=== PATIENT | male | born 1945 | race Caucasian/White ===

== ENCOUNTER → 2016-10-10 | Outpatient (CLI) | payer MEDICARE, OTHER ==
[~2016-10-10] MED LIST: CEPH500C PO; CYCL10TA9 PO; INSASP10V SQ; INSU100C; INSU100I5 SQ; POLY17PO23 PO; PREG25CA; TRM50T PO
--- OUTSIDE RECORDS SUMMARY | 2016-10-10 15:04 | XMS REPORT | Continuity of Care Document ---
Author Author [facility] Organization [facility] Address Unknown Phone Unavailable Care Team Providers Care Manager Wind Name Role Phone Josy Burleson PCP [phone] Source Comments Some departments are not documenting in the electronic medical record. If you do not see the information that you expected, contact Release of Information in the Health Information Management department at [phone] for further assistance in locating additional records.[facility] Active Allergies and Adverse Reactions Allergen Noted Date Severity Reactions Comments Iv Contrast Dye, Iodine 03/18/2013 RASH Containing Current Medications Prescription Sig. Disp. Refills Start End Date Status Date insulin detemir(+) Inject 30 Units into Active (LEVEMIR) 100 unit/mL area(s) as directed at Soln bedtime daily. insulin lispro(+) Inject 30 Units into Active (HUMALOG) 100 unit/mL area(s) as directed three injection times daily before meals. amiodarone (CORDARONE) Take 200 mg by mouth at Active 200 mg tablet bedtime daily. aspirin 325 mg tablet Take 1 Tab by mouth 30 Tab 0 03/13/20 Active daily. 14 oxyCODONE-acetaminophen Take 1-2 Tabs by mouth 80 Tab 0 03/13/20 Active (PERCOCET; ENDOCET; every 4 hours as needed 14 ROXICET) 5-325 mg tablet for Pain Max 12 tabs/day docusate (COLACE) 100 mg Take 1 Cap by mouth twice 30 Cap 0 03/13/20 Active capsule daily. 14 clindamycin(+) (CLEOCIN) Take 1 Cap by mouth three 100 Cap 0 03/25/20 Active 300 mg capsule times daily. 14 Active Problems Problem Noted Date Cellulitis of toe 03/28/2014 Osteomyelitis of toe (HCC) 03/28/2014 Foot infection 03/10/2014 Retinal detachment, tractional, left eye 12/13/2013 Overview: S/p PPV, MP, L ast Assessment & Plan: POW 1 after PPV EL looks good. Taper PF to TID, stop antibiotics. Non-proliferative diabetic retinopathy, mild, right eye 09/03/2013 Last Assessment & Plan: - no significant DME on exam today. Discussed importance of continued glucose monitoring Vitreous hemorrhage of left eye (HCC) 07/07/2013 Overview: Noticed as rapid loss of vision 4-5 weeks ago. L ast Assessment & Plan: Formatting of this note may be different from the original. Here for TOYIN in prep for surgery next week. Answered all questions. PDR in OS. present for discussion. Intravitreal Injection Procedure OCT and other investigations were carefully reviewed and a decision was made to inject the eye with medication for treatment of the condition. I discussed diagnosis and plan for intravitreal injection with patient. Risks, benefits and alternatives were discussed with patient. Risk of infection, and signs and symptoms of infection discussed at length with patient. Discussed fluctuating and deteriorating vision over the course of treatment. Patient elects to proceed with injection, informed consent was obtained and all questions were answered. Eye OS Diagnosis: PDR VH Pre-injection drops: Tetracaine 0.5% drops X 5% Betadine X Speculum used X Tetravisc X Injection Needle: 27 Gauge Needle 30 Gauge Needle Needle supplied with medication X Intravitreal injection: Concentration Volume (in mL) Aflibercept (Eylea) 2 mg / 0.05 mL Ranibizumab (Lucentis) 0.3 mg / 0.05 mL Ranibizumab (Lucentis) 0.5 mg / 0.05 mL Bevacizumab (Avastin) 1.25 mg / 0.05 mL X Triamcinolone (Kenalog) 40 mg / mL Triamcinolone (Triesence) 40 mg / mL Vancomycin 1 mg / 100 microLiters Ceftazidime 2 mg / 100 microLiters Zero units wasted Post-operative examination: Intraocular pressure checked by tonopen and found to be wnl mmHg; no complications noted X Antibiotic ointment instilled in the eye Patient stable at discharge I personally performed the Injection Nj Martell MD Pseudophakia of both eyes 07/07/2013 Persistent vasculature syndrome of left eye 03/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 L ast Assessment & Plan: Observe Proliferative diabetic retinopathy of left eye 03/18/2013 Last Assessment & Plan: Dense VH TRD noted on b scan. Plan TOYIN and then PPV MP EL. Had a detailed discussion with him and his in detail. Discussed high risk of blindness in this condition. Discussed risks, benefits and alternatives of surgical procedure in detail. I explained the procedure in detail. Discussed 60% chance of success with this surgery, 40 % chance of reop. Discussed rare risk of infection, blindness and loss of eye. Discussed cataract progression post-surgery. Patient voiced an understanding of our discussion. Patient s was present for the discussion. Social History Tobacco Use Types Packs/Day Years Used Date Never Smoker Smokeless Tobacco: Never Used Alcohol Use Drinks/Week oz/Week Comments No Last Filed Vital Signs Vital Sign Reading Time Taken Blood Pressure 120/70 04/14/2014 11:15 AM CDT Pulse 60 04/14/2014 11:15 AM CDT Temperature 36.7 C (98.1 F) 04/14/2014 11:15 AM CDT Respiratory Rate 12 04/14/2014 11:15 AM CDT Height 1.905 m (6' 3") 04/14/2014 11:57 AM CDT Weight 83.915 kg (185 lb) 04/14/2014 11:57 AM CDT Body Mass Index 23.12 04/14/2014 11:57 AM CDT Oxygen Saturation 96% 03/13/2014 2:10 PM CDT Plan of Care Health Maintenance Due Date Last Done Comments Physical (Comprehensive) 1952 Exam Pertussis Vaccine 1955 Tetanus Vaccine 1961 Colorectal Cancer 1994 Screening Shingles Vaccine 2004 Prevnar/Pneumovax (#1) 2009 Influenza Vaccine 04/18/2016 Results from Last 3 Months Not on file
[2016-10-10 15:19] LABS: BASOPHILS % (AUTO) 1 % (0-10); EOSINOPHILS # (AUTO) 0.1 10^3/uL (0.0-0.3); EOSINOPHILS % (AUTO) 1 % (0-10); LYMPHOCYTES # (AUTO) 1.3 X 10^3 (1.0-4.0); LYMPHOCYTES % (AUTO) 17 % (12-44); MEAN CORPUSCULAR HEMOGLOBIN 28 PG (25-34); MEAN CORPUSCULAR HGB CONC 34 G/DL (32-36); MEAN CORPUSCULAR VOLUME 84 FL (80-99); MEAN PLATELET VOLUME 9.1 FL (7.4-10.4); MONOCYTES # (AUTO) 0.6 X 10^3 (0.0-1.0); MONOCYTES % (AUTO) 7 % (0-12); NEUTROPHILS # (AUTO) 5.6 X 10^3 (1.8-7.8); NEUTROPHILS % (AUTO) 74 % (42-75); PLATELET COUNT 318 10^3/uL (130-400); RED BLOOD COUNT 4.35 10^6/uL (4.35-5.85); RED CELL DISTRIBUTION WIDTH 13.3 % (10.0-14.5); WHITE BLOOD COUNT 7.5 10^3/uL (4.3-11.0)
[2016-10-10 15:40] LABS: ALBUMIN 3.9 G/DL (3.2-4.5); BILIRUBIN,TOTAL 1.2 MG/DL (0.1-1.0); CREATININE SERUM 1.27 MG/DL (0.60-1.30); POTASSIUM 4.3 MMOL/L (3.6-5.0); TOTAL PROTEIN 7.2 G/DL (6.4-8.2)
[2016-10-10 16:26] LABS: THYROID STIMULATING HORMONE 9.45 UIU/ML (0.35-4.94)
== END ==
LOC: LAB 14:57
PROVIDERS: ATTEND Internal Medicine
DX: R53.83 Other fatigue (principal); R60.9 Edema, unspecified; I25.10 Atherosclerotic heart disease of native coronary artery without angina pectoris; K59.00 Constipation, unspecified
CPT/HCPCS: 36415; 80053; 83880; 84439; 84443; 85025

== ENCOUNTER → 2016-11-21 | Outpatient (CLI) | payer MEDICARE, OTHER ==
--- NOTE | 2016-11-21 16:02 | Diagnostic Imaging Report ---
INDICATION: Fell. Neck pain. EXAMINATION: Four views of the cervical spine were obtained. FINDINGS: Good alignment of the vertebral bodies. Body heights and disc spaces are well maintained. The odontoid is intact. The atlantoaxial joint appears normal. On the lateral view, there is a question of fracture along the inferior posterior aspect of the C6 vertebral body. Facets appear in good alignment. The prevertebral soft tissues are not widened. IMPRESSION: Question of possible fracture along the posterior inferior aspect of the C7 vertebral body. With patient's symptoms would recommend CT scan of the cervical spine. Critical finding. Report was called to Dr. Thai Burleson) at 3:51 p.m., by rishi. Dictated by: Dictated on workstation # [id number]
== END ==
LOC: RAD 15:08
PROVIDERS: ATTEND Internal Medicine
DX: M54.2 Cervicalgia (principal); X58.XXXA Exposure to other specified factors, initial encounter; Y99.8 Other external cause status
CPT/HCPCS: 72040

== ENCOUNTER 2017-01-15 11:21 | Outpatient (RCR) | payer MEDICARE, OTHER | END 2017-01-15 13:45 | disposition home or self-care (01) | PROVIDERS: ATTEND Internal Medicine | DX: M54.2 Cervicalgia (principal); M62.830 Muscle spasm of back ==

== ENCOUNTER 2017-02-14 17:57 | Inpatient (IN) | payer MEDICARE, OTHER ==
[~2017-02-14] VITALS: Ht 190.5 cm; Wt 74.8 kg
--- OUTSIDE RECORDS SUMMARY | 2017-02-14 18:03 | XMS REPORT | Continuity of Care Document ---
Author Author [facility] Organization [facility] Address Unknown Phone Unavailable Care Team Providers Care Before School Babysitter Name Role Phone Thai Burleson Josy PCP [phone] Source Comments Some departments are not documenting in the electronic medical record. If you do not see the information that you expected, contact Release of Information in the Health Information Management department at [phone] for further assistance in locating additional records.[facility] Active Allergies and Adverse Reactions Allergen Noted [...] antibiotics. Non-proliferative diabetic retinopathy, mild, right eye ([facility]) 09/03/2013 Last Assessment & Plan: - no significant DME on exam today. Discussed importance of continued glucose monitoring Vitreous hemorrhage of left eye ([facility]) 07/07/2013 Overview: Noticed as rapid loss of [...] Observe Proliferative diabetic retinopathy of left eye (HCC) 03/18/2013 Last Assessment & Plan: Dense VH TRD noted on b scan. Plan TOYIN and then PPV RICKEY EL. Had a detailed discussion with him [...] Vaccine 2004 Prevnar/Pneumovax (#1) 2009 Influenza Vaccine 04/18/2017 Results from Last 3 Months Not on file
--- OUTSIDE RECORDS SUMMARY | 2017-02-14 18:04 | XMS REPORT | Continuity of Care Document ---
Author Author [facility] Organization [facility] Address Unknown Phone Unavailable Allergies Active Description Code Type Severity Reaction Onset Reported/Identified Relationship to Patient Clinical Status Yes Iodinated Contrast Media - IV Dye [id number] Drug Allergy Mild RASH 01/06/2007 Yes Iodinated Contrast Media - Oral and [id number] Drug Allergy Mild RASH 01/06/2007 Medications Problems Date Dx Coded Attending Type Code Diagnosis Diagnosed By 12/24/2010 Ot 880.03 OPEN WOUND OF UPPER ARM 12/24/2010 Ot E000.8 OTHER EXTERNAL CAUSE STATUS 12/24/2010 Ot E849.0 ACCIDENT IN HOME 12/24/2010 Ot E906.0 DOG BITE 12/27/2010 Ot 578.1 BLOOD IN STOOL 12/27/2010 Ot 783.21 LOSS OF WEIGHT 12/27/2010 Ot 787.99 OTHER GI SYSTEM SYMPTOMS 01/11/2011 Ot 041.00 BACTERIAL INFEC DUE TO UNSPECIFIED STREP 01/11/2011 Ot 041.04 STREPTOCOCCUS INFECTION NOS, GROUP D (EN 01/11/2011 Ot 041.11 METHICILLIN SUSCEPTIBLE STAPHYLOCOCCUS A 01/11/2011 Ot 250.63 DIAB W NEURO MANIFEST, TYPE I [JUVENILE 01/11/2011 Ot 337.1 AUT NEUROPTHY IN OTH DIS 01/11/2011 Ot 354.2 ULNAR NERVE LESION 01/11/2011 Ot 414.01 CORONARY ATHEROSCLEROSIS OF [place] CORON 01/11/2011 Ot 585.3 CHRONIC KIDNEY DISEASE, STAGE III (MODER 01/11/2011 Ot 607.84 IMPOTENCE, ORGANIC ORIGN 01/11/2011 Ot 682.6 CELLULITIS OF LEG 01/11/2011 Ot 682.7 CELLULITIS OF FOOT 01/11/2011 Ot 707.15 ULCER OF OTHER PART OF FOOT 01/11/2011 Ot V15.82 HISTORY OF TOBACCO USE 01/11/2011 Ot 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 04/14/2011 Ot 250.80 DIAB W OT SPEC MANIFEST, TYPE II OR UNS 04/14/2011 Ot 707.15 ULCER OF OTHER PART OF FOOT 05/13/2011 Ot 250.80 DIAB W OTH SPEC MANIFEST, TYPE II OR UNS 05/13/2011 Ot 707.15 ULCER OF OTHER PART OF FOOT 05/11/2013 MARTHA DAHL DO Ot 250.80 DIAB W OTH SPEC MANIFEST, TYPE II OR UNS 05/11/2013 MARTHA DAHL DO Ot 427.31 ATRIAL FIBRILLATION 05/11/2013 MARTHA DAHL DO Ot 922.2 CONTUSION ABDOMINAL WALL 05/11/2013 MARTHA DAHL DO Ot 959.19 OTH INJURY OF OTHER SITES OF TRUNK 05/11/2013 MARTHA DAHL DO Ot E000.8 OTHER EXTERNAL CAUSE STATUS 05/11/2013 MARTHA DAHL DO Ot E849.0 ACCIDENT IN HOME 05/11/2013 MARTHA DAHL DO Ot E917.7 FURNITURE ACC W SUB FALL 08/04/2015 Ot 786.09 08/04/2015 Ot 681.10 08/04/2015 MARTHA DAHL DO Ot 396.3 08/04/2015 MARTHA DAHL DO Ot 427.31 08/04/2015 DENA LINDER, BEVERLY Ferris Ot 136.9 08/04/2015 DENA LINDER, BEVERLY Ferris Ot 250.80 08/04/2015 DENA LINDER, BEVERLY Ferris Ot 733.99 08/04/2015 OTHER, UNLISTED Ot V58.62 08/04/2015 OTHER, UNLISTED Ot V58.83 08/04/2015 GISSELL LINDER, BOZENA Longo Ot V58.62 08/04/2015 GISSELL LINDER, BOZENA Longo Ot V58.83 08/04/2015 OTHER, UNLISTED Ot V58.62 08/04/2015 OTHER, UNLISTED Ot V58.83 08/24/2015 DENA LINDER, BEVERLY Ferris Ot M54.5 08/24/2015 DENA LINDER, BEVERLY Ferris Ot W19.XXXA 08/24/2015 DENA LINDER, BEVERLY Ferris Ot Y99.8 12/28/2015 NALINI HARELY MD Ot E11.42 TYPE 2 DIABETES MELLITUS WITH DIABETIC P 12/28/2015 NALINI HARLEY MD Ot Z79.4 RESIDENTIAL (CURRENT) USE OF INSULIN 12/29/2015 ODGERS MD, NALINI K Ot E11.42 TYPE 2 DIABETES MELLITUS WITH DIABETIC P 12/29/2015 CRICKET LINDER, NALINI Ibarra Ot Z79.4 FARMWORKER BULBS (CURRENT) USE OF INSULIN 01/02/2016 Ot 681.10 CELLULITIS, TOE NOS 01/02/2016 MARTHA DAHL DO Ot 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 01/02/2016 MARTHA DAHL DO Ot 427.31 ATRIAL FIBRILLATION 01/02/2016 DENA LINDER, BEVERLY Ferris Ot 136.9 INFECT/PARASITE DIS NOS 01/02/2016 DENA LINDER, BEVERLY Ferris Ot 250.80 DIAB W OTH SPEC MANIFEST, TYPE II OR UNS 01/02/2016 BEVERLY FERNANDES MD Ot 733.99 BONE CARTILAGE DIS NEC 01/02/2016 OTHER, UNLISTED Ot V58.62 ENCOUNT FOR LONG-TERM(CURRENT) USE OF AN 01/02/2016 OTHER, UNLISTED Ot V58.83 ENCOUNTER FOR THERAPEUTIC DRUG MONITORIN 01/02/2016 BOZENA BORRERO MD Ot V58.62 ENCOUNT FOR LONG-TERM(CURRENT) USE OF AN 01/02/2016 BOZENA BORRERO MD Ot V58.83 ENCOUNTER FOR THERAPEUTIC DRUG MONITORIN 01/02/2016 OTHER, UNLISTED Ot V58.62 ENCOUNT FOR LONG-TERM(CURRENT) USE OF AN 01/02/2016 OTHER, UNLISTED Ot V58.83 ENCOUNTER FOR THERAPEUTIC DRUG MONITORIN 01/02/2016 BEVERLY FERNANDES MD Ot M54.5 LOW BACK PAIN 01/02/2016 BEVERLY FERNANDES MD Ot W19.XXXA UNSPECIFIED FALL, INITIAL ENCOUNTER 01/02/2016 DENA LINDER, BEVERLY Ferris Ot Y99.8 OTHER EXTERNAL CAUSE STATUS 01/23/2016 DENA LINDER, BEVERLY Ferris Ot E11.43 TYPE 2 DIABETES W DIABETIC AUTONOMIC (PO 01/23/2016 BEVERLY FERNANDES MD Ot Z91.81 HISTORY OF FALLING 01/31/2016 BEVERLY FERNANDES MD Ot E11.43 TYPE 2 DIABETES W DIABETIC AUTONOMIC (PO 01/31/2016 BEVERLY FERNANDES MD Ot Z91.81 HISTORY OF FALLING 03/06/2016 BEVERLY FERNANDES MD Ot E11.43 TYPE 2 DIABETES W DIABETIC AUTONOMIC (PO 03/06/2016 BEVERLY FERNANDES MD Ot Z91.81 HISTORY OF FALLING 04/18/2016 Ot 681.10 CELLULITIS, TOE NOS 04/18/2016 MARTHA DAHL DO Ot 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 04/18/2016 NABILA RIGO BACHVega Ibarra Ot 427.31 ATRIAL FIBRILLATION 04/18/2016 BEVERLY FERNANDES MD Ot 136.9 INFECT/PARASITE DIS NOS 04/18/2016 BEVERLY FERNANDES MD Ot 250.80 DIAB W OTH SPEC MANIFEST, TYPE II OR UNS 04/18/2016 BEVERLY FERNANDES MD Ot 733.99 BONE CARTILAGE DIS NEC 04/18/2016 OTHER, UNLISTED Ot V58.62 ENCOUNT FOR LONG-TERM(CURRENT) USE OF AN 04/18/2016 OTHER, UNLISTED Ot V58.83 ENCOUNTER FOR THERAPEUTIC DRUG MONITORIN 04/18/2016 BOZENA BORRERO MD Ot V58.62 ENCOUNT FOR LONG-TERM(CURRENT) USE OF AN 04/18/2016 BOZENA BORRERO MD Ot V58.83 ENCOUNTER FOR THERAPEUTIC DRUG MONITORIN 04/18/2016 OTHER, UNLISTED Ot V58.62 ENCOUNT FOR LONG-TERM(CURRENT) USE OF AN 04/18/2016 OTHER, UNLISTED Ot V58.83 ENCOUNTER FOR THERAPEUTIC DRUG MONITORIN 04/18/2016 BEVERLY FERNANDES MD Ot M54.5 LOW BACK PAIN 04/18/2016 BEVERLY FERNANDES MD Ot W19.XXXA UNSPECIFIED FALL, INITIAL ENCOUNTER 04/18/2016 BEVERLY FERNANDES MD Ot Y99.8 OTHER EXTERNAL CAUSE STATUS 04/19/2016 BEVERLY FERNANDES MD Ot M79.601 PAIN IN RIGHT ARM 04/19/2016 BEVERLY FERNANDES MD Ot M79.602 PAIN IN LEFT ARM 04/19/2016 BEVERLY FERNANDES MD Ot M79.604 PAIN IN RIGHT LEG 04/19/2016 BEVERLY FERNANDES MD Ot M79.605 PAIN IN LEFT LEG 04/19/2016 BEVERLY FERNANDES MD Ot R29.898 OT SYMPTOMS AND SIGNS INVOLVING THE MUS 04/23/2016 BEVERLY FERNANDES MD Ot M79.601 PAIN IN RIGHT ARM 04/23/2016 BEVERLY FERNANDES MD Ot M79.602 PAIN IN LEFT ARM 04/23/2016 BEVERLY FERNANDES MD Ot M79.604 PAIN IN RIGHT LEG 04/23/2016 BEVERLY FERNANDES MD Ot M79.605 PAIN IN LEFT LEG 04/23/2016 BEVERLY FERNANDES MD Ot R29.898 OTH SYMPTOMS AND SIGNS INVOLVING THE MUS 05/09/2016 BEVERLY FERNANDES MD Ot M79.601 PAIN IN RIGHT ARM 05/09/2016 BEVERLY FERNANDES MD Ot M79.602 PAIN IN LEFT ARM 05/09/2016 BEVERLY FERNANDES MD Ot M79.604 PAIN IN RIGHT LEG 05/09/2016 BEVERLY FERNANDES MD Ot M79.605 PAIN IN LEFT LEG 05/09/2016 BEVERLY FERNANDES MD Ot R29.898 OTH SYMPTOMS AND SIGNS INVOLVING THE MUS 10/10/2016 BEVERLY FERNANDES MD Ot M79.601 PAIN IN RIGHT ARM 10/10/2016 BEVERLY FERNANDES MD Ot M79.602 PAIN IN LEFT ARM 10/10/2016 BEVERLY FERNANDES MD Ot M79.604 PAIN IN RIGHT LEG 10/10/2016 BEVERLY FERNANDES MD Ot M79.605 PAIN IN LEFT LEG 10/10/2016 BEVERLY FERNANDES MD Ot R29.898 OTH SYMPTOMS AND SIGNS INVOLVING THE MUS 10/10/2016 Ot 681.10 CELLULITIS, TOE NOS 10/10/2016 MARTHA DAHL DO Ot 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 10/10/2016 MARTHA DAHL DO Ot 427.31 ATRIAL FIBRILLATION 10/10/2016 BEVERLY FERNANDES MD Ot 136.9 INFECT/PARASITE DIS NOS 10/10/2016 BEVERLY FERNANDES MD Ot 250.80 DIAB W OTH SPEC MANIFEST, TYPE II OR UNS 10/10/2016 BEVERLY FERNANDES MD Ot 733.99 BONE CARTILAGE DIS NEC 10/10/2016 OTHER, UNLISTED Ot V58.62 ENCOUNT FOR LONG-TERM(CURRENT) USE OF AN 10/10/2016 OTHER, UNLISTED Ot V58.83 ENCOUNTER FOR THERAPEUTIC DRUG MONITORIN 10/10/2016 BOZENA BORRERO MD Ot V58.62 ENCOUNT FOR LONG-TERM(CURRENT) USE OF AN 10/10/2016 BOZENA BORRERO MD Ot V58.83 ENCOUNTER FOR THERAPEUTIC DRUG MONITORIN 10/10/2016 OTHER, UNLISTED Ot V58.62 ENCOUNT FOR LONG-TERM(CURRENT) USE OF AN 10/10/2016 OTHER, UNLISTED Ot V58.83 ENCOUNTER FOR THERAPEUTIC DRUG MONITORIN 10/10/2016 BEVERLY FERNANDES MD Ot M54.5 LOW BACK PAIN 10/10/2016 BEVERLY FERNANDES MD Ot W19.XXXA UNSPECIFIED FALL, INITIAL ENCOUNTER 10/10/2016 BEVERLY FERNANDES MD Ot Y99.8 OTHER EXTERNAL CAUSE STATUS 10/10/2016 BEVERLY FERNANDES MD Ot M79.601 PAIN IN RIGHT ARM 10/10/2016 BEVERLY FERNANDES MD Ot M79.602 PAIN IN LEFT ARM 10/10/2016 BEVERLY FERNANDES MD Ot M79.604 PAIN IN RIGHT LEG 10/10/2016 BEVERLY FERNANDES MD, Ot M79.605 PAIN IN LEFT LEG 10/10/2016 BEVERLY FERNANDES MD Ot R29.898 OTH SYMPTOMS AND SIGNS INVOLVING THE MUS 11/01/2016 BEVERLY FERNANDES MD Ot I25.10 ATHSCL HEART DISEASE OF [place] CORONARY 11/01/2016 BEVERLY FERNANDES MD Ot K59.00 CONSTIPATION, UNSPECIFIED 11/01/2016 BEVERLY FERNANDES MD Ot R53.83 OTHER FATIGUE 11/01/2016 BEVERLY FERNANDES MD Ot R60.9 EDEMA, UNSPECIFIED 12/23/2016 BEVERLY FERNANDES MD Ot M54.2 CERVICALGIA 12/23/2016 BEVERLY FERNANDES MD Ot M62.830 MUSCLE SPASM OF BACK 12/31/2016 BEVERLY FERNANDES MD Ot M54.2 CERVICALGIA 12/31/2016 BEVERLY FERNANDES MD Ot X58.XXXA EXPOSURE TO OTHER SPECIFIED FACTORS, INI 12/31/2016 BEVERLY FERNANDES MD Ot Y99.8 OTHER EXTERNAL CAUSE STATUS 01/10/2017 BEVERLY FERNANDES MD Ot M54.2 CERVICALGIA 01/10/2017 BEVERLY FERNANDES MD Ot M62.830 MUSCLE SPASM OF BACK Procedures Code Description Performed By Performed On 80.88 01/04/2011 83.39 01/09/2011 86.59 01/09/2011 Results Test Result Range Complete blood count (CBC) with automated white blood cell (WBC) differential - 10/10/16 15:10 Blood leukocytes automated count (number/volume) 7.5 10*3/ uL 4.3-11.0 Blood erythrocytes automated count (number/volume) 4.35 10*6 /uL 4.35-5.85 Venous blood hemoglobin measurement (mass/volume) 12.3 g/dL 13.3-17.7 Blood hematocrit (volume fraction) 37 % 40-54 Automated erythrocyte mean corpuscular volume 84 [foz_us] 80-99 Automated erythrocyte mean corpuscular hemoglobin (mass per erythrocyte) 28 pg 25-34 Automated erythrocyte mean corpuscular hemoglobin concentration measurement ( mass/volume) 34 g/dL 32-36 Automated erythrocyte distribution width ratio 13.3 % 10.0-14.5 Automated blood platelet count (count/volume) 318 10*3/uL 130-400 Automated blood platelet mean volume measurement 9.1 [foz_us ] 7.4-10.4 Automated blood neutrophils/100 leukocytes 74 % 42-75 Automated blood lymphocytes/100 leukocytes 17 % 12-44 Blood monocytes/100 leukocytes 7 % 0-12 Automated blood eosinophils/100 leukocytes 1 % 0-10 Automated blood basophils/100 leukocytes 1 % 0-10 Blood neutrophils automated count (number/volume) 5.6 10*3 1.8-7.8 Blood lymphocytes automated count (number/volume) 1.3 10*3 1.0-4.0 Blood monocytes automated count (number/volume) 0.6 10*3 0.0-1.0 Automated eosinophil count 0.1 10*3/uL 0.0-0.3 Automated blood basophil count (count/volume) 0.0 10*3/uL 0.0-0.1 Comprehensive metabolic panel - 10/10/16 15:10 Serum or plasma sodium measurement (moles/volume) 139 mmol/ L 135-145 Serum or plasma potassium measurement (moles/volume) 4.3 mmol/L 3.6-5.0 Serum or plasma chloride measurement (moles/volume) 101 mmol /L 98-107 Carbon dioxide 24 mmol/L 21-32 Serum or plasma anion gap determination (moles/volume) 14 mmol/L 5-14 Serum or plasma urea nitrogen measurement (mass/volume) 13 mg/dL 7-18 Serum or plasma creatinine measurement (mass/volume) 1.27 mg /dL 0.60-1.30 Serum or plasma urea nitrogen/creatinine mass ratio 10 NRG Serum or plasma creatinine measurement with calculation of estimated glomerular filtration rate 56 NRG Serum or plasma glucose measurement (mass/volume) 215 mg/dL 70-105 Serum or plasma calcium measurement (mass/volume) 9.0 mg/dL 8.5-10.1 Serum or plasma total bilirubin measurement (mass/volume) 1.2 mg/dL 0.1-1.0 Serum or plasma alkaline phosphatase measurement (enzymatic activity/volume) 39 U/L 40-136 Serum or plasma aspartate aminotransferase measurement (enzymatic activity/ volume) 15 U/L 5-34 Serum or plasma alanine aminotransferase measurement (enzymatic activity/volume ) 12 U/L 0-55 Serum or plasma protein measurement (mass/volume) 7.2 g/dL 6.4-8.2 Serum or plasma albumin measurement (mass/volume) 3.9 g/dL 3.2-4.5 Serum or plasma lithium measurement (moles/volume) - 10/10/16 15:10 BNP level 598.3 pg/mL <100.0 THYROID STIMULATING HORMONE - 10/10/16 15:10 THYROID STIMULATING HORMONE 9.45 u[iU]/mL 0.35-4.94 Serum or plasma thyroxine (T4) free measurement (mass/volume) - 10/10/16 15:10 Serum or plasma thyroxine (T4) free measurement (mass/volume) 0.93 ng/dL 0.70-1.48 Encounters ACCT No. Visit Date/Time Discharge Status Pt. Type Provider Facility Loc./Unit Complaint [id number] 01/15/2017 11:21:00 2016 13:45:00 DIS Outpatient BEVERLY FERNANDES MD [facility] REHAB CERVICALGIA WITH MUSCLE SPASM POST FALL [id number] 02/15/2016 11:16:00 2015 14:50:00 DIS Outpatient BEVERLY FERNANDES MD [facility] REHAB DIABETES MELLITUS W PERIPHERAL NEUROPATHY;DECONDIT [id number] 12/28/2015 15:08:00 2015 17:41:00 DIS Emergency NALINI HARLEY MD [facility] ER WEAKNESS,LOSS OF CONTROL IN LEGS [id number] 03/24/2014 18:29:00 2013 23:59:59 CLS Outpatient OTHER, UNLISTED [facility] LABNPT RESIDENTIAL MED USE, [id number] 03/15/2014 16:50:00 2013 23:59:59 CLS Outpatient GISSELL LINDER, BOZENA E [facility] LABNPT FARMWORKER BULBS MED USE OF ANTIBIOTICS [id number] 03/14/2014 20:30:00 2013 23:59:59 CLS Outpatient OTHER, UNLISTED [facility] LABNPT FARMWORKER BULBS USE OF ANTIBIOTICS [id number] 03/02/2014 10:53:00 2013 23:59:59 CLS Outpatient BEVERLY FERNANDES MD [facility] RAD DIABETES R FOOT INFECTION [id number] 05/14/2013 10:52:00 2012 23:59:59 CLS Outpatient MARTHA DAHL DO [facility] CARD AFIB [id number] 05/11/2013 05:27:00 2012 07:55:00 DIS Emergency NABILA MARTHA [facility] ER FALL/BACK PAIN LOW BLOOD SUGAR [id number] 11/21/2016 15:08:00 ACT Outpatient BEVERLY FERNANDES MD [facility] RAD NECK PAIN [id number] 10/10/2016 14:57:00 ACT Outpatient BEVERLY FERNANDES MD [facility] LAB FATIGUE [id number] 04/18/2016 08:44:00 ACT Outpatient BEVERLY FERNANDES MD [facility] RAD BILATERAL UPPER AND LOWER WEAKNESS AND LUMBAR BACK [id number] 08/04/2015 10:59:00 ACT Outpatient BEVERLY FERNANDES MD [facility] RAD FALL WITH BACK PAIN [id number] 05/24/2011 13:49:00 Document Registration [id number] 05/13/2011 11:15:00 Document Registration [id number] 04/11/2011 11:45:00 Document Registration [id number] 01/02/2011 18:18:00 Document Registration [id number] 12/27/2010 06:39:00 Document Registration [id number] 12/24/2010 20:47:00 Document Registration [id number] 03/01/2010 14:39:00 Document Registration
--- NOTE | 2017-02-14 18:34 | ED Lower Extremity ---
General Chief Complaint: General Problems/Pain Stated Complaint: LT INNER THIGH PAIN Nursing Triage Note: PT AMBULATED TO ROOM. PT COMPLAINS OF LEFT INNER THIGH PAIN AND REDNESS TO LEFT ANKLE WELL. PT STATES THAT HE WENT TO THE DOCTOR FRIDAY FOR THIS SAME REASON AND HE WAS PRESCRIBED ANTIBIOTICS AND NOTHING HAS GOTTEN BETTER SINCE THEN. Nursing Sepsis Screen: No Definite Risk Source: patient Exam Limitations: no limitations (REUBEN ELLIS APRN) History of Present Illness Time seen by provider: 18:32 Initial Comments To ER with left leg pain. This began at the first of this week. He called his regular physician Dr. Burleson who treated him with antibiotics. Patient denies improvement. He is a diabetic. Denies fevers or chills. He now has redness to the medial aspect of the entire left leg from the ankle all the way up to the groin. 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 Onset: just prior to arrival Severity: moderate Pain/Injury Location: left leg Modifying Factors: Worse With Movement (REUBEN ELLIS APRN) Allergies and Home Medications Allergies Coded Allergies: Iodinated Contrast- Oral and IV Dye (Unverified Allergy, Mild, RASH, ) Home Medications Insulin Determir 100 Unit/1 Ml Insuln.pen, 45 UNITS SQ HS, (Reported) Insulin Human Lispro 100 U/Ml Vial, 20 UNITS SQ, (Reported) 20 UNITS BEFORE EVENING MEAL Insulin Lispro 100 Unit/1 Ml Cartridge, 15 UNITS, (Reported) BEFORE NOON MEAL Constitutional: see HPI EENTM: see HPI Respiratory: no symptoms reported Cardiovascular: no symptoms reported Genitourinary: no symptoms reported Musculoskeletal: see HPI Skin: see HPI Psychiatric/Neurological: No Symptoms Reported (REUBEN ELLIS APRN) Past Fhafhqs-Dhfoaj-Udaztk Hx Patient Social History Alcohol Use: Denies Use Recreational Drug Use: No Smoking Status: Never a Smoker 2nd Hand Smoke Exposure: No Recent Foreign Travel: No Contact w/Someone Who Travel: No Recent Infectious Disease Expo: No Recent Hopitalizations: No (REUBEN ELLIS APRN) Immunizations Up To Date Tetanus Booster (TDap): Less than 5yrs (REUBEN ELLIS APRN) Seasonal Allergies Seasonal Allergies: No (REUBEN ELLIS APRN) Surgeries HX Surgeries: Yes (eye surg, ear surg,) Surgeries: CABG (REUBEN ELLIS APRN) Respiratory Hx Respiratory Disorders: No (REUBEN ELLIS APRN) Cardiovascular Hx Cardiac Disorders: Yes Cardiac Disorders: Coronary Artery Disease (REUBEN ELLIS APRN) Neurological Hx Neurological Disorders: Yes Neurological Disorders: Neuropathy (REUBEN ELLIS APRN) Genitourinary Hx Genitourinary Disorders: Yes (ED--S/P IMPLANT) (REUBEN ELLIS APRN) Gastrointestinal Hx Gastrointestinal Disorders: Yes Gastrointestinal Disorders: Chronic Constipation, Gall Bladder Disease (REUBEN ELLIS APRN) Musculoskeletal Hx Musculoskeletal Disorders: No (REUBEN ELLIS APRN) Endocrine Hx Endocrine Disorders: Yes Endocrine Disorders: Diabetes, Insulin dep (REUBEN ELLIS APRN) HEENT HX ENT Disorders: Yes (BENIGN TUMOR RIGHT EAR--S/P REMOVAL) HEENT Disorders: Cataract (REUBEN ELLIS APRN) Cancer Hx Cancer: No (REUBEN ELLIS APRN) Psychosocial Hx Psychiatric Problems: No (REUBEN ELLIS APRN) Integumentary HX Skin/Integumentary Disorder: No (REUBEN ELLIS APRN) Blood Transfusions Hx Blood Disorders: No (REUBEN ELLIS APRN) Physical Exam Vital Signs Vital Sign - Last 12Hours 02/14/17 18:11 Temp 98.8 Pulse 72 Resp 20 B/P (MAP) 167/73 Pulse Ox 98 O2 Delivery Room Air (PEDRO WHITING MD) Vital Signs Capillary Refill : Less Than 3 Seconds (REUBEN ELLIS APRN) General Appearance: WD/WN, no apparent distress HEENT: PERRL/EOMI, normal ENT inspection Neck: non-tender, full range of motion Cardiovascular: regular rate, rhythm, no murmur Respiratory: normal breath sounds, no respiratory distress, no accessory muscle use Gastrointestinal: normal bowel sounds, non tender, soft Hips: bilateral hip non-tender, bilateral hip normal inspection, bilateral hip normal range of motion Legs: left leg pain, left leg soft tissue tenderness, left leg other ( erythematous left lower leg with lymphangitis up the medial aspect of the leg all the way to the groin) Knees: bilateral knee non-tender, bilateral knee normal inspection, bilateral knee normal range of motion Ankles: bilateral ankle non-tender, bilateral ankle normal inspection, bilateral ankle normal range of motion Feet: bilateral foot non-tender, bilateral foot normal inspection, bilateral foot normal range of motion Neurologic/Psychiatric: alert, normal mood/affect, oriented x 3 Skin: normal color, warm/dry Comments There is no crepitus to palpation to any portion of the erythematous leg to suggest a necrotizing process (REUBEN ELLIS APRN) Progress/Results/Core Measures Results/Orders Lab Results Laboratory Tests Test 02/14/17 18:57 02/14/17 19:07 Range/Units White Blood Count 11.8 H 4.3-11.0 10^3/uL Red Blood Count 3.82 L 4.35-5.85 10^6/uL Hemoglobin 11.0 L 13.3-17.7 G/DL Hematocrit 32 L 40-54 % Mean Corpuscular Volume 85 80-99 FL Mean Corpuscular Hemoglobin 29 25-34 PG Mean Corpuscular Hemoglobin Concent 34 32-36 G/DL Red Cell Distribution Width 13.7 10.0-14.5 % Platelet Count 250 130-400 10^3/uL Mean Platelet Volume 9.6 7.4-10.4 FL Neutrophils (%) (Auto) 71 42-75 % Lymphocytes (%) (Auto) 15 12-44 % Monocytes (%) (Auto) 12 0-12 % Eosinophils (%) (Auto) 2 0-10 % Basophils (%) (Auto) 0 0-10 % Neutrophils # (Auto) 8.3 H 1.8-7.8 X 10^3 Lymphocytes # (Auto) 1.8 1.0-4.0 X 10^3 Monocytes # (Auto) 1.4 H 0.0-1.0 X 10^3 Eosinophils # (Auto) 0.2 0.0-0.3 10^3/uL Basophils # (Auto) 0.0 0.0-0.1 10^3/uL Sodium Level 136 135-145 MMOL/L Potassium Level 4.1 3.6-5.0 MMOL/L Chloride Level 100 98-107 MMOL/L Carbon Dioxide Level 25 21-32 MMOL/L Anion Gap 11 5-14 MMOL/L Blood Urea Nitrogen 26 H 7-18 MG/DL Creatinine 1.36 H 0.60-1.30 MG/DL Estimat Glomerular Filtration Rate 52 BUN/Creatinine Ratio 19 Glucose Level 199 H 70-105 MG/DL Calcium Level 9.5 8.5-10.1 MG/DL Total Bilirubin 0.9 0.1-1.0 MG/DL Aspartate Amino Transf (AST/SGOT) 20 5-34 U/L Alanine Aminotransferase (ALT/SGPT) 15 0-55 U/L Alkaline Phosphatase 38 L 40-136 U/L Total Protein 7.6 6.4-8.2 GM/DL Albumin 3.8 3.2-4.5 GM/DL (PEDRO WHITING MD) Medications Given in ED Current Medications Medications Dose Ordered Sig/Dajuan Route Start Time Stop Time Status Last Admin Dose Admin Fentanyl Citrate 50 mcg ONCE ONCE IVP 02/14/17 18:45 02/14/17 18:46 DC 02/14/17 19:10 50 MCG (PEDRO WHITING MD) Vital Signs/I&O Vital Sign - Last 12Hours 02/14/17 18:11 Temp 98.8 Pulse 72 Resp 20 B/P (MAP) 167/73 Pulse Ox 98 O2 Delivery Room Air (PEDRO WHITING MD) Blood Pressure Mean: 104 Progress Note : Progress Note Seen and evaluated with Reuben Ellis APRN. I have evaluated the patient and agree with above except as indicated. I have directed the plan of care. Patient is here with increasing redness to the left medial leg that initially started in the upper thigh but now goes from the ankle to the groin. Pain is markedly increased in size even having difficulty walking. He saw his doctor earlier this week and was started on doxycycline. Despite antibiotics, he is not improved and is in fact worsened. IV, labs, blood cultures and lactic acid as well as ultrasound of the left leg ordered. Findings consistent with cellulitis. Patient to be admitted. (PEDRO WHITING MD) Diagnostic Imaging Diagonstic Imaging: Ultrasound Comments NAME: LISA SINGH Marsha [facility] REC#: [id number] PT STATUS: REG ER : 1945 PHYSICIAN: REUBEN ELLIS APRN ADMIT DATE: 02/14/17/ER Signed Date of Exam:02/14/17 US VENOUS LOWER EXT LT PROCEDURE: US left lower extremity venous. TECHNIQUE: Multiple real-time grayscale images were obtained over the left lower extremity in various projections. Additional duplex Doppler and color Doppler images were also obtained. INDICATION: Left thigh redness and swelling. Comparison: None available.. Findings: The left common femoral, femoral and popliteal veins are patent without evidence of DVT. Visualized proximal aspects of the greater saphenous, deep femoral, posterior tibial and peroneal veins are also patent. All of the evaluated deep venous structures demonstrate normal compressibility and waveform augmentation where applicable. Impression: No left lower extremity deep venous thrombosis (DVT). Dictated by: Dictated on workstation # [id number] Dict: 02/14/171932 Trans: 02/14/171933 [facility] [id number] Interpreted by: KARINA RAYO MD Electronically signed by: KARINA RAYO MD 02/14/171933 (REUBEN ELLIS APRN) Departure Communication Time/Spoke to Admitting Phy: 19:37 Communication Discussed the case with Dr. Kim. Since the patient is diabetic and has failed outpatient doxycycline he would benefit from inpatient IV antibiotics. Surgical consult in case of need for debridement Time/Spoke to Consulting Physi: 20:13 Communication/Consulting Notify Dr. Monge of consult (REUBEN ELLIS APRN) Impression Impression: Primary Impression: Cellulitis with lymphangitis Disposition: ADMITTED INPATIENT Condition: Stable Decision to Admit Reason: Admit from ER (General) Decision to Admit/Date: Feb 14, 2017 Time/Decision to Admit Time: 20:13 (REUBEN ELLIS APRN) Departure-Patient Inst. Referrals: BEVERLY BURLESON MD (PCP/Family) Primary Care Physician REUBEN ELLIS APRN Feb 14, 2017 18:34 PEDRO WHITING MD Feb 14, 2017 19:35
[2017-02-14] MEDS ORDERED: fentaNYL INJECTION 100 MCG/2 ML AMP IVP ONE (18:45)
[2017-02-14 19:09] LABS: BASOPHILS % (AUTO) 0 % (0-10); EOSINOPHILS # (AUTO) 0.2 10^3/uL (0.0-0.3); EOSINOPHILS % (AUTO) 2 % (0-10); LYMPHOCYTES # (AUTO) 1.8 X 10^3 (1.0-4.0); LYMPHOCYTES % (AUTO) 15 % (12-44); MEAN CORPUSCULAR HEMOGLOBIN 29 PG (25-34); MEAN CORPUSCULAR HGB CONC 34 G/DL (32-36); MEAN CORPUSCULAR VOLUME 85 FL (80-99); MEAN PLATELET VOLUME 9.6 FL (7.4-10.4); MONOCYTES # (AUTO) 1.4 X 10^3 (0.0-1.0); MONOCYTES % (AUTO) 12 % (0-12); NEUTROPHILS # (AUTO) 8.3 X 10^3 (1.8-7.8); NEUTROPHILS % (AUTO) 71 % (42-75); PLATELET COUNT 250 10^3/uL (130-400); RED BLOOD COUNT 3.82 10^6/uL (4.35-5.85); RED CELL DISTRIBUTION WIDTH 13.7 % (10.0-14.5); WHITE BLOOD COUNT 11.8 10^3/uL (4.3-11.0)
[2017-02-14 19:29] LABS: ALBUMIN 3.8 GM/DL (3.2-4.5); BILIRUBIN,TOTAL 0.9 MG/DL (0.1-1.0); CALCIUM 9.5 MG/DL (8.5-10.1); CREATININE SERUM 1.36 MG/DL (0.60-1.30); POTASSIUM 4.1 MMOL/L (3.6-5.0); TOTAL PROTEIN 7.6 GM/DL (6.4-8.2)
--- NOTE | 2017-02-14 19:36 | Diagnostic Imaging Report ---
PROCEDURE: US left lower extremity venous. TECHNIQUE: Multiple real-time grayscale images were obtained over the left lower extremity in various projections. Additional duplex Doppler and color Doppler images were also obtained. INDICATION: Left thigh redness and swelling. Comparison: None available.. Findings: The left common femoral, femoral and popliteal veins are patent without evidence of DVT. Visualized proximal aspects of the greater saphenous, deep femoral, posterior tibial and peroneal veins are also patent. All of the evaluated deep venous structures demonstrate normal compressibility and waveform augmentation where applicable. Impression: No left lower extremity deep venous thrombosis (DVT). Dictated by: Dictated on workstation # [id number]
[2017-02-14] MEDS ORDERED: VANCOMYCIN INJECTION 1,000 MG in NS (IVPB) 250 ML IV ONE (19:45)
[2017-02-14] MEDS ORDERED: VANCOMYCIN INJECTION 1,250 MG in NS (IVPB) 250 ML IV SCH (19:45)
--- OUTSIDE RECORDS SUMMARY | 2017-02-14 20:34 | XMS REPORT | Continuity of Care Document ---
Author Author [facility] Organization [facility] Address Unknown Phone Unavailable Care Team Providers Care Paper Feeder Name Role Phone Thai Burleson Josy PCP [phone] Source Comments Some departments are not documenting in the electronic medical record. If you do not see the information that you expected, contact Release of Information in the Health Information Management department at [phone] for further assistance in locating additional records.[facility] Active Allergies and Adverse Reactions Allergen [...] antibiotics. Non-proliferative diabetic retinopathy, mild, right eye ([facility]) 09/03/2013 Last Assessment & Plan: - no significant DME on exam today. Discussed importance of continued glucose monitoring Vitreous hemorrhage of left eye ([facility]) 07/07/2013 Overview: Noticed as rapid loss of [...]
--- OUTSIDE RECORDS SUMMARY | 2017-02-14 20:36 | XMS REPORT | Continuity of Care Document ---
Author Author [facility] Organization [facility] Address Unknown Phone Unavailable Allergies Active Description Code Type Severity Reaction Onset Reported/Identified Relationship to Patient Clinical Status Yes Iodinated Contrast Media - IV Dye [id number] Drug Allergy Mild RASH 01/06/2007 Yes Iodinated Contrast Media - Oral and [id number] Drug Allergy Mild RASH 01/06/2007 Medications Problems [...] LESION 01/11/2011 Ot 414.01 CORONARY ATHEROSCLEROSIS OF [place] CORON 01/11/2011 Ot 585.3 CHRONIC KIDNEY DISEASE, [...] LINDER, BEVERLY Ferris Ot Y99.8 12/28/2015 NALINI HARLEY MD Ot E11.42 TYPE 2 DIABETES MELLITUS WITH DIABETIC P 12/28/2015 NALINI HARLEY MD Ot Z79.4 CUSTODIAL (CURRENT) USE OF INSULIN 12/29/2015 ODGERS MD, NALINI K Ot E11.42 TYPE 2 DIABETES MELLITUS WITH DIABETIC P 12/29/2015 CRICKET LINDER, NALINI Ibarra Ot Z79.4 HEALTH IT SPECIALIST (CURRENT) USE OF INSULIN 01/02/2016 Ot 681.10 [...] Ot M54.5 LOW BACK PAIN 04/18/2016 BEVERLY FERNNADES MD Ot W19.XXXA UNSPECIFIED FALL, INITIAL ENCOUNTER [...] MD Ot I25.10 ATHSCL HEART DISEASE OF [place] CORONARY 11/01/2016 BEVERLY FERNANDES MD Ot K59.00 [...] (T4) free measurement (mass/volume) 0.93 ng/dL 0.70-1.48 Complete blood count (CBC) with automated white blood cell (WBC) differential - 02/14/17 18:57 Blood leukocytes automated count (number/volume) 11.8 10*3/ uL 4.3-11.0 Blood erythrocytes automated count (number/volume) 3.82 10*6 /uL 4.35-5.85 Venous blood hemoglobin measurement (mass/volume) 11.0 g/dL 13.3-17.7 Blood hematocrit (volume fraction) 32 % 40-54 Automated erythrocyte mean corpuscular volume 85 [foz_us] 80-99 Automated erythrocyte mean corpuscular hemoglobin (mass per erythrocyte) 29 pg 25-34 Automated erythrocyte mean corpuscular hemoglobin concentration measurement ( mass/volume) 34 g/dL 32-36 Automated erythrocyte distribution width ratio 13.7 % 10.0-14.5 Automated blood platelet count (count/volume) 250 10*3/uL 130-400 Automated blood platelet mean volume measurement 9.6 [foz_us ] 7.4-10.4 Automated blood neutrophils/100 leukocytes 71 % 42-75 Automated blood lymphocytes/100 leukocytes 15 % 12-44 Blood monocytes/100 leukocytes 12 % 0-12 Automated blood eosinophils/100 leukocytes 2 % 0-10 Automated blood basophils/100 leukocytes 0 % 0-10 Blood neutrophils automated count (number/volume) 8.3 10*3 1.8-7.8 Blood lymphocytes automated count (number/volume) 1.8 10*3 1.0-4.0 Blood monocytes automated count (number/volume) 1.4 10*3 0.0-1.0 Automated eosinophil count 0.2 10*3/uL 0.0-0.3 Automated blood basophil count (count/volume) 0.0 10*3/uL 0.0-0.1 Comprehensive metabolic panel - 02/14/17 18:57 Serum or plasma sodium measurement (moles/volume) 136 mmol/ L 135-145 Serum or plasma potassium measurement (moles/volume) 4.1 mmol/L 3.6-5.0 Serum or plasma chloride measurement (moles/volume) 100 mmol /L 98-107 Carbon dioxide 25 mmol/L 21-32 Serum or plasma anion gap determination (moles/volume) 11 mmol/L 5-14 Serum or plasma urea nitrogen measurement (mass/volume) 26 mg/dL 7-18 Serum or plasma creatinine measurement (mass/volume) 1.36 mg /dL 0.60-1.30 Serum or plasma urea nitrogen/creatinine mass ratio 19 NRG Serum or plasma creatinine measurement with calculation of estimated glomerular filtration rate 52 NRG Serum or plasma glucose measurement (mass/volume) 199 mg/dL 70-105 Serum or plasma calcium measurement (mass/volume) 9.5 mg/dL 8.5-10.1 Serum or plasma total bilirubin measurement (mass/volume) 0.9 mg/dL 0.1-1.0 Serum or plasma alkaline phosphatase measurement (enzymatic activity/volume) 38 U/L 40-136 Serum or plasma aspartate aminotransferase measurement (enzymatic activity/ volume) 20 U/L 5-34 Serum or plasma alanine aminotransferase measurement (enzymatic activity/volume ) 15 U/L 0-55 Serum or plasma protein measurement (mass/volume) 7.6 g/dL 6.4-8.2 Serum or plasma albumin measurement (mass/volume) 3.8 g/dL 3.2-4.5 Blood lactic acid measurement (moles/volume) - 02/14/17 19:07 Blood lactic acid measurement (moles/volume) 1.42 mmol/L 0.50-2.00 Encounters ACCT No. Visit Date/Time Discharge Status Pt. Type Provider Facility Loc./Unit Complaint [id number] 01/15/2017 11:21:00 2016 13:45:00 DIS Outpatient BEVERLY FERNANDES MD [facility] REHAB CERVICALGIA WITH MUSCLE SPASM POST FALL [id number] 02/15/2016 11:16:00 2015 14:50:00 DIS [facility] W PERIPHERAL NEUROPATHY;DECONDIT [id number] 12/28/2015 15:08:00 2015 17:41:00 DIS Emergency NALINI HARLEY MD [facility] ER WEAKNESS,LOSS OF CONTROL IN LEGS [id number] 03/24/2014 18:29:00 2013 23:59:59 CLS Outpatient OTHER, UNLISTED [facility] HEALTH IT SPECIALIST MED USE, [id number] 03/15/2014 16:50:00 2013 23:59:59 CLS Outpatient BOZENA BORRERO MD [facility] CUSTODIAL MED USE OF ANTIBIOTICS [id number] 03/14/2014 20:30:00 2013 23:59:59 CLS Outpatient OTHER, UNLISTED [facility] HEALTH IT SPECIALIST USE OF ANTIBIOTICS [id number] 03/02/2014 10:53:00 2013 23:59:59 CLS Outpatient BEVERLY FERNANDES MD [facility] RAD DIABETES R FOOT INFECTION [id number] 05/14/2013 10:52:00 2012 23:59:59 CLS Outpatient MARTHA DAHL DO [facility] CARD AFIB [id number] 05/11/2013 05:27:00 2012 07:55:00 DIS Emergency MARTHA DAHL DO [facility] ER FALL/BACK PAIN LOW BLOOD SUGAR [id number] 02/14/2017 19:13:00 Document Registration [id number] 11/21/2016 15:08:00 ACT Outpatient BEVERLY FERNANDES MD [facility] RAD NECK PAIN [id number] 10/10/2016 14:57:00 ACT Outpatient BEVERLY FERNANDES MD [facility] LAB FATIGUE [id number] 04/18/2016 08:44:00 ACT Outpatient BEVERLY FERNANDES MD [facility] RAD BILATERAL UPPER AND LOWER WEAKNESS AND LUMBAR BACK [id number] 08/04/2015 10:59:00 ACT Outpatient BEVERLY FERNANDES MD [facility] RAD FALL WITH BACK PAIN [id number] 05/24/2011 13:49:00 Document Registration [id number] 05/13/2011 11:15:00 Document Registration [id number] 04/11/2011 11:45:00 Document Registration [id number] 01/02/2011 18:18:00 Document Registration [id number] 12/27/2010 06:39:00 Document Registration [id number] 12/24/2010 20:47:00 Document Registration [id number] 03/01/2010 14:39:00 Document Registration
[2017-02-14 21:11] VITALS: BP 164/70
[2017-02-14] MEDS ORDERED: NS IV 1000 ML 1,000 ML ONE (21:23)
[2017-02-14] MEDS ORDERED: PIPERACILLIN/TAZOBACTAM 4.5 GM/NS100 ML IVPB IV ONE ×2 (21:45)
[2017-02-14] MEDS ORDERED: HYDROcodone/APAP 5 MG/325 MG (LORTAB) TAB PO PRN (21:45)
[2017-02-14] MEDS: NS IV 1000 ML 1,000 ML IV SCH (21:51)
[2017-02-14 23:25] VITALS: BP 106/53
[2017-02-15 03:45] VITALS: BP 129/69
[2017-02-15] MEDS: PIPERACILLIN/TAZOBACTAM 4.5 GM/NS100 ML IVPB IV SCH ×6 (03:48→20:44)
[2017-02-15] MEDS: NS IV 1000 ML 1,000 ML IV SCH (06:58)
[2017-02-15 07:58] VITALS: BP 134/61
[2017-02-15] MEDS: VANCOMYCIN 1 GM/NS 250 ML IVPB IV SCH ×4 (08:06→19:41)
[2017-02-15] MEDS: inSUlin ASPART (NovoLOG) 1 UNIT/0.01 ML (CHARGE PER UNIT) SC SCH ×2 (08:40→16:57)
[2017-02-15] MEDS ORDERED: AMIO200T2 PO (09:31)
[2017-02-15] MEDS ORDERED: ATOR10TA66 PO (09:31)
[2017-02-15] MEDS ORDERED: CETI10TA23 PO (09:31)
[2017-02-15] MEDS ORDERED: ISOS30TA3 PO (09:31)
[2017-02-15] MEDS ORDERED: POTA10CA43 PO (09:31)
[2017-02-15] MEDS ORDERED: CLOP75TA28 PO (09:31)
[2017-02-15] MEDS ORDERED: BUME1TAB4 PO (09:31)
[2017-02-15] MEDS ORDERED: RAMI10CA PO (09:31)
--- NOTE | 2017-02-15 11:32 | Consultation ---
History of Present Illness History of Present Illness Patient Consulted On(nathaly/time) 02/15/17 11:26 Time Seen by Provider: 11:01 History of Present Illness Surgery asked to consult regarding Left leg cellulitis HPI: Pt presented to ER with left leg pain, yesterday. He stated this began at the beginning of this week; Friday. He called his regular physician Dr. Burleson who treated him with antibiotics. Patient denies improvement. He is a diabetic. Denies fevers or chills. In the ER he had redness to the medial aspect of the entire left leg from the ankle all the way up to the groin. 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 Severity: moderate, rating it as 3 out of 10 when still, but 7 out of 10 when walking Pain/Injury Location: left leg Modifying Factors: Worse With Movement When seen now pt thinks it has gotten better, pain is minimal. Allergies and Home Medications Allergies Coded Allergies: Iodinated Contrast- Oral and IV Dye (Unverified Allergy, Mild, RASH, ) Home Medications Amiodarone HCl 200 Mg Tablet, 200 MG PO HS, (Reported) Atorvastatin Calcium 10 Mg Tablet, 10 MG PO HS, (Reported) Bumetanide 1 Mg Tablet, 1 MG PO HS, (Reported) Cetirizine HCl 10 Mg Tab.chew, 10 MG PO HS, (Reported) Clopidogrel Bisulfate 75 Mg Tablet, 75 MG PO HS, (Reported) Insulin Determir 100 Unit/1 Ml Insuln.pen, UNITS SQ HS, (Reported) PT USES A SLIDING SCALE WHEN GIVING HIMSELF LEVEMIR AT HS HE WILL TAKE ANYWHERE FROM 15 TO 35 UNITS DEPENDING ON GLUCOSE LEVEL - HE ALSO ADDS APPROX. 10 UNITS OF HUMALOG AT HS DEPENDING ON GLUCOSE LEVEL) Insulin Lispro 100 Unit/1 Ml Cartridge, UNITS, (Reported) TAKES 5-6 UNITS BEFORE MEAL AND APPROX. 10 UNITS AT HS DEPENDING ON GLUCOSE LEVEL. Isosorbide Mononitrate 30 Mg Tab.er.24h, 30 MG PO HS, (Reported) Potassium Chloride 10 Meq Capsule.er, 10 MEQ PO HS, (Reported) Ramipril 10 Mg Capsule, 10 MG PO HS, (Reported) Past Dabnrul-Mwjerr-Gafqwr Hx Patient Social History Alcohol Use: Denies Use Recreational Drug Use: No Smoking Status: Never a Smoker 2nd Hand Smoke Exposure: No Recent Foreign Travel: No Contact w/Someone Who Travel: No Recent Infectious Disease Expo: No Recent Hopitalizations: No Physical Abuse Screen: No Sexual Abuse: No Immunizations Up To Date Tetanus Booster (TDap): Less than 5yrs Seasonal Allergies Seasonal Allergies: No Surgeries HX Surgeries: Yes (eye surg, ear surg,) Surgeries: CABG Respiratory Hx Respiratory Disorders: No Cardiovascular Hx Cardiac Disorders: Yes Cardiac Disorders: Coronary Artery Disease Neurological Hx Neurological Disorders: Yes Neurological Disorders: Neuropathy Genitourinary Hx Genitourinary Disorders: Yes (ED--S/P IMPLANT) Gastrointestinal Hx Gastrointestinal Disorders: Yes Gastrointestinal Disorders: Chronic Constipation, Gall Bladder Disease Musculoskeletal Hx Musculoskeletal Disorders: No Endocrine Hx Endocrine Disorders: Yes Endocrine Disorders: Diabetes, Insulin dep HEENT HX ENT Disorders: Yes (BENIGN TUMOR RIGHT EAR--S/P REMOVAL) HEENT Disorders: Cataract Hearing Impairment: Hard of Hearing Cancer Hx Cancer: No Psychosocial Hx Psychiatric Problems: No Integumentary HX Skin/Integumentary Disorder: No Skin/Integumentary Disorders: Recent Skin Changes Blood Transfusions Hx Blood Disorders: No Family Medical History Significant Family History: Diabetes, Stroke (son) Family Medial History: Diabetes mellitus 19 MOTHER G8 SISTER FH: breast cancer 19 MOTHER FH: emphysema 19 FATHER FH: prostate cancer 19 FATHER FH: stroke son Myocardial infarction son Review of Systems-General Constitutional: No chills, No diaphoresis, No dizziness EENTM: No blurred vision, No epistaxis, No mouth swelling, No throat swelling Respiratory: No cough, No dyspnea on exertion Cardiovascular: No chest pain, No edema, Hx of Intervention Gastrointestinal: No abdominal pain, No jaundice Musculoskeletal: joint swelling, muscle stiffness Skin: change in color, No hx of skin cancer, other Psychiatric/Neurological: Denies Anxiety, Denies Depressed Physical Exam-General Problems Physical Exam Vital Signs Vital Sign - Last 12Hours 02/14/17 18:11 Temp 98.8 Pulse 72 Resp 20 B/P (MAP) 167/73 Pulse Ox 98 O2 Delivery Room Air Capillary Refill : Less Than 3 Seconds General Appearance: WD/WN, no apparent distress Eyes: Bilateral Eye EOMI, Bilateral Eye PERRL HEENT: pharynx normal, No scleral icterus (R), No scleral icterus (L), No tonsillar exudate Neck: non-tender, full range of motion, supple, normal inspection Respiratory: chest non-tender, lungs clear, normal breath sounds, no respiratory distress, no accessory muscle use Cardiovascular: regular rate, rhythm, no edema, no murmur Gastrointestinal: normal bowel sounds, non tender, soft, no organomegaly, no pulsatile mass Extremities: normal range of motion, no calf tenderness, normal capillary refill, other (there are lines drawn on his leg; he thinks were drawn at demarcation of redness, now the erythema is an inch inside those lines. 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, no motor/sensory deficits, alert, normal mood/affect, oriented x 3 Skin: other (venous stasis changes) Lymphatic: no adenopathy (neck, axilla or groin) Data Review Labs Laboratory Tests 02/14/17 18:57: White Blood Count 11.8H, Red Blood Count 3.82L, Hemoglobin 11.0L, Hematocrit 32L , Mean Corpuscular Volume 85, Mean Corpuscular Hemoglobin 29, Mean Corpuscular Hemoglobin Concent 34, Red Cell Distribution Width 13.7, Platelet Count 250, Mean Platelet Volume 9.6, Neutrophils (%) (Auto) 71, Lymphocytes (%) (Auto) 15, Monocytes (%) (Auto) 12, Eosinophils (%) (Auto) 2, Basophils (%) (Auto) 0, Neutrophils # (Auto) 8.3H, Lymphocytes # (Auto) 1.8, Monocytes # (Auto) 1.4H, Eosinophils # (Auto) 0.2, Basophils # (Auto) 0.0, Sodium Level 136, Potassium Level 4.1, Chloride Level 100, Carbon Dioxide Level 25, Anion Gap 11, Blood Urea Nitrogen 26H, Creatinine 1.36H, Estimat Glomerular Filtration Rate 52, BUN/ Creatinine Ratio 19, Glucose Level 199H, Calcium Level 9.5, Total Bilirubin 0.9 , Aspartate Amino Transf (AST/SGOT) 20, Alanine Aminotransferase (ALT/SGPT) 15, Alkaline Phosphatase 38L, Total Protein 7.6, Albumin 3.8 02/14/17 19:07: Lactic Acid Level 1.42 02/15/17 07:25: Glucometer 336H Assessment/Plan Assessment/Plan Assessment/Plan Superficial Thrombophlebitis upper left leg Venous Stasis Changes vs. superficial cellulitis around ankle CAD DM Plan is to have pt start taking NSAIDS to decrease the inflammation. Continue the IV ABX. Ice off and on site for pain and to help with inflammation. US venous doppler did not show any abscess, no comment was made about edema in the area. Pt ok to ambulate. Max medical management for CAD and DM. No need for surgical intervention at this time. Will follow along, probably can be d/c'd tomorrow. Thank you for this consult. Clinical Quality Measures DVT/VTE Risk/Contraindication: Risk Factor Score Per Nursin RFS Level Per Nursing on Admit: 4+=Very High EMMY GRIGSBY DO Feb 15, 2017 11:32
[2017-02-15 12:00] VITALS: BP 133/68
--- NOTE | 2017-02-15 12:55 | History & Physical-Hospitalist ---
HPI History of Present Illness: HPI/Chief Complaint CC: Cellulitis of the left leg previous saphenous vein harvest remotely HPI: This is a 71-year-old white male clinic patient of Dr. Burleson that has a past medical history of bypass history previous left leg saphenous vein harvest the presented to the emergency room after he failed doxycycline antibiotic therapy for left leg cellulitis. He reports that it worsened ER evaluated the patient to have an elevated white count and fever and he was subsequently admitted placed on empiric IV antibiotics and close monitoring. At this current time the outline of the cellulitis is much improved progression and he reports feeling much better and was to call home as soon as possible because his grandkids are coming to visit tomorrow from [facility]. Source: patient Exam Limitations: no limitations Date Seen 02/15/17 Time Seen by Provider: 11:30 Attending Physician Damaris Kim DO PCP Thai Burleson MD Referring Physician Date of Admission Feb 14, 2017 at 20:30 Home Medications & Allergies Home Medications Reviewed patient Home Medication Reconciliation Form Allergies Allergies Coded Allergies Iodinated Contrast- Oral and IV Dye (Unverified Allergy, Mild, RASH, 01/06/07) Past Hrimvhm-Eorloh-Kuawbp Hx Patient Social History Marrital Status: Employed/Student: retired Alcohol Use: Denies Use Recreational Drug Use: No Smoking Status: Never a Smoker 2nd Hand Smoke Exposure: No Physical Abuse Screen: No Sexual Abuse: No Recent Foreign Travel: No Contact w/other who traveled: No Recent Hopitalizations: No Recent Infectious Disease Expo: No Immunizations Up To Date Tetanus Booster (TDap): Less than 5yrs Seasonal Allergies Seasonal Allergies: No Surgeries HX Surgeries: Yes (eye surg, ear surg,) Surgeries: CABG Respiratory Hx Respiratory Disorders: No Cardiovascular Hx Cardiovascular Disorders: Yes Cardiac Disorders: Coronary Artery Disease, Hypertension Neurological Hx Neurological Disorders: Yes Neurological Disorders: Neuropathy Genitourinary Hx Genitourinary Disorders: Yes (ED--S/P IMPLANT) Gastrointestinal Hx Gastrointestinal Disorders: Yes Gastrointestinal Disorders: Chronic Constipation, Gall Bladder Disease Musculoskeletal Hx Musculoskeletal Disorders: No Endocrine Hx Endocrine Disorders: Yes Endocrine Disorders: Diabetes, Insulin dep HEENT HX ENT Disorders: Yes (BENIGN TUMOR RIGHT EAR--S/P REMOVAL) HEENT Disorders: Cataract Hearing Impairment: Hard of Hearing Cancer Hx Cancer: No Psychosocial Hx Psychiatric Problems: No Integumentary HX Skin/Integumentary Disorder: No Skin/Integumentary Disorders: Recent Skin Changes Blood Transfusions Hx Blood Disorders: No Family Medical History Significant Family History: Diabetes, Stroke (son) Family Hx: Diabetes mellitus 19 MOTHER G8 SISTER FH: breast cancer 19 MOTHER FH: emphysema 19 FATHER FH: prostate cancer 19 FATHER FH: stroke son Myocardial infarction son Review of Systems Constitutional: see HPI, fever, malaise, weakness EENTM: no symptoms reported Respiratory: no symptoms reported Cardiovascular: no symptoms reported Gastrointestinal: no symptoms reported Genitourinary: no symptoms reported Musculoskeletal: muscle pain (left leg) Skin: see HPI Psychiatric/Neurological: No Symptoms Reported All Other Systems Reviewed Negative Unless Noted: Yes Physical Exam Physical Exam Vital Signs Vital Sign - Last 12Hours 02/14/17 18:11 Temp 98.8 Pulse 72 Resp 20 B/P (MAP) 167/73 Pulse Ox 98 O2 Delivery Room Air Capillary Refill : Less Than 3 Seconds General Appearance: No Apparent Distress, WD/WN, Chronically ill Eyes: Bilateral Eye Normal Inspection, Bilateral Eye PERRL HEENT: PERRL/EOMI, Normal ENT Inspection, Pharynx Normal Neck: Full Range of Motion, Normal Inspection, Non Tender, Supple, Carotid Bruit Respiratory: Chest Non Tender, Lungs Clear, Normal Breath Sounds, No Accessory Muscle Use, No Respiratory Distress Cardiovascular: Regular Rate, Rhythm, No Edema, No Gallop, No JVD, No Murmur, Normal Peripheral Pulses Gastrointestinal: Normal Bowel Sounds, No Organomegaly, No Pulsatile Mass, Non Tender, Soft Back: Normal Inspection, No CVA Tenderness, No Vertebral Tenderness Extremity: Normal Capillary Refill, Normal Inspection, Normal Range of Motion, Non Tender, No Calf Tenderness, No Pedal Edema Neurologic/Psychiatric: Alert, Oriented x3, No Motor/Sensory Deficits, Normal Mood/Affect Skin: Normal Color, Warm/Dry, Other (left leg cellulitis upper thigh and lower leg) Lymphatic: No Adenopathy Results Results/Procedures Lab Laboratory Tests 02/14/17 18:57 Assessment/Plan Admission Diagnosis Assessment: Left leg cellulitis location of previous saphenous vein graft remotely Coronary artery disease previous bypass Hypertension hyperlipidemia Assessment and Plan Plan: Empiric antibiotics Ibuprofen I appreciate general surgery consultation Monitor closely Clinical Quality Measures DVT/VTE Risk/Contraindication: Risk Factor Score Per Nursin RFS Level Per Nursing on Admit: 4+=Very High KIM,DAMARIS DO Feb 15, 2017 12:55
[2017-02-15] MEDS: IBUPROFEN 600 MG (MOTRIN) TAB PO SCH ×2 (12:59→20:53)
[2017-02-15 15:35] VITALS: BP 116/55
[2017-02-15 19:48] VITALS: BP 132/61
[2017-02-15] MEDS ORDERED: inSUlin DETERMIR 1 UNIT/0.01 ML (LEVEMIR) CHARGE PER UNIT SQ SCH (21:00)
[2017-02-15] MEDS ORDERED: BUMETANIDE 1 MG (BUMEX) TAB PO SCH (21:00)
[2017-02-15] MEDS ORDERED: AMIODARONE 200 MG (CORDARONE) TAB PO SCH (21:00)
[2017-02-15] MEDS ORDERED: RAMIPRIL 5 MG (ALTACE) CAP PO SCH (21:00)
[2017-02-15] MEDS ORDERED: CLOPIDOGREL 75 MG (PLAVIX) TABLET PO SCH (21:00)
[2017-02-15] MEDS ORDERED: KCL 10 MEQ TAB (MICRO K) PO SCH (21:00)
[2017-02-15] MEDS ORDERED: ISOSORBIDE MONONITRATE 30 MG (IMDUR) TAB PO SCH (21:00)
[2017-02-15] MEDS ORDERED: ATORVASTATIN 10 MG (LIPITOR) TABLET PO SCH (21:00)
[2017-02-15] MEDS ORDERED: LORATADINE (CLARITIN) 10 MG TAB PO SCH (21:00)
[2017-02-16 00:15] VITALS: BP 109/56
[2017-02-16] MEDS: PIPERACILLIN/TAZOBACTAM 4.5 GM/NS100 ML IVPB IV SCH ×2 (03:40)
[2017-02-16] MEDS: IBUPROFEN 600 MG (MOTRIN) TAB PO SCH (03:41)
[2017-02-16 03:56] VITALS: BP 99/50
[2017-02-16] MEDS ORDERED: TROUGH ORDER-PHARMACY XX NR (07:00)
[2017-02-16 07:06] LABS: BASOPHILS # (AUTO) 0.1 10^3/uL (0.0-0.1); BASOPHILS % (AUTO) 1 % (0-10); EOSINOPHILS # (AUTO) 0.3 10^3/uL (0.0-0.3); EOSINOPHILS % (AUTO) 5 % (0-10); LYMPHOCYTES # (AUTO) 1.4 X 10^3 (1.0-4.0); LYMPHOCYTES % (AUTO) 21 % (12-44); MEAN CORPUSCULAR HEMOGLOBIN 28 PG (25-34); MEAN CORPUSCULAR HGB CONC 33 G/DL (32-36); MEAN CORPUSCULAR VOLUME 86 FL (80-99); MEAN PLATELET VOLUME 9.6 FL (7.4-10.4); MONOCYTES # (AUTO) 0.7 X 10^3 (0.0-1.0); MONOCYTES % (AUTO) 11 % (0-12); NEUTROPHILS # (AUTO) 4.2 X 10^3 (1.8-7.8); NEUTROPHILS % (AUTO) 63 % (42-75); PLATELET COUNT 225 10^3/uL (130-400); RED BLOOD COUNT 3.14 10^6/uL (4.35-5.85); RED CELL DISTRIBUTION WIDTH 13.7 % (10.0-14.5); WHITE BLOOD COUNT 6.7 10^3/uL (4.3-11.0)
[2017-02-16 07:26] VITALS: BP 92/44
[2017-02-16 07:28] LABS: ALBUMIN 2.8 GM/DL (3.2-4.5); BILIRUBIN,TOTAL 0.4 MG/DL (0.1-1.0); CALCIUM 8.5 MG/DL (8.5-10.1); CREATININE SERUM 1.42 MG/DL (0.60-1.30); TOTAL PROTEIN 5.8 GM/DL (6.4-8.2)
[2017-02-16] MEDS: VANCOMYCIN 1 GM/NS 250 ML IVPB IV SCH ×2 (08:17)
[2017-02-16] MEDS: inSUlin ASPART (NovoLOG) 1 UNIT/0.01 ML (CHARGE PER UNIT) SC SCH (09:51)
--- NOTE | 2017-02-16 11:38 | Progress Note ---
Subjective Time Seen by Provider: 10:12 Subjective/Events-last exam Pt seen and examined, states he is doing better today. Almost no pain. Tolerating diet. Wants to know if he can walk around and go to [place] with his grandkids. Review of Systems General: No Chills, No Night Sweats Pulmonary: No Cough Cardiovascular: No: Chest Pain Gastrointestinal: No: Abdominal Pain, Nausea, Vomiting Objective Exam Vital Signs Date Time Temp Pulse Resp B/P (MAP) Pulse Ox O2 Delivery O2 Flow Rate FiO2 02/16/17 07:26 97.5 53 20 92/44 98 Room Air 02/16/17 03:56 97.3 65 20 99/50 98 Room Air 02/16/17 00:15 97.8 59 20 109/56 94 Room Air 02/15/17 19:48 99.6 65 18 132/61 95 Room Air 02/15/17 15:35 97.4 59 20 116/55 96 Room Air 02/15/17 12:00 99.0 63 20 133/68 99 Room Air I & O 02/16/17 07:00 Intake Total 2840 ml Output Total 1175 ml Balance 1665 ml Capillary Refill : Less Than 3 Seconds General Appearance: No Apparent Distress, WD/WN, Chronically ill HEENT: PERRL/EOMI, Pharynx Normal Respiratory: Chest Non Tender, Lungs Clear, Normal Breath Sounds, No Accessory Muscle Use, No Respiratory Distress Cardiovascular: Regular Rate, Rhythm, No Edema, No Murmur, Normal Peripheral Pulses Gastrointestinal: non tender, soft, no organomegaly Extremity: Normal Capillary Refill, Non Tender, No Calf Tenderness, Inflammation (around ankle with mild swelling) Neurologic/Psychiatric: Alert, Oriented x3, No Motor/Sensory Deficits, Normal Mood/Affect Skin: Warm/Dry, Other (left leg cellulitis upper thigh and lower leg, improved compared to yesterday. Erythema almost gone) Results Lab Laboratory Tests 02/15/17 15:36: Glucometer 99 02/15/17 20:40: Glucometer 126H 02/16/17 03:57: Glucometer 194H 02/16/17 06:32: Glucometer 158H 02/16/17 07:00: White Blood Count 6.7, Red Blood Count 3.14L, Hemoglobin 8.9L, Hematocrit 27L, Mean Corpuscular Volume 86, Mean Corpuscular Hemoglobin 28, Mean Corpuscular Hemoglobin Concent 33, Red Cell Distribution Width 13.7, Platelet Count 225, Mean Platelet Volume 9.6, Neutrophils (%) (Auto) 63, Lymphocytes (%) (Auto) 21, Monocytes (%) (Auto) 11, Eosinophils (%) (Auto) 5, Basophils (%) (Auto) 1, Neutrophils # (Auto) 4.2, Lymphocytes # (Auto) 1.4, Monocytes # (Auto) 0.7, Eosinophils # (Auto) 0.3, Basophils # (Auto) 0.1, Sodium Level 142, Potassium Level 4.0, Chloride Level 109H, Carbon Dioxide Level 26, Anion Gap 7, Blood Urea Nitrogen 22H, Creatinine 1.42H, Estimat Glomerular Filtration Rate 49, BUN/ Creatinine Ratio 15, Glucose Level 154H, Calcium Level 8.5, Total Bilirubin 0.4 , Aspartate Amino Transf (AST/SGOT) 21, Alanine Aminotransferase (ALT/SGPT) 16, Alkaline Phosphatase 43, Total Protein 5.8L, Albumin 2.8L, Vancomycin Level Trough 17.7 Microbiology 02/14/17 Blood Culture - Preliminary, Resulted No growth Assessment/Plan Assessment/Plan Assessment/Plan Superficial Thrombophlebitis upper left leg - improved Venous Stasis Changes vs. superficial cellulitis around ankle- improved CAD DM Patient told to continue taking NSAIDS to decrease the inflammation; for next 3- 4 days. Will be sent home on PO ABX. Ice off and on site for pain and to help with inflammation. Pt ok to ambulate and go to [facility]. Clinical Quality Measures DVT/VTE Risk/Contraindication: Risk Factor Score Per Nursin RFS Level Per Nursing on Admit: 4+=Very High EMMY GRIGSBY DO Feb 16, 2017 11:38
[2017-02-16] MEDS ORDERED: HYDR-3812 PO (11:39)
[2017-02-16] MEDS ORDERED: AMOX-358 PO (11:39)
[2017-02-16] MEDS ORDERED: IBUP-1773 PO (11:39)
--- NOTE | 2017-02-16 11:41 | Discharge Summary-Hospitalist ---
Diagnosis/Chief Complaint Date of Admission Feb 14, 2017 at 20:30 Date of Discharge Discharge Date: Feb 16, 2017 Admission Diagnosis Assessment: Left leg cellulitis location of previous saphenous vein graft remotely Coronary artery disease previous bypass Hypertension hyperlipidemia Discharge Diagnosis Assessment: Left leg cellulitis location of previous saphenous vein graft remotely Coronary artery disease previous bypass Hypertension hyperlipidemia Plan: Empiric antibiotics Ibuprofen I appreciate general surgery consultation Monitor closely Reason Hospital Visit/Course CC: Cellulitis of the left leg previous saphenous vein harvest remotely HPI: This is a 71-year-old white male clinic patient of Dr. Burleson that has a past medical history of bypass history previous left leg saphenous vein harvest the presented to the emergency room after he failed doxycycline antibiotic therapy for left leg cellulitis. He reports that it worsened ER evaluated the patient to have an elevated white count and fever and he was subsequently admitted placed on empiric IV antibiotics and close monitoring. At this current time the outline of the cellulitis is much improved progression and he reports feeling much better and was to call home as soon as possible because his grandkids are coming to visit tomorrow from [facility]. Note from 02/16/17: Patient doing very well and overall ready to go home. Dr Monge agrees with DC since the left leg looks so much better AFVSS, Pleasant, O x 3, at bedside RRR, CTAB Left leg inner thigh only subtle pinkness and no ttp DC home Discharge Summary Discharge Physical Examination Allergies: Coded Allergies: Iodinated Contrast- Oral and IV Dye (Unverified Allergy, Mild, RASH, ) Vitals & I&Os Vital Signs Date Time Temp Pulse Resp B/P (MAP) Pulse Ox O2 Delivery O2 Flow Rate FiO2 02/16/17 07:26 97.5 53 20 92/44 98 Room Air Hospital Course Labs (last 24 hrs) Laboratory Tests 02/15/17 15:36: Glucometer 99 02/15/17 20:40: Glucometer 126H 02/16/17 03:57: Glucometer 194H 02/16/17 06:32: Glucometer 158H 02/16/17 07:00: White Blood Count 6.7, Red Blood Count 3.14L, Hemoglobin 8.9L, Hematocrit 27L, Mean Corpuscular Volume 86, Mean Corpuscular Hemoglobin 28, Mean Corpuscular Hemoglobin Concent 33, Red Cell Distribution Width 13.7, Platelet Count 225, Mean Platelet Volume 9.6, Neutrophils (%) (Auto) 63, Lymphocytes (%) (Auto) 21, Monocytes (%) (Auto) 11, Eosinophils (%) (Auto) 5, Basophils (%) (Auto) 1, Neutrophils # (Auto) 4.2, Lymphocytes # (Auto) 1.4, Monocytes # (Auto) 0.7, Eosinophils # (Auto) 0.3, Basophils # (Auto) 0.1, Sodium Level 142, Potassium Level 4.0, Chloride Level 109H, Carbon Dioxide Level 26, Anion Gap 7, Blood Urea Nitrogen 22H, Creatinine 1.42H, Estimat Glomerular Filtration Rate 49, BUN/ Creatinine Ratio 15, Glucose Level 154H, Calcium Level 8.5, Total Bilirubin 0.4 , Aspartate Amino Transf (AST/SGOT) 21, Alanine Aminotransferase (ALT/SGPT) 16, Alkaline Phosphatase 43, Total Protein 5.8L, Albumin 2.8L, Vancomycin Level Trough 17.7 Microbiology 02/14/17 Blood Culture - Preliminary, Resulted No growth Pending Labs Laboratory Tests 02/16/17 03:57: Glucometer 194 02/16/17 06:32: Glucometer 158 02/16/17 07:00: White Blood Count 6.7, Red Blood Count 3.14, Hemoglobin 8.9, Hematocrit 27, Mean Corpuscular Volume 86, Mean Corpuscular Hemoglobin 28, Mean Corpuscular Hemoglobin Concent 33, Red Cell Distribution Width 13.7, Platelet Count 225, Mean Platelet Volume 9.6, Neutrophils (%) (Auto) 63, Lymphocytes (%) (Auto) 21, Monocytes (%) (Auto) 11, Eosinophils (%) (Auto) 5, Basophils (%) (Auto) 1, Neutrophils # (Auto) 4.2, Lymphocytes # (Auto) 1.4, Monocytes # (Auto) 0.7, Eosinophils # (Auto) 0.3, Basophils # (Auto) 0.1, Sodium Level 142, Potassium Level 4.0, Chloride Level 109, Carbon Dioxide Level 26, Anion Gap 7, Blood Urea Nitrogen 22, Creatinine 1.42, Estimat Glomerular Filtration Rate 49, BUN/ Creatinine Ratio 15, Glucose Level 154, Calcium Level 8.5, Total Bilirubin 0.4, Aspartate Amino Transf (AST/SGOT) 21, Alanine Aminotransferase (ALT/SGPT) 16, Alkaline Phosphatase 43, Total Protein 5.8, Albumin 2.8, Vancomycin Level Trough 17.7 Discharge Home Medications: Active Scripts Active Augmentin 875-125 Tablet (Amoxicillin/Potassium Clav) 1 Each Tablet 1 Each PO BID Hydrocodon -Acetaminophen 5-325 (Hydrocodone/Acetaminophen) 1 Each Tablet 1 Tab PO Q6H PRN Ibuprofen 600 Mg Tablet 600 Mg PO Q8H Reported Cetirizine HCl 10 Mg Tab.chew 10 Mg PO HS Bumetanide 1 Mg Tablet 1 Mg PO HS Potassium Chloride 10 Meq Capsule.er 10 Meq PO HS Clopidogrel (Clopidogrel Bisulfate) 75 Mg Tablet 75 Mg PO HS Ramipril 10 Mg Capsule 10 Mg PO HS Isosorbide Mononitrate ER (Isosorbide Mononitrate) 30 Mg Tab.er.24h 30 Mg PO HS Atorvastatin Calcium 10 Mg Tablet 10 Mg PO HS Amiodarone HCl 200 Mg Tablet 200 Mg PO HS Levemir (Insulin Determir) 100 Unit/1 Ml Insuln.pen Units SQ HS PT USES A SLIDING SCALE WHEN GIVING HIMSELF LEVEMIR AT HS HE WILL TAKE ANYWHERE FROM 15 TO 35 UNITS DEPENDING ON GLUCOSE LEVEL - HE ALSO ADDS APPROX. 10 UNITS OF HUMALOG AT HS DEPENDING ON GLUCOSE LEVEL) Humalog (Insulin Lispro) 100 Unit/1 Ml Cartridge Units TAKES 5-6 UNITS BEFORE MEAL AND APPROX. 10 UNITS AT HS DEPENDING ON GLUCOSE LEVEL. Instructions to patient/family Please see electonic discharge instructions given to patient. Clinical Quality Measures DVT/VTE Risk/Contraindication: Risk Factor Score Per Nursin RFS Level Per Nursing on Admit: 4+=Very High ANDRÉS WRIGHT DO Feb 16, 2017 11:41
[2017-02-16 12:49] VITALS: BP 111/55
== END 2017-02-16 12:15 | disposition home or self-care (01) | DRG 603 ==
LOC: EDUNIT# 17:57 → ER 17:59 → 4TH 20:30
PROVIDERS: ADMIT Internal Medicine; ATTEND Internal Medicine
DX: L03.116 Cellulitis of left lower limb (principal); I80.02 Phlebitis and thrombophlebitis of superficial vessels of left lower extremity; I87.8 Other specified disorders of veins; E11.40 Type 2 diabetes mellitus with diabetic neuropathy, unspecified; I25.10 Atherosclerotic heart disease of native coronary artery without angina pectoris; I10 Essential (primary) hypertension; Z98.890 Other specified postprocedural states; Z95.1 Presence of aortocoronary bypass graft; Z79.4 Long term (current) use of insulin
CPT/HCPCS: 36415; 80053; 80202; 82962; 83605; 85025; 87040; 96365; 96375

== ENCOUNTER → 2017-02-19 | Outpatient (CLI) | payer MEDICARE, OTHER ==
[~2017-02-19] MED LIST changes: +AMIO200T2 PO; +AMOX-358 PO; +ATOR10TA66 PO; +BUME1TAB4 PO; +CETI10TA23 PO; +CLOP75TA28 PO; +DOXY100T2 PO; +HYDR-3812 PO; +IBUP-1773 PO; +ISOS30TA3 PO; +POTA10CA43 PO; +RAMI10CA PO
== END ==
LOC: PREOP 05:37
PROVIDERS: ATTEND Internal Medicine
DX: Z01.818 Encounter for other preprocedural examination (principal); R19.7 Diarrhea, unspecified; K62.5 Hemorrhage of anus and rectum

== ENCOUNTER 2017-02-26 10:30 | Outpatient (CLI) | payer MEDICARE, OTHER ==
[~2017-02-26] VITALS: Ht 190.5 cm; Wt 78.0 kg
[~2017-02-26 10:30] MED LIST changes: -DOXY100T2 PO
[2017-02-27] MEDS ORDERED: DOXY100T2 PO (09:34)
== END 2017-02-26 16:00 ==
LOC: PREOP 10:30
PROVIDERS: ATTEND Internal Medicine
DX: Z01.818 Encounter for other preprocedural examination (principal); R19.7 Diarrhea, unspecified; K62.5 Hemorrhage of anus and rectum

== ENCOUNTER 2017-02-28 08:19 | Day surgery (SDC) | payer MEDICARE, OTHER ==
[~2017-02-28] VITALS: Ht 190.5 cm; Wt 78.0 kg
[~2017-02-28 08:19] MED LIST changes: +DOXY100T2 PO
--- OUTSIDE RECORDS SUMMARY | 2017-02-28 08:24 | XMS REPORT | Continuity of Care Document ---
Author Author [facility] Organization [facility] Address Unknown Phone Unavailable Care Team Providers Care Conventions Reservationist Name Role Phone Thai Burleson Josy PCP [phone] Source Comments Some departments are not documenting in the electronic medical record. If you do not see the information that you expected, contact Release of Information in the Health Information Management department at [phone] for further assistance in locating additional records.[facility] Active Allergies and Adverse Reactions Allergen [...] antibiotics. Non-proliferative diabetic retinopathy, mild, right eye ([facility]) 09/03/2013 Last Assessment & Plan: - no significant DME on exam today. Discussed importance of continued glucose monitoring Vitreous hemorrhage of left eye ([facility]) 07/07/2013 Overview: Noticed as rapid loss of [...]
--- OUTSIDE RECORDS SUMMARY | 2017-02-28 08:26 | XMS REPORT | Continuity of Care Document ---
Author Author [facility] Organization [facility] Address Unknown Phone Unavailable Allergies Active Description Code Type Severity Reaction Onset Reported/Identified Relationship to Patient Clinical Status Yes Iodinated Contrast Media - IV Dye [id number] Drug Allergy Mild RASH 01/06/2007 Yes Iodinated Contrast Media - Oral and [id number] Drug Allergy Mild RASH 01/06/2007 Yes Iodinated Contrast- Oral and IV Dye [id number] Drug Allergy Mild RASH 01/06/2007 Medications Problems [...] LESION 01/11/2011 Ot 414.01 CORONARY ATHEROSCLEROSIS OF [place] CORON 01/11/2011 Ot 585.3 CHRONIC KIDNEY DISEASE, STAGE III (MODER 01/11/2011 Ot 607.84 IMPOTENCE, ORGANIC ORIGN 01/11/2011 Ot 682.6 CELLULITIS OF LEG 01/11/2011 Ot 682.7 CELLULITIS OF FOOT 01/11/2011 Ot 707.15 ULCER OF OTHER PART OF FOOT 01/11/2011 Ot V15.82 HISTORY OF TOBACCO USE 01/11/2011 Ot 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 04/14/2011 Ot 250.80 DIAB W OTH SPEC MANIFEST, TYPE II OR UNS 04/14/2011 [...] V58.62 08/04/2015 OTHER, UNLISTED Ot V58.83 08/04/2015 BOZENA BORRERO MD Ot V58.62 08/04/2015 BOZENA BORRERO MD Ot V58.83 08/04/2015 OTHER, UNLISTED Ot V58.62 08/04/2015 OTHER, UNLISTED Ot V58.83 08/24/2015 DENA LINDER, BEVERLY Ferris Ot M54.5 08/24/2015 BEVERLY FERNANDES MD Ot W19.XXXA 08/24/2015 DENA LINDER, BEVERLY Ferris Ot Y99.8 12/28/2015 NALINI HARLEY MD Ot E11.42 TYPE 2 DIABETES MELLITUS WITH DIABETIC P 12/28/2015 NALINI HARLEY MD Ot Z79.4 [facility] (CURRENT) USE OF INSULIN 12/29/2015 NALINI HARLEY MD Ot E11.42 TYPE 2 DIABETES MELLITUS WITH DIABETIC P 12/29/2015 NALINI HARLEY MD Ot 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 01/02/2016 Ot 681.10 CELLULITIS, TOE NOS 01/02/2016 MARTHA DAHL DO Ot 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 01/02/2016 NABILA BACH, MARTHA K Ot 427.31 ATRIAL FIBRILLATION 01/02/2016 BEVERLY FERNANDES MD Ot 136.9 INFECT/PARASITE DIS NOS 01/02/2016 BEVERLY FERNANDES MD Ot 250.80 DIAB W [...] Ot Y99.8 OTHER EXTERNAL CAUSE STATUS 01/23/2016 BEVERLY FERNANDES MD Ot E11.43 TYPE 2 [...] DO Ot 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 04/18/2016 MARTHA DAHL DO Ot 427.31 ATRIAL FIBRILLATION 04/18/2016 BEVERLY FERNANDES [...] MD Ot I25.10 ATHSCL HEART DISEASE OF [place] CORONARY 11/01/2016 BEVERLY FERNANDES MD Ot K59.00 [...] MD Ot M62.830 MUSCLE SPASM OF BACK 02/16/2017 NIKOLAI WRIGHT DOI Ot E11.40 TYPE 2 DIABETES MELLITUS WITH DIABETIC N 02/16/2017 ADRIANA BACH ANDRÉS Ot I10 ESSENTIAL (PRIMARY) HYPERTENSION 02/16/2017 NIKOLAI WRIGHT DOI Ot I25.10 ATHSCL HEART DISEASE OF [place] CORONARY 02/16/2017 NIKOLAI WRIGHT DOI Ot I80.02 PHLEBITIS AND THOMBOPHLB OF SUPERFIC VES 02/16/2017 ANDRÉS WRIGHT DO Ot I87.8 OTHER SPECIFIED DISORDERS OF VEINS 02/16/2017 ANDRÉS WRIGHT DO Ot L03.116 CELLULITIS OF LEFT LOWER LIMB 02/16/2017 ANDRÉS WRIGHT DO Ot 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 02/16/2017 ANDRÉS WRIGHT DO Ot Z95.1 PRESENCE OF AORTOCORONARY BYPASS GRAFT 02/16/2017 ANDRÉS WRIGHT DO Ot Z98.890 OTHER SPECIFIED POSTPROCEDURAL STATES 02/20/2017 DENA LINDER, BEVERLY Ferris Ot K62.5 HEMORRHAGE OF ANUS AND RECTUM 02/20/2017 DENA LINDER, BEVERLY Ferris Ot R19.7 DIARRHEA, UNSPECIFIED 02/20/2017 DENA LINDER, BEVERLY Ferris Ot Z01.818 ENCOUNTER FOR OTHER PREPROCEDURAL EXAMIN Procedures Code Description Performed By Performed On [...] lactic acid measurement (moles/volume) 1.42 mmol/L 0.50-2.00 Bacterial blood culture - 02/14/17 19:07 Bacterial blood culture NG NRG Bacterial blood culture - 02/14/17 19:41 Bacterial blood culture NG NR Capillary blood glucose measurement by glucometer (mass/volume) - 02/15/17 07: 25 Capillary blood glucose measurement by glucometer (mass/volume) 336 mg/dL 70-110 Capillary blood glucose measurement by glucometer (mass/volume) - 02/15/17 15: 36 Capillary blood glucose measurement by glucometer (mass/volume) 99 mg/dL 70-110 Capillary blood glucose measurement by glucometer (mass/volume) - 02/15/17 20: 40 Capillary blood glucose measurement by glucometer (mass/volume) 126 mg/dL 70-110 Capillary blood glucose measurement by glucometer (mass/volume) - 02/16/17 03: 57 Capillary blood glucose measurement by glucometer (mass/volume) 194 mg/dL 70-110 Capillary blood glucose measurement by glucometer (mass/volume) - 02/16/17 06: 32 Capillary blood glucose measurement by glucometer (mass/volume) 158 mg/dL 70-110 Complete blood count (CBC) with automated white blood cell (WBC) differential - 02/16/17 07:00 Blood leukocytes automated count (number/volume) 6.7 10*3/ uL 4.3-11.0 Blood erythrocytes automated count (number/volume) 3.14 10*6 /uL 4.35-5.85 Venous blood hemoglobin measurement (mass/volume) 8.9 g/dL 13.3-17.7 Blood hematocrit (volume fraction) 27 % 40-54 Automated erythrocyte mean corpuscular volume 86 [foz_us] 80-99 Automated erythrocyte mean corpuscular hemoglobin (mass per erythrocyte) 28 pg 25-34 Automated erythrocyte mean corpuscular hemoglobin concentration measurement ( mass/volume) 33 g/dL 32-36 Automated erythrocyte distribution width ratio 13.7 % 10.0-14.5 Automated blood platelet count (count/volume) 225 10*3/uL 130-400 Automated blood platelet mean volume measurement 9.6 [foz_us ] 7.4-10.4 Automated blood neutrophils/100 leukocytes 63 % 42-75 Automated blood lymphocytes/100 leukocytes 21 % 12-44 Blood monocytes/100 leukocytes 11 % 0-12 Automated blood eosinophils/100 leukocytes 5 % 0-10 Automated blood basophils/100 leukocytes 1 % 0-10 Blood neutrophils automated count (number/volume) 4.2 10*3 1.8-7.8 Blood lymphocytes automated count (number/volume) 1.4 10*3 1.0-4.0 Blood monocytes automated count (number/volume) 0.7 10*3 0.0-1.0 Automated eosinophil count 0.3 10*3/uL 0.0-0.3 Automated blood basophil count (count/volume) 0.1 10*3/uL 0.0-0.1 Comprehensive metabolic panel - 02/16/17 07:00 Serum or plasma sodium measurement (moles/volume) 142 mmol/ L 135-145 Serum or plasma potassium measurement (moles/volume) 4.0 mmol/L 3.6-5.0 Serum or plasma chloride measurement (moles/volume) 109 mmol /L 98-107 Carbon dioxide 26 mmol/L 21-32 Serum or plasma anion gap determination (moles/volume) 7 mmol/L 5-14 Serum or plasma urea nitrogen measurement (mass/volume) 22 mg/dL 7-18 Serum or plasma creatinine measurement (mass/volume) 1.42 mg /dL 0.60-1.30 Serum or plasma urea nitrogen/creatinine mass ratio 15 NRG Serum or plasma creatinine measurement with calculation of estimated glomerular filtration rate 49 NRG Serum or plasma glucose measurement (mass/volume) 154 mg/dL 70-105 Serum or plasma calcium measurement (mass/volume) 8.5 mg/dL 8.5-10.1 Serum or plasma total bilirubin measurement (mass/volume) 0.4 mg/dL 0.1-1.0 Serum or plasma alkaline phosphatase measurement (enzymatic activity/volume) 43 U/L 40-136 Serum or plasma aspartate aminotransferase measurement (enzymatic activity/ volume) 21 U/L 5-34 Serum or plasma alanine aminotransferase measurement (enzymatic activity/volume ) 16 U/L 0-55 Serum or plasma protein measurement (mass/volume) 5.8 g/dL 6.4-8.2 Serum or plasma albumin measurement (mass/volume) 2.8 g/dL 3.2-4.5 Vancomycin trough - 02/16/17 07:00 Vancomycin trough 17.7 ug/mL 10.0-20.0 Capillary blood glucose measurement by glucometer (mass/volume) - 02/16/17 11: 10 Capillary blood glucose measurement by glucometer (mass/volume) 102 mg/dL 70-110 Encounters ACCT No. Visit Date/Time Discharge Status Pt. Type Provider Facility Loc./Unit Complaint [id number] 02/14/2017 20:30:00 2016 12:15:00 DIS Inpatient ANDRÉS WRIGHT DO [facility] 4TH CELLULITIS AND LYMPHANGITIS LLE [id number] 01/15/2017 11:21:00 2016 13:45:00 DIS Outpatient BEVERLY FERNANDES MD [facility] REHAB CERVICALGIA WITH MUSCLE SPASM POST FALL [id number] 02/15/2016 11:16:00 2015 14:50:00 DIS Outpatient BEVERLY FERNANDES MD [facility] REHAB DIABETES MELLITUS W PERIPHERAL NEUROPATHY;DECONDIT [id number] 12/28/2015 15:08:00 2015 17:41:00 DIS Emergency NALINI HARLEY MD [facility] ER WEAKNESS,LOSS OF CONTROL IN LEGS [id number] 03/24/2014 18:29:00 2013 23:59:59 CLS Outpatient OTHER, UNLISTED [facility], [id number] 03/15/2014 16:50:00 2013 23:59:59 CLS Outpatient BOZENA BORRERO MD [facility] USE OF [facility]TIBIOTICS [id number] 03/14/2014 20:30:00 2013 23:59:59 CLS Outpatient OTHER, UNLISTED [facility] 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 [id number] 03/02/2014 10:53:00 2013 23:59:59 CLS Outpatient BEVERLY FERNANDES MD [facility] RAD DIABETES R FOOT INFECTION [id number] 05/14/2013 10:52:00 2012 23:59:59 CLS Outpatient MARTHA DAHL DO [facility] CARD AFIB [id number] 05/11/2013 05:27:00 2012 07:55:00 DIS Emergency MARTHA DAHL DO [facility] ER FALL/BACK PAIN LOW BLOOD SUGAR [id number] 02/26/2017 10:30:00 ACT Outpatient BEVERLY FERNANDES MD [facility] PREOP DIARRHEA AND RECTAL BLEEDING [id number] 02/21/2017 08:15:00 PEN Preadmit BEVERLY FERNANDES MD [facility] ENDO DIARRHEA; RECTAL BLEEDING [id number] 02/19/2017 05:37:00 ACT Outpatient BEVERLY FERNANDES MD [facility] PREOP DIARRHEA; RECTAL BLEEDING [id number] 11/21/2016 15:08:00 ACT Outpatient BEVERLY FERNANDES MD [facility] RAD NECK PAIN [id number] 10/10/2016 14:57:00 ACT Outpatient BEVERLY FERNANDES MD [facility] LAB FATIGUE [id number] 04/18/2016 08:44:00 ACT Outpatient BEVERLY FERNANDES MD [facility] RAD BILATERAL UPPER AND LOWER WEAKNESS AND LUMBAR BACK [id number] 08/04/2015 10:59:00 ACT Outpatient BEVERLY FERNANDES MD [facility] RAD FALL WITH BACK PAIN [id number] 05/24/2011 13:49:00 Document Registration [id number] 05/13/2011 11:15:00 Document Registration [id number] 04/11/2011 11:45:00 Document Registration [id number] 01/02/2011 18:18:00 Document Registration [id number] 12/27/2010 06:39:00 Document Registration [id number] 12/24/2010 20:47:00 Document Registration [id number] 03/01/2010 14:39:00 Document Registration
[2017-02-28] MEDS ORDERED: 1/2 NS IV SOLUTION 1,000 ML IV STA (08:31)
--- NOTE | 2017-02-28 08:31 | Pre-Op Note & Conscious Sedat ---
Pre-Operative Progress Note H&P Reviewed The H&P was reviewed, patient examined and no changes noted. Date H&P Reviewed: Feb 28, 2017 Time H&P Reviewed: 08:30 Conscious Sedation Pre-Proced ASA Class: 3 Airway Mallampati Classification: ([place] appropriate class) I. II. III, IV Lungs Heart ASA score ASA 1: a normal healthy patient ASA 2: a patient with a mild systemic disease (mid diabetes, controlled hypertension, obesity ASA 3: a patient with a severe systemic disease that limits activity (angina , COPD, prior Myocardial infarction) ASA 4: a patient with an incapacitating disease that is a constant threat to life (CHF, renal failure) ASA 5: a moribund patient not expected to survive 24 hrs. (ruptured aneurysm) ASA 6: a declared brain patient whose organs are being harvested. For emergent operations, add the letter E after the classification Grade 1 Sedation Plan: Analgesia, Amnesia, Plan communicated to team members, Discussed options with patient/fam, Discussed risks with patient/fam Note The patient is an appropriate candidate to undergo the planned procedure, sedation, and anesthesia. The patient immediately re-assessed prior to indication. BEVERLY FERNANDES MD Feb 28, 2017 08:31
[2017-02-28] MEDS ORDERED: fentaNYL INJECTION 100 MCG/2 ML AMP ONE (08:42)
[2017-02-28] MEDS ORDERED: LIDOCAINE JELLY 2% (XYLOCAINE) 5 ML TUBE ONE (08:42)
[2017-02-28] MEDS ORDERED: MIDAZOLAM 2 MG/2 ML (VERSED) VIAL ONE ×2 (08:42→09:26)
[2017-02-28] MEDS ORDERED: LIDOCAINE JELLY 2% (XYLOCAINE) 5 ML TUBE MM PRN (08:45)
[2017-02-28] MEDS ORDERED: HURRICAINE EXT TUBE (BENZOCAINE) XX PRN (08:45)
[2017-02-28] MEDS ORDERED: fentaNYL INJECTION 100 MCG/2 ML AMP IVP PRN (08:45)
[2017-02-28 08:53] VITALS: BP 176/75
[2017-02-28] MEDS: MIDAZOLAM 2 MG/2 ML (VERSED) VIAL IVP PRN ×2 (09:00→09:35)
[2017-02-28 09:35] VITALS: BP 124/77
[2017-02-28 10:00] VITALS: BP 155/73
[2017-02-28 10:30] VITALS: BP 153/66
[2017-02-28 11:40] VITALS: BP 153/66
--- NOTE | 2017-03-03 10:09 | PROCEDURE REPORT ---
PROCEDURE PHYSICIAN: BEVERLY FERNANDES DATE OF PROCEDURE: 02/28/2017 PANENDOSCOPY:: Panendoscopy was performed for evaluation of diarrhea with reflux symptoms intermittent dysphasia. PROCEDURE: The patient was placed in the left lateral decubitus position. Prior to undergoing colonoscopy, digital rectal evaluation was performed. Anal sphincter tone was somewhat lax but the perianal reflux was intact. During the procedure the patient did have more than the average amount of loss of liquid stool. Quality of the prep was fair. Digital rectal evaluation revealed a flat moderately enlarged prostate, anodular and nontender to digital inspection. The colonoscope was then inserted into the rectum and under direct visualization, advanced to cecum. The cecum was identified by identification of the ileocecal valve and cecal strap. Photographic documentation was obtained. Careful inspection was made as the colonoscope was withdrawn. FINDINGS: No rectal abnormalities were noted. Because of the history of diarrhea a biopsy was obtained and submitted for evaluation for microscopic colitis. The sigmoid colon, descending colon, transverse colon, ascending colon and cecum were normal, other than several small sigmoid diverticulum. There is no evidence for diverticulitis. No evidence for neoplasia. No inflammatory change was noted. ASSESSMENT: No significant mucosal abnormality was noted on colonoscopy today. The patient did have lax anal sphincter tone but the perianal reflex was intact. Mild diverticular disease confined to the sigmoid colon was present, without evidence for diverticulitis. A biopsy was obtained of the rectum and submitted for evaluation for microscopic colitis. EGD EVALUATION: The endoscope was inserted into the oral cavity and under visualization the esophagus was intubated. The endoscope was passed down the esophagus, stomach, and second portion of the duodenum. Careful inspection was made as the endoscope was withdrawn. FINDINGS: Proximal mid and distal esophagus were unremarkable. There is no evidence for rings, rubs, strictures, Flanagan's change or erosive esophagitis. There is no evidence for extrinsic compression. The cardia and fundus of the stomach were unremarkable. There were some patchy areas of antral erythema noted. A biopsy was obtained and submitted for histopathology and Helicobacter evaluation. The pylorus, the pyloric channel, the duodenal bulb, and second portion of the duodenum were unremarkable save for some questionable villous blunting, so biopsy from the duodenum was obtained for histopathology evaluation. ASSESSMENT: The patient had no evidence for intrinsic or extrinsic esophageal compression. There is no evidence for erosive esophagitis. Mild patchy antral erythema possibly be related to Plavix is present. Biopsy was obtained and submitted for Helicobacter and histopathology. There was also questionable villous blunting in the second portion of the duodenum, which was biopsied, and submitted for histopathology as well. We will await histopathology report before making future recommendation. Job ID: [id number] Dictated Date: 02/28/2017 13:22:49 Railroad Signal Operator Date: 03/03/2017 09:58:06 / satish CARTAGENA
== END 2017-02-28 11:40 | disposition home or self-care (01) ==
LOC: ENDO 08:19
PROVIDERS: ATTEND Internal Medicine
DX: R19.7 Diarrhea, unspecified (principal); K57.30 Diverticulosis of large intestine without perforation or abscess without bleeding; K63.89 Other specified diseases of intestine; K62.5 Hemorrhage of anus and rectum; K21.9 Gastro-esophageal reflux disease without esophagitis; E11.40 Type 2 diabetes mellitus with diabetic neuropathy, unspecified

== ENCOUNTER 2017-10-24 20:51 | Emergency (ER) | payer MEDICARE, OTHER ==
[~2017-10-24] VITALS: Ht 190.5 cm; Wt 78.0 kg
[~2017-10-24 20:51] MED LIST changes: +ACHD5005 PO; -HYDR-3812 PO
[2017-10-24 21:34] LABS: BILIRUBIN,URINE NEGATIVE (NEGATIVE); CLARITY,URINE CLEAR; COLOR,URINE YELLOW; GLUCOSE, URINE (UA) 4+ (NEGATIVE); KETONES,URINE 2+ (NEGATIVE); LEUKOCYTE ESTERASE ,URINE NEGATIVE (NEGATIVE); NITRITE,URINE NEGATIVE (NEGATIVE); PH,URINE 6.5 (5-9); PROTEIN,URINE 2+ (NEGATIVE); UROBILINOGEN,URINE NORMAL (NORMAL)
[2017-10-24 21:42] LABS: BACTERIA,URINE NEGATIVE /HPF; RBC,URINE RARE /HPF; WBC,URINE RARE /HPF
[2017-10-24] MEDS ORDERED: NS IV 1000 ML 1,000 ML IV ONE (22:14)
[2017-10-24 22:31] LABS: BASOPHILS # (AUTO) 0.1 10^3/uL (0.0-0.1); BASOPHILS % (AUTO) 1 % (0-10); EOSINOPHILS % (AUTO) 0 % (0-10); HEMATOCRIT 38 % (40-54); HEMOGLOBIN 12.9 G/DL (13.3-17.7); LYMPHOCYTES # (AUTO) 1.2 X 10^3 (1.0-4.0); LYMPHOCYTES % (AUTO) 15 % (12-44); MEAN CORPUSCULAR HEMOGLOBIN 28 PG (25-34); MEAN CORPUSCULAR HGB CONC 34 G/DL (32-36); MEAN CORPUSCULAR VOLUME 81 FL (80-99); MEAN PLATELET VOLUME 9.8 FL (7.4-10.4); MONOCYTES # (AUTO) 0.4 X 10^3 (0.0-1.0); MONOCYTES % (AUTO) 6 % (0-12); NEUTROPHILS # (AUTO) 6.2 X 10^3 (1.8-7.8); NEUTROPHILS % (AUTO) 78 % (42-75); PLATELET COUNT 186 10^3/uL (130-400); RED BLOOD COUNT 4.65 10^6/uL (4.35-5.85); RED CELL DISTRIBUTION WIDTH 14.5 % (10.0-14.5)
[2017-10-24] MEDS ORDERED: FAMOTIDINE 20MG/2ML IV (PEPCID) IV STA (22:35)
[2017-10-24 22:48] LABS: ALBUMIN 3.8 GM/DL (3.2-4.5); BILIRUBIN,TOTAL 1.2 MG/DL (0.1-1.0); CALCIUM 8.8 MG/DL (8.5-10.1); CREATININE SERUM 1.26 MG/DL (0.60-1.30); POTASSIUM 4.4 MMOL/L (3.6-5.0); TOTAL PROTEIN 6.9 GM/DL (6.4-8.2)
--- NOTE | 2017-10-24 23:05 | ED General ---
General Chief Complaint: General Problems/Pain Stated Complaint: KIDNEY PAIN/POSS DEHYDRATED Nursing Triage Note: generalized weakness, lower back pain, difficult urination, headache, right leg pain. Nursing Sepsis Screen: No Definite Risk History of Present Illness Date Seen by Provider: Oct 24, 2017 Time Seen by Provider: 22:00 Initial Comments 72-year-old male reports generalized weakness, decreased oral intake and peripheral neuropathy symptoms today. He denies fever. He has eaten very little today. He reports his blood sugars running from 200-400. He has tried Lyrica in the past for his neuropathy. He has not taken his medication today for his diabetes. Timing/Duration: 1-2 Days Severity: Mild Associated Systoms: No Chest Pain, No Cough, Headaches, Loss of Appetite, No Nausea/Vomiting, No Seizure, No Shortness of Air, No Syncope, Weakness Allergies and Home Medications Allergies Coded Allergies: Iodinated Contrast- Oral and IV Dye (Unverified Allergy, Mild, RASH, ) Home Medications Amiodarone HCl 200 Mg Tablet, 200 MG PO HS, (Reported) Atorvastatin Calcium 10 Mg Tablet, 10 MG PO HS, (Reported) Bumetanide 1 Mg Tablet, 1 MG PO HS, (Reported) Cetirizine HCl 10 Mg Tab.chew, 10 MG PO HS, (Reported) Insulin Determir 100 Unit/1 Ml Insuln.pen, UNITS SQ HS, (Reported) PT USES A SLIDING SCALE WHEN GIVING HIMSELF LEVEMIR AT HS HE WILL TAKE ANYWHERE FROM 15 TO 35 UNITS DEPENDING ON GLUCOSE LEVEL - HE ALSO ADDS APPROX. 10 UNITS OF HUMALOG AT HS DEPENDING ON GLUCOSE LEVEL) Isosorbide Mononitrate 30 Mg Tab.er.24h, 30 MG PO HS, (Reported) Potassium Chloride 10 Meq Capsule.er, 10 MEQ PO HS, (Reported) Ramipril 10 Mg Capsule, 10 MG PO HS, (Reported) Patient Home Medication List Home Medication List Reviewed: Yes Constitutional: see HPI, weakness Gastrointestinal: see HPI, heartburn All Other Systems Reviewed Negative Unless Noted: Yes Past Xdklsoj-Ksbqpf-Ojjmdo Hx Patient Social History Alcohol Use: Denies Use Recreational Drug Use: No Smoking Status: Never a Smoker 2nd Hand Smoke Exposure: No Recent Foreign Travel: No Contact w/Someone Who Travel: No Recent Infectious Disease Expo: No Recent Hopitalizations: No Immunizations Up To Date Tetanus Booster (TDap): Less than 5yrs Seasonal Allergies Seasonal Allergies: No Surgeries History of Surgeries: Yes (eye surg, ear surg, partial right great toe amputation, penile implant, ) Surgeries: CABG, Prostatectomy Respiratory History of Respiratory Disorde: No Cardiovascular History of Cardiac Disorders: Yes (quad bypass) Cardiac Disorders: Coronary Artery Disease, Hypertension Neurological History of Neurological Disord: Yes Neurological Disorders: Neuropathy Reproductive System Hx Reproductive Disorders: No Genitourinary History of Genitourinary Disor: No Gastrointestinal History of Gastrointestinal Di: Yes Gastrointestinal Disorders: Chronic Diarrhea, Gall Bladder Disease Musculoskeletal History of Musculoskeletal Dis: Yes (partial right great toe amputation due to diabetic ulcer) Endocrine History of Endocrine Disorders: Yes Endocrine Disorders: Diabetes, Insulin dep HEENT History of HEENT Disorders: Yes (hearing difficulty right ear) HEENT Disorders: Cataract Hearing Impairment: Hard of Hearing Cancer History of Cancer: No Psychosocial History of Psychiatric Problem: No Integumentary History of Skin or Integumenta: Yes (cellulitis left leg w/this admit 02/14/17) Skin/Integumentary Disorders: Recent Skin Changes Blood Transfusions History of Blood Disorders: No Reviewed Nursing Assessment Reviewed/Agree w Nursing PMH: Yes Family Medical History Significant Family History: Diabetes, Stroke Family Medial History: Diabetes mellitus 19 MOTHER G8 SISTER FH: breast cancer 19 MOTHER FH: emphysema 19 FATHER FH: prostate cancer 19 FATHER FH: stroke son Myocardial infarction son Physical Exam Vital Signs Vital Signs - First Documented 10/24/17 21:10 Temp 97.7 Pulse 89 Resp 16 B/P (MAP) 158/79 (105) Pulse Ox 94 O2 Delivery Room Air Capillary Refill : Less Than 3 Seconds General Appearance: No Apparent Distress, WD/WN Eyes: Bilateral Eye Normal Inspection HEENT: PERRL/EOMI, TMs Normal, Normal ENT Inspection, Pharynx Normal, Other ( oral mucosa pale and dry) Neck: Full Range of Motion, Normal Inspection, Non Tender, Supple Respiratory: Chest Non Tender, Lungs Clear Cardiovascular: Regular Rate, Rhythm, Normal Peripheral Pulses, Systolic Murmur Gastrointestinal: Normal Bowel Sounds, Non Tender, Soft Extremity: Normal Range of Motion, No Calf Tenderness, Pedal Edema (1+) Neurologic/Psychiatric: Alert, Oriented x3, No Motor/Sensory Deficits, Normal Mood/Affect Skin: Normal Color, Warm/Dry Progress/Results/Core Measures Suspected Sepsis Recent Fever Within 48 Hours: No Infection Criteria Present: None New/Unexplained Altered Menta: No Sepsis Screen: No Definite Risk Sepsis Diagnosis: SIRS Temperature:97.7 Pulse: 89 Respiratory Rate: 16 Laboratory Tests 10/24/17 22:20: White Blood Count 8.0 Blood Pressure 158 /79 Mean: 105 Laboratory Tests 10/24/17 22:20: Creatinine 1.26, Platelet Count 186, Total Bilirubin 1.2H Results/Orders Lab Results Laboratory Tests Test 10/24/17 21:15 10/24/17 22:20 Range/Units Urine Color YELLOW Urine Clarity CLEAR Urine pH 6.5 5-9 Urine Specific [place] 1.015 L 1.016-1.022 Urine Protein 2+ H NEGATIVE Urine Glucose (UA) 4+ H NEGATIVE Urine Ketones 2+ H NEGATIVE Urine Nitrite NEGATIVE NEGATIVE Urine Bilirubin NEGATIVE NEGATIVE Urine Urobilinogen NORMAL NORMAL MG/DL Urine Leukocyte Esterase NEGATIVE NEGATIVE Urine RBC (Auto) 1+ H NEGATIVE Urine RBC RARE /HPF Urine WBC RARE /HPF Urine Crystals NONE /LPF Urine Bacteria NEGATIVE /HPF Urine Casts NONE /LPF Urine Mucus NEGATIVE /LPF Urine Culture Indicated NO White Blood Count 8.0 4.3-11.0 10^3/uL Red Blood Count 4.65 4.35-5.85 10^6/uL Hemoglobin 12.9 L 13.3-17.7 G/DL Hematocrit 38 L 40-54 % Mean Corpuscular Volume 81 80-99 FL Mean Corpuscular Hemoglobin 28 25-34 PG Mean Corpuscular Hemoglobin Concent 34 32-36 G/DL Red Cell Distribution Width 14.5 10.0-14.5 % Platelet Count 186 130-400 10^3/uL Mean Platelet Volume 9.8 7.4-10.4 FL Neutrophils (%) (Auto) 78 H 42-75 % Lymphocytes (%) (Auto) 15 12-44 % Monocytes (%) (Auto) 6 0-12 % Eosinophils (%) (Auto) 0 0-10 % Basophils (%) (Auto) 1 0-10 % Neutrophils # (Auto) 6.2 1.8-7.8 X 10^3 Lymphocytes # (Auto) 1.2 1.0-4.0 X 10^3 Monocytes # (Auto) 0.4 0.0-1.0 X 10^3 Eosinophils # (Auto) 0.0 0.0-0.3 10^3/uL Basophils # (Auto) 0.1 0.0-0.1 10^3/uL Sodium Level 137 135-145 MMOL/L Potassium Level 4.4 3.6-5.0 MMOL/L Chloride Level 102 98-107 MMOL/L Carbon Dioxide Level 23 21-32 MMOL/L Anion Gap 12 5-14 MMOL/L Blood Urea Nitrogen 20 H 7-18 MG/DL Creatinine 1.26 0.60-1.30 MG/DL Estimat Glomerular Filtration Rate 56 BUN/Creatinine Ratio 16 Glucose Level 280 H 70-105 MG/DL Calcium Level 8.8 8.5-10.1 MG/DL Total Bilirubin 1.2 H 0.1-1.0 MG/DL Aspartate Amino Transf (AST/SGOT) 20 5-34 U/L Alanine Aminotransferase (ALT/SGPT) 23 0-55 U/L Alkaline Phosphatase 43 40-136 U/L Total Protein 6.9 6.4-8.2 GM/DL Albumin 3.8 3.2-4.5 GM/DL My Orders Orders - [facility] Saline Lock/Iv-Start (10/24/17 22:14) Ns Iv 1000 Ml (Sodium Chloride 0.9%) (10/24/17 22:14) Cbc With Automated Diff (10/24/17 22:23) Comprehensive Metabolic Panel (10/24/17 22:23) Famotidine Injection (Pepcid Injection) (10/24/17 22:35) Medications Given in ED Current Medications Medications Dose Ordered Sig/Dajuan Route Start Time Stop Time Status Last Admin Dose Admin Sodium Chloride 1,000 ml @ 0 mls/hr Q0M ONCE IV 10/24/17 22:14 10/24/17 22:15 DC 10/24/17 22:23 0 MLS/HR Vital Signs/I&O Vital Sign - Last 12Hours 10/24/17 10/24/17 21:10 23:13 Temp 97.7 98.0 Pulse 89 78 Resp 16 16 B/P (MAP) 158/79 (105) 156/74 (105) Pulse Ox 94 95 O2 Delivery Room Air Room Air Capillary Refill : Less Than 3 Seconds Blood Pressure Mean: 105 Progress Note : Time: 22:00 Progress Note Initial evaluation completed, recommended labs and 1 L normal saline per IV, Pepcid 20 mg IV for GERD. 2250 patient reports to be feeling better, discussed his blood sugar 280, he declined wanting insulin at this time and will take his Levemir when he returns home. Encouraged follow-up with Dr. Fernandes in the near future. Discharge instructions and return precautions reviewed, all questions answered. Departure Impression Impression: Primary Impression: Generalized weakness Additional Impressions: Hyperglycemia GERD (gastroesophageal reflux disease) Qualified Codes: K21.9 - Gastro-esophageal reflux disease without esophagitis Diabetic neuropathy Qualified Codes: E11.42 - Type 2 diabetes mellitus with diabetic polyneuropathy Disposition: HOME, SELF-CARE Condition: Improved Departure-Patient Inst. Decision time for Depature: 22:50 Referrals: BEVERLY FERNANDES MD (PCP/Family) Primary Care Physician Patient Instructions: Acid Reflux (Gastroesophageal Reflux Disease), Adult (DC) , Diabetic Neuropathy (DC) Add. Discharge Instructions: Take your nighttime insulin before going to bed tonight. Increase fluid intake. Continue home medication as normally prescribed by Dr. Fernandes. Follow-up with Dr. Fernandes next week if continued symptoms Return to emergency department if symptoms worsen. All discharge instructions reviewed with patient and/or family. Voiced understanding. Copy Copies To 1: BEVERLY FERNANDES MD, AMY ARNP Oct 24, 2017 23:05
[2017-10-24 23:13] VITALS: BP 156/74
--- OUTSIDE RECORDS SUMMARY | 2017-10-26 06:36 | XMS REPORT | Clinical Summary ---
Author Author [facility] Organization [facility] Address Unknown Phone Unavailable Care Team Providers Care Potato Bucker Name Role Phone Kevin Perrin MD Unavailable Nj Martell MD Unavailable Judy Cullen RN Unavailable Unavailable Thai Burleson MD PCP Glendy Enriquez RN Unavailable Unavailable Maria A Mckeon DO Unavailable Bessy Fry APRN Unavailable Source Comments Some departments are not documenting in the electronic medical record. If you do not see the information that you expected, contact Release of Information in the Health Information Management department at [phone] for further assistance in locating additional records.[facility] Allergies Active Allergy Reactions Severity Noted Date Comments Iodinated Contrast- Oral RASH 03/18/2013 And Iv Dye Current Medications Prescription Sig. Disp. Refills Start [...] antibiotics. Non-proliferative diabetic retinopathy, mild, right eye ([facility]) 09/03/2013 Last Assessment & Plan: - no significant DME on exam today. Discussed importance of continued glucose monitoring Vitreous hemorrhage of left eye ([facility]) 07/07/2013 Overview: Noticed as rapid loss of [...] Patient s was present for the discussion. Family History Medical History Relation Name Comments Diabetes Sister Relation Name Status Comments Sister Social History Tobacco Use Types Packs/Day Years Used Date Never Smoker Smokeless Tobacco: Never Used Alcohol Use Drinks/Week oz/Week Comments No Sex Assigned at Date Recorded Not on file Last Filed Vital Signs Vital Sign Reading Time Taken Blood Pressure 120/70 04/14/2014 11:15 AM CDT Pulse 60 04/14/2014 11:15 AM CDT Temperature 36.7 C (98.1 F) 04/14/2014 11:15 AM CDT Respiratory Rate 12 04/14/2014 11:15 AM CDT Oxygen Saturation 96% 03/13/2014 2:10 PM CDT Inhaled Oxygen - - Concentration Weight 83.9 kg (185 lb) 04/14/2014 11:57 AM CDT Height 190.5 cm (6' 3") 04/14/2014 11:57 AM CDT Body Mass Index 23.12 04/14/2014 11:57 AM CDT Plan of Treatment Health Maintenance Due Date Last Done Comments PHYSICAL (COMPREHENSIVE) 1952 EXAM PERTUSSIS VACCINE 1955 TETANUS VACCINE 1961 COLORECTAL CANCER 1994 SCREENING SHINGLES VACCINE 2004 PREVNAR/PNEUMOVAX (#1) 2009 INFLUENZA VACCINE 05/18/2018 Results Not on filefrom Last 3 Months
--- OUTSIDE RECORDS SUMMARY | 2017-10-26 06:40 | XMS REPORT | Continuity of Care Document ---
Author Author [facility] Organization [facility] Address Unknown Phone Unavailable Allergies Active Description Code Type Severity Reaction Onset Reported/Identified Relationship to Patient Clinical Status Yes iodinated radiocontrast dye 21 Drug Moderate [id number] Yes Iodinated Contrast Media - IV Dye [id number] Drug Allergy Mild RASH 2006 Yes Iodinated Contrast Media - Oral and [id number] Drug Allergy Mild RASH 01/06 Yes Iodinated Contrast- Oral and IV Dye [id number] Drug Allergy Mild RASH 01/06 Medications There is no data. 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 01/02/2016 NABILA DO, MARTHA K Ot 427.31 ATRIAL FIBRILLATION 01/02/2016 [...] Ot W19.XXXA UNSPECIFIED FALL, INITIAL ENCOUNTER 01/02/2016 BEVERLY FERNANDES MD Ot Y99.8 OTHER EXTERNAL CAUSE STATUS 01/23/2016 BEVERLY FERNANDES MD Ot E11.43 TYPE 2 DIABETES W DIABETIC AUTONOMIC (PO 01/23/2016 BEVERLY FERNANDES MD Ot Z91.81 HISTORY OF FALLING 01/31/2016 BEVERLY FERNANDES MD Ot E11.43 TYPE 2 DIABETES W DIABETIC AUTONOMIC (PO 01/31/2016 BEVERLY FERNANDES MD Ot Z91.81 HISTORY OF FALLING 03/06/2016 FERNANDES MD, BEVERLY D Ot E11.43 TYPE 2 DIABETES W DIABETIC AUTONOMIC (PO 03/06/2016 BEVERLY FERNANDES MD Ot Z91.81 HISTORY OF FALLING 04/18/2016 Ot 681.10 CELLULITIS, TOE NOS 04/18/2016 MARTHA DAHL DO Ot 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 04/18/2016 NABILA BACH MARTHA Ibarra Ot 427.31 ATRIAL FIBRILLATION 04/18/2016 BEVERLY [...] MD Ot I25.10 ATHSCL HEART DISEASE OF [place] CORONARY 11/01/2016 BEVERLY FERNANDES MD Ot K59.00 [...] Ot M62.830 MUSCLE SPASM OF BACK 02/16/2017 ADRIANA BACH, ANDRÉS Ot E11.40 TYPE 2 DIABETES MELLITUS WITH DIABETIC N 02/16/2017 ADRIANA DO, ANDRÉS Ot I10 ESSENTIAL (PRIMARY) HYPERTENSION 02/16/2017 ADRIANA BACH ANDRÉS Ot I25.10 ATHSCL HEART DISEASE OF [place] CORONARY 02/16/2017 ANDRÉS WRIGHT DO Ot 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.02 PHLEBITIS AND THOMBOPHLB OF SUPERFIC VES 02/16/2017 ANDRÉS WRIGHT DO Ot I87.8 OTHER SPECIFIED DISORDERS OF VEINS 02/16/2017 ANDRÉS WRIGHT DO Ot L03.116 CELLULITIS OF LEFT LOWER LIMB 02/16/2017 ANDRÉS WRIGHT DO Ot Z79.4 SOFTWARE QA MANAGER (CURRENT) USE OF INSULIN 02/16/2017 ANDRÉS WRIGHT DO Ot Z95.1 PRESENCE OF AORTOCORONARY BYPASS GRAFT 02/16/2017 ANDRÉS WRIGHT DO Ot Z98.890 OTHER SPECIFIED POSTPROCEDURAL STATES 02/20/2017 BEVERLY FERNANDES MD Ot K62.5 HEMORRHAGE OF ANUS AND RECTUM 02/20/2017 BEVERLY FERNANDES MD Ot R19.7 DIARRHEA, UNSPECIFIED 02/20/2017 BEVERLY FERNANDES MD Ot Z01.818 ENCOUNTER FOR OTHER PREPROCEDURAL EXAMIN 02/27/2017 BEVERLY FERNANDES MD Ot K62.5 HEMORRHAGE OF ANUS AND RECTUM 02/27/2017 BEVERLY FERNANDES MD Ot R19.7 DIARRHEA, UNSPECIFIED 02/27/2017 BEVERLY FERNANDES MD Ot Z01.818 ENCOUNTER FOR OTHER PREPROCEDURAL EXAMIN 02/28/2017 BEVERLY FERNANDES MD Ot E11.40 TYPE 2 DIABETES MELLITUS WITH DIABETIC N 02/28/2017 BEVERLY FERNANDES MD Ot K21.9 GASTRO-ESOPHAGEAL REFLUX DISEASE WITHOUT 02/28/2017 BEVERLY FERNANDES MD Ot K57.30 DVRTCLOS OF LG INT W/O PERFORATION OR AB 02/28/2017 BEVERLY FERNANDES MD Ot K62.5 HEMORRHAGE OF ANUS AND RECTUM 02/28/2017 BEVERLY FERNANDES MD Ot K63.89 OTHER SPECIFIED DISEASES OF INTESTINE 02/28/2017 BEVERLY FERNANDES MD Ot R19.7 DIARRHEA, UNSPECIFIED 03/08/2017 BEVERLY FERNANDES MD Ot E11.40 TYPE 2 DIABETES MELLITUS WITH DIABETIC N 03/08/2017 BEVERLY FERNANDES MD Ot K21.9 GASTRO-ESOPHAGEAL REFLUX DISEASE WITHOUT 03/08/2017 BEVERLY FERNANDES MD Ot K57.30 DVRTCLOS OF LG INT W/O PERFORATION OR AB 03/08/2017 BEVERLY FERNANDES MD Ot K62.5 HEMORRHAGE OF ANUS AND RECTUM 03/08/2017 BEVERLY FERNANDES MD Ot K63.89 OTHER SPECIFIED DISEASES OF INTESTINE 03/08/2017 BEVERLY FERNANDES MD Ot R19.7 DIARRHEA, UNSPECIFIED Procedures Code Description Performed By Performed On 80.88 01/04/2011 83.39 01/09/2011 86.59 01/09/2011 Results Test Result Range Complete blood count (CBC) with automated white blood cell (WBC) differential - 10/10/16 15:10 Blood leukocytes automated count (number/volume) 7.5 10*3/uL 4.3-11.0 Blood erythrocytes automated count (number/volume) 4.35 10*6/uL 4.35-5.85 Venous blood hemoglobin measurement (mass/volume) 12.3 [...] Automated blood platelet mean volume measurement 9.1 [foz_us] 7.4-10.4 Automated blood neutrophils/100 leukocytes 74 % [...] Serum or plasma sodium measurement (moles/volume) 139 mmol/L 135-145 Serum or plasma potassium measurement (moles/volume) 4.3 mmol/L 3.6-5.0 Serum or plasma chloride measurement (moles/volume) 101 mmol/L 98-107 Carbon dioxide 24 mmol/L 21-32 Serum or plasma anion gap determination (moles/volume) 14 mmol/L 5-14 Serum or plasma urea nitrogen measurement (mass/volume) 13 mg/dL 7-18 Serum or plasma creatinine measurement (mass/volume) 1.27 mg/dL 0.60-1.30 Serum or plasma urea nitrogen/creatinine mass [...] 18:57 Blood leukocytes automated count (number/volume) 11.8 10*3/uL 4.3-11.0 Blood erythrocytes automated count (number/volume) 3.82 10*6/uL 4.35-5.85 Venous blood hemoglobin measurement (mass/volume) 11.0 [...] Automated blood platelet mean volume measurement 9.6 [foz_us] 7.4-10.4 Automated blood neutrophils/100 leukocytes 71 % [...] Serum or plasma sodium measurement (moles/volume) 136 mmol/L 135-145 Serum or plasma potassium measurement (moles/volume) 4.1 mmol/L 3.6-5.0 Serum or plasma chloride measurement (moles/volume) 100 mmol/L 98-107 Carbon dioxide 25 mmol/L 21-32 Serum or plasma anion gap determination (moles/volume) 11 mmol/L 5-14 Serum or plasma urea nitrogen measurement (mass/volume) 26 mg/dL 7-18 Serum or plasma creatinine measurement (mass/volume) 1.36 mg/dL 0.60-1.30 Serum or plasma urea nitrogen/creatinine mass [...] - 02/14/17 19:41 Bacterial blood culture NG NRG Capillary blood glucose measurement by glucometer (mass/volume) [...] 07:00 Blood leukocytes automated count (number/volume) 6.7 10*3/uL 4.3-11.0 Blood erythrocytes automated count (number/volume) 3.14 10*6/uL 4.35-5.85 Venous blood hemoglobin measurement (mass/volume) 8.9 [...] Automated blood platelet mean volume measurement 9.6 [foz_us] 7.4-10.4 Automated blood neutrophils/100 leukocytes 63 % [...] Serum or plasma sodium measurement (moles/volume) 142 mmol/L 135-145 Serum or plasma potassium measurement (moles/volume) 4.0 mmol/L 3.6-5.0 Serum or plasma chloride measurement (moles/volume) 109 mmol/L 98-107 Carbon dioxide 26 mmol/L 21-32 Serum or plasma anion gap determination (moles/volume) 7 mmol/L 5-14 Serum or plasma urea nitrogen measurement (mass/volume) 22 mg/dL 7-18 Serum or plasma creatinine measurement (mass/volume) 1.42 mg/dL 0.60-1.30 Serum or plasma urea nitrogen/creatinine mass [...] Status Pt. Type Provider Facility Loc./Unit Complaint [id number] 02/28/2017 08:19:00 02/28/2017 11:40:00 DIS Outpatient BEVERLY FERNANDES MD [facility] ENDO DIARRHEA; RECTAL BLEEDING [id number] 02/26/2017 10:30:00 02/26/2017 16:00:00 DIS Outpatient BEVERLY FERNANDES MD [facility] PREOP DIARRHEA AND RECTAL BLEEDING [id number] 02/19/2017 05:37:00 02/19/2017 23:59:59 CLS Outpatient BEVERLY FERNANDES MD [facility] PREOP DIARRHEA; RECTAL BLEEDING [id number] 02/14/2017 20:30:00 02/16/2017 12:15:00 DIS Inpatient ANDRÉS WRIGHT DO [facility] 4TH CELLULITIS AND LYMPHANGITIS LLE [id number] 01/15/2017 11:21:00 01/15/2017 13:45:00 DIS Outpatient BEVERLY FERNANDES MD [facility] REHAB CERVICALGIA WITH MUSCLE SPASM POST FALL [id number] 11/21/2016 15:08:00 11/21/2016 23:59:59 CLS Outpatient BEVERLY FERNANDES MD [facility] RAD NECK PAIN [id number] 10/10/2016 14:57:00 10/10/2016 23:59:59 CLS Outpatient BEVERLY FERNANDES MD [facility] LAB FATIGUE [id number] 04/18/2016 08:44:00 04/18/2016 23:59:59 CLS Outpatient BEVERLY FERNANDES MD [facility] RAD BILATERAL UPPER AND LOWER WEAKNESS AND LUMBAR BACK [id number] 02/15/2016 11:16:00 03/06/2016 14:50:00 DIS Outpatient BEVERLY FERNANDES MD [facility] REHAB DIABETES MELLITUS W PERIPHERAL NEUROPATHY;DECONDIT [id number] 12/28/2015 15:08:00 12/28/2015 17:41:00 DIS Emergency NALINI HARLEY MD [facility] ER WEAKNESS,LOSS OF CONTROL IN LEGS [id number] 08/04/2015 10:59:00 08/04/2015 23:59:59 CLS Outpatient BEVERLY FERNANDES MD [facility] RAD FALL WITH BACK PAIN [id number] 03/24/2014 18:29:00 03/24/2014 23:59:59 CLS Outpatient OTHER, UNLISTED [facility] LABNPT INTERMEDIATE MED USE, [id number] 03/15/2014 16:50:00 03/15/2014 23:59:59 CLS Outpatient BOZENA BORRERO MD [facility] LABT SOFTWARE QA MANAGER MED USE OF ANTIBIOTICS [id number] 03/14/2014 20:30:00 03/14/2014 23:59:59 CLS Outpatient OTHER, UNLISTED [facility] LABNPT INTERMEDIATE USE OF ANTIBIOTICS [id number] 03/02/2014 10:53:00 03/02/2014 23:59:59 CLS Outpatient BEVERLY FERNANDES MD [facility] RAD DIABETES R FOOT INFECTION [id number] 05/14/2013 10:52:00 05/14/2013 23:59:59 CLS Outpatient MARTHA DAHL DO [facility] CARD AFIB [id number] 05/11/2013 05:27:00 05/11/2013 07:55:00 DIS Emergency MARTHA DAHL DO [facility] ER FALL/BACK PAIN LOW BLOOD SUGAR [id number] 05/24/2011 13:49:00 Document Registration [id number] 05/13/2011 11:15:00 Document Registration [id number] 04/11/2011 11:45:00 Document Registration [id number] 01/02/2011 18:18:00 Document Registration [id number] 12/27/2010 06:39:00 Document Registration [id number] 12/24/2010 20:47:00 Document Registration [id number] 03/01/2010 14:39:00 Document Registration [id number] 06/17/2017 13:17:52 06/17/2017 23:59:59 DIS Outpatient [facility] JOSE LUIS Josy [facility] [id number] 05/13/2017 14:00:00 05/13/2017 23:59:59 DIS Outpatient [facility] JOSE LUIS Josy [facility] [id number] 04/08/2017 09:59:11 04/08/2017 23:59:59 CLS Preadmit NDS[place]JOSE LUIS Josy [facility] Surgery car [id number] 04/01/2017 10:45:00 04/01/2017 23:59:59 DIS Outpatient JOSE LUIS PERAZA Josy [facility] [id number] 08/16/2017 02:00:31 Document Registration
== END 2017-10-24 23:13 | disposition home or self-care (01) ==
LOC: EDUNIT# 20:51 → ER 20:52
DX: R53.1 Weakness (principal); E11.65 Type 2 diabetes mellitus with hyperglycemia; K21.9 Gastro-esophageal reflux disease without esophagitis; E11.42 Type 2 diabetes mellitus with diabetic polyneuropathy; I25.10 Atherosclerotic heart disease of native coronary artery without angina pectoris; I10 Essential (primary) hypertension; E11.621 Type 2 diabetes mellitus with foot ulcer; L97.519 Non-pressure chronic ulcer of other part of right foot with unspecified severity; Z85.46 Personal history of malignant neoplasm of prostate; Z87.19 Personal history of other diseases of the digestive system; Z91.041 Radiographic dye allergy status; Z79.4 Long term (current) use of insulin; Z95.1 Presence of aortocoronary bypass graft; Z89.411 Acquired absence of right great toe; Z90.79 Acquired absence of other genital organ(s)
CPT/HCPCS: 36415; 80053; 81000; 85025

== ENCOUNTER 2018-03-18 10:50 | Emergency (ER) | payer MEDICARE, OTHER ==
[~2018-03-18] VITALS: Ht 190.5 cm; Wt 86.2 kg
[~2018-03-18 10:50] MED LIST changes: -AMIO200T2 PO; +AMIO200T4 PO
[2018-03-18 11:42] LABS: BILIRUBIN,URINE NEGATIVE (NEGATIVE); CLARITY,URINE CLEAR; COLOR,URINE YELLOW; GLUCOSE, URINE (UA) 1+ (NEGATIVE); KETONES,URINE NEGATIVE (NEGATIVE); LEUKOCYTE ESTERASE ,URINE NEGATIVE (NEGATIVE); NITRITE,URINE NEGATIVE (NEGATIVE); PH,URINE 6.5 (5-9); PROTEIN,URINE NEGATIVE (NEGATIVE); UROBILINOGEN,URINE NORMAL (NORMAL)
[2018-03-18] MEDS ORDERED: ONDANSETRON 4 MG/2 ML (SDV) Z0FRAN IVP ONE (11:45)
[2018-03-18] MEDS ORDERED: fentaNYL INJECTION 100 MCG/2 ML AMP IVP ONE (11:45)
[2018-03-18 11:47] LABS: BACTERIA,URINE NEGATIVE /HPF
[2018-03-18 11:50] LABS: BASOPHILS % (AUTO) 0 % (0-10); EOSINOPHILS # (AUTO) 0.1 10^3/uL (0.0-0.3); EOSINOPHILS % (AUTO) 1 % (0-10); HEMATOCRIT 35 % (40-54); HEMOGLOBIN 12.3 G/DL (13.3-17.7); LYMPHOCYTES # (AUTO) 1.3 X 10^3 (1.0-4.0); LYMPHOCYTES % (AUTO) 12 % (12-44); MEAN CORPUSCULAR HEMOGLOBIN 29 PG (25-34); MEAN CORPUSCULAR HGB CONC 35 G/DL (32-36); MEAN CORPUSCULAR VOLUME 81 FL (80-99); MEAN PLATELET VOLUME 10.2 FL (7.4-10.4); MONOCYTES # (AUTO) 1.4 X 10^3 (0.0-1.0); MONOCYTES % (AUTO) 13 % (0-12); NEUTROPHILS % (AUTO) 74 % (42-75); PLATELET COUNT 197 10^3/uL (130-400); RED BLOOD COUNT 4.31 10^6/uL (4.35-5.85); RED CELL DISTRIBUTION WIDTH 15.9 % (10.0-14.5); WHITE BLOOD COUNT 10.7 10^3/uL (4.3-11.0)
[2018-03-18 12:03] LABS: ALBUMIN 4.1 GM/DL (3.2-4.5); BILIRUBIN,TOTAL 1.5 MG/DL (0.1-1.0); CALCIUM 9.4 MG/DL (8.5-10.1); CREATININE SERUM 1.25 MG/DL (0.60-1.30); MAGNESIUM 2.2 MG/DL (1.8-2.4); POTASSIUM 3.8 MMOL/L (3.6-5.0); TOTAL PROTEIN 7.4 GM/DL (6.4-8.2)
[2018-03-18 12:23] LABS: TSH (THYROID ANALYZER) 6.13 UIU/ML (0.35-4.94)
--- NOTE | 2018-03-18 13:03 | Diagnostic Imaging Report ---
PROCEDURE: CT abdomen and pelvis without contrast. TECHNIQUE: Multiple contiguous axial images were obtained through the abdomen and pelvis without the use of intravenous contrast. INDICATION: Left lower quadrant abdominal pain. Comparison is made with prior CT from 05/11/2013. FINDINGS: Imaging through the lung bases does show trace left and small right pleural effusion. Liver is unremarkable. The gallbladder appears to be stone filled. No biliary ductal dilatation is seen. Pancreas and spleen are unremarkable. No adrenal mass is identified. No renal calculi or hydronephrosis is seen. Aorta as well as the renal and mesenteric vasculature are diffusely calcified. The small and large bowel loops are normal caliber. There is no ascites. No definite inflammatory process in the abdomen is seen. The bladder is unremarkable. 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 IMPRESSION: 1. Bilateral pleural effusions, right greater. 2. Cholelithiasis. Gallbladder ultrasound may be useful for further evaluation. 3. No other significant abnormality in the abdomen or pelvis is identified. Dictated by: Dictated on workstation # [id number]
[2018-03-18 13:09] LABS: FREE T4 (FREE THYROXINE) 0.94 NG/DL (0.70-1.48)
--- NOTE | 2018-03-18 13:10 | Diagnostic Imaging Report ---
INDICATION: Abdominal pain and nausea. PA and lateral chest obtained at 1:43 p.m. and compared with 05/11/13. FINDINGS: There is poststernotomy change with mild cardiomegaly. There is mild central vascular prominence. There are increased basilar markings which appear chronic. There is no new consolidation or pneumothorax or pleural fluid. IMPRESSION: Cardiomegaly and poststernotomy change. Chronic appearing increased basilar markings with no acute infiltrate or pneumothorax or pleural fluid. Dictated by: Dictated on workstation # [id number]
[2018-03-18] MEDS ORDERED: BUME2TAB3 PO (13:11)
[2018-03-18] MEDS ORDERED: INSU100I23 SC (13:11)
[2018-03-18] MEDS ORDERED: AMMO385C5 TOP (13:22)
[2018-03-18] MEDS ORDERED: DIPH1TAB25 PO (13:22)
[2018-03-18] MEDS ORDERED: CLOP75TA69 PO (13:22)
[2018-03-18] MEDS ORDERED: INSU100I29 SQ (13:22)
[2018-03-18] MEDS ORDERED: LIDO700A45 TOP (13:22)
[2018-03-18] MEDS ORDERED: LIDOCAINE UROJET 2% GEL 10 ML PKG ONE (14:17)
--- NOTE | 2018-03-18 15:27 | ED Abdominal Pain ---
General Chief Complaint: Abdominal/GI Problems Stated Complaint: LOWER LEFT SIDE PAIN Nursing Triage Note: PT AMBULATES TO ROOM 4 PT CO OF ABD PAIN SINCE YESTERDAY, CO L SIDE ABD RATES 10/10, PT VERY TENDER TO PALPATION. PT HAS NAUSEA. Sepsis Screen: No Definite Risk Source of Information: Patient, Old Records Exam Limitations: No Limitations History of Present Illness Date Seen by Provider: Mar 18, 2018 Time Seen by Provider: 11:10 Initial Comments This 73-year-old gentleman presents to the emergency room with complaints of pain in the left flank that started yesterday. It is fairly constant and rather severe. He denies any urinary changes. He reports frequent diarrhea and loose stools but no acute change. He has had nausea with this pain but denies vomiting. He has pain even with inspiration. He has no history of renal stones. He is a diabetic with history of coronary artery disease, valvular disease, and chronic shortness of air. He is afebrile. Patient was noted to be in atrial fibrillation. He is not anticoagulated due to history of retinal hemorrhages on anticoagulation. Allergies and Home Medications Allergies Coded Allergies: Iodinated Contrast- Oral and IV Dye (Unverified Allergy, Mild, RASH, ) Home Medications Amiodarone HCl 200 Mg Tablet, 200 MG PO HS, (Reported) LAST FILLED #90 05-07-17 Ammonium Lactate 385 Gm Cream..g., TOP BID, (Reported) APPLY TO FEET Bumetanide 2 Mg Tablet, 2 MG PO DAILY, (Reported) Ciprofloxacin HCl 500 Mg Tablet, 500 MG PO BID Prescribed by: KESHIA BUSH on 03/18/18 1547 Clopidogrel Bisulfate 75 Mg Tablet, 75 MG PO WEEK, (Reported) LAST FILLED #90 17 Diphenoxylate HCl/Atropine 1 Each Tablet, 1 TAB PO QID PRN for DIARRHEA, ( Reported) Hydrocodone/Acetaminophen 1 Each Tablet, 1 EACH PO Q6H PRN for PAIN-MODERATE TO SEVERE Prescribed by: KESHIA BUSH on 03/18/18 1600 Insulin Detemir 100 Unit/1 Ml Insuln.pen, 15 UNIT SQ HS, (Reported) Insulin Lispro 100 Unit/1 Ml Insuln.pen, 6-20 UNITS SC AC, (Reported) Lidocaine 1 Each Adh..patch, 0.33 PATCH TOP DAILY PRN for PAIN, (Reported) USES 1/3 OF A PATCH NEEDED Metronidazole 500 Mg Tablet, 500 MG PO TID Prescribed by: KESHIA BUSH on 03/18/18 1600 Patient Home Medication List Home Medication List Reviewed: Yes Review of Systems Constitutional: no symptoms reported EENTM: No Symptoms Reported Respiratory: See HPI Cardiovascular: See HPI Gastrointestinal: See HPI Genitourinary: No Symptoms Reported Musculoskeletal: no symptoms reported Skin: no symptoms reported Psychiatric/Neurological: No Symptoms Reported Endocrine: No Symptoms Reported Hematologic/Lymphatic: No Symptoms Reported Past Wttucey-Easwvj-Egleqk Hx Past Med/Social Hx: Reviewed and Corrections made Patient Social History Alcohol Use: Denies Use Recreational Drug Use: No Smoking Status: Never a Smoker 2nd Hand Smoke Exposure: No Recent Foreign Travel: No Contact w/Someone Who Travel: No Recent Infectious Disease Expo: No Recent Hopitalizations: No Physical Abuse: No Sexual Abuse: No Immunizations Up To Date Tetanus Booster (TDap): Less than 5yrs Seasonal Allergies Seasonal Allergies: No Past Medical History Surgeries: Yes (eye surg, ear surg, partial right great toe amputation, penile implant, ) CABG, Coronary Stent, Eye Surgery, Prostatectomy Respiratory: No Cardiac: Yes (quad bypass) Coronary Artery Disease, Hypertension, Valvular Heart Disease Neurological: Yes Neuropathy Reproductive Disorders: No Genitourinary: No Gastrointestinal: Yes Diverticulosis, Chronic Diarrhea, Gall Bladder Disease Musculoskeletal: Yes (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 Retinal hemorrhages while anticoagulated) Cataract Hearing Impairment: Hard of Hearing Cancer: No Psychosocial: No Nursing Suicide Risk Score: 0 Integumentary: Yes (cellulitis left leg w/this admit 02/14/17) Recent Skin Changes Blood Disorders: No Family Medical History Reviewed Nursing Family Hx Diabetes mellitus 19 MOTHER G8 SISTER FH: breast cancer 19 MOTHER FH: emphysema 19 FATHER FH: prostate cancer 19 FATHER FH: stroke son Myocardial infarction son Diabetes, Stroke Physical Exam Vital Signs Vital Signs - First Documented 03/18/18 03/18/18 11:20 16:40 Temp 97.5 Pulse 84 Resp 18 B/P (MAP) 155/90 (111) Pulse Ox 97 O2 Delivery Room Air Capillary Refill : Less Than 3 Seconds Height/Weight/BMI Height: 6'3.00" Weight: 190lbs. 0.0oz. 86.954659bi; 21.5 BMI Method:Stated General Appearance: WD/WN, mild distress HEENT: PERRL/EOMI, normal ENT inspection Neck: normal inspection Respiratory: lungs clear, normal breath sounds, no respiratory distress, no accessory muscle use Cardiovascular: no edema, no murmur, irregularly irregular Progress/Results/Core Measures Results/Orders Lab Results Laboratory Tests Test 03/18/18 11:20 03/18/18 11:30 Range/Units White Blood Count 10.7 4.3-11.0 10^3/uL Red Blood Count 4.31 L 4.35-5.85 10^6/uL Hemoglobin 12.3 L 13.3-17.7 G/DL Hematocrit 35 L 40-54 % Mean Corpuscular Volume 81 80-99 FL Mean Corpuscular Hemoglobin 29 25-34 PG Mean Corpuscular Hemoglobin Concent 35 32-36 G/DL Red Cell Distribution Width 15.9 H 10.0-14.5 % Platelet Count 197 130-400 10^3/uL Mean Platelet Volume 10.2 7.4-10.4 FL Neutrophils (%) (Auto) 74 42-75 % Lymphocytes (%) (Auto) 12 12-44 % Monocytes (%) (Auto) 13 H 0-12 % Eosinophils (%) (Auto) 1 0-10 % Basophils (%) (Auto) 0 0-10 % Neutrophils # (Auto) 8.0 H 1.8-7.8 X 10^3 Lymphocytes # (Auto) 1.3 1.0-4.0 X 10^3 Monocytes # (Auto) 1.4 H 0.0-1.0 X 10^3 Eosinophils # (Auto) 0.1 0.0-0.3 10^3/uL Basophils # (Auto) 0.0 0.0-0.1 10^3/uL Sodium Level 140 135-145 MMOL/L Potassium Level 3.8 3.6-5.0 MMOL/L Chloride Level 100 98-107 MMOL/L Carbon Dioxide Level 30 21-32 MMOL/L Anion Gap 10 5-14 MMOL/L Blood Urea Nitrogen 17 7-18 MG/DL Creatinine 1.25 0.60-1.30 MG/DL Estimat Glomerular Filtration Rate 56 BUN/Creatinine Ratio 14 Glucose Level 167 H 70-105 MG/DL Calcium Level 9.4 8.5-10.1 MG/DL Magnesium Level 2.2 1.8-2.4 MG/DL Total Bilirubin 1.5 H 0.1-1.0 MG/DL Aspartate Amino Transf (AST/SGOT) 27 5-34 U/L Alanine Aminotransferase (ALT/SGPT) 27 0-55 U/L Alkaline Phosphatase 60 40-136 U/L C-Reactive Protein High Sensitivity 7.46 H 0.00-0.50 MG/DL Total Protein 7.4 6.4-8.2 GM/DL Albumin 4.1 3.2-4.5 GM/DL Lipase 4 L 8-78 U/L Free Thyroxine 0.94 0.70-1.48 NG/DL TSH [place] Testing 6.13 H 0.35-4.94 UIU/ML Urine Color YELLOW Urine Clarity CLEAR Urine pH 6.5 5-9 Urine Specific Carter 1.010 L 1.016-1.022 Urine Protein NEGATIVE NEGATIVE Urine Glucose (UA) 1+ H NEGATIVE Urine Ketones NEGATIVE NEGATIVE Urine Nitrite NEGATIVE NEGATIVE Urine Bilirubin NEGATIVE NEGATIVE Urine Urobilinogen NORMAL NORMAL MG/DL Urine Leukocyte Esterase NEGATIVE NEGATIVE Urine RBC (Auto) NEGATIVE NEGATIVE Urine RBC NONE /HPF Urine WBC NONE /HPF Urine Squamous Epithelial Cells NONE /HPF Urine Crystals NONE /LPF Urine Bacteria NEGATIVE /HPF Urine Casts NONE /LPF Urine Mucus NEGATIVE /LPF Urine Culture Indicated NO My Orders Orders - KESHIA JOINER MD Ua Culture If Indicated (03/18/18 11:10) Cbc With Automated Diff (03/18/18 11:40) Comprehensive Metabolic Panel (03/18/18 11:40) Hs C Reactive Protein (03/18/18 11:40) Lipase (03/18/18 11:40) Magnesium (03/18/18 11:40) Thyroid Analyzer (03/18/18 11:40) Saline Lock/Iv-Start (03/18/18 11:40) Ekg Tracing (03/18/18 11:40) Monitor-Rhythm Ecg Trace Only (03/18/18 11:40) Chest Pa/Lat (2 View) (03/18/18 11:40) Fentanyl Injection (Sublimaze Injection (03/18/18 11:45) Ondansetron Injection (Zofran Injectio (03/18/18 11:45) Ct Abdomen/Pelvis Wo (03/18/18 12:18) Free T4 (Free Thyroxine) (03/18/18 11:20) Bladder Scan (03/18/18 13:49) Jaquez Cath (03/18/18 14:11) Lidocaine 2% (Urojet) (Xylocaine Urojet) (03/18/18 14:17) Medications Given in ED Current Medications Medications Dose Ordered Sig/Dajuan Route Start Time Stop Time Status Last Admin Dose Admin Fentanyl Citrate 50 mcg ONCE ONCE IVP 03/18/18 11:45 03/18/18 11:46 DC 03/18/18 11:56 50 MCG Lidocaine HCl 10 ml STK-MED ONCE .ROUTE 03/18/18 14:17 03/18/18 14:20 DC 03/18/18 14:30 10 ML Ondansetron HCl 4 mg ONCE ONCE IVP 03/18/18 11:45 03/18/18 11:46 DC 03/18/18 11:56 4 MG Vital Signs/I&O 03/18/18 03/18/18 11:20 16:40 Temp 97.5 Pulse 84 78 Resp 18 18 B/P (MAP) 155/90 (111) 122/71 Pulse Ox 97 95 O2 Delivery Room Air Blood Pressure Mean: 111 Progress Progress Note : Progress Note No specific etiology for patient's left-sided abdominal pain was found. He was treated with Zofran and fentanyl. Noncontrast CT was performed due to patient' s iodine allergy. Mild pleural effusions were noted bilaterally. Patient did have a significant amount of urine in his bladder post void noted on the CT scan. A catheter was placed and patient drained a significant amount of post void urine, somewhere around 600 mL. This however did not alleviate his pain. Patient does have a history of diverticulosis and wonders if he may be developing early diverticulitis. Because of atrial fibrillation with no anticoagulation, mesenteric embolism or ischemia was considered. However, CT scan was discussed at length with Dr. Vasques. Although there was no contrast used on the study, no secondary signs of ischemia were identified. Case was discussed with Dr. Burleson who will follow with the patient in the clinic. Patient was given return precautions. His contacted Dr. Agosto's office and they plan to follow-up in the next few days. Patient did not want the Jaquez catheter to remain in place. It was removed prior to dismissal. Initial ECG Impression Date: Mar 18, 2018 Initial ECG Impression Time: 11:49 Initial ECG Rate: 78 Initial ECG Rhythm: A Fib/Flutter Initial ECG Impression: Atrial Fibrillation Comment Atrial fibrillation with no acute ST elevation or depression. Premature complexes noted. Rate controlled. Diagnostic Imaging Diagonstic Imaging: Xray Plain Films/CT/US/NM/MRI: chest Comments Chest x-ray viewed by me and report reviewed. See report below: NAME: [facility] REC#: [id number] PT STATUS: REG ER : 1945 PHYSICIAN: KESHIA JOINER MD ADMIT DATE: 03/18/18/ER Signed Date of Exam: 03/18/18 CHEST PA/LAT (2 VIEW) INDICATION: Abdominal pain and nausea. PA and lateral chest obtained at 1:43 p.m. and compared with 05/11/13. FINDINGS: There is poststernotomy change with mild cardiomegaly. There is mild central vascular prominence. There are increased basilar markings which appear chronic. There is no new consolidation or pneumothorax or pleural fluid. IMPRESSION: Cardiomegaly and poststernotomy change. Chronic appearing increased basilar markings with no acute infiltrate or pneumothorax or pleural fluid. Dictated by: Dictated on workstation # [id number] Dict: 03/18/18 1306 Trans: 03/18/18 1410 Interpreted by: TESS LIU MD Electronically signed by: TESS LIU MD 03/18/18 1410 Diagonstic Imaging: CT Plain Films/CT/US/NM/MRI: abdomen, pelvis Comments CT abdomen and pelvis viewed by me and report reviewed. Discussed with the radiologist. See report below: NAME: [facility] REC#: [id number] PT STATUS: REG ER : 1945 PHYSICIAN: KESHIA JOINER MD ADMIT DATE: 03/18/18/ER Signed Date of Exam: 03/18/18 CHEST PA/LAT (2 VIEW) INDICATION: Abdominal pain and nausea. PA and lateral chest obtained at 1:43 p.m. and compared with 05/11/13. FINDINGS: There is poststernotomy change with mild cardiomegaly. There is mild central vascular prominence. There are increased basilar markings which appear chronic. There is no new consolidation or pneumothorax or pleural fluid. IMPRESSION: Cardiomegaly and poststernotomy change. Chronic appearing increased basilar markings with no acute infiltrate or pneumothorax or pleural fluid. Dictated by: Dictated on workstation # [id number] Dict: 03/18/18 1306 Trans: 03/18/18 1410 Interpreted by: TESS LIU MD Electronically signed by: TESS LIU MD 03/18/18 1410 Departure Impression Primary Impression: Left sided abdominal pain of unknown cause Additional Impressions: Urinary retention Pleural effusion Nausea Disposition: HOME, SELF-CARE Condition: Improved Departure-Patient Inst. Referrals: BEVERLY BURLESON MD (PCP/Family) Primary Care Physician Patient Instructions: Urinary Retention, Acute Abdomen (Belly Pain), Adult (DC) Add. Discharge Instructions: Follow-up with Dr. Burleson within the next week. Follow-up with Dr. Agosto as soon as possible, preferably in the next [address] Agosto about starting Flomax. Is very important to return to the emergency room if symptoms are worsening or if you develop new symptoms such as fever over 100. Complete the entire course of antibiotics as prescribed. All discharge instructions reviewed with patient and/or family. Voiced understanding. Scripts Metronidazole (Flagyl) 500 Mg Tablet 500 MG PO TID, #20 TAB Prov: KESHIA JOINER MD 03/18/18 Hydrocodone/Acetaminophen (Hydrocodone-Acetamin 5-325 mg) 1 Each Tablet 1 EACH PO Q6H PRN for PAIN-MODERATE TO SEVERE, #14 TAB Prov: KESHIA JOINER MD 03/18/18 Ciprofloxacin HCl (Cipro) 500 Mg Tablet 500 MG PO BID, #14 TAB Prov: KESHIA JOINER MD 03/18/18 Copy Copies To 1: BEVERLY BURLESON MD, JOSHUA T MD Mar 18, 2018 15:27
[2018-03-18] MEDS ORDERED: CIPR-225 PO (15:47)
[2018-03-18] MEDS ORDERED: METR500T PO (16:00)
[2018-03-18] MEDS ORDERED: HYDR-3812 PO (16:00)
[2018-03-18 16:40] VITALS: BP 122/71
--- OUTSIDE RECORDS SUMMARY | 2018-03-19 00:31 | XMS REPORT | Clinical Summary ---
Author Author [facility] Organization [facility] Address Unknown Phone Unavailable Care Team Providers Care Staff Accountant Name Role Phone Kevin Perrin MD Unavailable [...] in the Health Information Management department at [phone] for further assistance in locating additional records.[facility] Allergies Active Allergy Reactions Severity Noted [...] antibiotics. Non-proliferative diabetic retinopathy, mild, right eye ([facility]) 09/03/2013 Last Assessment & Plan: - no significant DME on exam today. 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
== END 2018-03-18 16:40 | disposition home or self-care (01) ==
LOC: EDUNIT# 10:50 → ER 10:52
DX: R10.32 Left lower quadrant pain (principal); R33.9 Retention of urine, unspecified; J90 Pleural effusion, not elsewhere classified; R11.0 Nausea; E11.9 Type 2 diabetes mellitus without complications; I25.10 Atherosclerotic heart disease of native coronary artery without angina pectoris; I10 Essential (primary) hypertension; I48.91 Unspecified atrial fibrillation; Z89.411 Acquired absence of right great toe; Z95.1 Presence of aortocoronary bypass graft; Z87.19 Personal history of other diseases of the digestive system; Z80.3 Family history of malignant neoplasm of breast; Z80.42 Family history of malignant neoplasm of prostate; Z82.49 Family history of ischemic heart disease and other diseases of the circulatory system; Z95.5 Presence of coronary angioplasty implant and graft; Z90.79 Acquired absence of other genital organ(s); Z91.041 Radiographic dye allergy status; Z79.02 Long term (current) use of antithrombotics/antiplatelets; Z79.4 Long term (current) use of insulin
CPT/HCPCS: 36415; 71046; 74176; 80053; 81000; 83690; 83735; 84439; 84443; 85025; 86141; 93005; 93041; 96374; 96375

== ENCOUNTER 2018-03-20 11:31 | Emergency (ER) | payer MEDICARE, OTHER ==
[~2018-03-20] VITALS: Ht 190.5 cm; Wt 86.2 kg
[~2018-03-20 11:31] MED LIST changes: +AMMO385C5 TOP; +BUME2TAB3 PO; +CIPR-225 PO; +CLOP75TA69 PO; +DIPH1TAB25 PO; +HYDR-3812 PO; +INSU100I23 SC; +INSU100I29 SQ; +LIDO700A45 TOP; +METR500T PO
[2018-03-20 12:41] LABS: BASOPHILS # (AUTO) 0.1 10^3/uL (0.0-0.1); BASOPHILS % (AUTO) 1 % (0-10); BILIRUBIN,URINE NEGATIVE (NEGATIVE); CLARITY,URINE CLEAR; COLOR,URINE YELLOW; EOSINOPHILS # (AUTO) 0.1 10^3/uL (0.0-0.3); EOSINOPHILS % (AUTO) 1 % (0-10); GLUCOSE, URINE (UA) 3+ (NEGATIVE); HEMATOCRIT 36 % (40-54); HEMOGLOBIN 12.1 G/DL (13.3-17.7); KETONES,URINE NEGATIVE (NEGATIVE); LEUKOCYTE ESTERASE ,URINE 1+ (NEGATIVE); LYMPHOCYTES # (AUTO) 0.7 X 10^3 (1.0-4.0); LYMPHOCYTES % (AUTO) 7 % (12-44); MEAN CORPUSCULAR HEMOGLOBIN 28 PG (25-34); MEAN CORPUSCULAR HGB CONC 34 G/DL (32-36); MEAN CORPUSCULAR VOLUME 83 FL (80-99); MEAN PLATELET VOLUME 10.4 FL (7.4-10.4); MONOCYTES # (AUTO) 0.8 X 10^3 (0.0-1.0); MONOCYTES % (AUTO) 8 % (0-12); NEUTROPHILS # (AUTO) 8.7 X 10^3 (1.8-7.8); NEUTROPHILS % (AUTO) 83 % (42-75); NITRITE,URINE NEGATIVE (NEGATIVE); PH,URINE 6 (5-9); PLATELET COUNT 234 10^3/uL (130-400); PROTEIN,URINE 2+ (NEGATIVE); RED BLOOD COUNT 4.31 10^6/uL (4.35-5.85); RED CELL DISTRIBUTION WIDTH 15.6 % (10.0-14.5); UROBILINOGEN,URINE NORMAL (NORMAL); WHITE BLOOD COUNT 10.4 10^3/uL (4.3-11.0)
[2018-03-20] MEDS ORDERED: IOHEXOL 350 MG/ML 150 ML (OMNIPAQUE 350) VIAL IV ONE (12:45)
[2018-03-20] MEDS ORDERED: RECEIVED CONTRAST (Hold Metformin) IV SCH (12:45)
[2018-03-20] MEDS ORDERED: NS 250 ML (IVPB) BAG IV ONE (12:45)
[2018-03-20] MEDS ORDERED: diphenhydrAMINE 50 MG/ML INJ (BENADRYL) IVP ONE (12:45)
[2018-03-20] MEDS ORDERED: methylPREDNISolone 125 MG (Solu-MEDROL) VIAL IVP ONE (12:45)
[2018-03-20 12:48] LABS: BACTERIA,URINE NEGATIVE /HPF
[2018-03-20 12:53] LABS: BAND NEUTROPHILS 0 %; BASOPHILS % (MANUAL) 1 %; EOSINOPHILS % (MANUAL) 0 %; LYMPHOCYTES % (MANUAL) 9 %; MONOCYTES % (MANUAL) 4 %; NEUTROPHILS % (MANUAL) 86 %
[2018-03-20 12:54] LABS: ALBUMIN 3.9 GM/DL (3.2-4.5); BILIRUBIN,TOTAL 0.9 MG/DL (0.1-1.0); CALCIUM 9.5 MG/DL (8.5-10.1); CREATININE SERUM 1.31 MG/DL (0.60-1.30); POTASSIUM 4.5 MMOL/L (3.6-5.0); RBC MORPH NORMAL; TOTAL PROTEIN 7.2 GM/DL (6.4-8.2)
--- NOTE | 2018-03-20 14:25 | Diagnostic Imaging Report ---
INDICATION: Continued left-sided abdominal pain. TECHNIQUE: Axial imaging through the chest, abdomen, and pelvis was performed after the administration of intravenous contrast. CT angiography protocol through the chest was performed with multiplanar, 3D, and MIP reformations. COMPARISON: Noncontrast CT abdomen/pelvis study from 03/18/2018. FINDINGS: CTA CHEST: Evaluation of the pulmonary arterial system is without evidence of thromboembolism. No filling defects are seen within the central, lobar, or segmental branches. The thoracic aorta is of normal caliber. No dissection is seen. No pericardial effusion is identified. There continues to be a small right pleural effusion. The left-sided pleural fluid has resolved. No axillary lymphadenopathy is seen. No definite hilar lymphadenopathy is identified. There is some soft tissue fullness in the subcarinal region, suspicious for adenopathy, measuring 2.9 x 2.0 cm. No parenchymal mass is seen. There is some atelectasis in the lingula. No significant infiltrate is identified. IMPRESSION: 1. No evidence of pulmonary embolism or thoracic aortic dissection. 2. Small right pleural effusion, stable. Trace left pleural effusion has resolved. 3. There is subcarinal fullness, suspicious for subcarinal lymphadenopathy. This has increased since the prior CT chest study from 05/11/2013. A PET/CT study would be useful for further evaluation. CT ABDOMEN/PELVIS: The abdominal aorta is of normal caliber. No dissection is seen. The aorta is widely patent. The celiac, SMA, and BINA are patent. There is some calcified plaque at the origin of the BINA. No secondary signs of mesenteric ischemia are identified. There is no bowel wall thickening or pneumatosis identified. No gas within the SMA or SMV is detected. No portal venous gas is identified. Note is made that the splenic artery is markedly calcified. The distal one/third of the splenic artery does show central low density, consistent with thrombus. This extends to the splenic hilum. The spleen does demonstrate areas of circumscribed low density, consistent with splenic infarcts. The liver is unremarkable. The gallbladder is stone filled. No biliary ductal dilatation is seen. The pancreas is unremarkable. No adrenal mass is seen. The kidneys are unremarkable. There is no ascites. 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 Note is made of a short segment dissection in the right common femoral artery. The bladder is unremarkable. IMPRESSION: 1. Cholelithiasis. 2. No evidence of mesenteric ischemia. 3. 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 Dictated by: Dictated on workstation # [id number]
[2018-03-20] MEDS ORDERED: TAMS0.4C98 PO (14:51)
--- NOTE | 2018-03-20 14:51 | ED Abdominal Pain ---
General Chief Complaint: Abdominal/GI Problems Stated Complaint: LOWER LEFT SIDE PAIN FALL Nursing Triage Note: PT AMBULATES TO ROOM 7 PT CO OF ABD AND FALL THIS AM. PT VERY GROGGY, STATES HAS TAKEN PAIN MEDS AT 0500 THIS AM, PT HAS APPT IN A COUPLE WEEKS FOR COLONOSCOPY W DR HERRING IN [place]. PT STATES FELL THIS AM DENIES HITTING HEAD, HAS ABRASION TO L HAND. PT STATES CONT TO HAVE ABD PAIN IN L SIDE Sepsis Screen: No Definite Risk Source of Information: Patient Exam Limitations: No Limitations History of Present Illness Date Seen by Provider: Mar 20, 2018 Time Seen by Provider: 12:25 Initial Comments This patient presents to the emergency room with primary complaint of left sided abdominal pain. He states it is worse than when he was seen in the emergency room 2 days ago. At that time a CT scan without contrast was performed due to his iodine contrast allergy. No significant abnormalities were found to explain his abdominal pain. Patient did have a mildly elevated CRP at that time. He wondered if he was experiencing some early diverticulitis. He was treated accordingly with Cipro and Flagyl. Pain has worsened despite this intervention. He has been groggy the past couple of days , possibly secondary to hydrocodone use. Today he had a fall resulting in some bruising of the left upper extremity but no other acute injury. He denies any loss of consciousness, head injury, or neck injury. Patient also complains of urinary difficulties. A Jaquez catheter was placed at his last ER visit due to retention of greater than 600 mL of urine. Patient did not want to keep the catheter in. It was removed prior to dismissal. Patient was to follow-up with Dr. Agosto but has had trouble receiving communication back from their office. Patient has atrial fibrillation but is not anticoagulated due to history of retinal hemorrhages. Allergies and Home Medications Allergies Coded Allergies: Iodinated Contrast- Oral and IV Dye (Unverified Allergy, Mild, RASH, ) Home Medications Amiodarone HCl 200 Mg Tablet, 200 MG PO HS, (Reported) LAST FILLED #90 05-07-17 Ammonium Lactate 385 Gm Cream..g., TOP BID, (Reported) APPLY TO FEET Bethanechol Chloride 25 Mg Tablet, 25 MG PO QIDACHS Prescribed by: KESHIA BUSH on 03/20/18 1513 Bumetanide 2 Mg Tablet, 2 MG PO DAILY, (Reported) Ciprofloxacin HCl 500 Mg Tablet, 500 MG PO BID Prescribed by: KESHIA BUSH on 03/18/18 1547 Clopidogrel Bisulfate 75 Mg Tablet, 75 MG PO WEEK, (Reported) LAST FILLED #90 5-24-17 Diphenoxylate HCl/Atropine 1 Each Tablet, 1 TAB PO QID PRN for DIARRHEA, ( Reported) Hydrocodone/Acetaminophen 1 Each Tablet, 1 EACH PO Q6H PRN for PAIN-MODERATE TO SEVERE Prescribed by: KESHIA BUSH on 03/18/18 1600 Insulin Detemir 100 Unit/1 Ml Insuln.pen, 15 UNIT SQ HS, (Reported) Insulin Lispro 100 Unit/1 Ml Insuln.pen, 6-20 UNITS SC AC, (Reported) Lidocaine 1 Each Adh..patch, 0.33 PATCH TOP DAILY PRN for PAIN, (Reported) USES 1/3 OF A PATCH NEEDED Metronidazole 500 Mg Tablet, 500 MG PO TID Prescribed by: KESHIA BUSH on 03/18/18 1600 Tamsulosin HCl 0.4 Mg Cap, 0.4 MG PO DAILY Prescribed by: KESHIA BUSH on 03/20/18 1451 Patient Home Medication List Home Medication List Reviewed: Yes Review of Systems Constitutional: see HPI EENTM: No Symptoms Reported Respiratory: No Symptoms Reported Cardiovascular: See HPI Gastrointestinal: See HPI Genitourinary: See HPI Musculoskeletal: see HPI Skin: see HPI Psychiatric/Neurological: See HPI Endocrine: No Symptoms Reported Hematologic/Lymphatic: No Symptoms Reported Past Tizsmbm-Nxtwcj-Bayzio Hx Past Med/Social Hx: Reviewed and Corrections made Patient Social History Alcohol Use: Denies Use Recreational Drug Use: No Smoking Status: Never a Smoker 2nd Hand Smoke Exposure: No Recent Foreign Travel: No Contact w/Someone Who Travel: No Recent Infectious Disease Expo: No Recent Hopitalizations: No Physical Abuse: No Sexual Abuse: No Immunizations Up To Date Tetanus Booster (TDap): Less than 5yrs Seasonal Allergies Seasonal Allergies: No Past Medical History Surgeries: Yes (eye surg, ear surg, partial right great toe amputation, penile implant, ) Bladder Surgery (TURP), CABG, Coronary Stent, Eye Surgery, Prostatectomy Respiratory: No Cardiac: Yes (quad bypass) Atrial Fibrillation, Coronary Artery Disease, Hypertension, Valvular Heart Disease Neurological: Yes Neuropathy Reproductive Disorders: No Genitourinary: Yes (urinary obstruction) Prostate Problems Gastrointestinal: Yes Diverticulosis, Chronic Diarrhea, Gall Bladder Disease Musculoskeletal: Yes (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 Retinal hemorrhages while anticoagulated) Cataract Hearing Impairment: Hard of Hearing Cancer: No Psychosocial: No Nursing Suicide Risk Score: 0 Integumentary: Yes (cellulitis left leg w/this admit 02/14/17) Recent Skin Changes Blood Disorders: No Family Medical History Reviewed Nursing Family Hx Diabetes mellitus 19 MOTHER G8 SISTER FH: breast cancer 19 MOTHER FH: emphysema 19 FATHER FH: prostate cancer 19 FATHER FH: stroke son Myocardial infarction son Diabetes, Stroke Physical Exam Vital Signs Vital Signs - First Documented 03/20/18 11:45 Temp 97.1 Pulse 86 Resp 18 B/P (MAP) 158/84 (108) Pulse Ox 88 O2 Delivery Nasal Cannula O2 Flow Rate 2.00 Capillary Refill : Less Than 3 Seconds Height/Weight/BMI Height: 6'3.00" Weight: 190lbs. 0.0oz. 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 as tested, no motor/sensory deficits, alert, normal mood/affect, oriented x 3 Skin: normal color, warm/dry Progress/Results/Core Measures Results/Orders Lab Results Laboratory Tests Test 03/20/18 12:10 Range/Units White Blood Count 10.4 4.3-11.0 10^3/uL Red Blood Count 4.31 L 4.35-5.85 10^6/uL Hemoglobin 12.1 L 13.3-17.7 G/DL Hematocrit 36 L 40-54 % Mean Corpuscular Volume 83 80-99 FL Mean Corpuscular Hemoglobin 28 25-34 PG Mean Corpuscular Hemoglobin Concent 34 32-36 G/DL Red Cell Distribution Width 15.6 H 10.0-14.5 % Platelet Count 234 130-400 10^3/uL Mean Platelet Volume 10.4 7.4-10.4 FL Neutrophils (%) (Auto) 83 H 42-75 % Lymphocytes (%) (Auto) 7 L 12-44 % Monocytes (%) (Auto) 8 0-12 % Eosinophils (%) (Auto) 1 0-10 % Basophils (%) (Auto) 1 0-10 % Neutrophils # (Auto) 8.7 H 1.8-7.8 X 10^3 Lymphocytes # (Auto) 0.7 L 1.0-4.0 X 10^3 Monocytes # (Auto) 0.8 0.0-1.0 X 10^3 Eosinophils # (Auto) 0.1 0.0-0.3 10^3/uL Basophils # (Auto) 0.1 0.0-0.1 10^3/uL Neutrophils % (Manual) 86 % Lymphocytes % (Manual) 9 % Monocytes % (Manual) 4 % Eosinophils % (Manual) 0 % Basophils % (Manual) 1 % Band Neutrophils 0 % Blood Morphology Comment NORMAL Urine Color YELLOW Urine Clarity CLEAR Urine pH 6 5-9 Urine Specific Mclean 1.020 1.016-1.022 Urine Protein 2+ H NEGATIVE Urine Glucose (UA) 3+ H NEGATIVE Urine Ketones NEGATIVE NEGATIVE Urine Nitrite NEGATIVE NEGATIVE Urine Bilirubin NEGATIVE NEGATIVE Urine Urobilinogen NORMAL NORMAL MG/DL Urine Leukocyte Esterase 1+ H NEGATIVE Urine RBC (Auto) NEGATIVE NEGATIVE Urine RBC NONE /HPF Urine WBC 2-5 /HPF Urine Squamous Epithelial Cells 2-5 /HPF Urine Crystals NONE /LPF Urine Bacteria NEGATIVE /HPF Urine Casts NONE /LPF Urine Mucus NEGATIVE /LPF Urine Culture Indicated NO Sodium Level 136 135-145 MMOL/L Potassium Level 4.5 3.6-5.0 MMOL/L Chloride Level 99 98-107 MMOL/L Carbon Dioxide Level 25 21-32 MMOL/L Anion Gap 12 5-14 MMOL/L Blood Urea Nitrogen 24 H 7-18 MG/DL Creatinine 1.31 H 0.60-1.30 MG/DL Estimat Glomerular Filtration Rate 53 BUN/Creatinine Ratio 18 Glucose Level 297 H 70-105 MG/DL Calcium Level 9.5 8.5-10.1 MG/DL Total Bilirubin 0.9 0.1-1.0 MG/DL Aspartate Amino Transf (AST/SGOT) 19 5-34 U/L Alanine Aminotransferase (ALT/SGPT) 19 0-55 U/L Alkaline Phosphatase 45 40-136 U/L C-Reactive Protein High Sensitivity 5.66 H 0.00-0.50 MG/DL Total Protein 7.2 6.4-8.2 GM/DL Albumin 3.9 3.2-4.5 GM/DL My Orders Orders - KESHIA JOINER MD Cbc With Automated Diff (03/20/18 12:25) Comprehensive Metabolic Panel (03/20/18 12:25) Hs C Reactive Protein (03/20/18 12:25) Ua Culture If Indicated (03/20/18 12:25) [facility] [place] Chest/Noang Abd-Pelv W (03/20/18 12:32) Diphenhydramine Injection (Benadryl Inje (03/20/18 12:45) Methylprednisolone Sod Succ (Solu-Medrol (03/20/18 12:45) Manual Differential (03/20/18 12:10) Iohexol Injection (Omnipaque 350 Mg/Ml 1 (03/20/18 12:45) Ns (Ivpb) (Sodium Chloride 0.9%) (03/20/18 12:45) Contrast Received (Contrast Received) (03/20/18 12:45) Jaquez Cath (03/20/18 14:38) Medications Given in ED Current Medications Medications Dose Ordered Sig/Dajuan Route Start Time Stop Time Status Last Admin Dose Admin Diphenhydramine HCl 25 mg ONCE ONCE IVP 03/20/18 12:45 03/20/18 12:46 DC 03/20/18 13:17 25 MG Iohexol 125 ml ONCE ONCE IV 03/20/18 12:45 03/20/18 12:46 DC 03/20/18 13:31 125 ML Methylprednisolone Sodium Succinate 125 mg ONCE ONCE IVP 03/20/18 12:45 03/20/18 12:46 DC 03/20/18 13:19 125 MG Sodium Chloride 250 ml ONCE ONCE IV 03/20/18 12:45 03/20/18 12:46 DC 03/20/18 13:31 80 ML Vital Signs/I&O 03/20/18 03/20/18 11:45 16:00 Temp 97.1 Pulse 86 89 Resp 18 18 B/P (MAP) 158/84 (108) 156/90 Pulse Ox 88 98 O2 Delivery Nasal Cannula O2 Flow Rate 2.00 Blood Pressure Mean: 108 Progress Progress Note : Progress Note Labs were repeated. Patient was pretreated with Benadryl and Solu-Medrol for CT of the abdomen and pelvis with contrast. 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 No other complications were found. Case was discussed with Dr. Vasques, radiologist. CRP was improving on labs. No other acute changes were identified. Jaquez catheter was placed after postvoid bladder scan revealed a 500 mL residual. Case was discussed with Dr. Perdomo at the patient's request. Patient is to start Urecholine and Flomax. He can then see Dr. Perdomo in follow-up next Friday. Catheter will hopefully be removed at that time. I encouraged the patient to follow-up with his ash worker to discuss possible ablation since he is not an anticoagulation candidate. Dr. Burleson was updated with the patient status as well. See discharge instructions. There were incidental findings of gallstones and a subcarinal chest mass. Follow-up for further evaluation of the chest mass was recommended. Diagnostic Imaging Diagonstic Imaging: CT Plain Films/CT/US/NM/MRI: chest, abdomen, pelvis Comments CT of the chest, abdomen and pelvis was viewed by me, report was reviewed, and images were discussed with the radiologist. See report below: NAME: LISA SINGH [facility] REC#: [id number] PT STATUS: REG ER : 1945 PHYSICIAN: KESHIA JOINER MD ADMIT DATE: 03/20/18/ER Signed Date of Exam: 03/20/18 CT [place] CHEST/NOANG ABD-PELV W INDICATION: Continued left-sided abdominal pain. TECHNIQUE: Axial imaging through the chest, abdomen, and pelvis was performed after the administration of intravenous contrast. CT angiography protocol through the chest was performed with multiplanar, 3D, and MIP reformations. COMPARISON: Noncontrast CT abdomen/pelvis study from 03/18/2018. FINDINGS: CTA CHEST: Evaluation of the pulmonary arterial system is without evidence of thromboembolism. No filling defects are seen within the central, lobar, or segmental branches. The thoracic aorta is of normal caliber. No dissection is seen. No pericardial effusion is identified. There continues to be a small right pleural effusion. The left-sided pleural fluid has resolved. No axillary lymphadenopathy is seen. No definite hilar lymphadenopathy is identified. There is some soft tissue fullness in the subcarinal region, suspicious for adenopathy, measuring 2.9 x 2.0 cm. No parenchymal mass is seen. There is some atelectasis in the lingula. No significant infiltrate is identified. IMPRESSION: 1. No evidence of pulmonary embolism or thoracic aortic dissection. 2. Small right pleural effusion, stable. Trace left pleural effusion has resolved. 3. There is subcarinal fullness, suspicious for subcarinal lymphadenopathy. This has increased since the prior CT chest study from 05/11/2013. A PET/CT study would be useful for further evaluation. CT ABDOMEN/PELVIS: The abdominal aorta is of normal caliber. No dissection is seen. The aorta is widely patent. The celiac, SMA, and BINA are patent. There is some calcified plaque at the origin of the BINA. No secondary signs of mesenteric ischemia are identified. There is no bowel wall thickening or pneumatosis identified. No gas within the SMA or SMV is detected. No portal venous gas is identified. Note is made that the splenic artery is markedly calcified. The distal one/third of the splenic artery does show central low density, consistent with thrombus. This extends to the splenic hilum. The spleen does demonstrate areas of circumscribed low density, consistent with splenic infarcts. The liver is unremarkable. The gallbladder is stone filled. No biliary ductal dilatation is seen. The pancreas is unremarkable. No adrenal mass is seen. The kidneys are unremarkable. There is no ascites. 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 Note is made of a short segment dissection in the right common femoral artery. The bladder is unremarkable. IMPRESSION: 1. Cholelithiasis. 2. No evidence of mesenteric ischemia. 3. 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 Dictated by: Dictated on workstation # [id number] Dict: 03/20/18 1357 Trans: 03/20/18 1530 Interpreted by: LINDSEY VASQUES MD Electronically signed by: LINDSEY VASQUES MD 03/20/18 1530 Departure Impression Primary Impression: Splenic infarct Additional Impressions: Left sided abdominal pain Urinary retention Atrial fibrillation Qualified Codes: I48.2 - Chronic atrial fibrillation Chest mass Cholelithiasis Qualified Codes: K80.20 - Calculus of gallbladder without cholecystitis without obstruction Disposition: 01 HOME, SELF-CARE Condition: Improved Departure-Patient Inst. Decision time for Depature: 14:48 Referrals: BEVERLY BURLESON MD (PCP/Family) Primary Care Physician JAY PERDOMO MD Patient Instructions: Atrial Fibrillation, Jaquez Catheter, Male Add. Discharge Instructions: Follow-up with your ash worker and Dr. Burleson as soon as possible. Return to the ER if you have worsening symptoms. You may take ibuprofen up to 400 mg every 6 hours as needed for pain. Add one or 2 hydrocodone as needed for pain not controlled by ibuprofen. Use a stool softener while you take hydrocodone Your pain should gradually improve as your spleen heals. Because you have damage to your spleen, you may need additional vaccines and may need preventive antibiotics anytime you have dental or medical procedures performed. Please discuss this with Dr. Burleson. There was an area of fullness identified on your chest CT scan. This should be followed or evaluated further. The radiologist suggests performing a PET scan as an outpatient procedure. Please discuss this with Dr. Burleson. In follow-up with your ash worker, please discuss anticoagulation versus heart ablation versus no further treatment for your atrial fibrillation. Until further discussion with your ash worker, please take aspirin 325 mg daily. Start Flomax and Urecholine as prescribed to help urine flow. See Dr. Perdomo March 25 at 1:00 pm. Call his office Friday to confirm the appointment. All discharge instructions reviewed with patient and/or family. Voiced understanding. Scripts Bethanechol Chloride (Urecholine) 25 Mg Tablet 25 MG PO QIDACHS, #120 TAB Prov: KESHIA JOINER MD 03/20/18 Tamsulosin HCl (Flomax) 0.4 Mg Cap 0.4 MG PO DAILY, #30 CAP Prov: KESHIA JOINER MD 03/20/18 Copy Copies To 1: BEVERLY BURLESON MD Copies To 2: JAY PERDOMO MD, JOSHUA T MD Mar 20, 2018 14:51
[2018-03-20] MEDS ORDERED: BETH25TA11 PO (15:13)
[2018-03-20 16:00] VITALS: BP 156/90
== END 2018-03-20 15:55 | disposition home or self-care (01) ==
LOC: EDUNIT# 11:31 → ER 11:33
DX: D73.5 Infarction of spleen (principal); K80.20 Calculus of gallbladder without cholecystitis without obstruction; I48.91 Unspecified atrial fibrillation; R22.2 Localized swelling, mass and lump, trunk; I25.10 Atherosclerotic heart disease of native coronary artery without angina pectoris; I10 Essential (primary) hypertension; E11.621 Type 2 diabetes mellitus with foot ulcer; L97.519 Non-pressure chronic ulcer of other part of right foot with unspecified severity; Z87.19 Personal history of other diseases of the digestive system; Z91.041 Radiographic dye allergy status; Z79.02 Long term (current) use of antithrombotics/antiplatelets; Z80.42 Family history of malignant neoplasm of prostate; Z82.49 Family history of ischemic heart disease and other diseases of the circulatory system; Z95.1 Presence of aortocoronary bypass graft; Z95.5 Presence of coronary angioplasty implant and graft; Z90.79 Acquired absence of other genital organ(s); Z89.411 Acquired absence of right great toe
CPT/HCPCS: 36415; 51702; 71275; 74177; 80053; 81000; 85007; 85027; 86141; 96374; 96375

== ENCOUNTER 2018-03-25 13:43 | Inpatient (IN) | payer MEDICARE, OTHER ==
[~2018-03-25] VITALS: Ht 190.5 cm; Wt 80.4 kg
[~2018-03-25 13:43] MED LIST changes: +BETH25TA11 PO; -RAMI10CA PO; +RAMI10CA69 PO; +TAMS0.4C98 PO
--- NOTE | 2018-03-25 19:51 | HISTORY AND PHYSICAL ---
DATE OF SERVICE: 03/25/2018 ADMISSION HISTORY AND PHYSICAL CHIEF COMPLAINT: Difficulty with walking. HISTORY OF PRESENT ILLNESS: The patient is a 73-year-old male with a past medical history significant for AFib, not on anticoagulation, mild type 2 diabetes mellitus who presented to ED on 03/21 at [facility] in [place], [place] with acute right-sided embolic CVA. Brain CT showed prior lacunar infarct and brain MRI showed multiple acute right hemispheric strokes. MRA of the head and neck showed no critical stenosis. He was started on heparin drip and then converted over to aspirin and statin. There was concern about starting him on oral anticoagulation as he had a retinal hemorrhage in the past. On 01/21/2018, however, he was switched from heparin to Eliquis with no complications. He continued on Eliquis, amiodarone, Lipitor, and aspirin. He also had elevated troponins on admission and felt to have a non-ST elevation [place], normal EKG. Cardiology was consulted. Echo showed an ejection fraction of 40%. He had cardiac catheterization on 03/24 that was unremarkable. He was found to have UTI, placed on Rocephin, now switched to Levaquin. He was continued on his home dose of Levemir for his type 2 diabetes mellitus. A new lung mass was seen on CT from [address]. The patient will have followup CT chest in two months. PCP is Dr. Burleson. Dr. Burleson has requested to consult Dr. Muro, [facility] service for now. The patient had been independent prior to this. 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 Currently, he requires assistance for his ADLs and mobility skills. He has a left hemiparesis. He is on a modified diet for dysphagia and his dysarthria. He was seen by neurology as well while in [place].He is max assist for transfers and mod assist for w/c mobility.He is dependent for lower body dressing and mod assist for upper body dressing.He is able to follow simple commands. PAST MEDICAL HISTORY: Atrial fibrillation, type 2 diabetes mellitus. PAST SURGICAL HISTORY: Cardiac catheterization. ALLERGIES: IODINATED CONTRAST, ORAL AND IV DYE. THE PATIENT'S FAMILY REQUESTS HE USE HIS OWN MEDS HE HAS INTOLERANCE TO GENERIC SUBSTITUTIONS. FAMILY HISTORY: Noncontributory. SOCIAL HISTORY: Essentially as per above. REVIEW OF SYSTEMS: A 10-point review of systems is significant for irregular heartbeat, left-sided weakness, slurred speech, difficulty with swallowing. MEDICATIONS: Levaquin 750 mg p.o. daily, ASA 81 mg p.o. daily, Flonase one spray each nostril daily, Prozac 10 mg p.o. daily, NovoLog insulin 30 units subcu a.c., Eliquis 5 mg p.o. b.i.d., Lipitor 40 mg p.o. at bedtime, Ciloxan eye drops one to two drops to affected eye q.i.d., amiodarone 200 mg p.o. b.i.d., and Levemir 25 units subcu q.12 hours. PHYSICAL EXAMINATION: GENERAL: Significant for a pleasant male appearing his stated age, lying in bed, in no acute distress. VITAL SIGNS: Pulse is regular. He is afebrile. Respirations 20. HEENT: Vision and hearing grossly intact. No oral lesion is noted. Speech is somewhat slurred. He has swallowing disorder as well and is on mechanically altered diet and nectar thick liquids. NECK: Supple without mass. HEART: Irregular rhythm. CHEST: Clear. ABDOMEN: Soft, nontender. Bowel sounds present. EXTREMITIES: No lower leg edema, no calf tenderness. NEUROLOGIC: Dysphagia and dysarthria as per above. He has left hemiparesis, more involved in the upper limb than lower limb. He does have antigravity strength in the upper left limb, fair plus good minus left lower limb. Sensation is grossly intact to touch but he reports decreased sensation bot legs due Diabetic PN. Cognition is grossly intact.Strength RLE hip and knee flex 3+/5 knee extension 4/5 dorsiflexion 4/5/Left Lower limb 3/5 IMPRESSION: 1. 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 2. Type 2 diabetes mellitus with hypoglycemia. 3. HX of retinal hemorrage. 4. Atrial fibrillation, controlled with medication. 5. Urinary tract infection, on p.o. antibiotic. PLAN: The patient will have a comprehensive program of inpatient rehabilitation with goal of maximizing level of functional independence prior to discharge home with family and home health care. The patient will have PT, OT 5 days a week, 90 minutes per day each session when not being seen by speech therapy with a goal of returning home with family modified independent to supervision for ADLs and mobility skills. Please see post-admission physician evaluation, which is a separate document for details of plan of care. Speech therapy to see the patient 30 to 45 minutes per day 5 days a week for cognition, swallow and speech for 2 to 3 weeks. Rehabilitation nursing assist with bowel, bladder, skin care, medication administration, pain management. manager student services to assist with discharge planning, community reentry. Follow up with Dr. Muro, Dr. Burleson and hospitalist services per their schedule. Accu-Cheks q.i.d. a.c. and at bedtime.Adjust Insulin as needed. ESTIMATED LENGTH OF STAY: 21 days. PROGNOSIS: Rehab prognosis appears good for goal of discharging home with family. Hopefully, modified independent to supervision for ADLs, mobility skills. DIET: Carb consistent, nectar thick liquids, mechanically altered diet. CODE STATUS: Full code. Job ID: [id number] DocumentID: [id number] Dictated Date: 03/25/2018 19:03:49 Kitchen Bath Designer Date: 03/25/2018 19:50:39 Dictated By: EMMY JULIEN MD [facility]
[2018-03-25 19:54] VITALS: BP 136/74
[2018-03-25] MEDS: CIPROFLOXACIN 0.3% (CILOXAN) 2.5 ML BTL OP SCH (20:18)
[2018-03-25] MEDS: ATORVASTATIN 40 MG (LIPITOR) TABLET PO SCH (20:19)
[2018-03-25] MEDS: inSUlin DETERMIR 1 UNIT/0.01 ML (LEVEMIR) CHARGE PER UNIT SQ SCH (20:19)
[2018-03-25] MEDS: APIXABAN 5 MG (ELIQUIS) TABLET PO SCH (20:19)
[2018-03-25] MEDS: AMIODARONE 200 MG (CORDARONE) TAB PO SCH (20:19)
[2018-03-26 05:12] VITALS: BP 138/81
[2018-03-26] MEDS ORDERED: inSUlin ASPART (NovoLOG) 1 UNIT/0.01 ML (CHARGE PER UNIT) SC SCH (06:00)
[2018-03-26] MEDS ORDERED: FLUoxetine HCL 20 MG (PROzac) CAP PO SCH (09:00)
--- NOTE | 2018-03-26 09:31 | PM&R Post Admission Assessment ---
Post Admission Physician Asses Date seen by provider: Mar 26, 2018 Time seen by provider: 08:00 The preadmission screen agrees with the post admission assessment that the patient is a good candidate for inpatient rehabilitation. The patient will have a comprehensive program of inpatient rehabilitation with a goal of maximizing level of functional independence prior to discharge home with family. The patient will have PT/OT ninety minutes per day, each discipline, five days a week for 2 weeks gait, strengthening, conditioning, balance, ADLs, any patient/family/caregiver training as necessary. Speech therapy to do cognitive,swallow and speech assessment and treat as indicated for 30 to 45 min per day for 2 weeks. Rehabilitation nursing to assist with bowel, bladder, skin, wound care, medication administration, pain management. Cloth Piecer to assist with discharge planning, community reentry. SCD's for DVT prophylaxis. He appears to be well motivated to participate in three hours of therapy a day. He should be able to tolerate three hours of therapy a day from a medical standpoint. He should benefit from the three hours of therapy a day. He has a reasonable discharge plan, reasonable discharge rehabilitation goals and a supportive family. He has various comorbidities that need to be closely monitored with medications and treatments adjusted on a daily basis as needed. These include: DM with hypoglycemia A FIB on med UTI on antibiotic Barriers to discharge for this patient who had been independent prior to this are for him to be modified independent to supervision for ADLs and mobility skills prior to discharge home with family, so as to lessen the burden of the caregivers. Risks for this patient include: 1. Fall 2. Fracture 3. DVT 4. Pulmonary embolism 5. poorly controlled DM 6. Skin breakdown 7. Contractures 8. Poorly controlled pain 9. Urinary retention 10. recuurent UTI 11. Respiratory infection 12. Aspiration 13. Poorly controlled A FIB Estimated Length of Stay: 21 days Prognosis: Rehab prognosis appears good for goal of discharge home with family modified independent to supervision for ADLs and mobility skills. General: Alert, Cooperative, No Acute Distress HEENT: Atraumatic, PERRLA, EOMI, Mucous Memb Moist/[place], Other (Dysphagia dysarthria ) Neck: Supple, No JVD Lungs: Clear to Auscultation Heart: Other (Irregular) Abdomen: Normal Bowel Sounds, Soft, No Tenderness Extremities: No Edema Neuro: Other (Left HP Upper more then lower ) Psych/Mental Status: Other (Somewhat somnolent this AM most likely due to hypoglycemic episode insulin to be adjusted Hospitalist to see in Lieu of PCP DR Burleson) EMMY JULIEN MD Mar 26, 2018 09:31
[2018-03-26] MEDS: AMIODARONE 200 MG (CORDARONE) TAB PO SCH ×2 (09:45→20:14)
[2018-03-26] MEDS: ASPIRIN E.C. 81 MG (ECOTRIN) TAB PO SCH (09:45)
[2018-03-26] MEDS: FLUoxetine HCL 10 MG (PROzac) CAPSULE/TABLET PO SCH (09:45)
[2018-03-26] MEDS: APIXABAN 5 MG (ELIQUIS) TABLET PO SCH ×2 (09:45→20:14)
[2018-03-26] MEDS: inSUlin DETERMIR 1 UNIT/0.01 ML (LEVEMIR) CHARGE PER UNIT SQ SCH ×2 (09:45→20:16)
[2018-03-26] MEDS: FLUTICASONE NASAL SPRAY (FLONASE) 16 GM BTL NS SCH (09:46)
[2018-03-26] MEDS: CIPROFLOXACIN 0.3% (CILOXAN) 2.5 ML BTL OP SCH ×4 (09:46→20:17)
[2018-03-26] MEDS: inSUlin ASPART (NovoLOG) 1 UNIT/0.01 ML (CHARGE PER UNIT) SC SCH ×3 (11:14→20:30)
--- NOTE | 2018-03-26 11:44 | ST Dysphagia Evaluation ---
Speech Evaluation-General Medical Diagnosis CVA Onset Date: Mar 21, 2018 Therapy Diagnosis Therapy Diagnosis: Dysphagia Precautions Precautions: Aspiration Precautions/Isolations: Fall Prevention, Standard Precautions Referral Referring Physician: Dr. Fracisco Carlin Reason for Referral: Evaluation/Treatment Medical History Current History CVA Speech PLF/Current-Dysphagia Prior Level of Function Independent. Ate regular diet with thin liquids. Subjective Pt up and in chair. present. Oral Motor Skills Dentition: Natural Ability to Follow Directions: Good Oral Expression Ability: Mild Impairment Face Facial Symmetry: Asymmetrical (on Left side) Oral-Facial Assessment Oral-Facial Dentition: Normal Labial Seal Description: Droops Left Smile: Droops Left Lingual Protrusion: Normal Lingual ROM: Normal Lingual Strength: Abnormal (on Left) Dysphagia Evaluation Consistencies Presented: Thin Liquid, Mechanical Soft, Pureed appeared WFL Pharyngeal Phase: Reduced Laryngeal Elevation Funct. Velo/Pharyngeal Symptom: Cough After Swallow Dietary Recommendations: Mechanical Soft Liquid Recommendations: [place] Consistancy RECOMMENDATIONS: Continue with [facility] soft diet and nectar thick liquids. Pt was noted to cough x1 after the swallow for thin liquids. Dysphagia Evaluation Summary Pt has pharyngeal dysphasia as evidenced by a cough after the swallow of thin liquid. Pt was placed on a Dysphagia 2 diet with nectar thick liquids at previous facility. Continue with those recommendations until re-assessment of swallow function. Speech Short Term Goals Short Term Goals Short Term Goals Pt will complete Oral Motor Exercises (OMEs) with min assist. Time Frame-ST week Speech Under Presser Goals Retirement Goals Pt will tolerate regular diet with thin liquids without signs/symptoms of aspiration. Time Frame: 3wweks Speech-Plan Patient/Family Goals Patient/Family Goals: to be on a regular diet with thin liquids. Treatment Plan Speech Therapy Treatment Plan: Modify Plan, See Comments (Skilled ST 5xs/wk for 3-4 weeks) Pt is a good candidate for dysphagia tx. Frequency: 5 times per week Estimated Hrs Per Day: Other (45 minutes a day) Rehab Potential: Good Pt/Family Agrees to Plan: Yes Safety Risks/Education Teaching Recipient: Family Teaching Methods: Discussion Response to Teaching: Verbalize Understanding Education Topics Provided: Dysphagia information and explanation of how a Bedside Exam is done vs Modified barium Swallow. Time Speech Therapy Time In: 10:00 Speech Therapy Time Out: 10:30 Total Billed Time: 30 Billed Treatment Time 1, MAGALY Callahan Mar 26, 2018 11:44
--- NOTE | 2018-03-26 11:57 | Physical Therapy Evaluation ---
PT Evaluation-General Medical Diagnosis Admission Date Mar 25, 2018 at 17:41 Medical Diagnosis: CVA Onset Date: Mar 21, 2018 Therapy Diagnosis Therapy Diagnosis: impaired mobility, strength, endurance, balance Height/Weight Height (Feet): 6 Height (Inches): 3.00 Weight (Pounds): 170 Weight (Ounces): 2.0 Precautions Precautions/Isolations: Fall Prevention, Standard Precautions Referral Physician: Tesfaye Reason for Referral: Evaluation/Treatment Medical History Additional Medical History PAST MEDICAL HISTORY: Atrial fibrillation, type 2 diabetes mellitus. PAST SURGICAL HISTORY: Cardiac catheterization. Reviewed History: Yes Social History Home: Single Level Current Living Status: Spouse Entry Into Home: Level Entry Prior/Core FIM Prior Level of Function Functional [place] Measure 0=Not Assessed/NA 4=Minimal Assistance 1=Total Assistance 5=Supervision or Setup 2=Maximal Assistance 6=Modified [place] 3=Moderate Assistance 7=Complete [place] Bed Mobility: 7 Transfers (B,C,W/C) (FIM): 7 Gait: 7 PT Evaluation-Current Subjective Patient in recliner pre tx, agrees to PT, no complaints of pain, will be co- treating with OT this morning for ADL's and mobility. Pt/Family Goals to be independent at home Objective Patient Orientation: Person, Place, Situation ROM/Strength ROM Lower Extremities WNL Strenght Lower Extremities right lower extremity (hip flexion 3+/5, knee flexion 3+/5, knee extension 4/5, dorsiflexion 4/5), left lower extremity (hip flexion 3/5, knee flexion 3/5, knee extension 3/5, dorsiflexion 3/5) Neuromuscular (Tone, Coordination, Reflexes) Patient has slight increased tone in adductors of left leg. Patient seems to have decreased left peripheral vision and tracking. Sensory Vision: Hearing: Impaired Sensation Right Lower Extremit: Impaired Sensation Left Lower Extremity: Impaired Sensation Lower Extremities Patient has intact light touch sensation in both LE but states that he does have peripheral neuropathy bilaterally and has decreased sensation. Transfers Functional [place] Measure 0=Not Assessed/NA 4=Minimal Assistance 1=Total Assistance 5=Supervision or Setup 2=Maximal Assistance 6=Modified [place] 3=Moderate Assistance 7=Complete IndependenceIRFPAI Quality Coding Scale 6 Independent with activity with or without an assistive device 5 Patient requires set up or clean up by helper. Patient completes activity by themselves 4 Supervision or touching assist (CGA). [place] provide cues , steadying assist 3 The helper provides less than half the effort to complete the activity 2 The helper provides more than half the effort to complete the activity 1 Dependent. The helper does all the effort to complete an activity 7 Patient refused to complete or attempt activity 9 The patient did not perform the activity before the current illness or injury 88 Not attempted due to Medical conditions or safety concerns Transfers (B, C, W/C) (FIM): 2 Scootin Rollin Roll Left to Right (QC): 2 Supine to/from Sit: 3 Sit to/from Stand: 3 bed t/f WC(FIM only if WC use): 2 Sit to Lying (QC): 2 Lying to Sitting/Side of Bed(Q: 2 Sit to Stand (QC): 2 Chair/Tjs-tb-Tbomd Xfer(QC): 2 Car Transfer (QC): 2 Patient performs bed mobility mostly with mod assist, supine <-> sit with mod assist, sit to stand with mod assist, stand pivot transfer max assist, car transfer max assist. Patient needs cues for safety, hand placement, and positioning. Patient leans heavily to the left when standing and doing transfers. Gait Does the Patient Walk?: No and Walking Goal IS indicated Wheelchair Training Does the Pt Use a Wheelchair?: Yes Wheelchair (FIM): 4 Distance: 150'x2 Wheelchair Level of Assist: 4 Wheel 50 ft with 2 turns (QC): 3 Wheel 150 ft (QC): 3 Type of Wheelchair: Manual Patient needs assist turning corners and going around obstacles, cues for direction. Stairs If not tested on admit;explain Patient is non-ambulatory at this time. Balance Sitting Static: Fair Sitting Dynamic: Fair Standing Static: Poor Standing Dynamic: Poor Treatment Patient also was dressed and bathed. Assessment/Needs Patient has impaired mobility, strength, endurance, balance post CVA. He is a high fall risk. Rehab Potential: Fair PT Short Term Goals Short Term Goals Time Frame: Apr 02, 2018 Transfers (B,C,W/C) (FIM): 3 Gait (FIM): 1 Gait Distance Comment: 20' Gait Level of Assist: 2 Gait Assistive Device: Cane Large Base Quad PT Materials Technician Goals Materials Technician Goals PT Materials Technician Goals Time Frame: Apr 16, 2018 Transfers (B,C,W/C) (FIM): 4 Sit to Lying (QC): 3 Lying-Sitting on Side/Bed(QC): 3 Sit to Stand (QC): 3 Rollin Roll Left to Right (QC): 3 Chair/Yax-ax-Tzoqm Xfer(QC): 3 Car Transfer (QC): 3 Gait (FIM): 2 Distance: 50' Walk 10 feet (QC): 3 Walk 10ft-Uneven Surface(QC): 3 Walk 50ft with 2 Turns (QC): 3 Gait Level of Assist: 4 Gait Assistive Device: Cane Large Base Quad Wheelchair (FIM): 6 Distance: 200' Wheel 50 feet with 2 turns (QC: 6 PT Plan Problem List Problem List: Activity Tolerance, Functional Strength, Safety, Balance, Gait, Transfer, Bed Mobility, ROM Treatment/Plan Treatment Plan: Continue Plan of Care Treatment Plan: Bed Mobility, Concurrent Therapy, Education, Functional Activity Sukhdeep, Functional Strength, Group Therapy, Gait, Safety, Therapeutic Exercise, Transfers Treatment Duration: Apr 16, 2018 Frequency: At least 5 of 7 days/Wk (IRF) Estimated Hrs Per Day: 1.5 hours per day Patient and/or Family Agrees t: Yes Safety Risks/Education Patient Education: Transfer Techniques, Correct Positioning, W/C Management, Disease Process, Safety Issues Teaching Recipient: Patient Teaching Methods: Demonstration, Discussion Response to Teaching: Reinforcement Needed Discharge Recommendations Plan Patient will perform bed mobility and transfer training, balance and endurance training, functional strengthening, stair training, gait training, and education , to improve functional mobility and independence at home. Therapy D/C Recommendations: Home w/ Family Support Time/GCodes Time In: 1030 Time Out: 1200 Total Billed Treatment Time: 80 Total Billed Treatment 1 visit EVM 10' WCH 15' FA 55' PT eval from [id number], OT eval from [id number], co-treated from [id number]. OT worked on UE ROM, bathing, dressing, positioning during transfers, PT worked on transfers, bed mobility, standing and positioning during ADL's. CAMMY BLACK PT Mar 26, 2018 11:57
[2018-03-26] MEDS: LEVOFLOXACIN 750 MG TAB (LEVAQUIN) PO SCH (12:09)
[2018-03-26] MEDS ORDERED: FLUT16SP22 NS (13:18)
[2018-03-26] MEDS ORDERED: AMIO400T5 PO (13:18)
[2018-03-26] MEDS ORDERED: CETI10TA20 PO (13:18)
--- NOTE | 2018-03-26 14:07 | Occupational Therapy Eval ---
OT Evaluation-General/PLF Medical Diagnosis Admission Date Mar 25, 2018 at 17:41 Medical Diagnosis: CVA Onset Date: Mar 21, 2018 Therapy Diagnosis Therapy Diagnosis: Left sided weakness Height/Weight Height (Feet): 6 Height (Inches): 3.00 Weight (Pounds): 170 Weight (Ounces): 2.0 Precautions Precautions/Isolations: Fall Prevention, Standard Precautions, Pressure Ulcer Safety Interventions: Move Closer to Desk Weight Bear Status Weight Bearing Restriction: Weight Bearing/Tolerated Referral Physician: Tesfaye Referral Reason: Activity Tolerance, Self Care, Evaluation/Treatment, Strengthening/ROM Medical History Pertinent Medical History: Atrial Fib, DM Additional Medical History UTI, cardiac cath Current History Pt. was having side pain. Went to ER per spouse. Returned home and slowly had increased trouble moving around. Went back to ER. Noted to have had a CVA. Reviewed History: Yes Social History Home: Single Level Current Living Status: Spouse Entry Into Home: Level Entry ADL-Prior Level of Function ADL PLOF Comments Pt. was independent with all ADLs. DME/Equipment: Shower DME/Equipment Comments Pt. has a walker but does not use it. 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 Appearance Pt. is in chair when therapy enter room. Mental Status/Objective Patient Orientation: Person, Place Current Hand Dominance: Right Upper Extremity ROM Right- WFL Left-impaired. Pt. is able to flex left shoulder slowly approximately 40 degrees with effort. No active wrist movement noted. Weak gross grasp. Upper Extremity Coordination Left- impaired. Upper Extremity Strength Right- WFL Left- 2/5 shoulder 2/5 elbow 2/5 hand No active movement wrist ADL-Treatment Functional [place] Measure 0=Not Assessed/NA 4=Minimal Assistance 1=Total Assistance 5=Supervision or Setup 2=Maximal Assistance 6=Modified [place] 3=Moderate Assistance 7=Complete IndependenceIRFPAI Quality Coding Scale 6 Independent with activity with or without an assistive device 5 Patient requires set up or clean up by helper. Patient completes activity by themselves 4 Supervision or touching assist (CGA). [place] provide cues , steadying assist 3 The helper provides less than half the effort to complete the activity 2 The helper provides more than half the effort to complete the activity 1 Dependent. The helper does all the effort to complete an activity 7 Patient refused to complete or attempt activity 9 The patient did not perform the activity before the current illness or injury 88 Not attempted due to Medical conditions or safety concerns Eating (FIM): 5 (Pt. is able to eat ice cream after set up using right hand to feed self, and left hand as stabilizer for ice cream container.) Eating (QC): 4 Grooming (FIM): 4 (Min assist to brush hair.) Bathing (FIM): 2 (Pt. requires assist to wash left arm, front and rear ag area, and bilateral feet.) Shower/Bathe Self (QC): 2 Upper Body Dressing (FIM): 2 (Pt. has difficulty threading left UE through shirt. Tries several times before OT does this for him.) Upper Body Dressing (QC): 2 Lower Body Dressing (FIM): 2 (Pt. is able to doff bilateral shoes and right sock. Unable to don them and max assist needed to thread feet through brief and pants.) Lower Body Dressing (QC): 2 On/Off Footwear (QC): 3 Transfers (B, C, W/C) (FIM): 2 (Max assist to stand and pivot to and from chair.) Other Treatments OT/PT co-treated due to severity of pt's illness. OT facilitated ADL training, education for left UE positioning, and rehab goals, while PT focused on transfer training, wheelchair mobility, and LE strength. Pt. practiced car transfer as well as mobility and balance exercises seated on mat in gym. Noted that pt. is able to sit upright, but when tired, leans to left. Slight subluxation starting in left shoulder capsule. Educated pt. about this and importance of being aware of left UE. Pt. verbalizes understanding. Propelled back to gym at end of session. Transferred back to chair with mod assist. All needs met in room with left UE positioned well. Education OT Patient Education: Correct positioning, Exercise program, Instructions to caregiver, Modified ADL techniques, Progress toward Goal/Update tx plan, Purpose of tx/functional activities, Reviewed precautions, Rehab process, Transfer techniques Teaching Recipient: Patient, Family Teaching Methods: Demonstration, Discussion Response to Teaching: Verbalize Understanding, Return Demonstration OT Short Term Goals Short Term Goals Time Frame: Apr 09, 2018 Eating(FIM): 6 Grooming(FIM): 5 Bathing(FIM): 4 Upper Body Dressing(FIM): 4 Lower Body Dressing(FIM): 3 Toileting(FIM): 4 Transfers (B,C,W/C) (FIM): 3 Toilet/Commode Transfer(FIM): 4 Shower Transfer(FIM): 4 Additional Short Term Goals: 1-Demonstrate ADL Tasks, 2-Verbalize Understanding , 3-ImproveStrength/Sukhdeep 1=Demonstrate adherence to instructed precautions during ADL tasks. 2=Patient will verbalize/demonstrate understanding of assistive devices/ modifications for ADL. 3=Patient will improve strength/tolerance for activity to enable patient to perform ADL's. OT Senior Living Goals Senior Living Goals Time Frame: Apr 23, 2018 Eating (FIM): 6 Eating (QC): 6 Groomin Oral Hygiene (QC): 6 Bathing(FIM): 5 Shower/Bathe Self (QC): 5 Upper Body Dressing(FIM): 5 Upper Body Dressing (QC): 5 Lower Body Dressing(FIM): 5 Lower Body Dressing (QC): 5 On/Off Footwear (QC): 5 Toileting(FIM): 6 Toileting Hygiene (QC): 6 Transfers (B,C,W/C) (FIM): 6 Toilet/Commode Transfer(FIM): 6 Toilet/Commode Transfer (QC): 6 Shower Transfer(FIM): 5 Additional Goals: 1-Demonstrate ADL Tasks, 2-Verbalize Understanding, 3- ImproveStrength/Sukhdeep 1=Demonstrate adherence to instructed precautions during ADL tasks. 2=Patient will verbalize/demonstrate understanding of assistive devices/ modifications for ADL. 3=Patient will improve strength/tolerance for activity to enable patient to perform ADL's. OT Education/Plan Problem List/Assessment Assessment: Decreased Activ Tolerance, Decreased UE Strength, Dependent Transfers, Impaired Bed Mobility, Impaired Coordination, Impaired Funct Balance , Impaired I ADL's, Impaired Self-Care Skills, Restricted Funct UE ROM Discharge Recommendations Plan/Recommendations: Continue POC Therapy D/C Recommendations: Home w/ Family Support, Occupational Therapy Home Care, Scheduled Assistance Comment Will continue to assess and determine needs for home. Treatment Plan/Plan of Care Treatment,Training & Education: Yes Patient would benefit from OT for education, treatment and training to promote independence in ADL's, mobility, safety and/or upper extremity function for ADL' s. Plan of Care: ADL Retraining, Functional Mobility, Group Exercise/Act as Ind, UE Funct Exercise/Act Treatment Duration: Apr 23, 2018 Frequency: At least 5 of 7 days/Wk (IRF) Estimated Hrs Per Day: 1.5 hours per day Agreement: Yes Rehab Potential: Fair Time/GCodes Start Time: 10:30 Stop Time: 12:00 Total Time Billed (hr/min): 80 Billed Treatment Time 2752-4937 PT eval no charge [id number] 1, [facility] OT eval [id number] ADL x 40minutes, FA x 30minutes co-treat with PT. Please see note above for designated roles. TIRSO VAZQUEZ OT Mar 26, 2018 14:07
--- NOTE | 2018-03-26 14:10 | PM & R (SOAP) Progress Note ---
Subjective This was a face to face visit with the patient. Date Seen by Provider: Mar 26, 2018 Time Seen by Provider: 08:00 Subjective/Events-last exam Patient was seen in his room this AM Somewhat somnolent possibly due to episode of hypoglycemia Insulin dosage being adjusted Hospitalist service following.ST and PT evals reviewed Accucheks noted.Patient max assist for transfers. Review of Systems General: Fatigue Neurological: Weakness Objective Physician Exam Last Set of Vital Signs Vital Signs Date Time Temp Pulse Resp B/P (MAP) Pulse Ox O2 Delivery O2 Flow Rate FiO2 03/26/18 09:00 Room Air 03/26/18 05:12 99.1 81 20 138/81 (100) 97 Capillary Refill : I&O Intake and Output 03/26/18 00:00 Daily Weight Change Yes, 2-13 lbs General: Alert, Cooperative, No Acute Distress HEENT: Atraumatic, PERRLA, EOMI, Mucous Memb Moist/[place], Other (Dysphagia dysarthria ) Neck: Supple, No JVD Lungs: Clear to Auscultation Heart: Other (Irregular) Abdomen: Normal Bowel Sounds, Soft, No Tenderness Extremities: No Edema Neuro: Other (Left HP Upper more then lower ) Psych/Mental Status: Other (Somewhat somnolent this AM most likely due to hypoglycemic episode insulin to be adjusted Hospitalist to see in Lieu of PCP DR Burleson) Results Lab Data Laboratory Tests 03/25/18 19:02: Glucometer 108 03/26/18 06:19: Glucometer 53*L 03/26/18 06:43: Glucometer 72 03/26/18 10:24: Glucometer 180H Assessment/Plan Assessment and Plan 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
--- NOTE | 2018-03-26 15:00 | ST Cognitive Linguistic Eval ---
Speech Evaluation-General Medical Diagnosis CVA Onset Date: Mar 21, 2018 Therapy Diagnosis Therapy Diagnosis: Cognition Precautions Precautions: Aspiration Precautions/Isolations: Fall Prevention, Standard Precautions, Pressure Ulcer Referral Referring Physician: Dr. Fracisco Carlin Reason for Referral: Evaluation/Treatment Medical History Pertinent Medical History: Atrial Fib, DM Current History L weakness due to CVA. Reviewed History: Yes Social History Current Living Status: Spouse Speech PLF-Current Status Prior Level of Function Pt was independent Subjective Pt in bed, eyes closed but was able to tolerate assessment. was present. Pain Numeric Pain Scale: 0-No Pain Language Eval: Auditory Comprehends Simple Yes/No Ques: Functional Follows 1-Step Commands: Functional Follows Complex Directions: Functional Follows General Conversations: Functional Language Eval: Verbal Language Completes Spontaneous Greeting: Functional Requests Basic Needs: Functional States Basic Personal Info: Functional Expresses Complex Ideas: Functional Cognitive Patient Orientation Pt oriented to person, place and time. Objective Cognitive Domain Attention: WNL Memory: WNL Problem Solving: Mild Objective Results [facility] was administered to assess cognitive-linguistic functioning. Results are as follows: Memory - 3 word recall immediate 3/3; delayed 3/3; and remote delay 3/3. Sequencing/organization: 4/4 Problem Solving: Simple 5/5; Abstract/Complex 4/4; Comparisons 1.5/4 Yes/No Questions: 10/10 Speech/language WFL mild dysarthria, however, 100% intelligible Oral Motor/Speech Production Mild dysarthria Impression Mild dysarthria and cognitive-linguistic skills WFL. Communication/Social Cognition Comprehension: 6 Expression: 7 Social Interaction: 7 Problem Solvin Memory: 7 Speech Patient Assess Expression of Ideas/Wants: Expression (4) Understanding Verbal Content: Understands (4) Brief Interview-Mental Status: Yes Repetition of Three Words: Three (3) Temporal Orientation: Year: Correct (3) Temporal Orientation: Month: Accurate within 5 days(2) Temporal Orientation: Day: Correct (1) Recall : Wear to say "Sock": Yes, no cue required (2) Recall : Color: Yes, no cue required (2) Recall : Bed: Yes, no cue required (2) Speech Short Term Goals Short Term Goals Short Term Goals No STGs established at this time due to skilled ST was not indicated. Speech Custodial Goals Custodial Goals No LTGs were established as no skilled ST indicated at this time. Speech-Plan Patient/Family Goals Patient/Family Goals: to be able to walk, take care of his and family and drink a big glass of water. Treatment Plan Speech Therapy Treatment Plan: Modify Plan, See Comments (no cognitive skilled ST indicated at this time) no skilled ST indicated as this time due to results of assessment. Treatment Duration: Mar 26, 2018 Frequency: Modified Program (IRF) (0) Estimated Hrs Per Day: Other (0) Rehab Potential: Good Pt/Family Agrees to Plan: Yes Safety Risks/Education Teaching Recipient: Family Teaching Methods: Handout, Discussion Response to Teaching: Verbalize Understanding Education Topics Provided: What cognition is and provided a handout. Time Speech Therapy Time In: 14:00 Speech Therapy Time Out: 14:30 Total Billed Time: 30 Billed Treatment Time 1, MAGALY Lopez Mar 26, 2018 15:00
[2018-03-26 18:47] VITALS: BP 133/79
[2018-03-26] MEDS: ATORVASTATIN 40 MG (LIPITOR) TABLET PO SCH (20:14)
[2018-03-27] MEDS ORDERED: ACETAMINOPHEN 325 MG TABLET ONE (00:34)
[2018-03-27] MEDS: ACETAMINOPHEN 325 MG TABLET PO PRN (00:38)
[2018-03-27] MEDS: inSUlin ASPART (NovoLOG) 1 UNIT/0.01 ML (CHARGE PER UNIT) SC SCH ×4 (04:31→21:33)
[2018-03-27 05:08] VITALS: BP 145/78
[2018-03-27] MEDS: ASPIRIN E.C. 81 MG (ECOTRIN) TAB PO SCH (08:21)
[2018-03-27] MEDS: APIXABAN 5 MG (ELIQUIS) TABLET PO SCH ×2 (08:21→21:33)
[2018-03-27] MEDS: FLUoxetine HCL 10 MG (PROzac) CAPSULE/TABLET PO SCH (08:21)
[2018-03-27] MEDS: AMIODARONE 200 MG (CORDARONE) TAB PO SCH ×2 (08:21→21:33)
--- NOTE | 2018-03-27 08:24 | PM & R (SOAP) Progress Note ---
Subjective This was a face to face visit with the patient. Date Seen by Provider: Mar 27, 2018 Time Seen by Provider: 08:10 Subjective/Events-last exam Patient was seen in his room this AM Patient mod to max assist for transfers Review of Systems Neurological: Weakness Objective Physician Exam Last Set of Vital Signs Vital Signs Date Time Temp Pulse Resp B/P (MAP) Pulse Ox O2 Delivery O2 Flow Rate FiO2 03/27/18 05:08 97.9 79 18 145/78 (100) 98 Room Air Capillary Refill : I&O Intake and Output 03/27/18 00:00 Intake Total 895 ml Output Total 250 ml Balance 645 ml Intake Oral 895 ml Output Urine Total 250 ml # Voids 4 # Urine Diapers 2 # Bowel Movements 4 General: Alert, Cooperative, No Acute Distress HEENT: Atraumatic, PERRLA, EOMI, Mucous Memb Moist/[place], Other (Dysphagia dysarthria ) Neck: Supple, No JVD Lungs: Clear to Auscultation Heart: Other (Irregular) Abdomen: Normal Bowel Sounds, Soft, No Tenderness Extremities: No Edema Neuro: Other (Left HP Upper more then lower ) Psych/Mental Status: Other (Somewhat somnolent this AM most likely due to hypoglycemic episode insulin to be adjusted Hospitalist to see in Lieu of PCP DR Burleson) Results Lab Data Laboratory Tests 03/25/18 19:02: Glucometer 108 03/26/18 06:19: Glucometer 53*L 03/26/18 06:43: Glucometer 72 03/26/18 10:24: Glucometer 180H 03/26/18 16:36: Glucometer 108 03/26/18 20:16: Glucometer 118H 03/27/18 04:29: Glucometer 61L 03/27/18 05:11: Glucometer 82 Assessment/Plan Assessment and Plan 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
--- NOTE | 2018-03-27 08:29 | Individualized Plan of Care ---
Individualized Plan of Care Rehab Nursing IPOC Order Admission Date Mar 25, 2018 at 17:41 Current Orders Orders Admission Arrival Bed Request (03/25/18 16:34) Admission Order(Inpt,Obs,Sdc) (03/25/18 17:25) Vital Signs: Routine (Order) 08,16,00 (03/25/18 17:25) Sequential Compression Device 08,20 (03/25/18 17:25) Seasonal Greenery Bundler-Inpt Rehab Con (03/25/18 17:25) Rehab Nursing Orders-Ipoc (03/25/18 17:25) Physical Therapy Rehab Orders (03/25/18 17:25) Occupational Therapy Rehab Ord (03/25/18 17:25) Speech Therapy Rehab Orders (03/25/18 17:25) Turn And Reposition Q2HR (03/25/18 17:25) Intake & Output 06,14,22 (03/25/18 17:25) Weekly Weight (Lbs) WEEK (03/25/18 17:25) Code/Resuscitation (03/25/18 17:25) Initiate Admission Nursing Pro .admission (03/25/18 17:25) Consult Physician (03/25/18 17:31) Accucheck Achs ACHS (03/25/18 17:32) Apixaban Tablet (Eliquis Tablet) (03/25/18 21:00) Aspirin Enteric Coated Tablet (Ecotrin T (03/26/18 09:00) Atorvastatin Tablet (Lipitor) (03/25/18 21:00) Ciprofloxacin 0.3% Ophth Soln (Ciloxan 0 (03/25/18 21:00) Fluoxetine Capsule (Prozac Capsule) (03/26/18 09:00) Levofloxacin Tablet (Levaquin Tablet) (03/26/18 11:00) Amiodarone Tablet (Cordarone Tablet) (03/25/18 21:00) Insulin Aspart (Novolog) (Novolog (Charg (03/26/18 06:00) Fluticasone Nasal Chromo (Flonase Nasal S (03/26/18 09:00) Pharmacy Communication (Pharmacy Communi (03/25/18 17:45) Insulin Determir (Per Unit) (Levemir (Pe (03/25/18 21:00) Fluoxetine Capsule/Tablet (Prozac Capsul (03/26/18 09:00) Request Ot Evaluate & Treat (03/25/18 17:47) Request For Dysphagia Services (03/25/18 17:47) Ambulate TID (03/25/18 17:47) Sequential Compression Device , (03/25/18 17:47) Dvt/Vte Risk - Notifiy Physici 08 (03/25/18 17:47) Cho 60g/M 1snack (16-2000 [place]) (03/25/18 Breakfast) Insulin Determir (Per Unit) (Levemir (Pe (03/26/18 21:00) Accucheck Achs ACHS (03/26/18 10:32) Insulin Aspart (Novolog) (Novolog (Charg (03/26/18 11:00) Patient Visit (03/26/18 ) Pt Eval Moderate Complexity (03/26/18 ) Wheelchair Mgmt/Propulsn 15min (03/26/18 ) Functional Activities, Ea 15 (03/26/18 ) Patient Visit (03/26/18 ) Dysphagia Evaluation Std (03/26/18 ) Patient Visit (03/26/18 ) Speech Sound Lang Comp (03/26/18 ) Automatic Tray (03/26/18 17:58) Acetaminophen Tablet/Caplet (Tylenol T (03/27/18 00:45) Acetaminophen Tablet/Caplet (Tylenol T (03/27/18 00:34) Rehab Nursing Orders: Ongoing Assess. of Cognitive Status, Ongoing Assess. of Function Status, Disease Management & Educaiton, DVT Prophylaxis, Fall Prevention, Fluid/Electrolyte/Nutrition Mgmt, Infection Prevention, Medication Management & Education, Management of Risks & Complications, Management of Skin Intergrity, Nutrition Management, Pain Management, Patient/Family Support PT IPOC Problem List: Activity Tolerance, Functional Strength, Safety, Balance, Gait, Transfer, Bed Mobility, ROM Treatment Plan: Continue Plan of Care Bed Mobility, Concurrent Therapy, Education, Functional Activity Sukhdeep, Functional Strength, Group Therapy, Gait, Safety, Therapeutic Exercise, Transfers Treatment Duration: Apr 16, 2018 Frequency: At least 5 of 7 days/Wk (IRF) Estimated Hrs Per Day: 1.5 hours per day OT IPOC Problems: Decreased Activ Tolerance, Decreased UE Strength, Dependent Transfers , Impaired Bed Mobility, Impaired Coordination, Impaired Funct Balance, Impaired I ADL's, Impaired Self-Care Skills, Restricted Funct UE ROM OT Treatment, Training and Edu: Yes Plan of Care: ADL Retraining, Functional Mobility, Group Exercise/Act as Ind, UE Funct Exercise/Act Treatment Duration: Apr 23, 2018 Frequency: At least 5 of 7 days/Wk (IRF) Estimated Hrs Per Day: 1.[address] IPOC Speech Therapy Treatment Plan: Modify Plan, See Comments (no cognitive skilled ST indicated at this time) Treatment Duration: Mar 26, 2018 Frequency: Modified Program (IRF) (0) Estimated Hrs Per Day: Other (0) Seasonal Greenery Bundler/Case Mgmt Seasonal Greenery Bundler/Case Managemen: Discharge Planning, Patient/Family Counseling Dietitian/Signal Worker Dietitian/Signal Worker to monitor nutritional status and make changes and/or recommendations as needed and work with speech pathology on dietary upgrades as the occur. Physician IPOC Medical Issues being managed closely and that require the 24 hour availability of a physician: DM with hypoglycemia A FIB UTI Medical Issues: Bowel/Bladder Function, DVT Prophylaxis, Falls Precautions, Fluid/Electrolyte/Nutrition Balance, Infection Protection, Pain Management, Other (List) (as per above) Brief Synthesis of Preadmission Screen, Post-Admission Evaluation, and Therapy Evaluations: 73 yo male with rt embolic CVA with left HP and Dysartria and dysphagia with hx of DM and A FIB.Has episodes of hypoglycemia and Hospitalist service adjustting Insulin Discussed with RN Medical Prognosis: Good Anticipated Length of Stay: 04-23-18 Modified Independent to supervision for adls and mobility skills Anticipated d/c Destination: Home with family and [facility] EMMY JULIEN MD Mar 27, 2018 08:29
[2018-03-27] MEDS: CIPROFLOXACIN 0.3% (CILOXAN) 2.5 ML BTL OP SCH ×4 (09:00→21:34)
[2018-03-27] MEDS: FLUTICASONE NASAL SPRAY (FLONASE) 16 GM BTL NS SCH (09:00)
[2018-03-27] MEDS: inSUlin DETERMIR 1 UNIT/0.01 ML (LEVEMIR) CHARGE PER UNIT SQ SCH ×2 (09:22→21:32)
--- NOTE | 2018-03-27 10:01 | Physical Therapy Daily Note ---
PT Daily Note-Current Subjective Patient in recliner pre tx, agrees to PT, no complaints of pain. Will be co- treating with OT for ADL's and ambulation due to poor patient balance and coordination. Appearance Patient in wheelchair in therapy gym post tx, finishing up with OT. Mental Status Patient Orientation: Person, Place, Situation Transfers Functional [place] Measure 0=Not Assessed/NA 4=Minimal Assistance 1=Total Assistance 5=Supervision or Setup 2=Maximal Assistance 6=Modified [place] 3=Moderate Assistance 7=Complete IndependenceIRFPAI Quality Coding Scale 6 Independent with activity with or without an assistive device 5 Patient requires set up or clean up by helper. Patient completes activity by themselves 4 Supervision or touching assist (CGA). [place] provide cues , steadying assist 3 The helper provides less than half the effort to complete the activity 2 The helper provides more than half the effort to complete the activity 1 Dependent. The helper does all the effort to complete an activity 7 Patient refused to complete or attempt activity 9 The patient did not perform the activity before the current illness or injury 88 Not attempted due to Medical conditions or safety concerns Transfers (B, C, W/C) (FIM): 3 Sit to/from Stand: 3 Bed to/from Chair: 3 Cues for hand placement and positioning. Gait Training Gait (FIM): 1 Distance: 8'x5 Gait Level of Assist: 2 Gait Persons Needed: 1 Gait Assistive Device: Parallel Bars Patient leans heavily to the left, needs assist advancing his left leg and with balance. OT worked with positioning left arm during ambulation. Wheelchair Training Does the Pt Use a Wheelchair?: Yes Wheelchair (FIM): 4 Distance: 150' Type of Wheelchair: Manual Exercises seated lower extremity stretching, hamstring and gastroc Treatments Patient was transferred to wheelchair and taken to shower room, stood/undressed and sat on shower chair, took shower, dressed and taken to gym. Ambulated and stretching. See OT note for performance with dressing and bathing. PT worked on transfers, balance during ADL's, and ambulation, OT worked on bathing, dressing, and UE positioning during mobility activities. Assessment Current Status: Fair Progress Patient ambulated for the first time after his CVA. PT Short Term Goals Short Term Goals Time Frame: Apr 02, 2018 Transfers (B,C,W/C) (FIM): 3 Gait (FIM): 1 Gait Distance Comment: 20' Gait Level of Assist: 2 Gait Assistive Device: Cane Large Base Quad Wheelchair Distance: 150'x2 PT Custodial Goals Custodial Goals PT Custodial Goals Time Frame: Apr 16, 2018 Transfers (B,C,W/C) (FIM): 4 Sit to Lying (QC): 3 Lying-Sitting on Side/Bed(QC): 3 Sit to Stand (QC): 3 Rollin Roll Left to Right (QC): 3 Chair/Ssm-fh-Jfpdw Xfer(QC): 3 Car Transfer (QC): 3 Gait (FIM): 2 Distance: 50' Walk 10 feet (QC): 3 Walk 10ft-Uneven Surface(QC): 3 Walk 50ft with 2 Turns (QC): 3 Gait Level of Assist: 4 Gait Assistive Device: Cane Large Base Quad Wheelchair (FIM): 6 Distance: 200' Wheel 50 feet with 2 turns (QC: 6 PT Plan Problem List Problem List: Activity Tolerance, Functional Strength, Safety, Balance, Gait, Transfer, Bed Mobility, ROM Treatment/Plan Treatment Plan: Continue Plan of Care Treatment Plan: Bed Mobility, Concurrent Therapy, Education, Functional Activity Sukhdeep, Functional Strength, Group Therapy, Gait, Safety, Therapeutic Exercise, Transfers Treatment Duration: Apr 16, 2018 Frequency: At least 5 of 7 days/Wk (IRF) Estimated Hrs Per Day: 1.5 hours per day Patient and/or Family Agrees t: Yes Safety Risks/Education Patient Education: Gait Training, Transfer Techniques, Reviewed Use of Ice, W/ C Management, Safety Issues Teaching Recipient: Patient Teaching Methods: Demonstration, Discussion Response to Teaching: Reinforcement Needed Time/GCodes Time In: 0900 Time Out: 1000 Total Billed Treatment Time: 60 Total Billed Treatment 1 visit GT 20' EX 10' FA 30' CAMMY BLACK PT Mar 27, 2018 10:01
--- NOTE | 2018-03-27 10:22 | Occupational Ther Daily Note ---
OT Current Status-Daily Note Subjective Pt alert, sitting in recliner. Pt agrees to therapy. No c/o pain at this time. Mental Status/Objective Patient Orientation: Person, Place, Time, Situation Functional [place] Measure 0=Not Assessed/NA 4=Minimal Assistance 1=Total Assistance 5=Supervision or Setup 2=Maximal Assistance 6=Modified [place] 3=Moderate Assistance 7=Complete [place] ADL-Treatment Requires co-treat with PT for skilled care to completed functional activities. PT worked on transfers, ambulation and LE exercises. OT worked on ADLs, UE exercises and AROM. Pt completed shower using grabbar, hand held shower, long handle sponge and shower chair. Pt was able to bathe all areas using long handle sponge and shower chair with cut out. Assist to dry feet and buttocks. Assist x2 to complete lower body dressing. Mod A for upper body dressing. Set up and verbal cues to sequence grooming. Functional [place] Measure 0=Not Assessed/NA 4=Minimal Assistance 1=Total Assistance 5=Supervision or Setup 2=Maximal Assistance 6=Modified [place] 3=Moderate Assistance 7=Complete IndependenceIRFPAI Quality Coding Scale 6 Independent with activity with or without an assistive device 5 Patient requires set up or clean up by helper. Patient completes activity by themselves 4 Supervision or touching assist (CGA). [place] provide cues , steadying assist 3 The helper provides less than half the effort to complete the activity 2 The helper provides more than half the effort to complete the activity 1 Dependent. The helper does all the effort to complete an activity 7 Patient refused to complete or attempt activity 9 The patient did not perform the activity before the current illness or injury 88 Not attempted due to Medical conditions or safety concerns Eating (FIM): 2 (Per nrsg, pt's family feeds pt at this time. Discussed with pt that he needs to attempt himself.) Eating (QC): 2 Grooming (FIM): 5 Oral Hygiene (QC): 4 Bathing (FIM): 3 Bathing Location: L Arm, R Arm, L Upper Leg, R Upper Leg, L Lower Leg ( including foot), R Lower Leg (including foot), Chest, Abdomen, Buttocks, Perineal Area Shower/Bathe Self (QC): 3 Upper Body (FIM): 3 Upper Body Dressing (QC): 2 Lower Body Dressing (FIM): 1 Lower Body Dressing (QC): 1 On/Off Footwear (QC): 3 (Educated pt on donning/doffing socks with one handed technique) Shower Transfer(FIM): 1 Other Treatment Pt demonstrated active movement throughout L UE. Pt requires verbal and physical cues to isolate movement. Muscles fatigue easily and is only able to complete 5 reps at a time. Pt transferred with mod A from w/c to bed after therapy and assist to scoot self up in bed. Call light/phone in reach. All needs met in room. OT Short Term Goals Short Term Goals Time Frame: Apr 09, 2018 Eating(FIM): 6 Grooming(FIM): 5 Bathing(FIM): 4 Upper Body Dressing(FIM): 4 Lower Body Dressing(FIM): 3 Toileting(FIM): 4 Transfers (B,C,W/C) (FIM): 3 Toilet/Commode Transfer(FIM): 4 Shower Transfer(FIM): 4 Additional Short Term Goals: 1-Demonstrate ADL Tasks, 2-Verbalize Understanding , 3-ImproveStrength/Sukhdeep 1=Demonstrate adherence to instructed precautions during ADL tasks. 2=Patient will verbalize/demonstrate understanding of assistive devices/ modifications for ADL. 3=Patient will improve strength/tolerance for activity to enable patient to perform ADL's. OT Snf Goals Snf Goals Time Frame: Apr 23, 2018 Eating (FIM): 6 Eating (QC): 6 Groomin Oral Hygiene (QC): 6 Bathing(FIM): 5 Shower/Bathe Self (QC): 5 Upper Body Dressing(FIM): 5 Upper Body Dressing (QC): 5 Lower Body Dressing(FIM): 5 Lower Body Dressing (QC): 5 On/Off Footwear (QC): 5 Toileting(FIM): 6 Toileting Hygiene (QC): 6 Transfers (B,C,W/C) (FIM): 6 Toilet/Commode Transfer(FIM): 6 Toilet/Commode Transfer (QC): 6 Shower Transfer(FIM): 5 Additional Goals: 1-Demonstrate ADL Tasks, 2-Verbalize Understanding, 3- ImproveStrength/Sukhdeep 1=Demonstrate adherence to instructed precautions during ADL tasks. 2=Patient will verbalize/demonstrate understanding of assistive devices/ modifications for ADL. 3=Patient will improve strength/tolerance for activity to enable patient to perform ADL's. OT Education/Plan Discharge Recommendations Plan/Recommendations: Continue POC Treatment Plan/Plan of Care Patient would benefit from OT for education, treatment and training to promote independence in ADL's, mobility, safety and/or upper extremity function for ADL' s. Plan of Care: ADL Retraining, Functional Mobility, Group Exercise/Act as Ind, UE Funct Exercise/Act Treatment Duration: Apr 23, 2018 Frequency: At least 5 of 7 days/Wk (IRF) Estimated Hrs Per Day: 1.5 hours per day Agreement: Yes Rehab Potential: Good Time/GCodes Start Time: 09:00 Stop Time: 10:15 Total Time Billed (hr/min): 75 Billed Treatment Time 1 visit-ADL 4 (60 min) NM 1 (15 min) co-treat with PT 60 min individual 15 min JIMMY DHILLON Mar 27, 2018 10:22
[2018-03-27] MEDS: LEVOFLOXACIN 750 MG TAB (LEVAQUIN) PO SCH (11:14)
--- NOTE | 2018-03-27 15:04 | Physical Therapy Daily Note ---
PT Daily Note-Current Subjective Patient in bed pre tx, agrees to PT, no complains of pain. Appearance Patient BTB post tx with nurse call, phone, tray, all needs met. Family in the room. Mental Status Patient Orientation: Person, Place, Situation Transfers Functional [place] Measure 0=Not Assessed/NA 4=Minimal Assistance 1=Total Assistance 5=Supervision or Setup 2=Maximal Assistance 6=Modified [place] 3=Moderate Assistance 7=Complete IndependenceIRFPAI Quality Coding Scale 6 Independent with activity with or without an assistive device 5 Patient requires set up or clean up by helper. Patient completes activity by themselves 4 Supervision or touching assist (CGA). [place] provide cues , steadying assist 3 The helper provides less than half the effort to complete the activity 2 The helper provides more than half the effort to complete the activity 1 Dependent. The helper does all the effort to complete an activity 7 Patient refused to complete or attempt activity 9 The patient did not perform the activity before the current illness or injury 88 Not attempted due to Medical conditions or safety concerns Transfers (B, C, W/C) (FIM): 2 Scootin Rollin Supine to/from Sit: 3 Sit to/from Stand: 3 Bed to/from Chair: 3 Cues for positioning and safety, hand placement. Gait Training Gait (FIM): 1 Distance: 8'x6 Gait Level of Assist: 2 Gait Persons Needed: 1 Gait Assistive Device: Parallel Bars Patient is able to advance his left leg and bear weight on it, but does not have full extension of his left knee. He does need assist with balance and he adducts his left leg too much when stepping. Treatments bed mobility, transfers, ambulatioin Assessment Current Status: Fair Progress improving ambulation PT Short Term Goals Short Term Goals Time Frame: Apr 02, 2018 Transfers (B,C,W/C) (FIM): 3 Gait (FIM): 1 Gait Distance Comment: 20' Gait Level of Assist: 2 Gait Assistive Device: Cane Large Base Quad Wheelchair Distance: 150' PT Shelter Goals Braille Transcriber Goals PT Braille Transcriber Goals Time Frame: Apr 16, 2018 Transfers (B,C,W/C) (FIM): 4 Sit to Lying (QC): 3 Lying-Sitting on Side/Bed(QC): 3 Sit to Stand (QC): 3 Rollin Roll Left to Right (QC): 3 Chair/Qoo-ka-Qzmre Xfer(QC): 3 Car Transfer (QC): 3 Gait (FIM): 2 Distance: 50' Walk 10 feet (QC): 3 Walk 10ft-Uneven Surface(QC): 3 Walk 50ft with 2 Turns (QC): 3 Gait Level of Assist: 4 Gait Assistive Device: Cane Large Base Quad Wheelchair (FIM): 6 Distance: 200' Wheel 50 feet with 2 turns (QC: 6 PT Plan Problem List Problem List: Activity Tolerance, Functional Strength, Safety, Balance, Gait, Transfer, Bed Mobility, ROM Treatment/Plan Treatment Plan: Continue Plan of Care Treatment Plan: Bed Mobility, Concurrent Therapy, Education, Functional Activity Sukhdeep, Functional Strength, Group Therapy, Gait, Safety, Therapeutic Exercise, Transfers Treatment Duration: Apr 16, 2018 Frequency: At least 5 of 7 days/Wk (IRF) Estimated Hrs Per Day: 1.5 hours per day Patient and/or Family Agrees t: Yes Safety Risks/Education Patient Education: Gait Training, Transfer Techniques, Correct Positioning, Safety Issues Teaching Recipient: Patient Teaching Methods: Demonstration, Discussion Response to Teaching: Reinforcement Needed Time/GCodes Time In: 1430 Time Out: 1500 Total Billed Treatment Time: 30 Total Billed Treatment 1 visit FA 10' GT 20' CAMMY BLACK PT Mar 27, 2018 15:04
--- NOTE | 2018-03-27 15:28 | Speech Therapy Daily Note ---
Speech Daily Progress Note Subjective Date Seen by Provider: Mar 27, 2018 Time Seen by Provider: 11:45 Pt in bed. Pleasant and cooperative. Pain Numeric Pain Scale: 0-No Pain Objective Introduced Oral Motor Exercises to pt and his . Pt executed OMEs with max assist from HAZMAT CDL A DRIVER. Assessment Assessment Current Status: Good Progress Treatment Plan Continue Plan of Care Communication Comprehension: 6 Expression: 7 Social Cognition Social Interaction: 7 Problem Solvin Memory: 7 Speech Short Term Goals Short Term Goals Short Term Goals No STGs established at this time due to skilled ST was not indicated. Speech [facility] Goals Steel Checker Goals No LTGs were established as no skilled ST indicated at this time. Speech-Plan Patient/Family Goals Patient/Family Goals: to have regular diet with thin liquids. Treatment Plan Speech Therapy Treatment Plan: Continue Plan of Care Pt very cooperative and motivated. Treatment Duration: Mar 26, 2018 Frequency: 5 times per week Estimated Hrs Per Day: .5 hour per day Rehab Potential: Good Pt/Family Agrees to Plan: Yes Safety Risks/Education Teaching Recipient: Patient, Family Teaching Methods: Demonstration, Handout, Discussion Response to Teaching: Verbalize Understanding, Return Demonstration Time Speech Therapy Time In: 11:45 Speech Therapy Time Out: 12:15 Total Billed Time: 30 Billed Treatment Time 1, SLTS No MAGALY GARAY Mar 27, 2018 15:28
--- NOTE | 2018-03-27 16:34 | Consultation-Hospitalist ---
HPI History of Present Illness: HPI/Chief Complaint Mr. Guerin is a frail 73-year-old white male who developed abrupt onset of left upper quadrant pain on 18 March. 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 He was discharged with pain medication. On [address] scanning of the chest with contrast for evaluation of subcarinal fullness. It was felt to represent adenopathy a little more prominent than a previous CT scan of the chest in 2013 per radiologist report. No pulmonary abnormalities were reported. He also had significant cholelithiasis without symptoms to suggest cholecystitis. Sometime shortly thereafter he developed left-sided weakness and was transferred to [place] where he was noted to have a right sided CVA without evidence for significant extracranial vascular disease. He ultimately underwent cardiac catheterization as well which reportedly revealed mild hypokinesis with estimated ejection fraction of 40 percent he did have 3 patent grafts he had some disease in the PDA distal to his RCA graft and also had some disease in the obtuse marginal system that was not bypassed. Medical management was opted for however and the patient did not undergo any endovascular-based therapy. He is transferred back to our rehabilitation unit to continue redilatation for deficits that include left-sided hemiparesis as well as dysarthria and mild dysphasia. He reports that he has been swallowing without coughing on thickened liquids and solids. He denies abdominal pain but does note some sores in his mouth. He states that while he still has significant weakness he has had improvement in movement of the left upper extremity and left lower extremity. The left lower extremity is been affected to a lesser degree than left upper extremity. Past medical history seen for long-standing poorly controlled insulin requiring type II diabetes due to poor compliance with bolus therapy for many years. 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 For this reason he had not been on anticoagulant therapy for known underlying persistent atrial fibrillation. He had no previous known history of thromboembolic disease. He has been placed on eliquis and reports no change in vision and also denies ocular pain. He also was diagnosed with urinary tract infection and discharged on Levaquin to our facility. He also has known significant peripheral neuropathy and pressure ulceration with past osteomyelitis of the great toe requiring partial amputation on the left. In the past she's had multiple foot ulcers but is been some time since he last required treatment for diabetic-related foot ulceration. Date Seen 03/27/18 Attending Physician Sharath Carlin MD PCP Beverly Burleson MD Referring Physician Date of Admission Mar 25, 2018 at 17:41 Home Medications & Allergies Home Medications Reviewed patient Home Medication Reconciliation performed by pharmacy medication reconciliations parking technician and/or nursing. Patients Allergies have been reviewed. Allergies Allergies Coded Allergies Iodinated Contrast- Oral and IV Dye (Unverified Allergy, Mild, RASH, 01/06/07) Past Rftfimj-Tnsmcf-Lhyroa Hx Past Med/Social Hx: Reviewed and Corrections made Patient Social History Alcohol Use: Denies Use Recreational Drug Use: No Smoking Status: Never a Smoker 2nd Hand Smoke Exposure: No Physical Abuse Screen: No Sexual Abuse: No Recent Foreign Travel: No Contact w/other who traveled: No Recent Hopitalizations: Yes Recent Infectious Disease Expo: No Immunizations Up To Date Tetanus Booster (TDap): Less than 5yrs Date of Pneumonia Vaccine: Aug 18, 2015 Seasonal Allergies Seasonal Allergies: No Past Medical History Surgeries: Bladder Surgery, CABG, Coronary Stent, Eye Surgery, Prostatectomy Cardiac: Atrial Fibrillation, Coronary Artery Disease, Hypertension, Valvular Heart Disease Neurological: Neuropathy Reproductive: No HIV/AIDS: No Genitourinary: Prostate Problems Gastrointestinal: Gastroesophageal Reflux, Chronic Constipation, Chronic Diarrhea Endocrine: Diabetes, Insulin dep Are Your Blood Sugars Over 250: Yes HEENT: Cataract Loss of Vision: Denies Hearing Impairment: Hard of Hearing Cancer: BENIGN TUMOR EAR CATARACTS HAND, CARPAL TUNNEL Skin/Integumentary: Recent Skin Changes History of Blood Disorders: No Adverse Reaction to Blood Moses: No Family History Diabetes mellitus 19 MOTHER, G8 SISTER FH: breast cancer 19 MOTHER, FH: emphysema 19 FATHER, FH: prostate cancer 19 FATHER, FH: stroke son Myocardial infarction son Diabetes, Stroke Review of Systems Constitutional: weakness Respiratory: cough (Dry a she denies that he gets worse with eating or drinking.), dyspnea on exertion; No hemoptysis, No orthopnea, No phlegm, No short of breath, No stridor, No wheezing, No other Cardiovascular: no symptoms reported, see HPI; No chest pain, No edema; Hx of Intervention; No palpitations, No syncope; vascular heart diseas; No other Gastrointestinal: No RUQ, No LUQ, No RLQ, No LLQ, No abdominal pain, No constipation, No diarrhea, No dysphagia, No hematemesis, No heartburn, No jaundice, No loss of appetite, No melena, No nausea, No vomiting, No other Genitourinary: No decreased output, No discharge, No dysuria, No frequency, No hematuria, No hesitancy, No incontinence; nocturia (Stable); No pain, No other Psychiatric/Neurological: Depressed (Denies suicidal ideation) Physical Exam Physical Exam Vital Signs Vital Signs - First Documented 03/25/18 03/25/18 17:19 19:54 Temp 98.8 Pulse 83 Resp 20 B/P (MAP) 136/74 (94) Pulse Ox 98 O2 Delivery Room Air Capillary Refill : Height, Weight, BMI Height: 6'3.00" Weight: 170lbs. 2.0oz. [id number]; 20.0 BMI Method:Stated General Appearance: No Apparent Distress, Chronically ill HEENT: PERRL/EOMI, Other (Whitish plaques on tongue as well as buccal mucosa with some underlying erythema no ulceration noted) Neck: Full Range of Motion, Normal Inspection, Non Tender, Supple, Carotid Bruit Respiratory: Chest Non Tender, Lungs Clear, Normal Breath Sounds, No Accessory Muscle Use, No Respiratory Distress Cardiovascular: No Edema, No Gallop, No JVD, Normal Peripheral Pulses, Systolic Murmur (2/6 heard best over the aortic outflow tract.), Irregularly Irregular Gastrointestinal: Normal Bowel Sounds, No Organomegaly, No Pulsatile Mass, Non Tender, Soft Extremity: No Pedal Edema Neurologic/Psychiatric: Alert, Oriented x3, Motor Weakness (Left upper extremity greater than right), Other (Very mild dysarthria per patient's report improved significantly I had no difficulty understanding him today.) Skin: Pallor Results Results/Procedures Labs Patient resulted labs reviewed. Assessment/Plan Assessment and Plan Assess & Plan/Chief Complaint 1. 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 Considering splenic infarct likely embolic as well we did discuss the risk of anticoagulant therapy and recurrent hemorrhage versus benefits. In my estimation benefits significantly outweigh risk as she would be highly likely to continue to have embolic symptoms. The downside would be retinal hemorrhages would likely lead to blindness in the affected eye. Patient agrees with continuing anticoagulant therapy. 2. Known significant coronary artery disease with mild LV systolic dysfunction continue baby aspirin daily. 3. Type II diabetes mellitus insulin requiring blood sugars under very good control he had one level of 63 this morning and his Levemir was held we will decrease to 10 units twice a day. 4. Thrush nystatin has been initiated continue to monitor. 5. Chronic atrial fibrillation currently rate controlled. 6. Reported urinary tract infection we'll repeat a UA and if unremarkable can discontinue antibiotic therapy. 7. Carinal fullness possible adenopathy considering the patient's frailty and multiple medical symptoms we will see about obtaining PET scan as an outpatient. Clinical Quality Measures DVT/VTE Risk/Contraindication: Risk Factor Score Per Nursin RFS Level Per Nursing on Admit: 4+=Very High Copy Copies To 1: BEVERLY BURLESON MD, MARK D MD Mar 27, 2018 16:34
[2018-03-27] MEDS: NYSTATIN ORAL SUSP 5 ML UDC PO SCH (18:19)
[2018-03-27 18:53] VITALS: BP 147/76
[2018-03-27] MEDS: ATORVASTATIN 40 MG (LIPITOR) TABLET PO SCH (21:33)
[2018-03-27 21:55] LABS: BILIRUBIN,URINE NEGATIVE (NEGATIVE); CLARITY,URINE CLEAR; COLOR,URINE YELLOW; GLUCOSE, URINE (UA) NEGATIVE (NEGATIVE); KETONES,URINE NEGATIVE (NEGATIVE); LEUKOCYTE ESTERASE ,URINE 1+ (NEGATIVE); NITRITE,URINE NEGATIVE (NEGATIVE); PH,URINE 5 (5-9); PROTEIN,URINE 2+ (NEGATIVE); UROBILINOGEN,URINE NORMAL (NORMAL)
[2018-03-27 22:06] LABS: BACTERIA,URINE NEGATIVE /HPF; WBC,URINE RARE /HPF
[2018-03-28] MEDS: NYSTATIN ORAL SUSP 5 ML UDC PO SCH ×5 (00:28→23:40)
[2018-03-28 05:55] VITALS: BP 132/56
[2018-03-28] MEDS: inSUlin ASPART (NovoLOG) 1 UNIT/0.01 ML (CHARGE PER UNIT) SC SCH ×4 (05:56→21:03)
[2018-03-28 08:15] VITALS: BP 151/74
[2018-03-28] MEDS: ASPIRIN E.C. 81 MG (ECOTRIN) TAB PO SCH (08:36)
[2018-03-28] MEDS: AMIODARONE 200 MG (CORDARONE) TAB PO SCH ×2 (08:36→21:03)
[2018-03-28] MEDS: LORATADINE (CLARITIN) 10 MG TAB PO SCH (08:37)
[2018-03-28] MEDS: FLUoxetine HCL 10 MG (PROzac) CAPSULE/TABLET PO SCH (08:37)
[2018-03-28] MEDS: APIXABAN 5 MG (ELIQUIS) TABLET PO SCH ×2 (08:37→21:03)
[2018-03-28] MEDS: ACETAMINOPHEN 325 MG TABLET PO PRN ×2 (08:42→17:04)
[2018-03-28] MEDS: inSUlin DETERMIR 1 UNIT/0.01 ML (LEVEMIR) CHARGE PER UNIT SQ SCH ×2 (08:42→21:03)
[2018-03-28] MEDS: FLUTICASONE NASAL SPRAY (FLONASE) 16 GM BTL NS SCH (08:43)
[2018-03-28] MEDS: CIPROFLOXACIN 0.3% (CILOXAN) 2.5 ML BTL OP SCH ×4 (08:45→21:04)
[2018-03-28 09:18] LABS: BASOPHILS % (AUTO) 0 % (0-10); EOSINOPHILS # (AUTO) 0.2 10^3/uL (0.0-0.3); EOSINOPHILS % (AUTO) 1 % (0-10); HEMATOCRIT 38 % (40-54); HEMOGLOBIN 12.4 G/DL (13.3-17.7); LYMPHOCYTES % (AUTO) 8 % (12-44); MEAN CORPUSCULAR HEMOGLOBIN 27 PG (25-34); MEAN CORPUSCULAR HGB CONC 33 G/DL (32-36); MEAN CORPUSCULAR VOLUME 84 FL (80-99); MEAN PLATELET VOLUME 9.4 FL (7.4-10.4); MONOCYTES # (AUTO) 0.8 X 10^3 (0.0-1.0); MONOCYTES % (AUTO) 7 % (0-12); NEUTROPHILS # (AUTO) 10.3 X 10^3 (1.8-7.8); NEUTROPHILS % (AUTO) 84 % (42-75); PLATELET COUNT 352 10^3/uL (130-400); RED BLOOD COUNT 4.55 10^6/uL (4.35-5.85); RED CELL DISTRIBUTION WIDTH 16.3 % (10.0-14.5); WHITE BLOOD COUNT 12.3 10^3/uL (4.3-11.0)
[2018-03-28 09:36] LABS: ALANINE AMINOTRANSFERASE 24 U/L (0-55); ALBUMIN 3.6 GM/DL (3.2-4.5); ALKALINE PHOSPHATASE 42 U/L (40-136); BILIRUBIN,TOTAL 1.4 MG/DL (0.1-1.0); BUN/CREATININE RATIO 22; CALCIUM 8.8 MG/DL (8.5-10.1); CARBON DIOXIDE 28 MMOL/L (21-32); CHLORIDE 105 MMOL/L (98-107); CREATININE SERUM 1.17 MG/DL (0.60-1.30); GFR ESTIMATED > 60; GLUCOSE 242 MG/DL (70-105); SODIUM 141 MMOL/L (135-145); TOTAL PROTEIN 6.6 GM/DL (6.4-8.2)
[2018-03-28] MEDS: CLOPIDOGREL 75 MG (PLAVIX) TABLET PO SCH (10:26)
--- NOTE | 2018-03-28 10:57 | Occupational Ther Daily Note ---
OT Current Status-Daily Note Subjective Pt seen in room, up in recliner, agreeable to OT. Pt reported chest pain that comes and goes, nursing notified. Appearance Alert, cooperative Mental Status/Objective Functional Tripp Measure 0=Not Assessed/NA 4=Minimal Assistance 1=Total Assistance 5=Supervision or Setup 2=Maximal Assistance 6=Modified Tripp 3=Moderate Assistance 7=Complete Tripp ADL-Treatment Pt was able to feed himself, using R hand, and get a drink. May benefit from non -skid surface under bowl to hold it while scooping. Able to find food on L side of tray. Also worked on upper body dressing. Pt able to doff t shirt and don with min assist and cues for getting L UE into shirt and up over elbow. Some active L shoulder and supination movements observed during dressing. Able to sit edge of chair to dress. Nursing reported that pt was to get an EKG to therapy halted. Pt left up in recliner, present throughout tx, all needs met. Functional Tripp Measure 0=Not Assessed/NA 4=Minimal Assistance 1=Total Assistance 5=Supervision or Setup 2=Maximal Assistance 6=Modified Tripp 3=Moderate Assistance 7=Complete IndependenceIRFPAI Quality Coding Scale 6 Independent with activity with or without an assistive device 5 Patient requires set up or clean up by helper. Patient completes activity by themselves 4 Supervision or touching assist (CGA). [place] provide cues , steadying assist 3 The helper provides less than half the effort to complete the activity 2 The helper provides more than half the effort to complete the activity 1 Dependent. The helper does all the effort to complete an activity 7 Patient refused to complete or attempt activity 9 The patient did not perform the activity before the current illness or injury 88 Not attempted due to Medical conditions or safety concerns Eating (FIM): 5 (setup) Upper Body (FIM): 4 (min assist) Education OT Patient Education: Modified ADL techniques, Progress toward Goal/Update tx plan, Purpose of tx/functional activities Teaching Recipient: Patient Teaching Methods: Demonstration, Discussion Response to Teaching: Verbalize Understanding, Return Demonstration, Reinforcement Needed OT Short Term Goals Short Term Goals Time Frame: Apr 09, 2018 Eating(FIM): 6 Grooming(FIM): 5 Bathing(FIM): 4 Upper Body Dressing(FIM): 4 Lower Body Dressing(FIM): 3 Toileting(FIM): 4 Transfers (B,C,W/C) (FIM): 3 Toilet/Commode Transfer(FIM): 4 Shower Transfer(FIM): 4 Additional Short Term Goals: 1-Demonstrate ADL Tasks, 2-Verbalize Understanding , 3-ImproveStrength/Sukhdeep 1=Demonstrate adherence to instructed precautions during ADL tasks. 2=Patient will verbalize/demonstrate understanding of assistive devices/ modifications for ADL. 3=Patient will improve strength/tolerance for activity to enable patient to perform ADL's. OT Tube Bender Hand Goals Tube Bender Hand Goals Time Frame: Apr 23, 2018 Eating (FIM): 6 Eating (QC): 6 Groomin Oral Hygiene (QC): 6 Bathing(FIM): 5 Shower/Bathe Self (QC): 5 Upper Body Dressing(FIM): 5 Upper Body Dressing (QC): 5 Lower Body Dressing(FIM): 5 Lower Body Dressing (QC): 5 On/Off Footwear (QC): 5 Toileting(FIM): 6 Toileting Hygiene (QC): 6 Transfers (B,C,W/C) (FIM): 6 Toilet/Commode Transfer(FIM): 6 Toilet/Commode Transfer (QC): 6 Shower Transfer(FIM): 5 Additional Goals: 1-Demonstrate ADL Tasks, 2-Verbalize Understanding, 3- ImproveStrength/Sukhdeep 1=Demonstrate adherence to instructed precautions during ADL tasks. 2=Patient will verbalize/demonstrate understanding of assistive devices/ modifications for ADL. 3=Patient will improve strength/tolerance for activity to enable patient to perform ADL's. OT Education/Plan Discharge Recommendations Plan/Recommendations: Continue POC Treatment Plan/Plan of Care Patient would benefit from OT for education, treatment and training to promote independence in ADL's, mobility, safety and/or upper extremity function for ADL' s. Plan of Care: ADL Retraining, Functional Mobility, Group Exercise/Act as Ind, UE Funct Exercise/Act Treatment Duration: Apr 23, 2018 Frequency: At least 5 of 7 days/Wk (IRF) Estimated Hrs Per Day: 1.5 hours per day Agreement: Yes Rehab Potential: Good Time/GCodes Start Time: 08:30 Stop Time: 08:53 Total Time Billed (hr/min): 23 Billed Treatment Time visit, 23 minutes ADL HIEN HINTON OT Mar 28, 2018 10:57
[2018-03-28] MEDS: LEVOFLOXACIN 750 MG TAB (LEVAQUIN) PO SCH (11:07)
--- NOTE | 2018-03-28 13:05 | Progress Note-Hospitalist ---
Subjective HPI/CC On Admission Date Seen by Provider: Mar 28, 2018 Time Seen by Provider: 12:59 Mr. Guerin is a frail 73-year-old white male who developed abrupt onset of left upper quadrant pain on 18 March. 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 He was discharged with pain medication. On [address] scanning of the chest with contrast for evaluation of subcarinal fullness. It was felt to represent adenopathy a little more prominent than a previous CT scan of the chest in 2012 per radiologist report. No pulmonary abnormalities were reported. He also had significant cholelithiasis without symptoms to suggest cholecystitis. Sometime shortly thereafter he developed left-sided weakness and was transferred to [place] where he was noted to have a right sided CVA without evidence for significant extracranial vascular disease. He ultimately underwent cardiac catheterization as well which reportedly revealed mild hypokinesis with estimated ejection fraction of 40 percent he did have 3 patent grafts he had some disease in the PDA distal to his RCA graft and also had some disease in the obtuse marginal system that was not bypassed. Medical management was opted for however and the patient did not undergo any endovascular-based therapy. He is transferred back to our rehabilitation unit to continue redilatation for deficits that include left-sided hemiparesis as well as dysarthria and mild dysphasia. He reports that he has been swallowing without coughing on thickened liquids and solids. He denies abdominal pain but does note some sores in his mouth. He states that while he still has significant weakness he has had improvement in movement of the left upper extremity and left lower extremity. The left lower extremity is been affected to a lesser degree than left upper extremity. Past medical history seen for long-standing poorly controlled insulin requiring type II diabetes due to poor compliance with bolus therapy for many years. 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 For this reason he had not been on anticoagulant therapy for known underlying persistent atrial fibrillation. He had no previous known history of thromboembolic disease. He has been placed on eliquis and reports no change in vision and also denies ocular pain. He also was diagnosed with urinary tract infection and discharged on Levaquin to our facility. He also has known significant peripheral neuropathy and pressure ulceration with past osteomyelitis of the great toe requiring partial amputation on the left. In the past she's had multiple foot ulcers but is been some time since he last required treatment for diabetic-related foot ulceration. Subjective/Events-last exam Called to bedside given concerns about chest pressure. He states that since starting rehab 2-3 days ago he has had intermittent chest pressure that improves with rest. He denies any radiation or SOB. He described it as pressure that is substernal but thinks it may be due to heart burn. Objective Exam Vital Signs Vital Signs Date Time Temp Pulse Resp B/P (MAP) Pulse Ox O2 Delivery O2 Flow Rate FiO2 03/28/18 05:55 98.6 76 18 132/56 (81) 96 Room Air Capillary Refill : General Appearance: No Apparent Distress, WD/WN Cardiovascular: No JVD, Normal Peripheral Pulses, Irregularly Irregular Gastrointestinal: Normal Bowel Sounds, Non Tender, Soft Extremity: No Calf Tenderness, No Pedal Edema Neurologic/Psychiatric: Alert, Oriented x3, Normal Mood/Affect Results/Procedures Lab Laboratory Tests 03/28/18 09:10 Patient resulted labs reviewed. Assessment/Plan Assessment and Plan Assess & Plan/Chief Complaint Chest pain Review previous notes- had recent cardiac cath that revealed patent grafts from 3 vessel CABG and moderate CAD but no intervention performed Advised to defer from therapy until chest pain further evaluated CBC, BMP, Troponin, EKG ordered Discussed with Dr House who will see the patient and recommended DC-ing ASA and starting plavix Will add Pepcid as well Clinical Quality Measures DVT/VTE Risk/Contraindication: Risk Factor Score Per Nursin RFS Level Per Nursing on Admit: 4+=Very High YO QUEEN MD Mar 28, 2018 1:05 pm
[2018-03-28] MEDS: FAMOTIDINE 20 MG (PEPCID) TABLET PO SCH ×2 (13:29→21:03)
--- NOTE | 2018-03-28 15:31 | Consultation-Cardiology ---
HPI-Cardiology Cardiology Consultation: Date of Consultation 03/28/18 Date of Admission Attending Physician Sharath Carlin MD Admitting Physician Thai Burleson MD Consulting Physician Boby HOUSE MD HPI: Time Seen by Provider: 17:41 Chief Complaint: Chest pressure This is a 73-year-old gentleman who has history of splenic artery thrombosis with infarct. He then had left-sided weakness and was noted to have right- sided CVA without evidence of significant extracranial vascular disease. He underwent cardiac catheterization on March 24 which revealed mild hypokinesis with an EF of 40 percent. 3 patent grafts disease was noted in the PDA distal to the RCA graft and also some disease in the OM. No PCI was done. Medical management. He was transferred to our hospital for inpatient rehabilitation. He has some residual left sided weakness. The patient also has history of diabetes with an organ damage. He has history of persistent atrial fibrillation and is on Eliquis. Cardiology was consulted for chest pressure. 4 out of 10. PPI was given which improved the discomfort. EKG shows atrial fibrillation with no ST-T wave abnormalities. Troponin 2 are negative. Review of Systems-Cardiology Review of Systems Constitutional: As described under HPI; No As described under HPI, No no symptoms reported, No chills, No fever, No lightheadedness Eyes: No As described under HPI, No no symptoms reported, No blindness, No blurred vision, No contact lenses, No drainage, No decreased acuity, No foreign body sensation, No pain, No vision change Ears/Nose/Throat: No As described under HPI, No no symptoms reported, No chronic hearing loss, No ear discharge, No ear pain, No nasal drainage, No ulcerations Respiratory: No no symptoms reported; As described under HPI; No As described under HPI, No cough, No orthopnea, No shortness of breath, No SOB with excertion Cardiovascular: No no symptoms reported; As described under HPI; No As described under HPI; chest pain; No edema, No irregular heart rate, No lightheadedness, No palpitations Gastrointestinal: No no symptoms reported, No As described under HPI, No abdomen distended, No abdominal pain, No blood streaked bowels, No constipation , No diarrhea, No nausea, No vomiting, No stool coloration changes Genitourinary: No As described under HPI, No burning, No dysuria, No discharge , No frequency, No flank pain, No hematuria, No urgency Skin: No rash, No skin related problems, No ulcerations Psychiatric/Neurological: As described under HPI; No anxiety, No depression, No seizure, No focal weakness, No syncope Hematologic: No bleeding abnormalities CSL-Admceh-Oraeiw Hx Patient Social History Alcohol Use: Denies Use Recreational Drug Use: No Smoking Status: Never a Smoker 2nd Hand Smoke Exposure: No Recent Foreign Travel: No Recent Infectious Disease Expo: No Hospitalization with Isolation: Denies Physical Abuse Screen: No Sexual Abuse: No Immunizations Up To Date Tetanus Booster (TDap): Less than 5yrs Date of Pneumonia Vaccine: Aug 18, 2015 Past Medical History PMH As described under Assessment. Family Medical History Family History: Diabetes mellitus 19 MOTHER, G8 SISTER FH: breast cancer 19 MOTHER, FH: emphysema 19 FATHER, FH: prostate cancer 19 FATHER, FH: stroke son Myocardial infarction son Allergies and Home Medications Allergies Coded Allergies: Iodinated Contrast- Oral and IV Dye (Unverified Allergy, Mild, RASH, ) Home Medications Amiodarone HCl 400 Mg Tablet, 200 MG PO BID, (Reported) TAKES 1/2 (400MG) TABLET Cetirizine HCl 10 Mg Tablet, 10 MG PO DAILY, (Reported) Fluticasone Propionate 16 Gm [place].susp, 2 SPRAY NS BID, (Reported) Insulin Detemir 100 Unit/1 Ml Insuln.pen, 25 UNIT SQ Q12H, (Reported) Insulin Lispro 100 Unit/1 Ml Insuln.pen, 30 UNITS SC AC, (Reported) Patient Home Medication List Home Medication List Reviewed: Yes Physical Exam-Cardiology Physical Exam Vital Signs/I&O 03/28/18 03/28/18 03/28/18 03/28/18 05:55 08:15 09:00 17:39 Temp 98.6 98.1 Pulse 76 79 96 Resp 18 20 20 B/P (MAP) 132/56 (81) 151/74 (99) 123/85 (98) Pulse Ox 96 97 98 O2 Delivery Room Air Room Air Room Air Room Air 03/28/18 00:00 Intake Total 500 ml Balance 500 ml Capillary Refill : Constitutional: appears stated age, AAO x 3; No apparent distress; well- developed, well-nourished HEENT: PERRL; No discharge; hearing is well preserved, oral hygience is good; No ulceration, No xanthelasmas are seen Neck: No carotid bruit; carotid pulses are 2 + bilaterally Respiratory: No accessory muscle use, No respiratory distress, No chest tender , No chest expansion is symmetric; chest is bilaterally symmetric; No lungs clear to percussion; lungs clear to auscultation; No crackles, No rhonchi, No rales, No stridor, No wheezing, No pleural rub, No other Cardiovascular: No regular rate-rhythm; irregularly irregular; No extra beats, No parasternal heave is noted, No JVD, No edema, No bradycardia, No tachycardia , No point of maximal impulse, No cardiac thrills are palpable; S1 and S2; No gallop/S3, No gallop/S4, No diastolic murmur; systolic murmur; No friction rub, No click, No other Gastrointestinal: No tender, No soft, No round, No distended, No pulsatile mass , No organomegaly, No guarding, No rebound, No tenderness, No hernia, No mass, No audible bowel sounds, No abnormal bowel sounds, No abdominal bruits, No spleenomegaly, No other Rectal: deferred Extremities: No normal range of motion, No non-tender, No normal inspection, No pedal edema, No calf tenderness, No normal capillary refill, No pelvis stable , No calf tenderness, No inflammation, No pedal edema, No slow capillary refill , No swelling, No other, No abrasion, No clubbing, No cyanosis, No ecchymosis, No laceration, No no lower extremity edema bilateral, No significant edema, No tenderness, No wound Neurologic/Psychiatric: alert, oriented x 3, motor weakness Skin: No normal color, No warm/dry, No cyanosis, No cool, No diaphoresis, No damp, No ecchymosis, No jaundice, No mottled, No pallor, No rash, No tattoos/ piercings, No ulcerations, No rash on exposed areas, No ulcerations on exposed areas, No other Data Review Labs Laboratory Tests 03/27/18 20:08: Glucometer 206H 03/27/18 21:52: Urine Color YELLOW, Urine Clarity CLEAR, Urine pH 5, Urine Specific [place] 1.020, Urine Protein 2+H, Urine Glucose (UA) NEGATIVE, Urine Ketones NEGATIVE, Urine Nitrite NEGATIVE, Urine Bilirubin NEGATIVE, Urine Urobilinogen NORMAL, Urine Leukocyte Esterase 1+H, Urine RBC (Auto) 1+H, Urine RBC 2-5H, Urine WBC RARE, Urine Crystals NONE, Urine Bacteria NEGATIVE, Urine Casts NONE, Urine Mucus NEGATIVE, Urine Culture Indicated NO 03/28/18 05:39: Glucometer 179H 03/28/18 09:10: White Blood Count 12.3H, Red Blood Count 4.55, Hemoglobin 12.4L, Hematocrit 38L , Mean Corpuscular Volume 84, Mean Corpuscular Hemoglobin 27, Mean Corpuscular Hemoglobin Concent 33, Red Cell Distribution Width 16.3H, Platelet Count 352, Mean Platelet Volume 9.4, Neutrophils (%) (Auto) 84H, Lymphocytes (%) (Auto) 8L , Monocytes (%) (Auto) 7, Eosinophils (%) (Auto) 1, Basophils (%) (Auto) 0, Neutrophils # (Auto) 10.3H, Lymphocytes # (Auto) 1.0, Monocytes # (Auto) 0.8, Eosinophils # (Auto) 0.2, Basophils # (Auto) 0.0, Sodium Level 141, Potassium Level 4.0, Chloride Level 105, Carbon Dioxide Level 28, Anion Gap 8, Blood Urea Nitrogen 26H, Creatinine 1.17, Estimat Glomerular Filtration Rate > 60, BUN/ Creatinine Ratio 22, Glucose Level 242H, Calcium Level 8.8, Corrected Calcium 9.1, Total Bilirubin 1.4H, Aspartate Amino Transf (AST/SGOT) 28, Alanine Aminotransferase (ALT/SGPT) 24, Alkaline Phosphatase 42, Troponin I < 0.30, Total Protein 6.6, Albumin 3.6 03/28/18 11:01: Glucometer 260H 03/28/18 14:50: Troponin I < 0.30 03/28/18 16:14: Glucometer 329H ECG Impression ECG Initial ECG Impression: Atrial Fibrillation A/P-Cardiology Assessment/Admission Diagnosis Frequent thromboembolic event, Persistent Atrial fibrillation, CAD, CABG, Ischemic cardiomyopathy, Aortic stenosis, Chest pain Plan Chest pain: Responded to PPI. Acute coronary syndrome ruled out with serial negative troponin and negative EKG. I will discontinue aspirin and start Plavix. Continue Eliquis. Continue telemetry for the next 24 hours and then discontinue if no events. CAD/CABG: Recent coronary angiography at [facility] showed patent grafts with distal disease not am and able to PCI. Medical therapy was recommended. Recurrent CVA/thromboembolic events: On Eliquis. Persistent atrial fibrillation on amiodarone and Eliquis. Also on diltiazem and beta sammie. Ischemic cardiomyopathy: On metoprolol. Thank you for your consultation. Please call me if you have any questions. Malcolm House MD, FACP, FACC, FSCAI, FHRS, CCDS Interventional Cardiology Cardiac Electrophysiology Vascular Medicine and Endovascular Interventions Clinical Quality Measures DVT/VTE Risk/Contraindication: Risk Factor Score Per Nursin RFS Level Per Nursing on Admit: 4+=Very High Boby HOUSE MD Mar 28, 2018 3:31 pm
[2018-03-28] MEDS ORDERED: ISOSORBIDE MONONITRATE 30 MG (IMDUR) TAB PO ONE (17:30)
[2018-03-28 17:39] VITALS: BP 123/85
[2018-03-28] MEDS: ATORVASTATIN 40 MG (LIPITOR) TABLET PO SCH (21:03)
[2018-03-29] MEDS: NYSTATIN ORAL SUSP 5 ML UDC PO SCH ×4 (05:30→23:59)
[2018-03-29 06:00] VITALS: BP 133/68
[2018-03-29] MEDS: CLOPIDOGREL 75 MG (PLAVIX) TABLET PO SCH (08:20)
[2018-03-29] MEDS: FLUoxetine HCL 10 MG (PROzac) CAPSULE/TABLET PO SCH (08:20)
[2018-03-29] MEDS: LORATADINE (CLARITIN) 10 MG TAB PO SCH (08:20)
[2018-03-29] MEDS: FAMOTIDINE 20 MG (PEPCID) TABLET PO SCH ×2 (08:20→21:28)
[2018-03-29] MEDS: AMIODARONE 200 MG (CORDARONE) TAB PO SCH ×2 (08:20→21:28)
[2018-03-29] MEDS: APIXABAN 5 MG (ELIQUIS) TABLET PO SCH ×2 (08:20→21:28)
[2018-03-29] MEDS: FLUTICASONE NASAL SPRAY (FLONASE) 16 GM BTL NS SCH (08:24)
[2018-03-29] MEDS: CIPROFLOXACIN 0.3% (CILOXAN) 2.5 ML BTL OP SCH ×4 (08:31→21:30)
[2018-03-29] MEDS: inSUlin ASPART (NovoLOG) 1 UNIT/0.01 ML (CHARGE PER UNIT) SC SCH ×4 (08:31→21:28)
[2018-03-29] MEDS: inSUlin DETERMIR 1 UNIT/0.01 ML (LEVEMIR) CHARGE PER UNIT SQ SCH ×2 (08:31→21:29)
[2018-03-29] MEDS: LEVOFLOXACIN 750 MG TAB (LEVAQUIN) PO SCH (11:44)
--- NOTE | 2018-03-29 13:43 | Cardiology Progress Note ---
Cardiology SOAP Progress Note Subjective: No further chest pain. Objective: I&O/Vital Signs 03/29/18 03/29/18 03/29/18 06:00 07:00 09:00 Temp 98.7 Pulse 78 76 Resp 20 B/P (MAP) 133/68 (89) O2 Delivery Room Air Room Air 03/29/18 00:00 Intake Total 600 ml Output Total 400 ml Balance 200 ml Weight (Pounds): 170 Weight (Ounces): 2.0 Weight (Calculated Kilograms): [id number] Constitutional: appears stated age, AAO x 3; No apparent distress; well- developed, well-nourished Respiratory: No accessory muscle use, No respiratory distress, No chest tender , No chest expansion is symmetric; chest is bilaterally symmetric; No lungs clear to percussion; lungs clear to auscultation; No crackles, No rhonchi, No rales, No stridor, No wheezing, No pleural rub, No other Cardiovascular: No regular rate-rhythm; irregularly irregular; No extra beats, No parasternal heave is noted, No JVD, No edema, No bradycardia, No tachycardia , No point of maximal impulse, No cardiac thrills are palpable; S1 and S2; No gallop/S3, No gallop/S4, No diastolic murmur; systolic murmur; No friction rub, No click, No other Gastrointestional: No tender, No soft, No round, No distended, No pulsatile mass, No organomegaly, No guarding, No rebound, No tenderness, No hernia, No mass, No audible bowel sounds, No abnormal bowel sounds, No abdominal bruits, No spleenomegaly, No other Extremities: No normal range of motion, No non-tender, No normal inspection, No pedal edema, No calf tenderness, No normal capillary refill, No pelvis stable , No calf tenderness, No inflammation, No pedal edema, No slow capillary refill , No swelling, No other, No abrasion, No clubbing, No cyanosis, No ecchymosis, No laceration, No no lower extremity edema bilateral, No significant edema, No tenderness, No wound Neurologic/Psychiatric: alert, oriented x 3, motor weakness Skin: No normal color, No warm/dry, No cyanosis, No cool, No diaphoresis, No damp, No ecchymosis, No jaundice, No mottled, No pallor, No rash, No tattoos/ piercings, No ulcerations, No rash on exposed areas, No ulcerations on exposed areas, No other Results/Procedures: Labs Laboratory Tests 03/28/18 14:50: Troponin I < 0.30 03/28/18 16:14: Glucometer 329H 03/28/18 20:49: Glucometer 242H 03/29/18 05:25: Glucometer 183H 03/29/18 11:19: Glucometer 220H A/P: Assessment/Dx: Frequent thromboembolic event, Persistent Atrial fibrillation, CAD, CABG, Ischemic cardiomyopathy, Aortic stenosis, Chest pain Plan: Chest pain: Responded to PPI. Acute coronary syndrome ruled out with serial negative troponin and negative EKG. I will discontinue aspirin and start Plavix. Continue Eliquis. Discontinue telemetry. CAD/CABG: Recent coronary angiography at [facility] showed patent grafts with distal disease not am and able to PCI. Medical therapy was recommended. Recurrent CVA/thromboembolic events: On Eliquis. Persistent atrial fibrillation on amiodarone and Eliquis. Also on diltiazem and beta sammie. Ischemic cardiomyopathy: On metoprolol. Thank you for your consultation. Please call me if you have any questions. Malcolm House MD, FACP, FACC, FSCAI, FHRS, CCDS Interventional Cardiology Cardiac Electrophysiology Vascular Medicine and Endovascular Interventions Boby HOUSE MD Mar 29, 2018 1:43 pm
[2018-03-29 17:52] VITALS: BP 148/65
[2018-03-29] MEDS: ATORVASTATIN 40 MG (LIPITOR) TABLET PO SCH (21:28)
[2018-03-29] MEDS: ACETAMINOPHEN 325 MG TABLET PO PRN (23:59)
[2018-03-30] VITALS: BP 138/71
[2018-03-30 06:30] VITALS: BP 130/56
[2018-03-30] MEDS: NYSTATIN ORAL SUSP 5 ML UDC PO SCH ×3 (06:36→17:16)
[2018-03-30] MEDS: inSUlin ASPART (NovoLOG) 1 UNIT/0.01 ML (CHARGE PER UNIT) SC SCH ×4 (06:45→21:59)
[2018-03-30] MEDS: APIXABAN 5 MG (ELIQUIS) TABLET PO SCH ×2 (08:28→22:14)
[2018-03-30] MEDS: FAMOTIDINE 20 MG (PEPCID) TABLET PO SCH ×2 (08:28→22:24)
[2018-03-30] MEDS: AMIODARONE 200 MG (CORDARONE) TAB PO SCH ×2 (08:28→22:14)
[2018-03-30] MEDS: LORATADINE (CLARITIN) 10 MG TAB PO SCH (08:28)
[2018-03-30] MEDS: CLOPIDOGREL 75 MG (PLAVIX) TABLET PO SCH (08:28)
[2018-03-30] MEDS: FLUoxetine HCL 10 MG (PROzac) CAPSULE/TABLET PO SCH (08:28)
[2018-03-30] MEDS: inSUlin DETERMIR 1 UNIT/0.01 ML (LEVEMIR) CHARGE PER UNIT SQ SCH ×2 (08:29→22:16)
[2018-03-30] MEDS: CIPROFLOXACIN 0.3% (CILOXAN) 2.5 ML BTL OP SCH ×4 (08:33→22:42)
[2018-03-30] MEDS: FLUTICASONE NASAL SPRAY (FLONASE) 16 GM BTL NS SCH (08:33)
--- NOTE | 2018-03-30 09:52 | Occupational Ther Daily Note ---
OT Current Status-Daily Note Subjective Pt was groggy, but was easily awaken. Pt c/o no pain. Agreed to wanting to shower after mentioned having some spilled breakfast on chest. Mental Status/Objective Patient Orientation: Person, Place, Time, Situation Functional [place] Measure 0=Not Assessed/NA 4=Minimal Assistance 1=Total Assistance 5=Supervision or Setup 2=Maximal Assistance 6=Modified [place] 3=Moderate Assistance 7=Complete [place] ADL-Treatment Min A with verbal cues for supine to EOB. Demonstrates increase AROM with L UE/ LE. Mod A for SPT from EOB to w/c. Pt agrees to shower. Pt stood with grabbar and assist for balance and L LE stabilization to exchange w/c and shower chair. Max A to hike pants over hips. Pt able to doff socks and pants over feet with min A. Using long handle sponge, shower chair with cutout, hand held shower and grabbars pt able to complete bathing with close SBA. Assist to dry feet and buttocks. Pt able to don lower body clothing by crossing LE over knee with min A. Pulled pants up legs then max A to hike over hips. Pt then maneuvered w/c to own bathroom and completed by self, cues for one handed strategies. Functional [place] Measure 0=Not Assessed/NA 4=Minimal Assistance 1=Total Assistance 5=Supervision or Setup 2=Maximal Assistance 6=Modified [place] 3=Moderate Assistance 7=Complete IndependenceIRFPAI Quality Coding Scale 6 Independent with activity with or without an assistive device 5 Patient requires set up or clean up by helper. Patient completes activity by themselves 4 Supervision or touching assist (CGA). Knott provide cues , steadying assist 3 The helper provides less than half the effort to complete the activity 2 The helper provides more than half the effort to complete the activity 1 Dependent. The helper does all the effort to complete an activity 7 Patient refused to complete or attempt activity 9 The patient did not perform the activity before the current illness or injury 88 Not attempted due to Medical conditions or safety concerns Grooming (FIM): 5 Oral Hygiene (QC): 5 Bathing (FIM): 2 (Max A to stand and dry buttocks.) Bathing Location: L Arm, R Arm, L Upper Leg, R Upper Leg, L Lower Leg ( including foot), R Lower Leg (including foot), Chest, Abdomen, Buttocks, Perineal Area Shower/Bathe Self (QC): 2 Upper Body (FIM): 3 Upper Body Dressing (QC): 3 Lower Body Dressing (FIM): 2 Lower Body Dressing (QC): 2 On/Off Footwear (QC): 3 Shower Transfer(FIM): 2 Other Treatment Pt transferred from w/c to therapy mat mod A. UE strengthening exercises benefit functional activity, strengthening the L UE. Lying supine, AAROM UE dowel jesica 2 exercises, 2 sets/10 reps. Pt required verbal cues to slow movements of UE's during exercises. Mod A supine to sitting edge of mat, able to focus on L UE to keep on mat. Leaning side to side to work on balance and core strengthening with CGA. Pt maneuvered w/c back to room by self. Call light/phone in reach. All needs met in room. Education OT Patient Education: Correct positioning, Modified ADL techniques, Transfer techniques Teaching Recipient: Patient Teaching Methods: Demonstration, Discussion Response to Teaching: Return Demonstration, Reinforcement Needed OT Short Term Goals Short Term Goals Time Frame: Apr 09, 2018 Eating(FIM): 6 Grooming(FIM): 5 Bathing(FIM): 4 Upper Body Dressing(FIM): 4 Lower Body Dressing(FIM): 3 Toileting(FIM): 4 Transfers (B,C,W/C) (FIM): 3 Toilet/Commode Transfer(FIM): 4 Shower Transfer(FIM): 4 Additional Short Term Goals: 1-Demonstrate ADL Tasks, 2-Verbalize Understanding , 3-ImproveStrength/Sukhdeep 1=Demonstrate adherence to instructed precautions during ADL tasks. 2=Patient will verbalize/demonstrate understanding of assistive devices/ modifications for ADL. 3=Patient will improve strength/tolerance for activity to enable patient to perform ADL's. OT Chcf Goals Room Designer Goals Time Frame: Apr 23, 2018 Eating (FIM): 6 Eating (QC): 6 Groomin Oral Hygiene (QC): 6 Bathing(FIM): 5 Shower/Bathe Self (QC): 5 Upper Body Dressing(FIM): 5 Upper Body Dressing (QC): 5 Lower Body Dressing(FIM): 5 Lower Body Dressing (QC): 5 On/Off Footwear (QC): 5 Toileting(FIM): 6 Toileting Hygiene (QC): 6 Transfers (B,C,W/C) (FIM): 6 Toilet/Commode Transfer(FIM): 6 Toilet/Commode Transfer (QC): 6 Shower Transfer(FIM): 5 Additional Goals: 1-Demonstrate ADL Tasks, 2-Verbalize Understanding, 3- ImproveStrength/Sukhdeep 1=Demonstrate adherence to instructed precautions during ADL tasks. 2=Patient will verbalize/demonstrate understanding of assistive devices/ modifications for ADL. 3=Patient will improve strength/tolerance for activity to enable patient to perform ADL's. OT Education/Plan Discharge Recommendations Plan/Recommendations: Continue POC Treatment Plan/Plan of Care Patient would benefit from OT for education, treatment and training to promote independence in ADL's, mobility, safety and/or upper extremity function for ADL' s. Plan of Care: ADL Retraining, Functional Mobility, Group Exercise/Act as Ind, UE Funct Exercise/Act Treatment Duration: Apr 23, 2018 Frequency: At least 5 of 7 days/Wk (IRF) Estimated Hrs Per Day: 1.5 hours per day Agreement: Yes Rehab Potential: Good Time/GCodes Start Time: 08:30 Stop Time: 09:45 Total Time Billed (hr/min): 75 Billed Treatment Time 1 visit-ADL 3 (45 min) NM 2 (30 min) JIMMY DHILLON Mar 30, 2018 09:52
--- NOTE | 2018-03-30 10:04 | Cardiology Progress Note ---
Subjective Date Seen by Provider: Mar 30, 2018 Time Seen by Provider: 10:00 Subjective/Events-last exam Patient is sitting up in wheelchair, no new complaints. Denies any further episodes of chest pain. Objective-Cardiology Exam Last Set of Vital Signs Vital Signs 03/30/18 03/30/18 06:30 09:26 Temp 99.0 Pulse 70 Resp 18 B/P (MAP) 130/56 (80) Pulse Ox 96 O2 Delivery Room Air Capillary Refill : I&O Intake and Output 03/30/18 00:00 Intake Total 1050 ml Output Total 425 ml Balance 625 ml Intake Oral 1050 ml Output Urine Total 425 ml # Voids 2 General: Alert, Cooperative, No Acute Distress HEENT: Atraumatic, PERRLA, EOMI, Mucous Memb Moist/[place], Other (Dysphagia dysarthria ) Neck: Supple, No JVD Lungs: Clear to Auscultation Heart: Other (Irregular) Abdomen: Normal Bowel Sounds, Soft, No Tenderness Extremities: No Edema Neuro: Other (Left HP Upper more then lower ) Psych/Mental Status: Mental Status NL, Mood NL A/P-Cardiology Admission Diagnosis Chest pain CAD CVA Persistent atrial fibrillation Assessment/Plan Chest pain, nonspecific etiology. Resolved. Responded to PPI. Acute coronary syndrome ruled out with serial negative troponin and negative EKG. ASA was discontinued and started on Plavix. Continue telemetry for the next 24 hours and then discontinue if no events. CAD with history of CABG: Recent coronary angiography at [facility] showed patent grafts with distal disease not amendable to PCI. Medical therapy was recommended. Recurrent CVA/thromboembolic events, continue on Eliquis. Persistent atrial fibrillation on amiodarone and Eliquis. Also on diltiazem and beta sammie. Ischemic cardiomyopathy: On metoprolol. Clinical Quality Measures DVT/VTE Risk/Contraindication: Risk Factor Score Per Nursin RFS Level Per Nursing on Admit: 4+=Very High LB MARTÍNEZ Mar 30, 2018 10:04
--- NOTE | 2018-03-30 10:35 | Cardiology Progress Note ---
Subjective Date Seen by Provider: Mar 30, 2018 Time Seen by Provider: 10:33 Subjective/Events-last exam Patient was seen and evaluated during physical therapy. Denied any chest pain or shortness of breath. Denied any palpitation Review of Systems General: No Chills, No Night Sweats, No Fatigue, No Malaise, No Appetite, No Other HEENT: No Head Aches, No Visual Changes, No Eye Pain, No Ear Pain, No Dysphasia , No Sinus Congestion, No Post Nasal Drip, No Sore Throat, No Other Pulmonary: No Dyspnea, No Cough, No Pleuritic Chest Pain, No Other Cardiovascular: No: Chest Pain, Palpitations, Orthopnea, Paroxysmal Noc. Dyspnea, Edema, Lt Headedness, Other Objective-Cardiology Exam Last Set of Vital Signs Vital Signs 03/30/18 03/30/18 06:30 09:26 Temp 99.0 Pulse 70 Resp 18 B/P (MAP) 130/56 (80) Pulse Ox 96 O2 Delivery Room Air Capillary Refill : I&O Intake and Output 03/30/18 00:00 Intake Total 1050 ml Output Total 425 ml Balance 625 ml Intake Oral 1050 ml Output Urine Total 425 ml # Voids 2 General: Alert, Cooperative, No Acute Distress HEENT: Atraumatic, PERRLA, EOMI, Mucous Memb Moist/[place], Other (Dysphagia dysarthria ) Neck: Supple, No JVD Lungs: Clear to Auscultation Heart: Normal S1, Normal S2, Other (Atrial fibrillation) Abdomen: Normal Bowel Sounds, Soft, No Tenderness Extremities: No Clubbing, No Cyanosis, No Edema Skin: No Rashes, No Breakdown Neuro: Other (Left HP Upper more then lower ) Psych/Mental Status: Mental Status NL, Mood NL A/P-Cardiology Admission Diagnosis Chest pain CAD CVA Persistent atrial fibrillation Assessment/Plan Chest pain, nonspecific etiology. Resolved. Responded to PPI. Acute coronary syndrome ruled out with serial negative troponin and negative EKG. ASA was discontinued and started on Plavix. Continue telemetry for the next 24 hours and then discontinue if no events. CAD with history of CABG: Recent coronary angiography at [facility] showed patent grafts with distal disease not amendable to PCI. Medical therapy was recommended. Recurrent CVA/thromboembolic events, continue on Eliquis. Persistent atrial fibrillation on amiodarone and Eliquis. Also on diltiazem and beta sammie. Continue to monitor, at this time it appear that he started on Eliquis after his last stroke about a week ago. Continue to monitor, managed by Dr. House Ischemic cardiomyopathy: On metoprolol. Clinical Quality Measures DVT/VTE Risk/Contraindication: Risk Factor Score Per Nursin RFS Level Per Nursing on Admit: 4+=Very High TYRESE HENRIQUEZ MD Mar 30, 2018 10:34
--- NOTE | 2018-03-30 10:59 | Physical Therapy Daily Note ---
PT Daily Note-Current Subjective Patient in wheelchair pre tx, agrees to PT, no complaints of pain. Appearance Patient in bed post tx with nurse call, phone, tray, in room, all needs met. Mental Status Patient Orientation: Person, Place, Situation Transfers Functional [place] Measure 0=Not Assessed/NA 4=Minimal Assistance 1=Total Assistance 5=Supervision or Setup 2=Maximal Assistance 6=Modified [place] 3=Moderate Assistance 7=Complete IndependenceIRFPAI Quality Coding Scale 6 Independent with activity with or without an assistive device 5 Patient requires set up or clean up by helper. Patient completes activity by themselves 4 Supervision or touching assist (CGA). [place] provide cues , steadying assist 3 The helper provides less than half the effort to complete the activity 2 The helper provides more than half the effort to complete the activity 1 Dependent. The helper does all the effort to complete an activity 7 Patient refused to complete or attempt activity 9 The patient did not perform the activity before the current illness or injury 88 Not attempted due to Medical conditions or safety concerns Transfers (B, C, W/C) (FIM): 2 Scootin Rollin Supine to/from Sit: 3 Sit to/from Stand: 2 Bed to/from Chair: 2 Gait Training Gait (FIM): 1 Distance: 20'x3 Gait Level of Assist: 2 Gait Persons Needed: 1 Gait Assistive Device: Walker Rodolfo assist with balance, weight shifting, tends to lean backward, does not scissor as bad, able to advance his left leg on his own, needs cues for shorter steps on the left side Wheelchair Training Does the Pt Use a Wheelchair?: Yes Wheelchair (FIM): 5 Distance: 150' Wheelchair Level of Assist: 5 Type of Wheelchair: Manual cues for obstacles and turning due to left neglect Exercises Seated Therapy Exercises: Long arc quads Seated Reps: 20 Standing: Step-ups Standing Reps: 10 Treatments sit to metal fabricating inspector parallel bars x5 Assessment Current Status: Fair Progress improving ambulation and balance, has poor coordination in left leg PT Short Term Goals Short Term Goals Time Frame: Apr 02, 2018 Transfers (B,C,W/C) (FIM): 3 Gait (FIM): 1 Gait Distance Comment: 20' Gait Level of Assist: 2 Gait Assistive Device: Cane Large Base Quad Wheelchair Distance: 150' PT Retirement Goals Professional Organizer Goals PT Retirement Goals Time Frame: Apr 16, 2018 Transfers (B,C,W/C) (FIM): 4 Sit to Lying (QC): 3 Lying-Sitting on Side/Bed(QC): 3 Sit to Stand (QC): 3 Rollin Roll Left to Right (QC): 3 Chair/Mnb-hc-Qkpdb Xfer(QC): 3 Car Transfer (QC): 3 Gait (FIM): 2 Distance: 50' Walk 10 feet (QC): 3 Walk 10ft-Uneven Surface(QC): 3 Walk 50ft with 2 Turns (QC): 3 Gait Level of Assist: 4 Gait Assistive Device: Cane Large Base Quad Wheelchair (FIM): 6 Distance: 200' Wheel 50 feet with 2 turns (QC: 6 PT Plan Problem List Problem List: Activity Tolerance, Functional Strength, Safety, Balance, Gait, Transfer, Bed Mobility Treatment/Plan Treatment Plan: Continue Plan of Care Treatment Plan: Bed Mobility, Concurrent Therapy, Education, Functional Activity Sukhdeep, Functional Strength, Group Therapy, Gait, Safety, Therapeutic Exercise, Transfers Treatment Duration: Apr 16, 2018 Frequency: At least 5 of 7 days/Wk (IRF) Estimated Hrs Per Day: 1.5 hours per day Patient and/or Family Agrees t: Yes Safety Risks/Education Patient Education: Gait Training, Transfer Techniques, Correct Positioning, Safety Issues Teaching Recipient: Patient Teaching Methods: Demonstration, Discussion Response to Teaching: Reinforcement Needed Time/GCodes Time In: 1000 Time Out: 1100 Total Billed Treatment Time: 60 Total Billed Treatment 1 visit GT 30' EX 30' CAMMY BLACK PT Mar 30, 2018 10:59
--- NOTE | 2018-03-30 15:17 | Physical Therapy Daily Note ---
PT Daily Note-Current Subjective Agreeable to PT. Reports he is fatigued from this morning. Transfers Functional [place] Measure 0=Not Assessed/NA 4=Minimal Assistance 1=Total Assistance 5=Supervision or Setup 2=Maximal Assistance 6=Modified [place] 3=Moderate Assistance 7=Complete IndependenceIRFPAI Quality Coding Scale 6 Independent with activity with or without an assistive device 5 Patient requires set up or clean up by helper. Patient completes activity by themselves 4 Supervision or touching assist (CGA). [place] provide cues , steadying assist 3 The helper provides less than half the effort to complete the activity 2 The helper provides more than half the effort to complete the activity 1 Dependent. The helper does all the effort to complete an activity 7 Patient refused to complete or attempt activity 9 The patient did not perform the activity before the current illness or injury 88 Not attempted due to Medical conditions or safety concerns Treatments Treatment consisted of bed mobility activities to include sit to / from supine x 3 reps , bed flat, use of bedrail right and pt able to transiition with SBA each time with cues 50% of the time to sequence. Sit to stand x 10 reps total with victoriano walker with max assist to stand and mod assist to maintain standing with support on his left and skilled cues 75% of the time for hip and knee extension as well and shoulders upright. Pt able to activate extensor musculature to attain upright stance. With repetition, he was able to extend without cuing. Pt then performed SPT bed to commode with max assist and max assist to lower his clothing. Pt on commode with present post treatment. Assessment Current Status: Good Progress Bed mobility is improving. Sit to stand improved and with repetition, he required fewer cues for postural alignment. PT Short Term Goals Short Term Goals Time Frame: Apr 02, 2018 Transfers (B,C,W/C) (FIM): 3 Gait (FIM): 1 Gait Distance Comment: 20' Gait Level of Assist: 2 Gait Assistive Device: Cane Large Base Quad Wheelchair Distance: 150' PT Nursing Home Goals Nursing Home Goals PT Nursing Home Goals Time Frame: Apr 16, 2018 Transfers (B,C,W/C) (FIM): 4 Sit to Lying (QC): 3 Lying-Sitting on Side/Bed(QC): 3 Sit to Stand (QC): 3 Rollin Roll Left to Right (QC): 3 Chair/Jve-jc-Dogbf Xfer(QC): 3 Car Transfer (QC): 3 Gait (FIM): 2 Distance: 50' Walk 10 feet (QC): 3 Walk 10ft-Uneven Surface(QC): 3 Walk 50ft with 2 Turns (QC): 3 Gait Level of Assist: 4 Gait Assistive Device: Cane Large Base Quad Wheelchair (FIM): 6 Distance: 200' Wheel 50 feet with 2 turns (QC: 6 PT Plan Problem List Problem List: Activity Tolerance, Functional Strength, Safety, Balance, Gait, Transfer, Bed Mobility Treatment/Plan Treatment Plan: Continue Plan of Care Treatment Plan: Bed Mobility, Concurrent Therapy, Education, Functional Activity Sukhdeep, Functional Strength, Group Therapy, Gait, Safety, Therapeutic Exercise, Transfers Treatment Duration: Apr 16, 2018 Frequency: At least 5 of 7 days/Wk (IRF) Estimated Hrs Per Day: 1.5 hours per day Patient and/or Family Agrees t: Yes Safety Risks/Education Patient Education: Transfer Techniques, Safety Issues Teaching Recipient: Patient Teaching Methods: Discussion Response to Teaching: Return Demonstration, Reinforcement Needed Time/GCodes Time In: 1420 Time Out: 1450 Total Billed Treatment Time: 30 Total Billed Treatment visit FA 30 JIMMY MOURA PT Mar 30, 2018 15:17
--- NOTE | 2018-03-30 15:31 | Speech Therapy Daily Note ---
Speech Daily Progress Note Subjective Date Seen by Provider: Mar 30, 2018 Time Seen by Provider: 11:00 pt in bed. Cooperative. Pain Numeric Pain Scale: 1 Objective Pt complete dysphagia exercises.with mod assist. Assessment Assessment Current Status: Fair Progress Treatment Plan Continue Plan of Care Communication Comprehension: 6 Expression: 7 Social Cognition Social Interaction: 7 Problem Solvin Memory: 7 Speech Short Term Goals Short Term Goals Short Term Goals No STGs established at this time due to skilled ST was not indicated. Speech Senior Cobol Developer Goals Senior Cobol Developer Goals No LTGs were established as no skilled ST indicated at this time. Speech-Plan Patient/Family Goals Patient/Family Goals: to return home. Treatment Plan Speech Therapy Treatment Plan: Continue Plan of Care pt making slow progress. Treatment Duration: Mar 26, 2018 Frequency: 5 times per week Estimated Hrs Per Day: .5 hour per day Rehab Potential: Good Pt/Family Agrees to Plan: Yes Safety Risks/Education Teaching Recipient: Patient Teaching Methods: Discussion Response to Teaching: Verbalize Understanding Time Speech Therapy Time In: 11:00 Speech Therapy Time Out: 11:30 Total Billed Time: 30 Billed Treatment Time 1, MAGALY Garsia Mar 30, 2018 15:31
[2018-03-30 15:51] VITALS: BP 113/72
--- NOTE | 2018-03-30 21:34 | PM & R (SOAP) Progress Note ---
Subjective This was a face to face visit with the patient. Date Seen by Provider: Mar 30, 2018 Time Seen by Provider: 21:25 Subjective/Events-last exam Patient was seen in his rrom this evening Discussed case with RN Patient constipated Meds adjusted Patient had CP over weekend felt to be due to Reflux EKG and Troponin negative Appreciate DR Nicholas and Deuce note and orders Patient Mod to max assist for transfers.Patient c/o insomnia meds reviewed Melatonin ordered see orders Review of Systems General: Other (insomnia) Objective Physician Exam Last Set of Vital Signs Vital Signs Date Time Temp Pulse Resp B/P (MAP) Pulse Ox O2 Delivery O2 Flow Rate FiO2 03/30/18 15:51 97.7 76 14 113/72 (86) 99 Room Air Capillary Refill : I&O Intake and Output 03/30/18 00:00 Intake Total 1050 ml Output Total 425 ml Balance 625 ml Intake Oral 1050 ml Output Urine Total 425 ml # Voids 2 General: Alert, Cooperative, No Acute Distress HEENT: Atraumatic, PERRLA, EOMI, Mucous Memb Moist/[place], Other (Dysphagia dysarthria ) Neck: Supple, No JVD Lungs: Clear to Auscultation Heart: Normal S1, Normal S2, Other Abdomen: Normal Bowel Sounds, Soft, No Tenderness Extremities: No Clubbing, No Cyanosis, No Edema Skin: No Rashes, No Breakdown Neuro: Other (Left HP Upper more then lower ) Psych/Mental Status: Mental Status NL, Mood NL Results Lab Data Laboratory Tests 03/27/18 21:52: Urine Color YELLOW, Urine Clarity CLEAR, Urine pH 5, Urine Specific [place] 1.020, Urine Protein 2+H, Urine Glucose (UA) NEGATIVE, Urine Ketones NEGATIVE, Urine Nitrite NEGATIVE, Urine Bilirubin NEGATIVE, Urine Urobilinogen NORMAL, Urine Leukocyte Esterase 1+H, Urine RBC (Auto) 1+H, Urine RBC 2-5H, Urine WBC RARE, Urine Crystals NONE, Urine Bacteria NEGATIVE, Urine Casts NONE, Urine Mucus NEGATIVE, Urine Culture Indicated NO 03/28/18 05:39: Glucometer 179H 03/28/18 09:10: White Blood Count 12.3H, Red Blood Count 4.55, Hemoglobin 12.4L, Hematocrit 38L , Mean Corpuscular Volume 84, Mean Corpuscular Hemoglobin 27, Mean Corpuscular Hemoglobin Concent 33, Red Cell Distribution Width 16.3H, Platelet Count 352, Mean Platelet Volume 9.4, Neutrophils (%) (Auto) 84H, Lymphocytes (%) (Auto) 8L , Monocytes (%) (Auto) 7, Eosinophils (%) (Auto) 1, Basophils (%) (Auto) 0, Neutrophils # (Auto) 10.3H, Lymphocytes # (Auto) 1.0, Monocytes # (Auto) 0.8, Eosinophils # (Auto) 0.2, Basophils # (Auto) 0.0, Sodium Level 141, Potassium Level 4.0, Chloride Level 105, Carbon Dioxide Level 28, Anion Gap 8, Blood Urea Nitrogen 26H, Creatinine 1.17, Estimat Glomerular Filtration Rate > 60, BUN/ Creatinine Ratio 22, Glucose Level 242H, Calcium Level 8.8, Corrected Calcium 9.1, Total Bilirubin 1.4H, Aspartate Amino Transf (AST/SGOT) 28, Alanine Aminotransferase (ALT/SGPT) 24, Alkaline Phosphatase 42, Troponin I < 0.30, Total Protein 6.6, Albumin 3.6 03/28/18 11:01: Glucometer 260H 03/28/18 14:50: Troponin I < 0.30 03/28/18 16:14: Glucometer 329H 03/28/18 20:49: Glucometer 242H 03/29/18 05:25: Glucometer 183H 03/29/18 11:19: Glucometer 220H 03/29/18 15:37: Glucometer 220H 03/29/18 20:36: Glucometer 236H 03/30/18 06:35: Glucometer 214H 03/30/18 10:35: Glucometer 183H 03/30/18 16:18: Glucometer 94 03/30/18 20:21: Glucometer 122H Assessment/Plan Assessment and Plan CVA HP Dysarthria Dysphagia Atypical CP Chronic A FIB CAD Insomnia Constipation Plan Continue PT/OT/ST F/U with Hospitalist and Card prn Adjust meds for constipation Melatonin ordered for Insomnia See orders Team Conference 04-01-18 Co-Morbidities that are continuing to impact the rehab process: (include details ) EMMY JULIEN MD Mar 30, 2018 21:34
[2018-03-30] MEDS ORDERED: MELATONIN 3 MG TABLET ONE (21:59)
[2018-03-30] MEDS: ATORVASTATIN 40 MG (LIPITOR) TABLET PO SCH (22:14)
[2018-03-30] MEDS: SENNA W/DOCUSATE (SENOKOT S) TABLET PO SCH (22:14)
[2018-03-30] MEDS: POLYETHYLENE GLYCOL 17 GM (MIRALAX) PACK PO SCH (22:14)
[2018-03-31] MEDS: NYSTATIN ORAL SUSP 5 ML UDC PO SCH ×5 (01:22→23:44)
[2018-03-31 01:34] VITALS: BP 124/76
[2018-03-31] MEDS: inSUlin ASPART (NovoLOG) 1 UNIT/0.01 ML (CHARGE PER UNIT) SC SCH ×4 (06:10→21:59)
--- NOTE | 2018-03-31 08:02 | Cardiology Progress Note ---
Subjective Date Seen by Provider: Mar 31, 2018 Time Seen by Provider: 07:57 Subjective/Events-last exam Patient is laying down in bed. No new complaint. Denied any chest pain. Review of Systems General: No Chills, No Night Sweats, No Fatigue, No Malaise, No Appetite, No Other HEENT: No Head Aches, No Visual Changes, No Eye Pain, No Ear Pain, No Dysphasia , No Sinus Congestion, No Post Nasal Drip, No Sore Throat, No Other Pulmonary: No Dyspnea, No Cough, No Pleuritic Chest Pain, No Other Cardiovascular: No: Chest Pain, Palpitations, Orthopnea, Paroxysmal Noc. Dyspnea, Edema, Lt Headedness, Other Objective-Cardiology Exam Last Set of Vital Signs Vital Signs 03/31/18 01:34 Temp 98.4 Pulse 73 Resp 16 B/P (MAP) 124/76 (92) Pulse Ox 92 O2 Delivery Room Air Capillary Refill : I&O Intake and Output 03/31/18 00:00 Intake Total 840 ml Balance 840 ml Intake Oral 840 ml # Voids 3 General: Alert, Cooperative, No Acute Distress HEENT: Atraumatic, PERRLA, EOMI, Mucous Memb Moist/[place], Other (Dysphagia dysarthria ) Neck: Supple, No JVD Lungs: Clear to Auscultation Heart: Normal S1, Normal S2, Other (Systolic murmur at the left sternal border) Abdomen: Normal Bowel Sounds, Soft, No Tenderness Extremities: No Clubbing, No Cyanosis, No Edema Skin: No Rashes, No Breakdown Neuro: Other (Left HP Upper more then lower ) Psych/Mental Status: Mental Status NL, Mood NL A/P-Cardiology Admission Diagnosis Chest pain CAD CVA Persistent atrial fibrillation Assessment/Plan Chest pain, nonspecific etiology. Resolved. Responded to PPI. Acute coronary syndrome ruled out with serial negative troponin and negative EKG. ASA was discontinued and started on Plavix. Continue to monitor CAD with history of CABG: Recent coronary angiography at [facility] showed patent grafts with distal disease not amendable to PCI. Medical therapy was recommended. Recurrent CVA/thromboembolic events, continue on Eliquis. Persistent atrial fibrillation on amiodarone and Eliquis. Also on diltiazem and beta sammie. Continue to monitor, at this time it appear that he started on Eliquis after his last stroke about a week ago. Continue to monitor, managed by Dr. House Ischemic cardiomyopathy: On metoprolol. Aortic stenosis murmur, I will evaluate 2-D echocardiogram, last echo was done in 2012 Clinical Quality Measures DVT/VTE Risk/Contraindication: Risk Factor Score Per Nursin RFS Level Per Nursing on Admit: 4+=Very High TYRESE HENRIQUEZ MD Mar 31, 2018 08:02
[2018-03-31] MEDS: AMIODARONE 200 MG (CORDARONE) TAB PO SCH ×2 (09:47→20:19)
[2018-03-31] MEDS: inSUlin DETERMIR 1 UNIT/0.01 ML (LEVEMIR) CHARGE PER UNIT SQ SCH ×2 (09:47→21:58)
[2018-03-31] MEDS: CLOPIDOGREL 75 MG (PLAVIX) TABLET PO SCH (09:48)
[2018-03-31] MEDS: FAMOTIDINE 20 MG (PEPCID) TABLET PO SCH ×2 (09:48→20:19)
[2018-03-31] MEDS: LORATADINE (CLARITIN) 10 MG TAB PO SCH (09:48)
[2018-03-31] MEDS: APIXABAN 5 MG (ELIQUIS) TABLET PO SCH ×2 (09:48→20:19)
[2018-03-31] MEDS: SENNA W/DOCUSATE (SENOKOT S) TABLET PO SCH ×2 (09:48→20:19)
--- NOTE | 2018-03-31 09:57 | PM & R (SOAP) Progress Note ---
Subjective This was a face to face visit with the patient. Date Seen by Provider: Mar 31, 2018 Time Seen by Provider: 07:50 Subjective/Events-last exam Patient was seen in his room this AM Slept better with melatonin. Patient Mod to max assist for transfers Review of Systems Neurological: Weakness Objective Physician Exam Last Set of Vital Signs Vital Signs Date Time Temp Pulse Resp B/P (MAP) Pulse Ox O2 Delivery O2 Flow Rate FiO2 03/31/18 09:47 98.4 03/31/18 01:34 73 16 124/76 (92) 92 Room Air Capillary Refill : I&O Intake and Output 03/31/18 00:00 Intake Total 840 ml Balance 840 ml Intake Oral 840 ml # Voids 3 General: Alert, Cooperative, No Acute Distress HEENT: Atraumatic, PERRLA, EOMI, Mucous Memb Moist/[place], Other (Dysphagia dysarthria ) Neck: Supple, No JVD Lungs: Clear to Auscultation Heart: Normal S1, Normal S2, Other (Systolic murmur at the left sternal border) Abdomen: Normal Bowel Sounds, Soft, No Tenderness Extremities: No Clubbing, No Cyanosis, No Edema Skin: No Rashes, No Breakdown Neuro: Other (Left HP Upper more then lower ) Psych/Mental Status: Mental Status NL, Mood NL Results Lab Data Laboratory Tests 03/28/18 11:01: Glucometer 260H 03/28/18 14:50: Troponin I < 0.30 03/28/18 16:14: Glucometer 329H 03/28/18 20:49: Glucometer 242H 03/29/18 05:25: Glucometer 183H 03/29/18 11:19: Glucometer 220H 03/29/18 15:37: Glucometer 220H 03/29/18 20:36: Glucometer 236H 03/30/18 06:35: Glucometer 214H 03/30/18 10:35: Glucometer 183H 03/30/18 16:18: Glucometer 94 03/30/18 20:21: Glucometer 122H 03/31/18 07:35: Glucometer 69L 03/31/18 08:41: Glucometer 108 Assessment/Plan Assessment and Plan RT CVA with left HP Dysarthria Dysphagia Atypical CP Chronic A FIB CAD Insomnia improved with med Constipation meds adjusted Plan Continue PT/OT/ST Team Conference tomorrow F/U with DR Burleson and Cardiology Co-Morbidities that are continuing to impact the rehab process: (include details ) EMMY JULIEN MD Mar 31, 2018 09:57
[2018-03-31] MEDS: FLUTICASONE NASAL SPRAY (FLONASE) 16 GM BTL NS SCH (10:02)
[2018-03-31] MEDS: CIPROFLOXACIN 0.3% (CILOXAN) 2.5 ML BTL OP SCH ×4 (10:02→21:00)
--- NOTE | 2018-03-31 10:58 | Physical Therapy Daily Note ---
PT Daily Note-Current Subjective Patient in recliner pre tx, agrees to PT, no complaints of pain. Appearance Patient in bed post tx with nurse call, phone, tray, in room. Mental Status Patient Orientation: Person, Place, Situation Transfers Functional [place] Measure 0=Not Assessed/NA 4=Minimal Assistance 1=Total Assistance 5=Supervision or Setup 2=Maximal Assistance 6=Modified [place] 3=Moderate Assistance 7=Complete IndependenceIRFPAI Quality Coding Scale 6 Independent with activity with or without an assistive device 5 Patient requires set up or clean up by helper. Patient completes activity by themselves 4 Supervision or touching assist (CGA). [place] provide cues , steadying assist 3 The helper provides less than half the effort to complete the activity 2 The helper provides more than half the effort to complete the activity 1 Dependent. The helper does all the effort to complete an activity 7 Patient refused to complete or attempt activity 9 The patient did not perform the activity before the current illness or injury 88 Not attempted due to Medical conditions or safety concerns Transfers (B, C, W/C) (FIM): 3 Scootin Rollin Supine to/from Sit: 4 Sit to/from Stand: 3 Bed to/from Chair: 3 cues for safety and hand placement Gait Training Gait (FIM): 1 Distance: 20'x4 Gait Level of Assist: 2 Gait Persons Needed: 1 Gait Assistive Device: Walker Rodolfo Patient needs assist with balance and weight shifting. Uncoordinated stepping with left leg. Wheelchair Training Does the Pt Use a Wheelchair?: Yes Wheelchair (FIM): 5 Distance: 150'x2 Wheelchair Level of Assist: 5 Type of Wheelchair: Manual Exercises NuStep Minutes: 15 NuStep Workload: 3 Treatments wheelchair mobility, bed mobility and transfers, ambulation, functional strengthening Assessment Current Status: Fair Progress improving transfers and ambulation PT Short Term Goals Short Term Goals Time Frame: Apr 02, 2018 Transfers (B,C,W/C) (FIM): 3 Gait (FIM): 1 Gait Distance Comment: 20' Gait Level of Assist: 2 Gait Assistive Device: Cane Large Base Quad Wheelchair Distance: 150' PT Shelter Goals Director Of Emergency Nursing Goals PT Shelter Goals Time Frame: Apr 16, 2018 Transfers (B,C,W/C) (FIM): 4 Sit to Lying (QC): 3 Lying-Sitting on Side/Bed(QC): 3 Sit to Stand (QC): 3 Rollin Roll Left to Right (QC): 3 Chair/Wzm-xe-Qejqg Xfer(QC): 3 Car Transfer (QC): 3 Gait (FIM): 2 Distance: 50' Walk 10 feet (QC): 3 Walk 10ft-Uneven Surface(QC): 3 Walk 50ft with 2 Turns (QC): 3 Gait Level of Assist: 4 Gait Assistive Device: Cane Large Base Quad Wheelchair (FIM): 6 Distance: 200' Wheel 50 feet with 2 turns (QC: 6 PT Plan Problem List Problem List: Activity Tolerance, Functional Strength, Safety, Balance, Gait, Transfer, Bed Mobility Treatment/Plan Treatment Plan: Continue Plan of Care Treatment Plan: Bed Mobility, Concurrent Therapy, Education, Functional Activity Sukhdeep, Functional Strength, Group Therapy, Gait, Safety, Therapeutic Exercise, Transfers Treatment Duration: Apr 16, 2018 Frequency: At least 5 of 7 days/Wk (IRF) Estimated Hrs Per Day: 1.5 hours per day Patient and/or Family Agrees t: Yes Safety Risks/Education Patient Education: Gait Training, Transfer Techniques, Correct Positioning, Safety Issues Teaching Recipient: Patient Teaching Methods: Demonstration, Discussion Response to Teaching: Reinforcement Needed Time/GCodes Time In: 1000 Time Out: 1100 Total Billed Treatment Time: 60 Total Billed Treatment 1 visit GT 30' EX 15' FA 15' CAMMY BLACK PT Mar 31, 2018 10:58
--- NOTE | 2018-03-31 10:59 | Progress Note-Hospitalist ---
Subjective HPI/CC On Admission Date Seen by Provider: Mar 31, 2018 Time Seen by Provider: 10:00 Mr. Guerin is a frail 73-year-old white male who developed abrupt onset of left upper quadrant pain on 18 March. 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 He was discharged with pain medication. On [address] scanning of the chest with contrast for evaluation of subcarinal fullness. It was felt to represent adenopathy a little more prominent than a previous CT scan of the chest in 2012 per radiologist report. No pulmonary abnormalities were reported. He also had significant cholelithiasis without symptoms to suggest cholecystitis. Sometime shortly thereafter he developed left-sided weakness and was transferred to [place] where he was noted to have a right sided CVA without evidence for significant extracranial vascular disease. He ultimately underwent cardiac catheterization as well which reportedly revealed mild hypokinesis with estimated ejection fraction of 40 percent he did have 3 patent grafts he had some disease in the PDA distal to his RCA graft and also had some disease in the obtuse marginal system that was not bypassed. Medical management was opted for however and the patient did not undergo any endovascular-based therapy. He is transferred back to our rehabilitation unit to continue redilatation for deficits that include left-sided hemiparesis as well as dysarthria and mild dysphasia. He reports that he has been swallowing without coughing on thickened liquids and solids. He denies abdominal pain but does note some sores in his mouth. He states that while he still has significant weakness he has had improvement in movement of the left upper extremity and left lower extremity. The left lower extremity is been affected to a lesser degree than left upper extremity. Past medical history seen for long-standing poorly controlled insulin requiring type II diabetes due to poor compliance with bolus therapy for many years. 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 For this reason he had not been on anticoagulant therapy for known underlying persistent atrial fibrillation. He had no previous known history of thromboembolic disease. He has been placed on eliquis and reports no change in vision and also denies ocular pain. He also was diagnosed with urinary tract infection and discharged on Levaquin to our facility. He also has known significant peripheral neuropathy and pressure ulceration with past osteomyelitis of the great toe requiring partial amputation on the left. In the past she's had multiple foot ulcers but is been some time since he last required treatment for diabetic-related foot ulceration. Subjective/Events-last exam Upon my arrival at 10 o'clock a.m. the patient was sleeping. He was easily arousable but had an obvious depressed affect. He admitted to feelings of depression over his recent stroke and fear of permanent disability. Per physical therapy he is making progress although understandably it has been slow. He was quite weak with some generalized deconditioning prior but was fully functional and performing all of his ADLs. He reports no physical pain chest or otherwise. He had had some constipation issues but after initiation of MiraLAX at a bowel movement yesterday but was not reportedly hard. Objective Exam Vital Signs Vital Signs Date Time Temp Pulse Resp B/P (MAP) Pulse Ox O2 Delivery O2 Flow Rate FiO2 03/31/18 09:47 98.4 03/31/18 01:34 73 16 124/76 (92) 92 Room Air Capillary Refill : General Appearance: No Apparent Distress, Chronically ill, Thin Respiratory: Chest Non Tender, Lungs Clear, Normal Breath Sounds, No Accessory Muscle Use, No Respiratory Distress Cardiovascular: No Edema, No Gallop, No JVD, Systolic Murmur (2 to 3/6 systolic ejection murmur heard best over the aortic outflow tract unchanged.), Irregularly Irregular Gastrointestinal: Normal Bowel Sounds, No Organomegaly, No Pulsatile Mass, Non Tender, Soft Neurologic/Psychiatric: Depressed Affect, Other (Mild improvement while the patient still has significant weakness and it is a challenge he can touch his left finger to his nose he still is unable to straighten the fingers of his left hand with stable left lower extremity weakness less so than left upper extremity) Results/Procedures Lab Patient resulted labs reviewed. Assessment/Plan Assessment and Plan Assess & Plan/Chief Complaint 1. 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 Considering splenic infarct likely embolic as well we did discuss the risk of anticoagulant therapy and recurrent hemorrhage versus benefits. In my estimation benefits significantly outweigh risk as she would be highly likely to continue to have embolic symptoms. The downside would be retinal hemorrhages would likely lead to blindness in the affected eye. Patient agrees with continuing anticoagulant therapy. 2. Known significant coronary artery disease with mild LV systolic dysfunction continue baby aspirin daily. 3. Type II diabetes mellitus insulin requiring blood sugars under very good control he had one level of 63 this morning and his Levemir was held we will decrease to 10 units twice a day. 4. Thrush nystatin has been initiated with significant less whitish plaques and less tenderness per patient report today.. 5. Chronic atrial fibrillation currently rate controlled. 6. Reported urinary tract infection we'll repeat a UA and if unremarkable can discontinue antibiotic therapy. 7. Carinal fullness possible adenopathy considering the patient's frailty and multiple medical symptoms we will see about obtaining PET scan as an outpatient. 8. Depression we discussed the currently there is a reactive component but I'm also concerned about a direct endogenous component secondary to his stroke. After discussion of antidepressant therapy the patient is willing to initiate a trial of Lexapro 10 mg daily. Wrist to benefit ratio discussed including side effects will proceed and monitor. Patient encouraged pointing out the progress was occurring and expected to continue. Clinical Quality Measures DVT/VTE Risk/Contraindication: Risk Factor Score Per Nursin RFS Level Per Nursing on Admit: 4+=Very High BEVERLY FERNANDES MD Mar 31, 2018 10:59
--- NOTE | 2018-03-31 11:30 | Occupational Ther Daily Note ---
OT Current Status-Daily Note Subjective Pt sleeping in bed, woke to name. Nrsg reported that pt's blood sugar is low and needed to eat breakfast before he got out of bed. came into room at this time. Nrsg and ROMERO positioned pt in bed for breakfast. Pt agrees to therapy. During breakfast pt received phone call about his work and was able to manage the logistics of calling appropriate people to get issues resolved. Mental Status/Objective Patient Orientation: Person, Place, Time, Situation Functional [place] Measure 0=Not Assessed/NA 4=Minimal Assistance 1=Total Assistance 5=Supervision or Setup 2=Maximal Assistance 6=Modified [place] 3=Moderate Assistance 7=Complete [place] ADL-Treatment Pt declined shower at this time. Functional [place] Measure 0=Not Assessed/NA 4=Minimal Assistance 1=Total Assistance 5=Supervision or Setup 2=Maximal Assistance 6=Modified [place] 3=Moderate Assistance 7=Complete IndependenceIRFPAI Quality Coding Scale 6 Independent with activity with or without an assistive device 5 Patient requires set up or clean up by helper. Patient completes activity by themselves 4 Supervision or touching assist (CGA). [place] provide cues , steadying assist 3 The helper provides less than half the effort to complete the activity 2 The helper provides more than half the effort to complete the activity 1 Dependent. The helper does all the effort to complete an activity 7 Patient refused to complete or attempt activity 9 The patient did not perform the activity before the current illness or injury 88 Not attempted due to Medical conditions or safety concerns Eating (FIM): 5 (After set up, pt able to use R UE to feed self.) Eating (QC): 5 Upper Body (FIM): 3 (Mod A when completing one handed strategies for dressing. Requires assist to thread arm through and manipulate clothing. Doffs by self. ) Upper Body Dressing (QC): 3 Lower Body Dressing (FIM): 2 (Assist to doff/don over feet then assist to stand while pt hiked pants over hips.) Lower Body Dressing (QC): 2 Other Treatment Mod A to transfer from one surface to another. Pt sat on EOB with SBA due to leaning toward L side, needing verbal and physical cues to come back to midline. Pt able to hold L UE on mat with assist with non-skid material. Pt able to straighten L elbow by self though unable to hold position when wt bearing. Tapping, muscle facilitation, to activate tricep muscle while wt bearing for L UE. After therapy, pt sitting in recliner with call light/phone in reach. All needs met in room. OT Short Term Goals Short Term Goals Time Frame: Apr 09, 2018 Eating(FIM): 6 Grooming(FIM): 5 Bathing(FIM): 4 Upper Body Dressing(FIM): 4 Lower Body Dressing(FIM): 3 Toileting(FIM): 4 Transfers (B,C,W/C) (FIM): 3 Toilet/Commode Transfer(FIM): 4 Shower Transfer(FIM): 4 Additional Short Term Goals: 1-Demonstrate ADL Tasks, 2-Verbalize Understanding , 3-ImproveStrength/Sukhdeep 1=Demonstrate adherence to instructed precautions during ADL tasks. 2=Patient will verbalize/demonstrate understanding of assistive devices/ modifications for ADL. 3=Patient will improve strength/tolerance for activity to enable patient to perform ADL's. OT Design Printing Machine Set Up Operator Goals Design Printing Machine Set Up Operator Goals Time Frame: Apr 23, 2018 Eating (FIM): 6 Eating (QC): 6 Groomin Oral Hygiene (QC): 6 Bathing(FIM): 5 Shower/Bathe Self (QC): 5 Upper Body Dressing(FIM): 5 Upper Body Dressing (QC): 5 Lower Body Dressing(FIM): 5 Lower Body Dressing (QC): 5 On/Off Footwear (QC): 5 Toileting(FIM): 6 Toileting Hygiene (QC): 6 Transfers (B,C,W/C) (FIM): 6 Toilet/Commode Transfer(FIM): 6 Toilet/Commode Transfer (QC): 6 Shower Transfer(FIM): 5 Additional Goals: 1-Demonstrate ADL Tasks, 2-Verbalize Understanding, 3- ImproveStrength/Sukhdeep 1=Demonstrate adherence to instructed precautions during ADL tasks. 2=Patient will verbalize/demonstrate understanding of assistive devices/ modifications for ADL. 3=Patient will improve strength/tolerance for activity to enable patient to perform ADL's. OT Education/Plan Discharge Recommendations Plan/Recommendations: Continue POC Treatment Plan/Plan of Care Patient would benefit from OT for education, treatment and training to promote independence in ADL's, mobility, safety and/or upper extremity function for ADL' s. Plan of Care: ADL Retraining, Functional Mobility, Group Exercise/Act as Ind, UE Funct Exercise/Act Treatment Duration: Apr 23, 2018 Frequency: At least 5 of 7 days/Wk (IRF) Estimated Hrs Per Day: 1.5 hours per day Agreement: Yes Rehab Potential: Good Time/GCodes Start Time: 08:00 Stop Time: 09:00 Total Time Billed (hr/min): 60 Billed Treatment Time 1 visit-ADL 3 (40 min) NM 1 (20 min) JIMMY DHILLON Mar 31, 2018 11:30
[2018-03-31] MEDS: FLUoxetine HCL 10 MG (PROzac) CAPSULE/TABLET PO SCH (11:31)
--- NOTE | 2018-03-31 15:05 | Therapy Group Daily Note ---
Therapy Daily Group Note Other/Notes Each patient participated in group therapy in the common area of rehab. Each patient ambulated or was transported to the area where group therapy was performed and everyone sat in a kotlik. Each patient had to introduce themselves, state where they were from and answer a question involving critical thinking and memory. Patients were then oriented to the rehab process and were able to ask questions and discuss these the other patients. Patient's were also taken through upper and lower extremity seated exercises by PT and OT. Patients finally participated in a self motivation and confidence building activity. All patient's then ambulated or were transported back to their rooms and placed in bed or recliner with nurse call, phone, and tray available and alarm on if applicable. Start Time: 13:00 Stop Time: 14:00 Total Billed Treatment Time: 60 Total Billed Treatment 1 visit GRP 60' CAMMY BLACK PT Mar 31, 2018 15:05
--- NOTE | 2018-03-31 16:40 | Speech Therapy Daily Note ---
Speech Daily Progress Note Subjective Date Seen by Provider: Mar 31, 2018 Time Seen by Provider: 14:10 Pt cooperative. Pain Numeric Pain Scale: 0-No Pain Objective Pt performed OMEs with min to mod assist. Communication Comprehension: 6 Expression: 7 Social Cognition Social Interaction: 7 Problem Solvin Memory: 7 Speech Short Term Goals Short Term Goals Short Term Goals Pt will complete Oral Motor Exercises with min assist. Time Frame-ST week Speech Shelter Goals Shelter Goals Pt will tolerate regular diet with thin liquids with no s/s of aspiration. Time Frame: 3 weeks Speech-Plan Patient/Family Goals Patient/Family Goals: regular diet with thin liquids. Treatment Plan Speech Therapy Treatment Plan: Continue Plan of Care cont with POC Treatment Duration: Mar 26, 2018 Frequency: 5 times per week Estimated Hrs Per Day: .5 hour per day Rehab Potential: Good Pt/Family Agrees to Plan: Yes Safety Risks/Education Teaching Recipient: Patient ([id number]), Family Response to Teaching: Verbalize Understanding Time Speech Therapy Time In: 14:10 Speech Therapy Time Out: 14:25 Total Billed Time: 15 Billed Treatment Time 1, DYST No MAGALY GARAY Mar 31, 2018 16:40
[2018-03-31 16:57] VITALS: BP 167/74
[2018-03-31] MEDS: ATORVASTATIN 40 MG (LIPITOR) TABLET PO SCH (20:19)
[2018-03-31] MEDS: MELATONIN 3 MG TABLET PO SCH (20:19)
[2018-03-31] MEDS: POLYETHYLENE GLYCOL 17 GM (MIRALAX) PACK PO SCH (20:19)
[2018-04-01 06:00] VITALS: BP 128/68
[2018-04-01] MEDS: NYSTATIN ORAL SUSP 5 ML UDC PO SCH ×3 (06:30→17:03)
[2018-04-01] MEDS: inSUlin ASPART (NovoLOG) 1 UNIT/0.01 ML (CHARGE PER UNIT) SC SCH ×4 (06:32→22:36)
[2018-04-01] MEDS: POLYETHYLENE GLYCOL 17 GM (MIRALAX) PACK PO SCH (07:23)
--- NOTE | 2018-04-01 08:46 | Cardiology Progress Note ---
Subjective Date Seen by Provider: Apr 01, 2018 Time Seen by Provider: 08:43 Subjective/Events-last exam Patient is in bed. No new complaints. Denies any CP or dyspnea. Continues to have left sided HP. Review of Systems General: No Night Sweats, No Fatigue, No Malaise HEENT: No Visual Changes, No Dysphasia, No Sore Throat Pulmonary: No Dyspnea, No Cough Cardiovascular: No: Chest Pain, Palpitations Gastrointestinal: No: Nausea, Vomiting, Abdominal Pain Genitourinary: No Dysuria Musculoskeletal: No: neck pain, back pain Neurological: Weakness (left sided HP); No: Change in speech, Confusion Objective-Cardiology Exam Last Set of Vital Signs Vital Signs 04/01/18 06:00 Temp 98.1 Pulse 68 Resp 16 B/P (MAP) 128/68 (88) Pulse Ox 94 O2 Delivery Room Air Capillary Refill : I&O Intake and Output 03/31/18 23:59 Intake Total 720 ml Balance 720 ml Intake Oral 720 ml # Voids 4 # Bowel Movements 2 General: Alert, Cooperative, No Acute Distress HEENT: Atraumatic, PERRLA, EOMI, Mucous Memb Moist/[place], Other (Dysphagia dysarthria ) Neck: Supple, No JVD Lungs: Clear to Auscultation Heart: Normal S1, Normal S2, Other (Systolic murmur at the left sternal border) Abdomen: Normal Bowel Sounds, Soft, No Tenderness Extremities: No Clubbing, No Cyanosis, No Edema Skin: No Rashes, No Breakdown Neuro: Other (Left HP Upper more then lower ) Psych/Mental Status: Mental Status NL, Mood NL A/P-Cardiology Admission Diagnosis Chest pain CAD CVA Persistent atrial fibrillation Assessment/Plan Chest pain, nonspecific etiology. Resolved. Responded to PPI. Acute coronary syndrome ruled out with serial negative troponin and negative EKG. ASA was discontinued and started on Plavix. Continue to monitor CAD with history of CABG: Recent coronary angiography at [facility] showed patent grafts with distal disease not amendable to PCI. Medical therapy was recommended. Recurrent CVA/thromboembolic events, continue on Eliquis. Persistent atrial fibrillation on amiodarone and Eliquis. Also on diltiazem and beta sammie. Continue to monitor, at this time it appear that he started on Eliquis after his last stroke about a week ago. Continue to monitor, managed by Dr. House Ischemic cardiomyopathy: On metoprolol. Mild to moderate Aortic stenosis- 2D Echo done 03/31/18 revealed mild to moderate , mod TR, MR. PA 60-65mmHg Pulmonary hypertension- PA 60-65mmHg per 2D Echo done 03/31/18. Clinical Quality Measures DVT/VTE Risk/Contraindication: Risk Factor Score Per Nursin RFS Level Per Nursing on Admit: 4+=Very High LB MARTÍNEZ Apr 01, 2018 08:46
--- NOTE | 2018-04-01 09:14 | PM & R (SOAP) Progress Note ---
Subjective This was a face to face visit with the patient. Date Seen by Provider: Apr 01, 2018 Time Seen by Provider: 08:05 Subjective/Events-last exam Patient was seen in his room this AM C/O constipation meds being adjusted Traansfers improved to min to mod assist Accucheks trending down DR Bur[place]on has adjusted Insulin-trend Review of Systems Gastrointestinal: Constipation Neurological: Weakness Objective Physician Exam Last Set of Vital Signs Vital Signs Date Time Temp Pulse Resp B/P (MAP) Pulse Ox O2 Delivery O2 Flow Rate FiO2 04/01/18 06:00 98.1 68 16 128/68 (88) 94 Room Air Capillary Refill : I&O Intake and Output 03/31/18 23:59 Intake Total 720 ml Balance 720 ml Intake Oral 720 ml # Voids 4 # Bowel Movements 2 General: Alert, Cooperative, No Acute Distress HEENT: Atraumatic, PERRLA, EOMI, Mucous Memb Moist/[place], Other (Dysphagia dysarthria ) Neck: Supple, No JVD Lungs: Clear to Auscultation Heart: Normal S1, Normal S2, Other (Systolic murmur at the left sternal border) Abdomen: Normal Bowel Sounds, Soft, No Tenderness Extremities: No Clubbing, No Cyanosis, No Edema Skin: No Rashes, No Breakdown Neuro: Other (Left HP Upper more then lower ) Psych/Mental Status: Mental Status NL, Mood NL Results Lab Data Laboratory Tests 03/29/18 11:19: Glucometer 220H 03/29/18 15:37: Glucometer 220H 03/29/18 20:36: Glucometer 236H 03/30/18 06:35: Glucometer 214H 03/30/18 10:35: Glucometer 183H 03/30/18 16:18: Glucometer 94 03/30/18 20:21: Glucometer 122H 03/31/18 07:35: Glucometer 69L 03/31/18 08:41: Glucometer 108 03/31/18 11:07: Glucometer 135H 03/31/18 16:54: Glucometer 207H 03/31/18 21:31: Glucometer 135H 04/01/18 06:31: Glucometer 81 Assessment/Plan Assessment and Plan Rt cva with Left HP Dysarthria Dysphagia Atypical CP nonrecurrent Chronic A FIB CAD Insomnia improved with med Constipation meds to be adjusted further DM Insulin being adjusted Plan Continue PT/OT/ST Adjust meds as per above F/U with PCP and Cardiology Team Conference to be held later today-see report for full functional update and POC and ELOS Co-Morbidities that are continuing to impact the rehab process: (include details ) EMMY JULIEN MD Apr 01, 2018 09:14
[2018-04-01] MEDS: FAMOTIDINE 20 MG (PEPCID) TABLET PO SCH ×2 (09:53→22:34)
[2018-04-01] MEDS: inSUlin DETERMIR 1 UNIT/0.01 ML (LEVEMIR) CHARGE PER UNIT SQ SCH ×2 (09:53→22:36)
[2018-04-01] MEDS: CIPROFLOXACIN 0.3% (CILOXAN) 2.5 ML BTL OP SCH ×4 (09:53→22:33)
[2018-04-01] MEDS: SENNA W/DOCUSATE (SENOKOT S) TABLET PO SCH ×2 (09:53→21:00)
[2018-04-01] MEDS: APIXABAN 5 MG (ELIQUIS) TABLET PO SCH ×2 (09:53→22:34)
[2018-04-01] MEDS: AMIODARONE 200 MG (CORDARONE) TAB PO SCH ×2 (09:53→22:34)
[2018-04-01] MEDS: CLOPIDOGREL 75 MG (PLAVIX) TABLET PO SCH (09:53)
[2018-04-01] MEDS: LORATADINE (CLARITIN) 10 MG TAB PO SCH (09:53)
[2018-04-01] MEDS: FLUTICASONE NASAL SPRAY (FLONASE) 16 GM BTL NS SCH (09:54)
--- NOTE | 2018-04-01 10:00 | Physical Therapy Daily Note ---
PT Daily Note-Current Subjective Patient in bed sleeping pre tx, agrees to PT, states he is very tired, no complaints of pain. Patient needs to get partially dressed. Appearance Patient in bed post tx with nurse call, phone, tray, family in the room. Mental Status Patient Orientation: Person, Place, Situation Transfers Functional [place] Measure 0=Not Assessed/NA 4=Minimal Assistance 1=Total Assistance 5=Supervision or Setup 2=Maximal Assistance 6=Modified [place] 3=Moderate Assistance 7=Complete IndependenceIRFPAI Quality Coding Scale 6 Independent with activity with or without an assistive device 5 Patient requires set up or clean up by helper. Patient completes activity by themselves 4 Supervision or touching assist (CGA). [place] provide cues , steadying assist 3 The helper provides less than half the effort to complete the activity 2 The helper provides more than half the effort to complete the activity 1 Dependent. The helper does all the effort to complete an activity 7 Patient refused to complete or attempt activity 9 The patient did not perform the activity before the current illness or injury 88 Not attempted due to Medical conditions or safety concerns Transfers (B, C, W/C) (FIM): 2 Scootin Rollin Supine to/from Sit: 3 Sit to/from Stand: 2 Bed to/from Chair: 2 cues for positioning, safety, and hand placement Gait Training Gait (FIM): 1 Distance: 20'x4 Gait Level of Assist: 2 Gait Persons Needed: 1 Gait Assistive Device: Walker Rodolfo Patient seemed to lean more to the left today, probably because he is very tired. Wheelchair Training Wheelchair (FIM): 4 Distance: 150'x2 Wheelchair Level of Assist: 4 Type of Wheelchair: Manual Min assist occasionally to get around obstacles. Exercises Standing in parallel bars weight shifting, touching left foot onto step, sit to stand 2 sets of 5 Treatments wheelchair mobility, ambulation, balance training, dressing Assessment Current Status: Fair Progress Patient had a hard time with balance and endurance this morning due to fatigue. Needed extra rest breaks. PT Short Term Goals Short Term Goals Time Frame: Apr 02, 2018 Transfers (B,C,W/C) (FIM): 3 Gait (FIM): 1 Gait Distance Comment: 20' Gait Level of Assist: 2 Gait Assistive Device: Cane Large Base Quad Wheelchair Distance: 150'x2 PT Half-Way Goals Half-Way Goals PT Sap Analyst Goals Time Frame: Apr 16, 2018 Transfers (B,C,W/C) (FIM): 4 Sit to Lying (QC): 3 Lying-Sitting on Side/Bed(QC): 3 Sit to Stand (QC): 3 Rollin Roll Left to Right (QC): 3 Chair/Jxr-yn-Raiom Xfer(QC): 3 Car Transfer (QC): 3 Gait (FIM): 2 Distance: 50' Walk 10 feet (QC): 3 Walk 10ft-Uneven Surface(QC): 3 Walk 50ft with 2 Turns (QC): 3 Gait Level of Assist: 4 Gait Assistive Device: Cane Large Base Quad Wheelchair (FIM): 6 Distance: 200' Wheel 50 feet with 2 turns (QC: 6 PT Plan Problem List Problem List: Activity Tolerance, Functional Strength, Safety, Balance, Gait, Transfer, Bed Mobility Treatment/Plan Treatment Plan: Continue Plan of Care Treatment Plan: Bed Mobility, Concurrent Therapy, Education, Functional Activity Sukhdeep, Functional Strength, Group Therapy, Gait, Safety, Therapeutic Exercise, Transfers Treatment Duration: Apr 16, 2018 Frequency: At least 5 of 7 days/Wk (IRF) Estimated Hrs Per Day: 1.5 hours per day Patient and/or Family Agrees t: Yes Safety Risks/Education Patient Education: Gait Training, Transfer Techniques, Correct Positioning, W/ C Management, Safety Issues Teaching Recipient: Patient Teaching Methods: Demonstration, Discussion Response to Teaching: Reinforcement Needed Time/GCodes Time In: 0900 Time Out: 1000 Total Billed Treatment Time: 60 Total Billed Treatment 1 visit GT 30' FA 15' NM 15' CAMMY BLACK PT Apr 01, 2018 10:00
--- NOTE | 2018-04-01 11:26 | Cardiology Progress Note ---
Subjective Date Seen by Provider: Apr 01, 2018 Time Seen by Provider: 11:25 Subjective/Events-last exam Patient is laying down in bed, no new complaint. Reporting improvement in his symptoms Review of Systems General: No Chills, No Night Sweats, No Fatigue, No Malaise, No Appetite, No Other HEENT: No Head Aches, No Visual Changes, No Eye Pain, No Ear Pain, No Dysphasia , No Sinus Congestion, No Post Nasal Drip, No Sore Throat, No Other Pulmonary: No Dyspnea, No Cough, No Pleuritic Chest Pain, No Other Objective-Cardiology Exam Last Set of Vital Signs Vital Signs 04/01/18 06:00 Temp 98.1 Pulse 68 Resp 16 B/P (MAP) 128/68 (88) Pulse Ox 94 O2 Delivery Room Air Capillary Refill : I&O Intake and Output 04/01/18 00:00 Intake Total 720 ml Balance 720 ml Intake Oral 720 ml # Voids 4 # Bowel Movements 2 General: Alert, Cooperative, No Acute Distress HEENT: Atraumatic, PERRLA, EOMI, Mucous Memb Moist/[place], Other (Dysphagia dysarthria ) Neck: Supple, No JVD Lungs: Clear to Auscultation Heart: Normal S1, Normal S2, Other (Systolic murmur at the left sternal border) Abdomen: Normal Bowel Sounds, Soft, No Tenderness Extremities: No Clubbing, No Cyanosis, No Edema Skin: No Rashes, No Breakdown Neuro: Other (Left HP Upper more then lower ) Psych/Mental Status: Mental Status NL, Mood NL Results Lab A/P-Cardiology Admission Diagnosis Chest pain CAD CVA Persistent atrial fibrillation Assessment/Plan Chest pain, nonspecific etiology. Resolved. Responded to PPI. Acute coronary syndrome ruled out with serial negative troponin and negative EKG. ASA was discontinued and started on Plavix. Continue to monitor CAD with history of CABG: Recent coronary angiography at [facility] showed patent grafts with distal disease not amendable to PCI. Medical therapy was recommended. Recurrent CVA/thromboembolic events, continue on Eliquis. Persistent atrial fibrillation on amiodarone and Eliquis. Also on diltiazem and beta sammie. Continue to monitor, at this time it appear that he started on Eliquis after his last stroke about a week ago. Continue to monitor, managed by Dr. House Ischemic cardiomyopathy, chronic left ventricular systolic dysfunction, congestive heart failure, compensated, ejection fraction 45-50 percent, start metoprolol and losartan and monitor her tolerance and response Mild to moderate Aortic stenosis- 2D Echo done 03/31/18 revealed mild to moderate , mod TR, MR. PA 60-65mmHg Pulmonary hypertension- PA 60-65 mmHg per 2D Echo done 03/31/18. Clinical Quality Measures DVT/VTE Risk/Contraindication: Risk Factor Score Per Nursin RFS Level Per Nursing on Admit: 4+=Very High TYRESE HENRIQUEZ MD Apr 01, 2018 11:26
[2018-04-01 12:15] VITALS: BP 126/64
--- NOTE | 2018-04-01 13:34 | Occupational Ther Daily Note ---
OT Current Status-Daily Note Subjective Pt alert, lying in bed. Pt agrees to therapy. No c/o pain. Mental Status/Objective Patient Orientation: Person, Place, Time, Situation Functional [place] Measure 0=Not Assessed/NA 4=Minimal Assistance 1=Total Assistance 5=Supervision or Setup 2=Maximal Assistance 6=Modified [place] 3=Moderate Assistance 7=Complete [place] ADL-Treatment Pt agrees to shower. HOB raised and verbal cues to position L UE to go from supine to sit with SBA. Mod A SPT from surface to surface. Pt maneuvered w/c to large shower room and transferred to shower chair with cutout. Pt able to complete bathing while sitting in shower chair with cutout using hand held shower and long handle sponge with SBA due to decreased sitting balance, leaning toward left. Assist to dry buttocks and lower legs. Mod A to stand when hiking pants over hips. Doffs socks by self, dons with min A. Min A to don/doff pants over feet. Min A to doff shirt, mod A to don shirt. Sitting at w/c level, pt able to complete grooming by self. Functional [place] Measure 0=Not Assessed/NA 4=Minimal Assistance 1=Total Assistance 5=Supervision or Setup 2=Maximal Assistance 6=Modified [place] 3=Moderate Assistance 7=Complete IndependenceIRFPAI Quality Coding Scale 6 Independent with activity with or without an assistive device 5 Patient requires set up or clean up by helper. Patient completes activity by themselves 4 Supervision or touching assist (CGA). [place] provide cues , steadying assist 3 The helper provides less than half the effort to complete the activity 2 The helper provides more than half the effort to complete the activity 1 Dependent. The helper does all the effort to complete an activity 7 Patient refused to complete or attempt activity 9 The patient did not perform the activity before the current illness or injury 88 Not attempted due to Medical conditions or safety concerns Grooming (FIM): 6 Oral Hygiene (QC): 6 Bathing (FIM): 3 Bathing Location: L Arm, R Arm, L Upper Leg, R Upper Leg, L Lower Leg ( including foot), R Lower Leg (including foot), Chest, Abdomen, Buttocks, Perineal Area Shower/Bathe Self (QC): 3 Upper Body (FIM): 3 Upper Body Dressing (QC): 3 Lower Body Dressing (FIM): 2 Lower Body Dressing (QC): 2 On/Off Footwear (QC): 3 Toileting (FIM): 1 Toileting Hygiene (QC): 1 Shower Transfer(FIM): 3 Other Treatment Pt completed UE tasks with cones. Pt able to lightly grasp cones to move in horizontal abd/add of shldr. Picking cones up from floor with R hand and crossing midline to work on core strength. Pt rubbed L forearm on w/c arm rest and developed skin tear. Nrsg notified. After therapy, pt lying in bed with call light/phone in reach. All needs met in room. OT Short Term Goals Short Term Goals Time Frame: Apr 09, 2018 Eating(FIM): 6 Grooming(FIM): 5 Bathing(FIM): 4 Upper Body Dressing(FIM): 4 Lower Body Dressing(FIM): 3 Toileting(FIM): 4 Transfers (B,C,W/C) (FIM): 3 Toilet/Commode Transfer(FIM): 4 Shower Transfer(FIM): 4 Additional Short Term Goals: 1-Demonstrate ADL Tasks, 2-Verbalize Understanding , 3-ImproveStrength/Sukhdeep 1=Demonstrate adherence to instructed precautions during ADL tasks. 2=Patient will verbalize/demonstrate understanding of assistive devices/ modifications for ADL. 3=Patient will improve strength/tolerance for activity to enable patient to perform ADL's. OT Chcf Goals Selvage Machine Operator Goals Time Frame: Apr 23, 2018 Eating (FIM): 6 Eating (QC): 6 Groomin Oral Hygiene (QC): 6 Bathing(FIM): 5 Shower/Bathe Self (QC): 5 Upper Body Dressing(FIM): 5 Upper Body Dressing (QC): 5 Lower Body Dressing(FIM): 5 Lower Body Dressing (QC): 5 On/Off Footwear (QC): 5 Toileting(FIM): 6 Toileting Hygiene (QC): 6 Transfers (B,C,W/C) (FIM): 6 Toilet/Commode Transfer(FIM): 6 Toilet/Commode Transfer (QC): 6 Shower Transfer(FIM): 5 Additional Goals: 1-Demonstrate ADL Tasks, 2-Verbalize Understanding, 3- ImproveStrength/Sukhdeep 1=Demonstrate adherence to instructed precautions during ADL tasks. 2=Patient will verbalize/demonstrate understanding of assistive devices/ modifications for ADL. 3=Patient will improve strength/tolerance for activity to enable patient to perform ADL's. OT Education/Plan Discharge Recommendations Plan/Recommendations: Continue POC Treatment Plan/Plan of Care Patient would benefit from OT for education, treatment and training to promote independence in ADL's, mobility, safety and/or upper extremity function for ADL' s. Plan of Care: ADL Retraining, Functional Mobility, Group Exercise/Act as Ind, UE Funct Exercise/Act Treatment Duration: Apr 23, 2018 Frequency: At least 5 of 7 days/Wk (IRF) Estimated Hrs Per Day: 1.5 hours per day Agreement: Yes Rehab Potential: Good Time/GCodes Start Time: 11:00 Stop Time: 12:15 Total Time Billed (hr/min): 75 Billed Treatment Time 1 visit-ADL 4 (55 min) NM 1 (20 min) JIMMY DHILLON Apr 01, 2018 13:34
--- NOTE | 2018-04-01 14:28 | Physical Therapy Daily Note ---
PT Daily Note-Current Subjective Patient in bed pre tx, agrees to PT, no complaints of pain. Appearance Patient in bed post tx with nurse call, phone, tray, family in the room. Mental Status Patient Orientation: Person, Place, Situation Transfers Functional [place] Measure 0=Not Assessed/NA 4=Minimal Assistance 1=Total Assistance 5=Supervision or Setup 2=Maximal Assistance 6=Modified [place] 3=Moderate Assistance 7=Complete IndependenceIRFPAI Quality Coding Scale 6 Independent with activity with or without an assistive device 5 Patient requires set up or clean up by helper. Patient completes activity by themselves 4 Supervision or touching assist (CGA). [place] provide cues , steadying assist 3 The helper provides less than half the effort to complete the activity 2 The helper provides more than half the effort to complete the activity 1 Dependent. The helper does all the effort to complete an activity 7 Patient refused to complete or attempt activity 9 The patient did not perform the activity before the current illness or injury 88 Not attempted due to Medical conditions or safety concerns Transfers (B, C, W/C) (FIM): 3 Scootin Rollin Supine to/from Sit: 3 Sit to/from Stand: 3 Bed to/from Chair: 3 Wheelchair Training Does the Pt Use a Wheelchair?: Yes Wheelchair (FIM): 5 Distance: 150' Wheelchair Level of Assist: 5 Type of Wheelchair: Manual Exercises NuStep Minutes: 15 NuStep Workload: 3 Treatments bed mobility and transfers, wheelchair mobility, functional strengthening Assessment Current Status: Fair Progress Patient fatigues very quickly, needed several rest breaks while on the NuStep. PT Short Term Goals Short Term Goals Time Frame: Apr 02, 2018 Transfers (B,C,W/C) (FIM): 3 Gait (FIM): 1 Gait Distance Comment: 20' Gait Level of Assist: 2 Gait Assistive Device: Cane Large Base Quad Wheelchair Distance: 150'x2 PT Brand Communications Manager Goals Mcc Goals PT Mcc Goals Time Frame: Apr 16, 2018 Transfers (B,C,W/C) (FIM): 4 Sit to Lying (QC): 3 Lying-Sitting on Side/Bed(QC): 3 Sit to Stand (QC): 3 Rollin Roll Left to Right (QC): 3 Chair/Bia-kr-Pznuq Xfer(QC): 3 Car Transfer (QC): 3 Gait (FIM): 2 Distance: 50' Walk 10 feet (QC): 3 Walk 10ft-Uneven Surface(QC): 3 Walk 50ft with 2 Turns (QC): 3 Gait Level of Assist: 4 Gait Assistive Device: Cane Large Base Quad Wheelchair (FIM): 6 Distance: 200' Wheel 50 feet with 2 turns (QC: 6 PT Plan Problem List Problem List: Activity Tolerance, Functional Strength, Safety, Balance, Gait, Transfer, Bed Mobility Treatment/Plan Treatment Plan: Continue Plan of Care Treatment Plan: Bed Mobility, Concurrent Therapy, Education, Functional Activity Sukhdeep, Functional Strength, Group Therapy, Gait, Safety, Therapeutic Exercise, Transfers Treatment Duration: Apr 16, 2018 Frequency: At least 5 of 7 days/Wk (IRF) Estimated Hrs Per Day: 1.5 hours per day Patient and/or Family Agrees t: Yes Safety Risks/Education Patient Education: Transfer Techniques, Correct Positioning, W/C Management, Safety Issues Teaching Recipient: Patient Teaching Methods: Demonstration, Discussion Response to Teaching: Reinforcement Needed Time/GCodes Time In: 1400 Time Out: 1430 Total Billed Treatment Time: 30 Total Billed Treatment 1 visit EX 15' FA 15' CAMMY BLACK PT Apr 01, 2018 14:28
[2018-04-01 15:25] VITALS: BP 128/69
--- NOTE | 2018-04-01 15:52 | Speech Therapy Daily Note ---
Speech Daily Progress Note Subjective Date Seen by Provider: Apr 01, 2018 Time Seen by Provider: 10:30 Pt motivated and cooperative. Pain Numeric Pain Scale: 0-No Pain Objective Dysphagia Exercises - pt performs dysphagia exercises with min assist. He has difficulty with the larynx elevation exercises. Assessment Assessment Current Status: Fair Progress Communication Comprehension: 6 Expression: 7 Social Cognition Social Interaction: 7 Problem Solvin Memory: 7 Speech Short Term Goals Short Term Goals Short Term Goals Pt will complete Oral Motor Exercises with min assist. Time Frame-ST week Speech Fci Goals Fci Goals Pt will tolerate regular diet with thin liquids with no s/s of aspiration. Time Frame: 3 weeks Speech-Plan Patient/Family Goals Patient/Family Goals: to be able to drink thin liquids Treatment Plan Speech Therapy Treatment Plan: Continue Plan of Care pt very motivated Treatment Duration: Mar 26, 2018 Frequency: 5 times per week Estimated Hrs Per Day: .5 hour per day Rehab Potential: Fair Pt/Family Agrees to Plan: Yes Safety Risks/Education Teaching Recipient: Patient, Family Response to Teaching: Verbalize Understanding Time Speech Therapy Time In: 10:30 Speech Therapy Time Out: 11:00 Total Billed Time: 30 Billed Treatment Time 1, DYST No MAGALY GARAY Apr 01, 2018 15:52
[2018-04-01] MEDS: MELATONIN 3 MG TABLET PO SCH (22:34)
[2018-04-01] MEDS: ATORVASTATIN 40 MG (LIPITOR) TABLET PO SCH (22:34)
[2018-04-02] MEDS: NYSTATIN ORAL SUSP 5 ML UDC PO SCH ×5 (00:27→23:42)
[2018-04-02] MEDS: inSUlin ASPART (NovoLOG) 1 UNIT/0.01 ML (CHARGE PER UNIT) SC SCH ×4 (06:31→21:31)
[2018-04-02 06:58] VITALS: BP 100/56
--- NOTE | 2018-04-02 08:35 | Cardiology Progress Note ---
Subjective Date Seen by Provider: Apr 02, 2018 Time Seen by Provider: 08:33 Subjective/Events-last exam Patient receiving PT. Complains of difficulties sleeping last night d/t GI upset. Reports some improvement today. Denies any CP or dyspnea. Review of Systems General: No Chills, No Night Sweats; Fatigue; No Malaise HEENT: No Visual Changes, No Dysphasia, No Sore Throat Pulmonary: No Dyspnea, No Cough Cardiovascular: No: Chest Pain, Palpitations, Edema Gastrointestinal: Nausea; No: Vomiting, Abdominal Pain, Diarrhea, Constipation Genitourinary: No Dysuria, No Frequency Musculoskeletal: No: neck pain, back pain Neurological: Weakness (left sided HP); No: Numbness, Change in speech, Confusion Objective-Cardiology Exam Last Set of Vital Signs Vital Signs 04/02/18 06:58 Temp 99.2 Pulse 62 Resp 17 B/P (MAP) 100/56 (71) Pulse Ox 94 O2 Delivery Room Air Capillary Refill : I&O Intake and Output 04/02/18 00:00 Intake Total 1160 ml Balance 1160 ml Intake Oral 1160 ml # Voids 6 # Bowel Movements 3 General: Alert, Cooperative, No Acute Distress HEENT: Atraumatic, PERRLA, EOMI, Mucous Memb Moist/[place], Other (Dysphagia dysarthria ) Neck: Supple, No JVD Lungs: Clear to Auscultation Heart: Normal S1, Normal S2, Other (Systolic murmur at the left sternal border) Abdomen: Normal Bowel Sounds, Soft, No Tenderness Extremities: No Clubbing, No Cyanosis, No Edema Skin: No Rashes, No Breakdown Neuro: Other (Left HP Upper more then lower ) Psych/Mental Status: Mental Status NL, Mood NL A/P-Cardiology Admission Diagnosis Chest pain CAD CVA Persistent atrial fibrillation Assessment/Plan Chest pain, nonspecific etiology. Resolved. Responded to PPI. Acute coronary syndrome ruled out with serial negative troponin and negative EKG. ASA was discontinued and started on Plavix. Continue to monitor CAD with history of CABG: Recent coronary angiography at [facility] showed patent grafts with distal disease not amendable to PCI. Medical therapy was recommended. Recurrent CVA/thromboembolic events, continue on Eliquis. Persistent atrial fibrillation on amiodarone and Eliquis. Also on diltiazem and beta sammie. Continue to monitor, at this time it appear that he started on Eliquis after his last stroke about a week ago. Continue to monitor, managed by Dr. House Ischemic cardiomyopathy, chronic left ventricular systolic dysfunction, congestive heart failure, compensated, ejection fraction 45-50 percent, start metoprolol and losartan and monitor her tolerance and response Mild to moderate Aortic stenosis- 2D Echo done 03/31/18 revealed mild to moderate , mod TR, MR. PA 60-65mmHg Pulmonary hypertension- PA 60-65 mmHg per 2D Echo done 03/31/18. Clinical Quality Measures DVT/VTE Risk/Contraindication: Risk Factor Score Per Nursin RFS Level Per Nursing on Admit: 4+=Very High LB MARTÍNEZ Apr 02, 2018 08:35
--- NOTE | 2018-04-02 08:56 | Physical Therapy Daily Note ---
PT Daily Note-Current Subjective Patient in bed pre tx, agrees to PT, no complaints of pain. Patient needs dressed, upper. Appearance Patient BTB post tx with nurse call, phone, tray, all needs met. Mental Status Patient Orientation: Person, Place, Situation Transfers Functional [place] Measure 0=Not Assessed/NA 4=Minimal Assistance 1=Total Assistance 5=Supervision or Setup 2=Maximal Assistance 6=Modified [place] 3=Moderate Assistance 7=Complete IndependenceIRFPAI Quality Coding Scale 6 Independent with activity with or without an assistive device 5 Patient requires set up or clean up by helper. Patient completes activity by themselves 4 Supervision or touching assist (CGA). [place] provide cues , steadying assist 3 The helper provides less than half the effort to complete the activity 2 The helper provides more than half the effort to complete the activity 1 Dependent. The helper does all the effort to complete an activity 7 Patient refused to complete or attempt activity 9 The patient did not perform the activity before the current illness or injury 88 Not attempted due to Medical conditions or safety concerns Transfers (B, C, W/C) (FIM): 3 Scootin Rollin Supine to/from Sit: 4 Sit to/from Stand: 3 Bed to/from Chair: 3 Patient has a hard time sitting at the edge of the hospital bed, he tends to constantly, slowly, fall backwards. Gait Training Gait (FIM): 1 Distance: 20'x4 Gait Level of Assist: 3 Gait Persons Needed: 1 Gait Assistive Device: Walker Rodolfo Mod assist for balance and weight shifting. Patient does have dorsiflexion on the left side. Wheelchair Training Does the Pt Use a Wheelchair?: Yes Wheelchair (FIM): 5 Distance: 150' Wheelchair Level of Assist: 5 Type of Wheelchair: Manual Exercises Supine Ex: Ankle pumps, Heel Slides, Short Arc Quads (with 3# ankle weight), Straight leg raise, Hip abd/add Supine Reps: 10 Treatments bed mobility and transfers, dressing, ambulation, AROM/strengthening Assessment Current Status: Fair Progress slowly improving ambulation and standing balance PT Short Term Goals Short Term Goals Time Frame: Apr 02, 2018 Transfers (B,C,W/C) (FIM): 3 Gait (FIM): 1 Gait Distance Comment: 20' Gait Level of Assist: 2 Gait Assistive Device: Cane Large Base Quad Wheelchair Distance: 150' PT Residential Goals Residential Goals PT Residential Goals Time Frame: Apr 16, 2018 Transfers (B,C,W/C) (FIM): 4 Sit to Lying (QC): 3 Lying-Sitting on Side/Bed(QC): 3 Sit to Stand (QC): 3 Rollin Roll Left to Right (QC): 3 Chair/Vni-vm-Exhnv Xfer(QC): 3 Car Transfer (QC): 3 Gait (FIM): 2 Distance: 50' Walk 10 feet (QC): 3 Walk 10ft-Uneven Surface(QC): 3 Walk 50ft with 2 Turns (QC): 3 Gait Level of Assist: 4 Gait Assistive Device: Cane Large Base Quad Wheelchair (FIM): 6 Distance: 200' Wheel 50 feet with 2 turns (QC: 6 PT Plan Problem List Problem List: Activity Tolerance, Functional Strength, Safety, Balance, Gait, Transfer, Bed Mobility, ROM Treatment/Plan Treatment Plan: Continue Plan of Care Treatment Plan: Bed Mobility, Concurrent Therapy, Education, Functional Activity Sukhdeep, Functional Strength, Group Therapy, Gait, Safety, Therapeutic Exercise, Transfers Treatment Duration: Apr 16, 2018 Frequency: At least 5 of 7 days/Wk (IRF) Estimated Hrs Per Day: 1.5 hours per day Patient and/or Family Agrees t: Yes Safety Risks/Education Patient Education: Gait Training, Transfer Techniques, Correct Positioning, W/ C Management, Safety Issues Teaching Recipient: Patient Teaching Methods: Demonstration, Discussion Response to Teaching: Reinforcement Needed Time/GCodes Time In: 0800 Time Out: 0900 Total Billed Treatment Time: 60 Total Billed Treatment 1 visit GT 25' EX 15' FA 20' CAMMY BLACK PT Apr 02, 2018 08:56
--- NOTE | 2018-04-02 08:56 | PM & R (SOAP) Progress Note ---
Subjective This was a face to face visit with the patient. Date Seen by Provider: Apr 02, 2018 Time Seen by Provider: 07:45 Subjective/Events-last exam Patient was seen in his room this AM. Patient Mod assist for transfers.Had BM with adjustment in meds Sleeping better DR sharpe following for A FIB with Meds adjusted Patient gradually improving. Objective Physician Exam Last Set of Vital Signs Vital Signs Date Time Temp Pulse Resp B/P (MAP) Pulse Ox O2 Delivery O2 Flow Rate FiO2 04/02/18 06:58 99.2 62 17 100/56 (71) 94 Room Air Capillary Refill : I&O Intake and Output 04/02/18 00:00 Intake Total 1160 ml Balance 1160 ml Intake Oral 1160 ml # Voids 6 # Bowel Movements 3 General: Alert, Cooperative, No Acute Distress HEENT: Atraumatic, PERRLA, EOMI, Mucous Memb Moist/[place], Other (Dysphagia dysarthria ) Neck: Supple, No JVD Lungs: Clear to Auscultation Heart: Normal S1, Normal S2, Other (Systolic murmur at the left sternal border) Abdomen: Normal Bowel Sounds, Soft, No Tenderness Extremities: No Clubbing, No Cyanosis, No Edema Skin: No Rashes, No Breakdown Neuro: Other (Left HP Upper more then lower ) Psych/Mental Status: Mental Status NL, Mood NL Results Lab Data Laboratory Tests 03/30/18 10:35: Glucometer 183H 03/30/18 16:18: Glucometer 94 03/30/18 20:21: Glucometer 122H 03/31/18 07:35: Glucometer 69L 03/31/18 08:41: Glucometer 108 03/31/18 11:07: Glucometer 135H 03/31/18 16:54: Glucometer 207H 03/31/18 21:31: Glucometer 135H 04/01/18 06:31: Glucometer 81 04/01/18 11:00: Glucometer 192H 04/01/18 15:29: Glucometer 101 04/01/18 20:46: Glucometer 189H 04/02/18 06:15: Glucometer 100 Assessment/Plan Assessment and Plan Rt CVA with Left HP PT/OT/ST continues Dysarthria and dysphagia ST following Atypical CP nonrecurrent Chronic A FIB DR Sharpe adjusting meds CAD Insomnia improved with med Constipation omproved with meds DM better controlled with adjustment in med Plan Continue Pt/Ot/St F/U with cardiology prn Team Conference held yesterday-see report for full functional update and POC and ELOS Co-Morbidities that are continuing to impact the rehab process: (include details ) EMMY JULIEN MD Apr 02, 2018 08:56
[2018-04-02] MEDS: CLOPIDOGREL 75 MG (PLAVIX) TABLET PO SCH (09:28)
[2018-04-02] MEDS: APIXABAN 5 MG (ELIQUIS) TABLET PO SCH ×2 (09:28→21:31)
[2018-04-02] MEDS: FAMOTIDINE 20 MG (PEPCID) TABLET PO SCH ×2 (09:28→21:32)
[2018-04-02] MEDS: LORATADINE (CLARITIN) 10 MG TAB PO SCH (09:28)
[2018-04-02] MEDS: AMIODARONE 200 MG (CORDARONE) TAB PO SCH ×2 (09:28→21:32)
[2018-04-02] MEDS: inSUlin DETERMIR 1 UNIT/0.01 ML (LEVEMIR) CHARGE PER UNIT SQ SCH ×2 (09:28→21:31)
[2018-04-02 09:30] VITALS: BP 107/52
[2018-04-02] MEDS: CIPROFLOXACIN 0.3% (CILOXAN) 2.5 ML BTL OP SCH ×4 (09:30→21:33)
[2018-04-02] MEDS: LOSARTAN 25 MG (COZAAR) TAB PO SCH (09:33)
[2018-04-02] MEDS: FLUTICASONE NASAL SPRAY (FLONASE) 16 GM BTL NS SCH (09:33)
[2018-04-02] MEDS: SENNA W/DOCUSATE (SENOKOT S) TABLET PO SCH ×2 (09:34→21:31)
--- NOTE | 2018-04-02 13:42 | Speech Therapy Daily Note ---
Speech Daily Progress Note Subjective Date Seen by Provider: Apr 02, 2018 Time Seen by Provider: 11:30 Pt appears very fatigued. Pain Numeric Pain Scale: 0-No Pain Objective Pt very fatigued Performed dysphagia exercises with decreased effort due to fatigue. Assessment Assessment Current Status: Fair Progress Treatment Plan Continue Plan of Care Communication Comprehension: 6 Expression: 7 Social Cognition Social Interaction: 7 Problem Solvin Memory: 7 Speech Short Term Goals Short Term Goals Short Term Goals Pt will complete Oral Motor Exercises with min assist. Time Frame-ST week Speech Camp Housekeeper Goals Camp Housekeeper Goals Pt will tolerate regular diet with thin liquids with no s/s of aspiration. Time Frame: 3 weeks Speech-Plan Patient/Family Goals Patient/Family Goals: to have thin liquids again. Treatment Plan Speech Therapy Treatment Plan: Continue Plan of Care pt is very motivated to improve. Treatment Duration: Mar 26, 2018 Frequency: 5 times per week Estimated Hrs Per Day: .5 hour per day Rehab Potential: Fair Time Speech Therapy Time In: 11:30 Speech Therapy Time Out: 12:00 Total Billed Time: 30 Billed Treatment Time 1, DYST No MAGALY GARAY Apr 02, 2018 13:42
--- NOTE | 2018-04-02 14:40 | Therapy Group Daily Note ---
Therapy Daily Group Note Patient Education Topic Home Safety Exercises LE Seated Exercise, UE Exercise Other/Notes Pt transported via w/c to therapy gym using FWW for OT/PT group. Group consisted of introductions (name, place living, would you change your name?), socialization, home safety education, home safety trivia/jeopardy and seated UE/ LE exercises. Pt introduced self appropriately and actively listened to peers. Pt contributed to conversations and discussion with peers. Pt verbalized understanding of educational topic and was able to answer questions correctly. Pt able complete R UE and attempted with L UE exercises. After therapy, pt sitting in recliner with call light/phone in reach. All needs met in room. Start Time: 13:00 Stop Time: 14:00 Total Billed Treatment Time: 60 Total Billed Treatment 1-GRP JIMMY DHILLON Apr 02, 2018 14:40
--- NOTE | 2018-04-02 14:52 | Occupational Ther Daily Note ---
OT Current Status-Daily Note Subjective Pt alert, lying in bed. Pt agrees to therapy. No c/o pain at this time. Pt appears tired and needs processing time to respond to questions. Mental Status/Objective Patient Orientation: Person, Place, Time, Situation Functional [place] Measure 0=Not Assessed/NA 4=Minimal Assistance 1=Total Assistance 5=Supervision or Setup 2=Maximal Assistance 6=Modified [place] 3=Moderate Assistance 7=Complete [place] ADL-Treatment Min A with HOB raised and using bedrail, pt is able to go from supine to sitting. Mod A to transfer into w/c. Transported pt to bathroom and pt was able to complete own grooming. Pt maneuvered w/c to gym. Transferred with mod A to therapy mat. Completed PROM with L UE and pt fell asleep. AAROM for L UE, pt was able to increase active movement with multiple repetitions then fatigued quickly. After therapy, pt lying in bed with call light/phone in reach. All needs met in room. Functional [place] Measure 0=Not Assessed/NA 4=Minimal Assistance 1=Total Assistance 5=Supervision or Setup 2=Maximal Assistance 6=Modified [place] 3=Moderate Assistance 7=Complete IndependenceIRFPAI Quality Coding Scale 6 Independent with activity with or without an assistive device 5 Patient requires set up or clean up by helper. Patient completes activity by themselves 4 Supervision or touching assist (CGA). [place] provide cues , steadying assist 3 The helper provides less than half the effort to complete the activity 2 The helper provides more than half the effort to complete the activity 1 Dependent. The helper does all the effort to complete an activity 7 Patient refused to complete or attempt activity 9 The patient did not perform the activity before the current illness or injury 88 Not attempted due to Medical conditions or safety concerns OT Short Term Goals Short Term Goals Time Frame: Apr 09, 2018 Eating(FIM): 6 Grooming(FIM): 5 Bathing(FIM): 4 Upper Body Dressing(FIM): 4 Lower Body Dressing(FIM): 3 Toileting(FIM): 4 Transfers (B,C,W/C) (FIM): 3 Toilet/Commode Transfer(FIM): 4 Shower Transfer(FIM): 4 Additional Short Term Goals: 1-Demonstrate ADL Tasks, 2-Verbalize Understanding , 3-ImproveStrength/Sukhdeep 1=Demonstrate adherence to instructed precautions during ADL tasks. 2=Patient will verbalize/demonstrate understanding of assistive devices/ modifications for ADL. 3=Patient will improve strength/tolerance for activity to enable patient to perform ADL's. OT Snf Goals Snf Goals Time Frame: Apr 23, 2018 Eating (FIM): 6 Eating (QC): 6 Groomin Oral Hygiene (QC): 6 Bathing(FIM): 5 Shower/Bathe Self (QC): 5 Upper Body Dressing(FIM): 5 Upper Body Dressing (QC): 5 Lower Body Dressing(FIM): 5 Lower Body Dressing (QC): 5 On/Off Footwear (QC): 5 Toileting(FIM): 6 Toileting Hygiene (QC): 6 Transfers (B,C,W/C) (FIM): 6 Toilet/Commode Transfer(FIM): 6 Toilet/Commode Transfer (QC): 6 Shower Transfer(FIM): 5 Additional Goals: 1-Demonstrate ADL Tasks, 2-Verbalize Understanding, 3- ImproveStrength/Sukhdeep 1=Demonstrate adherence to instructed precautions during ADL tasks. 2=Patient will verbalize/demonstrate understanding of assistive devices/ modifications for ADL. 3=Patient will improve strength/tolerance for activity to enable patient to perform ADL's. OT Education/Plan Discharge Recommendations Plan/Recommendations: Continue POC Treatment Plan/Plan of Care Patient would benefit from OT for education, treatment and training to promote independence in ADL's, mobility, safety and/or upper extremity function for ADL' s. Plan of Care: ADL Retraining, Functional Mobility, Group Exercise/Act as Ind, UE Funct Exercise/Act Treatment Duration: Apr 23, 2018 Frequency: At least 5 of 7 days/Wk (IRF) Estimated Hrs Per Day: 1.5 hours per day Agreement: Yes Rehab Potential: Fair Time/GCodes Start Time: 09:45 Stop Time: 10:30 Total Time Billed (hr/min): 45 Billed Treatment Time 1 visit-ADL 1 (10 min) NM 2 (35 min) JIMMY DHILLON Apr 02, 2018 14:52
--- NOTE | 2018-04-02 16:13 | Cardiology Progress Note ---
Subjective Date Seen by Provider: Apr 02, 2018 Time Seen by Provider: 16:12 Subjective/Events-last exam Patient is laying down in bed, no new complaint, recovering slowly Review of Systems General: No Chills, No Night Sweats, No Fatigue, No Malaise, No Appetite, No Other HEENT: No Head Aches, No Visual Changes, No Eye Pain, No Ear Pain, No Dysphasia , No Sinus Congestion, No Post Nasal Drip, No Sore Throat, No Other Pulmonary: No Dyspnea, No Cough, No Pleuritic Chest Pain, No Other Cardiovascular: No: Chest Pain, Palpitations, Orthopnea, Paroxysmal Noc. Dyspnea, Edema, Lt Headedness, Other Objective-Cardiology Exam Last Set of Vital Signs Vital Signs 04/02/18 04/02/18 06:58 09:00 Temp 99.2 Pulse 62 Resp 17 B/P (MAP) 100/56 (71) Pulse Ox 94 O2 Delivery Room Air Capillary Refill : I&O Intake and Output 04/01/18 23:59 Intake Total 1160 ml Balance 1160 ml Intake Oral 1160 ml # Voids 6 # Bowel Movements 3 General: Alert, Cooperative, No Acute Distress HEENT: Atraumatic, PERRLA, EOMI, Mucous Memb Moist/[place], Other (Dysphagia dysarthria ) Neck: Supple, No JVD Lungs: Clear to Auscultation Heart: Normal S1, Normal S2, Other (Systolic murmur at the left sternal border) Abdomen: Normal Bowel Sounds, Soft, No Tenderness Extremities: No Clubbing, No Cyanosis, No Edema Skin: No Rashes, No Breakdown Neuro: Other (Left HP Upper more then lower ) Psych/Mental Status: Mental Status NL, Mood NL A/P-Cardiology Admission Diagnosis Chest pain CAD CVA Persistent atrial fibrillation Assessment/Plan Chest pain, nonspecific etiology. Resolved. Responded to PPI. Acute coronary syndrome ruled out with serial negative troponin and negative EKG. ASA was discontinued and started on Plavix. Continue to monitor CAD with history of CABG: Recent coronary angiography at [facility] showed patent grafts with distal disease not amendable to PCI. Medical therapy was recommended. Recurrent CVA/thromboembolic events, continue on Eliquis. Persistent atrial fibrillation on amiodarone and Eliquis. Also on diltiazem and beta sammie. Continue to monitor, at this time it appear that he started on Eliquis after his last stroke about a week ago. Continue to monitor, managed by Dr. House Ischemic cardiomyopathy, chronic left ventricular systolic dysfunction, congestive heart failure, compensated, ejection fraction 45-50 percent, start metoprolol and losartan and monitor her tolerance and response Mild to moderate Aortic stenosis- 2D Echo done 03/31/18 revealed mild to moderate , mod TR, MR. PA 60-65mmHg Pulmonary hypertension- PA 60-65 mmHg per 2D Echo done 03/31/18. Clinical Quality Measures DVT/VTE Risk/Contraindication: Risk Factor Score Per Nursin RFS Level Per Nursing on Admit: 4+=Very High TYRESE HENRIQUEZ MD Apr 02, 2018 4:13 pm
[2018-04-02 16:50] VITALS: BP 114/65
[2018-04-02] MEDS: ATORVASTATIN 40 MG (LIPITOR) TABLET PO SCH (21:32)
[2018-04-02] MEDS: MELATONIN 3 MG TABLET PO SCH (21:32)
[2018-04-02] MEDS: POLYETHYLENE GLYCOL 17 GM (MIRALAX) PACK PO SCH (21:33)
[2018-04-03] MEDS: NYSTATIN ORAL SUSP 5 ML UDC PO SCH ×3 (05:38→17:17)
[2018-04-03] MEDS: inSUlin ASPART (NovoLOG) 1 UNIT/0.01 ML (CHARGE PER UNIT) SC SCH ×4 (05:40→20:42)
[2018-04-03 06:36] VITALS: BP 109/59
--- NOTE | 2018-04-03 08:51 | Speech Therapy Daily Note ---
Speech Daily Progress Note Subjective Date Seen by Provider: Apr 03, 2018 Time Seen by Provider: 13:00 Pt up in chair. Pleasant and cooperative. Pain Numeric Pain Scale: 1 Objective Pt completed dysphagia exercises with min assist. Despite being fatigued, pt participates. Assessment Assessment Current Status: Good Progress, Fair Progress Treatment Plan Continue Plan of Care Communication Comprehension: 6 Expression: 7 Social Cognition Social Interaction: 7 Problem Solvin Memory: 7 Speech Short Term Goals Short Term Goals Short Term Goals Pt will complete Oral Motor Exercises with min assist. Time Frame-ST week Speech Care Home Goals Care Home Goals Pt will tolerate regular diet with thin liquids with no s/s of aspiration. Time Frame: 3 weeks Speech-Plan Patient/Family Goals Patient/Family Goals: drink thin liquids. Treatment Plan Speech Therapy Treatment Plan: Continue Plan of Care pt making fair progress despite being fatigued frequently. Treatment Duration: Mar 26, 2018 Frequency: 5 times per week Estimated Hrs Per Day: .5 hour per day Rehab Potential: Fair Pt/Family Agrees to Plan: Yes Safety Risks/Education Teaching Recipient: Patient Teaching Methods: Discussion Response to Teaching: Verbalize Understanding Time Speech Therapy Time In: 14:00 Speech Therapy Time Out: 14:30 Total Billed Time: 30 Billed Treatment Time 1, PRINCE JARRODISIAHCaroline ROBLES Apr 03, 2018 08:51
--- NOTE | 2018-04-03 09:00 | Physical Therapy Daily Note ---
PT Daily Note-Current Subjective Patient in bed sleeping pre tx, agrees to PT upon waking, no complaints of pain. Appearance Patient in bed post tx with nurse call, phone, tray, in room. Mental Status Patient Orientation: Person, Place, Situation Transfers Functional [place] Measure 0=Not Assessed/NA 4=Minimal Assistance 1=Total Assistance 5=Supervision or Setup 2=Maximal Assistance 6=Modified [place] 3=Moderate Assistance 7=Complete IndependenceIRFPAI Quality Coding Scale 6 Independent with activity with or without an assistive device 5 Patient requires set up or clean up by helper. Patient completes activity by themselves 4 Supervision or touching assist (CGA). [place] provide cues , steadying assist 3 The helper provides less than half the effort to complete the activity 2 The helper provides more than half the effort to complete the activity 1 Dependent. The helper does all the effort to complete an activity 7 Patient refused to complete or attempt activity 9 The patient did not perform the activity before the current illness or injury 88 Not attempted due to Medical conditions or safety concerns Transfers (B, C, W/C) (FIM): 3 Scootin Rollin Supine to/from Sit: 3 Sit to/from Stand: 3 Bed to/from Chair: 3 Patient still needs cues for hand placement with almost every stand pivot transfer. Gait Training Gait (FIM): 1 Distance: 20'x4 Gait Level of Assist: 3 Gait Persons Needed: 1 Gait Assistive Device: Walker Rodolfo Patient needs assist with balance and weight shifting. Wheelchair Training Does the Pt Use a Wheelchair?: Yes Wheelchair (FIM): 5 Distance: 150'x2 Wheelchair Level of Assist: 5 Type of Wheelchair: Manual Exercises LAQ alternating for 5 min, parallel bars exercises (SLS, step-ups) Treatments bed mobility and transfers, ambulation, functional strengthening Assessment Current Status: Fair Progress Patient needs more practice on stand pivot transfers, was very tired this morning. PT Short Term Goals Short Term Goals Time Frame: Apr 02, 2018 Transfers (B,C,W/C) (FIM): 3 Gait (FIM): 1 Gait Distance Comment: 20' Gait Level of Assist: 2 Gait Assistive Device: Cane Large Base Quad Wheelchair Distance: 150' PT Longterm Goals Longterm Goals PT Office System Analyst Goals Time Frame: Apr 16, 2018 Transfers (B,C,W/C) (FIM): 4 Sit to Lying (QC): 3 Lying-Sitting on Side/Bed(QC): 3 Sit to Stand (QC): 3 Rollin Roll Left to Right (QC): 3 Chair/Jvp-iz-Gsppt Xfer(QC): 3 Car Transfer (QC): 3 Gait (FIM): 2 Distance: 50' Walk 10 feet (QC): 3 Walk 10ft-Uneven Surface(QC): 3 Walk 50ft with 2 Turns (QC): 3 Gait Level of Assist: 4 Gait Assistive Device: Cane Large Base Quad Wheelchair (FIM): 6 Distance: 200' Wheel 50 feet with 2 turns (QC: 6 PT Plan Problem List Problem List: Activity Tolerance, Functional Strength, Safety, Balance, Gait, Transfer, Bed Mobility Treatment/Plan Treatment Plan: Continue Plan of Care Treatment Plan: Bed Mobility, Concurrent Therapy, Education, Functional Activity Sukhdeep, Functional Strength, Group Therapy, Gait, Safety, Therapeutic Exercise, Transfers Treatment Duration: Apr 16, 2018 Frequency: At least 5 of 7 days/Wk (IRF) Estimated Hrs Per Day: 1.5 hours per day Patient and/or Family Agrees t: Yes Safety Risks/Education Patient Education: Gait Training, Correct Positioning, W/C Management, Safety Issues Teaching Recipient: Patient Teaching Methods: Demonstration, Discussion Response to Teaching: Reinforcement Needed Time/GCodes Time In: 0800 Time Out: 0900 Total Billed Treatment Time: 60 Total Billed Treatment 1 visit GT 30' EX 15' FA 15' CAMMY BLACK PT Apr 03, 2018 08:59
[2018-04-03 09:10] VITALS: BP 114/67
[2018-04-03] MEDS: SENNA W/DOCUSATE (SENOKOT S) TABLET PO SCH ×2 (09:11→20:42)
[2018-04-03] MEDS: FAMOTIDINE 20 MG (PEPCID) TABLET PO SCH ×2 (09:11→20:41)
[2018-04-03] MEDS: APIXABAN 5 MG (ELIQUIS) TABLET PO SCH ×2 (09:11→20:41)
[2018-04-03] MEDS: CLOPIDOGREL 75 MG (PLAVIX) TABLET PO SCH (09:11)
[2018-04-03] MEDS: AMIODARONE 200 MG (CORDARONE) TAB PO SCH ×2 (09:12→20:41)
[2018-04-03] MEDS: FLUTICASONE NASAL SPRAY (FLONASE) 16 GM BTL NS SCH (09:13)
[2018-04-03] MEDS: LORATADINE (CLARITIN) 10 MG TAB PO SCH (09:14)
[2018-04-03] MEDS: inSUlin DETERMIR 1 UNIT/0.01 ML (LEVEMIR) CHARGE PER UNIT SQ SCH ×2 (09:15→20:40)
[2018-04-03] MEDS: LOSARTAN 25 MG (COZAAR) TAB PO SCH (09:26)
[2018-04-03] MEDS: CIPROFLOXACIN 0.3% (CILOXAN) 2.5 ML BTL OP SCH ×4 (09:30→20:46)
--- NOTE | 2018-04-03 09:49 | PM & R (SOAP) Progress Note ---
Subjective This was a face to face visit with the patient. Date Seen by Provider: Apr 03, 2018 Time Seen by Provider: 08:30 Subjective/Events-last exam Patient was seen in Gym this AM Strength and endurance improving.Patient with low BG this AM Will inform DR castillo re further adjustment in Insulin as needed see orders.Patient Mod assist for transfers.constipation improved having BMS Review of Systems Neurological: Weakness Objective Physician Exam Last Set of Vital Signs Vital Signs Date Time Temp Pulse Resp B/P (MAP) Pulse Ox O2 Delivery O2 Flow Rate FiO2 04/03/18 09:10 97.6 67 18 114/67 (83) 100 Room Air Capillary Refill : I&O Intake and Output 04/03/18 00:00 Intake Total 1140 ml Balance 1140 ml Intake Oral 1140 ml # Voids 6 # Bowel Movements 3 General: Alert, Cooperative, No Acute Distress HEENT: Atraumatic, PERRLA, EOMI, Mucous Memb Moist/[place], Other (Dysphagia dysarthria ) Neck: Supple, No JVD Lungs: Clear to Auscultation Heart: Normal S1, Normal S2, Other (Systolic murmur at the left sternal border) Abdomen: Normal Bowel Sounds, Soft, No Tenderness Extremities: No Clubbing, No Cyanosis, No Edema Skin: No Rashes, No Breakdown Neuro: Other (Left HP Upper more then lower ) Psych/Mental Status: Mental Status NL, Mood NL Results Lab Data Laboratory Tests 03/31/18 11:07: Glucometer 135H 03/31/18 16:54: Glucometer 207H 03/31/18 21:31: Glucometer 135H 04/01/18 06:31: Glucometer 81 04/01/18 11:00: Glucometer 192H 04/01/18 15:29: Glucometer 101 04/01/18 20:46: Glucometer 189H 04/02/18 06:15: Glucometer 100 04/02/18 11:03: Glucometer 188H 04/02/18 16:36: Glucometer 148H 04/02/18 20:36: Glucometer 185H 04/03/18 05:02: Glucometer 53*L 04/03/18 05:39: Glucometer 63L Assessment/Plan Assessment and Plan RT cva with left HP Dysarthria improving Dysphagia improving Atypical CP non recurrent Chronic A FIb Cardiology following CAD Insomnia improved with med DM with BG trending down PCP managing Constipation improved with meds Plan Continue PT/OT/ST F/U with PCP re insulin adjustment as needed Next Team Conference 8=22=18 Co-Morbidities that are continuing to impact the rehab process: (include details ) EMMY JULIEN MD Apr 03, 2018 09:49
--- NOTE | 2018-04-03 10:59 | Occupational Ther Daily Note ---
OT Current Status-Daily Note Subjective Pt sleeping in bed. Pt agrees to therapy. No c/o pain. Pt incontinent of bowel. Pt appears fatigued. Increase swelling in L hand. Mental Status/Objective Patient Orientation: Person, Place, Time, Situation Functional [place] Measure 0=Not Assessed/NA 4=Minimal Assistance 1=Total Assistance 5=Supervision or Setup 2=Maximal Assistance 6=Modified [place] 3=Moderate Assistance 7=Complete [place] ADL-Treatment SBA using bedrails and HOB raised to go from supine to sitting EOB. Mod A to transfer from bed to shower chair. Pt incontinent of bowel. Assist to doff lower body clothing. Pt completed bathing using shower chair with cutout, hand held shower, grabbars and long handle sponge. Assist for buttocks. Assist to dry buttocks and feet. Pt demonstrated increased fatigue that affected pt's ability to complete ADLs. Sitting at sink, pt able to complete own grooming. Verbal cues and min A to don shirt. Assist to thread feet through pant legs. Assist to stand, pt assisted to hike pants over hips then therapist finished. After therapy, pt lying in bed with call light/phone in reach. All needs met in room. Functional [place] Measure 0=Not Assessed/NA 4=Minimal Assistance 1=Total Assistance 5=Supervision or Setup 2=Maximal Assistance 6=Modified [place] 3=Moderate Assistance 7=Complete IndependenceIRFPAI Quality Coding Scale 6 Independent with activity with or without an assistive device 5 Patient requires set up or clean up by helper. Patient completes activity by themselves 4 Supervision or touching assist (CGA). [place] provide cues , steadying assist 3 The helper provides less than half the effort to complete the activity 2 The helper provides more than half the effort to complete the activity 1 Dependent. The helper does all the effort to complete an activity 7 Patient refused to complete or attempt activity 9 The patient did not perform the activity before the current illness or injury 88 Not attempted due to Medical conditions or safety concerns Grooming (FIM): 6 Oral Hygiene (QC): 6 Bathing (FIM): 3 Bathing Location: L Arm, R Arm, L Upper Leg, R Upper Leg, L Lower Leg ( including foot), R Lower Leg (including foot), Chest, Abdomen, Perineal Area Shower/Bathe Self (QC): 3 Upper Body (FIM): 4 Upper Body Dressing (QC): 3 Lower Body Dressing (FIM): 2 Lower Body Dressing (QC): 2 On/Off Footwear (QC): 2 Toileting (FIM): 1 Toileting Hygiene (QC): 1 Shower Transfer(FIM): 1 (Using rolling shower chair.) OT Short Term Goals Short Term Goals Time Frame: Apr 09, 2018 Eating(FIM): 6 Grooming(FIM): 5 Bathing(FIM): 4 Upper Body Dressing(FIM): 4 Lower Body Dressing(FIM): 3 Toileting(FIM): 4 Transfers (B,C,W/C) (FIM): 3 Toilet/Commode Transfer(FIM): 4 Shower Transfer(FIM): 4 Additional Short Term Goals: 1-Demonstrate ADL Tasks, 2-Verbalize Understanding , 3-ImproveStrength/Sukhdeep 1=Demonstrate adherence to instructed precautions during ADL tasks. 2=Patient will verbalize/demonstrate understanding of assistive devices/ modifications for ADL. 3=Patient will improve strength/tolerance for activity to enable patient to perform ADL's. OT Custodial Goals Pan Dumper Goals Time Frame: Apr 23, 2018 Eating (FIM): 6 Eating (QC): 6 Groomin Oral Hygiene (QC): 6 Bathing(FIM): 5 Shower/Bathe Self (QC): 5 Upper Body Dressing(FIM): 5 Upper Body Dressing (QC): 5 Lower Body Dressing(FIM): 5 Lower Body Dressing (QC): 5 On/Off Footwear (QC): 5 Toileting(FIM): 6 Toileting Hygiene (QC): 6 Transfers (B,C,W/C) (FIM): 6 Toilet/Commode Transfer(FIM): 6 Toilet/Commode Transfer (QC): 6 Shower Transfer(FIM): 5 Additional Goals: 1-Demonstrate ADL Tasks, 2-Verbalize Understanding, 3- ImproveStrength/Sukhdeep 1=Demonstrate adherence to instructed precautions during ADL tasks. 2=Patient will verbalize/demonstrate understanding of assistive devices/ modifications for ADL. 3=Patient will improve strength/tolerance for activity to enable patient to perform ADL's. OT Education/Plan Discharge Recommendations Plan/Recommendations: Continue POC Treatment Plan/Plan of Care Patient would benefit from OT for education, treatment and training to promote independence in ADL's, mobility, safety and/or upper extremity function for ADL' s. Plan of Care: ADL Retraining, Functional Mobility, Group Exercise/Act as Ind, UE Funct Exercise/Act Treatment Duration: Apr 23, 2018 Frequency: At least 5 of 7 days/Wk (IRF) Estimated Hrs Per Day: 1.5 hours per day Agreement: Yes Rehab Potential: Fair Time/GCodes Start Time: 10:00 Stop Time: 11:00 Total Time Billed (hr/min): 60 Billed Treatment Time 1 visit-ADL 4 (60 min) JIMMY DHILLON Apr 03, 2018 10:59
--- NOTE | 2018-04-03 14:24 | Therapy Group Daily Note ---
Therapy Daily Group Note Patient Education Topic Other List Below (Transfer safety and techniques) Exercises Sit to/from Stand (weight shifting and arm chair push ups), UE Exercise ( balloon volleyball) Other/Notes Pt. participated in group PT OT session this date. Pt. was quiet but did introduce himself and participated with some assistance. TRFs : car, bed and chair were demonstrated with some participants volunteering to trial each afterward. Pts. shared regarding their experiences TRFing. Pt. required mod to max assist of 2 for sit to stand TRF. Pts. also played balloon volleyball and enjoyed socializing. Pt. to bed after Rx with assistance and pena at hand Start Time: 13:30 Stop Time: 14:10 Total Billed Treatment Time: 40 Total Billed Treatment 1,GRP SARAH MAGALLON TELE MARKETING EXECUTIVE Apr 03, 2018 14:24
[2018-04-03 17:11] VITALS: BP 125/68
[2018-04-03] MEDS: ATORVASTATIN 40 MG (LIPITOR) TABLET PO SCH (20:41)
[2018-04-03] MEDS: POLYETHYLENE GLYCOL 17 GM (MIRALAX) PACK PO SCH (20:41)
[2018-04-03] MEDS: MELATONIN 3 MG TABLET PO SCH (20:41)
[2018-04-04] MEDS: NYSTATIN ORAL SUSP 5 ML UDC PO SCH ×5 (00:21→23:02)
[2018-04-04] MEDS: inSUlin ASPART (NovoLOG) 1 UNIT/0.01 ML (CHARGE PER UNIT) SC SCH ×4 (05:42→20:34)
[2018-04-04 06:14] VITALS: BP 111/57
--- NOTE | 2018-04-04 07:56 | PM & R (SOAP) Progress Note ---
Subjective This was a face to face visit with the patient. Date Seen by Provider: Apr 04, 2018 Time Seen by Provider: 08:05 Subjective/Events-last exam Patient was seen in his room this AM Patient Mod assist for transfers Current meds and labs reviewed.Patient having BMS and Sleeping better has very supportive family Review of Systems Neurological: Weakness Objective Physician Exam Last Set of Vital Signs Vital Signs Date Time Temp Pulse Resp B/P (MAP) Pulse Ox O2 Delivery O2 Flow Rate FiO2 04/04/18 06:14 98.2 63 16 111/57 (75) 93 Room Air Capillary Refill : I&O Intake and Output 04/04/18 00:00 Intake Total 910 ml Balance 910 ml Intake Oral 910 ml # Voids 4 # Bowel Movements 2 General: Alert, Cooperative, No Acute Distress HEENT: Atraumatic, PERRLA, EOMI, Mucous Memb Moist/[place], Other (Dysphagia dysarthria ) Neck: Supple, No JVD Lungs: Clear to Auscultation Heart: Normal S1, Normal S2, Other (Systolic murmur at the left sternal border) Abdomen: Normal Bowel Sounds, Soft, No Tenderness Extremities: No Clubbing, No Cyanosis, No Edema Skin: No Rashes, No Breakdown Neuro: Other (Left HP Upper more then lower ) Psych/Mental Status: Mental Status NL, Mood NL Results Lab Data Laboratory Tests 04/01/18 11:00: Glucometer 192H 04/01/18 15:29: Glucometer 101 04/01/18 20:46: Glucometer 189H 04/02/18 06:15: Glucometer 100 04/02/18 11:03: Glucometer 188H 04/02/18 16:36: Glucometer 148H 04/02/18 20:36: Glucometer 185H 04/03/18 05:02: Glucometer 53*L 04/03/18 05:39: Glucometer 63L 04/03/18 11:13: Glucometer 158H 04/03/18 15:57: Glucometer 198H 04/03/18 20:39: Glucometer 134H 04/04/18 05:17: Glucometer 74 Assessment/Plan Assessment and Plan RT CVa with left HP Dysarthria improving Dysphagia improving Atypical CP non recurrent Chronic A FIB controlled with med CAD Insomnia improved with med Constipation improved with med Plan Continue PT/OT/ST Next Team Conference 8-22-18 Co-Morbidities that are continuing to impact the rehab process: (include details ) EMMY JULIEN MD Apr 04, 2018 07:56
[2018-04-04] MEDS: APIXABAN 5 MG (ELIQUIS) TABLET PO SCH ×2 (09:52→20:33)
[2018-04-04] MEDS: SENNA W/DOCUSATE (SENOKOT S) TABLET PO SCH ×2 (09:52→20:31)
[2018-04-04] MEDS: LOSARTAN 25 MG (COZAAR) TAB PO SCH (09:52)
[2018-04-04] MEDS: FAMOTIDINE 20 MG (PEPCID) TABLET PO SCH ×2 (09:52→20:33)
[2018-04-04] MEDS: LORATADINE (CLARITIN) 10 MG TAB PO SCH (09:53)
[2018-04-04] MEDS: FLUTICASONE NASAL SPRAY (FLONASE) 16 GM BTL NS SCH (09:53)
[2018-04-04] MEDS: AMIODARONE 200 MG (CORDARONE) TAB PO SCH ×2 (09:53→20:35)
[2018-04-04] MEDS: CLOPIDOGREL 75 MG (PLAVIX) TABLET PO SCH (09:53)
[2018-04-04] MEDS: CIPROFLOXACIN 0.3% (CILOXAN) 2.5 ML BTL OP SCH ×4 (09:54→20:35)
[2018-04-04] MEDS: inSUlin DETERMIR 1 UNIT/0.01 ML (LEVEMIR) CHARGE PER UNIT SQ SCH ×2 (09:54→20:34)
--- NOTE | 2018-04-04 11:34 | Cardiology Progress Note ---
Subjective Date Seen by Provider: Apr 04, 2018 Time Seen by Provider: 11:33 Subjective/Events-last exam Patient is laying down in bed, feeling better. Denied any chest pain or shortness of breath. Denied any palpitation. Review of Systems General: No Chills, No Night Sweats, No Fatigue, No Malaise, No Appetite, No Other HEENT: No Head Aches, No Visual Changes, No Eye Pain, No Ear Pain, No Dysphasia , No Sinus Congestion, No Post Nasal Drip, No Sore Throat, No Other Pulmonary: No Dyspnea, No Cough, No Pleuritic Chest Pain, No Other Cardiovascular: No: Chest Pain, Palpitations, Orthopnea, Paroxysmal Noc. Dyspnea, Edema, Lt Headedness, Other Objective-Cardiology Exam Last Set of Vital Signs Vital Signs 04/04/18 06:14 Temp 98.2 Pulse 63 Resp 16 B/P (MAP) 111/57 (75) Pulse Ox 93 O2 Delivery Room Air Capillary Refill : I&O Intake and Output 04/04/18 00:00 Intake Total 910 ml Balance 910 ml Intake Oral 910 ml # Voids 4 # Bowel Movements 2 General: Alert, Cooperative, No Acute Distress HEENT: Atraumatic, PERRLA, EOMI, Mucous Memb Moist/[place], Other (Dysphagia dysarthria ) Neck: Supple, No JVD Lungs: Clear to Auscultation Heart: Normal S1, Normal S2, Other (Systolic murmur at the left sternal border) Abdomen: Normal Bowel Sounds, Soft, No Tenderness Extremities: No Clubbing, No Cyanosis, No Edema Skin: No Rashes, No Breakdown Neuro: Other (Left HP Upper more then lower ) Psych/Mental Status: Mental Status NL, Mood NL A/P-Cardiology Admission Diagnosis Chest pain CAD CVA Persistent atrial fibrillation Assessment/Plan Chest pain, nonspecific etiology. Resolved. Responded to PPI. Acute coronary syndrome ruled out with serial negative troponin and negative EKG. ASA was discontinued and started on Plavix. Continue to monitor CAD with history of CABG: Recent coronary angiography at [facility] showed patent grafts with distal disease not amendable to PCI. Medical therapy was recommended. Recurrent CVA/thromboembolic events, continue on Eliquis. Persistent atrial fibrillation on amiodarone and Eliquis. Also on diltiazem and beta sammie. Continue to monitor, at this time it appear that he started on Eliquis after his last stroke about a week ago. Continue to monitor, managed by Dr. House Ischemic cardiomyopathy, chronic left ventricular systolic dysfunction, congestive heart failure, compensated, ejection fraction 45-50 percent, start metoprolol and losartan and monitor her tolerance and response Mild to moderate Aortic stenosis- 2D Echo done 03/31/18 revealed mild to moderate , mod TR, MR. PA 60-65mmHg Pulmonary hypertension- PA 60-65 mmHg per 2D Echo done 03/31/18. Clinical Quality Measures DVT/VTE Risk/Contraindication: Risk Factor Score Per Nursin RFS Level Per Nursing on Admit: 4+=Very High TYRESE HENRIQUEZ MD Apr 04, 2018 11:34
--- NOTE | 2018-04-04 15:40 | Physical Therapy Daily Note ---
PT Daily Note-Current Subjective Pt fatigued on arrival, but requesting to start PT. Mental Status Patient Orientation: Person, Place, Situation Transfers Functional [place] Measure 0=Not Assessed/NA 4=Minimal Assistance 1=Total Assistance 5=Supervision or Setup 2=Maximal Assistance 6=Modified [place] 3=Moderate Assistance 7=Complete IndependenceIRFPAI Quality Coding Scale 6 Independent with activity with or without an assistive device 5 Patient requires set up or clean up by helper. Patient completes activity by themselves 4 Supervision or touching assist (CGA). [place] provide cues , steadying assist 3 The helper provides less than half the effort to complete the activity 2 The helper provides more than half the effort to complete the activity 1 Dependent. The helper does all the effort to complete an activity 7 Patient refused to complete or attempt activity 9 The patient did not perform the activity before the current illness or injury 88 Not attempted due to Medical conditions or safety concerns Transfers (B, C, W/C) (FIM): 2 Sit to/from Stand: 2 Gait Training Does the Patient Walk?: Yes Distance (FIM): 1=up to 49 ft Distance: 30ft Gait Level of Assist: 2 Gait Persons Needed: 1 Gait Assistive Device: Walker Rodolfo Initial 10 steps were fairly stable and safe. Quickly devolved into significant (L) lean with difficulty maintaining (L) knee extension during stance phase. Required max assist to maintain upright torso posture and avoid falling (L). Exercises Supine Ex: LE Protocol Supine Reps: 15 Pt was able to perform the (L) LE exercises without assistance. Assessment Good performance and control of (L) LE during exercises, but ambulation was very unstable and (L) LE strength dissipated rapidly. PT Short Term Goals Short Term Goals Time Frame: Apr 02, 2018 Transfers (B,C,W/C) (FIM): 3 Gait (FIM): 1 Gait Distance Comment: 20' Gait Level of Assist: 2 Gait Assistive Device: Cane Large Base Quad Wheelchair Distance: 150'x2 PT Chcf Goals Educational Technology Specialist Goals PT Chcf Goals Time Frame: Apr 16, 2018 Transfers (B,C,W/C) (FIM): 4 Sit to Lying (QC): 3 Lying-Sitting on Side/Bed(QC): 3 Sit to Stand (QC): 3 Rollin Roll Left to Right (QC): 3 Chair/Zgn-rj-[place] Xfer(QC): 3 Car Transfer (QC): 3 Gait (FIM): 2 Distance: 50' Walk 10 feet (QC): 3 Walk 10ft-Uneven Surface(QC): 3 Walk 50ft with 2 Turns (QC): 3 Gait Level of Assist: 4 Gait Assistive Device: Cane Large Base Quad Wheelchair (FIM): 6 Distance: 200' Wheel 50 feet with 2 turns (QC: 6 PT Plan Treatment/Plan Treatment Plan: Continue Plan of Care Treatment Plan: Bed Mobility, Concurrent Therapy, Education, Functional Activity Sukhdeep, Functional Strength, Group Therapy, Gait, Safety, Therapeutic Exercise, Transfers Treatment Duration: Apr 16, 2018 Frequency: At least 5 of 7 days/Wk (IRF) Estimated Hrs Per Day: 1.5 hours per day Patient and/or Family Agrees t: Yes Time/GCodes Time In: 1037 Time Out: 1103 Total Billed Treatment Time: 26 Total Billed Treatment 1, ex 15, gt 11 REYES BRICE PT Apr 04, 2018 15:40
[2018-04-04 16:07] VITALS: BP 145/69
[2018-04-04] MEDS: POLYETHYLENE GLYCOL 17 GM (MIRALAX) PACK PO SCH (20:31)
[2018-04-04] MEDS: ATORVASTATIN 40 MG (LIPITOR) TABLET PO SCH (20:33)
[2018-04-04] MEDS: MELATONIN 3 MG TABLET PO SCH (20:33)
[2018-04-05] MEDS: inSUlin ASPART (NovoLOG) 1 UNIT/0.01 ML (CHARGE PER UNIT) SC SCH ×4 (05:02→21:35)
[2018-04-05] MEDS: NYSTATIN ORAL SUSP 5 ML UDC PO SCH ×3 (05:04→17:35)
[2018-04-05 05:26] VITALS: BP 107/63
[2018-04-05] MEDS: CIPROFLOXACIN 0.3% (CILOXAN) 2.5 ML BTL OP SCH ×4 (09:57→21:36)
[2018-04-05] MEDS: CLOPIDOGREL 75 MG (PLAVIX) TABLET PO SCH (09:58)
[2018-04-05] MEDS: APIXABAN 5 MG (ELIQUIS) TABLET PO SCH ×2 (09:58→20:57)
[2018-04-05] MEDS: LOSARTAN 25 MG (COZAAR) TAB PO SCH (09:58)
[2018-04-05] MEDS: FAMOTIDINE 20 MG (PEPCID) TABLET PO SCH ×2 (09:58→20:56)
[2018-04-05] MEDS: AMIODARONE 200 MG (CORDARONE) TAB PO SCH ×2 (09:58→20:57)
[2018-04-05] MEDS: inSUlin DETERMIR 1 UNIT/0.01 ML (LEVEMIR) CHARGE PER UNIT SQ SCH ×2 (10:02→21:07)
[2018-04-05] MEDS: FLUTICASONE NASAL SPRAY (FLONASE) 16 GM BTL NS SCH (10:03)
[2018-04-05] MEDS: LORATADINE (CLARITIN) 10 MG TAB PO SCH (10:03)
[2018-04-05] MEDS: SENNA W/DOCUSATE (SENOKOT S) TABLET PO SCH ×3 (10:05→20:57)
--- NOTE | 2018-04-05 12:04 | Cardiology Progress Note ---
Subjective Date Seen by Provider: Apr 05, 2018 Time Seen by Provider: 12:03 Subjective/Events-last exam Patient is laying down in bed, feeling better, no chest pain Review of Systems General: No Chills, No Night Sweats, No Fatigue, No Malaise, No Appetite, No Other HEENT: No Head Aches, No Visual Changes, No Eye Pain, No Ear Pain, No Dysphasia , No Sinus Congestion, No Post Nasal Drip, No Sore Throat, No Other Pulmonary: No Dyspnea, No Cough, No Pleuritic Chest Pain, No Other Cardiovascular: No: Chest Pain, Palpitations, Orthopnea, Paroxysmal Noc. Dyspnea, Edema, Lt Headedness, Other Objective-Cardiology Exam Last Set of Vital Signs Vital Signs 04/05/18 05:26 Temp 97.6 Pulse 61 Resp 16 B/P (MAP) 107/63 (78) Pulse Ox 98 O2 Delivery Room Air Capillary Refill : I&O Intake and Output 04/05/18 00:00 Intake Total 1340 ml Output Total 550 ml Balance 790 ml Intake Oral 1340 ml Output Urine Total 550 ml # Voids 5 # Bowel Movements 2 General: Alert, Cooperative, No Acute Distress HEENT: Atraumatic, PERRLA, EOMI, Mucous Memb Moist/[place], Other (Dysphagia dysarthria ) Neck: Supple, No JVD Lungs: Clear to Auscultation Heart: Normal S1, Normal S2, Other (Systolic murmur at the left sternal border) Abdomen: Normal Bowel Sounds, Soft, No Tenderness Extremities: No Clubbing, No Cyanosis, No Edema Skin: No Rashes, No Breakdown Neuro: Other (Left HP Upper more then lower ) Psych/Mental Status: Mental Status NL, Mood NL A/P-Cardiology Admission Diagnosis Chest pain CAD CVA Persistent atrial fibrillation Assessment/Plan Chest pain, nonspecific etiology. Resolved. Responded to PPI. Acute coronary syndrome ruled out with serial negative troponin and negative EKG. ASA was discontinued and started on Plavix. Continue to monitor CAD with history of CABG: Recent coronary angiography at [facility] showed patent grafts with distal disease not amendable to PCI. Medical therapy was recommended. Recurrent CVA/thromboembolic events, continue on Eliquis. Persistent atrial fibrillation on amiodarone and Eliquis. Also on diltiazem and beta sammie. Continue to monitor, at this time it appear that he started on Eliquis after his last stroke about a week ago. Continue to monitor, managed by Dr. House Ischemic cardiomyopathy, chronic left ventricular systolic dysfunction, congestive heart failure, compensated, ejection fraction 45-50 percent, start metoprolol and losartan and monitor her tolerance and response Mild to moderate Aortic stenosis- 2D Echo done 03/31/18 revealed mild to moderate , mod TR, MR. PA 60-65mmHg Pulmonary hypertension- PA 60-65 mmHg per 2D Echo done 03/31/18. Clinical Quality Measures DVT/VTE Risk/Contraindication: Risk Factor Score Per Nursin RFS Level Per Nursing on Admit: 4+=Very High TYRESE HENRIQUEZ MD Apr 05, 2018 12:04
[2018-04-05 17:15] VITALS: BP 121/63
[2018-04-05] MEDS: ATORVASTATIN 40 MG (LIPITOR) TABLET PO SCH (20:56)
[2018-04-05] MEDS: POLYETHYLENE GLYCOL 17 GM (MIRALAX) PACK PO SCH (20:56)
[2018-04-05] MEDS: MELATONIN 3 MG TABLET PO SCH (20:57)
[2018-04-06] MEDS: NYSTATIN ORAL SUSP 5 ML UDC PO SCH ×4 (00:56→17:57)
[2018-04-06 06:00] VITALS: BP 105/48
[2018-04-06] MEDS: inSUlin ASPART (NovoLOG) 1 UNIT/0.01 ML (CHARGE PER UNIT) SC SCH ×4 (06:47→21:23)
[2018-04-06 06:54] LABS: HEMOGLOBIN 10.5 G/DL (13.3-17.7); MEAN PLATELET VOLUME 10.5 FL (7.4-10.4); RED BLOOD COUNT 3.81 10^6/uL (4.35-5.85); RED CELL DISTRIBUTION WIDTH 16.2 % (10.0-14.5); WHITE BLOOD COUNT 9.4 10^3/uL (4.3-11.0)
[2018-04-06 07:33] LABS: ALBUMIN 3.1 GM/DL (3.2-4.5); CALCIUM 8.8 MG/DL (8.5-10.1); CREATININE SERUM 1.18 MG/DL (0.60-1.30); POTASSIUM 4.5 MMOL/L (3.6-5.0)
[2018-04-06] MEDS: CLOPIDOGREL 75 MG (PLAVIX) TABLET PO SCH (08:28)
[2018-04-06] MEDS: LORATADINE (CLARITIN) 10 MG TAB PO SCH (08:28)
[2018-04-06] MEDS: APIXABAN 5 MG (ELIQUIS) TABLET PO SCH ×2 (08:28→20:42)
[2018-04-06] MEDS: FAMOTIDINE 20 MG (PEPCID) TABLET PO SCH ×2 (08:28→20:43)
[2018-04-06] MEDS: SENNA W/DOCUSATE (SENOKOT S) TABLET PO SCH ×2 (08:32→20:43)
[2018-04-06] MEDS: LOSARTAN 25 MG (COZAAR) TAB PO SCH (08:33)
[2018-04-06] MEDS: AMIODARONE 200 MG (CORDARONE) TAB PO SCH ×2 (08:33→20:42)
[2018-04-06] MEDS: CIPROFLOXACIN 0.3% (CILOXAN) 2.5 ML BTL OP SCH ×4 (08:34→20:43)
[2018-04-06] MEDS: FLUTICASONE NASAL SPRAY (FLONASE) 16 GM BTL NS SCH (08:34)
[2018-04-06] MEDS: inSUlin DETERMIR 1 UNIT/0.01 ML (LEVEMIR) CHARGE PER UNIT SQ SCH ×2 (08:34→21:23)
--- NOTE | 2018-04-06 08:55 | Cardiology Progress Note ---
Subjective Date Seen by Provider: Apr 06, 2018 Time Seen by Provider: 08:53 Subjective/Events-last exam Patient is sitting up in bed, eating breakfast. Denies any CP or dyspnea. Objective-Cardiology Exam Last Set of Vital Signs Vital Signs 04/06/18 06:00 Temp 97.8 Pulse 97 Resp 16 B/P (MAP) 105/48 (67) Pulse Ox 97 O2 Delivery Room Air Capillary Refill : I&O Intake and Output 04/06/18 00:00 Intake Total 2280 ml Balance 2280 ml Intake Oral 2280 ml # Voids 10 # Bowel Movements 6 General: Alert, Cooperative, No Acute Distress HEENT: Atraumatic, PERRLA, EOMI, Mucous Memb Moist/[place], Other (Dysphagia dysarthria ) Neck: Supple, No JVD Lungs: Clear to Auscultation Heart: Normal S1, Normal S2, Other (Systolic murmur at the left sternal border) Abdomen: Normal Bowel Sounds, Soft, No Tenderness Extremities: No Clubbing, No Cyanosis, No Edema Skin: No Rashes, No Breakdown Neuro: Other (Left HP Upper more then lower ) Psych/Mental Status: Mental Status NL, Mood NL Results Lab Laboratory Tests 04/06/18 06:11 A/P-Cardiology Admission Diagnosis Chest pain CAD CVA Persistent atrial fibrillation Assessment/Plan Chest pain, nonspecific etiology. Resolved. Responded to PPI. Acute coronary syndrome ruled out with serial negative troponin and negative EKG. ASA was discontinued and started on Plavix. Continue to monitor CAD with history of CABG: Recent coronary angiography at [facility] showed patent grafts with distal disease not amendable to PCI. Medical therapy was recommended. Recurrent CVA/thromboembolic events, continue on Eliquis. Persistent atrial fibrillation on amiodarone and Eliquis. Also on diltiazem and beta sammie. Continue to monitor, at this time it appear that he started on Eliquis after his last stroke about a week ago. Continue to monitor, managed by Dr. House Ischemic cardiomyopathy, chronic left ventricular systolic dysfunction, congestive heart failure, compensated, ejection fraction 45-50 percent, start metoprolol and losartan and monitor her tolerance and response Mild to moderate Aortic stenosis- 2D Echo done 03/31/18 revealed mild to moderate , mod TR, MR. PA 60-65mmHg Pulmonary hypertension- PA 60-65 mmHg per 2D Echo done 03/31/18. Clinical Quality Measures DVT/VTE Risk/Contraindication: Risk Factor Score Per Nursin RFS Level Per Nursing on Admit: 4+=Very High LB MARTÍNEZ Apr 06, 2018 08:55
--- NOTE | 2018-04-06 10:08 | Occupational Ther Daily Note ---
OT Current Status-Daily Note Subjective Pt alert, lying in bed. Pt's present in room. Pt agrees to therapy. No c /o pain. Mental Status/Objective Patient Orientation: Person, Place, Time, Situation Functional [place] Measure 0=Not Assessed/NA 4=Minimal Assistance 1=Total Assistance 5=Supervision or Setup 2=Maximal Assistance 6=Modified [place] 3=Moderate Assistance 7=Complete [place] ADL-Treatment With HOB raised, pt able to go from supine to sitting with SBA and verbal cues. Mod A for SPT to rolling shower chair. Pt incontinent of bowel and bladder. Pt was able to hold urinal in place sitting on shower chair with cutout. Sitting in front of sink, pt was able to complete shaving with setup. Brushing teeth and hair pt able to complete by self. Using rolling shower chair with cutout, hand held shower and grabbars pt able to complete all bathing except R upper arm. Assist to dry buttocks and R upper arm. Completed upper body dressing by self after set up. Min A to don/doff over feet then assists to hike pants over R hip with assist to stand and hike over L hip. After therapy, pt sitting in w/c with call light in reach. Nrsg present in room. Functional [place] Measure 0=Not Assessed/NA 4=Minimal Assistance 1=Total Assistance 5=Supervision or Setup 2=Maximal Assistance 6=Modified [place] 3=Moderate Assistance 7=Complete IndependenceIRFPAI Quality Coding Scale 6 Independent with activity with or without an assistive device 5 Patient requires set up or clean up by helper. Patient completes activity by themselves 4 Supervision or touching assist (CGA). [place] provide cues , steadying assist 3 The helper provides less than half the effort to complete the activity 2 The helper provides more than half the effort to complete the activity 1 Dependent. The helper does all the effort to complete an activity 7 Patient refused to complete or attempt activity 9 The patient did not perform the activity before the current illness or injury 88 Not attempted due to Medical conditions or safety concerns Grooming (FIM): 5 Oral Hygiene (QC): 6 Bathing (FIM): 4 Bathing Location: L Arm, R Arm, L Upper Leg, R Upper Leg, L Lower Leg ( including foot), R Lower Leg (including foot), Chest, Abdomen, Buttocks, Perineal Area Shower/Bathe Self (QC): 3 Upper Body (FIM): 5 Upper Body Dressing (QC): 4 Lower Body Dressing (FIM): 2 Lower Body Dressing (QC): 2 On/Off Footwear (QC): 2 Toileting (FIM): 1 (Pt is able to complete hygiene sitting on shower chair with cutout.) Toileting Hygiene (QC): 1 Transfers (B, C, W/C) (FIM): 3 Toilet/Commode Transfer (FIM): 3 Toilet Transfer (QC): 3 Shower Transfer(FIM): 1 (Using rolling shower chair with cutout.) OT Short Term Goals Short Term Goals Time Frame: Apr 09, 2018 Eating(FIM): 6 Grooming(FIM): 5 Bathing(FIM): 4 Upper Body Dressing(FIM): 4 Lower Body Dressing(FIM): 3 Toileting(FIM): 4 Transfers (B,C,W/C) (FIM): 3 Toilet/Commode Transfer(FIM): 4 Shower Transfer(FIM): 4 Additional Short Term Goals: 1-Demonstrate ADL Tasks, 2-Verbalize Understanding , 3-ImproveStrength/Sukhdeep 1=Demonstrate adherence to instructed precautions during ADL tasks. 2=Patient will verbalize/demonstrate understanding of assistive devices/ modifications for ADL. 3=Patient will improve strength/tolerance for activity to enable patient to perform ADL's. OT Chcf Goals Chcf Goals Time Frame: Apr 23, 2018 Eating (FIM): 6 Eating (QC): 6 Groomin Oral Hygiene (QC): 6 Bathing(FIM): 5 Shower/Bathe Self (QC): 5 Upper Body Dressing(FIM): 5 Upper Body Dressing (QC): 5 Lower Body Dressing(FIM): 5 Lower Body Dressing (QC): 5 On/Off Footwear (QC): 5 Toileting(FIM): 6 Toileting Hygiene (QC): 6 Transfers (B,C,W/C) (FIM): 6 Toilet/Commode Transfer(FIM): 6 Toilet/Commode Transfer (QC): 6 Shower Transfer(FIM): 5 Additional Goals: 1-Demonstrate ADL Tasks, 2-Verbalize Understanding, 3- ImproveStrength/Sukhdeep 1=Demonstrate adherence to instructed precautions during ADL tasks. 2=Patient will verbalize/demonstrate understanding of assistive devices/ modifications for ADL. 3=Patient will improve strength/tolerance for activity to enable patient to perform ADL's. OT Education/Plan Discharge Recommendations Plan/Recommendations: Continue POC Treatment Plan/Plan of Care Patient would benefit from OT for education, treatment and training to promote independence in ADL's, mobility, safety and/or upper extremity function for ADL' s. Plan of Care: ADL Retraining, Functional Mobility, Group Exercise/Act as Ind, UE Funct Exercise/Act Treatment Duration: Apr 23, 2018 Frequency: At least 5 of 7 days/Wk (IRF) Estimated Hrs Per Day: 1.5 hours per day Agreement: Yes Rehab Potential: Fair Time/GCodes Start Time: 08:50 Stop Time: 10:08 Total Time Billed (hr/min): 78 Billed Treatment Time 1 visit-ADL 5 (78 min) JIMMY DHILLON Apr 06, 2018 10:08
--- NOTE | 2018-04-06 11:47 | Physical Therapy Daily Note ---
PT Daily Note-Current Subjective Patient in wheelchair pre tx, agrees to PT, no complaints of pain. Appearance Patient BTB post tx with nurse call, phone, tray, all needs met. Mental Status Patient Orientation: Person, Place, Situation Transfers Functional [place] Measure 0=Not Assessed/NA 4=Minimal Assistance 1=Total Assistance 5=Supervision or Setup 2=Maximal Assistance 6=Modified [place] 3=Moderate Assistance 7=Complete IndependenceIRFPAI Quality Coding Scale 6 Independent with activity with or without an assistive device 5 Patient requires set up or clean up by helper. Patient completes activity by themselves 4 Supervision or touching assist (CGA). [place] provide cues , steadying assist 3 The helper provides less than half the effort to complete the activity 2 The helper provides more than half the effort to complete the activity 1 Dependent. The helper does all the effort to complete an activity 7 Patient refused to complete or attempt activity 9 The patient did not perform the activity before the current illness or injury 88 Not attempted due to Medical conditions or safety concerns Transfers (B, C, W/C) (FIM): 3 Sit to/from Stand: 3 Bed to/from Chair: 3 Patient performed 8 modified stand pivot transfers only to the right side for now with mod assist. He needs cues for positioning and safety. Tends to lean to the left side and has a hard time bearing all his weight on the right side due to weakness. Gait Training Gait (FIM): 2 Distance: 50'x3 Gait Level of Assist: 3 Gait Persons Needed: 1 Gait Assistive Device: Walker Rodolfo Patient needs assist with balance and weight shifting, cues for foot placement and step length. Wheelchair Training Wheelchair (FIM): 5 Distance: 150'x2 Type of Wheelchair: Manual Exercises Supine Ex: Bridging, Ankle pumps, Heel Slides, Straight leg raise, Hip abd/add Supine Reps: 20 SLR, Hip abd/add, heel slides, ankle pumps, 2x10, Pt cued on controlling eccentric aspect of heel slides and SLR, Bridging 2x10, pt needs Johan to keep feet in place and reduce L hip abductio/ER PT Short Term Goals Short Term Goals Time Frame: Apr 02, 2018 Transfers (B,C,W/C) (FIM): 3 Gait (FIM): 1 Gait Distance Comment: 20' Gait Level of Assist: 2 Gait Assistive Device: Cane Large Base Quad Wheelchair Distance: 150'x2 PT Group Home Goals Smoking Pipe Mounter Goals PT Group Home Goals Time Frame: Apr 16, 2018 Transfers (B,C,W/C) (FIM): 4 Sit to Lying (QC): 3 Lying-Sitting on Side/Bed(QC): 3 Sit to Stand (QC): 3 Rollin Roll Left to Right (QC): 3 Chair/Iiz-qm-Rfcrs Xfer(QC): 3 Car Transfer (QC): 3 Gait (FIM): 2 Distance: 50' Walk 10 feet (QC): 3 Walk 10ft-Uneven Surface(QC): 3 Walk 50ft with 2 Turns (QC): 3 Gait Level of Assist: 4 Gait Assistive Device: Cane Large Base Quad Wheelchair (FIM): 6 Distance: 200' Wheel 50 feet with 2 turns (QC: 6 PT Plan Problem List Problem List: Activity Tolerance, Functional Strength, Safety, Balance, Gait, Transfer, Bed Mobility, ROM Treatment/Plan Treatment Plan: Continue Plan of Care Treatment Plan: Bed Mobility, Concurrent Therapy, Education, Functional Activity Sukhdeep, Functional Strength, Group Therapy, Gait, Safety, Therapeutic Exercise, Transfers Treatment Duration: Apr 16, 2018 Frequency: At least 5 of 7 days/Wk (IRF) Estimated Hrs Per Day: 1.5 hours per day Patient and/or Family Agrees t: Yes Safety Risks/Education Patient Education: Gait Training, Transfer Techniques, Correct Positioning, W/ C Management, Safety Issues Teaching Recipient: Patient Teaching Methods: Demonstration, Discussion Response to Teaching: Reinforcement Needed Time/GCodes Time In: 1100 Time Out: 1200 Total Billed Treatment Time: 60 Total Billed Treatment 1 visit GT 20' FA 15' EX 25' CAMMY BLACK PT Apr 06, 2018 11:47
--- NOTE | 2018-04-06 14:52 | Physical Therapy Daily Note ---
PT Daily Note-Current Subjective Pt in bed pre tx, agrees to PT. Feels good and ready to work Appearance Pt in bed post tx w/ call light, phone, tray, all needs met. Mental Status Patient Orientation: Person, Place, Time Transfers Functional [place] Measure 0=Not Assessed/NA 4=Minimal Assistance 1=Total Assistance 5=Supervision or Setup 2=Maximal Assistance 6=Modified [place] 3=Moderate Assistance 7=Complete IndependenceIRFPAI Quality Coding Scale 6 Independent with activity with or without an assistive device 5 Patient requires set up or clean up by helper. Patient completes activity by themselves 4 Supervision or touching assist (CGA). [place] provide cues , steadying assist 3 The helper provides less than half the effort to complete the activity 2 The helper provides more than half the effort to complete the activity 1 Dependent. The helper does all the effort to complete an activity 7 Patient refused to complete or attempt activity 9 The patient did not perform the activity before the current illness or injury 88 Not attempted due to Medical conditions or safety concerns Transfers (B, C, W/C) (FIM): 2 Scootin Rollin Supine to/from Sit: 2 Sit to/from Stand: 2 Bed to/from Chair: 2 Pt requires cues most of the time for hand placement during sit <-> stand and chair<->bed transfers Wheelchair Training Does the Pt Use a Wheelchair?: Yes Wheelchair (FIM): 3 Distance: 150' Wheelchair Level of Assist: 5 Type of Wheelchair: Manual Pt able to use w/c to/from gym w/ SBA Exercises NuStep Minutes: 15 NuStep Workload: 3 Treatments w/c training, transfers, functional endurance/strength Assessment Current Status: Fair Progress improved endurance and LLE coordination PT Short Term Goals Short Term Goals Time Frame: Apr 02, 2018 Transfers (B,C,W/C) (FIM): 3 Gait (FIM): 1 Gait Distance Comment: 20' Gait Level of Assist: 2 Gait Assistive Device: Cane Large Base Quad Wheelchair Distance: 150'x2 PT Usp Goals Moving Picture Operator Goals PT Usp Goals Time Frame: Apr 16, 2018 Transfers (B,C,W/C) (FIM): 4 Sit to Lying (QC): 3 Lying-Sitting on Side/Bed(QC): 3 Sit to Stand (QC): 3 Rollin Roll Left to Right (QC): 3 Chair/Idq-qv-Ynrcf Xfer(QC): 3 Car Transfer (QC): 3 Gait (FIM): 2 Distance: 50' Walk 10 feet (QC): 3 Walk 10ft-Uneven Surface(QC): 3 Walk 50ft with 2 Turns (QC): 3 Gait Level of Assist: 4 Gait Assistive Device: Cane Large Base Quad Wheelchair (FIM): 6 Distance: 200' Wheel 50 feet with 2 turns (QC: 6 PT Plan Problem List Problem List: Activity Tolerance, Functional Strength, Safety, Balance, Gait, Transfer, Bed Mobility, ROM Treatment/Plan Treatment Plan: Continue Plan of Care Treatment Plan: Bed Mobility, Concurrent Therapy, Education, Functional Activity Sukhdeep, Functional Strength, Group Therapy, Gait, Safety, Therapeutic Exercise, Transfers Treatment Duration: Apr 16, 2018 Frequency: At least 5 of 7 days/Wk (IRF) Estimated Hrs Per Day: 1.5 hours per day Patient and/or Family Agrees t: Yes Safety Risks/Education Patient Education: Gait Training, Correct Positioning, Safety Issues Teaching Recipient: Patient Teaching Methods: Demonstration, Discussion Time/GCodes Time In: 1330 Time Out: 1400 Total Billed Treatment Time: 30 Total Billed Treatment 1 visit [facility] 10' EX 20' JIMMY MOURA PT Apr 06, 2018 14:52
--- NOTE | 2018-04-06 15:41 | Speech Therapy Daily Note ---
Speech Daily Progress Note Subjective Date Seen by Provider: Apr 06, 2018 Time Seen by Provider: 14:30 Pt in bed. Appeared fatigued. Pain Numeric Pain Scale: 0-No Pain Objective Pt fatigued but participate in tx. He performed his dysphagia exercises with min assist. Assessment Assessment Current Status: Fair Progress Treatment Plan Continue Plan of Care Communication Comprehension: 6 Expression: 7 Social Cognition Social Interaction: 7 Problem Solvin Memory: 7 Speech Short Term Goals Short Term Goals Short Term Goals Pt will complete Oral Motor Exercises with min assist. Time Frame-ST week Speech Jail Goals Jail Goals Pt will tolerate regular diet with thin liquids with no s/s of aspiration. Time Frame: 3 weeks Speech-Plan Patient/Family Goals Patient/Family Goals: drink thin liquids again. Treatment Plan Speech Therapy Treatment Plan: Continue Plan of Care pt is appearing fatigued quite often now. However, he is very motivated and participates though he is tired. Treatment Duration: Mar 26, 2018 Frequency: 5 times per week Estimated Hrs Per Day: .5 hour per day Rehab Potential: Fair Pt/Family Agrees to Plan: Yes Safety Risks/Education Teaching Methods: Discussion Response to Teaching: Verbalize Understanding Time Speech Therapy Time In: 14:30 Speech Therapy Time Out: 15:00 Total Billed Time: 30 Billed Treatment Time 1, DYST No MAGALY GARAY Apr 06, 2018 15:41
--- NOTE | 2018-04-06 16:22 | PM & R (SOAP) Progress Note ---
Subjective This was a face to face visit with the patient. Date Seen by Provider: Apr 06, 2018 Time Seen by Provider: 12:30 Subjective/Events-last exam Patient was seen in HIS ROOM THIS aFTERNNON sPOUSE HELPING WITH FEEDING MODIFIED DIET pt/[place] st CONTINUES dR Reveles HAS ADJUSTED iNSULIN FOR dm.pATIENT mOD ASSIST FOR TRANSFERS Review of Systems HEENT: Other (DYSPHAGIA) Neurological: Weakness Objective Physician Exam Last Set of Vital Signs Vital Signs Date Time Temp Pulse Resp B/P (MAP) Pulse Ox O2 Delivery O2 Flow Rate FiO2 04/06/18 09:00 Room Air 04/06/18 06:00 97.8 97 16 105/48 (67) 97 Capillary Refill : I&O Intake and Output 04/06/18 00:00 Intake Total 2280 ml Balance 2280 ml Intake Oral 2280 ml # Voids 10 # Bowel Movements 6 General: Alert, Cooperative, No Acute Distress HEENT: Atraumatic, PERRLA, EOMI, Mucous Memb Moist/[place], Other (Dysphagia dysarthria ) Neck: Supple, No JVD Lungs: Clear to Auscultation Heart: Normal S1, Normal S2, Other (Systolic murmur at the left sternal border) Abdomen: Normal Bowel Sounds, Soft, No Tenderness Extremities: No Clubbing, No Cyanosis, No Edema Skin: No Rashes, No Breakdown Neuro: Other (Left HP Upper more then lower ) Psych/Mental Status: Mental Status NL, Mood NL Results Lab Data Laboratory Tests 04/03/18 20:39: Glucometer 134H 04/04/18 05:17: Glucometer 74 04/04/18 10:54: Glucometer 101 04/04/18 16:04: Glucometer 157H 04/04/18 20:26: Glucometer 211H 04/05/18 04:26: Glucometer 51*L 04/05/18 04:36: Glucometer 47*L 04/05/18 04:41: Glucometer 52*L 04/05/18 04:50: Glucometer 61L 04/05/18 04:57: Glucometer 75 04/05/18 06:26: Glucometer 185H 04/05/18 11:14: Glucometer 225H 04/05/18 17:28: Glucometer 290H 04/05/18 21:03: Glucometer 247H 8/20/18 06:11: White Blood Count 9.4, Red Blood Count 3.81L, Hemoglobin 10.5L, Hematocrit 32L, Mean Corpuscular Volume 85, Mean Corpuscular Hemoglobin 28, Mean Corpuscular Hemoglobin Concent 33, Red Cell Distribution Width 16.2H, Platelet Count 349, Mean Platelet Volume 10.5H, Sodium Level 140, Potassium Level 4.5, Chloride Level 106, Carbon Dioxide Level 28, Anion Gap 6, Blood Urea Nitrogen 25H, Creatinine 1.18, Estimat Glomerular Filtration Rate 60, BUN/Creatinine Ratio 21 , Glucose Level 129H, Calcium Level 8.8, Corrected Calcium 9.5, Total Bilirubin 1.0, Aspartate Amino Transf (AST/SGOT) 18, Alanine Aminotransferase (ALT/SGPT) 16, Alkaline Phosphatase 40, Total Protein 6.0L, Albumin 3.1L 04/06/18 06:25: Glucometer 127H 04/06/18 11:10: Glucometer 189H 04/06/18 16:02: Glucometer 136H Assessment/Plan Assessment and Plan 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
[2018-04-06 18:00] VITALS: BP 146/70
[2018-04-06] MEDS: MELATONIN 3 MG TABLET PO SCH (20:42)
[2018-04-06] MEDS: ATORVASTATIN 40 MG (LIPITOR) TABLET PO SCH (20:42)
[2018-04-06] MEDS: POLYETHYLENE GLYCOL 17 GM (MIRALAX) PACK PO SCH (20:43)
[2018-04-07] MEDS: NYSTATIN ORAL SUSP 5 ML UDC PO SCH ×2 (00:54→06:24)
[2018-04-07] MEDS: inSUlin ASPART (NovoLOG) 1 UNIT/0.01 ML (CHARGE PER UNIT) SC SCH ×4 (05:34→20:52)
[2018-04-07 05:47] VITALS: BP 108/59
--- NOTE | 2018-04-07 08:28 | Cardiology Progress Note ---
Subjective Date Seen by Provider: Apr 07, 2018 Time Seen by Provider: 08:28 Subjective/Events-last exam No new complaints. Denies CP or dyspnea. Objective-Cardiology Exam Last Set of Vital Signs Vital Signs 04/07/18 05:47 Temp 98.4 Pulse 58 Resp 16 B/P (MAP) 108/59 (75) Pulse Ox 93 O2 Delivery Room Air Capillary Refill : I&O Intake and Output 04/07/18 00:00 Intake Total 490 ml Output Total 200 ml Balance 290 ml Intake Oral 490 ml Output Urine Total 200 ml # Voids 4 # Bowel Movements 1 General: Alert, Cooperative, No Acute Distress HEENT: Atraumatic, PERRLA, EOMI, Mucous Memb Moist/[place], Other (Dysphagia dysarthria ) Neck: Supple, No JVD Lungs: Clear to Auscultation Heart: Normal S1, Normal S2, Other (Systolic murmur at the left sternal border) Abdomen: Normal Bowel Sounds, Soft, No Tenderness Extremities: No Clubbing, No Cyanosis, No Edema Skin: No Rashes, No Breakdown Neuro: Other (Left HP Upper more then lower ) Psych/Mental Status: Mental Status NL, Mood NL A/P-Cardiology Admission Diagnosis Chest pain CAD CVA Persistent atrial fibrillation Assessment/Plan Chest pain, nonspecific etiology. Resolved. Responded to PPI. Acute coronary syndrome ruled out with serial negative troponin and negative EKG. ASA was discontinued and started on Plavix. Continue to monitor CAD with history of CABG: Recent coronary angiography at [facility] showed patent grafts with distal disease not amendable to PCI. Medical therapy was recommended. Recurrent CVA/thromboembolic events, continue on Eliquis. Persistent atrial fibrillation on amiodarone and Eliquis. Also on diltiazem and beta sammie. Continue to monitor, at this time it appear that he started on Eliquis after his last stroke about a week ago. Continue to monitor, managed by Dr. House Ischemic cardiomyopathy, chronic left ventricular systolic dysfunction, congestive heart failure, compensated, ejection fraction 45-50 percent, start metoprolol and losartan and monitor her tolerance and response Mild to moderate Aortic stenosis- 2D Echo done 03/31/18 revealed mild to moderate , mod TR, MR. PA 60-65mmHg Pulmonary hypertension- PA 60-65 mmHg per 2D Echo done 03/31/18. Depression- management per medical services. Clinical Quality Measures DVT/VTE Risk/Contraindication: Risk Factor Score Per Nursin RFS Level Per Nursing on Admit: 4+=Very High LB MARTÍNEZ Apr 07, 2018 08:28
[2018-04-07] MEDS: FLUTICASONE NASAL SPRAY (FLONASE) 16 GM BTL NS SCH (08:36)
[2018-04-07] MEDS: APIXABAN 5 MG (ELIQUIS) TABLET PO SCH ×2 (08:36→20:46)
[2018-04-07] MEDS: LORATADINE (CLARITIN) 10 MG TAB PO SCH (08:36)
[2018-04-07] MEDS: FAMOTIDINE 20 MG (PEPCID) TABLET PO SCH ×2 (08:37→20:46)
[2018-04-07] MEDS: AMIODARONE 200 MG (CORDARONE) TAB PO SCH ×2 (08:37→20:46)
[2018-04-07] MEDS: inSUlin DETERMIR 1 UNIT/0.01 ML (LEVEMIR) CHARGE PER UNIT SQ SCH ×2 (08:37→20:52)
[2018-04-07] MEDS: LOSARTAN 25 MG (COZAAR) TAB PO SCH (08:37)
[2018-04-07] MEDS: CLOPIDOGREL 75 MG (PLAVIX) TABLET PO SCH (08:37)
[2018-04-07] MEDS: CIPROFLOXACIN 0.3% (CILOXAN) 2.5 ML BTL OP SCH (08:42)
[2018-04-07] MEDS: SENNA W/DOCUSATE (SENOKOT S) TABLET PO SCH ×2 (08:42→20:55)
--- NOTE | 2018-04-07 09:02 | PM & R (SOAP) Progress Note ---
Subjective This was a face to face visit with the patient. Date Seen by Provider: Apr 07, 2018 Time Seen by Provider: 08:00 Subjective/Events-last exam Patient was seen in his room this AM Patient Mod assist for Transfers Sleeping [place] and having BMS [place]uc[place] stable with better control Objective Physician Exam Last Set of Vital Signs Vital Signs Date Time Temp Pulse Resp B/P (MAP) Pulse Ox O2 Delivery O2 Flow Rate FiO2 04/07/18 05:47 98.4 58 16 108/59 (75) 93 Room Air Capillary Refill : I&O Intake and Output 04/07/18 00:00 Intake Total 490 ml Output Total 200 ml Balance 290 ml Intake Oral 490 ml Output Urine Total 200 ml # Voids 4 # Bowel Movements 1 General: Alert, Cooperative, No Acute Distress HEENT: Atraumatic, PERRLA, EOMI, Mucous Memb Moist/[place], Other (Dysphagia dysarthria ) Neck: Supple, No JVD Lungs: Clear to Auscultation Heart: Normal S1, Normal S2, Other (Systolic murmur at the left sternal border) Abdomen: Normal Bowel Sounds, Soft, No Tenderness Extremities: No Clubbing, No Cyanosis, No Edema Skin: No Rashes, No Breakdown Neuro: Other (Left HP Upper more then lower ) Psych/Mental Status: Mental Status NL, Mood NL Results Lab Data Laboratory Tests 04/04/18 10:54: Glucometer 101 04/04/18 16:04: Glucometer 157H 04/04/18 20:26: Glucometer 211H 04/05/18 04:26: Glucometer 51*L 04/05/18 04:36: Glucometer 47*L 04/05/18 04:41: Glucometer 52*L 04/05/18 04:50: Glucometer 61L 04/05/18 04:57: Glucometer 75 04/05/18 06:26: Glucometer 185H 04/05/18 11:14: Glucometer 225H 04/05/18 17:28: Glucometer 290H 04/05/18 21:03: Glucometer 247H 04/06/18 06:11: White Blood Count 9.4, Red Blood Count 3.81L, Hemoglobin 10.5L, Hematocrit 32L, Mean Corpuscular Volume 85, Mean Corpuscular Hemoglobin 28, Mean Corpuscular Hemoglobin Concent 33, Red Cell Distribution Width 16.2H, Platelet Count 349, Mean Platelet Volume 10.5H, Sodium Level 140, Potassium Level 4.5, Chloride Level 106, Carbon Dioxide Level 28, Anion Gap 6, Blood Urea Nitrogen 25H, Creatinine 1.18, Estimat Glomerular Filtration Rate 60, BUN/Creatinine Ratio 21 , Glucose Level 129H, Calcium Level 8.8, Corrected Calcium 9.5, Total Bilirubin 1.0, Aspartate Amino Transf (AST/SGOT) 18, Alanine Aminotransferase (ALT/SGPT) 16, Alkaline Phosphatase 40, Total Protein 6.0L, Albumin 3.1L 04/06/18 06:25: Glucometer 127H 04/06/18 11:10: Glucometer 189H 04/06/18 16:02: Glucometer 136H 04/06/18 21:03: Glucometer 201H 04/07/18 05:33: Glucometer 151H Assessment/Plan Assessment and Plan RT cva with left HP and dysarthria and dysphagia gradually improving Atypical CP nonrecurrent Chronic A FIB controlled with med CAD Insomnia improved with med Constipation treated Plan Continue PT/OT'ST Team Conference tomorrow Co-Morbidities that are continuing to impact the rehab process: (include details ) EMMY JULIEN MD Apr 07, 2018 09:02
--- NOTE | 2018-04-07 09:57 | Progress Note-Hospitalist ---
Subjective HPI/CC On Admission Date Seen by Provider: Apr 07, 2018 Time Seen by Provider: 09:30 Mr. Guerin is a frail 73-year-old white male who developed abrupt onset of left upper quadrant pain on 18 March. 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 He was discharged with pain medication. On [address] scanning of the chest with contrast for evaluation of subcarinal fullness. It was felt to represent adenopathy a little more prominent than a previous CT scan of the chest in 2012 per radiologist report. No pulmonary abnormalities were reported. He also had significant cholelithiasis without symptoms to suggest cholecystitis. Sometime shortly thereafter he developed left-sided weakness and was transferred to [place] where he was noted to have a right sided CVA without evidence for significant extracranial vascular disease. He ultimately underwent cardiac catheterization as well which reportedly revealed mild hypokinesis with estimated ejection fraction of 40 percent he did have 3 patent grafts he had some disease in the PDA distal to his RCA graft and also had some disease in the obtuse marginal system that was not bypassed. Medical management was opted for however and the patient did not undergo any endovascular-based therapy. He is transferred back to our rehabilitation unit to continue redilatation for deficits that include left-sided hemiparesis as well as dysarthria and mild dysphasia. He reports that he has been swallowing without coughing on thickened liquids and solids. He denies abdominal pain but does note some sores in his mouth. He states that while he still has significant weakness he has had improvement in movement of the left upper extremity and left lower extremity. The left lower extremity is been affected to a lesser degree than left upper extremity. Past medical history seen for long-standing poorly controlled insulin requiring type II diabetes due to poor compliance with bolus therapy for many years. 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 For this reason he had not been on anticoagulant therapy for known underlying persistent atrial fibrillation. He had no previous known history of thromboembolic disease. He has been placed on eliquis and reports no change in vision and also denies ocular pain. He also was diagnosed with urinary tract infection and discharged on Levaquin to our facility. He also has known significant peripheral neuropathy and pressure ulceration with past osteomyelitis of the great toe requiring partial amputation on the left. In the past she's had multiple foot ulcers but is been some time since he last required treatment for diabetic-related foot ulceration. Subjective/Events-last exam Pt still exhibits a flat affect but reports he's doing better. H e voices no complaints today. Staff report slow improvement as well. Objective Exam Vital Signs Vital Signs Date Time Temp Pulse Resp B/P (MAP) Pulse Ox O2 Delivery O2 Flow Rate FiO2 04/08/18 12:40 98.9 68 18 144/74 (97) 99 Room Air Capillary Refill : General Appearance: No Apparent Distress, Chronically ill, Thin Neck: Full Range of Motion, Normal Inspection, Non Tender, Supple, Carotid Bruit Respiratory: Chest Non Tender, Lungs Clear, Normal Breath Sounds, No Accessory Muscle Use, No Respiratory Distress Cardiovascular: No Edema, No Gallop, No JVD, Systolic Murmur (2/6 stable), Irregularly Irregular Gastrointestinal: Normal Bowel Sounds, No Organomegaly, No Pulsatile Mass, Non Tender, Soft Neurologic/Psychiatric: Alert, Depressed Affect, Other (improving R hemiparesis ) Results/Procedures Lab Patient resulted labs reviewed. Assessment/Plan Assessment and Plan Assess & Plan/Chief Complaint 1. 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 Considering splenic infarct likely embolic as well we did discuss the risk of anticoagulant therapy and recurrent hemorrhage versus benefits. In my estimation benefits significantly outweigh risk as she would be highly likely to continue to have embolic symptoms. The downside would be retinal hemorrhages would likely lead to blindness in the affected eye. Patient agrees with continuing anticoagulant therapy.No change in vision reported 2. Known significant coronary artery disease with mild LV systolic dysfunction continue baby aspirin daily. 3. Type II diabetes mellitus insulin requiring blood sugars under very good control he had one level of 63 this morning and his Levemir was held we will decrease to 10 units twice a day. 4. Thrush resolved will DC nystatin.. 5. Chronic atrial fibrillation currently rate controlled. 6. Reported urinary tract infection with resolution on repeat UA.. 7. Carinal fullness possible adenopathy considering the patient's frailty and multiple medical symptoms we will see about obtaining PET scan as an outpatient. 8. Depression we discussed the currently there is a reactive component but I'm also concerned about a direct endogenous component secondary to his stroke. After discussion of antidepressant therapy the patient is tollerating L Lexapro 10 mg daily. Patient encouraged pointing out the progress was occurring and expected to continue. Clinical Quality Measures DVT/VTE Risk/Contraindication: Risk Factor Score Per Nursin RFS Level Per Nursing on Admit: 4+=Very High BEVERLY FERNANDES MD Apr 07, 2018 09:57
--- NOTE | 2018-04-07 11:03 | Occupational Ther Daily Note ---
OT Current Status-Daily Note Subjective Pt alert, lying in bed. Pt appears tired and states that he has trouble sleeping, can't get comfortable in bed. present in room. Agrees to therapy. No c/o pain. Dr. Burleson in to check on pt. Mental Status/Objective Patient Orientation: Person, Place, Time, Situation Functional [place] Measure 0=Not Assessed/NA 4=Minimal Assistance 1=Total Assistance 5=Supervision or Setup 2=Maximal Assistance 6=Modified [place] 3=Moderate Assistance 7=Complete [place] ADL-Treatment Pt declines shower and changing clothing. HOB raised pt able to go from supine to EOB SBA. Min A for SPT from bed to w/c. Assist to maneuver w/c to bathroom. Completes grooming at w/c by self. Functional [place] Measure 0=Not Assessed/NA 4=Minimal Assistance 1=Total Assistance 5=Supervision or Setup 2=Maximal Assistance 6=Modified [place] 3=Moderate Assistance 7=Complete IndependenceIRFPAI Quality Coding Scale 6 Independent with activity with or without an assistive device 5 Patient requires set up or clean up by helper. Patient completes activity by themselves 4 Supervision or touching assist (CGA). [place] provide cues , steadying assist 3 The helper provides less than half the effort to complete the activity 2 The helper provides more than half the effort to complete the activity 1 Dependent. The helper does all the effort to complete an activity 7 Patient refused to complete or attempt activity 9 The patient did not perform the activity before the current illness or injury 88 Not attempted due to Medical conditions or safety concerns Grooming (FIM): 6 Oral Hygiene (QC): 6 Other Treatment Pt maneuvers w/c to therapy gym. Transfers to therapy mat with min A. Dowel jesica exercises in supine with L hand wrapped onto dowel for family support specialist. Pt completed 3 UE AAROM exercises with dowel jesica, no wt, 3 sets 10 reps. Min A to go from supine to sitting edge of mat. Wt bearing completed with L UE. Verbal/ physical cues needed for reminders to straighten L elbow during wt bearing. Pt able to bear wt with L UE for 5 sec until arm buckled, 20x's. Leaning side to side and forward bending (both sides and middle) to increase dynamic balance and core strength, 10x's each. Pt transferred back to w/c and maneuvered back to room. Pt transferred into recliner after therapy. Call light/phone in reach. present in room. All needs met in room. OT Short Term Goals Short Term Goals Time Frame: Apr 09, 2018 Eating(FIM): 6 Grooming(FIM): 5 Bathing(FIM): 4 Upper Body Dressing(FIM): 4 Lower Body Dressing(FIM): 3 Toileting(FIM): 4 Transfers (B,C,W/C) (FIM): 3 Toilet/Commode Transfer(FIM): 4 Shower Transfer(FIM): 4 Additional Short Term Goals: 1-Demonstrate ADL Tasks, 2-Verbalize Understanding , 3-ImproveStrength/[place]uk[place]deep 1=Demonstrate adherence to instructed precautions during ADL tasks. 2=Patient will verbalize/demonstrate understanding of assistive devices/ modifications for ADL. 3=Patient will improve strength/tolerance for activity to enable patient to perform ADL's. OT Driller Portable Goals Driller Portable Goals Time Frame: Apr 23, 2018 Eating (FIM): 6 Eating (QC): 6 Groomin Oral Hygiene (QC): 6 Bathing(FIM): 5 Shower/Bathe Self (QC): 5 Upper Body Dressing(FIM): 5 Upper Body Dressing (QC): 5 Lower Body Dressing(FIM): 5 Lower Body Dressing (QC): 5 On/Off Footwear (QC): 5 Toileting(FIM): 6 Toileting Hygiene (QC): 6 Transfers (B,C,W/C) (FIM): 6 Toilet/Commode Transfer(FIM): 6 Toilet/Commode Transfer (QC): 6 Shower Transfer(FIM): 5 Additional Goals: 1-Demonstrate ADL Tasks, 2-Verbalize Understanding, 3- ImproveStrength/Sukhdeep 1=Demonstrate adherence to instructed precautions during ADL tasks. 2=Patient will verbalize/demonstrate understanding of assistive devices/ modifications for ADL. 3=Patient will improve strength/tolerance for activity to enable patient to perform ADL's. OT Education/Plan Discharge Recommendations Plan/Recommendations: Continue POC Treatment Plan/Plan of Care Patient would benefit from OT for education, treatment and training to promote independence in ADL's, mobility, safety and/or upper extremity function for ADL' s. Plan of Care: ADL Retraining, Functional Mobility, Group Exercise/Act as Ind, UE Funct Exercise/Act Treatment Duration: Apr 23, 2018 Frequency: At least 5 of 7 days/Wk (IRF) Estimated Hrs Per Day: 1.5 hours per day Agreement: Yes Rehab Potential: Fair Time/GCodes Start Time: 09:00 Stop Time: 10:00 Total Time Billed (hr/min): 60 Billed Treatment Time 1 visit-ADL 1 (20 min) NM 3 (40 min) JIMMY DHILLON Apr 07, 2018 11:03
--- NOTE | 2018-04-07 12:00 | Physical Therapy Daily Note ---
PT Daily Note-Current Subjective Pt in recliner pre tx, agrees to PT. No complaints of pain. Appearance Pt in bed post tx w/ call light, phone, tray all needs met. Lunch has been ordered Mental Status Patient Orientation: Person, Place, Time Transfers Functional [place] Measure 0=Not Assessed/NA 4=Minimal Assistance 1=Total Assistance 5=Supervision or Setup 2=Maximal Assistance 6=Modified [place] 3=Moderate Assistance 7=Complete IndependenceIRFPAI Quality Coding Scale 6 Independent with activity with or without an assistive device 5 Patient requires set up or clean up by helper. Patient completes activity by themselves 4 Supervision or touching assist (CGA). [place] provide cues , steadying assist 3 The helper provides less than half the effort to complete the activity 2 The helper provides more than half the effort to complete the activity 1 Dependent. The helper does all the effort to complete an activity 7 Patient refused to complete or attempt activity 9 The patient did not perform the activity before the current illness or injury 88 Not attempted due to Medical conditions or safety concerns Transfers (B, C, W/C) (FIM): 2 Scootin Supine to/from Sit: 3 Sit to/from Stand: 3 Bed to/from Chair: 3 Transfer training x8. Pt needs consistent cues for when to grab arm rest or bed rails, shifting weight to R side during lift off, and getting head low to improve lift off. ModA for sit<->stand and chair<->bed. ModA supine<->sit Wheelchair Training Does the Pt Use a Wheelchair?: Yes Wheelchair (FIM): 4 Wheelchair Distance: 3=150 ft Distance: 150'x2 Wheelchair Level of Assist: 4 Type of Wheelchair: Manual Pt able to use w/c w/ RUE and RLE. Occasionally needs assistance avoiding obstacles and making turns, as well as positioning for transfers. Exercises Seated Therapy Exercises: Long arc quads Standing: Sit to Stand Standing Reps: 10 Parallel bars: sit<->stand 2x5 modA, occasionally Johan when pt lowers head and raises hips. LAQs on mat 3' each leg, rest between each minute, LLE last 2' using 2lb wt Pt modA w/ sitting balance during LAQs w/ cues to lean forward and stay balanced Treatments transfer training, wheelchair training, functional strengthening Assessment Current Status: Fair Progress improved coordination during chair<->bed/chair, but still needs consistent cueing, improving sit<->stand w/ regular cues for weight shift and body position PT Short Term Goals Short Term Goals Time Frame: Apr 02, 2018 Transfers (B,C,W/C) (FIM): 3 Gait (FIM): 1 Gait Distance Comment: 20' Gait Level of Assist: 2 Gait Assistive Device: Cane Large Base Quad Wheelchair Distance: 150' PT Alf Goals Alf Goals PT Appliance Counselor Goals Time Frame: Apr 16, 2018 Transfers (B,C,W/C) (FIM): 4 Sit to Lying (QC): 3 Lying-Sitting on Side/Bed(QC): 3 Sit to Stand (QC): 3 Rollin Roll Left to Right (QC): 3 Chair/Bco-ol-Fohai Xfer(QC): 3 Car Transfer (QC): 3 Gait (FIM): 2 Distance: 50' Walk 10 feet (QC): 3 Walk 10ft-Uneven Surface(QC): 3 Walk 50ft with 2 Turns (QC): 3 Gait Level of Assist: 4 Gait Assistive Device: Cane Large Base Quad Wheelchair (FIM): 6 Distance: 200' Wheel 50 feet with 2 turns (QC: 6 PT Plan Problem List Problem List: Activity Tolerance, Functional Strength, Safety, Balance, Gait, Transfer, Bed Mobility, ROM Treatment/Plan Treatment Plan: Continue Plan of Care Treatment Plan: Bed Mobility, Concurrent Therapy, Education, Functional Activity Sukhdeep, Functional Strength, Group Therapy, Gait, Safety, Therapeutic Exercise, Transfers Treatment Duration: Apr 16, 2018 Frequency: At least 5 of 7 days/Wk (IRF) Estimated Hrs Per Day: 1.5 hours per day Patient and/or Family Agrees t: Yes Safety Risks/Education Patient Education: Gait Training, Transfer Techniques, Correct Positioning, W/ C Management, Safety Issues Teaching Recipient: Patient Teaching Methods: Demonstration, Discussion Response to Teaching: Reinforcement Needed Time/GCodes Time In: 1100 Time Out: 1200 Total Billed Treatment Time: 60 Total Billed Treatment 1 visit [facility] 10' FA 25' EX 15' CAMMY BLACK PT Apr 07, 2018 12:00
--- NOTE | 2018-04-07 13:42 | Occupational Ther Daily Note ---
OT Current Status-Daily Note Subjective Pt alert, lying in bed. Pt agrees to therapy. No c/o pain at this time. Mental Status/Objective Patient Orientation: Person, Place, Time, Situation Functional [place] Measure 0=Not Assessed/NA 4=Minimal Assistance 1=Total Assistance 5=Supervision or Setup 2=Maximal Assistance 6=Modified [place] 3=Moderate Assistance 7=Complete [place] ADL-Treatment Functional [place] Measure 0=Not Assessed/NA 4=Minimal Assistance 1=Total Assistance 5=Supervision or Setup 2=Maximal Assistance 6=Modified [place] 3=Moderate Assistance 7=Complete IndependenceIRFPAI Quality Coding Scale 6 Independent with activity with or without an assistive device 5 Patient requires set up or clean up by helper. Patient completes activity by themselves 4 Supervision or touching assist (CGA). [place] provide cues , steadying assist 3 The helper provides less than half the effort to complete the activity 2 The helper provides more than half the effort to complete the activity 1 Dependent. The helper does all the effort to complete an activity 7 Patient refused to complete or attempt activity 9 The patient did not perform the activity before the current illness or injury 88 Not attempted due to Medical conditions or safety concerns Other Treatment Light and medium resistance theraband given to pt to use in room. Theraband attached to bed, medium resistance for R UE and light resistance for L UE. Pt was able to follow directions with each exercises given, 30 reps for R UE and 10 for L UE. Pt educated on when and how to use. After therapy, pt lying in bed with call light/phone in reach. All needs met in room. Education OT Patient Education: Exercise program Teaching Recipient: Patient Teaching Methods: Demonstration, Discussion Response to Teaching: Verbalize Understanding, Return Demonstration, Reinforcement Needed OT Short Term Goals Short Term Goals Time Frame: Apr 09, 2018 Eating(FIM): 6 Grooming(FIM): 5 Bathing(FIM): 4 Upper Body Dressing(FIM): 4 Lower Body Dressing(FIM): 3 Toileting(FIM): 4 Transfers (B,C,W/C) (FIM): 3 Toilet/Commode Transfer(FIM): 4 Shower Transfer(FIM): 4 Additional Short Term Goals: 1-Demonstrate ADL Tasks, 2-Verbalize Understanding , 3-ImproveStrength/Sukhdeep 1=Demonstrate adherence to instructed precautions during ADL tasks. 2=Patient will verbalize/demonstrate understanding of assistive devices/ modifications for ADL. 3=Patient will improve strength/tolerance for activity to enable patient to perform ADL's. OT Prison Goals [employer] Line Worker Goals Time Frame: Apr 23, 2018 Eating (FIM): 6 Eating (QC): 6 Groomin Oral Hygiene (QC): 6 Bathing(FIM): 5 Shower/Bathe Self (QC): 5 Upper Body Dressing(FIM): 5 Upper Body Dressing (QC): 5 Lower Body Dressing(FIM): 5 Lower Body Dressing (QC): 5 On/Off Footwear (QC): 5 Toileting(FIM): 6 Toileting Hygiene (QC): 6 Transfers (B,C,W/C) (FIM): 6 Toilet/Commode Transfer(FIM): 6 Toilet/Commode Transfer (QC): 6 Shower Transfer(FIM): 5 Additional Goals: 1-Demonstrate ADL Tasks, 2-Verbalize Understanding, 3- ImproveStrength/Sukhdeep 1=Demonstrate adherence to instructed precautions during ADL tasks. 2=Patient will verbalize/demonstrate understanding of assistive devices/ modifications for ADL. 3=Patient will improve strength/tolerance for activity to enable patient to perform ADL's. OT Education/Plan Discharge Recommendations Plan/Recommendations: Continue POC Treatment Plan/Plan of Care Patient would benefit from OT for education, treatment and training to promote independence in ADL's, mobility, safety and/or upper extremity function for ADL' s. Plan of Care: ADL Retraining, Functional Mobility, Group Exercise/Act as Ind, UE Funct Exercise/Act Treatment Duration: Apr 23, 2018 Frequency: At least 5 of 7 days/Wk (IRF) Estimated Hrs Per Day: 1.5 hours per day Agreement: Yes Rehab Potential: Fair Time/GCodes Start Time: 13:15 Stop Time: 13:30 Total Time Billed (hr/min): 15 Billed Treatment Time 1 visit-EX 1 (15 min) JIMMY DHILLON Apr 07, 2018 13:42
--- NOTE | 2018-04-07 14:38 | Physical Therapy Daily Note ---
PT Daily Note-Current Subjective Patient in bed pre tx, agrees to PT, no complaints of pain. Appearance Patient on bedside commode post tx for BM, has nurse call, nurse aide notified he is on bedside commode. Mental Status Patient Orientation: Person, Place, Situation Transfers Functional [place] Measure 0=Not Assessed/NA 4=Minimal Assistance 1=Total Assistance 5=Supervision or Setup 2=Maximal Assistance 6=Modified [place] 3=Moderate Assistance 7=Complete IndependenceIRFPAI Quality Coding Scale 6 Independent with activity with or without an assistive device 5 Patient requires set up or clean up by helper. Patient completes activity by themselves 4 Supervision or touching assist (CGA). [place] provide cues , steadying assist 3 The helper provides less than half the effort to complete the activity 2 The helper provides more than half the effort to complete the activity 1 Dependent. The helper does all the effort to complete an activity 7 Patient refused to complete or attempt activity 9 The patient did not perform the activity before the current illness or injury 88 Not attempted due to Medical conditions or safety concerns Transfers (B, C, W/C) (FIM): 3 Scootin Rollin Supine to/from Sit: 4 Sit to/from Stand: 3 Bed to/from Chair: 3 Cues for hand placement and positioning. Gait Training Gait (FIM): 2 Distance: 50'x3 Gait Level of Assist: 3 Gait Persons Needed: 1 Gait Assistive Device: Walker Rodolfo Patient needs assist with weight shifting and balance, leans to the left, uncoordinated stepping with left leg. Wheelchair Training Does the Pt Use a Wheelchair?: Yes Wheelchair (FIM): 5 Distance: 150'x2 Type of Wheelchair: Manual Patient was able to turn through doorways without assist or hitting doorframe on the left side. Treatments bed mobility and transfers, ambulation, wheelchair mobility Assessment Current Status: Fair Progress Patient has slow but steady improving balance when standing PT Short Term Goals Short Term Goals Time Frame: Apr 02, 2018 Transfers (B,C,W/C) (FIM): 3 Gait (FIM): 1 Gait Distance Comment: 20' Gait Level of Assist: 2 Gait Assistive Device: Cane Large Base Quad Wheelchair Distance: 150'x2 PT Long-Term Goals Zoning Assistant Goals PT Zoning Assistant Goals Time Frame: Apr 16, 2018 Transfers (B,C,W/C) (FIM): 4 Sit to Lying (QC): 3 Lying-Sitting on Side/Bed(QC): 3 Sit to Stand (QC): 3 Rollin Roll Left to Right (QC): 3 Chair/Msf-ab-Ifmce Xfer(QC): 3 Car Transfer (QC): 3 Gait (FIM): 2 Distance: 50' Walk 10 feet (QC): 3 Walk 10ft-Uneven Surface(QC): 3 Walk 50ft with 2 Turns (QC): 3 Gait Level of Assist: 4 Gait Assistive Device: Cane Large Base Quad Wheelchair (FIM): 6 Distance: 200' Wheel 50 feet with 2 turns (QC: 6 PT Plan Problem List Problem List: Activity Tolerance, Functional Strength, Safety, Balance, Gait, Transfer, Bed Mobility Treatment/Plan Treatment Plan: Continue Plan of Care Treatment Plan: Bed Mobility, Concurrent Therapy, Education, Functional Activity Sukhdeep, Functional Strength, Group Therapy, Gait, Safety, Therapeutic Exercise, Transfers Treatment Duration: Apr 16, 2018 Frequency: At least 5 of 7 days/Wk (IRF) Estimated Hrs Per Day: 1.5 hours per day Patient and/or Family Agrees t: Yes Safety Risks/Education Patient Education: Gait Training, Transfer Techniques, Correct Positioning, W/ C Management, Safety Issues Teaching Recipient: Patient Teaching Methods: Demonstration, Discussion Response to Teaching: Reinforcement Needed Time/GCodes Time In: 1400 Time Out: 1430 Total Billed Treatment Time: 30 Total Billed Treatment 1 visit [facility] 10' GT 20' CAMMY BLACK PT Apr 07, 2018 14:37
--- NOTE | 2018-04-07 15:02 | Speech Therapy Daily Note ---
Speech Daily Progress Note Subjective Date Seen by Provider: Apr 07, 2018 Time Seen by Provider: 09:00 Pt pleasant. Objective Pt completed dysphagia exercises with min assist. Assessment Assessment Current Status: Fair Progress Treatment Plan Continue Plan of Care Communication Comprehension: 6 Expression: 7 Social Cognition Social Interaction: 7 Problem Solvin Memory: 7 Speech Short Term Goals Short Term Goals Short Term Goals Pt will complete Oral Motor Exercises with min assist. Time Frame-ST week Speech Mcfp Goals Mcfp Goals Pt will tolerate regular diet with thin liquids with no s/s of aspiration. Time Frame: 3 weeks Speech-Plan Patient/Family Goals Patient/Family Goals: to drink thin liquids Treatment Plan Speech Therapy Treatment Plan: Continue Plan of Care Pt is very motivated to improve. Treatment Duration: Mar 26, 2018 Frequency: 5 times per week Estimated Hrs Per Day: .5 hour per day Rehab Potential: Fair Pt/Family Agrees to Plan: Yes Safety Risks/Education Teaching Recipient: Family Teaching Methods: Demonstration Response to Teaching: Return Demonstration Time Speech Therapy Time In: 09:00 Speech Therapy Time Out: 09:30 Total Billed Time: 30 Billed Treatment Time 1, DYST No MAGALY GARAY Apr 07, 2018 15:02
[2018-04-07 16:37] VITALS: BP 119/70
[2018-04-07] MEDS: MELATONIN 3 MG TABLET PO SCH (20:45)
[2018-04-07] MEDS: ATORVASTATIN 40 MG (LIPITOR) TABLET PO SCH (20:45)
[2018-04-07] MEDS: POLYETHYLENE GLYCOL 17 GM (MIRALAX) PACK PO SCH (20:55)
[2018-04-08 05:30] VITALS: BP 121/69
[2018-04-08] MEDS: inSUlin ASPART (NovoLOG) 1 UNIT/0.01 ML (CHARGE PER UNIT) SC SCH ×4 (06:00→21:04)
--- NOTE | 2018-04-08 08:53 | Cardiology Progress Note ---
Subjective Date Seen by Provider: Apr 08, 2018 Time Seen by Provider: 08:40 Subjective/Events-last exam Patient is up to bathroom. Denies any CP or dyspnea. Continues to c/o left sided weakness secondary to CVA Objective-Cardiology Exam Last Set of Vital Signs Vital Signs 04/08/18 05:30 Temp 98.7 Pulse 54 Resp 16 B/P (MAP) 121/69 (86) Pulse Ox 95 O2 Delivery Room Air Capillary Refill : I&O Intake and Output 04/08/18 00:00 Intake Total 1210 ml Balance 1210 ml Intake Oral 1210 ml # Voids 6 General: Alert, Cooperative, No Acute Distress HEENT: Atraumatic, PERRLA, EOMI, Mucous Memb Moist/[place], Other (Dysphagia dysarthria ) Neck: Supple, No JVD Lungs: Clear to Auscultation Heart: Normal S1, Normal S2, Other (Systolic murmur at the left sternal border) Abdomen: Normal Bowel Sounds, Soft, No Tenderness Extremities: No Clubbing, No Cyanosis, No Edema Skin: No Rashes, No Breakdown Neuro: Other (Left HP Upper more then lower ) Psych/Mental Status: Mental Status NL, Mood NL A/P-Cardiology Admission Diagnosis Chest pain CAD CVA Persistent atrial fibrillation Assessment/Plan Chest pain, nonspecific etiology. Resolved. Responded to PPI. Acute coronary syndrome ruled out with serial negative troponin and negative EKG. ASA was discontinued and started on Plavix. Continue to monitor CAD with history of CABG: Recent coronary angiography at [facility] showed patent grafts with distal disease not amendable to PCI. Medical therapy was recommended. Recurrent CVA/thromboembolic events, continue on Eliquis. Persistent atrial fibrillation on amiodarone and Eliquis. Also on diltiazem and beta sammie. Continue to monitor, at this time it appear that he started on Eliquis after his last stroke about a week ago. Continue to monitor, managed by Dr. House Ischemic cardiomyopathy, chronic left ventricular systolic dysfunction, congestive heart failure, compensated, ejection fraction 45-50 percent, start metoprolol and losartan and monitor her tolerance and response Mild to moderate Aortic stenosis- 2D Echo done 03/31/18 revealed mild to moderate , mod TR, MR. PA 60-65mmHg Pulmonary hypertension- PA 60-65 mmHg per 2D Echo done 03/31/18. Depression- management per medical services. Clinical Quality Measures DVT/VTE Risk/Contraindication: Risk Factor Score Per Nursin RFS Level Per Nursing on Admit: 4+=Very High LB MARTÍNEZ Apr 08, 2018 08:53
[2018-04-08 09:15] VITALS: BP 115/54
[2018-04-08] MEDS: CLOPIDOGREL 75 MG (PLAVIX) TABLET PO SCH (09:29)
[2018-04-08] MEDS: AMIODARONE 200 MG (CORDARONE) TAB PO SCH ×2 (09:29→20:57)
[2018-04-08] MEDS: FAMOTIDINE 20 MG (PEPCID) TABLET PO SCH ×2 (09:29→20:57)
[2018-04-08] MEDS: LOSARTAN 25 MG (COZAAR) TAB PO SCH (09:30)
[2018-04-08] MEDS: LORATADINE (CLARITIN) 10 MG TAB PO SCH (09:30)
[2018-04-08] MEDS: APIXABAN 5 MG (ELIQUIS) TABLET PO SCH ×2 (09:30→20:57)
[2018-04-08] MEDS: FLUTICASONE NASAL SPRAY (FLONASE) 16 GM BTL NS SCH (09:30)
[2018-04-08] MEDS: SENNA W/DOCUSATE (SENOKOT S) TABLET PO SCH ×2 (09:31→20:53)
[2018-04-08] MEDS: inSUlin DETERMIR 1 UNIT/0.01 ML (LEVEMIR) CHARGE PER UNIT SQ SCH ×2 (09:31→21:02)
--- NOTE | 2018-04-08 09:37 | PM & R (SOAP) Progress Note ---
Subjective This was a face to face visit with the patient. Date Seen by Provider: Apr 08, 2018 Time Seen by Provider: 07:55 Subjective/Events-last exam Patient was seen in his room this AM Patient Mod assist for transfers.atient c/ o rt neck pain may be positinal will check Review of Systems Musculoskeletal: neck pain Objective Physician Exam Last Set of Vital Signs Vital Signs Date Time Temp Pulse Resp B/P (MAP) Pulse Ox O2 Delivery O2 Flow Rate FiO2 04/08/18 05:30 98.7 54 16 121/69 (86) 95 Room Air Capillary Refill : I&O Intake and Output 04/08/18 00:00 Intake Total 1210 ml Balance 1210 ml Intake Oral 1210 ml # Voids 6 General: Alert, Cooperative, No Acute Distress HEENT: Atraumatic, PERRLA, EOMI, Mucous Memb Moist/[place], Other (Dysphagia dysarthria ) Neck: Supple, No JVD Lungs: Clear to Auscultation Heart: Normal S1, Normal S2, Other (Systolic murmur at the left sternal border) Abdomen: Normal Bowel Sounds, Soft, No Tenderness Extremities: No Clubbing, No Cyanosis, No Edema Skin: No Rashes, No Breakdown Neuro: Other (Left HP Upper more then lower ) Psych/Mental Status: Mental Status NL, Mood NL Results Lab Data Laboratory Tests 04/05/18 11:14: Glucometer 225H 04/05/18 17:28: Glucometer 290H 04/05/18 21:03: Glucometer 247H 04/06/18 06:11: White Blood Count 9.4, Red Blood Count 3.81L, Hemoglobin 10.5L, Hematocrit 32L, Mean Corpuscular Volume 85, Mean Corpuscular Hemoglobin 28, Mean Corpuscular Hemoglobin Concent 33, Red Cell Distribution Width 16.2H, Platelet Count 349, Mean Platelet Volume 10.5H, Sodium Level 140, Potassium Level 4.5, Chloride Level 106, Carbon Dioxide Level 28, Anion Gap 6, Blood Urea Nitrogen 25H, Creatinine 1.18, Estimat Glomerular Filtration Rate 60, BUN/Creatinine Ratio 21 , Glucose Level 129H, Calcium Level 8.8, Corrected Calcium 9.5, Total Bilirubin 1.0, Aspartate Amino Transf (AST/SGOT) 18, Alanine Aminotransferase (ALT/SGPT) 16, Alkaline Phosphatase 40, Total Protein 6.0L, Albumin 3.1L 04/06/18 06:25: Glucometer 127H 04/06/18 11:10: Glucometer 189H 04/06/18 16:02: Glucometer 136H 04/06/18 21:03: Glucometer 201H 04/07/18 05:33: Glucometer 151H 04/07/18 10:59: Glucometer 291H 04/07/18 16:35: Glucometer 146H 04/07/18 20:20: Glucometer 237H 04/08/18 05:12: Glucometer 98 Assessment/Plan Assessment and Plan RT cva with left HP and dysphagia gradually improving Discussed case with RN and ST this AM Atypical CP resolved Chronic A FIB controlled with med CAD Insomnia improved with med Constipation improved with med RT Neck pain will check Plan Continue Pt/Ot/ST Team Conference later today -See report for full functional update and POC and ELOS F/U re Neck pain Co-Morbidities that are continuing to impact the rehab process: (include details ) EMMY JULIEN MD Apr 08, 2018 09:36
--- NOTE | 2018-04-08 09:51 | Occupational Ther Daily Note ---
OT Current Status-Daily Note Subjective Pt just woke lying in bed. Pt agrees to therapy. Pt c/o pain in R side of neck , discharge from ear noticed. Reported to nrsg, nsrg checked on pt. Mental Status/Objective Patient Orientation: Person, Place, Time, Situation Functional [place] Measure 0=Not Assessed/NA 4=Minimal Assistance 1=Total Assistance 5=Supervision or Setup 2=Maximal Assistance 6=Modified [place] 3=Moderate Assistance 7=Complete [place] ADL-Treatment Pt agrees to shower. Min A for supine to EOB when HOB is flat. Using victoriano walker, min A for transfer from bed to shower chair. Rolling shower chair into bathroom, pt able to complete grooming at sink. Verbal cues for one handed techniques. Pt incontinent of bowel while on shower chair with cut out, placed bucket under shower chair and pt required conscious effort to defecate. When handed wipes is able to cleanse self on shower chair with cutout. Standing with mod A, pt able to hike pants over hips. Pt has tendency to push toward L side when standing to hike pants. Continual reminders to use one handed techniques to don/doff over feet. Mod A for lower body dressing. Using victoriano walker, mod A and verbal cues for transfers. Applied MHP to L side of neck to decrease pain after therapy, PATIENT CARRIER in room for session. Call light/phone in reach. present in room. Functional [place] Measure 0=Not Assessed/NA 4=Minimal Assistance 1=Total Assistance 5=Supervision or Setup 2=Maximal Assistance 6=Modified [place] 3=Moderate Assistance 7=Complete IndependenceIRFPAI Quality Coding Scale 6 Independent with activity with or without an assistive device 5 Patient requires set up or clean up by helper. Patient completes activity by themselves 4 Supervision or touching assist (CGA). [place] provide cues , steadying assist 3 The helper provides less than half the effort to complete the activity 2 The helper provides more than half the effort to complete the activity 1 Dependent. The helper does all the effort to complete an activity 7 Patient refused to complete or attempt activity 9 The patient did not perform the activity before the current illness or injury 88 Not attempted due to Medical conditions or safety concerns Eating (FIM): 5 ( set up breakfast then pt used regular utensils to eat with.) Eating (QC): 5 Grooming (FIM): 6 Oral Hygiene (QC): 6 Bathing (FIM): 5 (Set up and SBA for safety.) Bathing Location: L Arm, R Arm, L Upper Leg, R Upper Leg, L Lower Leg ( including foot), R Lower Leg (including foot), Chest, Abdomen, Buttocks, Perineal Area Shower/Bathe Self (QC): 5 Upper Body (FIM): 5 Upper Body Dressing (QC): 4 Lower Body Dressing (FIM): 3 Lower Body Dressing (QC): 3 On/Off Footwear (QC): 3 Toileting (FIM): 1 Toileting Hygiene (QC): 1 Transfers (B, C, W/C) (FIM): 3 OT Short Term Goals Short Term Goals Time Frame: Apr 09, 2018 Eating(FIM): 6 Grooming(FIM): 5 Bathing(FIM): 4 Upper Body Dressing(FIM): 4 Lower Body Dressing(FIM): 3 Toileting(FIM): 4 Transfers (B,C,W/C) (FIM): 3 Toilet/Commode Transfer(FIM): 4 Shower Transfer(FIM): 4 Additional Short Term Goals: 1-Demonstrate ADL Tasks, 2-Verbalize Understanding , 3-ImproveStrength/Sukhdeep 1=Demonstrate adherence to instructed precautions during ADL tasks. 2=Patient will verbalize/demonstrate understanding of assistive devices/ modifications for ADL. 3=Patient will improve strength/tolerance for activity to enable patient to perform ADL's. OT Program Associate Goals Senior Care Goals Time Frame: Apr 23, 2018 Eating (FIM): 6 Eating (QC): 6 Groomin Oral Hygiene (QC): 6 Bathing(FIM): 5 Shower/Bathe Self (QC): 5 Upper Body Dressing(FIM): 5 Upper Body Dressing (QC): 5 Lower Body Dressing(FIM): 5 Lower Body Dressing (QC): 5 On/Off Footwear (QC): 5 Toileting(FIM): 6 Toileting Hygiene (QC): 6 Transfers (B,C,W/C) (FIM): 6 Toilet/Commode Transfer(FIM): 6 Toilet/Commode Transfer (QC): 6 Shower Transfer(FIM): 5 Additional Goals: 1-Demonstrate ADL Tasks, 2-Verbalize Understanding, 3- ImproveStrength/Sukhdeep 1=Demonstrate adherence to instructed precautions during ADL tasks. 2=Patient will verbalize/demonstrate understanding of assistive devices/ modifications for ADL. 3=Patient will improve strength/tolerance for activity to enable patient to perform ADL's. OT Education/Plan Discharge Recommendations Plan/Recommendations: Continue POC Treatment Plan/Plan of Care Patient would benefit from OT for education, treatment and training to promote independence in ADL's, mobility, safety and/or upper extremity function for ADL' s. Plan of Care: ADL Retraining, Functional Mobility, Group Exercise/Act as Ind, UE Funct Exercise/Act Treatment Duration: Apr 23, 2018 Frequency: At least 5 of 7 days/Wk (IRF) Estimated Hrs Per Day: 1.5 hours per day Agreement: Yes Rehab Potential: Fair Time/GCodes Start Time: 07:52 Stop Time: 08:52 Total Time Billed (hr/min): 60 Billed Treatment Time 1 visit-ADL 4 (60 min) JIMMY DHILLON Apr 08, 2018 09:51
[2018-04-08 11:10] VITALS: BP 172/76
--- NOTE | 2018-04-08 11:13 | Cardiology Progress Note ---
Subjective Date Seen by Provider: Apr 08, 2018 Time Seen by Provider: 11:13 Subjective/Events-last exam Patient is sitting in a chair, feeling better. Denied any chest pain or shortness of breath. Still having weakness. Review of Systems General: No Chills, No Night Sweats, No Fatigue, No Malaise, No Appetite, No Other HEENT: No Head Aches, No Visual Changes, No Eye Pain, No Ear Pain, No Dysphasia , No Sinus Congestion, No Post Nasal Drip, No Sore Throat, No Other Pulmonary: No Dyspnea, No Cough, No Pleuritic Chest Pain, No Other Cardiovascular: No: Chest Pain, Palpitations, Orthopnea, Paroxysmal Noc. Dyspnea, Edema, Lt Headedness, Other Objective-Cardiology Exam Last Set of Vital Signs Vital Signs 04/08/18 09:15 Temp 98.4 Pulse 67 Resp 18 B/P (MAP) 115/54 (74) Pulse Ox 98 O2 Delivery Room Air Capillary Refill : I&O Intake and Output 04/08/18 00:00 Intake Total 1210 ml Balance 1210 ml Intake Oral 1210 ml # Voids 6 General: Alert, Cooperative, No Acute Distress HEENT: Atraumatic, PERRLA, EOMI, Mucous Memb Moist/[place], Other (Dysphagia dysarthria ) Neck: Supple, No JVD Lungs: Clear to Auscultation Heart: Normal S1, Normal S2, Other (Systolic murmur at the left sternal border) Abdomen: Normal Bowel Sounds, Soft, No Tenderness Extremities: No Clubbing, No Cyanosis, No Edema Skin: No Rashes, No Breakdown Neuro: Other (Left HP Upper more then lower ) Psych/Mental Status: Mental Status NL, Mood NL A/P-Cardiology Admission Diagnosis Chest pain CAD CVA Persistent atrial fibrillation Assessment/Plan Chest pain, nonspecific etiology. Resolved. Responded to PPI. Acute coronary syndrome ruled out with serial negative troponin and negative EKG. ASA was discontinued and started on Plavix. Continue to monitor CAD with history of CABG: Recent coronary angiography at [facility] showed patent grafts with distal disease not amendable to PCI. Medical therapy was recommended. Recurrent CVA/thromboembolic events, continue on Eliquis. Persistent atrial fibrillation on amiodarone and Eliquis. Also on diltiazem and beta sammie. Continue to monitor, at this time it appear that he started on Eliquis after his last stroke about a week ago. Continue to monitor, managed by Dr. House Ischemic cardiomyopathy, chronic left ventricular systolic dysfunction, congestive heart failure, compensated, ejection fraction 45-50 percent, start metoprolol and losartan and monitor her tolerance and response Mild to moderate Aortic stenosis- 2D Echo done 03/31/18 revealed mild to moderate , mod TR, MR. PA 60-65mmHg Pulmonary hypertension- PA 60-65 mmHg per 2D Echo done 03/31/18. Depression- management per medical services. Clinical Quality Measures DVT/VTE Risk/Contraindication: Risk Factor Score Per Nursin RFS Level Per Nursing on Admit: 4+=Very High TYERSE HENRIQUEZ MD Apr 08, 2018 11:13
[2018-04-08] MEDS: ACETAMINOPHEN 325 MG TABLET PO PRN (11:30)
[2018-04-08] MEDS ORDERED: DICLOFENAC 1% GEL 100 GM (VOLTAREN) TUBE TOP PRN (12:00)
--- NOTE | 2018-04-08 12:26 | Physical Therapy Daily Note ---
PT Daily Note-Current Subjective Pt sitting in recliner upon arrival. Pt agrees to PT. Pt reports not sleeping well last night. Pain Numeric Pain Scale: 4 Location: Right Location Body Site: Hip Pain Description: Ache Mental Status Patient Orientation: Person, Place, Situation Transfers Functional [place] Measure 0=Not Assessed/NA 4=Minimal Assistance 1=Total Assistance 5=Supervision or Setup 2=Maximal Assistance 6=Modified [place] 3=Moderate Assistance 7=Complete IndependenceIRFPAI Quality Coding Scale 6 Independent with activity with or without an assistive device 5 Patient requires set up or clean up by helper. Patient completes activity by themselves 4 Supervision or touching assist (CGA). [place] provide cues , steadying assist 3 The helper provides less than half the effort to complete the activity 2 The helper provides more than half the effort to complete the activity 1 Dependent. The helper does all the effort to complete an activity 7 Patient refused to complete or attempt activity 9 The patient did not perform the activity before the current illness or injury 88 Not attempted due to Medical conditions or safety concerns Scootin Rollin Roll Left to Right (QC): 4 Supine to/from Sit: 3 Sit to/from Stand: 3 Sit to Lying (QC): 3 Sit to Stand (QC): 2 Bed to/from Chair: 2 Weight Bearing Right Lower Extremity: Right Weight Bearing/Tolerated Left Lower Extremity: Left Weight Bearing/Tolerated Exercises Supine Ex: Ankle pumps, Quad Set, Glut sets, Heel Slides, Straight leg raise, Hip abd/add Supine Reps: 20 (2 sets) Treatments Pt transfers from recliner to standing using Rodolfo Walker. Pt takes a couple of steps then BLE melts under him. Pt eases in controlled sit to floor. FOOD CONSULTANT & Aide lift pt from sitting on floor into [facility]. Pt then reports wanting to lay down. Pt is assisted to standing by FOOD CONSULTANT & ROMERO while Nurse checks backside from fall. Pt transfers to EOB then to Supine at Min A. Pt completes Supine Ex (2 rounds) with rest breaks as needed. Pt is given Tynelol to rizo off pain. FOOD CONSULTANT assists pt with ordering lunch at end of tx. Pt has all needs met. Assessment Pt reports not sleeping well last night and tired. Pt demonstrates weakness with transfers. PT Short Term Goals Short Term Goals Time Frame: Apr 02, 2018 Transfers (B,C,W/C) (FIM): 3 Gait (FIM): 1 Gait Distance Comment: 20' Gait Level of Assist: 2 Gait Assistive Device: Cane Large Base Quad Wheelchair Distance: 150'x2 PT Food Selector Goals Retirement Goals PT Retirement Goals Time Frame: Apr 16, 2018 Transfers (B,C,W/C) (FIM): 4 Sit to Lying (QC): 3 Lying-Sitting on Side/Bed(QC): 3 Sit to Stand (QC): 3 Rollin Roll Left to Right (QC): 3 Chair/Wde-kv-Vlfwl Xfer(QC): 3 Car Transfer (QC): 3 Gait (FIM): 2 Distance: 50' Walk 10 feet (QC): 3 Walk 10ft-Uneven Surface(QC): 3 Walk 50ft with 2 Turns (QC): 3 Gait Level of Assist: 4 Gait Assistive Device: Cane Large Base Quad Wheelchair (FIM): 6 Distance: 200' Wheel 50 feet with 2 turns (QC: 6 PT Plan Problem List Problem List: Activity Tolerance, Functional Strength, Safety, Balance, Gait, Transfer, Bed Mobility, ROM Treatment/Plan Treatment Plan: Continue Plan of Care Treatment Plan: Bed Mobility, Concurrent Therapy, Education, Functional Activity Sukhdeep, Functional Strength, Group Therapy, Gait, Safety, Therapeutic Exercise, Transfers Treatment Duration: Apr 16, 2018 Frequency: At least 5 of 7 days/Wk (IRF) Estimated Hrs Per Day: 1.5 hours per day Patient and/or Family Agrees t: Yes Safety Risks/Education Patient Education: Gait Training, Transfer Techniques, Correct Positioning, Safety Issues Teaching Recipient: Patient Teaching Methods: Discussion Response to Teaching: Verbalize Understanding Time/GCodes Time In: 1100 Time Out: 1200 Total Billed Treatment Time: 60 Total Billed Treatment 1, FA x2 (30m) & EX x2 (30m) G Codes Necessary: AUREA Stevens FOOD CONSULTANT Apr 08, 2018 12:25
[2018-04-08 12:40] VITALS: BP 144/74
--- NOTE | 2018-04-08 15:03 | Therapy Group Daily Note ---
Therapy Daily Group Note Patient Education Topic Fall Prevention Other/Notes Pt propelled [facility] from room to Therapy [facility] for Group. Pt participated in PT/ OT Group today. Group consisted of Introductions (Name, Where you are from & What is the grossest thing you have ever seen?), Socialization, ARU Description and Expectations as well as Fall Prevention Education and Quiz. Pt participated in Group by giving examples of Falls & Introductions. Pt also actively listened to other patients and staff. Pt returns to room to rest in bed. Start Time: 13:00 Stop Time: 14:15 Total Billed Treatment Time: 75 Total Billed Treatment 1, GRP AUREA ESPARZA REAL ESTATE TRANSACTION COORDINATOR Apr 08, 2018 15:03
--- NOTE | 2018-04-08 15:32 | Speech Therapy Daily Note ---
Speech Daily Progress Note Subjective Date Seen by Provider: Apr 08, 2018 Time Seen by Provider: 09:00 Pleasant. Pain Numeric Pain Scale: 0-No Pain Objective Pt completed dysphagia exercises with min assist. Treatment Plan Continue Plan of Care Communication Comprehension: 6 Expression: 7 Social Cognition Social Interaction: 7 Problem Solvin Memory: 7 Speech Short Term Goals Short Term Goals Short Term Goals Pt will complete Oral Motor Exercises with min assist. Time Frame-ST week Speech Electrical Sign Wirer Goals Electrical Sign Wirer Goals Pt will tolerate regular diet with thin liquids with no s/s of aspiration. Time Frame: 3 weeks Speech-Plan Patient/Family Goals Patient/Family Goals: to drink thin liquids. Treatment Plan Speech Therapy Treatment Plan: Continue Plan of Care Pt continues to participate despite being fatigued frequently. Treatment Duration: Mar 26, 2018 Frequency: 5 times per week Estimated Hrs Per Day: .5 hour per day Rehab Potential: Fair Pt/Family Agrees to Plan: Yes Time Speech Therapy Time In: 09:00 Speech Therapy Time Out: 09:30 Total Billed Time: 30 Billed Treatment Time 1, DYST No MAGALY GARAY Apr 08, 2018 15:32
[2018-04-08 18:36] VITALS: BP 125/65
[2018-04-08] MEDS: POLYETHYLENE GLYCOL 17 GM (MIRALAX) PACK PO SCH (20:52)
[2018-04-08 20:56] VITALS: BP 122/71
[2018-04-08] MEDS: ATORVASTATIN 40 MG (LIPITOR) TABLET PO SCH (20:57)
[2018-04-08] MEDS: MELATONIN 3 MG TABLET PO SCH (20:57)
[2018-04-09 05:30] VITALS: BP 139/78
[2018-04-09] MEDS: inSUlin ASPART (NovoLOG) 1 UNIT/0.01 ML (CHARGE PER UNIT) SC SCH ×4 (05:42→21:19)
[2018-04-09] MEDS: FLUTICASONE NASAL SPRAY (FLONASE) 16 GM BTL NS SCH (08:40)
[2018-04-09] MEDS: LORATADINE (CLARITIN) 10 MG TAB PO SCH (08:40)
[2018-04-09] MEDS: AMIODARONE 200 MG (CORDARONE) TAB PO SCH ×2 (08:41→21:30)
[2018-04-09] MEDS: APIXABAN 5 MG (ELIQUIS) TABLET PO SCH ×2 (08:41→21:30)
[2018-04-09] MEDS: CLOPIDOGREL 75 MG (PLAVIX) TABLET PO SCH (08:41)
[2018-04-09] MEDS: LOSARTAN 25 MG (COZAAR) TAB PO SCH (08:41)
[2018-04-09] MEDS: FAMOTIDINE 20 MG (PEPCID) TABLET PO SCH ×2 (08:41→21:31)
[2018-04-09] MEDS: inSUlin DETERMIR 1 UNIT/0.01 ML (LEVEMIR) CHARGE PER UNIT SQ SCH ×2 (08:42→21:31)
[2018-04-09] MEDS: SENNA W/DOCUSATE (SENOKOT S) TABLET PO SCH ×2 (08:49→21:31)
--- NOTE | 2018-04-09 10:14 | PM & R (SOAP) Progress Note ---
Subjective This was a face to face visit with the patient. Date Seen by Provider: Apr 09, 2018 Time Seen by Provider: 08:10 Subjective/Events-last exam Patient was seen in his room this AM Patient Mod assist for transfers.Patient desaturating at rest Discussed with RN asked her to inform PCP or hospitalist or cardiology re f/u possible CXR patient has hx of cardiomyopathy and Cardiology following Review of Systems Pulmonary: Dyspnea Objective Physician Exam Last Set of Vital Signs Vital Signs Date Time Temp Pulse Resp B/P (MAP) Pulse Ox O2 Delivery O2 Flow Rate FiO2 04/09/18 08:39 Room Air 04/09/18 05:30 97.8 51 16 139/78 (98) 97 Capillary Refill : I&O Intake and Output 04/09/18 00:00 Intake Total 1870 ml Balance 1870 ml Intake Oral 1870 ml # Voids 7 # Bowel Movements 1 General: Alert, Cooperative, No Acute Distress HEENT: Atraumatic, PERRLA, EOMI, Mucous Memb Moist/[place], Other (Dysphagia dysarthria ) Neck: Supple, No JVD Lungs: Clear to Auscultation, Other (Decreased breath sounds) Heart: Normal S1, Normal S2, Other (Systolic murmur at the left sternal border) Abdomen: Normal Bowel Sounds, Soft, No Tenderness Extremities: No Clubbing, No Cyanosis, No Edema Skin: No Rashes, No Breakdown Neuro: Other (Left HP Upper more then lower ) Psych/Mental Status: Mental Status NL, Mood NL Results Lab Data Laboratory Tests 04/06/18 11:10: Glucometer 189H 04/06/18 16:02: Glucometer 136H 04/06/18 21:03: Glucometer 201H 04/07/18 05:33: Glucometer 151H 04/07/18 10:59: Glucometer 291H 04/07/18 16:35: Glucometer 146H 04/07/18 20:20: Glucometer 237H 04/08/18 05:12: Glucometer 98 04/08/18 10:58: Glucometer 195H 04/08/18 16:24: Glucometer 219H 04/08/18 20:59: Glucometer 206H 04/09/18 05:32: Glucometer 117H Assessment/Plan Assessment and Plan RT cva with left HP and dysphagia Chronic aFIB controlled with med CAD Insomnia improved Constipation improved RT neck pain improved RT Hip pain s/p fall improving Resp insufficciency with HX of ischemic cardiomyopathy with chronic left ventricular systolic dysfunction with EF 45-50 % Mild to moderate Depression Plan Continue PT/OT/ST Repeat MBS soon with ST F/U with medical team re possible CXR-see orders Co-Morbidities that are continuing to impact the rehab process: (include details ) EMMY JULIEN MD Apr 09, 2018 10:14
--- NOTE | 2018-04-09 10:46 | Occupational Ther Daily Note ---
OT Current Status-Daily Note Subjective Pt sleeping in bed, woke easily to name. Pt agrees to therapy. Pt c/o being tired. Mental Status/Objective Patient Orientation: Person, Place, Time, Situation Functional [place] Measure 0=Not Assessed/NA 4=Minimal Assistance 1=Total Assistance 5=Supervision or Setup 2=Maximal Assistance 6=Modified [place] 3=Moderate Assistance 7=Complete [place] ADL-Treatment Pt declined shower. Pt given shirt and able to don by self. At w/c level, pt able to complete grooming. Pt requested to use toilet. Mod A for transfer. Max A x2 to manipulate clothing, hygiene completed by pt sitting on toilet. Functional [place] Measure 0=Not Assessed/NA 4=Minimal Assistance 1=Total Assistance 5=Supervision or Setup 2=Maximal Assistance 6=Modified [place] 3=Moderate Assistance 7=Complete IndependenceIRFPAI Quality Coding Scale 6 Independent with activity with or without an assistive device 5 Patient requires set up or clean up by helper. Patient completes activity by themselves 4 Supervision or touching assist (CGA). [place] provide cues , steadying assist 3 The helper provides less than half the effort to complete the activity 2 The helper provides more than half the effort to complete the activity 1 Dependent. The helper does all the effort to complete an activity 7 Patient refused to complete or attempt activity 9 The patient did not perform the activity before the current illness or injury 88 Not attempted due to Medical conditions or safety concerns Grooming (FIM): 6 Oral Hygiene (QC): 6 Upper Body (FIM): 5 Upper Body Dressing (QC): 5 Toileting (FIM): 1 Toileting Hygiene (QC): 1 Transfers (B, C, W/C) (FIM): 3 Toilet/Commode Transfer (FIM): 3 Toilet Transfer (QC): 3 Other Treatment Pt maneuvered w/c to therapy gym. Pt complete visual perception activities using R hand. Increased tremors with writing, 1/2# placed on R hand decreased tremors. Pt able to complete visual perception task would move paper to R side , when paper kept stationary pt would turn head to L side to compensate. Pt then complete UE AROM exercises against gravity. L Shldr flexion to approximately 100*, WFL elbow flexion, wrist flexion/extension past neutral and full finger flexion and movement noted with finger flexion. Pt then transferred to radiology chair for MBS. Pt left in care of INTER COM SERVICER. All needs met. OT Short Term Goals Short Term Goals Time Frame: Apr 09, 2018 Eating(FIM): 6 Grooming(FIM): 5 Bathing(FIM): 4 Upper Body Dressing(FIM): 4 Lower Body Dressing(FIM): 3 Toileting(FIM): 4 Transfers (B,C,W/C) (FIM): 3 Toilet/Commode Transfer(FIM): 4 Shower Transfer(FIM): 4 Additional Short Term Goals: 1-Demonstrate ADL Tasks, 2-Verbalize Understanding , 3-ImproveStrength/Sukhdeep 1=Demonstrate adherence to instructed precautions during ADL tasks. 2=Patient will verbalize/demonstrate understanding of assistive devices/ modifications for ADL. 3=Patient will improve strength/tolerance for activity to enable patient to perform ADL's. OT Line Rider Goals Correction Goals Time Frame: Apr 23, 2018 Eating (FIM): 6 Eating (QC): 6 Groomin Oral Hygiene (QC): 6 Bathing(FIM): 5 Shower/Bathe Self (QC): 5 Upper Body Dressing(FIM): 5 Upper Body Dressing (QC): 5 Lower Body Dressing(FIM): 5 Lower Body Dressing (QC): 5 On/Off Footwear (QC): 5 Toileting(FIM): 6 Toileting Hygiene (QC): 6 Transfers (B,C,W/C) (FIM): 6 Toilet/Commode Transfer(FIM): 6 Toilet/Commode Transfer (QC): 6 Shower Transfer(FIM): 5 Additional Goals: 1-Demonstrate ADL Tasks, 2-Verbalize Understanding, 3- ImproveStrength/Sukhdeep 1=Demonstrate adherence to instructed precautions during ADL tasks. 2=Patient will verbalize/demonstrate understanding of assistive devices/ modifications for ADL. 3=Patient will improve strength/tolerance for activity to enable patient to perform ADL's. OT Education/Plan Discharge Recommendations Plan/Recommendations: Continue POC Treatment Plan/Plan of Care Patient would benefit from OT for education, treatment and training to promote independence in ADL's, mobility, safety and/or upper extremity function for ADL' s. Plan of Care: ADL Retraining, Functional Mobility, Group Exercise/Act as Ind, UE Funct Exercise/Act Treatment Duration: Apr 23, 2018 Frequency: At least 5 of 7 days/Wk (IRF) Estimated Hrs Per Day: 1.5 hours per day Agreement: Yes Rehab Potential: Fair Time/GCodes Start Time: 09:35 Stop Time: 10:30 Total Time Billed (hr/min): 55 Billed Treatment Time 1 visit-ADL 1 (17 min) NM 3 (38 min) JIMMY DHILLON Apr 09, 2018 10:46
--- NOTE | 2018-04-09 11:53 | Diagnostic Imaging Report ---
INDICATION: Stroke. FINDINGS: The procedure was performed in conjunction with speech pathology. Videofluoroscopy was performed during swallowing of barium of multiple consistencies. A total of 1 minute and 59 seconds of fluoroscopy was utilized. Patient ingested thin as well as nectar, applesauce, mechanical soft and cracker consistency. Oral phase is unremarkable. There is normal epiglottic tilt and laryngeal elevation. There is significant vallecular residue noted with all consistencies. There was a single episode of penetration and aspiration during the swallowing of thin barium. No other episodes of penetration and aspiration were observed. There is [id number] pyriform sinus residue as well. IMPRESSION: Abnormal video swallow demonstrating an episode of aspiration during the swallowing of thin barium. There is also moderate vallecular and pyriform sinus residue with all consistencies. Dictated by: Dictated on workstation # [id number]
--- NOTE | 2018-04-09 15:25 | Physical Therapy Daily Note ---
PT Daily Note-Current Subjective Pt in w/c prior to tx, agrees to PT. Pt has just finished OT. No complaints of pain Appearance Pt in recliner post tx w/ call light, phone, tray, all needs met Mental Status Patient Orientation: Person, Place, Situation Transfers Functional [place] Measure 0=Not Assessed/NA 4=Minimal Assistance 1=Total Assistance 5=Supervision or Setup 2=Maximal Assistance 6=Modified [place] 3=Moderate Assistance 7=Complete IndependenceIRFPAI Quality Coding Scale 6 Independent with activity with or without an assistive device 5 Patient requires set up or clean up by helper. Patient completes activity by themselves 4 Supervision or touching assist (CGA). [place] provide cues , steadying assist 3 The helper provides less than half the effort to complete the activity 2 The helper provides more than half the effort to complete the activity 1 Dependent. The helper does all the effort to complete an activity 7 Patient refused to complete or attempt activity 9 The patient did not perform the activity before the current illness or injury 88 Not attempted due to Medical conditions or safety concerns Transfers (B, C, W/C) (FIM): 3 Scootin Supine to/from Sit: 3 Sit to/from Stand: 3 Bed to/from Chair: 3 Pt transfers bed<->chair w/ modA and sit<->stand modA. Pt needs cues for getting head low and butt high during sit->stand, as well as reaching back for armrest during stand->sit Weight Bearing Right Lower Extremity: Right Weight Bearing/Tolerated Left Lower Extremity: Left Weight Bearing/Tolerated Gait Training Does the Patient Walk?: Yes Gait (FIM): 1 Distance (FIM): 1=up to 49 ft Distance: 10' Gait Level of Assist: 2 Gait Persons Needed: 1 Gait Assistive Device: Walker Rodolfo Pt ambulates 10' w/ maxA using rodolfo-walker. Pt leans heavily to left side and occasionally puts the rodolfo-walker out too far in front of him. Needs cues to stand straight with his hips underneath him and lean on the walker. Wheelchair Training Does the Pt Use a Wheelchair?: Yes Wheelchair (FIM): 2 Wheelchair Distance: 0=386-46 ft Distance: 100' Wheelchair Level of Assist: 5 Type of Wheelchair: Manual Pt used W/C w/ SBA to gym. He uses only RUE and RLE for propulsion and is able to navigate around objects Exercises Seated Therapy Exercises: Reaching activity Seated Reps: 50 Pt performs sitting balance activity at EOB unsupported, CGA. Pt reaches for cones uses RUE, grabs the cones from various locations and places them in a separate location (ie across body, floor, overhead, etc). Standing balance with mirror directly in front of pt using parallel bars w/ Johan. Pt cued to look at mirror and keep body vertical and symmetrical 3x2min. NuStep Minutes: 10 NuStep Workload: 5 Treatments w/c training, gait training, sitting and standing balance, endurance Assessment Current Status: Fair Progress improved transfers w/ fewer cues needed. better standing balance and ability to stand vertically PT Short Term Goals Short Term Goals Time Frame: Apr 02, 2018 Transfers (B,C,W/C) (FIM): 3 Gait (FIM): 1 Gait Distance Comment: 20' Gait Level of Assist: 2 Gait Assistive Device: Cane Large Base Quad Wheelchair Distance: 150'x2 PT Conduit Helper Goals Mcc Goals PT Conduit Helper Goals Time Frame: Apr 16, 2018 Transfers (B,C,W/C) (FIM): 4 Sit to Lying (QC): 3 Lying-Sitting on Side/Bed(QC): 3 Sit to Stand (QC): 3 Rollin Roll Left to Right (QC): 3 Chair/Ybo-mm-Jjgpo Xfer(QC): 3 Car Transfer (QC): 3 Gait (FIM): 2 Distance: 50' Walk 10 feet (QC): 3 Walk 10ft-Uneven Surface(QC): 3 Walk 50ft with 2 Turns (QC): 3 Gait Level of Assist: 4 Gait Assistive Device: Cane Large Base Quad Wheelchair (FIM): 6 Distance: 200' Wheel 50 feet with 2 turns (QC: 6 PT Plan Problem List Problem List: Activity Tolerance, Functional Strength, Safety, Balance, Gait, Transfer, Bed Mobility Treatment/Plan Treatment Plan: Continue Plan of Care Treatment Plan: Bed Mobility, Concurrent Therapy, Education, Functional Activity Sukhdeep, Functional Strength, Group Therapy, Gait, Safety, Therapeutic Exercise, Transfers Treatment Duration: Apr 16, 2018 Frequency: At least 5 of 7 days/Wk (IRF) Estimated Hrs Per Day: 1.5 hours per day Patient and/or Family Agrees t: Yes Safety Risks/Education Patient Education: Gait Training, Transfer Techniques, Correct Positioning, Safety Issues Teaching Recipient: Patient Teaching Methods: Demonstration, Discussion Response to Teaching: Reinforcement Needed Time/GCodes Time In: 1100 Time Out: 1200 Total Billed Treatment Time: 60 Total Billed Treatment 1 visit GT 10' EX 50' CAMMY BLACK PT Apr 09, 2018 15:25
--- NOTE | 2018-04-09 15:35 | Therapy Group Daily Note ---
Therapy Daily Group Note Patient Education Topic Exercises, Other List Below (Education over Memory & Memory Strategies) Exercises LE Seated Exercise, Sit to/from Stand, UE Exercise Other/Notes Pt was propelled to PT/OT Group in Therapy [facility] in [facility]. Group consisted of Introduction (Name, Where you are from & Variety of Favorites Questions depending on on how dice was rolled), Socialization, Seated UE & LE Exercise, Education over Memory Strategies & Memory Activity. Pt participated in Group by standing to roll dice at chair, answering the corresponding question as well as completing Seated Ex and giving personal examples of Memory Strategies. Pt returns to room to rest at the end of Group with all needs met. Start Time: 13:00 Stop Time: 14:20 Total Billed Treatment Time: 80 Total Billed Treatment 1, GRP AUREA ESPARZA HOISTING LABORER Apr 09, 2018 15:35
--- NOTE | 2018-04-09 15:46 | Speech Therapy Daily Note ---
Speech Daily Progress Note Subjective Date Seen by Provider: Apr 09, 2018 Communication Comprehension: 6 Expression: 7 Social Cognition Social Interaction: 7 Problem Solvin Memory: 7 Speech Short Term Goals Short Term Goals Short Term Goals Pt will complete Oral Motor Exercises with min assist. Time Frame-ST week Speech Residential Goals Residential Goals Pt will tolerate regular diet with thin liquids with no s/s of aspiration. Time Frame: 3 weeks Speech-Plan Treatment Plan Treatment Duration: Mar 26, 2018 Frequency: 5 times per week Estimated Hrs Per Day: .5 hour per day Rehab Potential: MAGALY Dias Apr 09, 2018 15:45
--- NOTE | 2018-04-09 16:23 | Cardiology Progress Note ---
Cardiology SOAP Progress Note Subjective: No cardiac complaints. Objective: I&O/Vital Signs 04/10/18 04/10/18 08:42 16:41 Temp 97.6 Pulse 62 Resp 16 B/P (MAP) 146/71 (96) Pulse Ox 97 O2 Delivery Room Air Room Air 04/10/18 00:00 Intake Total 1030 ml Balance 1030 ml Weight (Pounds): 171 Weight (Ounces): 5.0 Weight (Calculated Kilograms): 77.862249 Constitutional: appears stated age, AAO x 3; No apparent distress; well- developed, well-nourished Respiratory: No accessory muscle use, No respiratory distress, No chest tender , No chest expansion is symmetric; chest is bilaterally symmetric; No lungs clear to percussion; lungs clear to auscultation; No crackles, No rhonchi, No rales, No stridor, No wheezing, No pleural rub, No other Cardiovascular: No regular rate-rhythm; irregularly irregular; No extra beats, No parasternal heave is noted, No JVD, No edema, No bradycardia, No tachycardia , No point of maximal impulse, No cardiac thrills are palpable; S1 and S2; No gallop/S3, No gallop/S4, No diastolic murmur; systolic murmur; No friction rub, No click, No other Gastrointestional: No tender, No soft, No round, No distended, No pulsatile mass, No organomegaly, No guarding, No rebound, No tenderness, No hernia, No mass, No audible bowel sounds, No abnormal bowel sounds, No abdominal bruits, No spleenomegaly, No other Extremities: No normal range of motion, No non-tender, No normal inspection, No pedal edema, No calf tenderness, No normal capillary refill, No pelvis stable , No calf tenderness, No inflammation, No pedal edema, No slow capillary refill , No swelling, No other, No abrasion, No clubbing, No cyanosis, No ecchymosis, No laceration, No no lower extremity edema bilateral, No significant edema, No tenderness, No wound Neurologic/Psychiatric: alert, oriented x 3, motor weakness Skin: No normal color, No warm/dry, No cyanosis, No cool, No diaphoresis, No damp, No ecchymosis, No jaundice, No mottled, No pallor, No rash, No tattoos/ piercings, No ulcerations, No rash on exposed areas, No ulcerations on exposed areas, No other Results/Procedures: Labs Laboratory Tests 04/09/18 20:34: Glucometer 160H 04/10/18 05:15: Glucometer 134H 04/10/18 11:01: Glucometer 296H 04/10/18 16:38: Glucometer 227H A/P: Assessment/Dx: Frequent thromboembolic event, Persistent Atrial fibrillation, CAD, CABG, Ischemic cardiomyopathy, Aortic stenosis, Chest pain, Pulmonary hypertension Plan: Chest pain: Responded to PPI. Acute coronary syndrome ruled out with serial negative troponin and negative EKG. Plavix. Continue Eliquis. CAD/CABG: Recent coronary angiography at [facility] showed patent grafts with distal disease not am and able to PCI. Medical therapy was recommended. Recurrent CVA/thromboembolic events: On Eliquis. Persistent atrial fibrillation on amiodarone and Eliquis. Also on diltiazem and beta sammie. Ischemic cardiomyopathy: LVEF 45 percent. On metoprolol. Pulmonary hypertension, continue to follow clinically. Thank you for your consultation. Please call me if you have any questions. Malcolm House MD, FACP, FACC, FSCAI, FHRS, CCDS Interventional Cardiology Cardiac Electrophysiology Vascular Medicine and Endovascular Interventions Boby HOUSE MD Apr 09, 2018 4:23 pm
[2018-04-09 16:50] VITALS: BP 127/65
[2018-04-09] MEDS: MELATONIN 3 MG TABLET PO SCH (21:30)
[2018-04-09] MEDS: POLYETHYLENE GLYCOL 17 GM (MIRALAX) PACK PO SCH (21:31)
[2018-04-09] MEDS: ATORVASTATIN 40 MG (LIPITOR) TABLET PO SCH (21:31)
[2018-04-10] MEDS: inSUlin ASPART (NovoLOG) 1 UNIT/0.01 ML (CHARGE PER UNIT) SC SCH ×4 (05:17→20:50)
[2018-04-10 05:58] VITALS: BP 115/69
--- NOTE | 2018-04-10 08:42 | ST Mod Barium Swallow ---
Speech Evaluation-General Medical Diagnosis CVA Onset Date: Mar 21, 2018 Therapy Diagnosis Therapy Diagnosis: Dysphagia Precautions Precautions: Aspiration Precautions/Isolations: Aspiration, Fall Prevention, Standard Precautions Referral Referring Physician: Dr. Fracisco Carlin Reason for Referral: Evaluation/Treatment Medical History Pertinent Medical History: Atrial Fib, DM Reviewed History: Yes Social History Home: Single Level Current Living Status: Spouse Speech Mod Barium Swallow Oral Motor Skills Lingual Protrusion: Normal Lingual ROM: Normal Velum: Abnormal Textures-Lateral View Lateral View Food Presentation: Thin Liquid via Spoon, [place] Liquid via Spoon , Pureed Solids, Mechanial Soft Solids, Regular Solids Oral Phase Labial Closure: No Impairment (WFL) Bolus Formation Pooling L/R: No Impairment (WFL) Bolus Formation Placement: Minimal Impairment Mastication Rotary Chew: No Impairment (WFL) Pharyngeal Phase Swallow Response: Moderate Impairment Base of Tongue: Moderate Impairment Epiglottic Movement: No Impairment (WFL) Laryngeal Elevation: Moderate Impairment Vallecular Residue: Moderate Piriform Sinus Residue: Moderate Aspiration Observations: Moderate Other Pharyngeal Observations: Aspirated on thin liquid. Summary/Impressions Dysphagic for thin liquids. Regular diet appropriate. Speech Short Term Goals Short Term Goals Short Term Goals Pt will complete Oral Motor Exercises with min assist. Time Frame-ST week Speech Fruit Loader Goals Halfway Goals Pt will tolerate regular diet with thin liquids with no s/s of aspiration. Time Frame: 3 weeks Speech-Plan Patient/Family Goals Patient/Family Goals: drink thin liquids. Treatment Plan Speech Therapy Treatment Plan: Continue Plan of Care continue POC Treatment Duration: Mar 26, 2018 Frequency: 5 times per week Estimated Hrs Per Day: .5 hour per day Rehab Potential: Fair Pt/Family Agrees to Plan: Yes Safety Risks/Education Teaching Recipient: Patient, Family Teaching Methods: Discussion Response to Teaching: Verbalize Understanding Time Speech Therapy Time In: 10:30 Speech Therapy Time Out: 11:00 Total Billed Time: 30 Billed Treatment Time 1, MOD MAGALY Moseley Apr 10, 2018 08:42
--- NOTE | 2018-04-10 08:58 | PM & R (SOAP) Progress Note ---
Subjective This was a face to face visit with the patient. Date Seen by Provider: Apr 10, 2018 Time Seen by Provider: 08:10 Subjective/Events-last exam Patient was seen in his room this AM Patient Mod assist for transfers Had MBS yesterday-shows aspiration risk ST continue with Dysphagia treatment Objective Physician Exam Last Set of Vital Signs Vital Signs Date Time Temp Pulse Resp B/P (MAP) Pulse Ox O2 Delivery O2 Flow Rate FiO2 04/10/18 05:58 97.2 61 16 115/69 (84) 96 Room Air Capillary Refill : I&O Intake and Output 04/10/18 00:00 Intake Total 1230 ml Balance 1230 ml Intake Oral 1230 ml # Voids 7 # Bowel Movements 1 General: Alert, Cooperative, No Acute Distress HEENT: Atraumatic, PERRLA, EOMI, Mucous Memb Moist/[place], Other (Dysphagia dysarthria ) Neck: Supple, No JVD Lungs: Clear to Auscultation, Other (Decreased breath sounds) Heart: Normal S1, Normal S2, Other (Systolic murmur at the left sternal border) Abdomen: Normal Bowel Sounds, Soft, No Tenderness Extremities: No Clubbing, No Cyanosis, No Edema Skin: No Rashes, No Breakdown Neuro: Other (Left HP Upper more then lower ) Psych/Mental Status: Mental Status NL, Mood NL Results Lab Data Laboratory Tests 04/07/18 10:59: Glucometer 291H 04/07/18 16:35: Glucometer 146H 04/07/18 20:20: Glucometer 237H 04/08/18 05:12: Glucometer 98 04/08/18 10:58: Glucometer 195H 04/08/18 16:24: Glucometer 219H 04/08/18 20:59: Glucometer 206H 04/09/18 05:32: Glucometer 117H 04/09/18 12:08: Glucometer 217H 04/09/18 16:49: Glucometer 267H 04/09/18 20:34: Glucometer 160H 04/10/18 05:15: Glucometer 134H Assessment/Plan Assessment and Plan RT cva with LHP and ddddysphagia Chronic A FIB controlled with med CAD Insomnia improed RT neck pain Voltaren gel and Lidoderm patch discussed with RN RT hip pain s/p fall improved Mild to moderate CHF compenstated Depression-start med see orders-Current meds reviewed Plan Continue PT/OT/ST Team Conference held 04-08-18 -see report for ful;l functional update and POC and ELOS F/U with Cardiology-Appreciate their notes Co-Morbidities that are continuing to impact the rehab process: (include details ) EMMY JULIEN MD Apr 10, 2018 08:58
[2018-04-10] MEDS ORDERED: PATIENT MAY USE OWN MED,SINGLE MED PO SCH (09:30)
[2018-04-10] MEDS ORDERED: AMMONIUM LACTATE 12% TOP PRN (09:30)
[2018-04-10] MEDS ORDERED: LIDOCAINE (LIDODERM) 5% PATCH TOP PRN (09:30)
[2018-04-10] MEDS: inSUlin DETERMIR 1 UNIT/0.01 ML (LEVEMIR) CHARGE PER UNIT SQ SCH ×2 (09:55→20:49)
[2018-04-10] MEDS: CLOPIDOGREL 75 MG (PLAVIX) TABLET PO SCH (10:02)
[2018-04-10] MEDS: LOSARTAN 25 MG (COZAAR) TAB PO SCH (10:02)
[2018-04-10] MEDS: AMIODARONE 200 MG (CORDARONE) TAB PO SCH ×2 (10:02→20:49)
[2018-04-10] MEDS: APIXABAN 5 MG (ELIQUIS) TABLET PO SCH ×2 (10:02→20:49)
[2018-04-10] MEDS: FAMOTIDINE 20 MG (PEPCID) TABLET PO SCH ×2 (10:03→20:49)
[2018-04-10] MEDS: FLUTICASONE NASAL SPRAY (FLONASE) 16 GM BTL NS SCH (10:06)
[2018-04-10] MEDS: LORATADINE (CLARITIN) 10 MG TAB PO SCH (10:07)
[2018-04-10] MEDS: SENNA W/DOCUSATE (SENOKOT S) TABLET PO SCH ×2 (10:07→20:49)
--- NOTE | 2018-04-10 11:05 | Occupational Ther Daily Note ---
OT Current Status-Daily Note Subjective Pt alert, lying in bed. Visitors and family present. Pt agrees to therapy. No c/o pain. Mental Status/Objective Patient Orientation: Person, Place, Time, Situation Functional [place] Measure 0=Not Assessed/NA 4=Minimal Assistance 1=Total Assistance 5=Supervision or Setup 2=Maximal Assistance 6=Modified [place] 3=Moderate Assistance 7=Complete [place] ADL-Treatment Functional [place] Measure 0=Not Assessed/NA 4=Minimal Assistance 1=Total Assistance 5=Supervision or Setup 2=Maximal Assistance 6=Modified [place] 3=Moderate Assistance 7=Complete IndependenceIRFPAI Quality Coding Scale 6 Independent with activity with or without an assistive device 5 Patient requires set up or clean up by helper. Patient completes activity by themselves 4 Supervision or touching assist (CGA). [place] provide cues , steadying assist 3 The helper provides less than half the effort to complete the activity 2 The helper provides more than half the effort to complete the activity 1 Dependent. The helper does all the effort to complete an activity 7 Patient refused to complete or attempt activity 9 The patient did not perform the activity before the current illness or injury 88 Not attempted due to Medical conditions or safety concerns Grooming (FIM): 6 (Sitting at sink, pt able to complete by self.) Oral Hygiene (QC): 6 Bathing (FIM): 5 (SBA with set up using shower chair with cutout and hand held shower.) Bathing Location: L Arm, R Arm, L Upper Leg, R Upper Leg, L Lower Leg ( including foot), R Lower Leg (including foot), Chest, Abdomen, Buttocks, Perineal Area Shower/Bathe Self (QC): 4 Upper Body (FIM): 5 (Set up then pt uses one handed techniques for dressing.) Upper Body Dressing (QC): 5 Lower Body Dressing (FIM): 3 (Pt able to cross LE over knee to don/doff lower body clothing with verbal cues and close SBA. Mod assist to stand while pt hikes pants over R hip and assist with L hips.) Lower Body Dressing (QC): 2 On/Off Footwear (QC): 4 Toileting (FIM): 3 (Pt stated he felt like he needed to urinate. Pt able to hike pants down over hips with mod A to stand then cleanses self while sitting on shower chair with cutout with SBA.) Toileting Hygiene (QC): 3 Transfers (B, C, W/C) (FIM): 3 Toilet Transfer (QC): 2 Shower Transfer(FIM): 1 Pt continues to have difficulty with dynamic sitting balance when using R arm and crossing midline to reach L LE. Pt needs shower chair for safety, unable to use bench for shower. After therapy, pt sitting in w/c with call light/ phone in reach. PASTRY MIXER took over care. All needs met in room. OT Short Term Goals Short Term Goals Time Frame: Apr 09, 2018 Eating(FIM): 6 Grooming(FIM): 5 Bathing(FIM): 4 Upper Body Dressing(FIM): 4 Lower Body Dressing(FIM): 3 Toileting(FIM): 4 Transfers (B,C,W/C) (FIM): 3 Toilet/Commode Transfer(FIM): 4 Shower Transfer(FIM): 4 Additional Short Term Goals: 1-Demonstrate ADL Tasks, 2-Verbalize Understanding , 3-ImproveStrength/Sukhdeep 1=Demonstrate adherence to instructed precautions during ADL tasks. 2=Patient will verbalize/demonstrate understanding of assistive devices/ modifications for ADL. 3=Patient will improve strength/tolerance for activity to enable patient to perform ADL's. OT Alf Goals Alf Goals Time Frame: Apr 23, 2018 Eating (FIM): 6 Eating (QC): 6 Groomin Oral Hygiene (QC): 6 Bathing(FIM): 5 Shower/Bathe Self (QC): 5 Upper Body Dressing(FIM): 5 Upper Body Dressing (QC): 5 Lower Body Dressing(FIM): 5 Lower Body Dressing (QC): 5 On/Off Footwear (QC): 5 Toileting(FIM): 6 Toileting Hygiene (QC): 6 Transfers (B,C,W/C) (FIM): 6 Toilet/Commode Transfer(FIM): 6 Toilet/Commode Transfer (QC): 6 Shower Transfer(FIM): 5 Additional Goals: 1-Demonstrate ADL Tasks, 2-Verbalize Understanding, 3- ImproveStrength/Sukhdeep 1=Demonstrate adherence to instructed precautions during ADL tasks. 2=Patient will verbalize/demonstrate understanding of assistive devices/ modifications for ADL. 3=Patient will improve strength/tolerance for activity to enable patient to perform ADL's. OT Education/Plan Discharge Recommendations Plan/Recommendations: Continue POC Treatment Plan/Plan of Care Patient would benefit from OT for education, treatment and training to promote independence in ADL's, mobility, safety and/or upper extremity function for ADL' s. Plan of Care: ADL Retraining, Functional Mobility, Group Exercise/Act as Ind, UE Funct Exercise/Act Treatment Duration: Apr 23, 2018 Frequency: At least 5 of 7 days/Wk (IRF) Estimated Hrs Per Day: 1.5 hours per day Agreement: Yes Rehab Potential: Fair Time/GCodes Start Time: 09:45 Stop Time: 10:30 Total Time Billed (hr/min): 45 Billed Treatment Time 1 visit-ADL 3 (45 min) JIMMY DHILLON Apr 10, 2018 11:05
--- NOTE | 2018-04-10 12:03 | Physical Therapy Daily Note ---
PT Daily Note-Current Subjective Pt in w/c pre tx, agrees to PT. No complaints of pain. Appearance Pt in bed post tx w/ call light, phone, tray, all needs met Mental Status Patient Orientation: Person, Place, Time Transfers Functional [place] Measure 0=Not Assessed/NA 4=Minimal Assistance 1=Total Assistance 5=Supervision or Setup 2=Maximal Assistance 6=Modified [place] 3=Moderate Assistance 7=Complete IndependenceIRFPAI Quality Coding Scale 6 Independent with activity with or without an assistive device 5 Patient requires set up or clean up by helper. Patient completes activity by themselves 4 Supervision or touching assist (CGA). [place] provide cues , steadying assist 3 The helper provides less than half the effort to complete the activity 2 The helper provides more than half the effort to complete the activity 1 Dependent. The helper does all the effort to complete an activity 7 Patient refused to complete or attempt activity 9 The patient did not perform the activity before the current illness or injury 88 Not attempted due to Medical conditions or safety concerns Transfers (B, C, W/C) (FIM): 3 Scootin Supine to/from Sit: 3 Sit to/from Stand: 3 Bed to/from Chair: 3 Pt demonstrates increased independence w/ transfers, improving from maxA to modA. Decreased cues needed for hand placement and positioning. Weight Bearing Right Lower Extremity: Right Weight Bearing/Tolerated Left Lower Extremity: Left Weight Bearing/Tolerated Gait Training Does the Patient Walk?: Yes Gait (FIM): 1 Distance (FIM): 1=up to 49 ft Distance: 3x40' Gait Level of Assist: 3 Gait Persons Needed: 1 Gait Assistive Device: Walker Rodolfo Pt ambulates 40' w/ modA using hemiwalker, cues needed for standing up straight to avoid flexed posture and LOB. Pt uses step-to gait pattern w/ occasional step -thru. Wheelchair Training Does the Pt Use a Wheelchair?: Yes Wheelchair (FIM): 5 Wheelchair Distance: 3=150 ft Distance: 150'x2 Wheelchair Level of Assist: 5 Type of Wheelchair: Manual Pt uses only RLE and RUE for propulsion and direction of w/c to/from gym w/ SBA , occasionally needs cues for direction and positioning for transfers. Exercises Supine Ex: Bridging, Heel Slides, Short Arc Quads, Hip abd/add Supine Reps: 20 Seated Therapy Exercises: Sit to stand Seated Reps: 5 Pt needs cues and support to avoid hip ER and abduction during bridging and hamstring curls. Pt needs assistance and cues for controlling/lowering LLE during SAQs and hamstring curls. Tends to just let leg flop onto mat. Treatments gait and mobility training, transfer training, functional strengthening Assessment Current Status: Fair Progress improved/decreased assistance and cues needed for transfers, better LLE WB and strength during sit<->stand PT Short Term Goals Short Term Goals Time Frame: Apr 02, 2018 Transfers (B,C,W/C) (FIM): 3 Gait (FIM): 1 Gait Distance Comment: 20' Gait Level of Assist: 2 Gait Assistive Device: Cane Large Base Quad Wheelchair Distance: 100' PT Intermediate Goals Intermediate Goals PT Intermediate Goals Time Frame: Apr 16, 2018 Transfers (B,C,W/C) (FIM): 4 Sit to Lying (QC): 3 Lying-Sitting on Side/Bed(QC): 3 Sit to Stand (QC): 3 Rollin Roll Left to Right (QC): 3 Chair/[id number] Xfer(QC): 3 Car Transfer (QC): 3 Gait (FIM): 2 Distance: 50' Walk 10 feet (QC): 3 Walk 10ft-Uneven Surface(QC): 3 Walk 50ft with 2 Turns (QC): 3 Gait Level of Assist: 4 Gait Assistive Device: Cane Large Base Quad Wheelchair (FIM): 6 Distance: 200' Wheel 50 feet with 2 turns (QC: 6 PT Plan Problem List Problem List: Activity Tolerance, Functional Strength, Safety, Balance, Gait, Transfer, Bed Mobility Treatment/Plan Treatment Plan: Continue Plan of Care Treatment Plan: Bed Mobility, Concurrent Therapy, Education, Functional Activity Sukhdeep, Functional Strength, Group Therapy, Gait, Safety, Therapeutic Exercise, Transfers Treatment Duration: Apr 16, 2018 Frequency: At least 5 of 7 days/Wk (IRF) Estimated Hrs Per Day: 1.5 hours per day Patient and/or Family Agrees t: Yes Safety Risks/Education Patient Education: Gait Training, Transfer Techniques, Correct Positioning, W/ C Management, Safety Issues Teaching Recipient: Patient Teaching Methods: Demonstration, Discussion Response to Teaching: Reinforcement Needed Time/GCodes Time In: 1100 Time Out: 1200 Total Billed Treatment Time: 60 Total Billed Treatment 1 visit [facility] 10' GT 30' EX 20' YE VELASCO PT Apr 10, 2018 12:03
--- NOTE | 2018-04-10 12:24 | Progress Note-Hospitalist ---
Subjective HPI/CC On Admission Date Seen by Provider: Apr 10, 2018 Time Seen by Provider: 11:30 Mr. Guerin is a frail 73-year-old white male who developed abrupt onset of left upper quadrant pain on 18 March. 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 He was discharged with pain medication. On [address] scanning of the chest with contrast for evaluation of subcarinal fullness. It was felt to represent adenopathy a little more prominent than a previous CT scan of the chest in 2012 per radiologist report. No pulmonary abnormalities were reported. He also had significant cholelithiasis without symptoms to suggest cholecystitis. Sometime shortly thereafter he developed left-sided weakness and was transferred to [place] where he was noted to have a right sided CVA without evidence for significant extracranial vascular disease. He ultimately underwent cardiac catheterization as well which reportedly revealed mild hypokinesis with estimated ejection fraction of 40 percent he did have 3 patent grafts he had some disease in the PDA distal to his RCA graft and also had some disease in the obtuse marginal system that was not bypassed. Medical management was opted for however and the patient did not undergo any endovascular-based therapy. He is transferred back to our rehabilitation unit to continue redilatation for deficits that include left-sided hemiparesis as well as dysarthria and mild dysphasia. He reports that he has been swallowing without coughing on thickened liquids and solids. He denies abdominal pain but does note some sores in his mouth. He states that while he still has significant weakness he has had improvement in movement of the left upper extremity and left lower extremity. The left lower extremity is been affected to a lesser degree than left upper extremity. Past medical history seen for long-standing poorly controlled insulin requiring type II diabetes due to poor compliance with bolus therapy for many years. 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 For this reason he had not been on anticoagulant therapy for known underlying persistent atrial fibrillation. He had no previous known history of thromboembolic disease. He has been placed on eliquis and reports no change in vision and also denies ocular pain. He also was diagnosed with urinary tract infection and discharged on Levaquin to our facility. He also has known significant peripheral neuropathy and pressure ulceration with past osteomyelitis of the great toe requiring partial amputation on the left. In the past she's had multiple foot ulcers but is been some time since he last required treatment for diabetic-related foot ulceration. Subjective/Events-last exam Prior to interviewing the patient and I spoke with his who was noted improvement in his mood over the past 48 hours. His by mouth intake is improved as well. Physical therapy reports slow improvement in left-sided weakness. With standby assistance patient has been walking short distances with the use of a platform type cane which is an improvement. He admits that noting improvement as well. He does report returned her neuropathic pain last night he normally uses lidocaine patches but there was not an order for one. He does have his own patches present. It involves both lower extremities was I recall right foot greater than left. He is not having any associated back pain. Objective Exam Vital Signs Vital Signs Date Time Temp Pulse Resp B/P (MAP) Pulse Ox O2 Delivery O2 Flow Rate FiO2 04/10/18 08:42 Room Air 04/10/18 05:58 97.2 61 16 115/69 (84) 96 Capillary Refill : General Appearance: No Apparent Distress, Chronically ill, Thin Respiratory: Chest Non Tender, Lungs Clear, Normal Breath Sounds, No Accessory Muscle Use, No Respiratory Distress Cardiovascular: No Gallop, No JVD, Systolic Murmur (2/6 noted over the aortic outflow tract unchanged no diastolic murmurs appreciated.), Irregularly Irregular Gastrointestinal: Normal Bowel Sounds, No Organomegaly, No Pulsatile Mass, Non Tender, Soft Extremity: Normal Capillary Refill, No Calf Tenderness, Pedal Edema (Trace no ulceration or erythema noted. Absent sensation to the lower tibia bilaterally unchanged) Neurologic/Psychiatric: Alert, Oriented x3, Other (Slowly improving left-sided hemiparesis left arm worse than left leg swallowing test does reveal aspiration) Results/Procedures Lab Patient resulted labs reviewed. Assessment/Plan Assessment and Plan Assess & Plan/Chief Complaint 1. 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 Considering splenic infarct likely embolic as well we did discuss the risk of anticoagulant therapy and recurrent hemorrhage versus benefits. In my estimation benefits significantly outweigh risk as she would be highly likely to continue to have embolic symptoms. The downside would be retinal hemorrhages would likely lead to blindness in the affected eye. Patient agrees with continuing anticoagulant therapy.No change in vision reported. Barium base swallowing study does reveal evidence for small volume aspiration and vallecular pooling. Patient has no evidence for aspiration pneumonitis at this time continuing to work with speech therapy. 2. Known significant coronary artery disease with mild LV systolic dysfunction continue baby aspirin daily. 3. Type II diabetes mellitus insulin requiring blood sugars under very good control he had one level of 63 this morning and his Levemir was held we will decrease to 10 units twice a day. 4. Thrush resolved will DC nystatin.. 5. Chronic atrial fibrillation currently rate controlled. 6. Reported urinary tract infection with resolution on repeat UA.. 7. Carinal fullness possible adenopathy considering the patient's frailty and multiple medical symptoms we will see about obtaining PET scan as an outpatient. 8. Depression we discussed the currently there is a reactive component but I'm also concerned about a direct endogenous component secondary to his stroke. After discussion of antidepressant therapy the patient is tollerating L Lexapro 10 mg daily. Family and patient have noted improvement in mood and there has been improvement with appetite. Small volume aspiration does not appear to be a major limiting factor in by mouth intake.. Clinical Quality Measures DVT/VTE Risk/Contraindication: Risk Factor Score Per Nursin RFS Level Per Nursing on Admit: 4+=Very High BEVERLY FERNANDES MD Apr 10, 2018 12:24
--- NOTE | 2018-04-10 14:53 | Therapy Group Daily Note ---
Therapy Daily Group Note Patient Education Topic Fall Prevention, Other List Below Exercises UE Exercise Other/Notes Pt maneuvered w/c to OT/PT group. Group consisted of introductions (name, place living, what did you want to be when you grew up), socialization, pt lead UE seated exercise, community safety bingo and fall prevention. Pt introduced self appropriately then actively listened to peers. Pt contributed to discussions about educational topics. Pt engaged peers in conversations. Pt verbalized understanding of educational topics. Pt was able to complete UE exercises without difficulty using R UE, attempted with L UE. Pt maneuvered w/ c to room and laid in bed after group. Call light/phone in reach. All needs met in room. Start Time: 13:00 Stop Time: 14:15 Total Billed Treatment Time: 75 Total Billed Treatment 1-GRP JIMMY DHILLON Apr 10, 2018 14:53
--- NOTE | 2018-04-10 15:35 | Speech Therapy Daily Note ---
Speech Daily Progress Note Subjective Date Seen by Provider: Apr 10, 2018 Time Seen by Provider: 10:30 Pt appears "down" due to Video Swallow results. Pain Numeric Pain Scale: 0-No Pain Objective Pt completes dysphagia exercises with supervision. Assessment Assessment Current Status: Fair Progress Treatment Plan Continue Plan of Care Communication Comprehension: 6 Expression: 7 Social Cognition Social Interaction: 7 Problem Solvin Memory: 7 Speech Short Term Goals Short Term Goals Short Term Goals Pt will complete Oral Motor Exercises with min assist. Time Frame-ST week Speech Muffle Worker Goals Skilled Nursing Goals Pt will tolerate regular diet with thin liquids with no s/s of aspiration. Time Frame: 3 weeks Speech-Plan Patient/Family Goals Patient/Family Goals: to drink thin liquids Treatment Plan Speech Therapy Treatment Plan: Continue Plan of Care Pt appears depressed. Treatment Duration: Mar 26, 2018 Frequency: 5 times per week Estimated Hrs Per Day: .5 hour per day Rehab Potential: Fair Pt/Family Agrees to Plan: Yes Safety Risks/Education Teaching Methods: Discussion Response to Teaching: Verbalize Understanding Time Speech Therapy Time In: 10:30 Speech Therapy Time Out: 11:00 Total Billed Time: 30 Billed Treatment Time 1, DYST No MAGALY GARAY Apr 10, 2018 15:35
[2018-04-10 16:41] VITALS: BP 146/71
[2018-04-10] MEDS: POLYETHYLENE GLYCOL 17 GM (MIRALAX) PACK PO SCH (20:39)
[2018-04-10] MEDS: MELATONIN 3 MG TABLET PO SCH (20:49)
[2018-04-10] MEDS: ATORVASTATIN 40 MG (LIPITOR) TABLET PO SCH (20:49)
[2018-04-11] MEDS: inSUlin ASPART (NovoLOG) 1 UNIT/0.01 ML (CHARGE PER UNIT) SC SCH ×4 (05:15→21:54)
[2018-04-11 05:26] VITALS: BP 114/55
--- NOTE | 2018-04-11 08:21 | PM & R (SOAP) Progress Note ---
Subjective This was a face to face visit with the patient. Date Seen by Provider: Apr 11, 2018 Time Seen by Provider: 07:25 Subjective/Events-last exam Patient was seen in his room this AM Patient Mod assist for transfers Objective Physician Exam Last Set of Vital Signs Vital Signs Date Time Temp Pulse Resp B/P (MAP) Pulse Ox O2 Delivery O2 Flow Rate FiO2 04/11/18 05:26 99.0 56 16 114/55 (74) 97 Room Air Capillary Refill : I&O Intake and Output 04/11/18 00:00 Intake Total 1150 ml Balance 1150 ml Intake Oral 1150 ml # Voids 7 # Bowel Movements 2 General: Alert, Cooperative, No Acute Distress HEENT: Atraumatic, PERRLA, EOMI, Mucous Memb Moist/[place], Other (Dysphagia dysarthria ) Neck: Supple, No JVD Lungs: Clear to Auscultation, Other (Decreased breath sounds) Heart: Normal S1, Normal S2, Other (Systolic murmur at the left sternal border) Abdomen: Normal Bowel Sounds, Soft, No Tenderness Extremities: No Clubbing, No Cyanosis, No Edema Skin: No Rashes, No Breakdown Neuro: Other (Left HP Upper more then lower ) Psych/Mental Status: Mental Status NL, Mood NL Results Lab Data Laboratory Tests 04/08/18 10:58: Glucometer 195H 04/08/18 16:24: Glucometer 219H 04/08/18 20:59: Glucometer 206H 04/09/18 05:32: Glucometer 117H 04/09/18 12:08: Glucometer 217H 04/09/18 16:49: Glucometer 267H 04/09/18 20:34: Glucometer 160H 04/10/18 05:15: Glucometer 134H 04/10/18 11:01: Glucometer 296H 04/10/18 16:38: Glucometer 227H 04/10/18 20:30: Glucometer 219H 04/11/18 05:13: Glucometer 135H Assessment/Plan Assessment and Plan RT Cva with Left HP and Dysphagia Chronic A FIB controlled with med CAD Insomnia improved Depression placed on med Rt Neck pain impored with med Mild to moderate Cardiology following CHF compensated Plan Continue PT/OT/ST Team Conference 04-15-18 F/U with Hospitalist service and cardiology service prn Co-Morbidities that are continuing to impact the rehab process: (include details ) EMMY JULIEN MD Apr 11, 2018 08:21
[2018-04-11] MEDS: APIXABAN 5 MG (ELIQUIS) TABLET PO SCH ×2 (08:42→21:53)
[2018-04-11] MEDS: LOSARTAN 25 MG (COZAAR) TAB PO SCH (08:42)
[2018-04-11] MEDS: AMIODARONE 200 MG (CORDARONE) TAB PO SCH ×2 (08:43→21:53)
[2018-04-11] MEDS: CLOPIDOGREL 75 MG (PLAVIX) TABLET PO SCH (08:43)
[2018-04-11] MEDS: FAMOTIDINE 20 MG (PEPCID) TABLET PO SCH ×2 (08:43→21:53)
[2018-04-11] MEDS: inSUlin DETERMIR 1 UNIT/0.01 ML (LEVEMIR) CHARGE PER UNIT SQ SCH ×2 (08:44→21:54)
[2018-04-11] MEDS: LORATADINE (CLARITIN) 10 MG TAB PO SCH (08:48)
[2018-04-11] MEDS: SENNA W/DOCUSATE (SENOKOT S) TABLET PO SCH ×2 (08:49→22:09)
[2018-04-11] MEDS: FLUTICASONE NASAL SPRAY (FLONASE) 16 GM BTL NS SCH (09:28)
--- NOTE | 2018-04-11 10:48 | Physical Therapy Daily Note ---
PT Daily Note-Current Subjective Pt in bed, agreeable to stand at EOB. Pt states "The last time they sent one person after me she dropped me on the floor". Agreeable to work with this PT with reassurance. Mental Status Patient Orientation: Person, Situation Transfers Functional [place] Measure 0=Not Assessed/NA 4=Minimal Assistance 1=Total Assistance 5=Supervision or Setup 2=Maximal Assistance 6=Modified [place] 3=Moderate Assistance 7=Complete IndependenceIRFPAI Quality Coding Scale 6 Independent with activity with or without an assistive device 5 Patient requires set up or clean up by helper. Patient completes activity by themselves 4 Supervision or touching assist (CGA). [place] provide cues , steadying assist 3 The helper provides less than half the effort to complete the activity 2 The helper provides more than half the effort to complete the activity 1 Dependent. The helper does all the effort to complete an activity 7 Patient refused to complete or attempt activity 9 The patient did not perform the activity before the current illness or injury 88 Not attempted due to Medical conditions or safety concerns Scootin Supine to/from Sit: 4 Sit to/from Stand: 3 Sit to Lying (QC): 3 Sit to Stand (QC): 3 Weight Bearing Right Lower Extremity: Right Weight Bearing/Tolerated Left Lower Extremity: Left Weight Bearing/Tolerated Exercises Standing: Sit to Stand, Weight shifts Sit<->stand x 3 trials at EOB. First trial Pt stood for grossly 1', second and third trials grossly 30-40". Pt pushes to (L), able to correct momentarily with skilled VCS. On second trial, multiple episodes of (L) knee buckling but Pt able to recover with mod A x 1. On third trial, Pt with flexed posture and weight shifted forward, mod A x 1 to maintain balance with limited correction with VCS. Returned to bed with needs met, alarm activated. Treatments Sit<->stand and weightshifts in standing. Assessment Current Status: Fair Progress Pt tolerated fair. Fatigued after initial attempt with increased (L) knee buckling. PT Short Term Goals Short Term Goals Time Frame: Apr 02, 2018 Transfers (B,C,W/C) (FIM): 3 Gait (FIM): 1 Gait Distance Comment: 20' Gait Level of Assist: 2 Gait Assistive Device: Cane Large Base Quad Wheelchair Distance: 150'x2 PT Alf Goals Alf Goals PT Food Safety Director Goals Time Frame: Apr 16, 2018 Transfers (B,C,W/C) (FIM): 4 Sit to Lying (QC): 3 Lying-Sitting on Side/Bed(QC): 3 Sit to Stand (QC): 3 Rollin Roll Left to Right (QC): 3 Chair/Emo-fv-Eqepc Xfer(QC): 3 Car Transfer (QC): 3 Gait (FIM): 2 Distance: 50' Walk 10 feet (QC): 3 Walk 10ft-Uneven Surface(QC): 3 Walk 50ft with 2 Turns (QC): 3 Gait Level of Assist: 4 Gait Assistive Device: Cane Large Base Quad Wheelchair (FIM): 6 Distance: 200' Wheel 50 feet with 2 turns (QC: 6 PT Plan Problem List Problem List: Activity Tolerance, Functional Strength, Safety, Balance, Gait, Transfer, Bed Mobility Treatment/Plan Treatment Plan: Continue Plan of Care Treatment Plan: Bed Mobility, Concurrent Therapy, Education, Functional Activity Sukhdeep, Functional Strength, Group Therapy, Gait, Safety, Therapeutic Exercise, Transfers Treatment Duration: Apr 16, 2018 Frequency: At least 5 of 7 days/Wk (IRF) Estimated Hrs Per Day: 1.5 hours per day Patient and/or Family Agrees t: Yes Safety Risks/Education Patient Education: Transfer Techniques, Safety Issues Teaching Recipient: Patient Teaching Methods: Discussion Response to Teaching: Reinforcement Needed Time/GCodes Time In: 1019 Time Out: 1034 Total Billed Treatment Time: 15 Total Billed Treatment 1, FA x 15' G Codes Necessary: BROOK Gonzáles DPTerrie Apr 11, 2018 10:48
[2018-04-11 17:43] VITALS: BP 118/70
[2018-04-11] MEDS: MELATONIN 3 MG TABLET PO SCH (21:53)
[2018-04-11] MEDS: ATORVASTATIN 40 MG (LIPITOR) TABLET PO SCH (21:53)
[2018-04-11] MEDS: POLYETHYLENE GLYCOL 17 GM (MIRALAX) PACK PO SCH (22:09)
[2018-04-12] MEDS: inSUlin ASPART (NovoLOG) 1 UNIT/0.01 ML (CHARGE PER UNIT) SC SCH ×4 (05:18→21:03)
[2018-04-12 05:48] VITALS: BP 129/70
[2018-04-12 10:40] VITALS: BP 126/61
[2018-04-12] MEDS: FAMOTIDINE 20 MG (PEPCID) TABLET PO SCH ×2 (10:43→21:02)
[2018-04-12] MEDS: APIXABAN 5 MG (ELIQUIS) TABLET PO SCH ×2 (10:43→21:02)
[2018-04-12] MEDS: LOSARTAN 25 MG (COZAAR) TAB PO SCH (10:43)
[2018-04-12] MEDS: CLOPIDOGREL 75 MG (PLAVIX) TABLET PO SCH (10:43)
[2018-04-12] MEDS: SENNA W/DOCUSATE (SENOKOT S) TABLET PO SCH ×2 (10:43→19:38)
[2018-04-12] MEDS: AMIODARONE 200 MG (CORDARONE) TAB PO SCH ×2 (10:43→21:02)
[2018-04-12] MEDS: LORATADINE (CLARITIN) 10 MG TAB PO SCH (10:43)
[2018-04-12] MEDS: inSUlin DETERMIR 1 UNIT/0.01 ML (LEVEMIR) CHARGE PER UNIT SQ SCH ×2 (10:44→21:03)
[2018-04-12] MEDS: FLUTICASONE NASAL SPRAY (FLONASE) 16 GM BTL NS SCH (10:49)
[2018-04-12 18:17] VITALS: BP 113/46
[2018-04-12] MEDS: POLYETHYLENE GLYCOL 17 GM (MIRALAX) PACK PO SCH (19:38)
[2018-04-12] MEDS: MELATONIN 3 MG TABLET PO SCH (21:02)
[2018-04-12] MEDS: ATORVASTATIN 40 MG (LIPITOR) TABLET PO SCH (21:02)
[2018-04-13] MEDS: inSUlin ASPART (NovoLOG) 1 UNIT/0.01 ML (CHARGE PER UNIT) SC SCH ×4 (06:40→20:44)
[2018-04-13 06:43] VITALS: BP 117/54
[2018-04-13 08:33] VITALS: BP 130/66
[2018-04-13] MEDS: FAMOTIDINE 20 MG (PEPCID) TABLET PO SCH ×2 (08:39→20:06)
[2018-04-13] MEDS: AMIODARONE 200 MG (CORDARONE) TAB PO SCH ×2 (08:39→20:08)
[2018-04-13] MEDS: LOSARTAN 25 MG (COZAAR) TAB PO SCH (08:40)
[2018-04-13] MEDS: FLUTICASONE NASAL SPRAY (FLONASE) 16 GM BTL NS SCH (08:40)
[2018-04-13] MEDS: LORATADINE (CLARITIN) 10 MG TAB PO SCH (08:40)
[2018-04-13] MEDS: APIXABAN 5 MG (ELIQUIS) TABLET PO SCH ×2 (08:40→20:06)
[2018-04-13] MEDS: CLOPIDOGREL 75 MG (PLAVIX) TABLET PO SCH (08:40)
[2018-04-13] MEDS: SENNA W/DOCUSATE (SENOKOT S) TABLET PO SCH ×2 (08:40→20:06)
[2018-04-13] MEDS: inSUlin DETERMIR 1 UNIT/0.01 ML (LEVEMIR) CHARGE PER UNIT SQ SCH ×2 (08:41→20:44)
--- NOTE | 2018-04-13 09:00 | Physical Therapy Daily Note ---
PT Daily Note-Current Subjective Patient in bed pre tx, agrees to PT, no complaints of pain. Patient seems more lethargic today. Mental Status Patient Orientation: Person, Place, Situation Transfers Functional [place] Measure 0=Not Assessed/NA 4=Minimal Assistance 1=Total Assistance 5=Supervision or Setup 2=Maximal Assistance 6=Modified [place] 3=Moderate Assistance 7=Complete IndependenceIRFPAI Quality Coding Scale 6 Independent with activity with or without an assistive device 5 Patient requires set up or clean up by helper. Patient completes activity by themselves 4 Supervision or touching assist (CGA). [place] provide cues , steadying assist 3 The helper provides less than half the effort to complete the activity 2 The helper provides more than half the effort to complete the activity 1 Dependent. The helper does all the effort to complete an activity 7 Patient refused to complete or attempt activity 9 The patient did not perform the activity before the current illness or injury 88 Not attempted due to Medical conditions or safety concerns Transfers (B, C, W/C) (FIM): 3 Scootin Rollin Supine to/from Sit: 4 Sit to/from Stand: 3 Bed to/from Chair: 3 Weight Bearing Right Lower Extremity: Right Weight Bearing/Tolerated Left Lower Extremity: Left Weight Bearing/Tolerated Gait Training Gait (FIM): 2 Distance: 50'x2, 60' Gait Level of Assist: 3 Gait Persons Needed: 1 Gait Assistive Device: Walker Rodolfo Mod assist for weight shifting and balance. Patient is able to advance his left leg without assist but has knee hyperextension. Wheelchair Training Does the Pt Use a Wheelchair?: Yes Wheelchair (FIM): 5 Distance: 150'2 Type of Wheelchair: Manual Exercises sit to shredding machine operator parallel bars 3 sets of 5, sidestepping in parallel bars 8'x12 Treatments bed mobility and transfers, ambulation, functional activities Assessment Current Status: Fair Progress slowly improving balance PT Short Term Goals Short Term Goals Time Frame: Apr 02, 2018 Transfers (B,C,W/C) (FIM): 3 Gait (FIM): 1 Gait Distance Comment: 20' Gait Level of Assist: 2 Gait Assistive Device: Cane Large Base Quad Wheelchair Distance: 150'x2 PT Half-Way Goals Half-Way Goals PT Half-Way Goals Time Frame: Apr 16, 2018 Transfers (B,C,W/C) (FIM): 4 Sit to Lying (QC): 3 Lying-Sitting on Side/Bed(QC): 3 Sit to Stand (QC): 3 Rollin Roll Left to Right (QC): 3 Chair/Hrn-ox-Xvnde Xfer(QC): 3 Car Transfer (QC): 3 Gait (FIM): 2 Distance: 50' Walk 10 feet (QC): 3 Walk 10ft-Uneven Surface(QC): 3 Walk 50ft with 2 Turns (QC): 3 Gait Level of Assist: 4 Gait Assistive Device: Cane Large Base Quad Wheelchair (FIM): 6 Distance: 200' Wheel 50 feet with 2 turns (QC: 6 PT Plan Problem List Problem List: Activity Tolerance, Functional Strength, Safety, Balance, Gait, Transfer, Bed Mobility Treatment/Plan Treatment Plan: Continue Plan of Care Treatment Plan: Bed Mobility, Concurrent Therapy, Education, Functional Activity Sukhdeep, Functional Strength, Group Therapy, Gait, Safety, Therapeutic Exercise, Transfers Treatment Duration: Apr 16, 2018 Frequency: At least 5 of 7 days/Wk (IRF) Estimated Hrs Per Day: 1.5 hours per day Patient and/or Family Agrees t: Yes Safety Risks/Education Patient Education: Gait Training, Transfer Techniques, Correct Positioning, W/ C Management, Safety Issues Teaching Recipient: Patient Teaching Methods: Demonstration, Discussion Response to Teaching: Reinforcement Needed Time/GCodes Time In: 0815 Time Out: 0900 Total Billed Treatment Time: 45 Total Billed Treatment 1 visit GT 30' FA 15' CAMMY BLACK PT Apr 13, 2018 08:59
--- NOTE | 2018-04-13 11:54 | Occupational Ther Daily Note ---
OT Current Status-Daily Note Subjective Pt alert, lying in bed. No c/o pain. Pt agrees to therapy. Mental Status/Objective Patient Orientation: Person, Place, Time, Situation Functional [place] Measure 0=Not Assessed/NA 4=Minimal Assistance 1=Total Assistance 5=Supervision or Setup 2=Maximal Assistance 6=Modified [place] 3=Moderate Assistance 7=Complete [place] ADL-Treatment Pt agrees to shower. After therapy, pt sitting in recliner with call light/ phone in reach. All needs met in room. Functional [place] Measure 0=Not Assessed/NA 4=Minimal Assistance 1=Total Assistance 5=Supervision or Setup 2=Maximal Assistance 6=Modified [place] 3=Moderate Assistance 7=Complete IndependenceIRFPAI Quality Coding Scale 6 Independent with activity with or without an assistive device 5 Patient requires set up or clean up by helper. Patient completes activity by themselves 4 Supervision or touching assist (CGA). [place] provide cues , steadying assist 3 The helper provides less than half the effort to complete the activity 2 The helper provides more than half the effort to complete the activity 1 Dependent. The helper does all the effort to complete an activity 7 Patient refused to complete or attempt activity 9 The patient did not perform the activity before the current illness or injury 88 Not attempted due to Medical conditions or safety concerns Grooming (FIM): 6 (At w/c level, pt able to complete by self.) Oral Hygiene (QC): 6 Bathing (FIM): 5 (SBA using shower chair with cutout and hand held shower. Pt reaches all areas.) Bathing Location: L Arm, R Arm, L Upper Leg, R Upper Leg, L Lower Leg ( including foot), R Lower Leg (including foot), Chest, Abdomen, Buttocks, Perineal Area Shower/Bathe Self (QC): 4 Upper Body (FIM): 5 (After set up, pt able to complete by self.) Upper Body Dressing (QC): 5 Lower Body Dressing (FIM): 3 (Mod A while standing to hike pants over hips. Verbal cues and assist to get socks over little toe. Pt able to don/doff over feet with min A.) Lower Body Dressing (QC): 2 On/Off Footwear (QC): 3 Toileting (FIM): 3 (Mod A in standing while pt hikes pants over hips.) Toileting Hygiene (QC): 3 Toilet/Commode Transfer (FIM): 3 (Mod A using shower chair with cutout and hemiwalker.) Toilet Transfer (QC): 3 Shower Transfer(FIM): 1 (Uses rolling shower chair for transfer.) OT Short Term Goals Short Term Goals Time Frame: Apr 09, 2018 Eating(FIM): 6 Grooming(FIM): 5 Bathing(FIM): 4 Upper Body Dressing(FIM): 4 Lower Body Dressing(FIM): 3 Toileting(FIM): 4 Transfers (B,C,W/C) (FIM): 3 Toilet/Commode Transfer(FIM): 4 Shower Transfer(FIM): 4 Additional Short Term Goals: 1-Demonstrate ADL Tasks, 2-Verbalize Understanding , 3-ImproveStrength/Sukhdeep 1=Demonstrate adherence to instructed precautions during ADL tasks. 2=Patient will verbalize/demonstrate understanding of assistive devices/ modifications for ADL. 3=Patient will improve strength/tolerance for activity to enable patient to perform ADL's. OT Market Research Analyst Goals Senior Living Goals Time Frame: Apr 23, 2018 Eating (FIM): 6 Eating (QC): 6 Groomin Oral Hygiene (QC): 6 Bathing(FIM): 5 Shower/Bathe Self (QC): 5 Upper Body Dressing(FIM): 5 Upper Body Dressing (QC): 5 Lower Body Dressing(FIM): 5 Lower Body Dressing (QC): 5 On/Off Footwear (QC): 5 Toileting(FIM): 6 Toileting Hygiene (QC): 6 Transfers (B,C,W/C) (FIM): 6 Toilet/Commode Transfer(FIM): 6 Toilet/Commode Transfer (QC): 6 Shower Transfer(FIM): 5 Additional Goals: 1-Demonstrate ADL Tasks, 2-Verbalize Understanding, 3- ImproveStrength/Sukhdeep 1=Demonstrate adherence to instructed precautions during ADL tasks. 2=Patient will verbalize/demonstrate understanding of assistive devices/ modifications for ADL. 3=Patient will improve strength/tolerance for activity to enable patient to perform ADL's. OT Education/Plan Discharge Recommendations Plan/Recommendations: Continue POC Treatment Plan/Plan of Care Patient would benefit from OT for education, treatment and training to promote independence in ADL's, mobility, safety and/or upper extremity function for ADL' s. Plan of Care: ADL Retraining, Functional Mobility, Group Exercise/Act as Ind, UE Funct Exercise/Act Treatment Duration: Apr 23, 2018 Frequency: At least 5 of 7 days/Wk (IRF) Estimated Hrs Per Day: 1.5 hours per day Agreement: Yes Rehab Potential: Fair Time/GCodes Start Time: 11:00 Stop Time: 12:00 Total Time Billed (hr/min): 60 Billed Treatment Time 1 visit-ADL 4 (60 min) JIMMY DHILLON Apr 13, 2018 11:54
--- NOTE | 2018-04-13 14:53 | Therapy Group Daily Note ---
Therapy Daily Group Note Patient Education Topic Other List Below (benefits of exercise) Exercises LE Seated Exercise, UE Exercise, Other (core) Other/Notes PT ambulated pt to therapy gym with hemiwalker for OT/PT group. Group consisted of introductions (name, place born, what makes your proud of yourself) , socialization, benefits of exercise and UE/LE/core seated exercises. Pt introduced self appropriately and actively listened to peers. Pt contributed to discussion. Verbalized understanding of educational topics and was able to give examples. Pt completed exercises, attempted to use L UE as much as possible. Pt maneuvered w/c back to room. After group, pt lying in bed with call light/phone in reach. All needs met in room. Start Time: 13:00 Stop Time: 14:20 Total Billed Treatment Time: 80 Total Billed Treatment 1-GRP JIMMY DHILLON Apr 13, 2018 14:52
--- NOTE | 2018-04-13 14:58 | Cardiology Progress Note ---
Cardiology SOAP Progress Note Subjective: No Cardiac symptoms. Objective: I&O/Vital Signs 04/13/18 04/13/18 04/13/18 06:43 08:22 08:33 Temp 98.6 98.2 Pulse 64 64 Resp 16 18 B/P (MAP) 117/54 (75) 130/66 (87) Pulse Ox 98 97 O2 Delivery Room Air Room Air Room Air 04/13/18 00:00 Intake Total 600 ml Balance 600 ml Weight (Pounds): 171 Weight (Ounces): 5.0 Weight (Calculated Kilograms): 77.816706 Constitutional: appears stated age, AAO x 3; No apparent distress; well- developed, well-nourished Respiratory: No accessory muscle use, No respiratory distress, No chest tender , No chest expansion is symmetric; chest is bilaterally symmetric; No lungs clear to percussion; lungs clear to auscultation; No crackles, No rhonchi, No rales, No stridor, No wheezing, No pleural rub, No other Cardiovascular: No regular rate-rhythm; irregularly irregular; No extra beats, No parasternal heave is noted, No JVD, No edema, No bradycardia, No tachycardia , No point of maximal impulse, No cardiac thrills are palpable; S1 and S2; No gallop/S3, No gallop/S4, No diastolic murmur; systolic murmur; No friction rub, No click, No other Gastrointestional: No tender, No soft, No round, No distended, No pulsatile mass, No organomegaly, No guarding, No rebound, No tenderness, No hernia, No mass, No audible bowel sounds, No abnormal bowel sounds, No abdominal bruits, No spleenomegaly, No other Extremities: No normal range of motion, No non-tender, No normal inspection, No pedal edema, No calf tenderness, No normal capillary refill, No pelvis stable , No calf tenderness, No inflammation, No pedal edema, No slow capillary refill , No swelling, No other, No abrasion, No clubbing, No cyanosis, No ecchymosis, No laceration, No no lower extremity edema bilateral, No significant edema, No tenderness, No wound Neurologic/Psychiatric: alert, oriented x 3, motor weakness Skin: No normal color, No warm/dry, No cyanosis, No cool, No diaphoresis, No damp, No ecchymosis, No jaundice, No mottled, No pallor, No rash, No tattoos/ piercings, No ulcerations, No rash on exposed areas, No ulcerations on exposed areas, No other Results/Procedures: Labs Laboratory Tests 04/12/18 16:27: Glucometer 256H 04/12/18 20:35: Glucometer 212H 04/13/18 05:31: Glucometer 90 04/13/18 11:49: Glucometer 204H A/P: Assessment/Dx: Frequent thromboembolic event, Persistent Atrial fibrillation, CAD, CABG, Ischemic cardiomyopathy, Aortic stenosis, Chest pain, Pulmonary hypertension Plan: CAD/CABG: Recent coronary angiography at [facility] showed patent grafts with distal disease not am and able to PCI. Medical therapy was recommended. On Plavix and Eliquis. Recurrent CVA/thromboembolic events: On Eliquis. Persistent atrial fibrillation on amiodarone and Eliquis. Also on diltiazem and beta sammie. Ischemic cardiomyopathy: LVEF 45 percent. On metoprolol. Pulmonary hypertension, continue to follow clinically. Thank you for your consultation. Please call me if you have any questions. Malcolm House MD, FACP, FACC, FSCAI, FHRS, CCDS Interventional Cardiology Cardiac Electrophysiology Vascular Medicine and Endovascular Interventions Boby HOUSE MD Apr 13, 2018 2:58 pm
[2018-04-13 18:23] VITALS: BP 130/48
[2018-04-13] MEDS: ATORVASTATIN 40 MG (LIPITOR) TABLET PO SCH (20:06)
[2018-04-13] MEDS: POLYETHYLENE GLYCOL 17 GM (MIRALAX) PACK PO SCH (20:06)
[2018-04-13] MEDS: MELATONIN 3 MG TABLET PO SCH (20:06)
--- NOTE | 2018-04-13 21:05 | PM & R (SOAP) Progress Note ---
Subjective This was a face to face visit with the patient. Date Seen by Provider: Apr 13, 2018 Time Seen by Provider: 20:10 Subjective/Events-last exam Patient was seen in his room this evening Patient min to mod assist for transfers Objective Physician Exam Last Set of Vital Signs Vital Signs Date Time Temp Pulse Resp B/P (MAP) Pulse Ox O2 Delivery O2 Flow Rate FiO2 04/13/18 18:23 97.8 60 20 130/48 (75) 99 Room Air Capillary Refill : I&O Intake and Output 04/13/18 00:00 Intake Total 700 ml Balance 700 ml Intake Oral 700 ml # Voids 6 # Bowel Movements 2 General: Alert, Cooperative, No Acute Distress HEENT: Atraumatic, PERRLA, EOMI, Mucous Memb Moist/[place], Other (Dysphagia dysarthria ) Neck: Supple, No JVD Lungs: Clear to Auscultation, Other (Decreased breath sounds) Heart: Normal S1, Normal S2, Other (Systolic murmur at the left sternal border) Abdomen: Normal Bowel Sounds, Soft, No Tenderness Extremities: No Clubbing, No Cyanosis, No Edema Skin: No Rashes, No Breakdown Neuro: Other (Left HP Upper more then lower ) Psych/Mental Status: Mental Status NL, Mood NL Results Lab Data Laboratory Tests 04/11/18 05:13: Glucometer 135H 04/11/18 11:48: Glucometer 197H 04/11/18 16:45: Glucometer 232H 04/11/18 20:31: Glucometer 247H 04/12/18 05:10: Glucometer 102 04/12/18 12:02: Glucometer 216H 04/12/18 16:27: Glucometer 256H 04/12/18 20:35: Glucometer 212H 04/13/18 05:31: Glucometer 90 04/13/18 11:49: Glucometer 204H 04/13/18 16:13: Glucometer 171H 04/13/18 20:23: Glucometer 241H Assessment/Plan Assessment and Plan RT cva with Left HP and dysphagia Chronic A FIB controlled with med CAD Insomnia improved RT neck pain improved Mild to moderate CHF compensated Depression placed on med Plan Continue PT/OT/St Team Conference 04-15-18 Co-Morbidities that are continuing to impact the rehab process: (include details ) EMMY JULIEN MD Apr 13, 2018 21:05
[2018-04-14 04:52] VITALS: BP 127/73
[2018-04-14] MEDS: inSUlin ASPART (NovoLOG) 1 UNIT/0.01 ML (CHARGE PER UNIT) SC SCH ×4 (05:14→21:52)
--- NOTE | 2018-04-14 08:15 | PM & R (SOAP) Progress Note ---
Subjective This was a face to face visit with the patient. Date Seen by Provider: Apr 14, 2018 Time Seen by Provider: 07:40 Subjective/Events-last exam Patient was seen in his room this AM Patient mod assist for transfers Review of Systems Neurological: Weakness Objective Physician Exam Last Set of Vital Signs Vital Signs Date Time Temp Pulse Resp B/P (MAP) Pulse Ox O2 Delivery O2 Flow Rate FiO2 04/14/18 05:02 Room Air 04/14/18 04:52 98.3 51 16 127/73 (91) 97 Capillary Refill : I&O Intake and Output 04/14/18 00:00 Intake Total 1125 ml Balance 1125 ml Intake Oral 1125 ml # Voids 6 # Bowel Movements 1 General: Alert, Cooperative, No Acute Distress HEENT: Atraumatic, PERRLA, EOMI, Mucous Memb Moist/[place], Other (Dysphagia dysarthria ) Neck: Supple, No JVD Lungs: Clear to Auscultation, Other (Decreased breath sounds) Heart: Normal S1, Normal S2, Other (Systolic murmur at the left sternal border) Abdomen: Normal Bowel Sounds, Soft, No Tenderness Extremities: No Clubbing, No Cyanosis, No Edema Skin: No Rashes, No Breakdown Neuro: Other (Left HP Upper more then lower ) Psych/Mental Status: Mental Status NL, Mood NL Results Lab Data Laboratory Tests 04/11/18 11:48: Glucometer 197H 04/11/18 16:45: Glucometer 232H 04/11/18 20:31: Glucometer 247H 04/12/18 05:10: Glucometer 102 04/12/18 12:02: Glucometer 216H 04/12/18 16:27: Glucometer 256H 04/12/18 20:35: Glucometer 212H 04/13/18 05:31: Glucometer 90 04/13/18 11:49: Glucometer 204H 04/13/18 16:13: Glucometer 171H 04/13/18 20:23: Glucometer 241H 04/14/18 05:08: Glucometer 130H Assessment/Plan Assessment and Plan RT cva with Left HP and dysphagia Chronic A FIB controlled with meds CAD Insomnia improved RT Neck painimproved Mild to moderate CHF compenstated Depression placed on meds Plan Continue PT/OT/ST Team Conference tomorrow Co-Morbidities that are continuing to impact the rehab process: (include details ) EMMY JULIEN MD Apr 14, 2018 08:15
[2018-04-14] MEDS: inSUlin DETERMIR 1 UNIT/0.01 ML (LEVEMIR) CHARGE PER UNIT SQ SCH ×2 (09:00→21:52)
--- NOTE | 2018-04-14 10:23 | Physical Therapy Daily Note ---
PT Daily Note-Current Subjective Patient in bed pre tx, agrees to PT, no complaints of pain. Appearance Patient in therapy gym post tx, has OT right after PT. Mental Status Patient Orientation: Person, Place, Situation Transfers Functional [place] Measure 0=Not Assessed/NA 4=Minimal Assistance 1=Total Assistance 5=Supervision or Setup 2=Maximal Assistance 6=Modified [place] 3=Moderate Assistance 7=Complete IndependenceIRFPAI Quality Coding Scale 6 Independent with activity with or without an assistive device 5 Patient requires set up or clean up by helper. Patient completes activity by themselves 4 Supervision or touching assist (CGA). [place] provide cues , steadying assist 3 The helper provides less than half the effort to complete the activity 2 The helper provides more than half the effort to complete the activity 1 Dependent. The helper does all the effort to complete an activity 7 Patient refused to complete or attempt activity 9 The patient did not perform the activity before the current illness or injury 88 Not attempted due to Medical conditions or safety concerns Transfers (B, C, W/C) (FIM): 3 Scootin Rollin Supine to/from Sit: 3 Bed to/from Chair: 3 Weight Bearing Right Lower Extremity: Right Weight Bearing/Tolerated Left Lower Extremity: Left Weight Bearing/Tolerated Gait Training Gait (FIM): 2 Distance: 75'x2 Gait Level of Assist: 3 Gait Persons Needed: 1 Gait Assistive Device: Walker Rodolfo Needs assist with balance and weight shifting. Today has a couple of episodes of knee buckling on the left side. Wheelchair Training Does the Pt Use a Wheelchair?: Yes Wheelchair (FIM): 5 Distance: 150' Wheelchair Level of Assist: 5 Type of Wheelchair: Manual Exercises Supine Ex: Bridging, Heel Slides, Short Arc Quads, Straight leg raise, Hip abd/ add Supine Reps: 40 Seated Therapy Exercises: Long arc quads Standing: Sit to Stand (3 sets of 10) L Hip abduction 2x10 in sidelying Bridging 2x15 w/ support on LLE to prevent abduction/ER Seated to taps on cones, 5 min LAQ 3# 5min alternating legs Treatments bed mobility and transfers, ambulation, functional strengthening Assessment Current Status: Fair Progress very slowly improving ambulation PT Short Term Goals Short Term Goals Time Frame: Apr 02, 2018 Transfers (B,C,W/C) (FIM): 3 Gait (FIM): 1 Gait Distance Comment: 20' Gait Level of Assist: 2 Gait Assistive Device: Cane Large Base Quad Wheelchair Distance: 150'2 PT Personalized Living Assistant Goals Group Home Goals PT Group Home Goals Time Frame: Apr 16, 2018 Transfers (B,C,W/C) (FIM): 4 Sit to Lying (QC): 3 Lying-Sitting on Side/Bed(QC): 3 Sit to Stand (QC): 3 Rollin Roll Left to Right (QC): 3 Chair/Qmg-my-Aqovz Xfer(QC): 3 Car Transfer (QC): 3 Gait (FIM): 2 Distance: 50' Walk 10 feet (QC): 3 Walk 10ft-Uneven Surface(QC): 3 Walk 50ft with 2 Turns (QC): 3 Gait Level of Assist: 4 Gait Assistive Device: Cane Large Base Quad Wheelchair (FIM): 6 Distance: 200' Wheel 50 feet with 2 turns (QC: 6 PT Plan Problem List Problem List: Activity Tolerance, Functional Strength, Safety, Balance, Gait, Transfer, Bed Mobility, ROM Treatment/Plan Treatment Plan: Continue Plan of Care Treatment Plan: Bed Mobility, Concurrent Therapy, Education, Functional Activity Sukhdeep, Functional Strength, Group Therapy, Gait, Safety, Therapeutic Exercise, Transfers Treatment Duration: Apr 16, 2018 Frequency: At least 5 of 7 days/Wk (IRF) Estimated Hrs Per Day: 1.5 hours per day Patient and/or Family Agrees t: Yes Safety Risks/Education Patient Education: Gait Training, Transfer Techniques, Correct Positioning, Safety Issues Teaching Recipient: Patient Teaching Methods: Demonstration, Discussion Response to Teaching: Reinforcement Needed Time/GCodes Time In: 0800 Time Out: 0900 Total Billed Treatment Time: 60 Total Billed Treatment 1 visit GT 25' EX 35' CAMMY BLACK PT Apr 14, 2018 10:23
[2018-04-14] MEDS: LORATADINE (CLARITIN) 10 MG TAB PO SCH (10:24)
[2018-04-14] MEDS: FLUTICASONE NASAL SPRAY (FLONASE) 16 GM BTL NS SCH (10:24)
--- NOTE | 2018-04-14 11:02 | Occupational Ther Daily Note ---
OT Current Status-Daily Note Subjective Pt in therapy gym from PT session. Pt agreed to therapy. Mental Status/Objective Patient Orientation: Person, Place, Time, Situation Functional [place] Measure 0=Not Assessed/NA 4=Minimal Assistance 1=Total Assistance 5=Supervision or Setup 2=Maximal Assistance 6=Modified [place] 3=Moderate Assistance 7=Complete [place] ADL-Treatment Functional [place] Measure 0=Not Assessed/NA 4=Minimal Assistance 1=Total Assistance 5=Supervision or Setup 2=Maximal Assistance 6=Modified [place] 3=Moderate Assistance 7=Complete IndependenceIRFPAI Quality Coding Scale 6 Independent with activity with or without an assistive device 5 Patient requires set up or clean up by helper. Patient completes activity by themselves 4 Supervision or touching assist (CGA). [place] provide cues , steadying assist 3 The helper provides less than half the effort to complete the activity 2 The helper provides more than half the effort to complete the activity 1 Dependent. The helper does all the effort to complete an activity 7 Patient refused to complete or attempt activity 9 The patient did not perform the activity before the current illness or injury 88 Not attempted due to Medical conditions or safety concerns On/Off Footwear (QC): 3 Toileting (FIM): 3 (Mod A, pt uses hemiwalker, BSC for SPT requiring verbal cues to move L LE. ) Toileting Hygiene (QC): 2 Transfers (B, C, W/C) (FIM): 3 (Mod A, pt uses hemiwalker and arm rails SPT. Pt requires verbal cues to move L LE.) Toilet/Commode Transfer (FIM): 3 (Mod A, SPT with dancing style motion using hemiwalker and BSC for stability. ) Toilet Transfer (QC): 2 Other Treatment AROM in supine with assist to guide L UE due to decreased control. Pt completed dynamic sitting balance increasing core strength and balance needed for daily functional tasks and transfer mobility. Verbal cues for positioning L UE. Pt completed dressing simulation using theraband to replicate clothing increasing ability to complete LE dressing and technique. LOB with dressing simulation, unable to catch self. Pt requires verbal cues to initiate functional movement of L UE. Pt completed arm bike for 10 min 15 dowell resistance. Pt maneuvered self back to room using LE's to propel, needing verbal cue to use L LE. After therapy, pt sitting in recliner, family in room, call light/ phone within reach. All needs met in room. OT Short Term Goals Short Term Goals Time Frame: Apr 09, 2018 Eating(FIM): 6 Grooming(FIM): 5 Bathing(FIM): 4 Upper Body Dressing(FIM): 4 Lower Body Dressing(FIM): 3 Toileting(FIM): 4 Transfers (B,C,W/C) (FIM): 3 Toilet/Commode Transfer(FIM): 4 Shower Transfer(FIM): 4 Additional Short Term Goals: 1-Demonstrate ADL Tasks, 2-Verbalize Understanding , 3-ImproveStrength/Sukhdeep 1=Demonstrate adherence to instructed precautions during ADL tasks. 2=Patient will verbalize/demonstrate understanding of assistive devices/ modifications for ADL. 3=Patient will improve strength/tolerance for activity to enable patient to perform ADL's. OT Ground Mixer Goals Halfway Goals Time Frame: Apr 23, 2018 Eating (FIM): 6 Eating (QC): 6 Groomin Oral Hygiene (QC): 6 Bathing(FIM): 5 Shower/Bathe Self (QC): 5 Upper Body Dressing(FIM): 5 Upper Body Dressing (QC): 5 Lower Body Dressing(FIM): 5 Lower Body Dressing (QC): 5 On/Off Footwear (QC): 5 Toileting(FIM): 6 Toileting Hygiene (QC): 6 Transfers (B,C,W/C) (FIM): 6 Toilet/Commode Transfer(FIM): 6 Toilet/Commode Transfer (QC): 6 Shower Transfer(FIM): 5 Additional Goals: 1-Demonstrate ADL Tasks, 2-Verbalize Understanding, 3- ImproveStrength/Sukhdeep 1=Demonstrate adherence to instructed precautions during ADL tasks. 2=Patient will verbalize/demonstrate understanding of assistive devices/ modifications for ADL. 3=Patient will improve strength/tolerance for activity to enable patient to perform ADL's. OT Education/Plan Discharge Recommendations Plan/Recommendations: Continue POC Treatment Plan/Plan of Care Patient would benefit from OT for education, treatment and training to promote independence in ADL's, mobility, safety and/or upper extremity function for ADL' s. Plan of Care: ADL Retraining, Functional Mobility, Group Exercise/Act as Ind, UE Funct Exercise/Act Treatment Duration: Apr 23, 2018 Frequency: At least 5 of 7 days/Wk (IRF) Estimated Hrs Per Day: 1.5 hours per day Agreement: Yes Rehab Potential: Fair Time/GCodes Start Time: 09:00 Stop Time: 10:15 Total Time Billed (hr/min): 75 Billed Treatment Time 1 visit- NM 2 (35 min) FA 3 (40 min) JIMMY DHILLON Apr 14, 2018 11:02
[2018-04-14] MEDS: LOSARTAN 25 MG (COZAAR) TAB PO SCH (11:24)
[2018-04-14] MEDS: FAMOTIDINE 20 MG (PEPCID) TABLET PO SCH ×2 (11:24→21:51)
[2018-04-14] MEDS: APIXABAN 5 MG (ELIQUIS) TABLET PO SCH ×2 (11:25→21:51)
[2018-04-14] MEDS: AMIODARONE 200 MG (CORDARONE) TAB PO SCH ×2 (11:25→21:51)
[2018-04-14] MEDS: CLOPIDOGREL 75 MG (PLAVIX) TABLET PO SCH (11:25)
[2018-04-14] MEDS: SENNA W/DOCUSATE (SENOKOT S) TABLET PO SCH ×2 (12:37→22:16)
--- NOTE | 2018-04-14 13:04 | Cardiology Progress Note ---
Cardiology SOAP Progress Note Subjective: No cardiac complaints. Objective: I&O/Vital Signs 04/14/18 04/14/18 04:52 05:02 Temp 98.3 Pulse 51 Resp 16 B/P (MAP) 127/73 (91) Pulse Ox 97 O2 Delivery Room Air Room Air 04/14/18 00:00 Intake Total 1025 ml Balance 1025 ml Weight (Pounds): 171 Weight (Ounces): 5.0 Weight (Calculated Kilograms): 77.053290 Constitutional: appears stated age, AAO x 3; No apparent distress; well- developed, well-nourished Respiratory: No accessory muscle use, No respiratory distress, No chest tender , No chest expansion is symmetric; chest is bilaterally symmetric; No lungs clear to percussion; lungs clear to auscultation; No crackles, No rhonchi, No rales, No stridor, No wheezing, No pleural rub, No other Cardiovascular: No regular rate-rhythm; irregularly irregular; No extra beats, No parasternal heave is noted, No JVD, No edema, No bradycardia, No tachycardia , No point of maximal impulse, No cardiac thrills are palpable; S1 and S2; No gallop/S3, No gallop/S4, No diastolic murmur; systolic murmur; No friction rub, No click, No other Gastrointestional: No tender, No soft, No round, No distended, No pulsatile mass, No organomegaly, No guarding, No rebound, No tenderness, No hernia, No mass, No audible bowel sounds, No abnormal bowel sounds, No abdominal bruits, No spleenomegaly, No other Extremities: No normal range of motion, No non-tender, No normal inspection, No pedal edema, No calf tenderness, No normal capillary refill, No pelvis stable , No calf tenderness, No inflammation, No pedal edema, No slow capillary refill , No swelling, No other, No abrasion, No clubbing, No cyanosis, No ecchymosis, No laceration, No no lower extremity edema bilateral, No significant edema, No tenderness, No wound Neurologic/Psychiatric: alert, oriented x 3, motor weakness Skin: No normal color, No warm/dry, No cyanosis, No cool, No diaphoresis, No damp, No ecchymosis, No jaundice, No mottled, No pallor, No rash, No tattoos/ piercings, No ulcerations, No rash on exposed areas, No ulcerations on exposed areas, No other Results/Procedures: Labs Laboratory Tests 04/13/18 16:13: Glucometer 171H 04/13/18 20:23: Glucometer 241H 04/14/18 05:08: Glucometer 130H 04/14/18 11:09: Glucometer 246H A/P: Assessment/Dx: Frequent thromboembolic event, Persistent Atrial fibrillation, CAD, CABG, Ischemic cardiomyopathy, Aortic stenosis, Chest pain, Pulmonary hypertension Plan: CAD/CABG: Recent coronary angiography at [facility] showed patent grafts with distal disease not am and able to PCI. Medical therapy was recommended. On Plavix and Eliquis. Recurrent CVA/thromboembolic events: On Eliquis. Persistent atrial fibrillation on amiodarone and Eliquis. Also on diltiazem and beta sammie. Ischemic cardiomyopathy: LVEF 45 percent. On metoprolol. Pulmonary hypertension, continue to follow clinically. Thank you for your consultation. Please call me if you have any questions. Malcolm House MD, FACP, FACC, FSCAI, FHRS, CCDS Interventional Cardiology Cardiac Electrophysiology Vascular Medicine and Endovascular Interventions Boby HOUSE MD Apr 14, 2018 1:04 pm
--- NOTE | 2018-04-14 14:18 | Physical Therapy Daily Note ---
PT Daily Note-Current Subjective Pt in recliner pre tx, agrees to PT. No complaints of pain. Appearance Pt in bed post tx w/ phone, call light, tray and all needs met Mental Status Patient Orientation: Person, Place, Time Transfers Functional [place] Measure 0=Not Assessed/NA 4=Minimal Assistance 1=Total Assistance 5=Supervision or Setup 2=Maximal Assistance 6=Modified [place] 3=Moderate Assistance 7=Complete IndependenceIRFPAI Quality Coding Scale 6 Independent with activity with or without an assistive device 5 Patient requires set up or clean up by helper. Patient completes activity by themselves 4 Supervision or touching assist (CGA). [place] provide cues , steadying assist 3 The helper provides less than half the effort to complete the activity 2 The helper provides more than half the effort to complete the activity 1 Dependent. The helper does all the effort to complete an activity 7 Patient refused to complete or attempt activity 9 The patient did not perform the activity before the current illness or injury 88 Not attempted due to Medical conditions or safety concerns Transfers (B, C, W/C) (FIM): 3 Supine to/from Sit: 3 Sit to/from Stand: 3 Sit to/from stand modA. Cues needed for getting all the way turned before starting to sit. Pt tends to fall into chair instead of controlling his descent. Sit to supine modA, pt needs assistance getting legs into bed Weight Bearing Right Lower Extremity: Right Weight Bearing/Tolerated Left Lower Extremity: Left Weight Bearing/Tolerated Gait Training Does the Patient Walk?: Yes Gait (FIM): 2 Distance (FIM): 1=101-85 ft Distance: 120'X2 Gait Level of Assist: 3 Gait Persons Needed: 1 Gait Assistive Device: Walker Rodolfo PT ambulates to/from gym 100' w/ modA. L knee hyperextension and step -to pattern w/ rodolfo-walker, cues needed for standing up straight. Neuromuscular Standing balance in parallel bars 3x2min. Pt able to psychologist counseling parallel bars unsupported w/ Johan or CGA, pt able to grab bars to catch himself if needed. Cues needed for getting feet shoulder width apart and keeping legs straight Treatments gait and mobility training, balance training Assessment Current Status: Fair Progress improved endurance w/ ability to walk to/from gym, improved standing balance with decreased assistance needed PT Short Term Goals Short Term Goals Time Frame: Apr 02, 2018 Transfers (B,C,W/C) (FIM): 3 Gait (FIM): 1 Gait Distance Comment: 20' Gait Level of Assist: 2 Gait Assistive Device: Cane Large Base Quad Wheelchair Distance: 150' PT [facility]ci Goals Slunk Skin Curer Goals PT [facility] Goals Time Frame: Apr 16, 2018 Transfers (B,C,W/C) (FIM): 4 Sit to Lying (QC): 3 Lying-Sitting on Side/Bed(QC): 3 Sit to Stand (QC): 3 Rollin Roll Left to Right (QC): 3 Chair/Rwq-gb-Slrkz Xfer(QC): 3 Car Transfer (QC): 3 Gait (FIM): 2 Distance: 50' Walk 10 feet (QC): 3 Walk 10ft-Uneven Surface(QC): 3 Walk 50ft with 2 Turns (QC): 3 Gait Level of Assist: 4 Gait Assistive Device: Cane Large Base Quad Wheelchair (FIM): 6 Distance: 200' Wheel 50 feet with 2 turns (QC: 6 PT Plan Problem List Problem List: Activity Tolerance, Functional Strength, Safety, Balance, Gait, Transfer, Bed Mobility, ROM Treatment/Plan Treatment Plan: Continue Plan of Care Treatment Plan: Bed Mobility, Concurrent Therapy, Education, Functional Activity Sukhdeep, Functional Strength, Group Therapy, Gait, Safety, Therapeutic Exercise, Transfers Treatment Duration: Apr 16, 2018 Frequency: At least 5 of 7 days/Wk (IRF) Estimated Hrs Per Day: 1.5 hours per day Patient and/or Family Agrees t: Yes Safety Risks/Education Patient Education: Gait Training, Transfer Techniques, Correct Positioning, Safety Issues Teaching Recipient: Patient Teaching Methods: Demonstration, Discussion Response to Teaching: Reinforcement Needed Time/GCodes Time In: 1300 Time Out: 1400 Total Billed Treatment Time: 30 Total Billed Treatment 1 visit GT 20' NM 10' CAMMY BLACK PT Apr 14, 2018 14:18
[2018-04-14 16:03] VITALS: BP 136/73
--- NOTE | 2018-04-14 16:39 | Speech Therapy Daily Note ---
Speech Daily Progress Note Subjective Date Seen by Provider: Apr 14, 2018 Time Seen by Provider: 10:30 Pt pleasant and cooperative. Pain Numeric Pain Scale: 0-No Pain Objective Pt performed dysphagia exercises with supervision. Pt actually appeared less flat affect today. Assessment Assessment Current Status: Fair Progress Treatment Plan Continue Plan of Care Communication Comprehension: 6 Expression: 7 Social Cognition Social Interaction: 7 Problem Solvin Memory: 7 Speech Short Term Goals Short Term Goals Short Term Goals Pt will complete Oral Motor Exercises with min assist. Time Frame-ST week Speech Regional Economist Goals Detention Goals Pt will tolerate regular diet with thin liquids with no s/s of aspiration. Time Frame: 3 weeks Speech-Plan Patient/Family Goals Patient/Family Goals: to drink thin liquids. Treatment Plan Speech Therapy Treatment Plan: Continue Plan of Care pt keeps participating despite being fatigued. Treatment Duration: Mar 26, 2018 Frequency: 5 times per week Estimated Hrs Per Day: .5 hour per day Rehab Potential: Fair Pt/Family Agrees to Plan: Yes Safety Risks/Education Teaching Recipient: Patient Teaching Methods: Discussion Response to Teaching: Verbalize Understanding Time Speech Therapy Time In: 10:30 Speech Therapy Time Out: 11:00 Total Billed Time: 30 Billed Treatment Time 1, DYST No MAGALY GARAY Apr 14, 2018 16:39
[2018-04-14] MEDS: MELATONIN 3 MG TABLET PO SCH (21:51)
[2018-04-14] MEDS: ATORVASTATIN 40 MG (LIPITOR) TABLET PO SCH (21:51)
--- NOTE | 2018-04-14 21:53 | Progress Note-Hospitalist ---
Subjective HPI/CC On Admission Date Seen by Provider: Apr 14, 2018 Time Seen by Provider: 09:00 Mr. Guerin is a frail 73-year-old white male who developed abrupt onset of left upper quadrant pain on 18 March. 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 He was discharged with pain medication. On [address] scanning of the chest with contrast for evaluation of subcarinal fullness. It was felt to represent adenopathy a little more prominent than a previous CT scan of the chest in 2012 per radiologist report. No pulmonary abnormalities were reported. He also had significant cholelithiasis without symptoms to suggest cholecystitis. Sometime shortly thereafter he developed left-sided weakness and was transferred to [place] where he was noted to have a right sided CVA without evidence for significant extracranial vascular disease. He ultimately underwent cardiac catheterization as well which reportedly revealed mild hypokinesis with estimated ejection fraction of 40 percent he did have 3 patent grafts he had some disease in the PDA distal to his RCA graft and also had some disease in the obtuse marginal system that was not bypassed. Medical management was opted for however and the patient did not undergo any endovascular-based therapy. He is transferred back to our rehabilitation unit to continue redilatation for deficits that include left-sided hemiparesis as well as dysarthria and mild dysphasia. He reports that he has been swallowing without coughing on thickened liquids and solids. He denies abdominal pain but does note some sores in his mouth. He states that while he still has significant weakness he has had improvement in movement of the left upper extremity and left lower extremity. The left lower extremity is been affected to a lesser degree than left upper extremity. Past medical history seen for long-standing poorly controlled insulin requiring type II diabetes due to poor compliance with bolus therapy for many years. 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 For this reason he had not been on anticoagulant therapy for known underlying persistent atrial fibrillation. He had no previous known history of thromboembolic disease. He has been placed on eliquis and reports no change in vision and also denies ocular pain. He also was diagnosed with urinary tract infection and discharged on Levaquin to our facility. He also has known significant peripheral neuropathy and pressure ulceration with past osteomyelitis of the great toe requiring partial amputation on the left. In the past she's had multiple foot ulcers but is been some time since he last required treatment for diabetic-related foot ulceration. Subjective/Events-last exam Patient reports that his depression is better and his outlook is improved. Even his granddaughter noted that he was smiling again. According to his even prior to his stroke he had some long-standing issues with depression that he never divulged to me. He reports some improvements in control of his left upper extremity now. He is been using a platform walker with assistance. Although it is reportedly labored. He denies dyspnea at rest with improving dyspnea with exertion and some improvement in stamina. He said no chest pain and lightheadedness presyncope or syncope. Objective Exam Vital Signs Vital Signs Date Time Temp Pulse Resp B/P (MAP) Pulse Ox O2 Delivery O2 Flow Rate FiO2 04/21/18 08:26 Room Air 04/21/18 05:32 98.8 61 16 129/79 (96) 97 Capillary Refill : General Appearance: No Apparent Distress, Chronically ill Respiratory: Chest Non Tender, Lungs Clear, Normal Breath Sounds, No Accessory Muscle Use, No Respiratory Distress Cardiovascular: No Gallop, No JVD, Systolic Murmur (2-3/6 unchanged), Irregularly Irregular Extremity: No Calf Tenderness, Other (Race lower extremity pedal edema and 1-2 + edema of the left hand) Neurologic/Psychiatric: Alert, Abnormal Gait, Other (Improvement in left upper extremity control although this labored with some dysmetria he can touch his left finger to his nose twice left lower extremity weakness and control slowly improving as well. Patient still has somewhat of a depressed flat affect) Results/Procedures Lab Patient resulted labs reviewed. Assessment/Plan Assessment and Plan Assess & Plan/Chief Complaint 1. 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 Considering splenic infarct likely embolic as well we did discuss the risk of anticoagulant therapy and recurrent hemorrhage versus benefits. In my estimation benefits significantly outweigh risk as she would be highly likely to continue to have embolic symptoms. The downside would be retinal hemorrhages would likely lead to blindness in the affected eye. Patient agrees with continuing anticoagulant therapy.No change in vision reported. Barium base swallowing study does reveal evidence for small volume aspiration and vallecular pooling. Patient has no evidence for aspiration pneumonitis at this time continuing to work with speech therapy. 2. Known significant coronary artery disease with mild LV systolic dysfunction continue baby aspirin daily. 3. Type II diabetes mellitus insulin requiring good a.m. control but prelunch breakfast and bedtime sugars still consistently over 200 will increase bolus therapy to 8 units before meals. 4. Thrush resolved will DC nystatin.. 5. Chronic atrial fibrillation currently rate controlled. 6. Reported urinary tract infection with resolution on repeat UA.. 7. Carinal fullness possible adenopathy considering the patient's frailty and multiple medical symptoms we will see about obtaining PET scan as an outpatient. 8. Depression significantly improved on Lexapro continue 10 mg daily . Clinical Quality Measures DVT/VTE Risk/Contraindication: Risk Factor Score Per Nursin RFS Level Per Nursing on Admit: 4+=Very High BEVERLY FERNANDES MD Apr 14, 2018 21:53
[2018-04-14] MEDS: POLYETHYLENE GLYCOL 17 GM (MIRALAX) PACK PO SCH (22:16)
[2018-04-15 05:07] VITALS: BP 129/65
[2018-04-15] MEDS: inSUlin ASPART (NovoLOG) 1 UNIT/0.01 ML (CHARGE PER UNIT) SC SCH ×4 (06:43→20:25)
[2018-04-15] MEDS: LOSARTAN 25 MG (COZAAR) TAB PO SCH (08:42)
[2018-04-15] MEDS: APIXABAN 5 MG (ELIQUIS) TABLET PO SCH ×2 (08:42→20:25)
[2018-04-15] MEDS: AMIODARONE 200 MG (CORDARONE) TAB PO SCH ×2 (08:42→20:25)
[2018-04-15] MEDS: FAMOTIDINE 20 MG (PEPCID) TABLET PO SCH ×2 (08:43→20:25)
[2018-04-15] MEDS: FLUTICASONE NASAL SPRAY (FLONASE) 16 GM BTL NS SCH (08:43)
[2018-04-15] MEDS: SENNA W/DOCUSATE (SENOKOT S) TABLET PO SCH ×2 (08:43→20:34)
[2018-04-15] MEDS: LORATADINE (CLARITIN) 10 MG TAB PO SCH (08:43)
[2018-04-15] MEDS: CLOPIDOGREL 75 MG (PLAVIX) TABLET PO SCH (08:43)
[2018-04-15] MEDS: inSUlin DETERMIR 1 UNIT/0.01 ML (LEVEMIR) CHARGE PER UNIT SQ SCH ×2 (08:44→20:24)
[2018-04-15 08:50] VITALS: BP 157/75
[2018-04-15 09:00] VITALS: BP 121/67
--- NOTE | 2018-04-15 09:03 | Physical Therapy Daily Note ---
PT Daily Note-Current Subjective Pt in bed pre tx, agrees to PT. No complaints of pain. States he had a lot of trouble sleeping last night. Appearance Pt in recliner post tx, w/ phone, call light, tray, all needs met, nurse in the room. Pt complains of chest tightness after performing sit to stands, BP 157/75 , HR 78, nurse notified. Mental Status Patient Orientation: Person, Place, Situation Transfers Functional [place] Measure 0=Not Assessed/NA 4=Minimal Assistance 1=Total Assistance 5=Supervision or Setup 2=Maximal Assistance 6=Modified [place] 3=Moderate Assistance 7=Complete IndependenceIRFPAI Quality Coding Scale 6 Independent with activity with or without an assistive device 5 Patient requires set up or clean up by helper. Patient completes activity by themselves 4 Supervision or touching assist (CGA). [place] provide cues , steadying assist 3 The helper provides less than half the effort to complete the activity 2 The helper provides more than half the effort to complete the activity 1 Dependent. The helper does all the effort to complete an activity 7 Patient refused to complete or attempt activity 9 The patient did not perform the activity before the current illness or injury 88 Not attempted due to Medical conditions or safety concerns Transfers (B, C, W/C) (FIM): 3 Supine to/from Sit: 3 Sit to/from Stand: 3 Bed to/from Chair: 3 Pt transfers w/ modA. Pt fatigues easily this morning. Cues needed for leaning towards good (R) side during sit<->stand. Weight Bearing Right Lower Extremity: Right Weight Bearing/Tolerated Left Lower Extremity: Left Weight Bearing/Tolerated Gait Training Does the Patient Walk?: Yes Gait (FIM): 2 Distance (FIM): 5=775-42 ft Distance: 75'x2 Gait Level of Assist: 3 Gait Persons Needed: 1 Gait Assistive Device: Walker Rodolfo Pt ambulates from room to gym w/ modA using rodolfo-walker, pt takes rest break prison through. Pt demonstrates L knee hyperextension and flexed posture during ambulation Exercises Standing: Sit to Stand Standing Reps: 10 Sit<->stand 2x5 w/ modA in front of parallel bars, cues needed for foot placement and leaning towards right side during push off NuStep Minutes: 15 NuStep Workload: 5 (10' at lvl 5, 5' at lvl 3) Treatments gait and mobility training, transfer training, Assessment Current Status: Poor Progress patient fatigued much more easily today PT Short Term Goals Short Term Goals Time Frame: Apr 02, 2018 Transfers (B,C,W/C) (FIM): 3 Gait (FIM): 1 Gait Distance Comment: 20' Gait Level of Assist: 2 Gait Assistive Device: Cane Large Base Quad Wheelchair Distance: 150' PT Scarifier Operator Goals Mcc Goals PT Mcc Goals Time Frame: Apr 16, 2018 Transfers (B,C,W/C) (FIM): 4 Sit to Lying (QC): 3 Lying-Sitting on Side/Bed(QC): 3 Sit to Stand (QC): 3 Rollin Roll Left to Right (QC): 3 Chair/Qaw-ey-Yskvq Xfer(QC): 3 Car Transfer (QC): 3 Gait (FIM): 2 Distance: 50' Walk 10 feet (QC): 3 Walk 10ft-Uneven Surface(QC): 3 Walk 50ft with 2 Turns (QC): 3 Gait Level of Assist: 4 Gait Assistive Device: Cane Large Base Quad Wheelchair (FIM): 6 Distance: 200' Wheel 50 feet with 2 turns (QC: 6 PT Plan Problem List Problem List: Activity Tolerance, Functional Strength, Safety, Balance, Gait, Transfer, Bed Mobility Treatment/Plan Treatment Plan: Continue Plan of Care Treatment Plan: Bed Mobility, Concurrent Therapy, Education, Functional Activity Sukhdeep, Functional Strength, Group Therapy, Gait, Safety, Therapeutic Exercise, Transfers Treatment Duration: Apr 16, 2018 Frequency: At least 5 of 7 days/Wk (IRF) Estimated Hrs Per Day: 1.5 hours per day Patient and/or Family Agrees t: Yes Safety Risks/Education Patient Education: Gait Training, Transfer Techniques, Correct Positioning, Safety Issues Teaching Recipient: Patient Teaching Methods: Demonstration, Discussion Response to Teaching: Reinforcement Needed Time/GCodes Time In: 0800 Time Out: 0900 Total Billed Treatment Time: 60 Total Billed Treatment 1 visit GT 15' FA 15' EX 30' CAMMY BLACK PT Apr 15, 2018 09:03
[2018-04-15 09:30] VITALS: BP 124/61
--- NOTE | 2018-04-15 09:32 | PM & R (SOAP) Progress Note ---
Subjective This was a face to face visit with the patient. Date Seen by Provider: Apr 15, 2018 Time Seen by Provider: 08:15 Subjective/Events-last exam Patient was seen in his room this AM Patient Mod assist for transfers Review of Systems Neurological: Weakness Objective Physician Exam Last Set of Vital Signs Vital Signs Date Time Temp Pulse Resp B/P (MAP) Pulse Ox O2 Delivery O2 Flow Rate FiO2 04/15/18 09:00 62 18 121/67 (85) 100 Room Air 04/15/18 05:07 98.1 Capillary Refill : I&O Intake and Output 04/15/18 00:00 Intake Total 1190 ml Balance 1190 ml Intake Oral 1190 ml # Voids 7 # Bowel Movements 1 General: Alert, Cooperative, No Acute Distress HEENT: Atraumatic, PERRLA, EOMI, Mucous Memb Moist/[place], Other (Dysphagia dysarthria ) Neck: Supple, No JVD Lungs: Clear to Auscultation, Other (Decreased breath sounds) Heart: Normal S1, Normal S2, Other (Systolic murmur at the left sternal border) Abdomen: Normal Bowel Sounds, Soft, No Tenderness Extremities: No Clubbing, No Cyanosis, No Edema Skin: No Rashes, No Breakdown Neuro: Other (Left HP Upper more then lower ) Psych/Mental Status: Mental Status NL, Mood NL Results Lab Data Laboratory Tests 04/12/18 12:02: Glucometer 216H 04/12/18 16:27: Glucometer 256H 04/12/18 20:35: Glucometer 212H 04/13/18 05:31: Glucometer 90 04/13/18 11:49: Glucometer 204H 04/13/18 16:13: Glucometer 171H 04/13/18 20:23: Glucometer 241H 04/14/18 05:08: Glucometer 130H 04/14/18 11:09: Glucometer 246H 04/14/18 16:01: Glucometer 223H 04/14/18 20:17: Glucometer 212H 04/15/18 06:26: Glucometer 91 Assessment/Plan Assessment and Plan 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
--- NOTE | 2018-04-15 10:39 | Occupational Ther Daily Note ---
OT Current Status-Daily Note Subjective Pt alert, sitting in recliner. Pt c/o fatigue, not getting a good night's sleep. No c/o pain. Pt stated that he was able to use L UE to reach across body to scratch R UE and R side. Mental Status/Objective Patient Orientation: Person, Place, Time, Situation Functional [place] Measure 0=Not Assessed/NA 4=Minimal Assistance 1=Total Assistance 5=Supervision or Setup 2=Maximal Assistance 6=Modified [place] 3=Moderate Assistance 7=Complete [place] ADL-Treatment Pt declines taking shower and changing clothing due to fatigue. Functional [place] Measure 0=Not Assessed/NA 4=Minimal Assistance 1=Total Assistance 5=Supervision or Setup 2=Maximal Assistance 6=Modified [place] 3=Moderate Assistance 7=Complete IndependenceIRFPAI Quality Coding Scale 6 Independent with activity with or without an assistive device 5 Patient requires set up or clean up by helper. Patient completes activity by themselves 4 Supervision or touching assist (CGA). [place] provide cues , steadying assist 3 The helper provides less than half the effort to complete the activity 2 The helper provides more than half the effort to complete the activity 1 Dependent. The helper does all the effort to complete an activity 7 Patient refused to complete or attempt activity 9 The patient did not perform the activity before the current illness or injury 88 Not attempted due to Medical conditions or safety concerns Other Treatment APROM for L hand and L wrist. Pt is able to actively move hand and wrist in flexion and initiate extension with assist to get full ROM. Pt then was able to grasp light object and bring to L shldr 5x's with verbal cues to focus on grasp. Pt will focus on movement and lose grasp. After therapy, pt sitting in recliner with call light/phone in reach. All needs met in room. OT Short Term Goals Short Term Goals Time Frame: Apr 09, 2018 Eating(FIM): 6 Grooming(FIM): 5 Bathing(FIM): 4 Upper Body Dressing(FIM): 4 Lower Body Dressing(FIM): 3 Toileting(FIM): 4 Transfers (B,C,W/C) (FIM): 3 Toilet/Commode Transfer(FIM): 4 Shower Transfer(FIM): 4 Additional Short Term Goals: 1-Demonstrate ADL Tasks, 2-Verbalize Understanding , 3-ImproveStrength/Sukhdeep 1=Demonstrate adherence to instructed precautions during ADL tasks. 2=Patient will verbalize/demonstrate understanding of assistive devices/ modifications for ADL. 3=Patient will improve strength/tolerance for activity to enable patient to perform ADL's. OT Lathe Tender Goals Half-Way Goals Time Frame: Apr 23, 2018 Eating (FIM): 6 Eating (QC): 6 Groomin Oral Hygiene (QC): 6 Bathing(FIM): 5 Shower/Bathe Self (QC): 5 Upper Body Dressing(FIM): 5 Upper Body Dressing (QC): 5 Lower Body Dressing(FIM): 5 Lower Body Dressing (QC): 5 On/Off Footwear (QC): 5 Toileting(FIM): 6 Toileting Hygiene (QC): 6 Transfers (B,C,W/C) (FIM): 6 Toilet/Commode Transfer(FIM): 6 Toilet/Commode Transfer (QC): 6 Shower Transfer(FIM): 5 Additional Goals: 1-Demonstrate ADL Tasks, 2-Verbalize Understanding, 3- ImproveStrength/Sukhdeep 1=Demonstrate adherence to instructed precautions during ADL tasks. 2=Patient will verbalize/demonstrate understanding of assistive devices/ modifications for ADL. 3=Patient will improve strength/tolerance for activity to enable patient to perform ADL's. OT Education/Plan Discharge Recommendations Plan/Recommendations: Continue POC Treatment Plan/Plan of Care Patient would benefit from OT for education, treatment and training to promote independence in ADL's, mobility, safety and/or upper extremity function for ADL' s. Plan of Care: ADL Retraining, Functional Mobility, Group Exercise/Act as Ind, UE Funct Exercise/Act Treatment Duration: Apr 23, 2018 Frequency: At least 5 of 7 days/Wk (IRF) Estimated Hrs Per Day: 1.5 hours per day Agreement: Yes Rehab Potential: Fair Time/GCodes Start Time: 10:00 Stop Time: 10:30 Total Time Billed (hr/min): 30 Billed Treatment Time 1 visit-NM 2 (30 min) JIMMY DHILLON Apr 15, 2018 10:39
--- NOTE | 2018-04-15 11:26 | Speech Therapy Daily Note ---
Speech Daily Progress Note Subjective Date Seen by Provider: Apr 15, 2018 Time Seen by Provider: 10:30 Pt up and alert. Pain Numeric Pain Scale: 0-No Pain Objective Pt completed dysphagia exercises with supervision. Attempted ice chip with pt. Had pt to tuck chin and swallow and then raise his head. Did not observe any coughing or wet vocal quality. Informed pt this will be integrated into tx unless consistent s/s of aspiration are observed. Pt was very pleased about this. Assessment Assessment Current Status: Fair Progress Treatment Plan Continue Plan of Care Communication Comprehension: 6 Expression: 7 Social Cognition Social Interaction: 7 Problem Solvin Memory: 7 Speech Short Term Goals Short Term Goals Short Term Goals Pt will complete Oral Motor Exercises with min assist. Time Frame-ST week Speech Custodial Goals Fruit Ii Farmworker Goals Pt will tolerate regular diet with thin liquids with no s/s of aspiration. Time Frame: 3 weeks Speech-Plan Patient/Family Goals Patient/Family Goals: to drink thin liquids Treatment Plan Speech Therapy Treatment Plan: Continue Plan of Care Pt very motivated to improve. Treatment Duration: Mar 26, 2018 Frequency: 5 times per week Estimated Hrs Per Day: .5 hour per day Rehab Potential: Fair Pt/Family Agrees to Plan: Yes Safety Risks/Education Teaching Recipient: Patient, Family Teaching Methods: Discussion Response to Teaching: Verbalize Understanding Time Speech Therapy Time In: 10:30 Speech Therapy Time Out: 11:00 Total Billed Time: 30 Billed Treatment Time 1, DYST MAGALY Moseley Apr 15, 2018 11:26
--- NOTE | 2018-04-15 12:48 | Occupational Ther Daily Note ---
OT Current Status-Daily Note Subjective Pt alert, sitting in recliner. Pt agrees to therapy. No c/o pain at this time. Mental Status/Objective Patient Orientation: Person, Place, Time, Situation Functional [place] Measure 0=Not Assessed/NA 4=Minimal Assistance 1=Total Assistance 5=Supervision or Setup 2=Maximal Assistance 6=Modified [place] 3=Moderate Assistance 7=Complete [place] ADL-Treatment Max A with toilet transfer using BSC and hemiwalker, 2nd person for safety. Pt requires verbal cues when to move L LE with transfer and when to reach back to sit. Assist with hiking pants up/down with toileting. Pt able to complete hygiene while sitting though will fall to L side. After therapy, pt lying in bed with call light/phone in reach. All needs met in room. Functional [place] Measure 0=Not Assessed/NA 4=Minimal Assistance 1=Total Assistance 5=Supervision or Setup 2=Maximal Assistance 6=Modified [place] 3=Moderate Assistance 7=Complete IndependenceIRFPAI Quality Coding Scale 6 Independent with activity with or without an assistive device 5 Patient requires set up or clean up by helper. Patient completes activity by themselves 4 Supervision or touching assist (CGA). [place] provide cues , steadying assist 3 The helper provides less than half the effort to complete the activity 2 The helper provides more than half the effort to complete the activity 1 Dependent. The helper does all the effort to complete an activity 7 Patient refused to complete or attempt activity 9 The patient did not perform the activity before the current illness or injury 88 Not attempted due to Medical conditions or safety concerns Grooming (FIM): 6 (At w/c level, pt able to complete.) Oral Hygiene (QC): 6 Toileting (FIM): 2 Toileting Hygiene (QC): 2 Toilet/Commode Transfer (FIM): 3 Other Treatment Electrical stimulation to wrist/hand extensors to increase functional active movement for telephoto installer and pinch. Pt is demonstrating slight active extension, no full AROM. OT Short Term Goals Short Term Goals Time Frame: Apr 09, 2018 Eating(FIM): 6 Grooming(FIM): 5 Bathing(FIM): 4 Upper Body Dressing(FIM): 4 Lower Body Dressing(FIM): 3 Toileting(FIM): 4 Transfers (B,C,W/C) (FIM): 3 Toilet/Commode Transfer(FIM): 4 Shower Transfer(FIM): 4 Additional Short Term Goals: 1-Demonstrate ADL Tasks, 2-Verbalize Understanding , 3-ImproveStrength/Sukhdeep 1=Demonstrate adherence to instructed precautions during ADL tasks. 2=Patient will verbalize/demonstrate understanding of assistive devices/ modifications for ADL. 3=Patient will improve strength/tolerance for activity to enable patient to perform ADL's. OT Prison Goals Prison Goals Time Frame: Apr 23, 2018 Eating (FIM): 6 Eating (QC): 6 Groomin Oral Hygiene (QC): 6 Bathing(FIM): 5 Shower/Bathe Self (QC): 5 Upper Body Dressing(FIM): 5 Upper Body Dressing (QC): 5 Lower Body Dressing(FIM): 5 Lower Body Dressing (QC): 5 On/Off Footwear (QC): 5 Toileting(FIM): 6 Toileting Hygiene (QC): 6 Transfers (B,C,W/C) (FIM): 6 Toilet/Commode Transfer(FIM): 6 Toilet/Commode Transfer (QC): 6 Shower Transfer(FIM): 5 Additional Goals: 1-Demonstrate ADL Tasks, 2-Verbalize Understanding, 3- ImproveStrength/Sukhdeep 1=Demonstrate adherence to instructed precautions during ADL tasks. 2=Patient will verbalize/demonstrate understanding of assistive devices/ modifications for ADL. 3=Patient will improve strength/tolerance for activity to enable patient to perform ADL's. OT Education/Plan Discharge Recommendations Plan/Recommendations: Continue POC Treatment Plan/Plan of Care Patient would benefit from OT for education, treatment and training to promote independence in ADL's, mobility, safety and/or upper extremity function for ADL' s. Plan of Care: ADL Retraining, Functional Mobility, Group Exercise/Act as Ind, UE Funct Exercise/Act Treatment Duration: Apr 23, 2018 Frequency: At least 5 of 7 days/Wk (IRF) Estimated Hrs Per Day: 1.5 hours per day Agreement: Yes Rehab Potential: Fair Time/GCodes Start Time: 11:00 Stop Time: 12:00 Total Time Billed (hr/min): 60 Billed Treatment Time 1 visit-NM 1 (20 min) ADL 3 (40 min) JIMMY DHILLON Apr 15, 2018 12:48
--- NOTE | 2018-04-15 14:09 | Cardiology Progress Note ---
Cardiology SOAP Progress Note Subjective: No cardiac complaints. Objective: I&O/Vital Signs 04/15/18 04/15/18 04/15/18 05:07 08:50 09:00 Temp 98.1 Pulse 63 66 62 Resp 18 20 18 B/P (MAP) 129/65 (86) 157/75 (102) 121/67 (85) Pulse Ox 100 98 100 O2 Delivery Room Air Room Air Room Air 04/15/18 00:00 Intake Total 1140 ml Balance 1140 ml Weight (Pounds): 171 Weight (Ounces): 5.0 Weight (Calculated Kilograms): 77.177130 Constitutional: appears stated age, AAO x 3; No apparent distress; well- developed, well-nourished Respiratory: No accessory muscle use, No respiratory distress, No chest tender , No chest expansion is symmetric; chest is bilaterally symmetric; No lungs clear to percussion; lungs clear to auscultation; No crackles, No rhonchi, No rales, No stridor, No wheezing, No pleural rub, No other Cardiovascular: No regular rate-rhythm; irregularly irregular; No extra beats, No parasternal heave is noted, No JVD, No edema, No bradycardia, No tachycardia , No point of maximal impulse, No cardiac thrills are palpable; S1 and S2; No gallop/S3, No gallop/S4, No diastolic murmur; systolic murmur; No friction rub, No click, No other Gastrointestional: No tender, No soft, No round, No distended, No pulsatile mass, No organomegaly, No guarding, No rebound, No tenderness, No hernia, No mass, No audible bowel sounds, No abnormal bowel sounds, No abdominal bruits, No spleenomegaly, No other Extremities: No normal range of motion, No non-tender, No normal inspection, No pedal edema, No calf tenderness, No normal capillary refill, No pelvis stable , No calf tenderness, No inflammation, No pedal edema, No slow capillary refill , No swelling, No other, No abrasion, No clubbing, No cyanosis, No ecchymosis, No laceration, No no lower extremity edema bilateral, No significant edema, No tenderness, No wound Neurologic/Psychiatric: alert, oriented x 3, motor weakness Skin: No normal color, No warm/dry, No cyanosis, No cool, No diaphoresis, No damp, No ecchymosis, No jaundice, No mottled, No pallor, No rash, No tattoos/ piercings, No ulcerations, No rash on exposed areas, No ulcerations on exposed areas, No other Results/Procedures: Labs Laboratory Tests 04/14/18 16:01: Glucometer 223H 04/14/18 20:17: Glucometer 212H 04/15/18 06:26: Glucometer 91 04/15/18 11:05: Glucometer 234H A/P: Assessment/Dx: Frequent thromboembolic event, Persistent Atrial fibrillation, CAD, CABG, Ischemic cardiomyopathy, Aortic stenosis, Chest pain, Pulmonary hypertension Plan: CAD/CABG: Recent coronary angiography at [facility] showed patent grafts with distal disease not am and able to PCI. Medical therapy was recommended. On Plavix and Eliquis. Recurrent CVA/thromboembolic events: On Eliquis. Persistent atrial fibrillation on amiodarone and Eliquis. Also on diltiazem and beta sammie. Ischemic cardiomyopathy: LVEF 45 percent. On metoprolol. Pulmonary hypertension, continue to follow clinically. Thank you for your consultation. Please call me if you have any questions. Malcolm House MD, FACP, FACC, FSCAI, FHRS, CCDS Interventional Cardiology Cardiac Electrophysiology Vascular Medicine and Endovascular Interventions Boby HOUSE MD Apr 15, 2018 2:09 pm
--- NOTE | 2018-04-15 15:29 | Physical Therapy Daily Note ---
PT Daily Note-Current Subjective Pt in bed pre tx, agrees to PT, no pain to report Appearance Pt in bed post tx w/ phone, call light, tray, all needs met Mental Status Patient Orientation: Person, Place, Time Transfers Functional [place] Measure 0=Not Assessed/NA 4=Minimal Assistance 1=Total Assistance 5=Supervision or Setup 2=Maximal Assistance 6=Modified [place] 3=Moderate Assistance 7=Complete IndependenceIRFPAI Quality Coding Scale 6 Independent with activity with or without an assistive device 5 Patient requires set up or clean up by helper. Patient completes activity by themselves 4 Supervision or touching assist (CGA). [place] provide cues , steadying assist 3 The helper provides less than half the effort to complete the activity 2 The helper provides more than half the effort to complete the activity 1 Dependent. The helper does all the effort to complete an activity 7 Patient refused to complete or attempt activity 9 The patient did not perform the activity before the current illness or injury 88 Not attempted due to Medical conditions or safety concerns Transfers (B, C, W/C) (FIM): 3 Scootin Rollin Supine to/from Sit: 3 Sit to/from Stand: 3 Bed to/from Chair: 3 Pt requires modA for sit/stand, bed/chair, sit/supine transfers w/ cues for hand placement and safety. Sit/stand requires cuing for leaning towards R side for stability during lift off. Pt reports feeling very fatigued today due to lack of sleep last night. Weight Bearing Right Lower Extremity: Right Weight Bearing/Tolerated Left Lower Extremity: Left Weight Bearing/Tolerated Wheelchair Training Does the Pt Use a Wheelchair?: Yes Wheelchair (FIM): 5 Distance: 150'x2 Wheelchair Level of Assist: 5 Type of Wheelchair: Manual Pt uses WCH to/from gym w/ SBA using RUE and RLE for propulsion Exercises Seated Therapy Exercises: Long arc quads (5', 3#) Neuromuscular Seated toe taps on cones 5' w/ LLE for coordination Treatments WCH and mobility training, functional strengthening, coordination training Assessment Current Status: Fair Progress Pt very fatigued today as evident w/ increased assistance needed for transfers, improved coordination w/ LLE, increased endurance during LAQs for time PT Short Term Goals Short Term Goals Time Frame: Apr 02, 2018 Transfers (B,C,W/C) (FIM): 3 Gait (FIM): 1 Gait Distance Comment: 20' Gait Level of Assist: 2 Gait Assistive Device: Cane Large Base Quad Wheelchair Distance: 150' PT Manager Retail Sales Goals Manager Retail Sales Goals PT Long-Term Goals Time Frame: Apr 16, 2018 Transfers (B,C,W/C) (FIM): 4 Sit to Lying (QC): 3 Lying-Sitting on Side/Bed(QC): 3 Sit to Stand (QC): 3 Rollin Roll Left to Right (QC): 3 Chair/Ugu-yl-Zshjj Xfer(QC): 3 Car Transfer (QC): 3 Gait (FIM): 2 Distance: 50' Walk 10 feet (QC): 3 Walk 10ft-Uneven Surface(QC): 3 Walk 50ft with 2 Turns (QC): 3 Gait Level of Assist: 4 Gait Assistive Device: Cane Large Base Quad Wheelchair (FIM): 6 Distance: 200' Wheel 50 feet with 2 turns (QC: 6 PT Plan Problem List Problem List: Activity Tolerance, Functional Strength, Safety, Balance, Gait, Transfer, Bed Mobility, ROM Treatment/Plan Treatment Plan: Continue Plan of Care Treatment Plan: Bed Mobility, Concurrent Therapy, Education, Functional Activity Sukhdeep, Functional Strength, Group Therapy, Gait, Safety, Therapeutic Exercise, Transfers Treatment Duration: Apr 16, 2018 Frequency: At least 5 of 7 days/Wk (IRF) Estimated Hrs Per Day: 1.5 hours per day Patient and/or Family Agrees t: Yes Safety Risks/Education Patient Education: Gait Training, Transfer Techniques, Correct Positioning, W/ C Management, Safety Issues Teaching Recipient: Patient Teaching Methods: Demonstration, Discussion Response to Teaching: Reinforcement Needed Time/GCodes Time In: 1400 Time Out: 1500 Total Billed Treatment Time: 30 Total Billed Treatment 1 visit [facility] 15' EX 15' CAMMY BLACK PT Apr 15, 2018 15:29
[2018-04-15 18:20] VITALS: BP 130/63
[2018-04-15] MEDS: ATORVASTATIN 40 MG (LIPITOR) TABLET PO SCH (20:25)
[2018-04-15] MEDS: MELATONIN 3 MG TABLET PO SCH (20:25)
[2018-04-15] MEDS: POLYETHYLENE GLYCOL 17 GM (MIRALAX) PACK PO SCH (20:34)
[2018-04-16 05:46] VITALS: BP 114/72
[2018-04-16] MEDS: inSUlin ASPART (NovoLOG) 1 UNIT/0.01 ML (CHARGE PER UNIT) SC SCH ×4 (06:18→20:14)
--- NOTE | 2018-04-16 07:55 | PM & R (SOAP) Progress Note ---
Subjective This was a face to face visit with the patient. Date Seen by Provider: Apr 16, 2018 Time Seen by Provider: 07:30 Subjective/Events-last exam Patient was seen in his room this AM Patient Mod assist for transfers Patient still reports some difficulty with staying asleep at night Meds reviewed Review of Systems Neurological: Weakness Objective Physician Exam Last Set of Vital Signs Vital Signs Date Time Temp Pulse Resp B/P (MAP) Pulse Ox O2 Delivery O2 Flow Rate FiO2 04/16/18 05:46 98.8 55 18 114/72 (86) 96 Room Air Capillary Refill : I&O Intake and Output 04/16/18 00:00 Intake Total 1180 ml Balance 1180 ml Intake Oral 1180 ml # Voids 8 # Bowel Movements 3 General: Alert, Cooperative, No Acute Distress HEENT: Atraumatic, PERRLA, EOMI, Mucous Memb Moist/[place], Other (Dysphagia dysarthria ) Neck: Supple, No JVD Lungs: Clear to Auscultation, Other (Decreased breath sounds) Heart: Normal S1, Normal S2, Other (Systolic murmur at the left sternal border) Abdomen: Normal Bowel Sounds, Soft, No Tenderness Extremities: No Clubbing, No Cyanosis, No Edema Skin: No Rashes, No Breakdown Neuro: Other (Can SLR bilayeral with Left arm still weak) Psych/Mental Status: Mental Status NL, Mood NL Results Lab Data Laboratory Tests 04/13/18 11:49: Glucometer 204H 04/13/18 16:13: Glucometer 171H 04/13/18 20:23: Glucometer 241H 04/14/18 05:08: Glucometer 130H 04/14/18 11:09: Glucometer 246H 04/14/18 16:01: Glucometer 223H 04/14/18 20:17: Glucometer 212H 04/15/18 06:26: Glucometer 91 04/15/18 11:05: Glucometer 234H 04/15/18 16:59: Glucometer 210H 04/15/18 20:14: Glucometer 218H 04/16/18 06:13: Glucometer 142H Assessment/Plan Assessment and Plan RT cva with Left HP improving LE>UE Dysphagia on thickened liquids Chronic a FIB controlled with med CAD Insomnia meds to be adjusted further as needed Constipation treated RT Neck pain improved Mild to moderate CHF compensated Depression improved with med Plan Continue PT/OT/ST Team Conference held yesterday-see report for full functional update and POC and ELOS Adjust meds as needed f/U with PCP PRN Co-Morbidities that are continuing to impact the rehab process: (include details ) EMMY JULIEN MD Apr 16, 2018 07:55
[2018-04-16] MEDS: inSUlin DETERMIR 1 UNIT/0.01 ML (LEVEMIR) CHARGE PER UNIT SQ SCH ×2 (09:00→20:13)
[2018-04-16] MEDS: APIXABAN 5 MG (ELIQUIS) TABLET PO SCH ×2 (09:01→20:13)
[2018-04-16] MEDS: LORATADINE (CLARITIN) 10 MG TAB PO SCH (09:01)
[2018-04-16] MEDS: AMIODARONE 200 MG (CORDARONE) TAB PO SCH ×2 (09:02→20:13)
[2018-04-16] MEDS: FAMOTIDINE 20 MG (PEPCID) TABLET PO SCH ×2 (09:03→20:13)
[2018-04-16] MEDS: CLOPIDOGREL 75 MG (PLAVIX) TABLET PO SCH (09:03)
[2018-04-16] MEDS: LOSARTAN 25 MG (COZAAR) TAB PO SCH (09:05)
[2018-04-16] MEDS: FLUTICASONE NASAL SPRAY (FLONASE) 16 GM BTL NS SCH (09:06)
[2018-04-16] MEDS: SENNA W/DOCUSATE (SENOKOT S) TABLET PO SCH ×2 (09:07→20:18)
--- NOTE | 2018-04-16 09:11 | Progress Note-Hospitalist ---
JORDONTHEODORE MED STUDENT 04/16/18 0911: Subjective HPI/CC On Admission Date Seen by Provider: Apr 16, 2018 Time Seen by Provider: 08:52 Mr. Guerin is a frail 73-year-old white male who developed abrupt onset of left upper quadrant pain on 18 March. 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 He was discharged with pain medication. On [address] scanning of the chest with contrast for evaluation of subcarinal fullness. It was felt to represent adenopathy a little more prominent than a previous CT scan of the chest in 2012 per radiologist report. No pulmonary abnormalities were reported. He also had significant cholelithiasis without symptoms to suggest cholecystitis. Sometime shortly thereafter he developed left-sided weakness and was transferred to [place] where he was noted to have a right sided CVA without evidence for significant extracranial vascular disease. He ultimately underwent cardiac catheterization as well which reportedly revealed mild hypokinesis with estimated ejection fraction of 40 percent he did have 3 patent grafts he had some disease in the PDA distal to his RCA graft and also had some disease in the obtuse marginal system that was not bypassed. Medical management was opted for however and the patient did not undergo any endovascular-based therapy. He is transferred back to our rehabilitation unit to continue redilatation for deficits that include left-sided hemiparesis as well as dysarthria and mild dysphasia. He reports that he has been swallowing without coughing on thickened liquids and solids. He denies abdominal pain but does note some sores in his mouth. He states that while he still has significant weakness he has had improvement in movement of the left upper extremity and left lower extremity. The left lower extremity is been affected to a lesser degree than left upper extremity. Past medical history seen for long-standing poorly controlled insulin requiring type II diabetes due to poor compliance with bolus therapy for many years. 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 For this reason he had not been on anticoagulant therapy for known underlying persistent atrial fibrillation. He had no previous known history of thromboembolic disease. He has been placed on eliquis and reports no change in vision and also denies ocular pain. He also was diagnosed with urinary tract infection and discharged on Levaquin to our facility. He also has known significant peripheral neuropathy and pressure ulceration with past osteomyelitis of the great toe requiring partial amputation on the left. In the past she's had multiple foot ulcers but is been some time since he last required treatment for diabetic-related foot ulceration. Subjective/Events-last exam Pt is doing well- no concerns Denies any pain PT going well +BM Reviewed labs and medications Objective Exam Vital Signs Vital Signs Date Time Temp Pulse Resp B/P (MAP) Pulse Ox O2 Delivery O2 Flow Rate FiO2 04/16/18 05:46 98.8 55 18 114/72 (86) 96 Room Air Capillary Refill : Results/Procedures Lab Patient resulted labs reviewed. Assessment/Plan Assessment and Plan Assess & Plan/Chief Complaint CVA Chronic A Fib Type II diabetes Plan: Anticoagulants Blood glucose control Continue PT Monitor labs Clinical Quality Measures DVT/VTE Risk/Contraindication: Risk Factor Score Per Nursin RFS Level Per Nursing on Admit: 4+=Very High ANDRÉS WRIGHT DO 05/05/18 1133: Objective Exam General Appearance: No Apparent Distress Assessment/Plan Assessment and Plan Assess & Plan/Chief Complaint as above THEODORE RUVALCABA MED STUDENT Apr 16, 2018 09:11 ANDRÉS WRIGHT DO May 05, 2018 11:33
--- NOTE | 2018-04-16 10:00 | Physical Therapy Daily Note ---
PT Daily Note-Current Subjective Pt in bed pre tx, agrees to PT, no pain to report. Pt states he is still struggling to sleep at night Appearance Pt in wheelchair post tx, OT is in the room to begin treatment Mental Status Patient Orientation: Person, Place, Time Transfers Functional [place] Measure 0=Not Assessed/NA 4=Minimal Assistance 1=Total Assistance 5=Supervision or Setup 2=Maximal Assistance 6=Modified [place] 3=Moderate Assistance 7=Complete IndependenceIRFPAI Quality Coding Scale 6 Independent with activity with or without an assistive device 5 Patient requires set up or clean up by helper. Patient completes activity by themselves 4 Supervision or touching assist (CGA). [place] provide cues , steadying assist 3 The helper provides less than half the effort to complete the activity 2 The helper provides more than half the effort to complete the activity 1 Dependent. The helper does all the effort to complete an activity 7 Patient refused to complete or attempt activity 9 The patient did not perform the activity before the current illness or injury 88 Not attempted due to Medical conditions or safety concerns Transfers (B, C, W/C) (FIM): 3 Supine to/from Sit: 3 Sit to/from Stand: 4 Supine<->sit modA, pt needs help sitting up and getting both legs out of bed. Sit<->stand Johan with cues to keep nose of R knee and push through right leg to stand. Pt needs cues for reaching back for chair when sitting, tends to hold onto rodolfo-walker Weight Bearing Right Lower Extremity: Right Weight Bearing/Tolerated Left Lower Extremity: Left Weight Bearing/Tolerated Gait Training Does the Patient Walk?: Yes Gait (FIM): 2 Distance (FIM): 4=153-64 ft Distance: 75'x4 Gait Level of Assist: 3 Gait Persons Needed: 1 Gait Assistive Device: Walker Rodolfo Pt ambulates to/from gym w/ modA using rodolfo-walker, step-to gait pattern. Pt demonstrates L knee hyperextension with flexed posture, cues needed for leaning on rodolfo-walker and RLE during LLE swing phase Exercises Standing: Side steps, Step-ups Parallel bars step onto pink step w/ LLE side step 2x20, forward step 1x20 Neuromuscular standing balance in parallel bars 3x2min w/ CGA, pt grabs bar w/ R hand if he feels LOB Treatments gait and mobility training, balance training Assessment Current Status: Fair Progress improved endurance and stability during gait training and less assistance needed for sit<->stand transfers today, pt benefits from having tx an hour later this morning PT Short Term Goals Short Term Goals Time Frame: Apr 02, 2018 Transfers (B,C,W/C) (FIM): 3 Gait (FIM): 1 Gait Distance Comment: 20' Gait Level of Assist: 2 Gait Assistive Device: Cane Large Base Quad Wheelchair Distance: 150'x2 PT Vegetable Vendor Goals Senior Living Goals PT Senior Living Goals Time Frame: Apr 16, 2018 Transfers (B,C,W/C) (FIM): 4 Sit to Lying (QC): 3 Lying-Sitting on Side/Bed(QC): 3 Sit to Stand (QC): 3 Rollin Roll Left to Right (QC): 3 Chair/Bhc-ro-Gqekc Xfer(QC): 3 Car Transfer (QC): 3 Gait (FIM): 2 Distance: 50' Walk 10 feet (QC): 3 Walk 10ft-Uneven Surface(QC): 3 Walk 50ft with 2 Turns (QC): 3 Gait Level of Assist: 4 Gait Assistive Device: Cane Large Base Quad Wheelchair (FIM): 6 Distance: 200' Wheel 50 feet with 2 turns (QC: 6 PT Plan Problem List Problem List: Activity Tolerance, Functional Strength, Safety, Balance, Gait, Transfer, Bed Mobility, ROM Treatment/Plan Treatment Plan: Continue Plan of Care Treatment Plan: Bed Mobility, Concurrent Therapy, Education, Functional Activity Sukhdeep, Functional Strength, Group Therapy, Gait, Safety, Therapeutic Exercise, Transfers Treatment Duration: Apr 16, 2018 Frequency: At least 5 of 7 days/Wk (IRF) Estimated Hrs Per Day: 1.5 hours per day Patient and/or Family Agrees t: Yes Safety Risks/Education Patient Education: Gait Training, Transfer Techniques, Correct Positioning, Safety Issues Teaching Recipient: Patient Teaching Methods: Demonstration, Discussion Response to Teaching: Reinforcement Needed Time/GCodes Time In: 900 Time Out: 1000 Total Billed Treatment Time: 60 Total Billed Treatment 1 visit [facility] 30' NM 30' CAMMY BLACK PT Apr 16, 2018 10:00
--- NOTE | 2018-04-16 10:54 | Occupational Ther Daily Note ---
OT Current Status-Daily Note Subjective Took over care of pt from PT. Pt agrees to therapy. C/o fatigue. Mental Status/Objective Patient Orientation: Person, Place, Time, Situation Functional Hand Measure 0=Not Assessed/NA 4=Minimal Assistance 1=Total Assistance 5=Supervision or Setup 2=Maximal Assistance 6=Modified Hand 3=Moderate Assistance 7=Complete Hand ADL-Treatment Functional Hand Measure 0=Not Assessed/NA 4=Minimal Assistance 1=Total Assistance 5=Supervision or Setup 2=Maximal Assistance 6=Modified Hand 3=Moderate Assistance 7=Complete IndependenceIRFPAI Quality Coding Scale 6 Independent with activity with or without an assistive device 5 Patient requires set up or clean up by helper. Patient completes activity by themselves 4 Supervision or touching assist (CGA). [place] provide cues , steadying assist 3 The helper provides less than half the effort to complete the activity 2 The helper provides more than half the effort to complete the activity 1 Dependent. The helper does all the effort to complete an activity 7 Patient refused to complete or attempt activity 9 The patient did not perform the activity before the current illness or injury 88 Not attempted due to Medical conditions or safety concerns Grooming (FIM): 6 (Completed by self sitting at w/c level.) Oral Hygiene (QC): 6 Pt transferred from w/c to recliner with min A using hemiwalker. After therapy , pt sitting in recliner with call light/phone in reach. All needs met in room. OT Short Term Goals Short Term Goals Time Frame: Apr 09, 2018 Eating(FIM): 6 Grooming(FIM): 5 Bathing(FIM): 4 Upper Body Dressing(FIM): 4 Lower Body Dressing(FIM): 3 Toileting(FIM): 4 Transfers (B,C,W/C) (FIM): 3 Toilet/Commode Transfer(FIM): 4 Shower Transfer(FIM): 4 Additional Short Term Goals: 1-Demonstrate ADL Tasks, 2-Verbalize Understanding , 3-ImproveStrength/Sukhdeep 1=Demonstrate adherence to instructed precautions during ADL tasks. 2=Patient will verbalize/demonstrate understanding of assistive devices/ modifications for ADL. 3=Patient will improve strength/tolerance for activity to enable patient to perform ADL's. OT Long-Term Goals [employer] Developer Goals Time Frame: Apr 23, 2018 Eating (FIM): 6 Eating (QC): 6 Groomin Oral Hygiene (QC): 6 Bathing(FIM): 5 Shower/Bathe Self (QC): 5 Upper Body Dressing(FIM): 5 Upper Body Dressing (QC): 5 Lower Body Dressing(FIM): 5 Lower Body Dressing (QC): 5 On/Off Footwear (QC): 5 Toileting(FIM): 6 Toileting Hygiene (QC): 6 Transfers (B,C,W/C) (FIM): 6 Toilet/Commode Transfer(FIM): 6 Toilet/Commode Transfer (QC): 6 Shower Transfer(FIM): 5 Additional Goals: 1-Demonstrate ADL Tasks, 2-Verbalize Understanding, 3- ImproveStrength/Sukhdeep 1=Demonstrate adherence to instructed precautions during ADL tasks. 2=Patient will verbalize/demonstrate understanding of assistive devices/ modifications for ADL. 3=Patient will improve strength/tolerance for activity to enable patient to perform ADL's. OT Education/Plan Discharge Recommendations Plan/Recommendations: Continue POC Treatment Plan/Plan of Care Patient would benefit from OT for education, treatment and training to promote independence in ADL's, mobility, safety and/or upper extremity function for ADL' s. Plan of Care: ADL Retraining, Functional Mobility, Group Exercise/Act as Ind, UE Funct Exercise/Act Treatment Duration: Apr 23, 2018 Frequency: At least 5 of 7 days/Wk (IRF) Estimated Hrs Per Day: 1.5 hours per day Agreement: Yes Rehab Potential: Fair Time/GCodes Start Time: 10:00 Stop Time: 10:15 Total Time Billed (hr/min): 15 Billed Treatment Time 1 visit-ADL 1 (15 min) JIMMY DHILLON Apr 16, 2018 10:54
--- NOTE | 2018-04-16 11:33 | Speech Therapy Daily Note ---
Speech Daily Progress Note Subjective Date Seen by Provider: Apr 16, 2018 Time Seen by Provider: 10:30 Pt alert and up in chair. Greeted therapist first. Pain Numeric Pain Scale: 0-No Pain Objective Pt completed dysphagia exercises with supervision. 10x each. Ice chips - gave pt ice chips x7. Noted "wet" voice quality x1. Instructed pt to swallow hard. Appeared to clear with 2-3 additional dry swallows. Did not appear to penetrate lower than the level of the vocal folds. Assessment Assessment Current Status: Good Progress Treatment Plan Continue Plan of Care Communication Comprehension: 6 Expression: 7 Social Cognition Social Interaction: 7 Problem Solvin Memory: 7 Speech Short Term Goals Short Term Goals Short Term Goals Pt will complete Oral Motor Exercises with min assist. Time Frame-ST week Speech Research Assoc Goals Group Home Goals Pt will tolerate regular diet with thin liquids with no s/s of aspiration. Time Frame: 3 weeks Speech-Plan Patient/Family Goals Patient/Family Goals: to drink thin liquds. Treatment Plan Speech Therapy Treatment Plan: Continue Plan of Care pt continues to be very motivated to improve. Treatment Duration: Mar 26, 2018 Frequency: 5 times per week Estimated Hrs Per Day: .5 hour per day Rehab Potential: Fair Pt/Family Agrees to Plan: Yes Safety Risks/Education Teaching Recipient: Patient, Family Teaching Methods: Discussion Response to Teaching: Verbalize Understanding Time Speech Therapy Time In: 10:30 Speech Therapy Time Out: 11:00 Total Billed Time: 30 Billed Treatment Time 1, DYST No MAGALY GARAY Apr 16, 2018 11:33
--- NOTE | 2018-04-16 12:00 | Occupational Ther Daily Note ---
OT Current Status-Daily Note Subjective Pt sitting in recliner. Agrees to therapy. No c/o pain. Mental Status/Objective Patient Orientation: Person, Place, Time, Situation Functional [place] Measure 0=Not Assessed/NA 4=Minimal Assistance 1=Total Assistance 5=Supervision or Setup 2=Maximal Assistance 6=Modified [place] 3=Moderate Assistance 7=Complete [place] ADL-Treatment Pt transferred to shower chair with cut out, mod A using victoriano walker. Transferred to shower in shower chair. Completed bathing and drying after set up using hand held shower and shower chair with cut out, close SBA. Max A when standing while pt hikes pants over hips. Pt is progressing with donning/ doffing lower body clothing over feet, min A. Pt requires cues to go through standing sequence prior to reaching for pants to hike over hips. Assist to don shirt due to pt unable to manipulate shirt. Assist to don socks, pt doffed socks by self crossing LE over knee. Pt transferred to bed from w/c with squat pivot with min A. After therapy, pt lying in bed with call light/phone in reach. Nrsg present in room. All needs met in room. Functional [place] Measure 0=Not Assessed/NA 4=Minimal Assistance 1=Total Assistance 5=Supervision or Setup 2=Maximal Assistance 6=Modified [place] 3=Moderate Assistance 7=Complete IndependenceIRFPAI Quality Coding Scale 6 Independent with activity with or without an assistive device 5 Patient requires set up or clean up by helper. Patient completes activity by themselves 4 Supervision or touching assist (CGA). [place] provide cues , steadying assist 3 The helper provides less than half the effort to complete the activity 2 The helper provides more than half the effort to complete the activity 1 Dependent. The helper does all the effort to complete an activity 7 Patient refused to complete or attempt activity 9 The patient did not perform the activity before the current illness or injury 88 Not attempted due to Medical conditions or safety concerns Bathing (FIM): 5 Shower/Bathe Self (QC): 3 Upper Body (FIM): 3 Upper Body Dressing (QC): 3 Lower Body Dressing (FIM): 2 Lower Body Dressing (QC): 2 On/Off Footwear (QC): 3 Toileting (FIM): 3 (Pt able to cleanse self sitting on toilet, mod A to stand while pt hikes over hips.) Toileting Hygiene (QC): 2 Shower Transfer(FIM): 1 OT Short Term Goals Short Term Goals Time Frame: Apr 09, 2018 Eating(FIM): 6 Grooming(FIM): 5 Bathing(FIM): 4 Upper Body Dressing(FIM): 4 Lower Body Dressing(FIM): 3 Toileting(FIM): 4 Transfers (B,C,W/C) (FIM): 3 Toilet/Commode Transfer(FIM): 4 Shower Transfer(FIM): 4 Additional Short Term Goals: 1-Demonstrate ADL Tasks, 2-Verbalize Understanding , 3-ImproveStrength/Sukhdeep 1=Demonstrate adherence to instructed precautions during ADL tasks. 2=Patient will verbalize/demonstrate understanding of assistive devices/ modifications for ADL. 3=Patient will improve strength/tolerance for activity to enable patient to perform ADL's. OT Residential Goals Method Consultant Goals Time Frame: Apr 23, 2018 Eating (FIM): 6 Eating (QC): 6 Groomin Oral Hygiene (QC): 6 Bathing(FIM): 5 Shower/Bathe Self (QC): 5 Upper Body Dressing(FIM): 5 Upper Body Dressing (QC): 5 Lower Body Dressing(FIM): 5 Lower Body Dressing (QC): 5 On/Off Footwear (QC): 5 Toileting(FIM): 6 Toileting Hygiene (QC): 6 Transfers (B,C,W/C) (FIM): 6 Toilet/Commode Transfer(FIM): 6 Toilet/Commode Transfer (QC): 6 Shower Transfer(FIM): 5 Additional Goals: 1-Demonstrate ADL Tasks, 2-Verbalize Understanding, 3- ImproveStrength/Sukhdeep 1=Demonstrate adherence to instructed precautions during ADL tasks. 2=Patient will verbalize/demonstrate understanding of assistive devices/ modifications for ADL. 3=Patient will improve strength/tolerance for activity to enable patient to perform ADL's. OT Education/Plan Discharge Recommendations Plan/Recommendations: Continue POC Treatment Plan/Plan of Care Patient would benefit from OT for education, treatment and training to promote independence in ADL's, mobility, safety and/or upper extremity function for ADL' s. Plan of Care: ADL Retraining, Functional Mobility, Group Exercise/Act as Ind, UE Funct Exercise/Act Treatment Duration: Apr 23, 2018 Frequency: At least 5 of 7 days/Wk (IRF) Estimated Hrs Per Day: 1.5 hours per day Agreement: Yes Rehab Potential: Fair Time/GCodes Start Time: 11:00 Stop Time: 12:00 Total Time Billed (hr/min): 60 Billed Treatment Time 1 visit-ADL 4 (60 min) JIMMY DHILLON Apr 16, 2018 12:00
--- NOTE | 2018-04-16 15:01 | Physical Therapy Daily Note ---
PT Daily Note-Current Subjective Pt in bed pre tx, agrees to PT, no pain to report Appearance Pt in bed post tx, w/ phone, call light, tray, all needs met Mental Status Patient Orientation: Person, Place, Time Transfers Functional [place] Measure 0=Not Assessed/NA 4=Minimal Assistance 1=Total Assistance 5=Supervision or Setup 2=Maximal Assistance 6=Modified [place] 3=Moderate Assistance 7=Complete IndependenceIRFPAI Quality Coding Scale 6 Independent with activity with or without an assistive device 5 Patient requires set up or clean up by helper. Patient completes activity by themselves 4 Supervision or touching assist (CGA). [place] provide cues , steadying assist 3 The helper provides less than half the effort to complete the activity 2 The helper provides more than half the effort to complete the activity 1 Dependent. The helper does all the effort to complete an activity 7 Patient refused to complete or attempt activity 9 The patient did not perform the activity before the current illness or injury 88 Not attempted due to Medical conditions or safety concerns Transfers (B, C, W/C) (FIM): 3 Supine to/from Sit: 3 Sit to/from Stand: 3 Bed to/from Chair: 3 Pt transfers modA with all transfers, needs cues for getting nose over R knee and leaning to R side during sit to stand, needs help w/ legs in/out of bed for supine<->sit Weight Bearing Right Lower Extremity: Right Weight Bearing/Tolerated Left Lower Extremity: Left Weight Bearing/Tolerated Wheelchair Training Does the Pt Use a Wheelchair?: Yes Wheelchair (FIM): 3 Distance: 150'x2 Wheelchair Level of Assist: 5 Type of Wheelchair: Manual Pt uses w/c to/from gym w/ supervision, uses RLE and RUE for propulsion, Exercises NuStep Minutes: 15 NuStep Workload: 3 Treatments wheelchair and mobility training, endurance training Assessment Current Status: Fair Progress Pt needs fewer cues for sit<->stand transfers, improved endurance and mobility PT Short Term Goals Short Term Goals Time Frame: Apr 02, 2018 Transfers (B,C,W/C) (FIM): 3 Gait (FIM): 1 Gait Distance Comment: 20' Gait Level of Assist: 2 Gait Assistive Device: Cane Large Base Quad Wheelchair Distance: 150'x2 PT Nurse Emergency Room Goals Nurse Emergency Room Goals PT Nurse Emergency Room Goals Time Frame: Apr 16, 2018 Transfers (B,C,W/C) (FIM): 4 Sit to Lying (QC): 3 Lying-Sitting on Side/Bed(QC): 3 Sit to Stand (QC): 3 Rollin Roll Left to Right (QC): 3 Chair/Dyj-ju-Zccky Xfer(QC): 3 Car Transfer (QC): 3 Gait (FIM): 2 Distance: 50' Walk 10 feet (QC): 3 Walk 10ft-Uneven Surface(QC): 3 Walk 50ft with 2 Turns (QC): 3 Gait Level of Assist: 4 Gait Assistive Device: Cane Large Base Quad Wheelchair (FIM): 6 Distance: 200' Wheel 50 feet with 2 turns (QC: 6 PT Plan Problem List Problem List: Activity Tolerance, Functional Strength, Safety, Balance, Gait, Transfer, Bed Mobility, ROM Treatment/Plan Treatment Plan: Continue Plan of Care Treatment Plan: Bed Mobility, Concurrent Therapy, Education, Functional Activity Sukhdeep, Functional Strength, Group Therapy, Gait, Safety, Therapeutic Exercise, Transfers Treatment Duration: Apr 16, 2018 Frequency: At least 5 of 7 days/Wk (IRF) Estimated Hrs Per Day: 1.5 hours per day Patient and/or Family Agrees t: Yes Safety Risks/Education Patient Education: Gait Training, Transfer Techniques, Correct Positioning, Safety Issues Teaching Recipient: Patient Teaching Methods: Demonstration, Discussion Response to Teaching: Reinforcement Needed Time/GCodes Time In: 1400 Time Out: 1430 Total Billed Treatment Time: 30 Total Billed Treatment [address] [facility] 15' EX 15' JIMMY MOURA PT Apr 16, 2018 15:01
[2018-04-16 17:38] VITALS: BP 130/64
[2018-04-16] MEDS: ZOLPIDEM 5 MG (AMBIEN) TAB PO PRN (20:13)
[2018-04-16] MEDS: ATORVASTATIN 40 MG (LIPITOR) TABLET PO SCH (20:13)
[2018-04-16] MEDS: POLYETHYLENE GLYCOL 17 GM (MIRALAX) PACK PO SCH (20:18)
[2018-04-16] MEDS: MELATONIN 3 MG TABLET PO SCH (20:18)
[2018-04-17 06:00] VITALS: BP 113/67
[2018-04-17] MEDS: inSUlin ASPART (NovoLOG) 1 UNIT/0.01 ML (CHARGE PER UNIT) SC SCH ×4 (06:39→21:40)
[2018-04-17] MEDS: SENNA W/DOCUSATE (SENOKOT S) TABLET PO SCH ×2 (07:24→21:00)
[2018-04-17] MEDS: APIXABAN 5 MG (ELIQUIS) TABLET PO SCH ×2 (08:16→21:35)
[2018-04-17] MEDS: inSUlin DETERMIR 1 UNIT/0.01 ML (LEVEMIR) CHARGE PER UNIT SQ SCH ×2 (08:16→21:40)
[2018-04-17] MEDS: LORATADINE (CLARITIN) 10 MG TAB PO SCH (08:16)
[2018-04-17] MEDS: CLOPIDOGREL 75 MG (PLAVIX) TABLET PO SCH (08:16)
[2018-04-17] MEDS: FAMOTIDINE 20 MG (PEPCID) TABLET PO SCH ×2 (08:16→21:35)
[2018-04-17] MEDS: FLUTICASONE NASAL SPRAY (FLONASE) 16 GM BTL NS SCH (08:17)
[2018-04-17] MEDS: LOSARTAN 25 MG (COZAAR) TAB PO SCH (08:17)
[2018-04-17] MEDS: AMIODARONE 200 MG (CORDARONE) TAB PO SCH ×2 (08:17→21:35)
--- NOTE | 2018-04-17 08:49 | PM & R (SOAP) Progress Note ---
Subjective This was a face to face visit with the patient. Date Seen by Provider: Apr 17, 2018 Time Seen by Provider: 07:55 Subjective/Events-last exam Patient was seen in his room this AM Patient Min assist for transfers Patient indicates that he slept better with Ambien available. Objective Physician Exam Last Set of Vital Signs Vital Signs Date Time Temp Pulse Resp B/P (MAP) Pulse Ox O2 Delivery O2 Flow Rate FiO2 04/17/18 08:42 Room Air 04/17/18 06:00 97.6 56 18 113/67 (82) 97 Capillary Refill : I&O Intake and Output 04/17/18 00:00 Intake Total 1000 ml Balance 1000 ml Intake Oral 1000 ml # Voids 4 # Bowel Movements 1 General: Alert, Cooperative, No Acute Distress HEENT: Atraumatic, PERRLA, EOMI, Mucous Memb Moist/[place], Other (Dysphagia dysarthria ) Neck: Supple, No JVD Lungs: Clear to Auscultation, Other (Decreased breath sounds) Heart: Normal S1, Normal S2, Other (Systolic murmur at the left sternal border) Abdomen: Normal Bowel Sounds, Soft, No Tenderness Extremities: No Clubbing, No Cyanosis, No Edema Skin: No Rashes, No Breakdown Neuro: Other (Can SLR bilayeral with Left arm still weak) Psych/Mental Status: Mental Status NL, Mood NL Results Lab Data Laboratory Tests 04/14/18 11:09: Glucometer 246H 04/14/18 16:01: Glucometer 223H 04/14/18 20:17: Glucometer 212H 04/15/18 06:26: Glucometer 91 04/15/18 11:05: Glucometer 234H 04/15/18 16:59: Glucometer 210H 04/15/18 20:14: Glucometer 218H 04/16/18 06:13: Glucometer 142H 04/16/18 11:49: Glucometer 260H 04/16/18 16:31: Glucometer 245H 04/16/18 20:11: Glucometer 170H 04/17/18 06:35: Glucometer 126H Assessment/Plan Assessment and Plan RT cva with Left HP Dysphagia on thickened liquids Chronic A FIB controlled CAD Insomnia improved with adjustment in meds Constipation treated Rt neck pain improved Mild to moderate CHF compensated Deprssion improved with med Plan Continue PT/OT/St Next Team Conference 04-22-18 Goal Return home with spouse at highest level of functional Indopendence possible Co-Morbidities that are continuing to impact the rehab process: (include details ) EMMY JULIEN MD Apr 17, 2018 08:49
--- NOTE | 2018-04-17 09:09 | Occupational Ther Daily Note ---
OT Current Status-Daily Note Subjective Pt lying in bed with eyes closed, opened to name. Pt agrees to therapy. No c/ o pain. Skin tear on forearm noted, reported to nrsg. Mental Status/Objective Patient Orientation: Person, Place, Time, Situation Functional [place] Measure 0=Not Assessed/NA 4=Minimal Assistance 1=Total Assistance 5=Supervision or Setup 2=Maximal Assistance 6=Modified [place] 3=Moderate Assistance 7=Complete [place] ADL-Treatment Pt declined shower and change of clothing today. Transferred with victoriano walker from EOB to w/c, verbal cues and mod A. Pt sitting in w/c at sink to complete grooming by self. Pt doffed socks by crossing LE's over knees. Mod A to don socks and shoes. Functional [place] Measure 0=Not Assessed/NA 4=Minimal Assistance 1=Total Assistance 5=Supervision or Setup 2=Maximal Assistance 6=Modified [place] 3=Moderate Assistance 7=Complete IndependenceIRFPAI Quality Coding Scale 6 Independent with activity with or without an assistive device 5 Patient requires set up or clean up by helper. Patient completes activity by themselves 4 Supervision or touching assist (CGA). [place] provide cues , steadying assist 3 The helper provides less than half the effort to complete the activity 2 The helper provides more than half the effort to complete the activity 1 Dependent. The helper does all the effort to complete an activity 7 Patient refused to complete or attempt activity 9 The patient did not perform the activity before the current illness or injury 88 Not attempted due to Medical conditions or safety concerns Grooming (FIM): 6 Oral Hygiene (QC): 6 On/Off Footwear (QC): 3 Other Treatment Pt maneuvered w/c to therapy gym, gravitated toward R side. Arm bike completed to increase AROM of L UE and strengthening, L hand wrapped for sustained external grinder on handle. Pt rotated arm bike forwards/backwards with 15 dowell resistance for 12 min, 2 recovery breaks. After therapy, pt lying in bed with call light/ phone in reach. All needs met in room. OT Short Term Goals Short Term Goals Time Frame: Apr 09, 2018 Eating(FIM): 6 Grooming(FIM): 5 Bathing(FIM): 4 Upper Body Dressing(FIM): 4 Lower Body Dressing(FIM): 3 Toileting(FIM): 4 Transfers (B,C,W/C) (FIM): 3 Toilet/Commode Transfer(FIM): 4 Shower Transfer(FIM): 4 Additional Short Term Goals: 1-Demonstrate ADL Tasks, 2-Verbalize Understanding , 3-ImproveStrength/Sukhdeep 1=Demonstrate adherence to instructed precautions during ADL tasks. 2=Patient will verbalize/demonstrate understanding of assistive devices/ modifications for ADL. 3=Patient will improve strength/tolerance for activity to enable patient to perform ADL's. OT Senior Living Goals Master Esthetician Goals Time Frame: Apr 23, 2018 Eating (FIM): 6 Eating (QC): 6 Groomin Oral Hygiene (QC): 6 Bathing(FIM): 5 Shower/Bathe Self (QC): 5 Upper Body Dressing(FIM): 5 Upper Body Dressing (QC): 5 Lower Body Dressing(FIM): 5 Lower Body Dressing (QC): 5 On/Off Footwear (QC): 5 Toileting(FIM): 6 Toileting Hygiene (QC): 6 Transfers (B,C,W/C) (FIM): 6 Toilet/Commode Transfer(FIM): 6 Toilet/Commode Transfer (QC): 6 Shower Transfer(FIM): 5 Additional Goals: 1-Demonstrate ADL Tasks, 2-Verbalize Understanding, 3- ImproveStrength/Sukhdeep 1=Demonstrate adherence to instructed precautions during ADL tasks. 2=Patient will verbalize/demonstrate understanding of assistive devices/ modifications for ADL. 3=Patient will improve strength/tolerance for activity to enable patient to perform ADL's. OT Education/Plan Discharge Recommendations Plan/Recommendations: Continue POC Treatment Plan/Plan of Care Patient would benefit from OT for education, treatment and training to promote independence in ADL's, mobility, safety and/or upper extremity function for ADL' s. Plan of Care: ADL Retraining, Functional Mobility, Group Exercise/Act as Ind, UE Funct Exercise/Act Treatment Duration: Apr 23, 2018 Frequency: At least 5 of 7 days/Wk (IRF) Estimated Hrs Per Day: 1.5 hours per day Agreement: Yes Rehab Potential: Fair Time/GCodes Start Time: 08:00 Stop Time: 09:00 Total Time Billed (hr/min): 60 Billed Treatment Time visit-ADL 3 (40 min) EX 1 (20 min) JIMMY DHILLON Apr 17, 2018 09:09
--- NOTE | 2018-04-17 10:15 | Cardiology Progress Note ---
Cardiology SOAP Progress Note Subjective: No cardiac complaints. Objective: I&O/Vital Signs 04/17/18 04/17/18 06:00 08:42 Temp 97.6 Pulse 56 Resp 18 B/P (MAP) 113/67 (82) Pulse Ox 97 O2 Delivery Room Air Room Air 04/17/18 00:00 Intake Total 900 ml Balance 900 ml Weight (Pounds): 173 Weight (Ounces): 3.2 Weight (Calculated Kilograms): 78.927306 Constitutional: appears stated age, AAO x 3; No apparent distress; well- developed, well-nourished Respiratory: No accessory muscle use, No respiratory distress, No chest tender , No chest expansion is symmetric; chest is bilaterally symmetric; No lungs clear to percussion; lungs clear to auscultation; No crackles, No rhonchi, No rales, No stridor, No wheezing, No pleural rub, No other Cardiovascular: No regular rate-rhythm; irregularly irregular; No extra beats, No parasternal heave is noted, No JVD, No edema, No bradycardia, No tachycardia , No point of maximal impulse, No cardiac thrills are palpable; S1 and S2; No gallop/S3, No gallop/S4, No diastolic murmur; systolic murmur; No friction rub, No click, No other Gastrointestional: No tender, No soft, No round, No distended, No pulsatile mass, No organomegaly, No guarding, No rebound, No tenderness, No hernia, No mass, No audible bowel sounds, No abnormal bowel sounds, No abdominal bruits, No spleenomegaly, No other Extremities: No normal range of motion, No non-tender, No normal inspection, No pedal edema, No calf tenderness, No normal capillary refill, No pelvis stable , No calf tenderness, No inflammation, No pedal edema, No slow capillary refill , No swelling, No other, No abrasion, No clubbing, No cyanosis, No ecchymosis, No laceration, No no lower extremity edema bilateral, No significant edema, No tenderness, No wound Neurologic/Psychiatric: alert, oriented x 3, motor weakness Skin: No normal color, No warm/dry, No cyanosis, No cool, No diaphoresis, No damp, No ecchymosis, No jaundice, No mottled, No pallor, No rash, No tattoos/ piercings, No ulcerations, No rash on exposed areas, No ulcerations on exposed areas, No other Results/Procedures: Labs Laboratory Tests 04/16/18 11:49: Glucometer 260H 04/16/18 16:31: Glucometer 245H 04/16/18 20:11: Glucometer 170H 04/17/18 06:35: Glucometer 126H A/P: Assessment/Dx: Frequent thromboembolic event, Persistent Atrial fibrillation, CAD, CABG, Ischemic cardiomyopathy, Aortic stenosis, Chest pain, Pulmonary hypertension Plan: CAD/CABG: Recent coronary angiography at [facility] showed patent grafts with distal disease not am and able to PCI. Medical therapy was recommended. On Plavix and Eliquis. Recurrent CVA/thromboembolic events: On Eliquis. Persistent atrial fibrillation on amiodarone and Eliquis. Also on diltiazem and beta sammie. Ischemic cardiomyopathy: LVEF 45 percent. On metoprolol. Pulmonary hypertension, continue to follow clinically. Thank you for your consultation. Please call me if you have any questions. Malcolm House MD, FACP, FACC, FSCAI, FHRS, CCDS Interventional Cardiology Cardiac Electrophysiology Vascular Medicine and Endovascular Interventions Boby HOUSE MD Apr 17, 2018 10:15 am
--- NOTE | 2018-04-17 11:02 | Physical Therapy Daily Note ---
PT Daily Note-Current Subjective Pt in bed pre tx, agrees to PT, no pain to report Appearance Pt in bed post tx, w/ tray, call light, phone, all needs met Mental Status Patient Orientation: Person, Place, Time Transfers Functional [place] Measure 0=Not Assessed/NA 4=Minimal Assistance 1=Total Assistance 5=Supervision or Setup 2=Maximal Assistance 6=Modified [place] 3=Moderate Assistance 7=Complete IndependenceIRFPAI Quality Coding Scale 6 Independent with activity with or without an assistive device 5 Patient requires set up or clean up by helper. Patient completes activity by themselves 4 Supervision or touching assist (CGA). [place] provide cues , steadying assist 3 The helper provides less than half the effort to complete the activity 2 The helper provides more than half the effort to complete the activity 1 Dependent. The helper does all the effort to complete an activity 7 Patient refused to complete or attempt activity 9 The patient did not perform the activity before the current illness or injury 88 Not attempted due to Medical conditions or safety concerns Transfers (B, C, W/C) (FIM): 3 Supine to/from Sit: 3 Sit to/from Stand: 4 Bed to/from Chair: 4 supine<->sit modA, needs help w/ legs and sitting up, sit<->stand Johan, pt does better w/ leaning towards R side to push up, but still needs cues occasionally, bed<->chair Johan stand pivot w/ cues for hand placement, pt show improved positioning and stability when turning Weight Bearing Right Lower Extremity: Right Weight Bearing/Tolerated Left Lower Extremity: Left Weight Bearing/Tolerated Gait Training Does the Patient Walk?: Yes Gait (FIM): 2 Distance: 75'x2 Gait Level of Assist: 3 Gait Persons Needed: 1 Gait Assistive Device: Walker Rodolfo Ambulates to gym w/ rest break care home using rodolfo-walker w/ modA, pt shows decreased L knee hyperextension, but leans heavily to L side when doing so, needs cues to push onto walker and stand up straight to improve balance. GT w/ LiteGait 200', pt needs cues to lean to R side and prevent LOB to L side, cues for stepping w/ LLE, pt tends to let it drag behind him, pt very fatigued after 200' Exercises NuStep Minutes: 10 NuStep Workload: 3 Treatments endurance training, gait and mobility training Assessment Current Status: Fair Progress improved sit<->stand transfers w/ decreased cues needed and better positioning, improved/decreased hyperextension in LLE during GT PT Short Term Goals Short Term Goals Time Frame: Apr 02, 2018 Transfers (B,C,W/C) (FIM): 3 Gait (FIM): 1 Gait Distance Comment: 20' Gait Level of Assist: 2 Gait Assistive Device: Cane Large Base Quad Wheelchair Distance: 150'x2 PT Snf Goals Snf Goals PT Auxiliary Equipment Tender Goals Time Frame: Apr 16, 2018 Transfers (B,C,W/C) (FIM): 4 Sit to Lying (QC): 3 Lying-Sitting on Side/Bed(QC): 3 Sit to Stand (QC): 3 Rollin Roll Left to Right (QC): 3 Chair/Equ-dm-Srtkx Xfer(QC): 3 Car Transfer (QC): 3 Gait (FIM): 2 Distance: 50' Walk 10 feet (QC): 3 Walk 10ft-Uneven Surface(QC): 3 Walk 50ft with 2 Turns (QC): 3 Gait Level of Assist: 4 Gait Assistive Device: Cane Large Base Quad Wheelchair (FIM): 6 Distance: 200' Wheel 50 feet with 2 turns (QC: 6 PT Plan Problem List Problem List: Activity Tolerance, Functional Strength, Safety, Balance, Gait, Transfer, Bed Mobility, ROM Treatment/Plan Treatment Plan: Continue Plan of Care Treatment Plan: Bed Mobility, Concurrent Therapy, Education, Functional Activity Sukhdeep, Functional Strength, Group Therapy, Gait, Safety, Therapeutic Exercise, Transfers Treatment Duration: Apr 16, 2018 Frequency: At least 5 of 7 days/Wk (IRF) Estimated Hrs Per Day: 1.5 hours per day Patient and/or Family Agrees t: Yes Safety Risks/Education Patient Education: Gait Training, Transfer Techniques, Correct Positioning, Disease Process, Safety Issues Teaching Recipient: Patient Teaching Methods: Demonstration, Discussion Response to Teaching: Reinforcement Needed Time/GCodes Time In: 1000 Time Out: 1100 Total Billed Treatment Time: 60 Total Billed Treatment 1 visit GT 50' EX 10' CAMMY BLACK PT Apr 17, 2018 11:02
--- NOTE | 2018-04-17 14:08 | Speech Therapy Daily Note ---
Speech Daily Progress Note Subjective Date Seen by Provider: Apr 17, 2018 Time Seen by Provider: 11:30 Pt in bed. Pain Numeric Pain Scale: 0-No Pain Objective Pt completed dysphagia exercises with supervision. Ice chips x 7. Pt demonstrated potential aspiration x1 out of seven trials. Pt appeared very fatigued from OT and PT. Assessment Assessment Current Status: Fair Progress Treatment Plan Continue Plan of Care Communication Comprehension: 6 Expression: 7 Social Cognition Social Interaction: 7 Problem Solvin Memory: 7 Speech Short Term Goals Short Term Goals Short Term Goals Pt will complete Oral Motor Exercises with min assist. Time Frame-ST week Speech Pediatric Acute Care Unit Nurse Goals [facility] Goals Pt will tolerate regular diet with thin liquids with no s/s of aspiration. Time Frame: 3 weeks Speech-Plan Patient/Family Goals Patient/Family Goals: to drink thin liquids. Treatment Plan Speech Therapy Treatment Plan: Continue Plan of Care Pt is very motivated to get better. Treatment Duration: Mar 26, 2018 Frequency: 5 times per week Estimated Hrs Per Day: .5 hour per day Rehab Potential: Fair Pt/Family Agrees to Plan: Yes Safety Risks/Education Teaching Methods: Discussion Response to Teaching: Verbalize Understanding Time Speech Therapy Time In: 11:30 Speech Therapy Time Out: 12:00 Total Billed Time: 30 Billed Treatment Time 1, DYST No MAGALY GARAY Apr 17, 2018 14:08
--- NOTE | 2018-04-17 15:02 | Therapy Group Daily Note ---
Therapy Daily Group Note Patient Education Topic Other List Below (ARU desciption/expecations, wellness:nutrition,exercise) Exercises LE Seated Exercise, UE Exercise Other/Notes Pt maneuvered w/c to therapy gym for OT/PT group. Group consisted of introductions (name, place living, least favorite food), socialization, ARU description/expectations, wellness:nutrition and exercise education and seated UE/LE exercises. Pt introduced self appropriately and actively listened to peers. Pt verbalized understanding of educational topics and gave examples. Pt initiated and contributed to conversation among peers on topic of educational topics. Pt able to complete UE/LE seated exercises. Pt maneuvered w/c back to room then laid down in bed. Call light/phone in reach. All needs met in room. Start Time: 13:00 Stop Time: 14:15 Total Billed Treatment Time: 75 Total Billed Treatment 1-GRP JIMMY DHILLON Apr 17, 2018 15:02
[2018-04-17 18:43] VITALS: BP 123/74
[2018-04-17] MEDS: POLYETHYLENE GLYCOL 17 GM (MIRALAX) PACK PO SCH (21:00)
[2018-04-17] MEDS: MELATONIN 3 MG TABLET PO SCH (21:00)
[2018-04-17] MEDS: ZOLPIDEM 5 MG (AMBIEN) TAB PO PRN (21:35)
[2018-04-17] MEDS: ATORVASTATIN 40 MG (LIPITOR) TABLET PO SCH (21:35)
[2018-04-18 05:55] VITALS: BP 143/75
[2018-04-18] MEDS: inSUlin ASPART (NovoLOG) 1 UNIT/0.01 ML (CHARGE PER UNIT) SC SCH ×4 (06:05→21:00)
--- NOTE | 2018-04-18 07:38 | PM & R (SOAP) Progress Note ---
Subjective This was a face to face visit with the patient. Date Seen by Provider: Apr 18, 2018 Time Seen by Provider: 07:15 Subjective/Events-last exam Patient was seen in his room this AM Patient Min to mod assist for transfers Asks for wound care to see re callous onleft foot which they have treated in the past Explained that due to holiday that they wont be available til 04-21-18Friday to address.Discussed with RN Objective Physician Exam Last Set of Vital Signs Vital Signs Date Time Temp Pulse Resp B/P (MAP) Pulse Ox O2 Delivery O2 Flow Rate FiO2 04/18/18 05:55 98.8 62 18 143/75 (97) 94 Room Air Capillary Refill : I&O Intake and Output 04/18/18 00:00 Intake Total 1280 ml Balance 1280 ml Intake Oral 1280 ml # Voids 5 General: Alert, Cooperative, No Acute Distress HEENT: Atraumatic, PERRLA, EOMI, Mucous Memb Moist/[place], Other (Dysphagia dysarthria ) Neck: Supple, No JVD Lungs: Clear to Auscultation, Other (Decreased breath sounds) Heart: Normal S1, Normal S2, Other (Systolic murmur at the left sternal border) Abdomen: Normal Bowel Sounds, Soft, No Tenderness Extremities: No Clubbing, No Cyanosis, No Edema Skin: No Rashes, No Breakdown Neuro: Other (Can SLR bilayeral with Left arm still weak) Psych/Mental Status: Mental Status NL, Mood NL Results Lab Data Laboratory Tests 04/15/18 11:05: Glucometer 234H 04/15/18 16:59: Glucometer 210H 04/15/18 20:14: Glucometer 218H 04/16/18 06:13: Glucometer 142H 04/16/18 11:49: Glucometer 260H 04/16/18 16:31: Glucometer 245H 04/16/18 20:11: Glucometer 170H 04/17/18 06:35: Glucometer 126H 04/17/18 10:56: Glucometer 235H 04/17/18 15:41: Glucometer 214H 04/17/18 20:20: Glucometer 237H 04/18/18 05:40: Glucometer 51*L 04/18/18 06:07: Glucometer 52*L 04/18/18 06:39: Glucometer 65L Assessment/Plan Assessment and Plan Rt CVa with LHP improving Dysphagia on thickened liquids Chronic afib controlled CAD Insomnia improved with med Constipation treated Callous left foot will ask Wound care to see next week RT Neck pain resolved Mild to moderate CHF compensated Depression improved with med Plan Continue PT/OT/ST Next Team Conference 04-22-18 F/U with Wound care next week Friday re callous Co-Morbidities that are continuing to impact the rehab process: (include details ) EMMY JULIEN MD Apr 18, 2018 07:37
[2018-04-18] MEDS: APIXABAN 5 MG (ELIQUIS) TABLET PO SCH ×2 (09:57→21:21)
[2018-04-18] MEDS: CLOPIDOGREL 75 MG (PLAVIX) TABLET PO SCH (09:57)
[2018-04-18] MEDS: LOSARTAN 25 MG (COZAAR) TAB PO SCH (09:57)
[2018-04-18] MEDS: AMIODARONE 200 MG (CORDARONE) TAB PO SCH ×2 (09:57→21:20)
[2018-04-18] MEDS: SENNA W/DOCUSATE (SENOKOT S) TABLET PO SCH ×2 (09:57→21:00)
[2018-04-18] MEDS: LORATADINE (CLARITIN) 10 MG TAB PO SCH (09:57)
[2018-04-18] MEDS: FAMOTIDINE 20 MG (PEPCID) TABLET PO SCH ×2 (09:57→21:21)
[2018-04-18] MEDS: inSUlin DETERMIR 1 UNIT/0.01 ML (LEVEMIR) CHARGE PER UNIT SQ SCH ×2 (09:57→21:23)
[2018-04-18] MEDS: FLUTICASONE NASAL SPRAY (FLONASE) 16 GM BTL NS SCH (09:58)
--- NOTE | 2018-04-18 11:04 | Physical Therapy Progress Note ---
Therapy Progress Note Pt refused treatment due to fatigue. Pt reports he took a new sleeping pill and is having trouble staying awake. REYES BRICE PT Apr 18, 2018 11:04
[2018-04-18 17:26] VITALS: BP 130/74
[2018-04-18] MEDS: POLYETHYLENE GLYCOL 17 GM (MIRALAX) PACK PO SCH (21:00)
[2018-04-18] MEDS: MELATONIN 3 MG TABLET PO SCH (21:00)
[2018-04-18] MEDS: ATORVASTATIN 40 MG (LIPITOR) TABLET PO SCH (21:21)
[2018-04-18] MEDS: ZOLPIDEM 5 MG (AMBIEN) TAB PO PRN (21:31)
[2018-04-19 05:26] VITALS: BP 155/70
[2018-04-19] MEDS: inSUlin ASPART (NovoLOG) 1 UNIT/0.01 ML (CHARGE PER UNIT) SC SCH ×4 (06:00→21:42)
[2018-04-19] MEDS: SENNA W/DOCUSATE (SENOKOT S) TABLET PO SCH ×2 (09:43→21:00)
[2018-04-19] MEDS: FLUTICASONE NASAL SPRAY (FLONASE) 16 GM BTL NS SCH (09:43)
[2018-04-19] MEDS: LORATADINE (CLARITIN) 10 MG TAB PO SCH (10:01)
[2018-04-19] MEDS: APIXABAN 5 MG (ELIQUIS) TABLET PO SCH ×2 (10:01→21:38)
[2018-04-19] MEDS: AMIODARONE 200 MG (CORDARONE) TAB PO SCH ×2 (10:01→21:37)
[2018-04-19] MEDS: FAMOTIDINE 20 MG (PEPCID) TABLET PO SCH ×2 (10:02→21:38)
[2018-04-19] MEDS: CLOPIDOGREL 75 MG (PLAVIX) TABLET PO SCH (10:02)
[2018-04-19] MEDS: LOSARTAN 25 MG (COZAAR) TAB PO SCH (10:03)
[2018-04-19] MEDS: inSUlin DETERMIR 1 UNIT/0.01 ML (LEVEMIR) CHARGE PER UNIT SQ SCH ×2 (11:00→21:42)
[2018-04-19] MEDS: LACTOBACILLUS Acidoph/Bulgar (LACTINEX/FLORANEX) TAB PO SCH ×2 (11:29→16:39)
[2018-04-19 16:19] VITALS: BP 124/73
[2018-04-19] MEDS: MELATONIN 3 MG TABLET PO SCH (21:00)
[2018-04-19] MEDS: POLYETHYLENE GLYCOL 17 GM (MIRALAX) PACK PO SCH (21:00)
[2018-04-19] MEDS: ATORVASTATIN 40 MG (LIPITOR) TABLET PO SCH (21:37)
[2018-04-19] MEDS: ZOLPIDEM 5 MG (AMBIEN) TAB PO PRN (21:45)
[2018-04-20] MEDS: LOPERAMIDE 2 MG (IMODIUM) CAP PO PRN (03:43)
[2018-04-20 05:17] VITALS: BP 141/71
[2018-04-20] MEDS: inSUlin ASPART (NovoLOG) 1 UNIT/0.01 ML (CHARGE PER UNIT) SC SCH ×4 (06:00→20:13)
[2018-04-20] MEDS: LACTOBACILLUS Acidoph/Bulgar (LACTINEX/FLORANEX) TAB PO SCH ×3 (06:21→16:21)
[2018-04-20] MEDS: inSUlin DETERMIR 1 UNIT/0.01 ML (LEVEMIR) CHARGE PER UNIT SQ SCH ×2 (08:28→20:11)
[2018-04-20] MEDS: LORATADINE (CLARITIN) 10 MG TAB PO SCH (08:28)
[2018-04-20] MEDS: FAMOTIDINE 20 MG (PEPCID) TABLET PO SCH ×2 (08:28→20:11)
[2018-04-20] MEDS: AMIODARONE 200 MG (CORDARONE) TAB PO SCH ×2 (08:28→20:11)
[2018-04-20] MEDS: APIXABAN 5 MG (ELIQUIS) TABLET PO SCH ×2 (08:28→20:11)
[2018-04-20] MEDS: CLOPIDOGREL 75 MG (PLAVIX) TABLET PO SCH (08:28)
[2018-04-20] MEDS: LOSARTAN 25 MG (COZAAR) TAB PO SCH (08:32)
[2018-04-20] MEDS: SENNA W/DOCUSATE (SENOKOT S) TABLET PO SCH ×2 (08:34→20:12)
[2018-04-20] MEDS: FLUTICASONE NASAL SPRAY (FLONASE) 16 GM BTL NS SCH (08:34)
--- NOTE | 2018-04-20 11:39 | Physical Therapy Daily Note ---
PT Daily Note-Current Subjective Patient in bed pre tx, agrees to PT, no complaints of pain. Appearance Patient in wheelchair at bedside post tx, has nurse call, phone, tray, in room. Mental Status Patient Orientation: Person, Place, Situation Transfers Functional [place] Measure 0=Not Assessed/NA 4=Minimal Assistance 1=Total Assistance 5=Supervision or Setup 2=Maximal Assistance 6=Modified [place] 3=Moderate Assistance 7=Complete IndependenceIRFPAI Quality Coding Scale 6 Independent with activity with or without an assistive device 5 Patient requires set up or clean up by helper. Patient completes activity by themselves 4 Supervision or touching assist (CGA). [place] provide cues , steadying assist 3 The helper provides less than half the effort to complete the activity 2 The helper provides more than half the effort to complete the activity 1 Dependent. The helper does all the effort to complete an activity 7 Patient refused to complete or attempt activity 9 The patient did not perform the activity before the current illness or injury 88 Not attempted due to Medical conditions or safety concerns Transfers (B, C, W/C) (FIM): 4 Scootin Rollin Supine to/from Sit: 4 Sit to/from Stand: 4 Bed to/from Chair: 4 Weight Bearing Right Lower Extremity: Right Weight Bearing/Tolerated Left Lower Extremity: Left Weight Bearing/Tolerated Gait Training Gait (FIM): 2 Distance: 120', 60'x2 Gait Level of Assist: 3 Gait Persons Needed: 1 Gait Assistive Device: Walker Rodolfo Needs assist with weight shifting and balance, poor left foot clearance, needs cues for steps length. Exercises sit to stand 3 sets of 5 NuStep Minutes: 15 NuStep Workload: 5 Treatments bed mobility and transfers, ambulation, functional strengthening Assessment Current Status: Fair Progress improving sit to stand PT Short Term Goals Short Term Goals Time Frame: Apr 02, 2018 Transfers (B,C,W/C) (FIM): 3 Gait (FIM): 1 Gait Distance Comment: 20' Gait Level of Assist: 2 Gait Assistive Device: Cane Large Base Quad Wheelchair Distance: 150'x2 PT Chcf Goals Chcf Goals PT Chcf Goals Time Frame: Apr 16, 2018 Transfers (B,C,W/C) (FIM): 4 Sit to Lying (QC): 3 Lying-Sitting on Side/Bed(QC): 3 Sit to Stand (QC): 3 Rollin Roll Left to Right (QC): 3 Chair/Vgc-cm-Imowf Xfer(QC): 3 Car Transfer (QC): 3 Gait (FIM): 2 Distance: 50' Walk 10 feet (QC): 3 Walk 10ft-Uneven Surface(QC): 3 Walk 50ft with 2 Turns (QC): 3 Gait Level of Assist: 4 Gait Assistive Device: Cane Large Base Quad Wheelchair (FIM): 6 Distance: 200' Wheel 50 feet with 2 turns (QC: 6 PT Plan Problem List Problem List: Activity Tolerance, Functional Strength, Safety, Balance, Gait, Transfer, Bed Mobility, ROM Treatment/Plan Treatment Plan: Continue Plan of Care Treatment Plan: Bed Mobility, Concurrent Therapy, Education, Functional Activity Sukhdeep, Functional Strength, Group Therapy, Gait, Safety, Therapeutic Exercise, Transfers Treatment Duration: Apr 16, 2018 Frequency: At least 5 of 7 days/Wk (IRF) Estimated Hrs Per Day: 1.5 hours per day Patient and/or Family Agrees t: Yes Safety Risks/Education Patient Education: Gait Training, Transfer Techniques, Correct Positioning, Safety Issues Teaching Recipient: Patient Teaching Methods: Demonstration, Discussion Response to Teaching: Reinforcement Needed Time/GCodes Time In: 1000 Time Out: 1100 Total Billed Treatment Time: 60 Total Billed Treatment 1 visit GT 30' EX 15' FA 15' CAMMY BLACK PT Apr 20, 2018 11:39
--- NOTE | 2018-04-20 12:54 | Occupational Ther Daily Note ---
OT Current Status-Daily Note Subjective Pt seen in room, up in w/c, agreeable to OT. No pain mentioned. Appearance Alert, cooperative, flat affect Mental Status/Objective Functional [place] Measure 0=Not Assessed/NA 4=Minimal Assistance 1=Total Assistance 5=Supervision or Setup 2=Maximal Assistance 6=Modified [place] 3=Moderate Assistance 7=Complete [place] ADL-Treatment Pt declined bathing but did agree to put on clean shirt. He was able to take dirty shirt off without help and needed just a little help donning clean shirt, with elp to push it over L shoulder and pull it down. Pt recalled mod technique. He propelled w/c to bathroom and brushed his hair mod I, w/c level. Functional [place] Measure 0=Not Assessed/NA 4=Minimal Assistance 1=Total Assistance 5=Supervision or Setup 2=Maximal Assistance 6=Modified [place] 3=Moderate Assistance 7=Complete IndependenceIRFPAI Quality Coding Scale 6 Independent with activity with or without an assistive device 5 Patient requires set up or clean up by helper. Patient completes activity by themselves 4 Supervision or touching assist (CGA). [place] provide cues , steadying assist 3 The helper provides less than half the effort to complete the activity 2 The helper provides more than half the effort to complete the activity 1 Dependent. The helper does all the effort to complete an activity 7 Patient refused to complete or attempt activity 9 The patient did not perform the activity before the current illness or injury 88 Not attempted due to Medical conditions or safety concerns Other Treatment He helped to propel his w/c to the gym where he did 14 minutes bilat UE exercise on arm bike, set at 15W resistance, with L hand oziel wrapped to handle. He peddled backwards and with L hand alone, as well as bilat. His thumb escaped the oziel wrap and rubbed against the arm bike, leaving an area at base of thumbnail. Nursing covered it with bandage. He was able to turn the handle with L arm alone if given a little help to initiate movement. He also worked on grasp release, arm and hand placement, using large cones, then small cones and finally beanbags. He had more difficulty with opening fingers and needed help most of the time for placement of cone or beanbag. He also worked on intentionally pronating L hand during activity. At end of tx, he was able to take L hand off table instead of letting it drop. pt returned to room per w/c, transferred into bed mod assist with two people and left up in bed, 4 rails up, all needs met. Education OT Patient Education: Correct positioning, Modified ADL techniques, Progress toward Goal/Update tx plan, Purpose of tx/functional activities Teaching Recipient: Patient Teaching Methods: Demonstration, Discussion Response to Teaching: Verbalize Understanding, Return Demonstration, Reinforcement Needed OT Short Term Goals Short Term Goals Time Frame: Apr 09, 2018 Eating(FIM): 6 Grooming(FIM): 5 Bathing(FIM): 4 Upper Body Dressing(FIM): 4 Lower Body Dressing(FIM): 3 Toileting(FIM): 4 Transfers (B,C,W/C) (FIM): 3 Toilet/Commode Transfer(FIM): 4 Shower Transfer(FIM): 4 Additional Short Term Goals: 1-Demonstrate ADL Tasks, 2-Verbalize Understanding , 3-ImproveStrength/Sukhdeep 1=Demonstrate adherence to instructed precautions during ADL tasks. 2=Patient will verbalize/demonstrate understanding of assistive devices/ modifications for ADL. 3=Patient will improve strength/tolerance for activity to enable patient to perform ADL's. OT Snf Goals Snf Goals Time Frame: Apr 23, 2018 Eating (FIM): 6 Eating (QC): 6 Groomin Oral Hygiene (QC): 6 Bathing(FIM): 5 Shower/Bathe Self (QC): 5 Upper Body Dressing(FIM): 5 Upper Body Dressing (QC): 5 Lower Body Dressing(FIM): 5 Lower Body Dressing (QC): 5 On/Off Footwear (QC): 5 Toileting(FIM): 6 Toileting Hygiene (QC): 6 Transfers (B,C,W/C) (FIM): 6 Toilet/Commode Transfer(FIM): 6 Toilet/Commode Transfer (QC): 6 Shower Transfer(FIM): 5 Additional Goals: 1-Demonstrate ADL Tasks, 2-Verbalize Understanding, 3- ImproveStrength/Sukhdeep 1=Demonstrate adherence to instructed precautions during ADL tasks. 2=Patient will verbalize/demonstrate understanding of assistive devices/ modifications for ADL. 3=Patient will improve strength/tolerance for activity to enable patient to perform ADL's. OT Education/Plan Discharge Recommendations Plan/Recommendations: Continue POC Treatment Plan/Plan of Care Patient would benefit from OT for education, treatment and training to promote independence in ADL's, mobility, safety and/or upper extremity function for ADL' s. Plan of Care: ADL Retraining, Functional Mobility, Group Exercise/Act as Ind, UE Funct Exercise/Act Treatment Duration: Apr 23, 2018 Frequency: At least 5 of 7 days/Wk (IRF) Estimated Hrs Per Day: 1.5 hours per day Agreement: Yes Rehab Potential: Fair Time/GCodes Start Time: 11:00 Stop Time: 12:00 Total Time Billed (hr/min): 60 Billed Treatment Time visit, 15 minutes ADL, 45 minutes neuromotor HIEN HINTON OT Apr 20, 2018 12:54
--- NOTE | 2018-04-20 14:52 | Therapy Group Daily Note ---
Therapy Daily Group Note Patient Education Topic Home Safety, Fall Prevention, Exercises Exercises LE Seated Exercise, UE Exercise Other/Notes Pt was propelled in [facility] to PT/OT Group this afternoon. Group consisted of Introduction (Name, Where are you from & A Favorite Holiday Memory), Socialization, Home Safety and Fall Prevention Techniques and Equipment as well as Seated Exercise. Pt vocally participated by giving examples of ways patients could fall as well as gave personal example of what patient will change at home to prevent falls and make home safer. Pt also completed Seated Exercises before being propelled back to room to rest at end of Group. Start Time: 13:00 Stop Time: 14:10 Total Billed Treatment Time: 70 Total Billed Treatment 1, GRP (70m) AUREA ESPARZA ABRASIVES SALES REPRESENTATIVE Apr 20, 2018 14:52
[2018-04-20 17:33] VITALS: BP 106/58
[2018-04-20 17:34] VITALS: BP 128/79
[2018-04-20] MEDS: ATORVASTATIN 40 MG (LIPITOR) TABLET PO SCH (20:11)
[2018-04-20] MEDS: ZOLPIDEM 5 MG (AMBIEN) TAB PO PRN (20:11)
[2018-04-20] MEDS: MELATONIN 3 MG TABLET PO SCH (20:12)
[2018-04-20] MEDS: POLYETHYLENE GLYCOL 17 GM (MIRALAX) PACK PO SCH (20:12)
--- NOTE | 2018-04-20 22:19 | PM & R (SOAP) Progress Note ---
Subjective This was a face to face visit with the patient. Date Seen by Provider: Apr 20, 2018 Time Seen by Provider: 21:50 Subjective/Events-last exam Patient was seen in his room this evening Patient Min assist for transfers Accucheks noted Objective Physician Exam Last Set of Vital Signs Vital Signs Date Time Temp Pulse Resp B/P (MAP) Pulse Ox O2 Delivery O2 Flow Rate FiO2 04/20/18 17:34 97.0 64 18 128/79 (95) 90 Room Air Capillary Refill : I&O Intake and Output 04/20/18 00:00 Intake Total 1330 ml Balance 1330 ml Intake Oral 1330 ml # Voids 7 # Bowel Movements 5 General: Alert, Cooperative, No Acute Distress HEENT: Atraumatic, PERRLA, EOMI, Mucous Memb Moist/[place], Other (Dysphagia dysarthria ) Neck: Supple, No JVD Lungs: Clear to Auscultation, Other (Decreased breath sounds) Heart: Normal S1, Normal S2, Other (Systolic murmur at the left sternal border) Abdomen: Normal Bowel Sounds, Soft, No Tenderness Extremities: No Clubbing, No Cyanosis, No Edema Skin: No Rashes, No Breakdown Neuro: Other (Can SLR bilayeral with Left arm still weak) Psych/Mental Status: Mental Status NL, Mood NL Results Lab Data Laboratory Tests 04/18/18 05:40: Glucometer 51*L 04/18/18 06:07: Glucometer 52*L 04/18/18 06:39: Glucometer 65L 04/18/18 11:18: Glucometer 164H 04/18/18 16:45: Glucometer 214H 04/18/18 21:14: Glucometer 189H 04/19/18 05:46: Glucometer 83 04/19/18 10:57: Glucometer 75 04/19/18 16:17: Glucometer 240H 04/19/18 20:12: Glucometer 295H 04/20/18 05:11: Glucometer 129H 04/20/18 11:02: Glucometer 237H 04/20/18 15:18: Glucometer 272H 04/20/18 20:12: Glucometer 185H Assessment/Plan Assessment and Plan RT CVA with Left HP Dysphagia on thickened liquids Chronic A FIB CAD DM controlled Depression improved with meds Contspation improved with meds Mild to moderate Plan Continue PT/OT/ST Next Team Conference 04-22-18 Co-Morbidities that are continuing to impact the rehab process: (include details ) EMMY JULIEN MD Apr 20, 2018 22:19
[2018-04-21] MEDS: inSUlin ASPART (NovoLOG) 1 UNIT/0.01 ML (CHARGE PER UNIT) SC SCH ×4 (05:28→20:40)
[2018-04-21 05:32] VITALS: BP 129/79
[2018-04-21] MEDS: LACTOBACILLUS Acidoph/Bulgar (LACTINEX/FLORANEX) TAB PO SCH ×3 (06:09→16:01)
[2018-04-21] MEDS: FLUTICASONE NASAL SPRAY (FLONASE) 16 GM BTL NS SCH (07:19)
[2018-04-21] MEDS: SENNA W/DOCUSATE (SENOKOT S) TABLET PO SCH ×2 (07:21→20:40)
--- NOTE | 2018-04-21 07:27 | PM & R (SOAP) Progress Note ---
Subjective This was a face to face visit with the patient. Date Seen by Provider: Apr 21, 2018 Time Seen by Provider: 07:05 Subjective/Events-last exam Patient was seen in his room this AM Patient Min assist for transfers Accucheks trending down will f/u with Hospitalist and RN re this CBC noted Review of Systems General: Fatigue Neurological: Weakness Objective Physician Exam Last Set of Vital Signs Vital Signs Date Time Temp Pulse Resp B/P (MAP) Pulse Ox O2 Delivery O2 Flow Rate FiO2 04/21/18 05:32 98.8 61 16 129/79 (96) 97 Room Air Capillary Refill : I&O Intake and Output 04/21/18 00:00 Intake Total 1450 ml Balance 1450 ml Intake Oral 1450 ml # Voids 8 # Bowel Movements 5 General: Alert, Cooperative, No Acute Distress HEENT: Atraumatic, PERRLA, EOMI, Mucous Memb Moist/[place], Other (Dysphagia dysarthria ) Neck: Supple, No JVD Lungs: Clear to Auscultation, Other (Decreased breath sounds) Heart: Normal S1, Normal S2, Other (Systolic murmur at the left sternal border) Abdomen: Normal Bowel Sounds, Soft, No Tenderness Extremities: No Clubbing, No Cyanosis, No Edema Skin: No Rashes, No Breakdown Neuro: Other (Can SLR bilayeral with Left arm still weak) Psych/Mental Status: Mental Status NL, Mood NL Results Lab Data Laboratory Tests 04/18/18 11:18: Glucometer 164H 04/18/18 16:45: Glucometer 214H 04/18/18 21:14: Glucometer 189H 04/19/18 05:46: Glucometer 83 04/19/18 10:57: Glucometer 75 04/19/18 16:17: Glucometer 240H 04/19/18 20:12: Glucometer 295H 04/20/18 05:11: Glucometer 129H 04/20/18 11:02: Glucometer 237H 04/20/18 15:18: Glucometer 272H 04/20/18 20:12: Glucometer 185H 04/21/18 05:26: Glucometer 88 Assessment/Plan Assessment and Plan RT Cva with Left HP Dysphagia ST continues to work with on Modified diet DM Accucheks trending delphine adjust meds Chronic A FIb CAD Depression improved with meds Constipation treated Mild to moderate Plan Continue PT/OT/ST Team Conference tomorrow 04-22-18 F/U with PCP/Hospitalist re Low Accucheks Co-Morbidities that are continuing to impact the rehab process: (include details ) EMMY JULIEN MD Apr 21, 2018 07:27
[2018-04-21] MEDS: CLOPIDOGREL 75 MG (PLAVIX) TABLET PO SCH (07:50)
[2018-04-21] MEDS: inSUlin DETERMIR 1 UNIT/0.01 ML (LEVEMIR) CHARGE PER UNIT SQ SCH ×2 (07:50→20:30)
[2018-04-21] MEDS: FAMOTIDINE 20 MG (PEPCID) TABLET PO SCH ×2 (07:50→20:29)
[2018-04-21] MEDS: LORATADINE (CLARITIN) 10 MG TAB PO SCH (07:50)
[2018-04-21] MEDS: APIXABAN 5 MG (ELIQUIS) TABLET PO SCH ×2 (07:50→20:29)
[2018-04-21] MEDS: LOSARTAN 25 MG (COZAAR) TAB PO SCH (07:50)
[2018-04-21] MEDS: AMIODARONE 200 MG (CORDARONE) TAB PO SCH ×2 (07:50→20:29)
--- NOTE | 2018-04-21 09:41 | Progress Note-Hospitalist ---
Subjective HPI/CC On Admission Date Seen by Provider: Apr 21, 2018 Time Seen by Provider: 09:00 Mr. Guerin is a frail 73-year-old white male who developed abrupt onset of left upper quadrant pain on 18 March. 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 He was discharged with pain medication. On [address] scanning of the chest with contrast for evaluation of subcarinal fullness. It was felt to represent adenopathy a little more prominent than a previous CT scan of the chest in 2012 per radiologist report. No pulmonary abnormalities were reported. He also had significant cholelithiasis without symptoms to suggest cholecystitis. Sometime shortly thereafter he developed left-sided weakness and was transferred to [facility] where he was noted to have a right sided CVA without evidence for significant extracranial vascular disease. He ultimately underwent cardiac catheterization as well which reportedly revealed mild hypokinesis with estimated ejection fraction of 40 percent he did have 3 patent grafts he had some disease in the PDA distal to his RCA graft and also had some disease in the obtuse marginal system that was not bypassed. Medical management was opted for however and the patient did not undergo any endovascular-based therapy. He is transferred back to our rehabilitation unit to continue redilatation for deficits that include left-sided hemiparesis as well as dysarthria and mild dysphasia. He reports that he has been swallowing without coughing on thickened liquids and solids. He denies abdominal pain but does note some sores in his mouth. He states that while he still has significant weakness he has had improvement in movement of the left upper extremity and left lower extremity. The left lower extremity is been affected to a lesser degree than left upper extremity. Past medical history seen for long-standing poorly controlled insulin requiring type II diabetes due to poor compliance with bolus therapy for many years. 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 For this reason he had not been on anticoagulant therapy for known underlying persistent atrial fibrillation. He had no previous known history of thromboembolic disease. He has been placed on eliquis and reports no change in vision and also denies ocular pain. He also was diagnosed with urinary tract infection and discharged on Levaquin to our facility. He also has known significant peripheral neuropathy and pressure ulceration with past osteomyelitis of the great toe requiring partial amputation on the left. In the past she's had multiple foot ulcers but is been some time since he last required treatment for diabetic-related foot ulceration. Subjective/Events-last exam Patient continues to make slow but steady progress in regards to left-sided hemiparesis. He denies depression but it still had difficulty with sleeping at night and reports melatonin was not helping he did better last night after there was a change in medication for insomnia. He still seemed SLEEPY but was getting ready for physical therapy voicing no complaints this morning. Objective Exam Vital Signs Vital Signs Date Time Temp Pulse Resp B/P (MAP) Pulse Ox O2 Delivery O2 Flow Rate FiO2 04/21/18 08:26 Room Air 04/21/18 05:32 98.8 61 16 129/79 (96) 97 Capillary Refill : General Appearance: No Apparent Distress, Chronically ill Respiratory: Chest Non Tender, Lungs Clear, Normal Breath Sounds, No Accessory Muscle Use, No Respiratory Distress Cardiovascular: No Gallop, No JVD, Systolic Murmur (2-3/6 over the aortic outflow tract unchanged), Irregularly Irregular Extremity: Other (Trace pedal in 1-2+ left hand edema no erythema and no tenderness) Neurologic/Psychiatric: Alert, Other (Somewhat flat affect patient repetitively with some improvement in control touch his left finger to his nose. 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 Assessment/Plan Assessment and Plan Assess & Plan/Chief Complaint 1. 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 Considering splenic infarct likely embolic as well we did discuss the risk of anticoagulant therapy and recurrent hemorrhage versus benefits. In my estimation benefits significantly outweigh risk as she would be highly likely to continue to have embolic symptoms. The downside would be retinal hemorrhages would likely lead to blindness in the affected eye. Patient agrees with continuing anticoagulant therapy.No change in vision reported. Barium base swallowing study does reveal evidence for small volume aspiration and vallecular pooling. Patient has no evidence for aspiration pneumonitis at this time continuing to work with speech therapy. 2. Known significant coronary artery disease with mild LV systolic dysfunction continue baby aspirin daily. 3. Type II diabetes mellitus insulin requiring good a.m. control but prelunch breakfast and bedtime sugars still consistently over 200 will increase bolus therapy to 12 units before meals. 4. Thrush resolved will DC nystatin.. 5. Chronic atrial fibrillation currently rate controlled. 6. Reported urinary tract infection with resolution on repeat UA.. 7. Carinal fullness on CT scan possible adenopathy considering the patient's frailty and multiple medical symptoms we will see about obtaining PET scan as an outpatient. 8. Depression significantly improved on Lexapro continue 10 mg daily . Clinical Quality Measures DVT/VTE Risk/Contraindication: Risk Factor Score Per Nursin RFS Level Per Nursing on Admit: 4+=Very High BEVERLY FERNANDES MD Apr 21, 2018 09:41
--- NOTE | 2018-04-21 09:55 | Physical Therapy Daily Note ---
PT Daily Note-Current Subjective Pt in bed pre tx, agrees to PT, no pain to report. Pt states he is still struggling w/ staying asleep at night. visited pt pre tx and discussed possible changes to medication to improve sleep. Appearance Pt in bed post tx w/ phone, call light, tray, all needs met. Mental Status Patient Orientation: Person, Place, Time Transfers Functional [place] Measure 0=Not Assessed/NA 4=Minimal Assistance 1=Total Assistance 5=Supervision or Setup 2=Maximal Assistance 6=Modified [place] 3=Moderate Assistance 7=Complete IndependenceIRFPAI Quality Coding Scale 6 Independent with activity with or without an assistive device 5 Patient requires set up or clean up by helper. Patient completes activity by themselves 4 Supervision or touching assist (CGA). [place] provide cues , steadying assist 3 The helper provides less than half the effort to complete the activity 2 The helper provides more than half the effort to complete the activity 1 Dependent. The helper does all the effort to complete an activity 7 Patient refused to complete or attempt activity 9 The patient did not perform the activity before the current illness or injury 88 Not attempted due to Medical conditions or safety concerns Transfers (B, C, W/C) (FIM): 3 Supine to/from Sit: 3 Sit to/from Stand: 3 Bed to/from Chair: 3 Pt modA w/ all transfers, appears very tired due to lack of sleep. sit<->stand modA w/ cues to lean forward and keep hips from twisting. chair<->bed modA w/ cues for hand placement and foot positioning, supine<->sit modA w/ assistance getting both legs into bed and maintaining sitting balance Weight Bearing Right Lower Extremity: Right Weight Bearing/Tolerated Left Lower Extremity: Left Weight Bearing/Tolerated Gait Training Does the Patient Walk?: Yes Gait (FIM): 1 Distance (FIM): 1=up to 49 ft Distance: 3x20 Gait Level of Assist: 3 Gait Persons Needed: 1 Gait Assistive Device: Parallel Bars Pt ambulates in parallel bars 3x20' going forward 10' and then walking backward 10' w/ modA. Pt needs cues for staying upright and placement of L foot. Pt tends to leave L leg in front of body and only step w/ R leg when walking backwards. Exercises Standing: Sit to Stand, Side steps Standing Reps: 5 Side steps in parallel bars 2x20' w/ modA, pt needs cues to stand upright and not lean too far on the bar Sit to stand x5 w/ modA Treatments gait and mobility training, transfer training Assessment Current Status: Fair Progress Improved balance and stability in parallel bars during gait training. Pt very fatigued today w/ decreased activity tolerance overall. Pt demonstrates flexor tone in LUE, which was not previously noted PT Short Term Goals Short Term Goals Time Frame: Apr 02, 2018 Transfers (B,C,W/C) (FIM): 3 Gait (FIM): 1 Gait Distance Comment: 20' Gait Level of Assist: 2 Gait Assistive Device: Cane Large Base Quad Wheelchair Distance: 150'x2 PT [facility] Goals Accounts Administrator Goals PT Accounts Administrator Goals Time Frame: Apr 16, 2018 Transfers (B,C,W/C) (FIM): 4 Sit to Lying (QC): 3 Lying-Sitting on Side/Bed(QC): 3 Sit to Stand (QC): 3 Rollin Roll Left to Right (QC): 3 Chair/Prb-tc-Idffb Xfer(QC): 3 Car Transfer (QC): 3 Gait (FIM): 2 Distance: 50' Walk 10 feet (QC): 3 Walk 10ft-Uneven Surface(QC): 3 Walk 50ft with 2 Turns (QC): 3 Gait Level of Assist: 4 Gait Assistive Device: Cane Large Base Quad Wheelchair (FIM): 6 Distance: 200' Wheel 50 feet with 2 turns (QC: 6 PT Plan Problem List Problem List: Activity Tolerance, Functional Strength, Safety, Balance, Gait, Transfer, Bed Mobility, ROM Treatment/Plan Treatment Plan: Continue Plan of Care Treatment Plan: Bed Mobility, Concurrent Therapy, Education, Functional Activity Sukhdeep, Functional Strength, Group Therapy, Gait, Safety, Therapeutic Exercise, Transfers Treatment Duration: Apr 16, 2018 Frequency: At least 5 of 7 days/Wk (IRF) Estimated Hrs Per Day: 1.5 hours per day Patient and/or Family Agrees t: Yes Safety Risks/Education Patient Education: Gait Training, Transfer Techniques, Correct Positioning, Safety Issues Teaching Recipient: Patient Teaching Methods: Demonstration, Discussion Response to Teaching: Reinforcement Needed Time/GCodes Time In: 900 Time Out: 1000 Total Billed Treatment Time: 60 Total Billed Treatment 1 visit GT 45' EX 15' CAMMY BLACK PT Apr 21, 2018 09:55
--- NOTE | 2018-04-21 10:59 | Speech Therapy Daily Note ---
Speech Daily Progress Note Subjective Date Seen by Provider: Apr 21, 2018 Time Seen by Provider: 10:00 Pt in bed practicing his dysphagia exercises. Pain Numeric Pain Scale: 0-No Pain Objective Pt completed dysphagia exercises with supervision. Provided ice chips x7 with no s/s of aspiration. Provided a cracker to determine safety for a regular texture. Pt did not exhibit any s/s of aspiration. Upgraded pt's diet to regular and informed nursing (Kenzie) of the change. Pt needs to remain on nectar thick liquids however. Assessment Assessment Current Status: Good Progress Treatment Plan Continue Plan of Care Communication Comprehension: 6 Expression: 7 Social Cognition Social Interaction: 7 Problem Solvin Memory: 7 Speech Short Term Goals Short Term Goals Short Term Goals Pt will complete Oral Motor Exercises with min assist. 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 Time Frame: 3 weeks Speech-Plan Patient/Family Goals Patient/Family Goals: to drink thin liquids Treatment Plan Speech Therapy Treatment Plan: Continue Plan of Care Upgrade diet texture to regular. Treatment Duration: Mar 26, 2018 Frequency: 5 times per week Estimated Hrs Per Day: .5 hour per day Rehab Potential: Fair Pt/Family Agrees to Plan: Yes Safety Risks/Education Teaching Recipient: Patient, Family Teaching Methods: Discussion Response to Teaching: Verbalize Understanding Time Speech Therapy Time In: 10:00 Speech Therapy Time Out: 10:45 Total Billed Time: 45 Billed Treatment Time 1, DYST MAGALY Moseley Apr 21, 2018 10:59
--- NOTE | 2018-04-21 11:58 | Occupational Ther Daily Note ---
OT Current Status-Daily Note Subjective Pt alert, lying in bed. Pt agrees to therapy. No c/o pain. Mental Status/Objective Patient Orientation: Person, Place, Time, Situation Functional [place] Measure 0=Not Assessed/NA 4=Minimal Assistance 1=Total Assistance 5=Supervision or Setup 2=Maximal Assistance 6=Modified [place] 3=Moderate Assistance 7=Complete [place] ADL-Treatment Min A supine to sitting EOB using bed rail and HOB raised. Pt transferred to shower chair with cut out, mod A using victoriano walker. Transferred to shower in shower chair. Completed bathing and drying after set up using hand held shower and shower chair with cut out, close SBA. Max A when standing while pt hikes pants over hips. Pt completed donning/doffing lower body clothing over feet, mod A. Pt requires cues to go through standing sequence prior to reaching for pants to hike over hips. Assist to don shirt due to pt unable to manipulate shirt. Assist to don socks, pt doffed socks by self crossing LE over knee. Pt transferred to bed from w/c with squat pivot with min A. After therapy, pt lying in bed with call light/phone in reach. All needs met in room. Functional [place] Measure 0=Not Assessed/NA 4=Minimal Assistance 1=Total Assistance 5=Supervision or Setup 2=Maximal Assistance 6=Modified [place] 3=Moderate Assistance 7=Complete IndependenceIRFPAI Quality Coding Scale 6 Independent with activity with or without an assistive device 5 Patient requires set up or clean up by helper. Patient completes activity by themselves 4 Supervision or touching assist (CGA). [place] provide cues , steadying assist 3 The helper provides less than half the effort to complete the activity 2 The helper provides more than half the effort to complete the activity 1 Dependent. The helper does all the effort to complete an activity 7 Patient refused to complete or attempt activity 9 The patient did not perform the activity before the current illness or injury 88 Not attempted due to Medical conditions or safety concerns Eating (FIM): 5 (Setup then uses regular utensils to feed self.) Eating (QC): 5 Grooming (FIM): 5 (Pt able to complete grooming by self sitting in w/c. Assist to cleans out razor.) Oral Hygiene (QC): 5 Bathing (FIM): 4 Shower/Bathe Self (QC): 3 Upper Body (FIM): 4 Upper Body Dressing (QC): 3 Lower Body Dressing (FIM): 3 Lower Body Dressing (QC): 2 On/Off Footwear (QC): 3 Transfers (B, C, W/C) (FIM): 3 Shower Transfer(FIM): 1 OT Short Term Goals Short Term Goals Time Frame: Apr 09, 2018 Eating(FIM): 6 Grooming(FIM): 5 Bathing(FIM): 4 Upper Body Dressing(FIM): 4 Lower Body Dressing(FIM): 3 Toileting(FIM): 4 Transfers (B,C,W/C) (FIM): 3 Toilet/Commode Transfer(FIM): 4 Shower Transfer(FIM): 4 Additional Short Term Goals: 1-Demonstrate ADL Tasks, 2-Verbalize Understanding , 3-ImproveStrength/Sukhdeep 1=Demonstrate adherence to instructed precautions during ADL tasks. 2=Patient will verbalize/demonstrate understanding of assistive devices/ modifications for ADL. 3=Patient will improve strength/tolerance for activity to enable patient to perform ADL's. OT Mcc Goals Mcc Goals Time Frame: Apr 23, 2018 Eating (FIM): 6 Eating (QC): 6 Groomin Oral Hygiene (QC): 6 Bathing(FIM): 5 Shower/Bathe Self (QC): 5 Upper Body Dressing(FIM): 5 Upper Body Dressing (QC): 5 Lower Body Dressing(FIM): 5 Lower Body Dressing (QC): 5 On/Off Footwear (QC): 5 Toileting(FIM): 6 Toileting Hygiene (QC): 6 Transfers (B,C,W/C) (FIM): 6 Toilet/Commode Transfer(FIM): 6 Toilet/Commode Transfer (QC): 6 Shower Transfer(FIM): 5 Additional Goals: 1-Demonstrate ADL Tasks, 2-Verbalize Understanding, 3- ImproveStrength/Sukhdeep 1=Demonstrate adherence to instructed precautions during ADL tasks. 2=Patient will verbalize/demonstrate understanding of assistive devices/ modifications for ADL. 3=Patient will improve strength/tolerance for activity to enable patient to perform ADL's. OT Education/Plan Discharge Recommendations Plan/Recommendations: Continue POC Treatment Plan/Plan of Care Patient would benefit from OT for education, treatment and training to promote independence in ADL's, mobility, safety and/or upper extremity function for ADL' s. Plan of Care: ADL Retraining, Functional Mobility, Group Exercise/Act as Ind, UE Funct Exercise/Act Treatment Duration: Apr 23, 2018 Frequency: At least 5 of 7 days/Wk (IRF) Estimated Hrs Per Day: 1.5 hours per day Agreement: Yes Rehab Potential: Fair Time/GCodes Start Time: 10:45 Stop Time: 12:00 Total Time Billed (hr/min): 75 Billed Treatment Time 1 visit-ADL 5 (75 min) JIMMY DHILLON Apr 21, 2018 11:58
--- NOTE | 2018-04-21 14:55 | Physical Therapy Daily Note ---
PT Daily Note-Current Subjective Pt in bed pre tx, agrees to PT, no complaints of pain Appearance Pt in bed post tx, w/ phone, call light, tray, all needs met Mental Status Patient Orientation: Person, Place, Time Transfers Functional [place] Measure 0=Not Assessed/NA 4=Minimal Assistance 1=Total Assistance 5=Supervision or Setup 2=Maximal Assistance 6=Modified [place] 3=Moderate Assistance 7=Complete IndependenceIRFPAI Quality Coding Scale 6 Independent with activity with or without an assistive device 5 Patient requires set up or clean up by helper. Patient completes activity by themselves 4 Supervision or touching assist (CGA). [place] provide cues , steadying assist 3 The helper provides less than half the effort to complete the activity 2 The helper provides more than half the effort to complete the activity 1 Dependent. The helper does all the effort to complete an activity 7 Patient refused to complete or attempt activity 9 The patient did not perform the activity before the current illness or injury 88 Not attempted due to Medical conditions or safety concerns Transfers (B, C, W/C) (FIM): 3 Supine to/from Sit: 3 Sit to/from Stand: 3 Bed to/from Chair: 3 Pt modA w/ all transfers w/ cues for hand placement and safety. Pt needs assistance getting legs into/out of bed w/ supine<->sit transfers, sit<->stand modA w/ cues for leaning forward and pushing w/ RLE Weight Bearing Right Lower Extremity: Right Weight Bearing/Tolerated Left Lower Extremity: Left Weight Bearing/Tolerated Gait Training Does the Patient Walk?: Yes Gait (FIM): 2 Distance: 60'x2 Gait Level of Assist: 3 Gait Persons Needed: 1 Gait Assistive Device: Walker Rodolfo Pt ambulates to gym w/ rest break senior living using rodolfo-walker w/ modA. Pt demonstrates L knee hyperextension and leans heavily towards the left side. Pt needs cues for leaning onto right side into rodolfo-walker to keep balance Exercises NuStep Minutes: 15 NuStep Workload: 3 Treatments gait and mobility training, endurance training Assessment Current Status: Fair Progress improved transfers, mobility, and endurance PT Short Term Goals Short Term Goals Time Frame: Apr 02, 2018 Transfers (B,C,W/C) (FIM): 3 Gait (FIM): 1 Gait Distance Comment: 20' Gait Level of Assist: 2 Gait Assistive Device: Cane Large Base Quad Wheelchair Distance: 150'x2 PT Long-Term Goals Long-Term Goals PT Long-Term Goals Time Frame: Apr 16, 2018 Transfers (B,C,W/C) (FIM): 4 Sit to Lying (QC): 3 Lying-Sitting on Side/Bed(QC): 3 Sit to Stand (QC): 3 Rollin Roll Left to Right (QC): 3 Chair/Pho-gu-Igzqw Xfer(QC): 3 Car Transfer (QC): 3 Gait (FIM): 2 Distance: 50' Walk 10 feet (QC): 3 Walk 10ft-Uneven Surface(QC): 3 Walk 50ft with 2 Turns (QC): 3 Gait Level of Assist: 4 Gait Assistive Device: Cane Large Base Quad Wheelchair (FIM): 6 Distance: 200' Wheel 50 feet with 2 turns (QC: 6 PT Plan Problem List Problem List: Activity Tolerance, Functional Strength, Safety, Balance, Gait, Transfer, Bed Mobility, ROM Treatment/Plan Treatment Plan: Continue Plan of Care Treatment Plan: Bed Mobility, Concurrent Therapy, Education, Functional Activity Sukhdeep, Functional Strength, Group Therapy, Gait, Safety, Therapeutic Exercise, Transfers Treatment Duration: Apr 16, 2018 Frequency: At least 5 of 7 days/Wk (IRF) Estimated Hrs Per Day: 1.5 hours per day Patient and/or Family Agrees t: Yes Safety Risks/Education Patient Education: Gait Training, Transfer Techniques, Steps, Correct Positioning, Safety Issues Teaching Recipient: Patient Teaching Methods: Demonstration, Discussion Response to Teaching: Reinforcement Needed Time/GCodes Time In: 1330 Time Out: 1400 Total Billed Treatment Time: 30 Total Billed Treatment 1 visit GT 15' EX 15' KO MANNING PT Apr 21, 2018 14:55
[2018-04-21 17:36] VITALS: BP 127/68
[2018-04-21] MEDS: ATORVASTATIN 40 MG (LIPITOR) TABLET PO SCH (20:29)
[2018-04-21] MEDS: ZOLPIDEM 5 MG (AMBIEN) TAB PO PRN (20:30)
[2018-04-21] MEDS: POLYETHYLENE GLYCOL 17 GM (MIRALAX) PACK PO SCH (20:40)
[2018-04-21] MEDS: MELATONIN 3 MG TABLET PO SCH (20:40)
[2018-04-21] MEDS ORDERED: inSUlin DETERMIR 1 UNIT/0.01 ML (LEVEMIR) CHARGE PER UNIT SQ SCH (21:00)
[2018-04-22 05:03] VITALS: BP 132/69
[2018-04-22] MEDS: inSUlin ASPART (NovoLOG) 1 UNIT/0.01 ML (CHARGE PER UNIT) SC SCH ×4 (05:38→20:52)
[2018-04-22] MEDS: LACTOBACILLUS Acidoph/Bulgar (LACTINEX/FLORANEX) TAB PO SCH ×3 (05:38→16:48)
--- NOTE | 2018-04-22 07:54 | PM & R (SOAP) Progress Note ---
Subjective This was a face to face visit with the patient. Date Seen by Provider: Apr 22, 2018 Time Seen by Provider: 07:30 Subjective/Events-last exam Patient was seen in his room this AM patient Mod assist for transfers Appreciate Dr To notes and orders BG trending down Insulin adjusted Objective Physician Exam Last Set of Vital Signs Vital Signs Date Time Temp Pulse Resp B/P (MAP) Pulse Ox O2 Delivery O2 Flow Rate FiO2 04/22/18 05:03 99.4 66 18 132/69 (90) 96 Room Air Capillary Refill : I&O Intake and Output 04/22/18 00:00 Intake Total 550 ml Balance 550 ml Intake Oral 550 ml # Voids 5 General: Alert, Cooperative, No Acute Distress HEENT: Atraumatic, PERRLA, EOMI, Mucous Memb Moist/[place], Other (Dysphagia dysarthria ) Neck: Supple, No JVD Lungs: Clear to Auscultation, Other (Decreased breath sounds) Heart: Normal S1, Normal S2, Other (Systolic murmur at the left sternal border) Abdomen: Normal Bowel Sounds, Soft, No Tenderness Extremities: No Clubbing, No Cyanosis, No Edema Skin: No Rashes, No Breakdown Neuro: Other (Can SLR bilayeral with Left arm still weak) Psych/Mental Status: Mental Status NL, Mood NL Results Lab Data Laboratory Tests 04/19/18 10:57: Glucometer 75 04/19/18 16:17: Glucometer 240H 04/19/18 20:12: Glucometer 295H 04/20/18 05:11: Glucometer 129H 04/20/18 11:02: Glucometer 237H 04/20/18 15:18: Glucometer 272H 04/20/18 20:12: Glucometer 185H 04/21/18 05:26: Glucometer 88 04/21/18 10:47: Glucometer 123H 04/21/18 15:53: Glucometer 122H 04/21/18 20:14: Glucometer 143H 04/22/18 01:37: Glucometer 127H 04/22/18 05:37: Glucometer 94 Assessment/Plan Assessment and Plan RT cva with left HP Dysphagia ST continues to address DM meds being adjusted as per above Chronic A FIB CAD Depression improved with med Constipation treated Mild to moderate Plan Continue PT/OT/Sty F/U with Cardiology and DR Burleson Team Conference to be held later today -see report for full functional update and POC and ELOS Co-Morbidities that are continuing to impact the rehab process: (include details ) EMMY JULIEN MD Apr 22, 2018 07:54
[2018-04-22] MEDS: CLOPIDOGREL 75 MG (PLAVIX) TABLET PO SCH (08:23)
[2018-04-22] MEDS: LORATADINE (CLARITIN) 10 MG TAB PO SCH (08:23)
[2018-04-22] MEDS: inSUlin DETERMIR 1 UNIT/0.01 ML (LEVEMIR) CHARGE PER UNIT SQ SCH ×2 (08:23→20:31)
[2018-04-22] MEDS: FAMOTIDINE 20 MG (PEPCID) TABLET PO SCH ×2 (08:24→20:31)
[2018-04-22] MEDS: APIXABAN 5 MG (ELIQUIS) TABLET PO SCH ×2 (08:24→20:31)
[2018-04-22] MEDS: AMIODARONE 200 MG (CORDARONE) TAB PO SCH ×2 (08:24→20:31)
[2018-04-22] MEDS: FLUTICASONE NASAL SPRAY (FLONASE) 16 GM BTL NS SCH (08:30)
[2018-04-22] MEDS: SENNA W/DOCUSATE (SENOKOT S) TABLET PO SCH ×2 (08:30→20:52)
[2018-04-22] MEDS: LOSARTAN 25 MG (COZAAR) TAB PO SCH (08:36)
--- NOTE | 2018-04-22 10:03 | Physical Therapy Daily Note ---
PT Daily Note-Current Subjective Pt in w/c pre tx, agrees to PT, no pain to report, pt states he did not get much sleep again last night despite change in medication Appearance Pt in recliner post tx w/ phone, call light, and tray, all needs met Mental Status Patient Orientation: Person, Place, Time Transfers Functional [place] Measure 0=Not Assessed/NA 4=Minimal Assistance 1=Total Assistance 5=Supervision or Setup 2=Maximal Assistance 6=Modified [place] 3=Moderate Assistance 7=Complete IndependenceIRFPAI Quality Coding Scale 6 Independent with activity with or without an assistive device 5 Patient requires set up or clean up by helper. Patient completes activity by themselves 4 Supervision or touching assist (CGA). [place] provide cues , steadying assist 3 The helper provides less than half the effort to complete the activity 2 The helper provides more than half the effort to complete the activity 1 Dependent. The helper does all the effort to complete an activity 7 Patient refused to complete or attempt activity 9 The patient did not perform the activity before the current illness or injury 88 Not attempted due to Medical conditions or safety concerns Transfers (B, C, W/C) (FIM): 3 Sit to/from Stand: 3 Bed to/from Chair: 3 Pt modA for transfers, pt needs cues for foot placement during sit to stand and tends to flop into chair during stand to sit. Cues needed to lean forward and stand all the way up during bed<->chair. Weight Bearing Right Lower Extremity: Right Weight Bearing/Tolerated Left Lower Extremity: Left Weight Bearing/Tolerated Gait Training Does the Patient Walk?: Yes Gait (FIM): 2 Distance (FIM): 3=251-44 ft Distance: 40'x2 Gait Level of Assist: 3 Gait Persons Needed: 1 Gait Assistive Device: Walker Rodolfo Pt ambulates around gym w/ rodolfo-walker modA w/ cues to stand up tall and lean on R side/walker during advance of LLE. Pt leans forward and to L side and needs assistance from PT to maintain balance. Pt occasionally shows L knee hyperextension, but shows improvement today with keeping his knee flexed and engaging quadriceps Exercises Seated Therapy Exercises: Long arc quads, Hip flexion Seated Reps: 20 transfer training 8 reps using stand pivot transfer, pt is modA with lots of cues for pushing off and leaning to R side. Pt struggles to stand up all the way before turning and begins to lose his balance. Pt fatigues very easily, likely attributed to lack of sleep. Treatments gait, transfers, AROM Assessment Current Status: Poor Progress No change in mobility PT Short Term Goals Short Term Goals Time Frame: Apr 02, 2018 Transfers (B,C,W/C) (FIM): 3 Gait (FIM): 1 Gait Distance Comment: 20' Gait Level of Assist: 2 Gait Assistive Device: Cane Large Base Quad Wheelchair Distance: 150'x2 PT [facility] Goals [facility] Goals PT Can Conveyor Feeder Goals Time Frame: Apr 16, 2018 Transfers (B,C,W/C) (FIM): 4 Sit to Lying (QC): 3 Lying-Sitting on Side/Bed(QC): 3 Sit to Stand (QC): 3 Rollin Roll Left to Right (QC): 3 Chair/Ljf-ib-Rpwkb Xfer(QC): 3 Car Transfer (QC): 3 Gait (FIM): 2 Distance: 50' Walk 10 feet (QC): 3 Walk 10ft-Uneven Surface(QC): 3 Walk 50ft with 2 Turns (QC): 3 Gait Level of Assist: 4 Gait Assistive Device: Cane Large Base Quad Wheelchair (FIM): 6 Distance: 200' Wheel 50 feet with 2 turns (QC: 6 PT Plan Problem List Problem List: Activity Tolerance, Functional Strength, Safety, Balance, Gait, Transfer, Bed Mobility, ROM Treatment/Plan Treatment Plan: Continue Plan of Care Treatment Plan: Bed Mobility, Concurrent Therapy, Education, Functional Activity Sukhdeep, Functional Strength, Group Therapy, Gait, Safety, Therapeutic Exercise, Transfers Treatment Duration: Apr 16, 2018 Frequency: At least 5 of 7 days/Wk (IRF) Estimated Hrs Per Day: 1.5 hours per day Patient and/or Family Agrees t: Yes Safety Risks/Education Patient Education: Gait Training, Transfer Techniques, Correct Positioning, Safety Issues Teaching Recipient: Patient Teaching Methods: Demonstration, Discussion Response to Teaching: Reinforcement Needed Time/GCodes Time In: 0900 Time Out: 1000 Total Billed Treatment Time: 60 Total Billed Treatment 1 visit EX 10' GT 20' FA 30' CAMMY BLACK PT Apr 22, 2018 10:03
--- NOTE | 2018-04-22 11:10 | Speech Therapy Daily Note ---
Speech Daily Progress Note Subjective Date Seen by Provider: Apr 22, 2018 Time Seen by Provider: 10:15 Pt practicing exercises upon arrival. Pain Numeric Pain Scale: 0-No Pain Objective Pt completed dysphagia exercises with supervision. Pt provided ice chips x7 with no s/s of aspiration. Assessment Assessment Current Status: Good Progress Treatment Plan Continue Plan of Care Communication Comprehension: 6 Expression: 7 Social Cognition Social Interaction: 7 Problem Solvin Memory: 7 Speech Short Term Goals Short Term Goals Short Term Goals Pt will complete Oral Motor Exercises with min assist. 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 Time Frame: 3 weeks Speech-Plan Patient/Family Goals Patient/Family Goals: drink thin liquids Treatment Plan Speech Therapy Treatment Plan: Continue Plan of Care Pt continues to be motivated to improve. Treatment Duration: Mar 26, 2018 Frequency: 5 times per week Estimated Hrs Per Day: .5 hour per day Rehab Potential: Fair Pt/Family Agrees to Plan: Yes Safety Risks/Education Teaching Recipient: Patient Teaching Methods: Discussion Response to Teaching: Verbalize Understanding Time Speech Therapy Time In: 10:15 Speech Therapy Time Out: 10:45 Total Billed Time: 30 Billed Treatment Time 1, DYST No MAGALY GARAY Apr 22, 2018 11:10
--- NOTE | 2018-04-22 12:05 | Occupational Ther Daily Note ---
OT Current Status-Daily Note Subjective Pt alert, sitting in recliner. Pt and states that pt is fatigued from not sleeping. Pt agrees to therapy. No c/o pain. Mental Status/Objective Patient Orientation: Person, Place, Time, Situation Functional [place] Measure 0=Not Assessed/NA 4=Minimal Assistance 1=Total Assistance 5=Supervision or Setup 2=Maximal Assistance 6=Modified [place] 3=Moderate Assistance 7=Complete [place] ADL-Treatment Pt declines bathing and dressing. Functional [place] Measure 0=Not Assessed/NA 4=Minimal Assistance 1=Total Assistance 5=Supervision or Setup 2=Maximal Assistance 6=Modified [place] 3=Moderate Assistance 7=Complete IndependenceIRFPAI Quality Coding Scale 6 Independent with activity with or without an assistive device 5 Patient requires set up or clean up by helper. Patient completes activity by themselves 4 Supervision or touching assist (CGA). [place] provide cues , steadying assist 3 The helper provides less than half the effort to complete the activity 2 The helper provides more than half the effort to complete the activity 1 Dependent. The helper does all the effort to complete an activity 7 Patient refused to complete or attempt activity 9 The patient did not perform the activity before the current illness or injury 88 Not attempted due to Medical conditions or safety concerns Grooming (FIM): 6 (Pt completes grooming at sink in w/c.) Oral Hygiene (QC): 6 Other Treatment Pt has difficulties with sequencing during motor planning tasks. Has been inconsistent with movement of L UE due to decreased motor planning and increased fatigue. Pt requires verbal/physical cues and repetition with active movement during functional tasks to sequence motor planning. Pt completed ROM arc 2x's with R UE, 2# wt attached to wrist. Placing large rings in designated area with physical cues for guidance, more prompts initially then decreased. Arm bike completed with L UE wrapped onto handle for 3 min then B UE's used for 5 min at 15 dowell resistance. Pt required verbal/physical cues initially then pt was able to complete rotations by self with L UE. Self ROM completed with T- dowel jesica, L hand wrapped onto "T", 2 sets 10 reps. Pt then maneuvered w/c back to room and transferred with mod A to bed. Pt immediately closed eyes as he laid down. Edema glove placed on L hand. After therapy, pt lying in bed with call light/phone in reach. All needs met in room. OT Short Term Goals Short Term Goals Time Frame: Apr 09, 2018 Eating(FIM): 6 Grooming(FIM): 5 Bathing(FIM): 4 Upper Body Dressing(FIM): 4 Lower Body Dressing(FIM): 3 Toileting(FIM): 4 Transfers (B,C,W/C) (FIM): 3 Toilet/Commode Transfer(FIM): 4 Shower Transfer(FIM): 4 Additional Short Term Goals: 1-Demonstrate ADL Tasks, 2-Verbalize Understanding , 3-ImproveStrength/Sukhdeep 1=Demonstrate adherence to instructed precautions during ADL tasks. 2=Patient will verbalize/demonstrate understanding of assistive devices/ modifications for ADL. 3=Patient will improve strength/tolerance for activity to enable patient to perform ADL's. OT Advertising Director Goals Correction Goals Time Frame: Apr 23, 2018 Eating (FIM): 6 Eating (QC): 6 Groomin Oral Hygiene (QC): 6 Bathing(FIM): 5 Shower/Bathe Self (QC): 5 Upper Body Dressing(FIM): 5 Upper Body Dressing (QC): 5 Lower Body Dressing(FIM): 5 Lower Body Dressing (QC): 5 On/Off Footwear (QC): 5 Toileting(FIM): 6 Toileting Hygiene (QC): 6 Transfers (B,C,W/C) (FIM): 6 Toilet/Commode Transfer(FIM): 6 Toilet/Commode Transfer (QC): 6 Shower Transfer(FIM): 5 Additional Goals: 1-Demonstrate ADL Tasks, 2-Verbalize Understanding, 3- ImproveStrength/Sukhdeep 1=Demonstrate adherence to instructed precautions during ADL tasks. 2=Patient will verbalize/demonstrate understanding of assistive devices/ modifications for ADL. 3=Patient will improve strength/tolerance for activity to enable patient to perform ADL's. OT Education/Plan Discharge Recommendations Plan/Recommendations: Continue POC Treatment Plan/Plan of Care Patient would benefit from OT for education, treatment and training to promote independence in ADL's, mobility, safety and/or upper extremity function for ADL' s. Plan of Care: ADL Retraining, Functional Mobility, Group Exercise/Act as Ind, UE Funct Exercise/Act Treatment Duration: Apr 23, 2018 Frequency: At least 5 of 7 days/Wk (IRF) Estimated Hrs Per Day: 1.5 hours per day Agreement: Yes Rehab Potential: Fair Time/GCodes Start Time: 10:45 Stop Time: 12:00 Total Time Billed (hr/min): 75 Billed Treatment Time 1 visit-ADL 2 (30 min) NM 3 (45 min) JIMMY DHILLON Apr 22, 2018 12:05
--- NOTE | 2018-04-22 14:41 | Physical Therapy Daily Note ---
PT Daily Note-Current Subjective Pt laying Supine in bed upon arrival. Pt agrees to Supine Ex in bed due to fatigue. Pain Location: No Pain Reported Mental Status Patient Orientation: Person, Place, Situation Transfers Functional [place] Measure 0=Not Assessed/NA 4=Minimal Assistance 1=Total Assistance 5=Supervision or Setup 2=Maximal Assistance 6=Modified [place] 3=Moderate Assistance 7=Complete IndependenceIRFPAI Quality Coding Scale 6 Independent with activity with or without an assistive device 5 Patient requires set up or clean up by helper. Patient completes activity by themselves 4 Supervision or touching assist (CGA). [place] provide cues , steadying assist 3 The helper provides less than half the effort to complete the activity 2 The helper provides more than half the effort to complete the activity 1 Dependent. The helper does all the effort to complete an activity 7 Patient refused to complete or attempt activity 9 The patient did not perform the activity before the current illness or injury 88 Not attempted due to Medical conditions or safety concerns Scootin Weight Bearing Right Lower Extremity: Right Weight Bearing/Tolerated Left Lower Extremity: Left Weight Bearing/Tolerated Exercises Supine Ex: Ankle pumps, Quad Set, Heel Slides, Straight leg raise, Hip abd/add Supine Reps: 20 Treatments Pt complete Supine Ex in bed with a couple of rest breaks. SOFTWARE PROGRAM MANAGER and Nurse assist pt with scoot higher in bed. Pt rest in bed at end of tx with Nurse present and all needs met. Assessment Current Status: Good Progress Pt fatigues and was already tired today since he did not sleep well. PT Short Term Goals Short Term Goals Time Frame: Apr 02, 2018 Transfers (B,C,W/C) (FIM): 3 Gait (FIM): 1 Gait Distance Comment: 20' Gait Level of Assist: 2 Gait Assistive Device: Cane Large Base Quad Wheelchair Distance: 150'x2 PT Detention Goals Detention Goals PT Detention Goals Time Frame: Apr 16, 2018 Transfers (B,C,W/C) (FIM): 4 Sit to Lying (QC): 3 Lying-Sitting on Side/Bed(QC): 3 Sit to Stand (QC): 3 Rollin Roll Left to Right (QC): 3 Chair/Heu-pe-Iiyuq Xfer(QC): 3 Car Transfer (QC): 3 Gait (FIM): 2 Distance: 50' Walk 10 feet (QC): 3 Walk 10ft-Uneven Surface(QC): 3 Walk 50ft with 2 Turns (QC): 3 Gait Level of Assist: 4 Gait Assistive Device: Cane Large Base Quad Wheelchair (FIM): 6 Distance: 200' Wheel 50 feet with 2 turns (QC: 6 PT Plan Problem List Problem List: Activity Tolerance, Functional Strength, Safety, Balance, Gait, Transfer, Bed Mobility Treatment/Plan Treatment Plan: Continue Plan of Care Treatment Plan: Bed Mobility, Concurrent Therapy, Education, Functional Activity Sukhdeep, Functional Strength, Group Therapy, Gait, Safety, Therapeutic Exercise, Transfers Treatment Duration: Apr 16, 2018 Frequency: At least 5 of 7 days/Wk (IRF) Estimated Hrs Per Day: 1.5 hours per day Patient and/or Family Agrees t: Yes Safety Risks/Education Patient Education: Transfer Techniques, Correct Positioning, Safety Issues Teaching Recipient: Patient Teaching Methods: Discussion Response to Teaching: Verbalize Understanding Time/GCodes Time In: 1330 Time Out: 1400 Total Billed Treatment Time: 30 Total Billed Treatment 1, EX x2 (30m) G Codes Necessary: AUREA Stevens PTA Apr 22, 2018 14:41
--- NOTE | 2018-04-22 15:42 | Speech Therapy Rehab Re-Cert ---
Speech Re-Certification Form Speech Therapy Treatment Plan: Continue Plan of Care (This is effective 2017) Visits Per Week: 5 Minutes/Day (M-F): 30 Rehab Potential: Good Barriers to Learning: None Patient and/or Family Agrees t: Yes Speech Short Term Goals Short Term Goals Short Term Goals This is effective 04/16/2018: 1. Pt will complete Oral Motor Exercises independently. 2. Pt will demonstrate tolerance for ice chips with no more that 2 episodes of possible aspiration. Time Frame-ST weeks Speech Media Marketing Manager Goals Media Marketing Manager Goals This is effective 04/16/2018: 1. Pt will tolerate regular diet with thin liquids with no s/s of aspiration. Time Frame: 2 weeks MAGALY GARAY Apr 22, 2018 15:42
--- NOTE | 2018-04-22 15:44 | Physical Therapy Rehab Re-Cert ---
PT Re-Certification Form Physical Therapy Treatment Plan: Continue Plan of Care Bed Mobility, Concurrent Therapy, Education, Functional Activity Sukhdeep, Functional Strength, Group Therapy, Gait, Safety, Therapeutic Exercise, Transfers Treatment Duration: 2 weeks Frequency: At least 5 of 7 days/Wk (IRF) Estimated Hrs Per Day: 1.5 hours per day Patient and/or Family Agrees t: Yes Rehab Potential: Poor Continue PT and current termite inspector goals. Patient will continue current physical therapy treatments to maximize functional mobility and potential for independence at home. PT Short Term Goals Short Term Goals Time Frame: Apr 02, 2018 Transfers (B,C,W/C) (FIM): 3 Gait (FIM): 1 Gait Distance Comment: 20' Gait Level of Assist: 2 Gait Assistive Device: Cane Large Base Quad Wheelchair Distance: 150'x2 PT Security System Installer Goals Security System Installer Goals PT Security System Installer Goals Time Frame: Apr 16, 2018 Transfers (B,C,W/C) (FIM): 4 Gait (FIM): 2 Distance: 50' Gait Level of Assist: 4 Gait Assistive Device: Cane Large Base Quad Wheelchair (FIM): 6 Distance: 200' CAMMY BLACK PT Apr 22, 2018 15:44
[2018-04-22 17:08] VITALS: BP 145/71
[2018-04-22] MEDS: ATORVASTATIN 40 MG (LIPITOR) TABLET PO SCH (20:30)
[2018-04-22] MEDS: ZOLPIDEM 5 MG (AMBIEN) TAB PO PRN (20:31)
[2018-04-22] MEDS: traZODone 50 MG (DESYREL) TAB PO SCH (20:31)
[2018-04-22] MEDS: POLYETHYLENE GLYCOL 17 GM (MIRALAX) PACK PO SCH (20:52)
[2018-04-23] MEDS: LACTOBACILLUS Acidoph/Bulgar (LACTINEX/FLORANEX) TAB PO SCH ×3 (06:30→17:13)
[2018-04-23] MEDS: inSUlin ASPART (NovoLOG) 1 UNIT/0.01 ML (CHARGE PER UNIT) SC SCH ×4 (06:30→21:03)
[2018-04-23 06:39] VITALS: BP 128/74
--- NOTE | 2018-04-23 08:12 | PM & R (SOAP) Progress Note ---
Subjective This was a face to face visit with the patient. Date Seen by Provider: Apr 23, 2018 Time Seen by Provider: 07:40 Subjective/Events-last exam Patient was seen in his room this AM Patient5 Mod assist for UB dressing and Max assist for Lower body dressing Discussed case with Evening RN Patient slept better with Trazodone added for insomnia Melatonin d/cd. Objective Physician Exam Last Set of Vital Signs Vital Signs Date Time Temp Pulse Resp B/P (MAP) Pulse Ox O2 Delivery O2 Flow Rate FiO2 04/23/18 06:39 98.8 71 18 128/74 (92) 96 Room Air Capillary Refill : I&O Intake and Output 04/23/18 00:00 Intake Total 1070 ml Balance 1070 ml Intake Oral 1070 ml # Voids 6 # Bowel Movements 3 General: Alert, Cooperative, No Acute Distress HEENT: Atraumatic, PERRLA, EOMI, Mucous Memb Moist/[place], Other (Dysphagia dysarthria ) Neck: Supple, No JVD Lungs: Clear to Auscultation, Other (Decreased breath sounds) Heart: Normal S1, Normal S2, Other (Systolic murmur at the left sternal border) Abdomen: Normal Bowel Sounds, Soft, No Tenderness Extremities: No Clubbing, No Cyanosis, No Edema Skin: No Rashes, No Breakdown Neuro: Other (Can SLR bilayeral with Left arm still weak) Psych/Mental Status: Mental Status NL, Mood NL Results Lab Data Laboratory Tests 04/20/18 11:02: Glucometer 237H 04/20/18 15:18: Glucometer 272H 04/20/18 20:12: Glucometer 185H 04/21/18 05:26: Glucometer 88 04/21/18 10:47: Glucometer 123H 04/21/18 15:53: Glucometer 122H 04/21/18 20:14: Glucometer 143H 04/22/18 01:37: Glucometer 127H 04/22/18 05:37: Glucometer 94 04/22/18 11:51: Glucometer 228H 04/22/18 16:26: Glucometer 127H 04/22/18 20:19: Glucometer 149H 04/23/18 06:27: Glucometer 105 Assessment/Plan Assessment and Plan RT Cva with Left HP Improving in Leg for strength Dysphagia on Thickened liquids DM Meds adjusted Chronic A FIB CAD Depression improved with med Constipation improved Mild to Moderate Insomnia improving Plan Continue PT/OT/ST Team Conference held yesterday-see report for full functional update and POC Discharge set tentatively for next week Friday04-27-18 to a local SNU for ongoing care and therapies F/U with DR castillo and Hospitalist service PRN Co-Morbidities that are continuing to impact the rehab process: (include details ) EMMY JULIEN MD Apr 23, 2018 08:12
[2018-04-23] MEDS: SENNA W/DOCUSATE (SENOKOT S) TABLET PO SCH ×2 (08:30→21:17)
[2018-04-23] MEDS: FLUTICASONE NASAL SPRAY (FLONASE) 16 GM BTL NS SCH (08:30)
[2018-04-23] MEDS: LORATADINE (CLARITIN) 10 MG TAB PO SCH (08:38)
[2018-04-23] MEDS: CLOPIDOGREL 75 MG (PLAVIX) TABLET PO SCH (08:38)
[2018-04-23] MEDS: LOSARTAN 25 MG (COZAAR) TAB PO SCH (08:38)
[2018-04-23] MEDS: APIXABAN 5 MG (ELIQUIS) TABLET PO SCH ×2 (08:38→21:17)
[2018-04-23] MEDS: FAMOTIDINE 20 MG (PEPCID) TABLET PO SCH ×2 (08:38→21:17)
[2018-04-23] MEDS: AMIODARONE 200 MG (CORDARONE) TAB PO SCH ×2 (08:38→21:17)
[2018-04-23] MEDS: inSUlin DETERMIR 1 UNIT/0.01 ML (LEVEMIR) CHARGE PER UNIT SQ SCH ×2 (08:45→21:19)
--- NOTE | 2018-04-23 08:59 | Speech Therapy Daily Note ---
Speech Daily Progress Note Subjective Date Seen by Provider: Apr 23, 2018 Time Seen by Provider: 10:00 pt in bed. Pain Numeric Pain Scale: 0-No Pain Objective Completed dysphagia exercises with min assist. Provided ice chips x6 with no s/s of aspiration. Assessment Assessment Current Status: Fair Progress Treatment Plan Continue Plan of Care Communication Comprehension: 6 Expression: 7 Social Cognition Social Interaction: 7 Problem Solvin Memory: 7 Speech Short Term Goals Short Term Goals Short Term Goals This is effective 04/16/2018: 1. Pt will complete Oral Motor Exercises independently. 2. Pt will demonstrate tolerance for ice chips with no more that 2 episodes of possible aspiration. Time Frame-ST weeks Speech Assisted Goals Assisted Goals This is effective 04/16/2018: 1. Pt will tolerate regular diet with thin liquids with no s/s of aspiration. Time Frame: 2 weeks Speech-Plan Patient/Family Goals Patient/Family Goals: drink thin liquids Treatment Plan Speech Therapy Treatment Plan: Continue Plan of Care Pt is to be discharged from the facility on Friday to SNF. Treatment Duration: Mar 26, 2018 Frequency: 5 times per week Estimated Hrs Per Day: .5 hour per day Rehab Potential: Good Pt/Family Agrees to Plan: Yes Safety Risks/Education Teaching Recipient: Patient, Family Teaching Methods: Discussion Response to Teaching: Verbalize Understanding Time Speech Therapy Time In: 10:00 Speech Therapy Time Out: 10:30 Total Billed Time: 30 Billed Treatment Time 1, PRINCE MAGALY Moseley Apr 23, 2018 08:59
--- NOTE | 2018-04-23 09:55 | Occ Therapy Rehab Re-Cert ---
OT Re-Certification Form Plan of Care: ADL Retraining, Caregiver Training, Functional Mobility, Group Exercise/Act as Ind, UE Funct Exercise/Act Pt. has been seen by occupational therapy to increase overall awareness, safety , and independence with ADL goals. Pt. has made progress and continues to do so. Pt. is able to complete ADLs with mod/max assist. Pt. was dependent with tasks upon admission. All goals are the same, as is the POC. Treatment Duration: 05/07/18 Frequency: At least 5 of 7 days/Wk (IRF) Estimated Hrs Per Day: 1.5 hours per day Agreement: Yes Rehab Potential: Fair OT Short Term Goals Short Term Goals Time Frame: Apr 09, 2018 Eating(FIM): 6 Grooming(FIM): 5 Bathing(FIM): 4 Upper Body Dressing(FIM): 4 Lower Body Dressing(FIM): 3 Toileting(FIM): 4 Transfers (B,C,W/C) (FIM): 3 Toilet/Commode Transfer(FIM): 4 Shower Transfer(FIM): 4 Additional Short Term Goals: 1-Demonstrate ADL Tasks, 2-Verbalize Understanding , 3-ImproveStrength/Sukhdeep 1=Demonstrate adherence to instructed precautions during ADL tasks. 2=Patient will verbalize/demonstrate understanding of assistive devices/ modifications for ADL. 3=Patient will improve strength/tolerance for activity to enable patient to perform ADL's. OT Junior Financial Analyst Goals [facility] Goals Time Frame: Apr 23, 2018 Eating (FIM): 6 (continue goal) Grooming(FIM): 6 (Met at wheelchair level.) Bathing(FIM): 5 (continue goal) Upper Body Dressing(FIM): 5 (continue goal) Lower Body Dressing(FIM): 5 (continue goal) Toileting(FIM): 6 (continue goal) Transfers (B,C,W/C) (FIM): 6 (continue goal) Toilet/Commode Transfer(FIM): 6 (continue gol) Shower Transfer(FIM): 5 (continue goal) Additional Goals: 1-Demonstrate ADL Tasks, 2-Verbalize Understanding, 3- ImproveStrength/Sukhdeep 1=Demonstrate adherence to instructed precautions during ADL tasks. 2=Patient will verbalize/demonstrate understanding of assistive devices/ modifications for ADL. 3=Patient will improve strength/tolerance for activity to enable patient to perform ADL's. NACCARATO,TIRSO OT Apr 23, 2018 09:55
--- NOTE | 2018-04-23 11:33 | Physical Therapy Daily Note ---
PT Daily Note-Current Subjective Patient in bed pre tx, agrees to PT, has no complaints of pain. Patient is very fatigued even though he slept all night. He seems to have more facial droop, nurse notified. Appearance Patient in bed post tx with nurse call, phone, tray, all needs met. Mental Status Patient Orientation: Person, Place, Situation Transfers Functional [place] Measure 0=Not Assessed/NA 4=Minimal Assistance 1=Total Assistance 5=Supervision or Setup 2=Maximal Assistance 6=Modified [place] 3=Moderate Assistance 7=Complete IndependenceIRFPAI Quality Coding Scale 6 Independent with activity with or without an assistive device 5 Patient requires set up or clean up by helper. Patient completes activity by themselves 4 Supervision or touching assist (CGA). [place] provide cues , steadying assist 3 The helper provides less than half the effort to complete the activity 2 The helper provides more than half the effort to complete the activity 1 Dependent. The helper does all the effort to complete an activity 7 Patient refused to complete or attempt activity 9 The patient did not perform the activity before the current illness or injury 88 Not attempted due to Medical conditions or safety concerns Transfers (B, C, W/C) (FIM): 3 Scootin Rollin Supine to/from Sit: 3 Sit to/from Stand: 3 Bed to/from Chair: 3 cues for hand placement and safety, patient needed more assist to stand today Weight Bearing Right Lower Extremity: Right Weight Bearing/Tolerated Left Lower Extremity: Left Weight Bearing/Tolerated Gait Training Gait (FIM): 1 Distance: 40', 20' Gait Level of Assist: 3 Gait Persons Needed: 1 Gait Assistive Device: Walker Rodolfo Patient leaned forward and to the left more during ambulation today, has increased left knee hyperextension, and increased fatigue Wheelchair Training Does the Pt Use a Wheelchair?: Yes Wheelchair (FIM): 5 Distance: 150' Type of Wheelchair: Manual Exercises NuStep Minutes: 15 NuStep Workload: 4 Treatments bed mobility and transfers, ambulation, functional strengthening Assessment Current Status: Poor Progress Patient needed more rest breaks, had more difficulty with functional mobility and ambulation, very fatigued today. He seems to have had a bit of a decline and increased facial droop, nurse notified. PT Short Term Goals Short Term Goals Time Frame: Apr 02, 2018 Transfers (B,C,W/C) (FIM): 3 Gait (FIM): 1 Gait Distance Comment: 20' Gait Level of Assist: 2 Gait Assistive Device: Cane Large Base Quad Wheelchair Distance: 150'x2 PT Heel Layer Goals Correction Goals PT Heel Layer Goals Time Frame: Apr 16, 2018 Transfers (B,C,W/C) (FIM): 4 Sit to Lying (QC): 3 Lying-Sitting on Side/Bed(QC): 3 Sit to Stand (QC): 3 Rollin Roll Left to Right (QC): 3 Chair/Izj-dy-Xisju Xfer(QC): 3 Car Transfer (QC): 3 Gait (FIM): 2 Distance: 50' Walk 10 feet (QC): 3 Walk 10ft-Uneven Surface(QC): 3 Walk 50ft with 2 Turns (QC): 3 Gait Level of Assist: 4 Gait Assistive Device: Cane Large Base Quad Wheelchair (FIM): 6 Distance: 200' Wheel 50 feet with 2 turns (QC: 6 PT Plan Problem List Problem List: Activity Tolerance, Functional Strength, Safety, Balance, Gait, Transfer, Bed Mobility, ROM Treatment/Plan Treatment Plan: Continue Plan of Care Treatment Plan: Bed Mobility, Concurrent Therapy, Education, Functional Activity Sukhdeep, Functional Strength, Group Therapy, Gait, Safety, Therapeutic Exercise, Transfers Treatment Duration: Apr 16, 2018 Frequency: At least 5 of 7 days/Wk (IRF) Estimated Hrs Per Day: 1.5 hours per day Patient and/or Family Agrees t: Yes Safety Risks/Education Patient Education: Gait Training, Transfer Techniques, Correct Positioning, W/ C Management, Safety Issues Teaching Recipient: Patient Teaching Methods: Demonstration, Discussion Response to Teaching: Reinforcement Needed Time/GCodes Time In: 0900 Time Out: 1000 Total Billed Treatment Time: 60 Total Billed Treatment 1 visit GT 15' WCH 10' EX 15' FA 20' CAMMY BLACK PT Apr 23, 2018 11:33
--- NOTE | 2018-04-23 11:52 | Occupational Ther Daily Note ---
OT Current Status-Daily Note Mental Status/Objective Functional [place] Measure 0=Not Assessed/NA 4=Minimal Assistance 1=Total Assistance 5=Supervision or Setup 2=Maximal Assistance 6=Modified [place] 3=Moderate Assistance 7=Complete [place] ADL-Treatment Min A supine to sitting EOB using bed rail and HOB raised. Pt transferred to [facility] with mod A. Mod A to manipulate clothing, pt able to complete own hygiene with SBA. Pt transferred to shower chair with cut out, mod A using victoriano walker. Transferred to shower in shower chair. Completed bathing and drying after set up using hand held shower and shower chair with cut out, close SBA. Mod A when standing while pt hikes pants over hips. Pt completed donning/doffing lower body clothing over feet, mod A. Pt requires cues to go through standing sequence prior to reaching for pants to hike over hips. Assist to don shirt due to pt unable to manipulate shirt. Assist to don socks, pt doffed socks by self crossing LE over knee. Pt transferred to bed from / with squat pivot with min A. After therapy, pt lying in bed with call light/phone in reach. All needs met in room. Functional [place] Measure 0=Not Assessed/NA 4=Minimal Assistance 1=Total Assistance 5=Supervision or Setup 2=Maximal Assistance 6=Modified [place] 3=Moderate Assistance 7=Complete IndependenceIRFPAI Quality Coding Scale 6 Independent with activity with or without an assistive device 5 Patient requires set up or clean up by helper. Patient completes activity by themselves 4 Supervision or touching assist (CGA). [place] provide cues , steadying assist 3 The helper provides less than half the effort to complete the activity 2 The helper provides more than half the effort to complete the activity 1 Dependent. The helper does all the effort to complete an activity 7 Patient refused to complete or attempt activity 9 The patient did not perform the activity before the current illness or injury 88 Not attempted due to Medical conditions or safety concerns Grooming (FIM): 6 (At w/c level, pt completes by self at sink.) Oral Hygiene (QC): 6 Bathing (FIM): 5 Bathing Location: L Arm, R Arm, L Upper Leg, R Upper Leg, L Lower Leg ( including foot), R Lower Leg (including foot), Chest, Abdomen, Buttocks, Perineal Area Shower/Bathe Self (QC): 4 Upper Body (FIM): 4 Upper Body Dressing (QC): 3 Lower Body Dressing (FIM): 3 Lower Body Dressing (QC): 2 On/Off Footwear (QC): 2 Toileting (FIM): 3 Toileting Hygiene (QC): 2 Toilet/Commode Transfer (FIM): 3 Toilet Transfer (QC): 2 Shower Transfer(FIM): 1 Pt continues to be fatigued which has hindered progress in ADLs and functional tasks. Pt does have active movement throughout L UE though does not spontaneously use for tasks. Pt demonstrates L neglect with L UE/LE when completing functional tasks or when L UE falls off of lap or w/c armrest. After therapy, pt lying in bed with call light/phone. All needs met in room. OT Short Term Goals Short Term Goals Time Frame: Apr 09, 2018 Eating(FIM): 6 Grooming(FIM): 5 Bathing(FIM): 4 Upper Body Dressing(FIM): 4 Lower Body Dressing(FIM): 3 Toileting(FIM): 4 Transfers (B,C,W/C) (FIM): 3 Toilet/Commode Transfer(FIM): 4 Shower Transfer(FIM): 4 Additional Short Term Goals: 1-Demonstrate ADL Tasks, 2-Verbalize Understanding , 3-ImproveStrength/Sukhdeep 1=Demonstrate adherence to instructed precautions during ADL tasks. 2=Patient will verbalize/demonstrate understanding of assistive devices/ modifications for ADL. 3=Patient will improve strength/tolerance for activity to enable patient to perform ADL's. OT Feeder Operator Goals Feeder Operator Goals Time Frame: Apr 23, 2018 Eating (FIM): 6 (continue goal) Eating (QC): 6 Groomin (Met at wheelchair level.) Oral Hygiene (QC): 6 Bathing(FIM): 5 (continue goal) Shower/Bathe Self (QC): 5 Upper Body Dressing(FIM): 5 (continue goal) Upper Body Dressing (QC): 5 Lower Body Dressing(FIM): 5 (continue goal) Lower Body Dressing (QC): 5 On/Off Footwear (QC): 5 Toileting(FIM): 6 (continue goal) Toileting Hygiene (QC): 6 Transfers (B,C,W/C) (FIM): 6 (continue goal) Toilet/Commode Transfer(FIM): 6 (continue gol) Toilet/Commode Transfer (QC): 6 Shower Transfer(FIM): 5 (continue goal) Additional Goals: 1-Demonstrate ADL Tasks, 2-Verbalize Understanding, 3- ImproveStrength/Sukhdeep 1=Demonstrate adherence to instructed precautions during ADL tasks. 2=Patient will verbalize/demonstrate understanding of assistive devices/ modifications for ADL. 3=Patient will improve strength/tolerance for activity to enable patient to perform ADL's. OT Education/Plan Discharge Recommendations Plan/Recommendations: Continue POC Treatment Plan/Plan of Care Patient would benefit from OT for education, treatment and training to promote independence in ADL's, mobility, safety and/or upper extremity function for ADL' s. Plan of Care: ADL Retraining, Caregiver Training, Functional Mobility, Group Exercise/Act as Ind, UE Funct Exercise/Act Treatment Duration: Apr 23, 2018 Frequency: At least 5 of 7 days/Wk (IRF) Estimated Hrs Per Day: 1.5 hours per day Agreement: Yes Rehab Potential: Fair Time/GCodes Start Time: 10:40 Stop Time: 11:55 Total Time Billed (hr/min): 75 Billed Treatment Time 1 visit-ADL 5 (75 min) JIMMY DHILLON Apr 23, 2018 11:52
--- NOTE | 2018-04-23 15:08 | Cardiology Progress Note ---
Cardiology SOAP Progress Note Subjective: No cardiac compliants. Objective: I&O/Vital Signs 04/23/18 04/23/18 06:39 09:00 Temp 98.8 Pulse 71 Resp 18 B/P (MAP) 128/74 (92) Pulse Ox 96 O2 Delivery Room Air Room Air 04/23/18 00:00 Intake Total 920 ml Balance 920 ml Weight (Pounds): 176 Weight (Ounces): 9.6 Weight (Calculated Kilograms): [id number] Constitutional: appears stated age, AAO x 3; No apparent distress; well- developed, well-nourished Respiratory: No accessory muscle use, No respiratory distress, No chest tender , No chest expansion is symmetric; chest is bilaterally symmetric; No lungs clear to percussion; lungs clear to auscultation; No crackles, No rhonchi, No rales, No stridor, No wheezing, No pleural rub, No other Cardiovascular: No regular rate-rhythm; irregularly irregular; No extra beats, No parasternal heave is noted, No JVD, No edema, No bradycardia, No tachycardia , No point of maximal impulse, No cardiac thrills are palpable; S1 and S2; No gallop/S3, No gallop/S4, No diastolic murmur; systolic murmur; No friction rub, No click, No other Gastrointestional: No tender, No soft, No round, No distended, No pulsatile mass, No organomegaly, No guarding, No rebound, No tenderness, No hernia, No mass, No audible bowel sounds, No abnormal bowel sounds, No abdominal bruits, No spleenomegaly, No other Extremities: No normal range of motion, No non-tender, No normal inspection, No pedal edema, No calf tenderness, No normal capillary refill, No pelvis stable , No calf tenderness, No inflammation, No pedal edema, No slow capillary refill , No swelling, No other, No abrasion, No clubbing, No cyanosis, No ecchymosis, No laceration, No no lower extremity edema bilateral, No significant edema, No tenderness, No wound Neurologic/Psychiatric: alert, oriented x 3, motor weakness Skin: No normal color, No warm/dry, No cyanosis, No cool, No diaphoresis, No damp, No ecchymosis, No jaundice, No mottled, No pallor, No rash, No tattoos/ piercings, No ulcerations, No rash on exposed areas, No ulcerations on exposed areas, No other Results/Procedures: Labs Laboratory Tests 04/22/18 16:26: Glucometer 127H 04/22/18 20:19: Glucometer 149H 04/23/18 06:27: Glucometer 105 04/23/18 11:42: Glucometer 159H A/P: Assessment/Dx: Frequent thromboembolic event, Persistent Atrial fibrillation, CAD, CABG, Ischemic cardiomyopathy, Aortic stenosis, Chest pain, Pulmonary hypertension Plan: CAD/CABG: Recent coronary angiography at [facility] showed patent grafts with distal disease not amenable to PCI. Medical therapy was recommended. On Plavix and Eliquis. Recurrent CVA/thromboembolic events: On Eliquis. Persistent atrial fibrillation on amiodarone and Eliquis. Also on diltiazem and beta sammie. Ischemic cardiomyopathy: LVEF 45 percent. On metoprolol. Pulmonary hypertension, continue to follow clinically. Thank you for your consultation. Please call me if you have any questions. Malcolm House MD, FACP, FACC, FSCAI, FHRS, CCDS Interventional Cardiology Cardiac Electrophysiology Vascular Medicine and Endovascular Interventions Boby HOUSE MD Apr 23, 2018 3:07 pm
--- NOTE | 2018-04-23 15:14 | Physical Therapy Daily Note ---
PT Daily Note-Current Subjective Pt in bed pre tx, agrees to PT, no pain to report, Appearance Pt in bed post tx, w/ phone, call light, tray, all needs met Mental Status Patient Orientation: Person, Place, Time Transfers Functional [place] Measure 0=Not Assessed/NA 4=Minimal Assistance 1=Total Assistance 5=Supervision or Setup 2=Maximal Assistance 6=Modified [place] 3=Moderate Assistance 7=Complete IndependenceIRFPAI Quality Coding Scale 6 Independent with activity with or without an assistive device 5 Patient requires set up or clean up by helper. Patient completes activity by themselves 4 Supervision or touching assist (CGA). [place] provide cues , steadying assist 3 The helper provides less than half the effort to complete the activity 2 The helper provides more than half the effort to complete the activity 1 Dependent. The helper does all the effort to complete an activity 7 Patient refused to complete or attempt activity 9 The patient did not perform the activity before the current illness or injury 88 Not attempted due to Medical conditions or safety concerns Transfers (B, C, W/C) (FIM): 3 Scootin Supine to/from Sit: 3 Sit to/from Stand: 3 Bed to/from Chair: 3 Pt modA w/ all transfers, pt needs lots of cues for foot and hand placement, Weight Bearing Right Lower Extremity: Right Weight Bearing/Tolerated Left Lower Extremity: Left Weight Bearing/Tolerated Wheelchair Training Does the Pt Use a Wheelchair?: Yes Wheelchair (FIM): 4 Wheelchair Distance: 3=150 ft Distance: 150' Wheelchair Level of Assist: 4 Type of Wheelchair: Manual Pt uses W/C to gym w/ Johan turning and avoiding objects, pt uses RUE and RLE for propulsion Exercises Supine Ex: Ankle pumps, Heel Slides, Short Arc Quads, Hip abd/add Supine Reps: 20 (to promote LE strenth for gait and transfers.) Treatments w/c training, functional strengthening/AROM Assessment Current Status: Poor Progress Pt still struggling w/ sleep, states he got better sleep last night, but appears very fatigued, demonstrates decreased activity tolerance, and increased assistance needed for transfers PT Short Term Goals Short Term Goals Time Frame: Apr 02, 2018 Transfers (B,C,W/C) (FIM): 3 Gait (FIM): 1 Gait Distance Comment: 20' Gait Level of Assist: 2 Gait Assistive Device: Cane Large Base Quad Wheelchair Distance: 150' PT Chcf Goals Chcf Goals PT Chcf Goals Time Frame: Apr 16, 2018 Transfers (B,C,W/C) (FIM): 4 Sit to Lying (QC): 3 Lying-Sitting on Side/Bed(QC): 3 Sit to Stand (QC): 3 Rollin Roll Left to Right (QC): 3 Chair/Wjn-io-Aauww Xfer(QC): 3 Car Transfer (QC): 3 Gait (FIM): 2 Distance: 50' Walk 10 feet (QC): 3 Walk 10ft-Uneven Surface(QC): 3 Walk 50ft with 2 Turns (QC): 3 Gait Level of Assist: 4 Gait Assistive Device: Cane Large Base Quad Wheelchair (FIM): 6 Distance: 200' Wheel 50 feet with 2 turns (QC: 6 PT Plan Problem List Problem List: Activity Tolerance, Functional Strength, Safety, Balance, Gait, Transfer, Bed Mobility, ROM Treatment/Plan Treatment Plan: Continue Plan of Care Treatment Plan: Bed Mobility, Concurrent Therapy, Education, Functional Activity Sukhdeep, Functional Strength, Group Therapy, Gait, Safety, Therapeutic Exercise, Transfers Treatment Duration: Apr 16, 2018 Frequency: At least 5 of 7 days/Wk (IRF) Estimated Hrs Per Day: 1.5 hours per day Patient and/or Family Agrees t: Yes Safety Risks/Education Patient Education: Gait Training, Transfer Techniques, Correct Positioning, Safety Issues Teaching Recipient: Patient Teaching Methods: Demonstration, Discussion Response to Teaching: Reinforcement Needed Time/GCodes Time In: 1330 Time Out: 1400 Total Billed Treatment Time: 30 Total Billed Treatment 1 visit [facility] x1 EX x1 JIMMY MOURA PT Apr 23, 2018 15:14
[2018-04-23 16:11] VITALS: BP 130/81
[2018-04-23] MEDS: traZODone 50 MG (DESYREL) TAB PO SCH (21:17)
[2018-04-23] MEDS: ATORVASTATIN 40 MG (LIPITOR) TABLET PO SCH (21:17)
[2018-04-23] MEDS: POLYETHYLENE GLYCOL 17 GM (MIRALAX) PACK PO SCH (21:17)
[2018-04-24 05:04] VITALS: BP 125/67
[2018-04-24] MEDS: inSUlin ASPART (NovoLOG) 1 UNIT/0.01 ML (CHARGE PER UNIT) SC SCH ×4 (05:06→21:08)
[2018-04-24] MEDS: LACTOBACILLUS Acidoph/Bulgar (LACTINEX/FLORANEX) TAB PO SCH (05:34)
--- NOTE | 2018-04-24 07:33 | PM & R (SOAP) Progress Note ---
Subjective This was a face to face visit with the patient. Date Seen by Provider: Apr 24, 2018 Time Seen by Provider: 06:45 Subjective/Events-last exam Patient was seen in his room this AM RN reports that patient slept well last nigth Accucheks trending down Defer to PCP re further management Discharge set for Friday04-27-18 to local SNU for ongoing care and therapies,current meds reviewed Objective Physician Exam Last Set of Vital Signs Vital Signs Date Time Temp Pulse Resp B/P (MAP) Pulse Ox O2 Delivery O2 Flow Rate FiO2 04/24/18 05:04 98.9 72 16 125/67 (86) 97 Room Air Capillary Refill : I&O Intake and Output 04/24/18 00:00 Intake Total 325 ml Balance 325 ml Intake Oral 325 ml # Voids 5 # Bowel Movements 2 General: Alert, Cooperative, No Acute Distress HEENT: Atraumatic, PERRLA, EOMI, Mucous Memb Moist/[place], Other (Dysphagia dysarthria ) Neck: Supple, No JVD Lungs: Clear to Auscultation, Other (Decreased breath sounds) Heart: Normal S1, Normal S2, Other (Systolic murmur at the left sternal border) Abdomen: Normal Bowel Sounds, Soft, No Tenderness Extremities: No Clubbing, No Cyanosis, No Edema Skin: No Rashes, No Breakdown Neuro: Other (Can SLR bilayeral with Left arm still weak) Psych/Mental Status: Mental Status NL, Mood NL Results Lab Data Laboratory Tests 04/21/18 10:47: Glucometer 123H 04/21/18 15:53: Glucometer 122H 04/21/18 20:14: Glucometer 143H 04/22/18 01:37: Glucometer 127H 04/22/18 05:37: Glucometer 94 04/22/18 11:51: Glucometer 228H 04/22/18 16:26: Glucometer 127H 04/22/18 20:19: Glucometer 149H 04/23/18 06:27: Glucometer 105 04/23/18 11:42: Glucometer 159H 04/23/18 16:05: Glucometer 200H 04/23/18 20:16: Glucometer 137H 04/24/18 03:33: Glucometer 61L 04/24/18 03:58: Glucometer 55*L 04/24/18 04:15: Glucometer 65L 04/24/18 05:31: Glucometer 117H Assessment/Plan Assessment and Plan RT Cva with Left HP with fair return in Lower limb Dysphagia on Thickened liquid DM with Accucheks trending down F/U with PCP re adjustment in Insulin see orders Chronic A FIB CAD Depression improved with meds Insomnia improved with med Constipation treated Mild to Moderate Plan Continue PT/OT/ST F/U with PCP re adjustment in Insulin Discharge set for Friday04-27-18 to local SNU for ongoing care and therapies Co-Morbidities that are continuing to impact the rehab process: (include details ) EMMY JULIEN MD Apr 24, 2018 07:33
[2018-04-24] MEDS ORDERED: CLOP75TA28 PO (07:44)
[2018-04-24] MEDS ORDERED: ATOR40TA PO (07:44)
[2018-04-24] MEDS ORDERED: ACID1TAB PO (07:44)
[2018-04-24] MEDS ORDERED: METO-387 PO (07:44)
[2018-04-24] MEDS ORDERED: LOSA25TA6 PO (07:44)
[2018-04-24] MEDS ORDERED: INSU100V5 SQ ×2 (07:44)
[2018-04-24] MEDS ORDERED: ACET325T49 PO (07:44)
[2018-04-24] MEDS ORDERED: APIX5TAB PO (07:44)
[2018-04-24] MEDS ORDERED: CITA20TA9 PO (07:44)
[2018-04-24] MEDS ORDERED: FAMO20TA5 PO (07:44)
[2018-04-24] MEDS ORDERED: LORA10TA7 PO (07:44)
[2018-04-24] MEDS: LORATADINE (CLARITIN) 10 MG TAB PO SCH (08:20)
[2018-04-24] MEDS: LOSARTAN 25 MG (COZAAR) TAB PO SCH (08:20)
[2018-04-24] MEDS: APIXABAN 5 MG (ELIQUIS) TABLET PO SCH ×2 (08:20→21:05)
[2018-04-24] MEDS: AMIODARONE 200 MG (CORDARONE) TAB PO SCH ×2 (08:20→21:08)
[2018-04-24] MEDS: SENNA W/DOCUSATE (SENOKOT S) TABLET PO SCH ×2 (08:20→21:07)
[2018-04-24] MEDS: FLUTICASONE NASAL SPRAY (FLONASE) 16 GM BTL NS SCH (08:20)
[2018-04-24] MEDS: FAMOTIDINE 20 MG (PEPCID) TABLET PO SCH ×2 (08:20→21:05)
[2018-04-24] MEDS: CLOPIDOGREL 75 MG (PLAVIX) TABLET PO SCH (08:20)
[2018-04-24] MEDS: inSUlin DETERMIR 1 UNIT/0.01 ML (LEVEMIR) CHARGE PER UNIT SQ SCH ×2 (08:21→21:05)
--- NOTE | 2018-04-24 10:29 | Occupational Ther Daily Note ---
OT Current Status-Daily Note Subjective Pt alert, lying in bed. Pt's stated that nrsg was just in room, BP and blood sugar was low. Pt agrees to therapy. Mental Status/Objective Functional [place] Measure 0=Not Assessed/NA 4=Minimal Assistance 1=Total Assistance 5=Supervision or Setup 2=Maximal Assistance 6=Modified [place] 3=Moderate Assistance 7=Complete [place] ADL-Treatment Functional [place] Measure 0=Not Assessed/NA 4=Minimal Assistance 1=Total Assistance 5=Supervision or Setup 2=Maximal Assistance 6=Modified [place] 3=Moderate Assistance 7=Complete IndependenceIRFPAI Quality Coding Scale 6 Independent with activity with or without an assistive device 5 Patient requires set up or clean up by helper. Patient completes activity by themselves 4 Supervision or touching assist (CGA). [place] provide cues , steadying assist 3 The helper provides less than half the effort to complete the activity 2 The helper provides more than half the effort to complete the activity 1 Dependent. The helper does all the effort to complete an activity 7 Patient refused to complete or attempt activity 9 The patient did not perform the activity before the current illness or injury 88 Not attempted due to Medical conditions or safety concerns Other Treatment Due to low BP and blood sugar, pt completed OT in supine. L UE APROM completed , verbal and physical prompts needed for full ROM. Pt able to complete all movements though does not spontaneously use L UE for functional movements. Arm bike completed 10 min with L hand wrapped onto handle to retain paperhanger apprentice. Multiple recovery breaks needed, no resistance used. Light resistance theraband exercises completed 2 sets 5-10's depending on pt's fatigue level. After therapy, pt lying in bed with call light/phone in reach. present in room. All need met. OT Short Term Goals Short Term Goals Time Frame: Apr 09, 2018 Eating(FIM): 6 Grooming(FIM): 5 Bathing(FIM): 4 Upper Body Dressing(FIM): 4 Lower Body Dressing(FIM): 3 Toileting(FIM): 4 Transfers (B,C,W/C) (FIM): 3 Toilet/Commode Transfer(FIM): 4 Shower Transfer(FIM): 4 Additional Short Term Goals: 1-Demonstrate ADL Tasks, 2-Verbalize Understanding , 3-ImproveStrength/Sukhdeep 1=Demonstrate adherence to instructed precautions during ADL tasks. 2=Patient will verbalize/demonstrate understanding of assistive devices/ modifications for ADL. 3=Patient will improve strength/tolerance for activity to enable patient to perform ADL's. OT Fire Hazard Inspector Goals Fire Hazard Inspector Goals Time Frame: Apr 23, 2018 Eating (FIM): 6 (continue goal) Eating (QC): 6 Groomin (Met at wheelchair level.) Oral Hygiene (QC): 6 Bathing(FIM): 5 (continue goal) Shower/Bathe Self (QC): 5 Upper Body Dressing(FIM): 5 (continue goal) Upper Body Dressing (QC): 5 Lower Body Dressing(FIM): 5 (continue goal) Lower Body Dressing (QC): 5 On/Off Footwear (QC): 5 Toileting(FIM): 6 (continue goal) Toileting Hygiene (QC): 6 Transfers (B,C,W/C) (FIM): 6 (continue goal) Toilet/Commode Transfer(FIM): 6 (continue gol) Toilet/Commode Transfer (QC): 6 Shower Transfer(FIM): 5 (continue goal) Additional Goals: 1-Demonstrate ADL Tasks, 2-Verbalize Understanding, 3- ImproveStrength/Sukhdeep 1=Demonstrate adherence to instructed precautions during ADL tasks. 2=Patient will verbalize/demonstrate understanding of assistive devices/ modifications for ADL. 3=Patient will improve strength/tolerance for activity to enable patient to perform ADL's. OT Education/Plan Discharge Recommendations Plan/Recommendations: Continue POC Treatment Plan/Plan of Care Patient would benefit from OT for education, treatment and training to promote independence in ADL's, mobility, safety and/or upper extremity function for ADL' s. Plan of Care: ADL Retraining, Caregiver Training, Functional Mobility, Group Exercise/Act as Ind, UE Funct Exercise/Act Treatment Duration: Apr 23, 2018 Frequency: At least 5 of 7 days/Wk (IRF) Estimated Hrs Per Day: 1.5 hours per day Agreement: Yes Rehab Potential: Fair Time/GCodes Start Time: 08:15 Stop Time: 09:00 Total Time Billed (hr/min): 45 Billed Treatment Time 1 visit-NM 3 (45 min) JIMMY DHILLON Apr 24, 2018 10:29
--- NOTE | 2018-04-24 10:35 | Speech Therapy Daily Note ---
Speech Daily Progress Note Subjective Date Seen by Provider: Apr 24, 2018 Time Seen by Provider: 09:00 Pt in bed. Pain Numeric Pain Scale: 0-No Pain Objective Provided pt with ice chips for 30 minutes. Out of 17 trials, observed aspiration x1. Pt stated he didn't have his head tucked. Assessment Assessment Current Status: Fair Progress Treatment Plan Continue Plan of Care Communication Comprehension: 6 Expression: 7 Social Cognition Social Interaction: 7 Problem Solvin Memory: 7 Speech Short Term Goals Short Term Goals Short Term Goals This is effective 04/16/2018: 1. Pt will complete Oral Motor Exercises independently. 2. Pt will demonstrate tolerance for ice chips with no more that 2 episodes of possible aspiration. Time Frame-ST weeks Speech Mcc Goals A R Collections Rep Goals This is effective 04/16/2018: 1. Pt will tolerate regular diet with thin liquids with no s/s of aspiration. Time Frame: 2 weeks Speech-Plan Patient/Family Goals Patient/Family Goals: drink thin liquids Treatment Plan Speech Therapy Treatment Plan: Discontinue ST Pt is dc'd from skilled ST due to being discharged to SNF on Friday. Continued skilled ST recommended in new setting. Treatment Duration: Mar 26, 2018 Frequency: Modified Program (IRF) (pt dc'ed) Estimated Hrs Per Day: Other (pt dc'd) Rehab Potential: Fair Pt/Family Agrees to Plan: Yes Safety Risks/Education Teaching Recipient: Patient, Family Teaching Methods: Discussion Response to Teaching: Verbalize Understanding Time Speech Therapy Time In: 09:00 Speech Therapy Time Out: 09:30 Total Billed Time: 30 Billed Treatment Time 1, DYST No MAGALY GARAY Apr 24, 2018 10:35
[2018-04-24] MEDS: LACTOBACILLUS ACIDOPHILUS (PROBIOTIC) CAPSULE PO SCH ×2 (11:15→16:39)
--- NOTE | 2018-04-24 12:39 | Progress Note-Hospitalist ---
Subjective HPI/CC On Admission Date Seen by Provider: Apr 24, 2018 Time Seen by Provider: 11:40 Mr. Guerin is a frail 73-year-old white male who developed abrupt onset of left upper quadrant pain on 18 March. 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 He was discharged with pain medication. On [address] scanning of the chest with contrast for evaluation of subcarinal fullness. It was felt to represent adenopathy a little more prominent than a previous CT scan of the chest in 2012 per radiologist report. No pulmonary abnormalities were reported. He also had significant cholelithiasis without symptoms to suggest cholecystitis. Sometime shortly thereafter he developed left-sided weakness and was transferred to [place] where he was noted to have a right sided CVA without evidence for significant extracranial vascular disease. He ultimately underwent cardiac catheterization as well which reportedly revealed mild hypokinesis with estimated ejection fraction of 40 percent he did have 3 patent grafts he had some disease in the PDA distal to his RCA graft and also had some disease in the obtuse marginal system that was not bypassed. Medical management was opted for however and the patient did not undergo any endovascular-based therapy. He is transferred back to our rehabilitation unit to continue redilatation for deficits that include left-sided hemiparesis as well as dysarthria and mild dysphasia. He reports that he has been swallowing without coughing on thickened liquids and solids. He denies abdominal pain but does note some sores in his mouth. He states that while he still has significant weakness he has had improvement in movement of the left upper extremity and left lower extremity. The left lower extremity is been affected to a lesser degree than left upper extremity. Past medical history seen for long-standing poorly controlled insulin requiring type II diabetes due to poor compliance with bolus therapy for many years. 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 For this reason he had not been on anticoagulant therapy for known underlying persistent atrial fibrillation. He had no previous known history of thromboembolic disease. He has been placed on eliquis and reports no change in vision and also denies ocular pain. He also was diagnosed with urinary tract infection and discharged on Levaquin to our facility. He also has known significant peripheral neuropathy and pressure ulceration with past osteomyelitis of the great toe requiring partial amputation on the left. In the past she's had multiple foot ulcers but is been some time since he last required treatment for diabetic-related foot ulceration. Subjective/Events-last exam patient was eating lunch upon my arrival. His appetite has been poor and he had a hypoglycemic mild episode this morning level was in the 50s now. Count 160 after 2 glasses of chocolate milk. He initially reported feeling depressed over the need to go to a intermediate from here set up for this Friday. The realistic game plan however as pointed out the patient is to get him home ultimately after likely another month or so of PT and OT at [facility]. His blood pressure was little low normal this morning of reportedly 110/ 50 range. He refused to take his blood pressure medication. He denies chest pain or shortness of breath has had no palpitations or presyncope syncope or lightheadedness. Objective Exam Vital Signs Vital Signs Date Time Temp Pulse Resp B/P (MAP) Pulse Ox O2 Delivery O2 Flow Rate FiO2 04/24/18 08:00 97 Room Air 04/24/18 05:04 98.9 72 16 125/67 (86) Capillary Refill : General Appearance: No Apparent Distress, Chronically ill, Thin Respiratory: Chest Non Tender, Lungs Clear, Normal Breath Sounds, No Accessory Muscle Use, No Respiratory Distress Cardiovascular: No Gallop, No JVD, Systolic Murmur (2 to 3/6 systolic ejection murmur unchanged), Irregularly Irregular Gastrointestinal: Normal Bowel Sounds, No Organomegaly, No Pulsatile Mass, Non Tender, Soft Results/Procedures Lab Patient resulted labs reviewed. Assessment/Plan Assessment and Plan Assess & Plan/Chief Complaint 1. 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 Considering splenic infarct likely embolic as well we did discuss the risk of anticoagulant therapy and recurrent hemorrhage versus benefits. In my estimation benefits significantly outweigh risk as she would be highly likely to continue to have embolic symptoms. The downside would be retinal hemorrhages would likely lead to blindness in the affected eye. Patient agrees with continuing anticoagulant therapy.No change in vision reported. Barium base swallowing study does reveal evidence for small volume aspiration and vallecular pooling. Patient has no evidence for aspiration pneumonitis at this time continuing to work with speech therapy. 2. Known significant coronary artery disease with mild LV systolic dysfunction continue baby aspirin daily. 3. Type II diabetes mellitus insulin requiring erratic control due to erratic by mouth intake will decrease Levemir to 10 unitsin the morning and 5 units at night. If his appetite increases however his blood sugar levels will go up and will likely be increasing insulin continue to monitor. 4. Thrush resolved will DC nystatin.. 5. Chronic atrial fibrillation currently rate controlled. 6. Reported urinary tract infection with resolution on repeat UA.. 7. Carinal fullness on CT scan possible adenopathy considering the patient's frailty and multiple medical symptoms we will see about obtaining PET scan as an outpatient. 8. Depression ndogenous as well as reactive likely contributing to poor appetite will increase citalopram to 40 mg at at bedtime and see if this does not help out insomnia as wellwhich is likely due to depression. .9. Known chronic systolic heart failure secondary to ischemic cardiomyopathy discussed the fact that thus far as blood pressures have not been too low and as long she is not having significant orthostatic hypotension he needed to stay on metoprolol and losartan for heart failure prevention. Clinical Quality Measures DVT/VTE Risk/Contraindication: Risk Factor Score Per Nursin RFS Level Per Nursing on Admit: 4+=Very High BEVERLY FERNANDES MD Apr 24, 2018 12:39
--- NOTE | 2018-04-24 12:41 | Cardiology Progress Note ---
Cardiology SOAP Progress Note Subjective: Episode of hypotension this morning. Objective: I&O/Vital Signs 04/24/18 04/24/18 05:04 08:00 Temp 98.9 Pulse 72 Resp 16 B/P (MAP) 125/67 (86) Pulse Ox 97 97 O2 Delivery Room Air Room Air 04/24/18 00:00 Intake Total 200 ml Balance 200 ml Weight (Pounds): 176 Weight (Ounces): 9.6 Weight (Calculated Kilograms): 80.735937 Constitutional: appears stated age, AAO x 3; No apparent distress; well- developed, well-nourished Respiratory: No accessory muscle use, No respiratory distress, No chest tender , No chest expansion is symmetric; chest is bilaterally symmetric; No lungs clear to percussion; lungs clear to auscultation; No crackles, No rhonchi, No rales, No stridor, No wheezing, No pleural rub, No other Cardiovascular: No regular rate-rhythm; irregularly irregular; No extra beats, No parasternal heave is noted, No JVD, No edema, No bradycardia, No tachycardia , No point of maximal impulse, No cardiac thrills are palpable; S1 and S2; No gallop/S3, No gallop/S4, No diastolic murmur; systolic murmur; No friction rub, No click, No other Gastrointestional: No tender, No soft, No round, No distended, No pulsatile mass, No organomegaly, No guarding, No rebound, No tenderness, No hernia, No mass, No audible bowel sounds, No abnormal bowel sounds, No abdominal bruits, No spleenomegaly, No other Extremities: No normal range of motion, No non-tender, No normal inspection, No pedal edema, No calf tenderness, No normal capillary refill, No pelvis stable , No calf tenderness, No inflammation, No pedal edema, No slow capillary refill , No swelling, No other, No abrasion, No clubbing, No cyanosis, No ecchymosis, No laceration, No no lower extremity edema bilateral, No significant edema, No tenderness, No wound Neurologic/Psychiatric: alert, oriented x 3, motor weakness Skin: No normal color, No warm/dry, No cyanosis, No cool, No diaphoresis, No damp, No ecchymosis, No jaundice, No mottled, No pallor, No rash, No tattoos/ piercings, No ulcerations, No rash on exposed areas, No ulcerations on exposed areas, No other Results/Procedures: Labs Laboratory Tests 04/23/18 16:05: Glucometer 200H 04/23/18 20:16: Glucometer 137H 04/24/18 03:33: Glucometer 61L 04/24/18 03:58: Glucometer 55*L 04/24/18 04:15: Glucometer 65L 04/24/18 05:31: Glucometer 117H 04/24/18 11:14: Glucometer 166H A/P: Assessment/Dx: Frequent thromboembolic event, Persistent Atrial fibrillation, CAD, CABG, Ischemic cardiomyopathy, Aortic stenosis, Chest pain, Pulmonary hypertension Plan: CAD/CABG: Recent coronary angiography at [facility] showed patent grafts with distal disease not amenable to PCI. Medical therapy was recommended. On Plavix and Eliquis. Recurrent CVA/thromboembolic events: On Eliquis. Persistent atrial fibrillation on amiodarone and Eliquis. Also on diltiazem and beta sammie. Ischemic cardiomyopathy: LVEF 45 percent. On metoprolol. Pulmonary hypertension, continue to follow clinically. Episode of hypotension this morning: Will hold Cozaar. Metoprolol succinate 25 mg will be changed to 12.5 mg daily. If the patient still continues to be hypertension will discontinue metoprolol completely. Thank you for your consultation. Please call me if you have any questions. Malcolm House MD, FACP, FACC, FSCAI, FHRS, CCDS Interventional Cardiology Cardiac Electrophysiology Vascular Medicine and Endovascular Interventions Boby HOUSE MD Apr 24, 2018 12:41 pm
--- NOTE | 2018-04-24 13:31 | Physical Therapy Daily Note ---
PT Daily Note-Current Subjective Pt in bed pre tx, agrees to PT, no pain to report Appearance Pt in recliner post tx, w/ phone, call light, tray, all needs met Mental Status Patient Orientation: Person, Place, Time Transfers Functional [place] Measure 0=Not Assessed/NA 4=Minimal Assistance 1=Total Assistance 5=Supervision or Setup 2=Maximal Assistance 6=Modified [place] 3=Moderate Assistance 7=Complete IndependenceIRFPAI Quality Coding Scale 6 Independent with activity with or without an assistive device 5 Patient requires set up or clean up by helper. Patient completes activity by themselves 4 Supervision or touching assist (CGA). [place] provide cues , steadying assist 3 The helper provides less than half the effort to complete the activity 2 The helper provides more than half the effort to complete the activity 1 Dependent. The helper does all the effort to complete an activity 7 Patient refused to complete or attempt activity 9 The patient did not perform the activity before the current illness or injury 88 Not attempted due to Medical conditions or safety concerns Transfers (B, C, W/C) (FIM): 3 Scootin Rollin Supine to/from Sit: 3 Sit to/from Stand: 3 Bed to/from Chair: 3 Pt modA for all transfers, pt needs cues for leaning forward and often fails to generate enough momentum for lift off during sit<->stand as well as difficulty controlling descent and tends to flop into seat, pt needs assistance w/ getting legs into/out of bed and occasionally sitting balance during supine<->sit, bed < ->chair pt needs cues for foot and hand placement. Weight Bearing Right Lower Extremity: Right Weight Bearing/Tolerated Left Lower Extremity: Left Weight Bearing/Tolerated Gait Training Does the Patient Walk?: Yes Gait (FIM): 2 Distance (FIM): 6=878-15 ft Distance: 40', 20'x2 Gait Level of Assist: 3 Gait Persons Needed: 1 Gait Assistive Device: Walker Rodolfo Pt ambulates w/ rodolfo-walker w/ modA, pt demonstrates L knee hyperextension and constantly leans forward and towards L side. Needs lots of cues for standing up straight and leaning towards R side, gait is slow w/ shuffled steps Wheelchair Training Does the Pt Use a Wheelchair?: Yes Wheelchair (FIM): 2 Wheelchair Distance: 4=727-63 ft Distance: 100' Wheelchair Level of Assist: 4 Type of Wheelchair: Manual Pt uses manual W/C to the gym w/ RLE and RUE for propulsion, pt needs Johan for turning and avoiding objects. Exercises NuStep Minutes: 15 NuStep Workload: 3 Treatments w/c training, gait training, endurance training Assessment Current Status: Poor Progress pt requires greater assistance and cues for transfers and gait training, appears to be very fatigued, likely due to lack of sleep. PT Short Term Goals Short Term Goals Time Frame: Apr 02, 2018 Transfers (B,C,W/C) (FIM): 3 Gait (FIM): 1 Gait Distance Comment: 20' Gait Level of Assist: 2 Gait Assistive Device: Cane Large Base Quad Wheelchair Distance: 150' PT Computing Services Director Goals Retirement Goals PT Retirement Goals Time Frame: Apr 16, 2018 Transfers (B,C,W/C) (FIM): 4 Sit to Lying (QC): 3 Lying-Sitting on Side/Bed(QC): 3 Sit to Stand (QC): 3 Rollin Roll Left to Right (QC): 3 Chair/Sni-kg-Blvya Xfer(QC): 3 Car Transfer (QC): 3 Gait (FIM): 2 Distance: 50' Walk 10 feet (QC): 3 Walk 10ft-Uneven Surface(QC): 3 Walk 50ft with 2 Turns (QC): 3 Gait Level of Assist: 4 Gait Assistive Device: Cane Large Base Quad Wheelchair (FIM): 6 Distance: 200' Wheel 50 feet with 2 turns (QC: 6 PT Plan Problem List Problem List: Activity Tolerance, Functional Strength, Safety, Balance, Gait, Transfer, Bed Mobility, ROM Treatment/Plan Treatment Plan: Continue Plan of Care Treatment Plan: Bed Mobility, Concurrent Therapy, Education, Functional Activity Sukhdeep, Functional Strength, Group Therapy, Gait, Safety, Therapeutic Exercise, Transfers Treatment Duration: Apr 27, 2018 Frequency: At least 5 of 7 days/Wk (IRF) Estimated Hrs Per Day: 1.5 hours per day Patient and/or Family Agrees t: Yes Safety Risks/Education Patient Education: Gait Training, Transfer Techniques, Correct Positioning, W/ C Management, Safety Issues Teaching Recipient: Patient Teaching Methods: Demonstration, Discussion Response to Teaching: Reinforcement Needed Time/GCodes Time In: 1000 Time Out: 1100 Total Billed Treatment Time: 60 Total Billed Treatment 1 visit [facility] 15' GT 30' EX 15' KRTEK,CAMMY PT Apr 24, 2018 13:31
--- NOTE | 2018-04-24 14:49 | Therapy Group Daily Note ---
Therapy Daily Group Note Patient Education Topic Other List Below (ARU description/expectations, nutrition, oral health, neuropathy) Exercises UE Exercise Other/Notes Pt transported via w/c to OT/PT group. Group consisted of introductions (name, place, worst food eaten), socialization, ARU description/expectation, education on nutrition/oral health/neuropathy and fine motor activity. Pt introduced self appropriately and actively listened to peers. Pt verbalized understanding about educational topics. Contributed to topics and discussions throughout group. Pt demonstrated good fine motor skills during activities during group. Pt used fork to spear small bites of fruit and brought to mouth. After group, pt transported via w/c to room and laid down in bed with call light/phone in reach. All needs met. Start Time: 13:00 Stop Time: 14:15 Total Billed Treatment Time: 75 Total Billed Treatment 1-GRP JIMMY DHILLON Apr 24, 2018 14:49
[2018-04-24 16:35] VITALS: BP 119/75
[2018-04-24] MEDS: ATORVASTATIN 40 MG (LIPITOR) TABLET PO SCH (21:06)
[2018-04-24] MEDS: traZODone 50 MG (DESYREL) TAB PO SCH (21:06)
[2018-04-24] MEDS: ACETAMINOPHEN 325 MG TABLET PO PRN (21:07)
[2018-04-24] MEDS: POLYETHYLENE GLYCOL 17 GM (MIRALAX) PACK PO SCH (21:07)
[2018-04-25] MEDS: LACTOBACILLUS ACIDOPHILUS (PROBIOTIC) CAPSULE PO SCH ×3 (05:40→16:24)
[2018-04-25] MEDS: inSUlin ASPART (NovoLOG) 1 UNIT/0.01 ML (CHARGE PER UNIT) SC SCH ×4 (05:45→20:48)
[2018-04-25 06:15] VITALS: BP 123/70
--- NOTE | 2018-04-25 07:26 | PM & R (SOAP) Progress Note ---
Subjective This was a face to face visit with the patient. Date Seen by Provider: Apr 25, 2018 Time Seen by Provider: 06:55 Subjective/Events-last exam Patient was seen in his room this AM More alest this AM Aware of pending discharge this coming Friday the .Appreciate DR To note and orders. Objective Physician Exam Last Set of Vital Signs Vital Signs Date Time Temp Pulse Resp B/P (MAP) Pulse Ox O2 Delivery O2 Flow Rate FiO2 04/25/18 06:15 99.0 66 16 123/70 (87) 90 Room Air Capillary Refill : I&O Intake and Output 04/25/18 00:00 Intake Total 1200 ml Balance 1200 ml Intake Oral 1200 ml # Voids 7 # Bowel Movements 4 General: Alert, Cooperative, No Acute Distress HEENT: Atraumatic, PERRLA, EOMI, Mucous Memb Moist/[place], Other (Dysphagia dysarthria ) Neck: Supple, No JVD Lungs: Clear to Auscultation, Other (Decreased breath sounds) Heart: Normal S1, Normal S2, Other (Systolic murmur at the left sternal border) Abdomen: Normal Bowel Sounds, Soft, No Tenderness Extremities: No Clubbing, No Cyanosis, No Edema Skin: No Rashes, No Breakdown Neuro: Other (Can SLR bilayeral with Left arm still weak) Psych/Mental Status: Mental Status NL, Mood NL Results Lab Data Laboratory Tests 04/22/18 11:51: Glucometer 228H 04/22/18 16:26: Glucometer 127H 04/22/18 20:19: Glucometer 149H 04/23/18 06:27: Glucometer 105 04/23/18 11:42: Glucometer 159H 04/23/18 16:05: Glucometer 200H 04/23/18 20:16: Glucometer 137H 04/24/18 03:33: Glucometer 61L 04/24/18 03:58: Glucometer 55*L 04/24/18 04:15: Glucometer 65L 04/24/18 05:31: Glucometer 117H 04/24/18 11:14: Glucometer 166H 04/24/18 16:25: Glucometer 260H 04/24/18 20:40: Glucometer 267H 04/25/18 05:09: Glucometer 207H Assessment/Plan Assessment and Plan 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 Co-Morbidities that are continuing to impact the rehab process: (include details ) EMMY JULIEN MD Apr 25, 2018 07:26
[2018-04-25] MEDS: APIXABAN 5 MG (ELIQUIS) TABLET PO SCH ×2 (10:05→20:47)
[2018-04-25] MEDS: FAMOTIDINE 20 MG (PEPCID) TABLET PO SCH ×2 (10:05→20:47)
[2018-04-25] MEDS: CLOPIDOGREL 75 MG (PLAVIX) TABLET PO SCH (10:05)
[2018-04-25] MEDS: SENNA W/DOCUSATE (SENOKOT S) TABLET PO SCH ×2 (10:06→20:48)
[2018-04-25] MEDS: LORATADINE (CLARITIN) 10 MG TAB PO SCH (10:06)
[2018-04-25] MEDS: AMIODARONE 200 MG (CORDARONE) TAB PO SCH ×2 (10:06→20:47)
[2018-04-25] MEDS: FLUTICASONE NASAL SPRAY (FLONASE) 16 GM BTL NS SCH (10:06)
[2018-04-25] MEDS: inSUlin DETERMIR 1 UNIT/0.01 ML (LEVEMIR) CHARGE PER UNIT SQ SCH ×2 (10:07→20:47)
[2018-04-25 10:41] VITALS: BP 112/69
--- NOTE | 2018-04-25 10:44 | Physical Therapy Daily Note ---
PT Daily Note-Current Subjective Pt. in bed, states he did not sleep well last night and had some chest tightness , " yes I told my nurse" Pain Numeric Pain Scale: 0-No Pain Mental Status Patient Orientation: Person, Place, Situation Transfers Functional [place] Measure 0=Not Assessed/NA 4=Minimal Assistance 1=Total Assistance 5=Supervision or Setup 2=Maximal Assistance 6=Modified [place] 3=Moderate Assistance 7=Complete IndependenceIRFPAI Quality Coding Scale 6 Independent with activity with or without an assistive device 5 Patient requires set up or clean up by helper. Patient completes activity by themselves 4 Supervision or touching assist (CGA). [place] provide cues , steadying assist 3 The helper provides less than half the effort to complete the activity 2 The helper provides more than half the effort to complete the activity 1 Dependent. The helper does all the effort to complete an activity 7 Patient refused to complete or attempt activity 9 The patient did not perform the activity before the current illness or injury 88 Not attempted due to Medical conditions or safety concerns Transfers (B, C, W/C) (FIM): 3 Scootin Rollin Supine to/from Sit: 3 Sit to/from Stand: 3 Bed to/from Chair: 3 listing heavy to left, mod assist for all. Weight Bearing Right Lower Extremity: Right Weight Bearing/Tolerated Left Lower Extremity: Left Weight Bearing/Tolerated Gait Training Does the Patient Walk?: Yes Gait (FIM): 1 Distance (FIM): 1=up to 49 ft (10ft, 4ft) Gait Level of Assist: 2 Gait Persons Needed: 2 Gait Assistive Device: Walker Rodolfo unstable in Gall[place] LEs, lists heavy to left, much difficulty in stance for weight shift left to right, HR increased to 129 BPM, dyspnea noted, O2 sats 92% on room air Exercises Seated Therapy Exercises: Long arc quads, Hip flexion Seated Reps: 12 Treatments up in recliner after with pillows for positioning , LEs elevated. Nurse present to assess Assessment Current Status: Fair Progress poor tolerance for Rx. TRFs and stance and weight shift only with increased HR and mild dyspnea, audible crackles lung sounds PT Short Term Goals Short Term Goals Time Frame: Apr 02, 2018 Transfers (B,C,W/C) (FIM): 3 Gait (FIM): 1 Gait Distance Comment: 20' Gait Level of Assist: 2 Gait Assistive Device: Cane Large Base Quad Wheelchair Distance: 100' PT Group Home Goals Group Home Goals PT Community Service Worker Goals Time Frame: Apr 16, 2018 Transfers (B,C,W/C) (FIM): 4 Sit to Lying (QC): 3 Lying-Sitting on Side/Bed(QC): 3 Sit to Stand (QC): 3 Rollin Roll Left to Right (QC): 3 Chair/Zjp-lj-Fduge Xfer(QC): 3 Car Transfer (QC): 3 Gait (FIM): 2 Distance: 50' Walk 10 feet (QC): 3 Walk 10ft-Uneven Surface(QC): 3 Walk 50ft with 2 Turns (QC): 3 Gait Level of Assist: 4 Gait Assistive Device: Cane Large Base Quad Wheelchair (FIM): 6 Distance: 200' Wheel 50 feet with 2 turns (QC: 6 PT Plan Treatment/Plan Treatment Plan: Continue Plan of Care Treatment Plan: Bed Mobility, Concurrent Therapy, Education, Functional Activity Sukhdeep, Functional Strength, Group Therapy, Gait, Safety, Therapeutic Exercise, Transfers Treatment Duration: Apr 27, 2018 Frequency: At least 5 of 7 days/Wk (IRF) Estimated Hrs Per Day: 1.5 hours per day Patient and/or Family Agrees t: Yes Safety Risks/Education Patient Education: Gait Training, Transfer Techniques, Disease Process, Safety Issues Teaching Recipient: Patient Teaching Methods: Demonstration, Discussion Response to Teaching: Verbalize Understanding, Return Demonstration, Reinforcement Needed Time/GCodes Time In: 1005 Time Out: 1035 Total Billed Treatment Time: 30 Total Billed Treatment 1,FA30m G Codes Necessary: SARAH Long SLEEPING CAR SERVICE ATTENDANT Apr 25, 2018 10:43
[2018-04-25 16:45] VITALS: BP 132/73
[2018-04-25 18:06] VITALS: BP 147/70
[2018-04-25] MEDS: traZODone 50 MG (DESYREL) TAB PO SCH (20:47)
[2018-04-25] MEDS: POLYETHYLENE GLYCOL 17 GM (MIRALAX) PACK PO SCH (20:48)
[2018-04-25] MEDS: ATORVASTATIN 40 MG (LIPITOR) TABLET PO SCH (20:48)
--- NOTE | 2018-04-25 21:02 | Diagnostic Imaging Report ---
EXAMINATION: CHEST (PA AND LATERAL) CLINICAL INDICATION: 73-year-old male, cough. Oxygen desaturations COMPARISON: March 18, 2018. FINDINGS: There are median sternotomy wires. Heart size appears grossly unchanged. There is no identified pneumothorax. There is no large pleural effusion. There are probable small pleural effusions There is multifocal airspace consolidation in the bilateral lungs which is new since comparison exam. IMPRESSION: 1. Nonspecific multifocal airspace consolidation in the bilateral lungs which is new since comparison exam. 2. Probable small pleural effusions. Dictated by: Dictated on workstation # [id number]
[2018-04-26] MEDS: LACTOBACILLUS ACIDOPHILUS (PROBIOTIC) CAPSULE PO SCH ×3 (05:44→15:46)
[2018-04-26 06:00] VITALS: BP 126/68
[2018-04-26] MEDS: ACETAMINOPHEN 325 MG TABLET PO PRN ×3 (06:54→18:30)
[2018-04-26] MEDS: inSUlin ASPART (NovoLOG) 1 UNIT/0.01 ML (CHARGE PER UNIT) SC SCH ×4 (06:59→21:15)
[2018-04-26 08:00] VITALS: BP 100/62
[2018-04-26] MEDS: LORATADINE (CLARITIN) 10 MG TAB PO SCH (08:57)
[2018-04-26] MEDS: FLUTICASONE NASAL SPRAY (FLONASE) 16 GM BTL NS SCH (08:57)
[2018-04-26] MEDS: AMIODARONE 200 MG (CORDARONE) TAB PO SCH ×2 (08:57→21:15)
[2018-04-26] MEDS: FAMOTIDINE 20 MG (PEPCID) TABLET PO SCH ×2 (08:57→21:15)
[2018-04-26] MEDS: CLOPIDOGREL 75 MG (PLAVIX) TABLET PO SCH (08:57)
[2018-04-26] MEDS: APIXABAN 5 MG (ELIQUIS) TABLET PO SCH ×2 (08:57→21:15)
[2018-04-26] MEDS: SENNA W/DOCUSATE (SENOKOT S) TABLET PO SCH ×2 (08:58→21:59)
[2018-04-26] MEDS: inSUlin DETERMIR 1 UNIT/0.01 ML (LEVEMIR) CHARGE PER UNIT SQ SCH ×2 (08:58→21:16)
[2018-04-26 09:02] VITALS: BP 100/56
[2018-04-26 09:17] VITALS: BP 111/56
[2018-04-26] MEDS: AZITHROMYCIN 250 MG TAB (ZITHROMAX) PO SCH (11:54)
[2018-04-26 12:00] VITALS: BP 114/66
[2018-04-26] MEDS: cefTRIAXone FOR IV USE 1,000 MG in NS (IVPB) 50 ML IV SCH (13:22)
[2018-04-26 17:57] VITALS: BP 116/71
[2018-04-26] MEDS: ATORVASTATIN 40 MG (LIPITOR) TABLET PO SCH (21:15)
[2018-04-26] MEDS: traZODone 50 MG (DESYREL) TAB PO SCH (21:15)
[2018-04-26] MEDS: POLYETHYLENE GLYCOL 17 GM (MIRALAX) PACK PO SCH (21:59)
[2018-04-27] MEDS: ACETAMINOPHEN 325 MG TABLET PO PRN (00:30)
[2018-04-27 04:14] LABS: HEMOGLOBIN 9.8 G/DL (13.3-17.7); MEAN PLATELET VOLUME 9.5 FL (7.4-10.4); RED BLOOD COUNT 3.52 10^6/uL (4.35-5.85); RED CELL DISTRIBUTION WIDTH 17.7 % (10.0-14.5); WHITE BLOOD COUNT 14.7 10^3/uL (4.3-11.0)
[2018-04-27 04:30] LABS: CALCIUM 8.3 MG/DL (8.5-10.1); CREATININE SERUM 1.19 MG/DL (0.60-1.30); POTASSIUM 4.4 MMOL/L (3.6-5.0)
[2018-04-27] MEDS: inSUlin ASPART (NovoLOG) 1 UNIT/0.01 ML (CHARGE PER UNIT) SC SCH ×4 (04:35→20:36)
[2018-04-27 05:44] VITALS: BP 147/73
[2018-04-27] MEDS: LACTOBACILLUS ACIDOPHILUS (PROBIOTIC) CAPSULE PO SCH ×3 (06:37→16:48)
[2018-04-27] MEDS: CLOPIDOGREL 75 MG (PLAVIX) TABLET PO SCH (08:33)
[2018-04-27] MEDS: APIXABAN 5 MG (ELIQUIS) TABLET PO SCH ×2 (08:33→20:38)
[2018-04-27] MEDS: FAMOTIDINE 20 MG (PEPCID) TABLET PO SCH ×2 (08:33→20:38)
[2018-04-27] MEDS: AMIODARONE 200 MG (CORDARONE) TAB PO SCH (08:33)
[2018-04-27] MEDS: FLUTICASONE NASAL SPRAY (FLONASE) 16 GM BTL NS SCH (08:34)
[2018-04-27] MEDS: LORATADINE (CLARITIN) 10 MG TAB PO SCH (08:34)
[2018-04-27] MEDS: AZITHROMYCIN 250 MG TAB (ZITHROMAX) PO SCH (08:34)
[2018-04-27] MEDS: SENNA W/DOCUSATE (SENOKOT S) TABLET PO SCH ×2 (08:34→20:38)
[2018-04-27] MEDS: inSUlin DETERMIR 1 UNIT/0.01 ML (LEVEMIR) CHARGE PER UNIT SQ SCH ×2 (08:35→20:39)
--- NOTE | 2018-04-27 08:53 | Progress Note-Hospitalist ---
Subjective HPI/CC On Admission Date Seen by Provider: Apr 27, 2018 Time Seen by Provider: 08:00 Mr. Guerin is a frail 73-year-old white male who developed abrupt onset of left upper quadrant pain on 18 March. 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 He was discharged with pain medication. On [address] scanning of the chest with contrast for evaluation of subcarinal fullness. It was felt to represent adenopathy a little more prominent than a previous CT scan of the chest in 2012 per radiologist report. No pulmonary abnormalities were reported. He also had significant cholelithiasis without symptoms to suggest cholecystitis. Sometime shortly thereafter he developed left-sided weakness and was transferred to [place] where he was noted to have a right sided CVA without evidence for significant extracranial vascular disease. He ultimately underwent cardiac catheterization as well which reportedly revealed mild hypokinesis with estimated ejection fraction of 40 percent he did have 3 patent grafts he had some disease in the PDA distal to his RCA graft and also had some disease in the obtuse marginal system that was not bypassed. Medical management was opted for however and the patient did not undergo any endovascular-based therapy. He is transferred back to our rehabilitation unit to continue redilatation for deficits that include left-sided hemiparesis as well as dysarthria and mild dysphasia. He reports that he has been swallowing without coughing on thickened liquids and solids. He denies abdominal pain but does note some sores in his mouth. He states that while he still has significant weakness he has had improvement in movement of the left upper extremity and left lower extremity. The left lower extremity is been affected to a lesser degree than left upper extremity. Past medical history seen for long-standing poorly controlled insulin requiring type II diabetes due to poor compliance with bolus therapy for many years. 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 For this reason he had not been on anticoagulant therapy for known underlying persistent atrial fibrillation. He had no previous known history of thromboembolic disease. He has been placed on eliquis and reports no change in vision and also denies ocular pain. He also was diagnosed with urinary tract infection and discharged on Levaquin to our facility. He also has known significant peripheral neuropathy and pressure ulceration with past osteomyelitis of the great toe requiring partial amputation on the left. In the past she's had multiple foot ulcers but is been some time since he last required treatment for diabetic-related foot ulceration. Objective Exam Vital Signs Vital Signs Date Time Temp Pulse Resp B/P (MAP) Pulse Ox O2 Delivery O2 Flow Rate FiO2 05/01/18 09:31 20 05/01/18 09:00 Nasal Cannula 3.00 05/01/18 05:16 99.0 72 122/67 (85) 95 04/30/18 16:56 28 Capillary Refill : General Appearance: No Apparent Distress, Chronically ill Respiratory: Chest Non Tender, Lungs Clear, Normal Breath Sounds, No Accessory Muscle Use, No Respiratory Distress Cardiovascular: No Gallop, No JVD, Systolic Murmur (3/6 unchanged), Irregularly Irregular Gastrointestinal: Normal Bowel Sounds, No Organomegaly, No Pulsatile Mass, Non Tender, Soft Results/Procedures Lab Patient resulted labs reviewed. Assessment/Plan Assessment and Plan Assess & Plan/Chief Complaint 1. 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 Considering splenic infarct likely embolic as well we did discuss the risk of anticoagulant therapy and recurrent hemorrhage versus benefits. In my estimation benefits significantly outweigh risk as she would be highly likely to continue to have embolic symptoms. The downside would be retinal hemorrhages would likely lead to blindness in the affected eye. Patient agrees with continuing anticoagulant therapy.No change in vision reported. Barium base swallowing study does reveal evidence for small volume aspiration and vallecular pooling. Patient has no evidence for aspiration pneumonitis at this time continuing to work with speech therapy. 2. Known significant coronary artery disease with mild LV systolic dysfunction continue baby aspirin daily. 3. Type II diabetes mellitus insulin requiring erratic control due to erratic by mouth intake will decrease Levemir to 10 unitsin the morning and 5 units at night. If his appetite increases however his blood sugar levels will go up and will likely be increasing insulin continue to monitor. 4. Thrush resolved will DC nystatin.. 5. Chronic atrial fibrillation currently rate controlled. 6. Reported urinary tract infection with resolution on repeat UA.. 7. Carinal fullness on CT scan possible adenopathy considering the patient's frailty and multiple medical symptoms we will see about obtaining PET scan as an outpatient. 8. Depression ndogenous as well as reactive likely contributing to poor appetite will increase citalopram to 40 mg at at bedtime and see if this does not help out insomnia as wellwhich is likely due to depression. .9. Known chronic systolic heart failure secondary to ischemic cardiomyopathy discussed the fact that thus far as blood pressures have not been too low and as long she is not having significant orthostatic hypotension he needed to stay on metoprolol and losartan for heart failure prevention. 10. Recent onset fever patchy airspace disease noted on chest x-ray low-grade fever but without the usual classic symptoms for bacterial pneumonia. He also lacks typical symptoms of and he seemed viral URI with no other reports of illness going on from a respiratory standpoint on acute rehabilitation. At this point in my mind the benefits of amiodarone are outweighed by the risk and concerns for pulmonary toxicity will hold the medication for now and discuss further with Dr. House. Agree with antibiotics and we'll need to hold discharge. He does not appear to be in acute distress at this point would favor continued physical therapy as tolerated and remaining on acute rehabilitation unit although if there is any worsening in symptoms certainly agree with transfer to acute care. Clinical Quality Measures DVT/VTE Risk/Contraindication: Risk Factor Score Per Nursin RFS Level Per Nursing on Admit: 4+=Very High BEVERLY FERNANDES MD Apr 27, 2018 08:53
--- NOTE | 2018-04-27 09:03 | Physical Therapy Daily Note ---
PT Daily Note-Current Subjective Pt. states he is discouraged because he thinks he has pneumonia and has lost all the movement in his left leg and feels its like he has stroked again. Dr Burleson present and shares with pt that he has pneumonia and will need to be treated with ABX. Pt. agrees to attempt Rx Pain Numeric Pain Scale: 0-No Pain Mental Status Patient Orientation: Person, Place, Time, Situation Attachments: Oxygen (2.5 L) Transfers Functional [place] Measure 0=Not Assessed/NA 4=Minimal Assistance 1=Total Assistance 5=Supervision or Setup 2=Maximal Assistance 6=Modified [place] 3=Moderate Assistance 7=Complete IndependenceIRFPAI Quality Coding Scale 6 Independent with activity with or without an assistive device 5 Patient requires set up or clean up by helper. Patient completes activity by themselves 4 Supervision or touching assist (CGA). [place] provide cues , steadying assist 3 The helper provides less than half the effort to complete the activity 2 The helper provides more than half the effort to complete the activity 1 Dependent. The helper does all the effort to complete an activity 7 Patient refused to complete or attempt activity 9 The patient did not perform the activity before the current illness or injury 88 Not attempted due to Medical conditions or safety concerns Transfers (B, C, W/C) (FIM): 2 Scootin Rollin Supine to/from Sit: 2 Sit to/from Stand: 2 1 max 2 mod for TRFs , cushioned seating surface and bed elevated assists sit to stand to a point. sit to stands at parallel bars x 4 with attempts at wt shift etc. again requires max assist Weight Bearing Right Lower Extremity: Right Weight Bearing/Tolerated Left Lower Extremity: Left Weight Bearing/Tolerated Gait Training pt. unable to take even 2-3 steps without max assist. Exercises Supine Ex: Bridging, Ankle pumps, Quad Set, Rolling, Glut sets, Heel Slides, Short Arc Quads, Scooting, Straight leg raise (assit), Hip abd/add Supine Reps: 20 Seated Therapy Exercises: Sit to stand, Long arc quads, Hip flexion Seated Reps: 15 Treatments bridging to [place] pants, SPTs, toileted on BSC with assist of 2. Assessment Current Status: Good Progress, Fair Progress pneumonia limits strength and endurance etc PT Short Term Goals Short Term Goals Time Frame: Apr 02, 2018 Transfers (B,C,W/C) (FIM): 3 Gait (FIM): 1 Gait Distance Comment: 20' Gait Level of Assist: 2 Gait Assistive Device: Cane Large Base Quad Wheelchair Distance: 100' PT Bean Picker Machine Operator Goals Skilled Nursing Goals PT Bean Picker Machine Operator Goals Time Frame: Apr 16, 2018 Transfers (B,C,W/C) (FIM): 4 Sit to Lying (QC): 3 Lying-Sitting on Side/Bed(QC): 3 Sit to Stand (QC): 3 Rollin Roll Left to Right (QC): 3 Chair/Jow-jq-Rtcmc Xfer(QC): 3 Car Transfer (QC): 3 Gait (FIM): 2 Distance: 50' Walk 10 feet (QC): 3 Walk 10ft-Uneven Surface(QC): 3 Walk 50ft with 2 Turns (QC): 3 Gait Level of Assist: 4 Gait Assistive Device: Cane Large Base Quad Wheelchair (FIM): 6 Distance: 200' Wheel 50 feet with 2 turns (QC: 6 PT Plan Treatment/Plan Treatment Plan: Continue Plan of Care Treatment Plan: Bed Mobility, Concurrent Therapy, Education, Functional Activity Sukhdeep, Functional Strength, Group Therapy, Gait, Safety, Therapeutic Exercise, Transfers Treatment Duration: Apr 27, 2018 Frequency: At least 5 of 7 days/Wk (IRF) Estimated Hrs Per Day: 1.5 hours per day Patient and/or Family Agrees t: Yes Safety Risks/Education Patient Education: Transfer Techniques, Correct Positioning, Disease Process, Safety Issues Teaching Recipient: Patient Teaching Methods: Demonstration, Discussion Response to Teaching: Verbalize Understanding, Return Demonstration, Reinforcement Needed discussed that sitting up and movement is best for pnuemonia as well as deep breathing Time/GCodes Time In: 800 Time Out: 900 Total Billed Treatment Time: 60 Total Billed Treatment 1,EX30m,FA30m G Codes Necessary: SARAH Long RADIATION CONTROL WORKER Apr 27, 2018 09:03
[2018-04-27] MEDS: cefTRIAXone FOR IV USE 1,000 MG in NS (IVPB) 50 ML IV SCH (09:46)
--- NOTE | 2018-04-27 12:23 | Occupational Ther Daily Note ---
OT Current Status-Daily Note Subjective Pt sleeping in bed. Pt required saying name multiple time to wake. Pt agrees to therapy. Mental Status/Objective Patient Orientation: Person, Place, Time, Situation Functional [place] Measure 0=Not Assessed/NA 4=Minimal Assistance 1=Total Assistance 5=Supervision or Setup 2=Maximal Assistance 6=Modified [place] 3=Moderate Assistance 7=Complete [place] Attachments: IV, Oxygen ADL-Treatment Mod A supine to sitting EOB then assist to sit EOB, leaning backward. Pt transferred with assist x2 throughout therapy. Pt able to complete bathing using shower bench with cutout, hand held shower. Assist needed to dry feet and buttocks. Pt able to sequence donning shirt, assist needed to manipulate. Assist to don/doff lower body clothing. Pt incontinent of bowel, assist to cleanse self and manipulate clothing. Mod A sitting EOB to supine. Pt declined grooming. Pt is demonstrating increased affect and conversation as therapy continued. After therapy, pt lying in bed with call light/phone in reach. All needs met in room. Functional [place] Measure 0=Not Assessed/NA 4=Minimal Assistance 1=Total Assistance 5=Supervision or Setup 2=Maximal Assistance 6=Modified [place] 3=Moderate Assistance 7=Complete IndependenceIRFPAI Quality Coding Scale 6 Independent with activity with or without an assistive device 5 Patient requires set up or clean up by helper. Patient completes activity by themselves 4 Supervision or touching assist (CGA). [place] provide cues , steadying assist 3 The helper provides less than half the effort to complete the activity 2 The helper provides more than half the effort to complete the activity 1 Dependent. The helper does all the effort to complete an activity 7 Patient refused to complete or attempt activity 9 The patient did not perform the activity before the current illness or injury 88 Not attempted due to Medical conditions or safety concerns Bathing (FIM): 3 Shower/Bathe Self (QC): 3 Upper Body (FIM): 3 Upper Body Dressing (QC): 3 Lower Body Dressing (FIM): 2 Lower Body Dressing (QC): 2 Toileting (FIM): 2 Toileting Hygiene (QC): 2 Transfers (B, C, W/C) (FIM): 1 Toilet/Commode Transfer (FIM): 1 Toilet Transfer (QC): 1 Shower Transfer(FIM): 1 OT Short Term Goals Short Term Goals Time Frame: Apr 09, 2018 Eating(FIM): 6 Grooming(FIM): 5 Bathing(FIM): 4 Upper Body Dressing(FIM): 4 Lower Body Dressing(FIM): 3 Toileting(FIM): 4 Transfers (B,C,W/C) (FIM): 3 Toilet/Commode Transfer(FIM): 4 Shower Transfer(FIM): 4 Additional Short Term Goals: 1-Demonstrate ADL Tasks, 2-Verbalize Understanding , 3-ImproveStrength/Sukhdeep 1=Demonstrate adherence to instructed precautions during ADL tasks. 2=Patient will verbalize/demonstrate understanding of assistive devices/ modifications for ADL. 3=Patient will improve strength/tolerance for activity to enable patient to perform ADL's. OT Physical Geographer Goals Senior Care Goals Time Frame: Apr 23, 2018 Eating (FIM): 6 (continue goal) Eating (QC): 6 Groomin (Met at wheelchair level.) Oral Hygiene (QC): 6 Bathing(FIM): 5 (continue goal) Shower/Bathe Self (QC): 5 Upper Body Dressing(FIM): 5 (continue goal) Upper Body Dressing (QC): 5 Lower Body Dressing(FIM): 5 (continue goal) Lower Body Dressing (QC): 5 On/Off Footwear (QC): 5 Toileting(FIM): 6 (continue goal) Toileting Hygiene (QC): 6 Transfers (B,C,W/C) (FIM): 6 (continue goal) Toilet/Commode Transfer(FIM): 6 (continue gol) Toilet/Commode Transfer (QC): 6 Shower Transfer(FIM): 5 (continue goal) Additional Goals: 1-Demonstrate ADL Tasks, 2-Verbalize Understanding, 3- ImproveStrength/Sukhdeep 1=Demonstrate adherence to instructed precautions during ADL tasks. 2=Patient will verbalize/demonstrate understanding of assistive devices/ modifications for ADL. 3=Patient will improve strength/tolerance for activity to enable patient to perform ADL's. OT Education/Plan Discharge Recommendations Plan/Recommendations: Continue POC Treatment Plan/Plan of Care Patient would benefit from OT for education, treatment and training to promote independence in ADL's, mobility, safety and/or upper extremity function for ADL' s. Plan of Care: ADL Retraining, Caregiver Training, Functional Mobility, Group Exercise/Act as Ind, UE Funct Exercise/Act Treatment Duration: Apr 23, 2018 Frequency: At least 5 of 7 days/Wk (IRF) Estimated Hrs Per Day: 1.5 hours per day Agreement: Yes Rehab Potential: Fair Time/GCodes Start Time: 11:00 Stop Time: 12:00 Total Time Billed (hr/min): 60 Billed Treatment Time 1 visit-ADL 4 (60 min) JIMMY DHILLON Apr 27, 2018 12:23
--- NOTE | 2018-04-27 13:34 | Physical Therapy Daily Note ---
PT Daily Note-Current Subjective Pt. in bed, feels better this afternoon. Agrees to exercise, sitting balance and TRF Pain Numeric Pain Scale: 0-No Pain Mental Status Patient Orientation: Person, Place, Time, Situation Attachments: Oxygen Transfers Functional [place] Measure 0=Not Assessed/NA 4=Minimal Assistance 1=Total Assistance 5=Supervision or Setup 2=Maximal Assistance 6=Modified [place] 3=Moderate Assistance 7=Complete IndependenceIRFPAI Quality Coding Scale 6 Independent with activity with or without an assistive device 5 Patient requires set up or clean up by helper. Patient completes activity by themselves 4 Supervision or touching assist (CGA). [place] provide cues , steadying assist 3 The helper provides less than half the effort to complete the activity 2 The helper provides more than half the effort to complete the activity 1 Dependent. The helper does all the effort to complete an activity 7 Patient refused to complete or attempt activity 9 The patient did not perform the activity before the current illness or injury 88 Not attempted due to Medical conditions or safety concerns rolling mod assist to right, CGA to left, sup to side to sit mod assist. SPT bed to w/c mod assist toward right Weight Bearing Right Lower Extremity: Right Weight Bearing/Tolerated Left Lower Extremity: Left Weight Bearing/Tolerated Exercises Supine Ex: Bridging, Ankle pumps, Rolling, Heel Slides, Short Arc Quads, Straight leg raise, Hip abd/add Supine Reps: 20 Seated Therapy Exercises: Ankle pumps, Sit to stand, Long arc quads, Hip flexion Seated Reps: 10 Assessment Current Status: Good Progress improved function this PM PT Short Term Goals Short Term Goals Time Frame: Apr 02, 2018 Transfers (B,C,W/C) (FIM): 3 Gait (FIM): 1 Gait Distance Comment: 20' Gait Level of Assist: 2 Gait Assistive Device: Cane Large Base Quad Wheelchair Distance: 100' PT Mcfp Goals Mimeographer Goals PT Mcfp Goals Time Frame: Apr 16, 2018 Transfers (B,C,W/C) (FIM): 4 Sit to Lying (QC): 3 Lying-Sitting on Side/Bed(QC): 3 Sit to Stand (QC): 3 Rollin Roll Left to Right (QC): 3 Chair/Itw-ou-Obgws Xfer(QC): 3 Car Transfer (QC): 3 Gait (FIM): 2 Distance: 50' Walk 10 feet (QC): 3 Walk 10ft-Uneven Surface(QC): 3 Walk 50ft with 2 Turns (QC): 3 Gait Level of Assist: 4 Gait Assistive Device: Cane Large Base Quad Wheelchair (FIM): 6 Distance: 200' Wheel 50 feet with 2 turns (QC: 6 PT Plan Treatment/Plan Treatment Plan: Continue Plan of Care Treatment Plan: Bed Mobility, Concurrent Therapy, Education, Functional Activity Sukhdeep, Functional Strength, Group Therapy, Gait, Safety, Therapeutic Exercise, Transfers Treatment Duration: Apr 27, 2018 Frequency: At least 5 of 7 days/Wk (IRF) Estimated Hrs Per Day: 1.5 hours per day Patient and/or Family Agrees t: Yes Safety Risks/Education Patient Education: Transfer Techniques, Correct Positioning, Disease Process, Safety Issues Teaching Recipient: Patient Teaching Methods: Demonstration, Discussion Response to Teaching: Verbalize Understanding, Return Demonstration, Reinforcement Needed Time/GCodes Time In: 1300 Time Out: 1330 Total Billed Treatment Time: 30 Total Billed Treatment 1,EX10m,FA20m G Codes Necessary: SARAH Long PTA Apr 27, 2018 13:34
--- NOTE | 2018-04-27 14:52 | Occupational Ther Daily Note ---
OT Current Status-Daily Note Subjective Pt alert, sitting up in w/c. Pt agrees to therapy. No c/o pain at this time. Pt did fatigue by the end of treatment. Mental Status/Objective Patient Orientation: Person, Place, Time, Situation Functional [place] Measure 0=Not Assessed/NA 4=Minimal Assistance 1=Total Assistance 5=Supervision or Setup 2=Maximal Assistance 6=Modified [place] 3=Moderate Assistance 7=Complete [place] Attachments: IV, Oxygen ADL-Treatment Functional [place] Measure 0=Not Assessed/NA 4=Minimal Assistance 1=Total Assistance 5=Supervision or Setup 2=Maximal Assistance 6=Modified [place] 3=Moderate Assistance 7=Complete IndependenceIRFPAI Quality Coding Scale 6 Independent with activity with or without an assistive device 5 Patient requires set up or clean up by helper. Patient completes activity by themselves 4 Supervision or touching assist (CGA). [place] provide cues , steadying assist 3 The helper provides less than half the effort to complete the activity 2 The helper provides more than half the effort to complete the activity 1 Dependent. The helper does all the effort to complete an activity 7 Patient refused to complete or attempt activity 9 The patient did not perform the activity before the current illness or injury 88 Not attempted due to Medical conditions or safety concerns Other Treatment Pt given red theraband and exercises handout. Pt was able to demonstrate understanding of exercises with physical cues to decrease compensatory movements. 1 set 10x's each exercise. Pt demonstrated minimal movement with scapula, increased tightness noted. Self ROM reviewed and pt able to complete with verbal/physical cues for arm placements. After therapy, pt chose to stay sitting up in w/c. Call light in reach and in room. All needs met in room. Education OT Patient Education: Exercise program, Home exercise program Teaching Recipient: Patient, Family Teaching Methods: Demonstration, Handout, Discussion Response to Teaching: Verbalize Understanding, Return Demonstration, Reinforcement Needed OT Short Term Goals Short Term Goals Time Frame: Apr 09, 2018 Eating(FIM): 6 Grooming(FIM): 5 Bathing(FIM): 4 Upper Body Dressing(FIM): 4 Lower Body Dressing(FIM): 3 Toileting(FIM): 4 Transfers (B,C,W/C) (FIM): 3 Toilet/Commode Transfer(FIM): 4 Shower Transfer(FIM): 4 Additional Short Term Goals: 1-Demonstrate ADL Tasks, 2-Verbalize Understanding , 3-ImproveStrength/Sukhdeep 1=Demonstrate adherence to instructed precautions during ADL tasks. 2=Patient will verbalize/demonstrate understanding of assistive devices/ modifications for ADL. 3=Patient will improve strength/tolerance for activity to enable patient to perform ADL's. OT Drawing Tracer Goals Residential Goals Time Frame: Apr 23, 2018 Eating (FIM): 6 (continue goal) Eating (QC): 6 Groomin (Met at wheelchair level.) Oral Hygiene (QC): 6 Bathing(FIM): 5 (continue goal) Shower/Bathe Self (QC): 5 Upper Body Dressing(FIM): 5 (continue goal) Upper Body Dressing (QC): 5 Lower Body Dressing(FIM): 5 (continue goal) Lower Body Dressing (QC): 5 On/Off Footwear (QC): 5 Toileting(FIM): 6 (continue goal) Toileting Hygiene (QC): 6 Transfers (B,C,W/C) (FIM): 6 (continue goal) Toilet/Commode Transfer(FIM): 6 (continue gol) Toilet/Commode Transfer (QC): 6 Shower Transfer(FIM): 5 (continue goal) Additional Goals: 1-Demonstrate ADL Tasks, 2-Verbalize Understanding, 3- ImproveStrength/Sukhdeep 1=Demonstrate adherence to instructed precautions during ADL tasks. 2=Patient will verbalize/demonstrate understanding of assistive devices/ modifications for ADL. 3=Patient will improve strength/tolerance for activity to enable patient to perform ADL's. OT Education/Plan Discharge Recommendations Plan/Recommendations: Continue POC Treatment Plan/Plan of Care Patient would benefit from OT for education, treatment and training to promote independence in ADL's, mobility, safety and/or upper extremity function for ADL' s. Plan of Care: ADL Retraining, Caregiver Training, Functional Mobility, Group Exercise/Act as Ind, UE Funct Exercise/Act Treatment Duration: Apr 23, 2018 Frequency: At least 5 of 7 days/Wk (IRF) Estimated Hrs Per Day: 1.5 hours per day Agreement: Yes Rehab Potential: Fair Time/GCodes Start Time: 14:00 Stop Time: 14:30 Total Time Billed (hr/min): 30 Billed Treatment Time 1 visit-NM 2 (30 min) JIMMY DHILLON Apr 27, 2018 14:52
--- NOTE | 2018-04-27 15:23 | Therapy Team Discharge Summary ---
Therapy Discharge Summary Discharge Recommendations Date of Discharge Therapy D/C Recommendations: Home w/ Family Support, Occupational Therapy Home Care, Scheduled Assistance, Other, See Comments (Skilled ST at the SNF.) Occupational Therapy Decreased Activ Tolerance, Decreased UE Strength, Dependent Transfers, Impaired Bed Mobility, Impaired Coordination, Impaired Funct Balance, Impaired I ADL's, Impaired Self-Care Skills, Restricted Funct UE ROM Speech-Language Pathology Pt admitted to ARU due to a CVA. Pt initially presented with dysarthria and dysphagia. Pt was provided with dysphagia exercises and at dc was independent with them. Pt was upgraded to a dysphagia 3 diet (regular) but still on nectar thick liquids. Ice chips were provided by CREDIT PROCESSOR and rare instances of possible aspiration were observed. Pt was to be dc'd on Apr 27 to a SNF. Pt developed pneumonia and was not dc'd. Pt has achieved one goal of being independent with his exercises. Pt is dc'd from skilled ST from the ARU. Continued skilled ST indicated for when pt goes to SNF to continue working on upgrading his liquids. PT Half-Way Goals Mortgage Processing Manager Goals PT Mortgage Processing Manager Goals Time Frame: Apr 16, 2018 Transfers (B,C,W/C) (FIM): 4 Roll Left to Right (QC): 3 Sit to Lying (QC): 3 Lying-Sitting on Side/Bed(QC): 3 Sit to Stand (QC): 3 Chair/Cgj-vx-Hafqz Xfer(QC): 3 Car Transfer (QC): 3 Gait (FIM): 2 Distance: 50' Walk 10 feet (QC): 3 Walk 10ft-Uneven Surface(QC): 3 Walk 50ft with 2 Turns (QC): 3 Gait Level of Assist: 4 Gait Assistive Device: Cane Large Base Quad Wheelchair (FIM): 6 Distance: 200' Wheel 50 feet with 2 turns (QC: 6 OT Half-Way Goals Mortgage Processing Manager Goals Time Frame: Apr 23, 2018 Eating (FIM): 6 (continue goal) Eating (QC): 6 Oral Hygiene (QC): 6 Grooming(FIM): 6 (Met at wheelchair level.) Bathing(FIM): 5 (continue goal) Shower/Bathe Self (QC): 5 Upper Body Dressing(FIM): 5 (continue goal) Upper Body Dressing (QC): 5 Lower Body Dressing(FIM): 5 (continue goal) Lower Body Dressing (QC): 5 On/Off Footwear (QC): 5 Toileting(FIM): 6 (continue goal) Toileting Hygiene (QC): 6 Transfers (B,C,W/C) (FIM): 6 (continue goal) Toilet/Commode Transfer(FIM): 6 (continue gol) Toilet/Commode Transfer (QC): 6 Shower Transfer(FIM): 5 (continue goal) Additional Goals: 1-Demonstrate ADL Tasks, 2-Verbalize Understanding, 3- ImproveStrength/Sukhdeep 1=Demonstrate adherence to instructed precautions during ADL tasks. 2=Patient will verbalize/demonstrate understanding of assistive devices/ modifications for ADL. 3=Patient will improve strength/tolerance for activity to enable patient to perform ADL's. Speech Half-Way Goals Mortgage Processing Manager Goals This is effective 04/16/2018: 1. Pt will tolerate regular diet with thin liquids with no s/s of aspiration. Goal not met as pt has been very fatigued recently and swallow musculature is weak as well and will not prevent aspiration of thin liquids. Time Frame: 2 weeks MAGALY GARAY Apr 27, 2018 15:23
[2018-04-27 16:48] VITALS: BP 135/84
[2018-04-27] MEDS: ATORVASTATIN 40 MG (LIPITOR) TABLET PO SCH (20:38)
[2018-04-27] MEDS: traZODone 50 MG (DESYREL) TAB PO SCH (20:38)
[2018-04-27] MEDS: POLYETHYLENE GLYCOL 17 GM (MIRALAX) PACK PO SCH (20:38)
--- NOTE | 2018-04-27 21:14 | PM & R (SOAP) Progress Note ---
Subjective This was a face to face visit with the patient. Date Seen by Provider: Apr 27, 2018 Time Seen by Provider: 20:30 Subjective/Events-last exam Patient was seen in his room this evening Contacted by staff earlier today re paTIENTS fEVR OVER weekend and presumed pneumonia on CXR Antibiotics ordered Patient Mod assist for transfers Discharge set for today to SNU postponed due to medical issues as per above Review of Systems Pulmonary: Dyspnea Objective Physician Exam Last Set of Vital Signs Vital Signs Date Time Temp Pulse Resp B/P (MAP) Pulse Ox O2 Delivery O2 Flow Rate FiO2 04/27/18 20:56 Nasal Cannula 2.00 04/27/18 16:48 98.0 84 16 135/84 (101) 97 Capillary Refill : I&O Intake and Output 04/27/18 00:00 Intake Total 1360 ml Balance 1360 ml Intake Oral 1360 ml # Voids 6 # Bowel Movements 2 General: Alert, Cooperative, No Acute Distress HEENT: Atraumatic, PERRLA, EOMI, Mucous Memb Moist/[place], Other (Dysphagia dysarthria ) Neck: Supple, No JVD Lungs: Clear to Auscultation, Other (Decreased breath sounds) Heart: Normal S1, Normal S2, Other (Systolic murmur at the left sternal border) Abdomen: Normal Bowel Sounds, Soft, No Tenderness Extremities: No Clubbing, No Cyanosis, No Edema Skin: No Rashes, No Breakdown Neuro: Other (Can SLR bilayeral with Left arm still weak) Psych/Mental Status: Mental Status NL, Mood NL Results Lab Data Laboratory Tests 04/25/18 05:09: Glucometer 207H 04/25/18 11:21: Glucometer 239H 04/25/18 16:06: Glucometer 273H 04/25/18 20:22: Glucometer 237H 04/26/18 06:26: Glucometer 200H 04/26/18 11:14: Glucometer 125H 04/26/18 15:23: Glucometer 172H 04/26/18 20:46: Glucometer 188H 04/27/18 04:07: White Blood Count 14.7H, Red Blood Count 3.52L, Hemoglobin 9.8L, Hematocrit 30L , Mean Corpuscular Volume 85, Mean Corpuscular Hemoglobin 28, Mean Corpuscular Hemoglobin Concent 33, Red Cell Distribution Width 17.7H, Platelet Count 288, Mean Platelet Volume 9.5, Sodium Level 134L, Potassium Level 4.4, Chloride Level 103, Carbon Dioxide Level 23, Anion Gap 8, Blood Urea Nitrogen 26H, Creatinine 1.19, Estimat Glomerular Filtration Rate 60, BUN/Creatinine Ratio 22 , Glucose Level 137H, Calcium Level 8.3L 04/27/18 11:05: Glucometer 230H 04/27/18 16:15: Glucometer 192H 04/27/18 20:35: Glucometer 122H Assessment/Plan Assessment and Plan RT cva with left HP Dysphagia on modified diet DM Pneumonia on 02 and antibiotics Chronic afib CAD Depression improved with meds Insomnia improved Constipation resolved Plan Continue PT/OT/ST Team Conference 04-29-18 Hopefully discharge by end of week to SNU Co-Morbidities that are continuing to impact the rehab process: (include details ) EMMY JULIEN MD Apr 27, 2018 21:14
[2018-04-28] MEDS: inSUlin ASPART (NovoLOG) 1 UNIT/0.01 ML (CHARGE PER UNIT) SC SCH ×4 (05:11→20:57)
[2018-04-28] MEDS: LACTOBACILLUS ACIDOPHILUS (PROBIOTIC) CAPSULE PO SCH ×3 (05:11→16:23)
[2018-04-28 05:49] VITALS: BP 121/69
[2018-04-28] MEDS: FLUTICASONE NASAL SPRAY (FLONASE) 16 GM BTL NS SCH (09:00)
[2018-04-28] MEDS: SENNA W/DOCUSATE (SENOKOT S) TABLET PO SCH ×2 (09:00→20:56)
--- NOTE | 2018-04-28 09:02 | PM & R (SOAP) Progress Note ---
Subjective This was a face to face visit with the patient. Date Seen by Provider: Apr 28, 2018 Time Seen by Provider: 08:00 Subjective/Events-last exam Patient was seen in his room this AM Patient quite fatigued.Discussed case with RN .Patient Mod assist for transfers Objective Physician Exam Last Set of Vital Signs Vital Signs Date Time Temp Pulse Resp B/P (MAP) Pulse Ox O2 Delivery O2 Flow Rate FiO2 04/28/18 05:49 99.0 77 16 121/69 (86) 97 Nasal Cannula 2.00 Capillary Refill : I&O Intake and Output 04/28/18 00:00 Intake Total 1240 ml Balance 1240 ml Intake Oral 1240 ml # Voids 6 # Bowel Movements 1 General: Alert, Cooperative, No Acute Distress HEENT: Atraumatic, PERRLA, EOMI, Mucous Memb Moist/[place], Other (Dysphagia dysarthria ) Neck: Supple, No JVD Lungs: Clear to Auscultation, Other (Decreased breath sounds) Heart: Normal S1, Normal S2, Other (Systolic murmur at the left sternal border) Abdomen: Normal Bowel Sounds, Soft, No Tenderness Extremities: No Clubbing, No Cyanosis, No Edema Skin: No Rashes, No Breakdown Neuro: Other (Can SLR bilayeral with Left arm still weak) Psych/Mental Status: Mental Status NL, Mood NL Results Lab Data Laboratory Tests 04/25/18 11:21: Glucometer 239H 04/25/18 16:06: Glucometer 273H 04/25/18 20:22: Glucometer 237H 04/26/18 06:26: Glucometer 200H 04/26/18 11:14: Glucometer 125H 04/26/18 15:23: Glucometer 172H 04/26/18 20:46: Glucometer 188H 04/27/18 04:07: White Blood Count 14.7H, Red Blood Count 3.52L, Hemoglobin 9.8L, Hematocrit 30L , Mean Corpuscular Volume 85, Mean Corpuscular Hemoglobin 28, Mean Corpuscular Hemoglobin Concent 33, Red Cell Distribution Width 17.7H, Platelet Count 288, Mean Platelet Volume 9.5, Sodium Level 134L, Potassium Level 4.4, Chloride Level 103, Carbon Dioxide Level 23, Anion Gap 8, Blood Urea Nitrogen 26H, Creatinine 1.19, Estimat Glomerular Filtration Rate 60, BUN/Creatinine Ratio 22 , Glucose Level 137H, Calcium Level 8.3L 04/27/18 11:05: Glucometer 230H 04/27/18 16:15: Glucometer 192H 04/27/18 20:35: Glucometer 122H 04/28/18 04:55: Glucometer 75 Assessment/Plan Assessment and Plan RT cva with left HP Dysphagia on thickened liquids DM Pneumonia under treatment Chronic A FIB CAD Depression improved with med Insomnia improved with med Constipation treated Plan Continue PT/OT/ST Team Conference tomorrow 04-29-18 F/U with PCP and Pulm Discharge to SNU as previously planned once medically stable for transfer Co-Morbidities that are continuing to impact the rehab process: (include details ) EMMY JULIEN MD Apr 28, 2018 09:02
[2018-04-28] MEDS: FAMOTIDINE 20 MG (PEPCID) TABLET PO SCH ×2 (10:15→20:49)
[2018-04-28] MEDS: APIXABAN 5 MG (ELIQUIS) TABLET PO SCH ×2 (10:15→20:49)
[2018-04-28] MEDS: CLOPIDOGREL 75 MG (PLAVIX) TABLET PO SCH (10:15)
[2018-04-28] MEDS: LORATADINE (CLARITIN) 10 MG TAB PO SCH (10:15)
[2018-04-28] MEDS: AZITHROMYCIN 250 MG TAB (ZITHROMAX) PO SCH (10:15)
[2018-04-28] MEDS: inSUlin DETERMIR 1 UNIT/0.01 ML (LEVEMIR) CHARGE PER UNIT SQ SCH ×2 (10:23→20:55)
--- NOTE | 2018-04-28 11:01 | Physical Therapy Daily Note ---
PT Daily Note-Current Subjective pt in w/c pre tx, agrees to PT, no complaints of pain, nurse in room to check blood sugar Appearance pt in w/c post tx, w/ phone, call light, tray, all needs met, OT to begin treatment after PT Mental Status Patient Orientation: Person, Place, Time Transfers Functional Rankin Measure 0=Not Assessed/NA 4=Minimal Assistance 1=Total Assistance 5=Supervision or Setup 2=Maximal Assistance 6=Modified Rankin 3=Moderate Assistance 7=Complete IndependenceIRFPAI Quality Coding Scale 6 Independent with activity with or without an assistive device 5 Patient requires set up or clean up by helper. Patient completes activity by themselves 4 Supervision or touching assist (CGA). Zap provide cues , steadying assist 3 The helper provides less than half the effort to complete the activity 2 The helper provides more than half the effort to complete the activity 1 Dependent. The helper does all the effort to complete an activity 7 Patient refused to complete or attempt activity 9 The patient did not perform the activity before the current illness or injury 88 Not attempted due to Medical conditions or safety concerns Transfers (B, C, W/C) (FIM): 3 Sit to/from Stand: 3 Bed to/from Chair: 3 sit<->stand modA, pt needs cues to lean forward and gain momentum as he lifts off. Pt flops into chair as he sits, cues needed for foot placement and turning all the way, as well as to grab chair and control descent Weight Bearing Right Lower Extremity: Right Weight Bearing/Tolerated Left Lower Extremity: Left Weight Bearing/Tolerated Gait Training Does the Patient Walk?: Yes Gait (FIM): 1 Distance (FIM): 1=up to 49 ft Distance: 20'x4 Gait Level of Assist: 3 Gait Persons Needed: 1 Gait Assistive Device: Walker Rodolfo pt ambulates 20'x4 w/ rodolfo-walker w/ modA. Pt needs cues for step length and leaning on walker on R side. Pt demonstrates hyperextension in L knee and flexed posture at hips, cues needed for standing up straight Wheelchair Training Does the Pt Use a Wheelchair?: Yes Wheelchair (FIM): 2 Wheelchair Distance: 8=239-65 ft Distance: 120'x2 Wheelchair Level of Assist: 4 Type of Wheelchair: Manual Pt uses w/c to/from gym w/ Johan w/ cues and assistance avoiding objects, turning , and positioning. Pt uses RLE and RUE for propulsion Exercises Standing: Side steps side steps in parallel bars 10'x4 w/ Johan, pt needs cues for foot placement and standing up straight to stay balanced Treatments w/c training, gait training Assessment Current Status: Fair Progress improved endurance and mobility, increased gait training distance and fewer instances of knee hyperextension. Less fatigue today. PT Short Term Goals Short Term Goals Time Frame: Apr 02, 2018 Transfers (B,C,W/C) (FIM): 3 Gait (FIM): 1 Gait Distance Comment: 20' Gait Level of Assist: 2 Gait Assistive Device: Cane Large Base Quad Wheelchair Distance: 100' PT Crime Investigator Special Agent Goals Snf Goals PT Crime Investigator Special Agent Goals Time Frame: Apr 16, 2018 Transfers (B,C,W/C) (FIM): 4 Sit to Lying (QC): 3 Lying-Sitting on Side/Bed(QC): 3 Sit to Stand (QC): 3 Rollin Roll Left to Right (QC): 3 Chair/Suq-bn-Bfbiu Xfer(QC): 3 Car Transfer (QC): 3 Gait (FIM): 2 Distance: 50' Walk 10 feet (QC): 3 Walk 10ft-Uneven Surface(QC): 3 Walk 50ft with 2 Turns (QC): 3 Gait Level of Assist: 4 Gait Assistive Device: Cane Large Base Quad Wheelchair (FIM): 6 Distance: 200' Wheel 50 feet with 2 turns (QC: 6 PT Plan Problem List Problem List: Activity Tolerance, Functional Strength, Safety, Balance, Gait, Transfer, Bed Mobility Treatment/Plan Treatment Plan: Continue Plan of Care Treatment Plan: Bed Mobility, Concurrent Therapy, Education, Functional Activity Sukhdeep, Functional Strength, Group Therapy, Gait, Safety, Therapeutic Exercise, Transfers Treatment Duration: May 18, 2018 Frequency: At least 5 of 7 days/Wk (IRF) Estimated Hrs Per Day: 1.5 hours per day Patient and/or Family Agrees t: Yes Safety Risks/Education Patient Education: Gait Training, Transfer Techniques, Correct Positioning, W/ C Management, Safety Issues Teaching Recipient: Patient Teaching Methods: Demonstration, Discussion Response to Teaching: Reinforcement Needed Time/GCodes Time In: 1000 Time Out: 1100 Total Billed Treatment Time: 60 Total Billed Treatment 1 visit [facility] 15' GT 45' CAMMY BLACK PT Apr 28, 2018 11:00
[2018-04-28] MEDS: cefTRIAXone FOR IV USE 1,000 MG in NS (IVPB) 50 ML IV SCH (11:46)
--- NOTE | 2018-04-28 11:50 | Occupational Ther Daily Note ---
OT Current Status-Daily Note Subjective Pt alert, lying in bed. Pt agrees to therapy. No c/o pain. Pt had used urinal and it had spilled. Mental Status/Objective Patient Orientation: Person, Place, Time, Mumbles Functional [place] Measure 0=Not Assessed/NA 4=Minimal Assistance 1=Total Assistance 5=Supervision or Setup 2=Maximal Assistance 6=Modified [place] 3=Moderate Assistance 7=Complete [place] Attachments: IV, Oxygen ADL-Treatment Mod A for supine to sitting EOB. Mod A to transfer to w/c. Pt declined bathing , though did agree to wash buttocks/ag area. Pt stood with mod A while assist to cleanse area. Assist to don/doff clothing over feet and hike up hips. Min A to don shirt after set up. Mod I for oral care sitting at sink in w/c. PT took over care after OT session. Functional [place] Measure 0=Not Assessed/NA 4=Minimal Assistance 1=Total Assistance 5=Supervision or Setup 2=Maximal Assistance 6=Modified [place] 3=Moderate Assistance 7=Complete IndependenceIRFPAI Quality Coding Scale 6 Independent with activity with or without an assistive device 5 Patient requires set up or clean up by helper. Patient completes activity by themselves 4 Supervision or touching assist (CGA). [place] provide cues , steadying assist 3 The helper provides less than half the effort to complete the activity 2 The helper provides more than half the effort to complete the activity 1 Dependent. The helper does all the effort to complete an activity 7 Patient refused to complete or attempt activity 9 The patient did not perform the activity before the current illness or injury 88 Not attempted due to Medical conditions or safety concerns Grooming (FIM): 6 Oral Hygiene (QC): 6 Upper Body (FIM): 4 Upper Body Dressing (QC): 3 Lower Body Dressing (FIM): 2 Lower Body Dressing (QC): 2 On/Off Footwear (QC): 2 OT Short Term Goals Short Term Goals Time Frame: Apr 09, 2018 Eating(FIM): 6 Grooming(FIM): 5 Bathing(FIM): 4 Upper Body Dressing(FIM): 4 Lower Body Dressing(FIM): 3 Toileting(FIM): 4 Transfers (B,C,W/C) (FIM): 3 Toilet/Commode Transfer(FIM): 4 Shower Transfer(FIM): 4 Additional Short Term Goals: 1-Demonstrate ADL Tasks, 2-Verbalize Understanding , 3-ImproveStrength/Sukhdeep 1=Demonstrate adherence to instructed precautions during ADL tasks. 2=Patient will verbalize/demonstrate understanding of assistive devices/ modifications for ADL. 3=Patient will improve strength/tolerance for activity to enable patient to perform ADL's. OT Usp Goals Prosthetic Dentist Goals Time Frame: Apr 23, 2018 Eating (FIM): 6 (continue goal) Eating (QC): 6 Groomin (Met at wheelchair level.) Oral Hygiene (QC): 6 Bathing(FIM): 5 (continue goal) Shower/Bathe Self (QC): 5 Upper Body Dressing(FIM): 5 (continue goal) Upper Body Dressing (QC): 5 Lower Body Dressing(FIM): 5 (continue goal) Lower Body Dressing (QC): 5 On/Off Footwear (QC): 5 Toileting(FIM): 6 (continue goal) Toileting Hygiene (QC): 6 Transfers (B,C,W/C) (FIM): 6 (continue goal) Toilet/Commode Transfer(FIM): 6 (continue gol) Toilet/Commode Transfer (QC): 6 Shower Transfer(FIM): 5 (continue goal) Additional Goals: 1-Demonstrate ADL Tasks, 2-Verbalize Understanding, 3- ImproveStrength/Sukhdeep 1=Demonstrate adherence to instructed precautions during ADL tasks. 2=Patient will verbalize/demonstrate understanding of assistive devices/ modifications for ADL. 3=Patient will improve strength/tolerance for activity to enable patient to perform ADL's. OT Education/Plan Discharge Recommendations Plan/Recommendations: Continue POC Treatment Plan/Plan of Care Patient would benefit from OT for education, treatment and training to promote independence in ADL's, mobility, safety and/or upper extremity function for ADL' s. Plan of Care: ADL Retraining, Caregiver Training, Functional Mobility, Group Exercise/Act as Ind, UE Funct Exercise/Act Treatment Duration: Apr 23, 2018 Frequency: At least 5 of 7 days/Wk (IRF) Estimated Hrs Per Day: 1.5 hours per day Agreement: Yes Rehab Potential: Fair Time/GCodes Start Time: 09:30 Stop Time: 10:00 Total Time Billed (hr/min): 30 Billed Treatment Time 1 visit-ADL 2 (30 min) JIMMY DHILLON Apr 28, 2018 11:50
--- NOTE | 2018-04-28 11:55 | Occupational Ther Daily Note ---
OT Current Status-Daily Note Subjective Pt alert, sitting in w/c. Just finished up with PT. No c/o pain at this time. Mental Status/Objective Patient Orientation: Person, Place, Time, Mumbles Functional [place] Measure 0=Not Assessed/NA 4=Minimal Assistance 1=Total Assistance 5=Supervision or Setup 2=Maximal Assistance 6=Modified [place] 3=Moderate Assistance 7=Complete [place] Attachments: IV, Oxygen ADL-Treatment Functional [place] Measure 0=Not Assessed/NA 4=Minimal Assistance 1=Total Assistance 5=Supervision or Setup 2=Maximal Assistance 6=Modified [place] 3=Moderate Assistance 7=Complete IndependenceIRFPAI Quality Coding Scale 6 Independent with activity with or without an assistive device 5 Patient requires set up or clean up by helper. Patient completes activity by themselves 4 Supervision or touching assist (CGA). [place] provide cues , steadying assist 3 The helper provides less than half the effort to complete the activity 2 The helper provides more than half the effort to complete the activity 1 Dependent. The helper does all the effort to complete an activity 7 Patient refused to complete or attempt activity 9 The patient did not perform the activity before the current illness or injury 88 Not attempted due to Medical conditions or safety concerns Toileting (FIM): 2 (Pt able to cleanse self on toilet. Requires assistance to stand and manipulate clothes.) Toileting Hygiene (QC): 2 Transfers (B, C, W/C) (FIM): 3 Toilet/Commode Transfer (FIM): 3 (Mod A using victoriano walker and BSC.) Toilet Transfer (QC): 3 Other Treatment AAROM/APROM L UE exercises 1 set 10 reps. Pt demonstrates active movement throughout UE. HMP to L shldr to decrease tightness and increase scapular/ shldr mobility. Educated pt on deep breathing techniques, pt unable to demonstrate understanding and continues to take short breaths with minimal diaphragm movement. After therapy, nrsg present in room. Pt lying in bed with call light in reach. All needs met in room. Education OT Patient Education: Exercise program, Purpose of tx/functional activities Teaching Recipient: Patient Teaching Methods: Demonstration, Discussion Response to Teaching: Verbalize Understanding, Unable to Return Demonstration, Return Demonstration, Reinforcement Needed OT Short Term Goals Short Term Goals Time Frame: Apr 09, 2018 Eating(FIM): 6 Grooming(FIM): 5 Bathing(FIM): 4 Upper Body Dressing(FIM): 4 Lower Body Dressing(FIM): 3 Toileting(FIM): 4 Transfers (B,C,W/C) (FIM): 3 Toilet/Commode Transfer(FIM): 4 Shower Transfer(FIM): 4 Additional Short Term Goals: 1-Demonstrate ADL Tasks, 2-Verbalize Understanding , 3-ImproveStrength/Sukhdeep 1=Demonstrate adherence to instructed precautions during ADL tasks. 2=Patient will verbalize/demonstrate understanding of assistive devices/ modifications for ADL. 3=Patient will improve strength/tolerance for activity to enable patient to perform ADL's. OT Event Attendant Goals Event Attendant Goals Time Frame: Apr 23, 2018 Eating (FIM): 6 (continue goal) Eating (QC): 6 Groomin (Met at wheelchair level.) Oral Hygiene (QC): 6 Bathing(FIM): 5 (continue goal) Shower/Bathe Self (QC): 5 Upper Body Dressing(FIM): 5 (continue goal) Upper Body Dressing (QC): 5 Lower Body Dressing(FIM): 5 (continue goal) Lower Body Dressing (QC): 5 On/Off Footwear (QC): 5 Toileting(FIM): 6 (continue goal) Toileting Hygiene (QC): 6 Transfers (B,C,W/C) (FIM): 6 (continue goal) Toilet/Commode Transfer(FIM): 6 (continue gol) Toilet/Commode Transfer (QC): 6 Shower Transfer(FIM): 5 (continue goal) Additional Goals: 1-Demonstrate ADL Tasks, 2-Verbalize Understanding, 3- ImproveStrength/Sukhdeep 1=Demonstrate adherence to instructed precautions during ADL tasks. 2=Patient will verbalize/demonstrate understanding of assistive devices/ modifications for ADL. 3=Patient will improve strength/tolerance for activity to enable patient to perform ADL's. OT Education/Plan Discharge Recommendations Plan/Recommendations: Continue POC Treatment Plan/Plan of Care Patient would benefit from OT for education, treatment and training to promote independence in ADL's, mobility, safety and/or upper extremity function for ADL' s. Plan of Care: ADL Retraining, Caregiver Training, Functional Mobility, Group Exercise/Act as Ind, UE Funct Exercise/Act Treatment Duration: Apr 23, 2018 Frequency: At least 5 of 7 days/Wk (IRF) Estimated Hrs Per Day: 1.5 hours per day Agreement: Yes Rehab Potential: Fair Time/GCodes Start Time: 11:00 Stop Time: 11:30 Total Time Billed (hr/min): 60 Billed Treatment Time 1 visit-ADL 2 (30 min) NM 2 (30 min) JIMMY DHILLON Apr 28, 2018 11:55
--- NOTE | 2018-04-28 14:10 | Physical Therapy Daily Note ---
PT Daily Note-Current Subjective pt in bed pre tx, agrees to PT, no pain to report Appearance pt in bed post tx, w/ phone, call light, tray, all needs met, nurse notified of scratch on L elbow Mental Status Patient Orientation: Person, Place, Time Attachments: Oxygen (2L when in bed) Transfers Functional [place] Measure 0=Not Assessed/NA 4=Minimal Assistance 1=Total Assistance 5=Supervision or Setup 2=Maximal Assistance 6=Modified [place] 3=Moderate Assistance 7=Complete IndependenceIRFPAI Quality Coding Scale 6 Independent with activity with or without an assistive device 5 Patient requires set up or clean up by helper. Patient completes activity by themselves 4 Supervision or touching assist (CGA). [place] provide cues , steadying assist 3 The helper provides less than half the effort to complete the activity 2 The helper provides more than half the effort to complete the activity 1 Dependent. The helper does all the effort to complete an activity 7 Patient refused to complete or attempt activity 9 The patient did not perform the activity before the current illness or injury 88 Not attempted due to Medical conditions or safety concerns Transfers (B, C, W/C) (FIM): 3 Scootin Rollin Supine to/from Sit: 3 Sit to/from Stand: 4 Bed to/from Chair: 3 supine<->sit modA, pt needs assistance getting legs into/out of bed and scooting shoulders in bed, sit<->stand Johan, pt shows improved momentum transfer during lift off and decreased cues required for hand placement, bed<-> chair, modA, pt requires cuing for foot placement and turning Weight Bearing Right Lower Extremity: Right Weight Bearing/Tolerated Left Lower Extremity: Left Weight Bearing/Tolerated Wheelchair Training Does the Pt Use a Wheelchair?: Yes Wheelchair (FIM): 2 Wheelchair Distance: 9=379-63 ft Distance: 120' Type of Wheelchair: Manual pt uses w/c to/from gym w/ Johan, pt requires cues for turning and w/c positioning, as well as assistance avoiding objects on L side, pt uses RLE and RUE for propulsion Exercises NuStep Minutes: 15 NuStep Workload: 3 Treatments w/c training, endurance training Assessment Current Status: Fair Progress improved sit<->stand transfers w/ few cues required, pt seems more alert and less fatigued than previous visits PT Short Term Goals Short Term Goals Time Frame: Apr 02, 2018 Transfers (B,C,W/C) (FIM): 3 Gait (FIM): 1 Gait Distance Comment: 20' Gait Level of Assist: 2 Gait Assistive Device: Cane Large Base Quad Wheelchair Distance: 120'x2 PT Group Home Goals Group Home Goals PT Powder Compounder Goals Time Frame: Apr 16, 2018 Transfers (B,C,W/C) (FIM): 4 Sit to Lying (QC): 3 Lying-Sitting on Side/Bed(QC): 3 Sit to Stand (QC): 3 Rollin Roll Left to Right (QC): 3 Chair/Dfq-yh-Sxdvx Xfer(QC): 3 Car Transfer (QC): 3 Gait (FIM): 2 Distance: 50' Walk 10 feet (QC): 3 Walk 10ft-Uneven Surface(QC): 3 Walk 50ft with 2 Turns (QC): 3 Gait Level of Assist: 4 Gait Assistive Device: Cane Large Base Quad Wheelchair (FIM): 6 Distance: 200' Wheel 50 feet with 2 turns (QC: 6 PT Plan Problem List Problem List: Activity Tolerance, Functional Strength, Safety, Balance, Gait, Transfer, Bed Mobility, ROM Treatment/Plan Treatment Plan: Continue Plan of Care Treatment Plan: Bed Mobility, Concurrent Therapy, Education, Functional Activity Sukhdeep, Functional Strength, Group Therapy, Gait, Safety, Therapeutic Exercise, Transfers Treatment Duration: May 18, 2018 Frequency: At least 5 of 7 days/Wk (IRF) Estimated Hrs Per Day: 1.5 hours per day Patient and/or Family Agrees t: Yes Safety Risks/Education Patient Education: Gait Training, Transfer Techniques, Correct Positioning, Safety Issues Teaching Recipient: Patient Teaching Methods: Demonstration, Discussion Response to Teaching: Reinforcement Needed Time/GCodes Time In: 1330 Time Out: 1400 Total Billed Treatment Time: 30 Total Billed Treatment 1 visit [facility] 15' EX 15' CAMMY BLACK PT Apr 28, 2018 14:10
[2018-04-28 16:03] VITALS: BP 115/67
[2018-04-28] MEDS: ATORVASTATIN 40 MG (LIPITOR) TABLET PO SCH (20:48)
[2018-04-28] MEDS: traZODone 50 MG (DESYREL) TAB PO SCH (20:49)
[2018-04-28] MEDS: POLYETHYLENE GLYCOL 17 GM (MIRALAX) PACK PO SCH (20:56)
--- NOTE | 2018-04-28 22:08 | Progress Note-Hospitalist ---
Subjective HPI/CC On Admission Date Seen by Provider: Apr 28, 2018 Time Seen by Provider: 09:40 Mr. Guerin is a frail 73-year-old white male who developed abrupt onset of left upper quadrant pain on 18 March. 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 He was discharged with pain medication. On [address] scanning of the chest with contrast for evaluation of subcarinal fullness. It was felt to represent adenopathy a little more prominent than a previous CT scan of the chest in 2012 per radiologist report. No pulmonary abnormalities were reported. He also had significant cholelithiasis without symptoms to suggest cholecystitis. Sometime shortly thereafter he developed left-sided weakness and was transferred to [facility] where he was noted to have a right sided CVA without evidence for significant extracranial vascular disease. He ultimately underwent cardiac catheterization as well which reportedly revealed mild hypokinesis with estimated ejection fraction of 40 percent he did have 3 patent grafts he had some disease in the PDA distal to his RCA graft and also had some disease in the obtuse marginal system that was not bypassed. Medical management was opted for however and the patient did not undergo any endovascular-based therapy. He is transferred back to our rehabilitation unit to continue redilatation for deficits that include left-sided hemiparesis as well as dysarthria and mild dysphasia. He reports that he has been swallowing without coughing on thickened liquids and solids. He denies abdominal pain but does note some sores in his mouth. He states that while he still has significant weakness he has had improvement in movement of the left upper extremity and left lower extremity. The left lower extremity is been affected to a lesser degree than left upper extremity. Past medical history seen for long-standing poorly controlled insulin requiring type II diabetes due to poor compliance with bolus therapy for many years. 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 For this reason he had not been on anticoagulant therapy for known underlying persistent atrial fibrillation. He had no previous known history of thromboembolic disease. He has been placed on eliquis and reports no change in vision and also denies ocular pain. He also was diagnosed with urinary tract infection and discharged on Levaquin to our facility. He also has known significant peripheral neuropathy and pressure ulceration with past osteomyelitis of the great toe requiring partial amputation on the left. In the past she's had multiple foot ulcers but is been some time since he last required treatment for diabetic-related foot ulceration. Focused Exam Lactate Level 05/01/18 06:55: Lactic Acid Level 1.04 Objective Exam Vital Signs Vital Signs Date Time Temp Pulse Resp B/P (MAP) Pulse Ox O2 Delivery O2 Flow Rate FiO2 05/01/18 09:31 20 05/01/18 09:00 Nasal Cannula 3.00 05/01/18 05:16 99.0 72 122/67 (85) 95 04/30/18 16:56 28 Capillary Refill : General Appearance: No Apparent Distress, Chronically ill, Thin Respiratory: Chest Non Tender, Lungs Clear, Normal Breath Sounds, No Accessory Muscle Use, No Respiratory Distress Cardiovascular: No Gallop, No JVD, No Murmur, Irregularly Irregular Gastrointestinal: Normal Bowel Sounds, No Organomegaly, No Pulsatile Mass, Non Tender, Soft Results/Procedures Lab Laboratory Tests 05/01/18 06:55 Patient resulted labs reviewed. Assessment/Plan Assessment and Plan Assess & Plan/Chief Complaint 1. 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 Considering splenic infarct likely embolic as well we did discuss the risk of anticoagulant therapy and recurrent hemorrhage versus benefits. In my estimation benefits significantly outweigh risk as she would be highly likely to continue to have embolic symptoms. The downside would be retinal hemorrhages would likely lead to blindness in the affected eye. Patient agrees with continuing anticoagulant therapy.No change in vision reported. Barium base swallowing study does reveal evidence for small volume aspiration and vallecular pooling. Patient has no evidence for aspiration pneumonitis at this time continuing to work with speech therapy. 2. Known significant coronary artery disease with mild LV systolic dysfunction continue baby aspirin daily. 3. Type II diabetes mellitus insulin requiring erratic control due to erratic by mouth intake will decrease Levemir to 10 unitsin the morning and 5 units at night. If his appetite increases however his blood sugar levels will go up and will likely be increasing insulin continue to monitor. 4. Thrush resolved will DC nystatin.. 5. Chronic atrial fibrillation currently rate controlled. 6. Reported urinary tract infection with resolution on repeat UA.. 7. Carinal fullness on CT scan possible adenopathy considering the patient's frailty and multiple medical symptoms we will see about obtaining PET scan as an outpatient. 8. Depression ndogenous as well as reactive likely contributing to poor appetite will increase citalopram to 40 mg at at bedtime and see if this does not help out insomnia as wellwhich is likely due to depression. .9. Known chronic systolic heart failure secondary to ischemic cardiomyopathy discussed the fact that thus far as blood pressures have not been too low and as long she is not having significant orthostatic hypotension he needed to stay on metoprolol and losartan for heart failure prevention. 10. Recent onset fever patchy airspace disease noted on chest x-ray low-grade fever but without the usual classic symptoms for bacterial pneumonia. He also lacks typical symptoms of and he seemed viral URI with no other reports of illness going on from a respiratory standpoint on acute rehabilitation. At this point in my mind the benefits of amiodarone are outweighed by the risk and concerns for pulmonary toxicity will hold the medication for now and discuss further with Dr. House. Agree with antibiotics and we'll need to hold discharge. He does not appear to be in acute distress at this point would favor continued physical therapy as tolerated and remaining on acute rehabilitation unit although if there is any worsening in symptoms certainly agree with transfer to acute care. Clinical Quality Measures DVT/VTE Risk/Contraindication: Risk Factor Score Per Nursin RFS Level Per Nursing on Admit: 4+=Very High BEVERLY FERNANDES MD Apr 28, 2018 22:08
[2018-04-29 05:46] VITALS: BP 112/63
[2018-04-29] MEDS: inSUlin ASPART (NovoLOG) 1 UNIT/0.01 ML (CHARGE PER UNIT) SC SCH ×4 (06:00→20:52)
[2018-04-29] MEDS: LACTOBACILLUS ACIDOPHILUS (PROBIOTIC) CAPSULE PO SCH ×3 (06:27→16:27)
[2018-04-29] MEDS: FAMOTIDINE 20 MG (PEPCID) TABLET PO SCH ×2 (08:42→20:47)
[2018-04-29] MEDS: APIXABAN 5 MG (ELIQUIS) TABLET PO SCH ×2 (08:42→20:46)
[2018-04-29] MEDS: CLOPIDOGREL 75 MG (PLAVIX) TABLET PO SCH (08:42)
[2018-04-29] MEDS: AZITHROMYCIN 250 MG TAB (ZITHROMAX) PO SCH (08:43)
[2018-04-29] MEDS: inSUlin DETERMIR 1 UNIT/0.01 ML (LEVEMIR) CHARGE PER UNIT SQ SCH ×2 (08:44→20:53)
[2018-04-29] MEDS: cefTRIAXone FOR IV USE 1,000 MG in NS (IVPB) 50 ML IV SCH (08:44)
[2018-04-29] MEDS: FLUTICASONE NASAL SPRAY (FLONASE) 16 GM BTL NS SCH (08:45)
[2018-04-29] MEDS: LORATADINE (CLARITIN) 10 MG TAB PO SCH (08:45)
[2018-04-29] MEDS: SENNA W/DOCUSATE (SENOKOT S) TABLET PO SCH ×2 (09:33→20:51)
--- NOTE | 2018-04-29 09:51 | PM & R (SOAP) Progress Note ---
Subjective This was a face to face visit with the patient. 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 Objective Physician Exam Last Set of Vital Signs Vital Signs Date Time Temp Pulse Resp B/P (MAP) Pulse Ox O2 Delivery O2 Flow Rate FiO2 04/29/18 08:27 Nasal Cannula 2.50 04/29/18 05:46 98.2 61 16 112/63 (79) 96 Capillary Refill : I&O Intake and Output 04/29/18 00:00 Intake Total 1600 ml Balance 1600 ml Intake Oral 1600 ml # Voids 7 # Bowel Movements 2 General: Alert, Cooperative, No Acute Distress HEENT: Atraumatic, PERRLA, EOMI, Mucous Memb Moist/[place], Other (Dysphagia dysarthria ) Neck: Supple, No JVD Lungs: Clear to Auscultation, Other (Decreased breath sounds) Heart: Normal S1, Normal S2, Other (Systolic murmur at the left sternal border) Abdomen: Normal Bowel Sounds, Soft, No Tenderness Extremities: No Clubbing, No Cyanosis, No Edema Skin: No Rashes, No Breakdown Neuro: Other (Can SLR bilayeral with Left arm still weak) Psych/Mental Status: Mental Status NL, Mood NL Results Lab Data Laboratory Tests 04/26/18 11:14: Glucometer 125H 04/26/18 15:23: Glucometer 172H 04/26/18 20:46: Glucometer 188H 04/27/18 04:07: White Blood Count 14.7H, Red Blood Count 3.52L, Hemoglobin 9.8L, Hematocrit 30L , Mean Corpuscular Volume 85, Mean Corpuscular Hemoglobin 28, Mean Corpuscular Hemoglobin Concent 33, Red Cell Distribution Width 17.7H, Platelet Count 288, Mean Platelet Volume 9.5, Sodium Level 134L, Potassium Level 4.4, Chloride Level 103, Carbon Dioxide Level 23, Anion Gap 8, Blood Urea Nitrogen 26H, Creatinine 1.19, Estimat Glomerular Filtration Rate 60, BUN/Creatinine Ratio 22 , Glucose Level 137H, Calcium Level 8.3L 04/27/18 11:05: Glucometer 230H 04/27/18 16:15: Glucometer 192H 04/27/18 20:35: Glucometer 122H 04/28/18 04:55: Glucometer 75 04/28/18 10:12: Glucometer 203H 04/28/18 16:02: Glucometer 205H 04/28/18 20:17: Glucometer 125H 04/29/18 05:15: Glucometer 63L 04/29/18 05:49: Glucometer 67L Assessment/Plan Assessment and Plan RT Cva with Left HP Dysphagia on thickened liquids Pneumonia under treatment Dr Burleson feels patient should be ready for discharge to a SNU next Friday05-04-18 from a medical standpoint Chronic A FIB CAD Depression improved with med DM with low BGS early am adjust meds as per PCP Insomnia improved for most part Constipation treated Plan Continue PT/OT/ST Team Conference later today -see report for full functional update and POC and to confirm discharge date of 05-04-18 Co-Morbidities that are continuing to impact the rehab process: (include details ) EMMY JULIEN MD Apr 29, 2018 09:51
--- NOTE | 2018-04-29 11:01 | Physical Therapy Daily Note ---
PT Daily Note-Current Subjective pt in bed pre tx, agrees to PT, no pain to report, pt states he feels very tired and only got about and hour of sleep last night Appearance pt in w/c post tx, w/ phone, call light, tray, all needs met, OT to begin soon Mental Status Patient Orientation: Person, Place, Time Attachments: Oxygen pt felt SOB when placed supine to begin exercises, pt moved to sitting and checked BP and O2 Sat. 134/79 and 85% respectively, 3L of O2 administered, O2 sat. increased to 90%, checked periodically throughout remainder of therapy, stayed at 89-94% range, nurse notified Transfers Functional [place] Measure 0=Not Assessed/NA 4=Minimal Assistance 1=Total Assistance 5=Supervision or Setup 2=Maximal Assistance 6=Modified [place] 3=Moderate Assistance 7=Complete IndependenceIRFPAI Quality Coding Scale 6 Independent with activity with or without an assistive device 5 Patient requires set up or clean up by helper. Patient completes activity by themselves 4 Supervision or touching assist (CGA). [place] provide cues , steadying assist 3 The helper provides less than half the effort to complete the activity 2 The helper provides more than half the effort to complete the activity 1 Dependent. The helper does all the effort to complete an activity 7 Patient refused to complete or attempt activity 9 The patient did not perform the activity before the current illness or injury 88 Not attempted due to Medical conditions or safety concerns Transfers (B, C, W/C) (FIM): 3 Scootin Rollin Supine to/from Sit: 3 Sit to/from Stand: 3 Bed to/from Chair: 3 modA w/ all transfers, supine<->sit pt needs assistance w/ getting legs into/ out of bed, sit<->stand pt needs cues for leaning forward and foot placement, pt flops into chair during sitting, bed<->chair pt struggles maintaining balance while pivoting and needs cues for weight shifting and foot placement Weight Bearing Right Lower Extremity: Right Weight Bearing/Tolerated Left Lower Extremity: Left Weight Bearing/Tolerated Gait Training Does the Patient Walk?: Yes Gait (FIM): 1 Distance (FIM): 1=up to 49 ft Distance: 50' Gait Level of Assist: 3 Gait Persons Needed: 1 Gait Assistive Device: Walker Rodolfo pt ambulates from room 50' before needing rest, pt demonstrates L knee hyperextension and leans heavily toward L side, needs cues for step length, cane placement, and leaning to the R side to maintain balance Wheelchair Training Does the Pt Use a Wheelchair?: Yes Wheelchair (FIM): 2 Wheelchair Distance: 6=047-35 ft Distance: 120' Wheelchair Level of Assist: 4 Type of Wheelchair: Manual pt uses w/c to/from gym w/ Johan for turning and avoiding objects, pt moves very slowly, using RUE and RLE for propulsion Exercises Seated Therapy Exercises: Ankle pumps, Long arc quads, Hip flexion, Hip abd/add Seated Reps: 40 Treatments gait training, w/c training, functional strengthening Assessment Current Status: Poor Progress pt continues to struggle getting sleep at night, pt is very fatigued during therapy, decreased ability to ambulate and increased assistance w/ transfers, pt unable to tolerate supine positioning for exercise due to SOB, PT Short Term Goals Short Term Goals Time Frame: Apr 02, 2018 Transfers (B,C,W/C) (FIM): 3 Gait (FIM): 1 Gait Distance Comment: 20' Gait Level of Assist: 2 Gait Assistive Device: Cane Large Base Quad Wheelchair Distance: 120' PT Long-Term Goals Director Funeral Goals PT Long-Term Goals Time Frame: Apr 16, 2018 Transfers (B,C,W/C) (FIM): 4 Sit to Lying (QC): 3 Lying-Sitting on Side/Bed(QC): 3 Sit to Stand (QC): 3 Rollin Roll Left to Right (QC): 3 Chair/Olt-xr-Wdfpi Xfer(QC): 3 Car Transfer (QC): 3 Gait (FIM): 2 Distance: 50' Walk 10 feet (QC): 3 Walk 10ft-Uneven Surface(QC): 3 Walk 50ft with 2 Turns (QC): 3 Gait Level of Assist: 4 Gait Assistive Device: Cane Large Base Quad Wheelchair (FIM): 6 Distance: 200' Wheel 50 feet with 2 turns (QC: 6 PT Plan Problem List Problem List: Activity Tolerance, Functional Strength, Safety, Balance, Gait, Transfer, Bed Mobility, ROM Treatment/Plan Treatment Plan: Continue Plan of Care Treatment Plan: Bed Mobility, Concurrent Therapy, Education, Functional Activity Sukhdeep, Functional Strength, Group Therapy, Gait, Safety, Therapeutic Exercise, Transfers Treatment Duration: May 18, 2018 Frequency: At least 5 of 7 days/Wk (IRF) Estimated Hrs Per Day: 1.5 hours per day Patient and/or Family Agrees t: Yes Safety Risks/Education Patient Education: Gait Training, Transfer Techniques, Correct Positioning, W/ C Management, Safety Issues Teaching Recipient: Patient Teaching Methods: Demonstration, Discussion Response to Teaching: Reinforcement Needed Time/GCodes Time In: 1000 Time Out: 1100 Total Billed Treatment Time: 60 Total Billed Treatment 1 visit [facility] 15' [facility] 10' EX 35' CAMMY BLACK PT Apr 29, 2018 11:01
--- NOTE | 2018-04-29 13:30 | Occupational Ther Daily Note ---
OT Current Status-Daily Note Subjective Pt alert, lying in bed. Pt c/o being woke up at 0400. Pt agrees to therapy. Mental Status/Objective Patient Orientation: Person, Place, Time, Situation Functional [place] Measure 0=Not Assessed/NA 4=Minimal Assistance 1=Total Assistance 5=Supervision or Setup 2=Maximal Assistance 6=Modified [place] 3=Moderate Assistance 7=Complete [place] ADL-Treatment Max A for supine to EOB. Pt incontinent of bowel. Max A to transfer from EOB to BSC. Assist x2 to manipulate clothing. Pt able to cleanse self on toilet. Assist to don/doff pants over feet due to decreased activity tolerance and O2 levels. Sitting in w/c pt able to complete oral care/grooming at sink. After therapy, pt left in care of PT. All needs met in room. Functional [place] Measure 0=Not Assessed/NA 4=Minimal Assistance 1=Total Assistance 5=Supervision or Setup 2=Maximal Assistance 6=Modified [place] 3=Moderate Assistance 7=Complete IndependenceIRFPAI Quality Coding Scale 6 Independent with activity with or without an assistive device 5 Patient requires set up or clean up by helper. Patient completes activity by themselves 4 Supervision or touching assist (CGA). [place] provide cues , steadying assist 3 The helper provides less than half the effort to complete the activity 2 The helper provides more than half the effort to complete the activity 1 Dependent. The helper does all the effort to complete an activity 7 Patient refused to complete or attempt activity 9 The patient did not perform the activity before the current illness or injury 88 Not attempted due to Medical conditions or safety concerns Grooming (FIM): 6 Oral Hygiene (QC): 6 Lower Body Dressing (FIM): 2 Lower Body Dressing (QC): 2 On/Off Footwear (QC): 2 Toileting (FIM): 1 Toileting Hygiene (QC): 1 Toilet/Commode Transfer (FIM): 2 Toilet Transfer (QC): 2 OT Short Term Goals Short Term Goals Time Frame: Apr 09, 2018 Eating(FIM): 6 Grooming(FIM): 5 Bathing(FIM): 4 Upper Body Dressing(FIM): 4 Lower Body Dressing(FIM): 3 Toileting(FIM): 4 Transfers (B,C,W/C) (FIM): 3 Toilet/Commode Transfer(FIM): 4 Shower Transfer(FIM): 4 Additional Short Term Goals: 1-Demonstrate ADL Tasks, 2-Verbalize Understanding , 3-ImproveStrength/Sukhdeep 1=Demonstrate adherence to instructed precautions during ADL tasks. 2=Patient will verbalize/demonstrate understanding of assistive devices/ modifications for ADL. 3=Patient will improve strength/tolerance for activity to enable patient to perform ADL's. OT Stock Preparer Goals Mcc Goals Time Frame: Apr 23, 2018 Eating (FIM): 6 (continue goal) Eating (QC): 6 Groomin (Met at wheelchair level.) Oral Hygiene (QC): 6 Bathing(FIM): 5 (continue goal) Shower/Bathe Self (QC): 5 Upper Body Dressing(FIM): 5 (continue goal) Upper Body Dressing (QC): 5 Lower Body Dressing(FIM): 5 (continue goal) Lower Body Dressing (QC): 5 On/Off Footwear (QC): 5 Toileting(FIM): 6 (continue goal) Toileting Hygiene (QC): 6 Transfers (B,C,W/C) (FIM): 6 (continue goal) Toilet/Commode Transfer(FIM): 6 (continue gol) Toilet/Commode Transfer (QC): 6 Shower Transfer(FIM): 5 (continue goal) Additional Goals: 1-Demonstrate ADL Tasks, 2-Verbalize Understanding, 3- ImproveStrength/Sukhdeep 1=Demonstrate adherence to instructed precautions during ADL tasks. 2=Patient will verbalize/demonstrate understanding of assistive devices/ modifications for ADL. 3=Patient will improve strength/tolerance for activity to enable patient to perform ADL's. OT Education/Plan Discharge Recommendations Plan/Recommendations: Continue POC Treatment Plan/Plan of Care Patient would benefit from OT for education, treatment and training to promote independence in ADL's, mobility, safety and/or upper extremity function for ADL' s. Plan of Care: ADL Retraining, Caregiver Training, Functional Mobility, Group Exercise/Act as Ind, UE Funct Exercise/Act Treatment Duration: Apr 23, 2018 Frequency: At least 5 of 7 days/Wk (IRF) Estimated Hrs Per Day: 1.5 hours per day Agreement: Yes Rehab Potential: Fair Time/GCodes Start Time: 09:30 Stop Time: 10:00 Total Time Billed (hr/min): 30 Billed Treatment Time 1 visit-ADL 2 (30 min) JIMMY DHILLON Apr 29, 2018 13:30
--- NOTE | 2018-04-29 13:35 | Occupational Ther Daily Note ---
OT Current Status-Daily Note Subjective Pt alert, sitting in w/c. Pt agrees to therapy. Pt had difficulty breathing with PT, per pt and PT. Mental Status/Objective Functional [place] Measure 0=Not Assessed/NA 4=Minimal Assistance 1=Total Assistance 5=Supervision or Setup 2=Maximal Assistance 6=Modified [place] 3=Moderate Assistance 7=Complete [place] ADL-Treatment Pt demonstrated increase SOB, taking shallow breaths with mouth instead of through nose to use O2. Mod A for supine to sitting EOB. Max A for SPT using FWW. Pt sat in w/c at sink to complete grooming, verbal cue for missed area when shaving, completed all. Transferred with max A from w/c to shower chair with cutout. Close SBA for bathing, set up and assist to wash R UE. Assist to dry feet, buttocks and shldrs. Due to pt's decreased O2 sats, lowest being 74, increased pt's assistance with dressing. Pt took increased time for recovery breaks with O2 at 3-5L. Pt transferred back to bed max A transfer. Closely monitored O2 sats until returning to 90 and above. Reported to nrsg. After therapy, pt lying in bed with call light in reach. present in room. All needs met in room. Functional [place] Measure 0=Not Assessed/NA 4=Minimal Assistance 1=Total Assistance 5=Supervision or Setup 2=Maximal Assistance 6=Modified [place] 3=Moderate Assistance 7=Complete IndependenceIRFPAI Quality Coding Scale 6 Independent with activity with or without an assistive device 5 Patient requires set up or clean up by helper. Patient completes activity by themselves 4 Supervision or touching assist (CGA). [place] provide cues , steadying assist 3 The helper provides less than half the effort to complete the activity 2 The helper provides more than half the effort to complete the activity 1 Dependent. The helper does all the effort to complete an activity 7 Patient refused to complete or attempt activity 9 The patient did not perform the activity before the current illness or injury 88 Not attempted due to Medical conditions or safety concerns Grooming (FIM): 5 Bathing (FIM): 3 Bathing Location: L Arm, L Upper Leg, R Upper Leg, L Lower Leg (including foot) , R Lower Leg (including foot), Chest, Abdomen, Buttocks, Perineal Area Shower/Bathe Self (QC): 3 Upper Body (FIM): 3 Upper Body Dressing (QC): 3 Lower Body Dressing (FIM): 2 Lower Body Dressing (QC): 2 On/Off Footwear (QC): 2 Shower Transfer(FIM): 1 OT Short Term Goals Short Term Goals Time Frame: Apr 09, 2018 Eating(FIM): 6 Grooming(FIM): 5 Bathing(FIM): 4 Upper Body Dressing(FIM): 4 Lower Body Dressing(FIM): 3 Toileting(FIM): 4 Transfers (B,C,W/C) (FIM): 3 Toilet/Commode Transfer(FIM): 4 Shower Transfer(FIM): 4 Additional Short Term Goals: 1-Demonstrate ADL Tasks, 2-Verbalize Understanding , 3-ImproveStrength/Sukhdeep 1=Demonstrate adherence to instructed precautions during ADL tasks. 2=Patient will verbalize/demonstrate understanding of assistive devices/ modifications for ADL. 3=Patient will improve strength/tolerance for activity to enable patient to perform ADL's. OT Barrel Handler Goals Long-Term Goals Time Frame: Apr 23, 2018 Eating (FIM): 6 (continue goal) Eating (QC): 6 Groomin (Met at wheelchair level.) Oral Hygiene (QC): 6 Bathing(FIM): 5 (continue goal) Shower/Bathe Self (QC): 5 Upper Body Dressing(FIM): 5 (continue goal) Upper Body Dressing (QC): 5 Lower Body Dressing(FIM): 5 (continue goal) Lower Body Dressing (QC): 5 On/Off Footwear (QC): 5 Toileting(FIM): 6 (continue goal) Toileting Hygiene (QC): 6 Transfers (B,C,W/C) (FIM): 6 (continue goal) Toilet/Commode Transfer(FIM): 6 (continue gol) Toilet/Commode Transfer (QC): 6 Shower Transfer(FIM): 5 (continue goal) Additional Goals: 1-Demonstrate ADL Tasks, 2-Verbalize Understanding, 3- ImproveStrength/Sukhdeep 1=Demonstrate adherence to instructed precautions during ADL tasks. 2=Patient will verbalize/demonstrate understanding of assistive devices/ modifications for ADL. 3=Patient will improve strength/tolerance for activity to enable patient to perform ADL's. OT Education/Plan Discharge Recommendations Plan/Recommendations: Continue POC Treatment Plan/Plan of Care Patient would benefit from OT for education, treatment and training to promote independence in ADL's, mobility, safety and/or upper extremity function for ADL' s. Plan of Care: ADL Retraining, Caregiver Training, Functional Mobility, Group Exercise/Act as Ind, UE Funct Exercise/Act Treatment Duration: Apr 23, 2018 Frequency: At least 5 of 7 days/Wk (IRF) Estimated Hrs Per Day: 1.5 hours per day Agreement: Yes Rehab Potential: Fair Time/GCodes Start Time: 11:00 Stop Time: 12:00 Total Time Billed (hr/min): 60 Billed Treatment Time 1 visit-ADL 4 (60 min) JIMMY DHILLON Apr 29, 2018 13:35
[2018-04-29] MEDS ORDERED: LORATADINE (CLARITIN) 10 MG TAB PO PRN (14:30)
[2018-04-29] MEDS ORDERED: FLUTICASONE NASAL SPRAY (FLONASE) 16 GM BTL NS PRN (14:30)
--- NOTE | 2018-04-29 15:32 | Physical Therapy Daily Note ---
PT Daily Note-Current Subjective pt in bed pre tx, agrees to PT, pt reports no pain, he feels better than this morning after getting some sleep Appearance pt on commode for BM post tx w/ nurse call light, all needs met Mental Status Patient Orientation: Person, Place, Time Attachments: Oxygen (3L) Transfers Functional [place] Measure 0=Not Assessed/NA 4=Minimal Assistance 1=Total Assistance 5=Supervision or Setup 2=Maximal Assistance 6=Modified [place] 3=Moderate Assistance 7=Complete IndependenceIRFPAI Quality Coding Scale 6 Independent with activity with or without an assistive device 5 Patient requires set up or clean up by helper. Patient completes activity by themselves 4 Supervision or touching assist (CGA). [place] provide cues , steadying assist 3 The helper provides less than half the effort to complete the activity 2 The helper provides more than half the effort to complete the activity 1 Dependent. The helper does all the effort to complete an activity 7 Patient refused to complete or attempt activity 9 The patient did not perform the activity before the current illness or injury 88 Not attempted due to Medical conditions or safety concerns Transfers (B, C, W/C) (FIM): 3 Scootin Rollin Supine to/from Sit: 3 Sit to/from Stand: 3 Bed to/from Chair: 3 modA for all transfers, supine<->sit pt needs assistance getting both legs into/ out of bed and scooting shoulders, sit<->stand pt needs cues for leaning towards right side, bed<->chair cues needed for foot and hand placement, pt tends to lean backward during pivot and flops into chair Weight Bearing Right Lower Extremity: Right Weight Bearing/Tolerated Left Lower Extremity: Left Weight Bearing/Tolerated Exercises NuStep Minutes: 15 NuStep Workload: 3 Treatments endurance training, transfer training Assessment Current Status: Fair Progress pt getting better w/ fewer cues needed for transfers, patient appears less fatigued this afternoon than the morning session PT Short Term Goals Short Term Goals Time Frame: Apr 02, 2018 Transfers (B,C,W/C) (FIM): 3 Gait (FIM): 1 Gait Distance Comment: 20' Gait Level of Assist: 2 Gait Assistive Device: Cane Large Base Quad Wheelchair Distance: 120' PT Tax Attorney Goals Tax Attorney Goals PT Tax Attorney Goals Time Frame: Apr 16, 2018 Transfers (B,C,W/C) (FIM): 4 Sit to Lying (QC): 3 Lying-Sitting on Side/Bed(QC): 3 Sit to Stand (QC): 3 Rollin Roll Left to Right (QC): 3 Chair/Cfd-xs-Manvg Xfer(QC): 3 Car Transfer (QC): 3 Gait (FIM): 2 Distance: 50' Walk 10 feet (QC): 3 Walk 10ft-Uneven Surface(QC): 3 Walk 50ft with 2 Turns (QC): 3 Gait Level of Assist: 4 Gait Assistive Device: Cane Large Base Quad Wheelchair (FIM): 6 Distance: 200' Wheel 50 feet with 2 turns (QC: 6 PT Plan Problem List Problem List: Activity Tolerance, Functional Strength, Safety, Balance, Gait, Transfer, Bed Mobility, ROM Treatment/Plan Treatment Plan: Continue Plan of Care Treatment Plan: Bed Mobility, Concurrent Therapy, Education, Functional Activity Sukhdeep, Functional Strength, Group Therapy, Gait, Safety, Therapeutic Exercise, Transfers Treatment Duration: May 18, 2018 Frequency: At least 5 of 7 days/Wk (IRF) Estimated Hrs Per Day: 1.5 hours per day Patient and/or Family Agrees t: Yes Safety Risks/Education Patient Education: Gait Training, Transfer Techniques, Correct Positioning, Safety Issues Teaching Recipient: Patient Teaching Methods: Demonstration, Discussion Response to Teaching: Reinforcement Needed Time/GCodes Time In: 1500 Time Out: 1530 Total Billed Treatment Time: 30 Total Billed Treatment 1 visit EX 15' FA 15' CAMMY BLACK PT Apr 29, 2018 15:32
[2018-04-29 17:20] VITALS: BP 111/67
[2018-04-29] MEDS: ATORVASTATIN 40 MG (LIPITOR) TABLET PO SCH (20:46)
[2018-04-29] MEDS: traZODone 50 MG (DESYREL) TAB PO SCH (20:46)
[2018-04-29] MEDS: POLYETHYLENE GLYCOL 17 GM (MIRALAX) PACK PO SCH (20:51)
[2018-04-29] MEDS: ACETAMINOPHEN 325 MG TABLET PO PRN (20:57)
--- NOTE | 2018-04-29 21:00 | Diagnostic Imaging Report ---
PROCEDURE: US left lower extremity venous. TECHNIQUE: Multiple real-time grayscale images were obtained over the left lower extremity in various projections. Additional duplex Doppler and color Doppler images were also obtained. DATE: April 29, 2018. INDICATION: 73-year-old male, increased swelling of the left leg. Evaluation for deep venous thrombosis. COMPARISON: February 14, 2017. FINDINGS: The left common femoral vein, left superficial femoral vein, and left popliteal vein are all compressible with normal flow and response to augmentation. The visualized portions of the left greater saphenous and deep femoral vein are patent. The left posterior tibial vein and peroneal veins are patent. IMPRESSION: 1. Negative for left lower extremity deep venous thrombosis. Dictated by: Dictated on workstation # [id number]
[2018-04-30 06:00] VITALS: BP 131/69
[2018-04-30] MEDS: inSUlin ASPART (NovoLOG) 1 UNIT/0.01 ML (CHARGE PER UNIT) SC SCH ×4 (06:00→21:16)
[2018-04-30] MEDS: LACTOBACILLUS ACIDOPHILUS (PROBIOTIC) CAPSULE PO SCH ×3 (07:09→16:11)
[2018-04-30] MEDS: CLOPIDOGREL 75 MG (PLAVIX) TABLET PO SCH (08:37)
[2018-04-30] MEDS: AZITHROMYCIN 250 MG TAB (ZITHROMAX) PO SCH (08:38)
[2018-04-30] MEDS: APIXABAN 5 MG (ELIQUIS) TABLET PO SCH ×2 (08:38→21:40)
[2018-04-30] MEDS: FAMOTIDINE 20 MG (PEPCID) TABLET PO SCH ×2 (08:38→21:40)
[2018-04-30] MEDS: cefTRIAXone FOR IV USE 1,000 MG in NS (IVPB) 50 ML IV SCH (08:39)
[2018-04-30] MEDS: SENNA W/DOCUSATE (SENOKOT S) TABLET PO SCH ×2 (08:40→21:41)
[2018-04-30] MEDS: inSUlin DETERMIR 1 UNIT/0.01 ML (LEVEMIR) CHARGE PER UNIT SQ SCH ×2 (08:40→21:40)
--- NOTE | 2018-04-30 10:39 | Occupational Ther Daily Note ---
OT Current Status-Daily Note Mental Status/Objective Functional [place] Measure 0=Not Assessed/NA 4=Minimal Assistance 1=Total Assistance 5=Supervision or Setup 2=Maximal Assistance 6=Modified [place] 3=Moderate Assistance 7=Complete [place] Attachments: IV, Oxygen ADL-Treatment Pt requested to use BSC. Mod A supine to sitting EOB using bed rail and HOB raised. Max A EOB to BSC transfer using victoriano-walker. Incontinent of bowel. Assist to manipulate clothing. Sitting on BSC pt able to cleanse self after BM , assist needed to thoroughly cleanse after incontinence. Due to decreased activity tolerance and SOA difficulties assist given for lower body dressing. At w/c level, pt able to complete own grooming. Functional [place] Measure 0=Not Assessed/NA 4=Minimal Assistance 1=Total Assistance 5=Supervision or Setup 2=Maximal Assistance 6=Modified [place] 3=Moderate Assistance 7=Complete IndependenceIRFPAI Quality Coding Scale 6 Independent with activity with or without an assistive device 5 Patient requires set up or clean up by helper. Patient completes activity by themselves 4 Supervision or touching assist (CGA). [place] provide cues , steadying assist 3 The helper provides less than half the effort to complete the activity 2 The helper provides more than half the effort to complete the activity 1 Dependent. The helper does all the effort to complete an activity 7 Patient refused to complete or attempt activity 9 The patient did not perform the activity before the current illness or injury 88 Not attempted due to Medical conditions or safety concerns Grooming (FIM): 6 Oral Hygiene (QC): 6 Toileting (FIM): 1 Toileting Hygiene (QC): 1 Transfers (B, C, W/C) (FIM): 2 Toilet/Commode Transfer (FIM): 2 Toilet Transfer (QC): 2 Pt transported via w/c therapy gym at w/c level. Pt completed arm bike increasing UE strength and activity tolerance 15 min/ no resistance needing numerous rest breaks, O2 sats checked each rest break never going under 90. APROM on L UE's. Pt transported via w/c back to room, after therapy pt remained in w/c with call light/ phone within reach. All needs met in room. Family and nrsg present in room. OT Short Term Goals Short Term Goals Time Frame: Apr 09, 2018 Eating(FIM): 6 Grooming(FIM): 5 Bathing(FIM): 4 Upper Body Dressing(FIM): 4 Lower Body Dressing(FIM): 3 Toileting(FIM): 4 Transfers (B,C,W/C) (FIM): 3 Toilet/Commode Transfer(FIM): 4 Shower Transfer(FIM): 4 Additional Short Term Goals: 1-Demonstrate ADL Tasks, 2-Verbalize Understanding , 3-ImproveStrength/Sukhdeep 1=Demonstrate adherence to instructed precautions during ADL tasks. 2=Patient will verbalize/demonstrate understanding of assistive devices/ modifications for ADL. 3=Patient will improve strength/tolerance for activity to enable patient to perform ADL's. 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 Goals Longterm Goals Time Frame: Apr 23, 2018 Eating (FIM): 6 (continue goal) Eating (QC): 6 Groomin (Met at wheelchair level.) Oral Hygiene (QC): 6 Bathing(FIM): 5 (continue goal) Shower/Bathe Self (QC): 5 Upper Body Dressing(FIM): 5 (continue goal) Upper Body Dressing (QC): 5 Lower Body Dressing(FIM): 5 (continue goal) Lower Body Dressing (QC): 5 On/Off Footwear (QC): 5 Toileting(FIM): 6 (continue goal) Toileting Hygiene (QC): 6 Transfers (B,C,W/C) (FIM): 6 (continue goal) Toilet/Commode Transfer(FIM): 6 (continue gol) Toilet/Commode Transfer (QC): 6 Shower Transfer(FIM): 5 (continue goal) Additional Goals: 1-Demonstrate ADL Tasks, 2-Verbalize Understanding, 3- ImproveStrength/Sukhdeep 1=Demonstrate adherence to instructed precautions during ADL tasks. 2=Patient will verbalize/demonstrate understanding of assistive devices/ modifications for ADL. 3=Patient will improve strength/tolerance for activity to enable patient to perform ADL's. OT Education/Plan Discharge Recommendations Plan/Recommendations: Continue POC Treatment Plan/Plan of Care Patient would benefit from OT for education, treatment and training to promote independence in ADL's, mobility, safety and/or upper extremity function for ADL' s. Plan of Care: ADL Retraining, Caregiver Training, Functional Mobility, Group Exercise/Act as Ind, UE Funct Exercise/Act Treatment Duration: Apr 23, 2018 Frequency: At least 5 of 7 days/Wk (IRF) Estimated Hrs Per Day: 1.5 hours per day Agreement: Yes Rehab Potential: Fair Time/GCodes Start Time: 08:30 Stop Time: 10:00 Total Time Billed (hr/min): 90 Billed Treatment Time 1 visit-ADL 4 (60 min) EX 2 (30 min) JIMMY DHILLON Apr 30, 2018 10:39
--- NOTE | 2018-04-30 10:46 | Physical Therapy Daily Note ---
PT Daily Note-Current Subjective pt in w/c pre tx, agrees to PT, no pain to report, has just finished OT Appearance pt in bed post tx w/ phone, call light, tray, all needs met Mental Status Patient Orientation: Person, Place, Time Attachments: Oxygen, IV (finished before beginning treatment) Transfers Functional [place] Measure 0=Not Assessed/NA 4=Minimal Assistance 1=Total Assistance 5=Supervision or Setup 2=Maximal Assistance 6=Modified [place] 3=Moderate Assistance 7=Complete IndependenceIRFPAI Quality Coding Scale 6 Independent with activity with or without an assistive device 5 Patient requires set up or clean up by helper. Patient completes activity by themselves 4 Supervision or touching assist (CGA). [place] provide cues , steadying assist 3 The helper provides less than half the effort to complete the activity 2 The helper provides more than half the effort to complete the activity 1 Dependent. The helper does all the effort to complete an activity 7 Patient refused to complete or attempt activity 9 The patient did not perform the activity before the current illness or injury 88 Not attempted due to Medical conditions or safety concerns Transfers (B, C, W/C) (FIM): 3 Scootin Rollin Supine to/from Sit: 3 Sit to/from Stand: 3 modA w/ all transfers, sit->supine pt needs assistance getting both legs into bed and scooting shoulders over, sit<->stand pt does better out of w/c w/ extra height from cushion, pt is able to push off but tends to lose balance backwards upon standing, bed<->chair pt needs cues for foot placement and turning Weight Bearing Right Lower Extremity: Right Weight Bearing/Tolerated Left Lower Extremity: Left Weight Bearing/Tolerated Gait Training Does the Patient Walk?: Yes Distance (FIM): 1=up to 49 ft Distance: 20'x3 Gait Assistive Device: Walker Rodolfo pt ambulates in gym 20'x3 w/ modA using rodolfo-walker, pt tends to lean forward and needs cues for stride length and standing up straight, pt shows improved ability to recover from LOB, but needs a lot of cues for hand and foot placement during turning as well as standing up stright instead of leaning forward Wheelchair Training Does the Pt Use a Wheelchair?: Yes Wheelchair (FIM): 2 Wheelchair Distance: 6=653-16 ft Distance: 120' Wheelchair Level of Assist: 4 Type of Wheelchair: Manual pt uses w/c to gym w/ Johan, needs assistance and cues for turning and avoiding objects, pt uses RUE and RLE for propulsion Exercises NuStep Minutes: 15 NuStep Workload: 3 Treatments w/c training, gait training, endurance training Assessment Current Status: Fair Progress patient fatigues quickly, gets SOB PT Short Term Goals Short Term Goals Time Frame: Apr 02, 2018 Transfers (B,C,W/C) (FIM): 3 Gait (FIM): 1 Gait Distance Comment: 20' Gait Level of Assist: 2 Gait Assistive Device: Cane Large Base Quad Wheelchair Distance: 120' PT Capacity Manager Goals Capacity Manager Goals PT Capacity Manager Goals Time Frame: Apr 16, 2018 Transfers (B,C,W/C) (FIM): 4 Sit to Lying (QC): 3 Lying-Sitting on Side/Bed(QC): 3 Sit to Stand (QC): 3 Rollin Roll Left to Right (QC): 3 Chair/Tic-uy-Mzrth Xfer(QC): 3 Car Transfer (QC): 3 Gait (FIM): 2 Distance: 50' Walk 10 feet (QC): 3 Walk 10ft-Uneven Surface(QC): 3 Walk 50ft with 2 Turns (QC): 3 Gait Level of Assist: 4 Gait Assistive Device: Cane Large Base Quad Wheelchair (FIM): 6 Distance: 200' Wheel 50 feet with 2 turns (QC: 6 PT Plan Problem List Problem List: Activity Tolerance, Functional Strength, Safety, Balance, Gait, Transfer, Bed Mobility, ROM Treatment/Plan Treatment Plan: Continue Plan of Care Treatment Plan: Bed Mobility, Concurrent Therapy, Education, Functional Activity Sukhdeep, Functional Strength, Group Therapy, Gait, Safety, Therapeutic Exercise, Transfers Treatment Duration: May 18, 2018 Frequency: At least 5 of 7 days/Wk (IRF) Estimated Hrs Per Day: 1.5 hours per day Patient and/or Family Agrees t: Yes Safety Risks/Education Patient Education: Gait Training, Transfer Techniques, Correct Positioning, Safety Issues Teaching Recipient: Patient Teaching Methods: Demonstration, Discussion Response to Teaching: Reinforcement Needed Time/GCodes Time In: 1000 Time Out: 1100 Total Billed Treatment Time: 60 Total Billed Treatment 1 visit EX 15' FA 10' GT 35' CAMMY BLACK PT Apr 30, 2018 10:46
--- NOTE | 2018-04-30 14:15 | Physical Therapy Daily Note ---
PT Daily Note-Current Subjective pt in bed pre tx, agrees to PT, no pain to report Appearance pt in bed post tx, w/ phone, call light, tray, all needs met, nurse notified of session cut short due to pt's SOB and O2 sats Mental Status Patient Orientation: Person, Place, Time Attachments: Oxygen (3L) Transfers Functional [place] Measure 0=Not Assessed/NA 4=Minimal Assistance 1=Total Assistance 5=Supervision or Setup 2=Maximal Assistance 6=Modified [place] 3=Moderate Assistance 7=Complete IndependenceIRFPAI Quality Coding Scale 6 Independent with activity with or without an assistive device 5 Patient requires set up or clean up by helper. Patient completes activity by themselves 4 Supervision or touching assist (CGA). [place] provide cues , steadying assist 3 The helper provides less than half the effort to complete the activity 2 The helper provides more than half the effort to complete the activity 1 Dependent. The helper does all the effort to complete an activity 7 Patient refused to complete or attempt activity 9 The patient did not perform the activity before the current illness or injury 88 Not attempted due to Medical conditions or safety concerns Transfers (B, C, W/C) (FIM): 3 Scootin Supine to/from Sit: 3 Sit to/from Stand: 3 Bed to/from Chair: 3 sit<->stand modA w/ cues to lean forward and gain momentum for lift off, pt tends to lose balance backwards upon standing, supine<->sit modA pt needs assistance getting legs into/out of bed, bed<->chair modA pt needs cues for foot placement and positioning while turning, pt needs assistance keeping balance during turns Weight Bearing Right Lower Extremity: Right Weight Bearing/Tolerated Left Lower Extremity: Left Weight Bearing/Tolerated Wheelchair Training Does the Pt Use a Wheelchair?: Yes Wheelchair (FIM): 2 Wheelchair Distance: 3=249-33 ft Distance: 120' Wheelchair Level of Assist: 4 Type of Wheelchair: Manual pt uses w/c to gym w/ Johan w/ turning and avoiding objects, pt uses RLE and RUE for propulsion Exercises Seated Therapy Exercises: Long arc quads (40 REPS), Hip flexion (20 REPS) Treatments W/C training, functional strengthening Assessment Current Status: Poor Progress pt very fatigued w/ increased rest breaks needed during w/c training to the gym , pt complained of being SOB, O2 sat. checked, 85% w/ 3L O2, increased to 5L which improved O2 sat. to 90%, but pt still complains of feeling weak and unable to breathe very well, therapy session discontinued PT Short Term Goals Short Term Goals Time Frame: Apr 02, 2018 Transfers (B,C,W/C) (FIM): 3 Gait (FIM): 1 Gait Distance Comment: 20' Gait Level of Assist: 2 Gait Assistive Device: Cane Large Base Quad Wheelchair Distance: 120' PT Jail Goals Jail Goals PT Engineering Professor Goals Time Frame: Apr 16, 2018 Transfers (B,C,W/C) (FIM): 4 Sit to Lying (QC): 3 Lying-Sitting on Side/Bed(QC): 3 Sit to Stand (QC): 3 Rollin Roll Left to Right (QC): 3 Chair/Qun-uz-Hxgwy Xfer(QC): 3 Car Transfer (QC): 3 Gait (FIM): 2 Distance: 50' Walk 10 feet (QC): 3 Walk 10ft-Uneven Surface(QC): 3 Walk 50ft with 2 Turns (QC): 3 Gait Level of Assist: 4 Gait Assistive Device: Cane Large Base Quad Wheelchair (FIM): 6 Distance: 200' Wheel 50 feet with 2 turns (QC: 6 PT Plan Problem List Problem List: Activity Tolerance, Functional Strength, Safety, Balance, Gait, Transfer, Bed Mobility Treatment/Plan Treatment Plan: Continue Plan of Care Treatment Plan: Bed Mobility, Concurrent Therapy, Education, Functional Activity Sukhdeep, Functional Strength, Group Therapy, Gait, Safety, Therapeutic Exercise, Transfers Treatment Duration: May 18, 2018 Frequency: At least 5 of 7 days/Wk (IRF) Estimated Hrs Per Day: 1.5 hours per day Patient and/or Family Agrees t: Yes Safety Risks/Education Patient Education: Gait Training, Transfer Techniques, Correct Positioning, Safety Issues Teaching Recipient: Patient Teaching Methods: Demonstration, Discussion Response to Teaching: Reinforcement Needed Time/GCodes Time In: 1330 Time Out: 1400 Total Billed Treatment Time: 30 Total Billed Treatment 1 visit [facility] 15' FA 15' KO MANNING PT Apr 30, 2018 14:15
[2018-04-30 16:02] VITALS: BP 118/65
[2018-04-30] MEDS: ACETAMINOPHEN 325 MG TABLET PO PRN ×2 (16:11→22:14)
[2018-04-30 16:56] VITALS: BP 118/65
[2018-04-30] MEDS ORDERED: RT-ALBUTEROL SULF 2.5 MG/3 ML PRE-MIX VIAL INH PRN (17:00)
--- NOTE | 2018-04-30 19:57 | Diagnostic Imaging Report ---
EXAMINATION: CHEST (PA AND LATERAL). CLINICAL INDICATION: 73-year-old male, shortness of breath. Followup pneumonia. COMPARISON: April 26, 2018. FINDINGS: There are median sternotomy wires. Heart size and mediastinal contours are likely grossly unchanged. There is no identified pneumothorax. There is no large pleural effusion. There is extensive multifocal bilateral lung consolidation which has increased in the right upper lobe and similar in the left lung compared to the comparison exam. The consolidation is entirely nonspecific. IMPRESSION: 1. Extensive multifocal bilateral lung consolidation with increased alveolar consolidation in the right upper lobe since comparison exam. The cause of the alveolar consolidation is entirely nonspecific. Dictated by: Dictated on workstation # [id number]
[2018-04-30] MEDS: RT-ALBUTEROL SULF 2.5 MG/3 ML PRE-MIX VIAL INH SCH (20:00)
--- NOTE | 2018-04-30 20:17 | PM & R (SOAP) Progress Note ---
Subjective This was a face to face visit with the patient. Date Seen by Provider: Apr 30, 2018 Time Seen by Provider: 20:00 Subjective/Events-last exam Patient was seen in his room this evening Patient Mod assist for transfers Patient concerned that his 02sats dropped when laaaayed flat on MAT in [facility] earlier today Will f/u with staf fin AM re this Review of Systems Pulmonary: Dyspnea Neurological: Weakness Objective Physician Exam Last Set of Vital Signs Vital Signs Date Time Temp Pulse Resp B/P (MAP) Pulse Ox O2 Delivery O2 Flow Rate FiO2 04/30/18 20:00 91 Nasal Cannula 3.00 04/30/18 16:56 81 28 04/30/18 16:51 99.5 04/30/18 16:02 16 118/65 (82) Capillary Refill : I&O Intake and Output 04/30/18 00:00 Intake Total 1310 ml Balance 1310 ml Intake Oral 1310 ml # Voids 7 # Bowel Movements 2 General: Alert, Cooperative, No Acute Distress HEENT: Atraumatic, PERRLA, EOMI, Mucous Memb Moist/[place], Other (Dysphagia dysarthria ) Neck: Supple, No JVD Lungs: Clear to Auscultation, Other (Decreased breath sounds) Heart: Normal S1, Normal S2, Other (Systolic murmur at the left sternal border) Abdomen: Normal Bowel Sounds, Soft, No Tenderness Extremities: No Clubbing, No Cyanosis, No Edema Skin: No Rashes, No Breakdown Neuro: Other (Can SLR bilayeral with Left arm still weak) Psych/Mental Status: Mental Status NL, Mood NL Results Lab Data Laboratory Tests 04/27/18 20:35: Glucometer 122H 04/28/18 04:55: Glucometer 75 04/28/18 10:12: Glucometer 203H 04/28/18 16:02: Glucometer 205H 04/28/18 20:17: Glucometer 125H 04/29/18 05:15: Glucometer 63L 04/29/18 05:49: Glucometer 67L 04/29/18 11:02: Glucometer 159H 04/29/18 16:30: Glucometer 108 04/29/18 20:33: Glucometer 182H 04/30/18 06:43: Glucometer 110 04/30/18 10:56: Glucometer 165H 04/30/18 15:58: Glucometer 262H 04/30/18 20:02: Glucometer 169H Assessment/Plan Assessment and Plan RT Cva with left HP Dysphagia on thickened liquids Pneumonia under rteatment Chronic A FIB CAD Depression improved with med DM meds adjusted Insomnia improved with med Constipation treated Plan Continue PT/OT/ST F/U with PCP prn Discharge reset tentatively for 05-04-18 to SNU Co-Morbidities that are continuing to impact the rehab process: (include details ) EMMY JULIEN MD Apr 30, 2018 20:17
[2018-04-30] MEDS: ATORVASTATIN 40 MG (LIPITOR) TABLET PO SCH (21:40)
[2018-04-30] MEDS: traZODone 50 MG (DESYREL) TAB PO SCH (21:40)
[2018-04-30] MEDS: POLYETHYLENE GLYCOL 17 GM (MIRALAX) PACK PO SCH (21:41)
[2018-05-01] MEDS: LOPERAMIDE 2 MG (IMODIUM) CAP PO PRN (02:12)
[2018-05-01] MEDS: RT-ALBUTEROL SULF 2.5 MG/3 ML PRE-MIX VIAL INH SCH ×2 (02:25→09:19)
[2018-05-01 05:16] VITALS: BP 122/67
[2018-05-01] MEDS: inSUlin ASPART (NovoLOG) 1 UNIT/0.01 ML (CHARGE PER UNIT) SC SCH ×2 (05:23→11:00)
[2018-05-01] MEDS: LACTOBACILLUS ACIDOPHILUS (PROBIOTIC) CAPSULE PO SCH ×2 (06:13→11:00)
[2018-05-01] MEDS ORDERED: PIPERACILLIN SODIUM/TAZOBACTAM 4.5 GM in NS (IVPB) 100 ML IV SCH (07:15)
[2018-05-01] MEDS ORDERED: PHARMACY TO DOSE IV SCH (07:15)
[2018-05-01 07:17] LABS: BASOPHILS % (AUTO) 0 % (0-10); EOSINOPHILS # (AUTO) 0.1 10^3/uL (0.0-0.3); EOSINOPHILS % (AUTO) 1 % (0-10); HEMATOCRIT 28 % (40-54); HEMOGLOBIN 9.2 G/DL (13.3-17.7); LYMPHOCYTES % (AUTO) 9 % (12-44); MEAN CORPUSCULAR HEMOGLOBIN 28 PG (25-34); MEAN CORPUSCULAR HGB CONC 33 G/DL (32-36); MEAN CORPUSCULAR VOLUME 84 FL (80-99); MEAN PLATELET VOLUME 9.6 FL (7.4-10.4); MONOCYTES % (AUTO) 9 % (0-12); NEUTROPHILS # (AUTO) 8.6 X 10^3 (1.8-7.8); NEUTROPHILS % (AUTO) 81 % (42-75); PLATELET COUNT 384 10^3/uL (130-400); RED BLOOD COUNT 3.29 10^6/uL (4.35-5.85); RED CELL DISTRIBUTION WIDTH 17.5 % (10.0-14.5); WHITE BLOOD COUNT 10.7 10^3/uL (4.3-11.0)
--- NOTE | 2018-05-01 07:19 | Pulmonary Consultation ---
History of Present Illness History of Present Illness Date of Consultation 05/01/18 07:10 Time Seen by Provider: 07:11 Date of Admission History of Present Illness 73yo with hx of DM II, Afib who is s/p right CVA transferred to [facility] then transferred to our rehab unit for PT/OT. He has also recently had a heart cath showing EF of 40% and CAD with 3 patent grafts. He has persistent left sided hemiparesis, dysphagia. Pt is currently being treated with Rocephin and azithromycin. Pt has been requiring increased oxygen requirements. CXR from yesterday shows extensive multifocal infiltrates. Allergies and Home Medications Allergies Coded Allergies: Iodinated Contrast- Oral and IV Dye (Unverified Allergy, Mild, RASH, ) Home Medications Acetaminophen 325 Mg Tablet, 650 MG PO Q6HR PRN for PAIN-MILD Prescribed by: EMMY JULIEN on 04/24/18743 Amiodarone HCl 400 Mg Tablet, 200 MG PO BID, (Reported) TAKES 1/2 (400MG) TABLET Apixaban 5 Mg Tablet, 5 MG PO BID Prescribed by: EMMY JULIEN on 04/24/18743 Atorvastatin Calcium 40 Mg Tablet, 40 MG PO HS Prescribed by: EMMY JULIEN on 04/24/18743 Citalopram Hydrobromide 20 Mg Tablet, 20 MG PO HS Prescribed by: EMMY JULIEN on 04/24/18743 Clopidogrel Bisulfate 75 Mg Tablet, 75 MG PO DAILY Prescribed by: EMMY JULIEN on 04/24/18743 Famotidine 20 Mg Tablet, 20 MG PO BID Prescribed by: EMMY JULIEN on 04/24/18743 Fluticasone Propionate 16 Gm [place].susp, 2 SPRAY NS BID, (Reported) Insulin Detemir 100 Unit/1 Ml Insuln.pen, 25 UNIT SQ Q12H, (Reported) Insulin Determir 1,000 Units/10 Ml Soln, 8 UNIT SQ HS Prescribed by: EMMY JULIEN on 04/24/18743 Insulin Determir 1,000 Units/10 Ml Soln, 15 UNIT SQ DAILY Prescribed by: EMMY JULIEN on 04/24/18743 Insulin Lispro 100 Unit/1 Ml Insuln.pen, 30 UNITS SC AC, (Reported) L. Acidophilus/[place] 1 Each Tablet, 1 TAB.CHEW PO AC Prescribed by: MEMY JULIEN on 04/24/18743 Loratadine 10 Mg Tablet, 10 MG PO DAILY Prescribed by: EMMY JULIEN on 04/24/18743 Losartan Potassium 25 Mg Tablet, 25 MG PO DAILY Prescribed by: EMMY JULIEN on 04/24/18743 Metoprolol Succinate 25 Mg Tab.er.24h, 25 MG PO DAILY Prescribed by: EMMY JULIEN on 04/24/18743 Past Lbrdbzh-Guagkw-[place] Hx Past Med/Social Hx: Reviewed and Corrections made Patient Social History Alcohol Use: Denies Use Recreational Drug Use: No Smoking Status: Never a Smoker 2nd Hand Smoke Exposure: No Recent Foreign Travel: No Contact w/Someone Who Travel: No Recent Infectious Disease Expo: No Recent Hopitalizations: Yes Immunizations Up To Date Tetanus Booster (TDap): Less than 5yrs Date of Pneumonia Vaccine: Aug 18, 2015 Seasonal Allergies Seasonal Allergies: No Past Medical History Surgeries: Yes Bladder Surgery, CABG, Coronary Stent, Eye Surgery, Prostatectomy Respiratory: No Cardiac: Yes Atrial Fibrillation, Coronary Artery Disease, Hypertension, Valvular Heart Disease Neurological: Yes Neuropathy Reproductive Disorders: No HIV/AIDS: No Genitourinary: Yes Prostate Problems Gastrointestinal: Yes Gastroesophageal Reflux, Chronic Constipation, Chronic Diarrhea Musculoskeletal: No Endocrine: Yes Diabetes, Insulin dep Are Your Blood Sugars Over 250: Yes HEENT: Yes Cataract Loss of Vision: Denies Hearing Impairment: Hard of Hearing Cancer: No BENIGN TUMOR EAR CATARACTS HAND, CARPAL TUNNEL Psychosocial: No Integumentary: No Recent Skin Changes Blood Disorders: No Adverse Reaction/Blood Tranf: No Family Medical History Diabetes mellitus 19 MOTHER, G8 SISTER FH: breast cancer 19 MOTHER, FH: emphysema 19 FATHER, FH: prostate cancer 19 FATHER, FH: stroke son Myocardial infarction son Diabetes, Stroke Review of Systems Time Seen by Provider: 12:28 Sepsis Event Evaluation Height, Weight, BMI Height: 6'3.00" Weight: 177lbs. 4.8oz. 80.004465zr; 20.0 BMI Method:Stated Exam Exam Vital Signs Date Time Temp Pulse Resp B/P (MAP) Pulse Ox O2 Delivery O2 Flow Rate FiO2 05/01/18 05:16 99.0 72 16 122/67 (85) 95 Nasal Cannula 3.00 05/01/18 02:25 91 Nasal Cannula 3.00 04/30/18 21:38 100.0 04/30/18 21:00 Nasal Cannula 2.00 04/30/18 20:00 91 Nasal Cannula 3.00 04/30/18 17:18 Nasal Cannula 3.00 04/30/18 16:56 81 95 28 04/30/18 16:51 99.5 04/30/18 16:02 101.0 81 16 118/65 (82) 95 04/30/18 09:00 Nasal Cannula 2.00 04/30/18 08:09 Nasal Cannula 2.50 I & O 05/01/18 07:00 Intake Total 1380 ml Balance 1380 ml Height & Weight Height: 6'3.00" Weight: 177lbs. 4.8oz. 80.107893ct; 20.0 BMI Method:Stated General Appearance: No Apparent Distress, Chronically ill, Thin HEENT: PERRL/EOMI, Other (Whitish plaques on tongue as well as buccal mucosa with some underlying erythema no ulceration noted) Neck: Full Range of Motion, Normal Inspection, Non Tender, Supple, Carotid Bruit Respiratory: Chest Non Tender, Lungs Clear, Normal Breath Sounds, No Accessory Muscle Use, No Respiratory Distress Cardiovascular: No Gallop, No JVD, Systolic Murmur (2 to 3/6 systolic ejection murmur unchanged), Irregularly Irregular Extremity: Other (Trace pedal in 1-2+ left hand edema no erythema and no tenderness) Neurologic/Psychiatric: Alert, Other (Somewhat flat affect patient repetitively with some improvement in control touch his left finger to his nose. 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 Mediastianl lymphadenopathy with station 7 subcarinal -Pt will need repeat CT of chest with contrast 6-8 weeks to ensure stability -Possible EBUS procedure as out patient if MLA continues. Afib, CAD -PT is on Plavix and eliquis -Cardiology following Right CVA with left sided hemiparesis DM II CANDI DA SILVA DO May 01, 2018 07:19
[2018-05-01 07:42] LABS: ALBUMIN 2.5 GM/DL (3.2-4.5); CREATININE SERUM 1.23 MG/DL (0.60-1.30); MAGNESIUM 2.2 MG/DL (1.8-2.4); PHOSPHORUS 3.3 MG/DL (2.3-4.7); POTASSIUM 3.8 MMOL/L (3.6-5.0); TOTAL PROTEIN 5.4 GM/DL (6.4-8.2)
[2018-05-01] MEDS ORDERED: VANCOMYCIN INJECTION 1,750 MG in NS IV 500 ML 500 ML IV NR (08:00)
[2018-05-01] MEDS ORDERED: EPINEPHrine INJECTION 1 MG/ML AMP INJ ONE (08:00)
[2018-05-01] MEDS ORDERED: LIDOCAINE PF 1% 2 ML AMP INJ ONE (08:00)
[2018-05-01] MEDS ORDERED: LIDOCAINE JELLY 2% (XYLOCAINE) 30 ML TUBE TOP ONE (08:00)
[2018-05-01] MEDS ORDERED: 0.9% SODIUM CHLORIDE PF INJ 10 ML VIAL IV ONE (08:00)
[2018-05-01] MEDS ORDERED: VANCOMYCIN 1500 MG/NS 500 ML IVPB IV NR ×2 (08:00)
[2018-05-01] MEDS ORDERED: LIDOCAINE PF 2% 5 ML (XYLOCAINE) VIAL INJ ONE (08:00)
[2018-05-01 08:28] LABS: BILIRUBIN,URINE NEGATIVE (NEGATIVE); CLARITY,URINE CLEAR; COLOR,URINE YELLOW; GLUCOSE, URINE (UA) NEGATIVE (NEGATIVE); KETONES,URINE NEGATIVE (NEGATIVE); LEUKOCYTE ESTERASE ,URINE 1+ (NEGATIVE); NITRITE,URINE NEGATIVE (NEGATIVE); PH,URINE 6 (5-9); PROTEIN,URINE 1+ (NEGATIVE); UROBILINOGEN,URINE 1 MG/DL (NORMAL)
[2018-05-01 08:43] LABS: BACTERIA,URINE NEGATIVE /HPF; SQUAMOUS EPITHELIAL CELL,UR RARE /HPF; WBC,URINE 0-2 /HPF
--- NOTE | 2018-05-01 08:44 | Pre-Op Note & Conscious Sedat ---
Pre-Operative Progress Note H&P Reviewed The H&P was reviewed, patient examined and no changes noted. Date H&P Reviewed: May 01, 2018 Time H&P Reviewed: 08:43 Conscious Sedation Pre-Proced Time Reviewed: 08:43 ASA Class: 3 Airway Mallampati Classification: (huslia appropriate class) I. II. III, IV Lungs Heart ASA score ASA 1: a normal healthy patient ASA 2: a patient with a mild systemic disease (mid diabetes, controlled hypertension, obesity ASA 3: a patient with a severe systemic disease that limits activity (angina , COPD, prior Myocardial infarction) ASA 4: a patient with an incapacitating disease that is a constant threat to life (CHF, renal failure) ASA 5: a moribund patient not expected to survive 24 hrs. (ruptured aneurysm) ASA 6: a declared brain patient whose organs are being harvested. For emergent operations, add the letter E after the classification Grade 2 Sedation Plan: Analgesia, Amnesia, Plan communicated to team members, Discussed options with patient/fam, Discussed risks with patient/fam Note The patient is an appropriate candidate to undergo the planned procedure, sedation, and anesthesia. The patient immediately re-assessed prior to indication. CANDI DA SILVA DO May 01, 2018 08:44
--- NOTE | 2018-05-01 08:54 | PM & R (SOAP) Progress Note ---
Subjective This was a face to face visit with the patient. Date Seen by Provider: May 01, 2018 Time Seen by Provider: 08:00 Subjective/Events-last exam Patient was seen in his room this AM Discussed case with RN and DR Munoz.Pneumonia worsening.DR Munoz suspects aspiration and fluid overload.To have bonchoscopy today Therapies placed on hold due to patients declining medical status and pending procedure for today Review of Systems Pulmonary: Dyspnea Neurological: Weakness Objective Physician Exam Last Set of Vital Signs Vital Signs Date Time Temp Pulse Resp B/P (MAP) Pulse Ox O2 Delivery O2 Flow Rate FiO2 05/01/18 05:16 99.0 72 16 122/67 (85) 95 Nasal Cannula 3.00 04/30/18 16:56 28 Capillary Refill : I&O Intake and Output 05/01/18 00:00 Intake Total 1100 ml Balance 1100 ml Intake Oral 1100 ml # Voids 4 # Bowel Movements 2 General: Alert, Cooperative, No Acute Distress HEENT: Atraumatic, PERRLA, EOMI, Mucous Memb Moist/[place], Other (Dysphagia dysarthria ) Neck: Supple, No JVD Lungs: Clear to Auscultation, Other (Decreased breath sounds) Heart: Normal S1, Normal S2, Other (Systolic murmur at the left sternal border) Abdomen: Normal Bowel Sounds, Soft, No Tenderness Extremities: No Clubbing, No Cyanosis, No Edema Skin: No Rashes, No Breakdown Neuro: Other (Can SLR bilayeral with Left arm still weak) Psych/Mental Status: Mental Status NL, Mood NL Results Lab Data Laboratory Tests 04/28/18 10:12: Glucometer 203H 04/28/18 16:02: Glucometer 205H 04/28/18 20:17: Glucometer 125H 04/29/18 05:15: Glucometer 63L 04/29/18 05:49: Glucometer 67L 04/29/18 11:02: Glucometer 159H 04/29/18 16:30: Glucometer 108 04/29/18 20:33: Glucometer 182H 04/30/18 06:43: Glucometer 110 04/30/18 10:56: Glucometer 165H 04/30/18 15:58: Glucometer 262H 04/30/18 20:02: Glucometer 169H 05/01/18 04:25: Glucometer 147H 05/01/18 06:55: White Blood Count 10.7, Red Blood Count 3.29L, Hemoglobin 9.2L, Hematocrit 28L, Mean Corpuscular Volume 84, Mean Corpuscular Hemoglobin 28, Mean Corpuscular Hemoglobin Concent 33, Red Cell Distribution Width 17.5H, Platelet Count 384, Mean Platelet Volume 9.6, Neutrophils (%) (Auto) 81H, Lymphocytes (%) (Auto) 9L , Monocytes (%) (Auto) 9, Eosinophils (%) (Auto) 1, Basophils (%) (Auto) 0, Neutrophils # (Auto) 8.6H, Lymphocytes # (Auto) 1.0, Monocytes # (Auto) 1.0, Eosinophils # (Auto) 0.1, Basophils # (Auto) 0.0, Sodium Level 135, Potassium Level 3.8, Chloride Level 100, Carbon Dioxide Level 27, Anion Gap 8, Blood Urea Nitrogen 34H, Creatinine 1.23, Estimat Glomerular Filtration Rate 58, BUN/ Creatinine Ratio 28, Glucose Level 130H, Lactic Acid Level 1.04, Calcium Level 8.0L, Corrected Calcium 9.2, Phosphorus Level 3.3, Magnesium Level 2.2, Total Bilirubin 1.0, Aspartate Amino Transf (AST/SGOT) 32, Alanine Aminotransferase ( ALT/SGPT) 24, Alkaline Phosphatase 62, B-Type Natriuretic Peptide 1290.1H, Total Protein 5.4L, Albumin 2.5L 05/01/18 08:00: Urine Color YELLOW, Urine Clarity CLEAR, Urine pH 6, Urine Specific Gabriels 1.020, Urine Protein 1+H, Urine Glucose (UA) NEGATIVE, Urine Ketones NEGATIVE, Urine Nitrite NEGATIVE, Urine Bilirubin NEGATIVE, Urine Urobilinogen 1, Urine Leukocyte Esterase 1+H, Urine RBC (Auto) NEGATIVE, Urine RBC NONE, Urine WBC 0-2 , Urine Squamous Epithelial Cells RARE, Urine Crystals NONE, Urine Bacteria NEGATIVE, Urine Casts NONE, Urine Mucus NEGATIVE, Urine Culture Indicated NO Assessment/Plan Assessment and Plan RT cva with Left HP Dysphagia Pneumonia Chronic A FIB CAD Depression improved with med DM meds adjusted Insomnia improved Constipation treated Plan Hold on therapy today Bronchoscopy today F/U with DR Mac-Patient may need to go to medical floor post procedure for closer monitoring. Will f/u with staff Co-Morbidities that are continuing to impact the rehab process: (include details ) EMMY JULIEN MD May 01, 2018 08:54
[2018-05-01] MEDS: APIXABAN 5 MG (ELIQUIS) TABLET PO SCH (09:00)
[2018-05-01] MEDS: inSUlin DETERMIR 1 UNIT/0.01 ML (LEVEMIR) CHARGE PER UNIT SQ SCH (09:00)
[2018-05-01] MEDS: FAMOTIDINE 20 MG (PEPCID) TABLET PO SCH (09:00)
[2018-05-01] MEDS: SENNA W/DOCUSATE (SENOKOT S) TABLET PO SCH (09:00)
[2018-05-01] MEDS: CLOPIDOGREL 75 MG (PLAVIX) TABLET PO SCH (09:00)
[2018-05-01] MEDS ORDERED: NS IV 500 ML 500 ML ONE (09:11)
[2018-05-01] MEDS ORDERED: MIDAZOLAM 2 MG/2 ML (VERSED) VIAL ONE ×4 (09:11)
[2018-05-01] MEDS ORDERED: fentaNYL INJECTION 100 MCG/2 ML AMP ONE (09:11)
--- NOTE | 2018-05-01 09:56 | Physical Therapy Progress Note ---
Therapy Progress Note Patient on hold this morning from therapist due to medical testing. CAMMY BLACK PT May 01, 2018 09:56
--- NOTE | 2018-05-01 10:34 | Occ Therapy Progress Note ---
Therapy Progress Note Patient on hold this morning from therapy due to medical testing. Pt transferred to ICU after procedure. JIMMY DHILLON May 01, 2018 10:34
--- NOTE | 2018-05-01 10:46 | Pulmonary Procedures ---
Pulmonary Procedures Date of Procedure Date of Service: May 01, 2018 Bronch Bronchoscopy with bronchoalveolar lavage (BAL), transbronchial washes Forcep Bx and, brushes of EMMANUEL . Preop DX Aspiration pneumonia Postop DX: EMMANUEL foreign body Complications: small amount of bleeding After informed consent obtained and formal time out pt was sedated using Fentanyl and Versed. Bronchoscope was advanced through the nare and vocal cords. 1% lidocaine was used to anesthetize vocal cords, epiglottis, nick, and left/right main stem bronchus. An anatomical tour was undertaken down to the segmental bronchi bilaterally. EMMANUEL foreign body noted.. From the EMMANUEL a bronchoalveolar lavage (BAL), transbronchial washes Forcep bx, and, brushes were obtained. Pt tolerated procedure well. No complications noted. Stat CXR is pending. CANDI DA SILVA DO May 01, 2018 10:46
[2018-05-01] MEDS ORDERED: NS IV 500 ML 500 ML IV SCH (14:30)
[2018-05-01] MEDS ORDERED: MIDAZOLAM 2 MG/2 ML (VERSED) VIAL IVP ONE (14:30)
[2018-05-01] MEDS ORDERED: fentaNYL INJECTION 100 MCG/2 ML AMP IVP ONE (14:30)
[2018-05-01] MEDS ORDERED: VANCOMYCIN 1250 MG/NS 250 ML IVPB IV SCH ×2 (20:00)
[2018-05-02] MEDS ORDERED: TROUGH ORDER-PHARMACY XX NR (07:00)
[2018-05-02 07:13] LABS: PHOSPHORUS 5.6 MG/DL (2.3-4.7)
[2018-05-02 07:22] LABS: VANCOMYCIN,TROUGH 23.3 UG/ML (10.0-20.0)
--- NOTE | 2018-05-04 08:36 | Therapy Team Discharge Summary ---
Therapy Discharge Summary Discharge Recommendations Date of Discharge May 01, 2018 at 10:22 Therapy D/C Recommendations: Home w/ Family Support, Occupational Therapy Home Care, Scheduled Assistance, Other, See Comments (Skilled ST at the SNF.) Physical Therapy Patient came to rehab following a CVA. Upon evaluation patient performed bed mobility mostly with mod assist, supine <-> sit with mod assist, sit to stand with mod assist, stand pivot transfer max assist, car transfer max assist, no ambulation at that time. Patient has been performing bed mobility and transfer training, balance and endurance training, functional strengthening, gait training, and education. Patient has made some progress but has not met any of his residential goals. Now, patient performs bed mobility with min/mod assist, transfers with mod assist, ambulates 20-40' with a hemiwalker with mod assist, and can propel a manual wheelchair 150' with SBA. Patient has been transferred to ICU for medical reasons and will be discharged from PT at this time. Occupational Therapy Decreased Activ Tolerance, Decreased UE Strength, Dependent Transfers, Impaired Bed Mobility, Impaired Coordination, Impaired Funct Balance, Impaired I ADL's, Impaired Self-Care Skills, Restricted Funct UE ROM PT Automatic Teller Machine Servicer Goals Automatic Teller Machine Servicer Goals PT Fdc Goals Time Frame: Apr 16, 2018 Transfers (B,C,W/C) (FIM): 4 Roll Left to Right (QC): 3 Sit to Lying (QC): 3 Lying-Sitting on Side/Bed(QC): 3 Sit to Stand (QC): 3 Chair/Ptc-qu-Fnwvi Xfer(QC): 3 Car Transfer (QC): 3 Gait (FIM): 2 Distance: 50' Walk 10 feet (QC): 3 Walk 10ft-Uneven Surface(QC): 3 Walk 50ft with 2 Turns (QC): 3 Gait Level of Assist: 4 Gait Assistive Device: Cane Large Base Quad Wheelchair (FIM): 6 Distance: 200' Wheel 50 feet with 2 turns (QC: 6 OT Automatic Teller Machine Servicer Goals Fdc Goals Time Frame: Apr 23, 2018 Eating (FIM): 6 (continue goal) Eating (QC): 6 Oral Hygiene (QC): 6 Grooming(FIM): 6 (Met at wheelchair level.) Bathing(FIM): 5 (continue goal) Shower/Bathe Self (QC): 5 Upper Body Dressing(FIM): 5 (continue goal) Upper Body Dressing (QC): 5 Lower Body Dressing(FIM): 5 (continue goal) Lower Body Dressing (QC): 5 On/Off Footwear (QC): 5 Toileting(FIM): 6 (continue goal) Toileting Hygiene (QC): 6 Transfers (B,C,W/C) (FIM): 6 (continue goal) Toilet/Commode Transfer(FIM): 6 (continue gol) Toilet/Commode Transfer (QC): 6 Shower Transfer(FIM): 5 (continue goal) Additional Goals: 1-Demonstrate ADL Tasks, 2-Verbalize Understanding, 3- ImproveStrength/Sukhdeep 1=Demonstrate adherence to instructed precautions during ADL tasks. 2=Patient will verbalize/demonstrate understanding of assistive devices/ modifications for ADL. 3=Patient will improve strength/tolerance for activity to enable patient to perform ADL's. Speech Automatic Teller Machine Servicer Goals Automatic Teller Machine Servicer Goals This is effective 04/16/2018: 1. Pt will tolerate regular diet with thin liquids with no s/s of aspiration. Goal not met as pt has been very fatigued recently and swallow musculature is weak as well and will not prevent aspiration of thin liquids. Time Frame: 2 weeks CAMMY BLACK PT May 04, 2018 08:36
--- NOTE | 2018-05-05 09:16 | Therapy Team Discharge Summary ---
Therapy Discharge Summary Discharge Recommendations Date of Discharge Therapy D/C Recommendations: Other, See Comments Occupational Therapy Pt. was seen on rehab to increase functional level for all ADLs. Pt. had began to make progress, but sustained a change in medical status. Pt. was discharged to ICU where he did eventually . PT Custodial Goals Sole Blacker Goals PT Sole Blacker Goals Time Frame: Apr 16, 2018 Transfers (B,C,W/C) (FIM): 4 Roll Left to Right (QC): 3 Sit to Lying (QC): 3 Lying-Sitting on Side/Bed(QC): 3 Sit to Stand (QC): 3 Chair/Cdp-vj-Cgkby Xfer(QC): 3 Car Transfer (QC): 3 Gait (FIM): 2 Distance: 50' Walk 10 feet (QC): 3 Walk 10ft-Uneven Surface(QC): 3 Walk 50ft with 2 Turns (QC): 3 Gait Level of Assist: 4 Gait Assistive Device: Cane Large Base Quad Wheelchair (FIM): 6 Distance: 200' Wheel 50 feet with 2 turns (QC: 6 OT Custodial Goals Sole Blacker Goals Time Frame: Apr 23, 2018 Eating (FIM): 6 (not met) Eating (QC): 6 (not met) Oral Hygiene (QC): 6 (not met) Grooming(FIM): 6 (not met) Bathing(FIM): 5 (not met) Shower/Bathe Self (QC): 5 (not met) Upper Body Dressing(FIM): 5 (not met) Upper Body Dressing (QC): 5 (not met) Lower Body Dressing(FIM): 5 (not met) Lower Body Dressing (QC): 5 (not met) On/Off Footwear (QC): 5 (not met) Toileting(FIM): 6 (not met) Toileting Hygiene (QC): 6 (not met) Transfers (B,C,W/C) (FIM): 6 (not met) Toilet/Commode Transfer(FIM): 6 (not met) Toilet/Commode Transfer (QC): 6 (not met) Shower Transfer(FIM): 5 (not met) Additional Goals: 1-Demonstrate ADL Tasks, 2-Verbalize Understanding, 3- ImproveStrength/Sukhdeep 1=Demonstrate adherence to instructed precautions during ADL tasks. 2=Patient will verbalize/demonstrate understanding of assistive devices/ modifications for ADL. 3=Patient will improve strength/tolerance for activity to enable patient to perform ADL's. Speech Sole Blacker Goals Custodial Goals This is effective 04/16/2018: 1. Pt will tolerate regular diet with thin liquids with no s/s of aspiration. Goal not met as pt has been very fatigued recently and swallow musculature is weak as well and will not prevent aspiration of thin liquids. Time Frame: 2 weeks TIRSO VAZQUEZ OT May 05, 2018 09:16
--- NOTE | 2018-05-20 04:11 | DISCHARGE SUMMARY ---
DATE OF SERVICE: 05/01/2018 HISTORY OF PRESENT ILLNESS: The patient is a 73-year-old male with a past medical history significant for AFib, not on anticoagulation as well as mild type 2 diabetes mellitus who presented to ED on 03/21/2018 to [facility] in [place], [place] with acute right-sided embolic CVA. Brain CT showed prior lacunar infarct and brain MRI showed multiple acute right bihemispheric strokes. MRA of the head and neck showed no critical stenosis. He was started on heparin drip and then converted over to aspirin and statin. There was concern about starting him on oral anticoagulation as he had a retinal hemorrhage in the past. On 01/21/2018, he was switched to Eliquis with no complications. He continued on Eliquis, amiodarone, Lipitor and aspirin. He also had elevated troponin on admission and felt to have a non-ST elevation RI. Cardiology was consulted. Echo showed an ejection fraction of 40%. He had a cardiac catheterization on 03/24/2018 that was unremarkable. He was placed on Rocephin for UTI; then switched over to Levaquin. He was continued on his home dose of Levemir for his type 2 diabetes mellitus. A new lung mass was seen on CT from [facility] [place]. The patient is to have followup CT chest in two months. PCP is Dr. Burleson. The patient was referred to inpatient rehabilitation unit for ongoing stroke rehabilitation and medical care. He has a left hemiparesis and he is on a modified diet for dysphagia and he has dysarthria as well. He was seen by neurology as well while in [place]. He had been independent prior to this. PAST MEDICAL HISTORY: Atrial fibrillation, type 2 diabetes mellitus. MEDICAL COURSE: The patient was followed by Dr. Carlin and Dr. Burleson while on rehab unit as well as other hospitalist. He was followed by cardiology. He developed a fever and dropping O2 sats and he was seen by Dr. Munoz, pulmonology. A chest x-ray revealed pneumonia. He was treated for this. On the rehab unit he had a gradual decline with decreasing sats and he was transferred to ICU and then to medical floor. It is my understanding that he eventually at this facility, but not on the rehab unit. WBC on 05/01/2018 was 10.7, H and H 9.2/28, platelet count 384 K. Chemistry on 05/01/2018 showed BUN elevated at 34, creatinine 1.23, blood glucose 130, calcium 8.0, albumin at 2.5, total protein 5.4, phosphorus 5.6 elevated on 05/02/2018. UA was negative on 05/01/2018, temperature was 99 on 05/01/2018, pulse is 72 irregular, respirations 16, blood pressure 122/67, O2 sat 95% on 3 liters of O2. He was on room air up until 04/25/2018. The patient suffered from depression and medication was provided. The patient had constipation, medication provided. The patient had insomnia, medication provided. The patient had cervical neck pain, medication provided. REHABILITATION COURSE: He was making some progress and having some return in speech and strength on the left. His swallow remained an issue and he remained on a modified diet because of his decline in medical status. He did not maintain all of his goals. He had been upgraded to a dysphagia 3 diet regular but still with nectar thick liquids and it was going to be arranged for him to go to a residential unit as his is not able to care for him at this point. PT NOTES: Upon evaluation, the patient performed bed mobility mostly with mod assist, mod assist for transfers, max assist for car transfers. No ambulation upon admission. He made some progress, but he was not able to maintain his goals. Prior to his decline, he was able to perform bed mobility with min to mod assist, transfers with mod assist, ambulate 20 to 40 feet with a victoriano walker with mod assist and could propel a manual wheelchair on a 50 feet with standby assist. He showed good motivation, but unfortunately he had medical complications as outlined above. OT NOTES: Upon admission, the patient was max assist for upper body dressing and lower body dressing and transfers, min assist for eating, modified diet, min assist for grooming. Prior to becoming ill towards the end of his care, he was modified independent for grooming, but dependent for toileting and max assist for toilet transfers. He had a general decline due to medical issues as outlined above. DISCHARGE INSTRUCTIONS: He is transferred to ICU to the care of Dr. Mac. Continue current modified diet. DISCHARGE MEDICATIONS: Tylenol 650 mg p.o. q.6 hours p.r.n. mild pain, Eliquis 5 mg p.o. b.i.d., Lipitor 40 mg p.o. daily at bedtime, citalopram 30 mg p.o. daily at bedtime, Plavix 75 mg p.o. daily, Pepcid 20 mg p.o. b.i.d., Levemir insulin 8 units subcu daily at bedtime, Levemir 15 units subcu daily. Floranex 1 tablet p.o. before meals t.i.d., loratadine 10 mg p.o. daily, losartan 25 mg p.o. daily, metoprolol 25 mg p.o. daily. DISCHARGE DIAGNOSES: 1. Rehabilitation acute right MCA embolic stroke. 2. Left hemiparesis. 3. Dysphagia. 4. Dysarthria. 5. Persistent atrial fibrillation. 6. Diabetes two with hyperglycemia. 7. Urinary tract infection. 8. Lung mass. 9. Long-term anticoagulants. 10. Aspiration pneumonia. 11. Brigette stomatitis. 12. Hypertension, chronic systolic congestive heart failure. 13. Diabetes 2 with hyperglycemia. 14. Diabetes 2 with polyneuropathy. 15. Diabetes 2 with retinopathy. 16. Abnormal finding lung. 17. Chest pain. 18. Ischemic cardiomyopathy. 19. Pulmonary hypertension. 20. Rheumatic disorder TIMI/AORT/TRA. 21. Gastroesophageal reflux disease. 22. Constipation. 23. Depression. 24. Insomnia. 25. Cervicalgia. CONDITION AT DISCHARGE: Unimproved, but stable for transfer to 4th floor. PROGNOSIS: Apparently, the patient within a week of transfer to the ICU and then medical floor at this facility. Job ID: [id number] DocumentID: [id number] Dictated Date: 05/19/2018 11:48:39 [employer] Date: 05/20/2018 04:09:56 Dictated By: EMMY CARLIN MD
== END 2018-05-01 10:22 | disposition short-term general hospital (02) | DRG 987 ==
LOC: UNDOLOA 05-01 10:23
PROVIDERS: ADMIT Physical Medicine & Rehabilitation; ATTEND Physical Medicine & Rehabilitation
PROC: 0BD88ZX Extraction of Left Upper Lobe Bronchus, Via Natural or Artificial Opening Endoscopic, Diagnostic (ICD-10-PCS; 2018-05-01)
PROC: 0BBG8ZX Excision of Left Upper Lung Lobe, Via Natural or Artificial Opening Endoscopic, Diagnostic (ICD-10-PCS; 2018-05-01)
PROC: 0B9G8ZX Drainage of Left Upper Lung Lobe, Via Natural or Artificial Opening Endoscopic, Diagnostic (ICD-10-PCS; principal; 2018-05-01 09:07)
DX: I69.354 Hemiplegia and hemiparesis following cerebral infarction affecting left non-dominant side (principal); I69.391 Dysphagia following cerebral infarction; I69.322 Dysarthria following cerebral infarction; J69.0 Pneumonitis due to inhalation of food and vomit; I48.1 Persistent atrial fibrillation; N39.0 Urinary tract infection, site not specified; B37.0 Candidal stomatitis; I50.22 Chronic systolic (congestive) heart failure; E11.649 Type 2 diabetes mellitus with hypoglycemia without coma; E11.42 Type 2 diabetes mellitus with diabetic polyneuropathy; E11.319 Type 2 diabetes mellitus with unspecified diabetic retinopathy without macular edema; R91.8 Other nonspecific abnormal finding of lung field; R07.89 Other chest pain; I25.10 Atherosclerotic heart disease of native coronary artery without angina pectoris; I25.5 Ischemic cardiomyopathy; I27.20 Pulmonary hypertension, unspecified; I11.0 Hypertensive heart disease with heart failure; I08.3 Combined rheumatic disorders of mitral, aortic and tricuspid valves; K21.9 Gastro-esophageal reflux disease without esophagitis; K59.09 Other constipation; F32.9 Major depressive disorder, single episode, unspecified; G47.00 Insomnia, unspecified; M54.2 Cervicalgia; Z79.4 Long term (current) use of insulin; Z95.1 Presence of aortocoronary bypass graft; Z95.5 Presence of coronary angioplasty implant and graft; Z79.01 Long term (current) use of anticoagulants
CPT/HCPCS: 36415; 71046; 74230; 80048; 80053; 80202; 81000; 82962; 83605; 83735; 83880; 84100; 84484; 85025; 85027; 87040; 87070; 87077; 87081; 87101; 87106; 87116; 87186; 87205; 93005; 93306; 94640; 94664; 94760

== ENCOUNTER 2018-05-01 10:23 | Inpatient (IN) | payer MEDICARE, OTHER ==
[~2018-05-01] VITALS: Ht 190.5 cm; Wt 98.6 kg
[2018-05-01] VITALS (20 sets, daily range): BP systolic 85–125; BP diastolic 50–76
[~2018-05-01 10:23] MED LIST changes: +ACET325T49 PO; +ACID1TAB PO; +AMIO400T5 PO; +APIX5TAB PO; +ATOR40TA PO; +CETI10TA20 PO; +CITA20TA9 PO; +FAMO20TA5 PO; +FLUT16SP22 NS; +INSU100V5 SQ; +LORA10TA7 PO; +LOSA25TA6 PO; +METO-387 PO
[2018-05-01] MEDS ORDERED: FLUTICASONE NASAL SPRAY (FLONASE) 16 GM BTL NS PRN (13:15)
[2018-05-01] MEDS ORDERED: LORATADINE (CLARITIN) 10 MG TAB PO PRN (13:15)
[2018-05-01] MEDS: RT-ALBUTEROL/IPRATROPIUM 3 ML (DUONEB) VIAL INH SCH ×3 (13:39→22:14)
[2018-05-01] MEDS ORDERED: FUROSEMIDE 40 MG/4 ML INJ (LASIX) IVP NR (14:00)
[2018-05-01] MEDS ORDERED: LIDOCAINE (LIDODERM) 5% PATCH TOP PRN (14:00)
[2018-05-01] MEDS ORDERED: LIDOCAINE UROJET 2% GEL 10 ML PKG TOP ONE (14:00)
[2018-05-01] MEDS ORDERED: PATIENT MAY USE OWN MED,SINGLE MED PO SCH (14:00)
[2018-05-01] MEDS ORDERED: DICLOFENAC 1% GEL 100 GM (VOLTAREN) TUBE TOP PRN (14:00)
[2018-05-01] MEDS ORDERED: LOPERAMIDE 2 MG (IMODIUM) CAP PO PRN (14:00)
[2018-05-01] MEDS ORDERED: ACETAMINOPHEN 325 MG TABLET PO PRN (14:00)
[2018-05-01] MEDS ORDERED: AMMONIUM LACTATE 12% TP PRN (14:15)
[2018-05-01] MEDS ORDERED: LIDODERM PATCH REMOVAL TP PRN (14:15)
--- NOTE | 2018-05-01 15:48 | Diagnostic Imaging Report ---
INDICATION: Status post bronchoscopy. TIME OF EXAMINATION: 02:15 p.m. COMPARISON: Correlation is made with prior chest from one day earlier. FINDINGS: Changes of median sternotomy are identified. There are extensive infiltrates perihilar and upper lobes bilaterally with patchy infiltrates bilateral lower lobes. Infiltrates have worsened since yesterday, particularly on the right where infiltrates are much more consolidated. No pneumothorax is seen status post bronchoscopy. IMPRESSION: 1. No evidence of pneumothorax. 2. Worsening pulmonary infiltrates when compared with examination one day earlier. Dictated by: Dictated on workstation # [id number]
[2018-05-01] MEDS: PIPERACILLIN SODIUM/TAZOBACTAM 4.5 GM in NS (IVPB) 100 ML IV SCH ×2 (16:18→23:59)
[2018-05-01] MEDS: LACTOBACILLUS ACIDOPHILUS (PROBIOTIC) CAPSULE PO SCH (16:19)
[2018-05-01] MEDS: inSUlin ASPART (NovoLOG) 1 UNIT/0.01 ML (CHARGE PER UNIT) SC SCH ×2 (17:32→20:54)
--- NOTE | 2018-05-01 18:20 | Progress Note-Hospitalist ---
Subjective HPI/CC On Admission Date Seen by Provider: May 01, 2018 Time Seen by Provider: 13:00 Due to continued intermittent low-grade fever and x-ray findings revealing increased patchy alveolar infiltrates especially worse in the right upper lobe area pulmonary was consulted and the patient underwent bronchoscopy with BAL. Because of the CVA and coronary disease with past stent placement the patient had been on triple therapy and this was continued. He had what appeared to be possible food material per Dr. Munoz in the left upper lobe area and attempting to grasp food material there was some resultant bleeding. For this reason the patient is being transferred to the intensive care unit for closer monitoring considering that his respiratory status was marginal to begin with. No other reported abnormalities are noted. Upon my arrival the patient was on facemask oxygen and did have diffuse wheezing with coarse rhonchi throughout. His cough however was still relatively dry without hemoptysis and no production was noted. He reported fatigue denied chest pain or shortness of breath at rest although he appeared to be in mild respiratory distress. Objective Exam Vital Signs Vital Signs Date Time Temp Pulse Resp B/P (MAP) Pulse Ox O2 Delivery O2 Flow Rate FiO2 05/01/18 16:19 99.0 96 High Flow N/C 6.00 05/01/18 16:00 92 16 125/76 (92) Capillary Refill : General Appearance: Chronically ill, Mild Distress Respiratory: Chest Non Tender, Accessory Muscle Use, Other (Coarse rhonchi and bibasilar rales were noted with mild end expiratory wheeze.) Cardiovascular: Irregularly Irregular, Other (Her toes difficult to appreciate over respiratory congestion) Gastrointestinal: Normal Bowel Sounds, No Organomegaly, No Pulsatile Mass, Non Tender, Soft Extremity: Normal Capillary Refill, Other (2+ edema of the left the mid tibia 1 + on the right) Skin: Pallor Results/Procedures Lab Patient resulted labs reviewed. Assessment/Plan Assessment and Plan Assess & Plan/Chief Complaint 1. 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 Considering splenic infarct likely embolic as well we did discuss the risk of anticoagulant therapy and recurrent hemorrhage versus benefits. In my estimation benefits significantly outweigh risk as she would be highly likely to continue to have embolic symptoms. The downside would be retinal hemorrhages would likely lead to blindness in the affected eye. Patient agrees with continuing anticoagulant therapy.No change in vision reported. . 2. Known significant coronary artery disease with mild LV systolic dysfunction continue baby aspirin daily. 3. Type II diabetes mellitus insulin requiring erratic control due to erratic by mouth intake will decrease Levemir to 10 unitsin the morning and 5 units at night. If his appetite increases however his blood sugar levels will go up and will likely be increasing insulin continue to monitor. 4. Thrush resolved will DC nystatin.. 5. Chronic atrial fibrillation currently rate controlled. 6. Reported urinary tract infection with resolution on repeat UA.. 7. Carinal fullness on CT scan possible adenopathy considering the patient's frailty and multiple medical symptoms we will see about obtaining PET scan as an outpatient. 8. Depression ndogenous as well as reactive likely contributing to poor appetite will increase citalopram to 40 mg at at bedtime and see if this does not help out insomnia as wellwhich is likely due to depression. .9. Known chronic systolic heart failure secondary to ischemic cardiomyopathy BNP level was elevated at 1200 heart failure may be contributing to declining respiratory status will give a dose of IV Lasix and continue to monitor in intensive care unit for the possible need for mechanical ventilation. 10. Progressive pulmonary infiltrate brought findings suspicious for aspiration nothing by mouth status except for pills with applesauce as long as the patient is alert and in the upright position discussed with staff. As long as there is improvement in respiratory status will likely need at least temporary PEG tube placement.. Critical Care Critical Care: Critically Ill Patient Clinical Quality Measures DVT/VTE Risk/Contraindication: Risk Factor Score Per Nursin RFS Level Per Nursing on Admit: 4+=Very High BEVERLY FERNANDES MD May 01, 2018 18:20
[2018-05-01] MEDS ORDERED: meTOprolol 5 MG/5 ML (LOPRESSOR) VIAL ONE (19:46)
[2018-05-01] MEDS ORDERED: meTOprolol 5 MG/5 ML (LOPRESSOR) VIAL IV NR (20:00)
[2018-05-01] MEDS ORDERED: METOCLOPRAMIDE INJ 10 MG/2 ML (REGLAN) IVP ONE (20:00)
[2018-05-01] MEDS ORDERED: VANCOMYCIN INJECTION 1,250 MG in NS (IVPB) 250 ML IV SCH (20:00)
[2018-05-01] MEDS: ATORVASTATIN 40 MG (LIPITOR) TABLET PO SCH (20:22)
[2018-05-01] MEDS: POLYETHYLENE GLYCOL 17 GM (MIRALAX) PACK PO SCH (20:23)
[2018-05-01] MEDS: SENNA W/DOCUSATE (SENOKOT S) TABLET PO SCH (20:24)
[2018-05-01] MEDS ORDERED: diphenhydrAMINE 50 MG/ML INJ (BENADRYL) ONE (20:32)
[2018-05-01] MEDS: traZODone 50 MG (DESYREL) TAB PO SCH (20:39)
[2018-05-01] MEDS: FAMOTIDINE 20 MG (PEPCID) TABLET PO SCH (20:52)
[2018-05-01] MEDS: inSUlin DETERMIR 1 UNIT/0.01 ML (LEVEMIR) CHARGE PER UNIT SQ SCH (20:54)
[2018-05-01] MEDS ORDERED: diphenhydrAMINE 50 MG/ML INJ (BENADRYL) IVP ONE (21:00)
[2018-05-02] VITALS (22 sets, daily range): BP systolic 93–126; BP diastolic 44–70
[2018-05-02] MEDS: RT-ALBUTEROL/IPRATROPIUM 3 ML (DUONEB) VIAL INH SCH ×6 (02:30→21:57)
[2018-05-02 04:04] LABS: BASOPHILS % (AUTO) 0 % (0-10); EOSINOPHILS % (AUTO) 0 % (0-10); HEMATOCRIT 32 % (40-54); LYMPHOCYTES # (AUTO) 0.6 X 10^3 (1.0-4.0); LYMPHOCYTES % (AUTO) 5 % (12-44); MEAN CORPUSCULAR HEMOGLOBIN 27 PG (25-34); MEAN CORPUSCULAR HGB CONC 32 G/DL (32-36); MEAN CORPUSCULAR VOLUME 84 FL (80-99); MEAN PLATELET VOLUME 9.6 FL (7.4-10.4); MONOCYTES # (AUTO) 0.7 X 10^3 (0.0-1.0); MONOCYTES % (AUTO) 5 % (0-12); NEUTROPHILS % (AUTO) 91 % (42-75); PLATELET COUNT 446 10^3/uL (130-400); RED BLOOD COUNT 3.77 10^6/uL (4.35-5.85); RED CELL DISTRIBUTION WIDTH 18.4 % (10.0-14.5); WHITE BLOOD COUNT 14.3 10^3/uL (4.3-11.0)
[2018-05-02 04:27] LABS: CREATININE SERUM 1.54 MG/DL (0.60-1.30); MAGNESIUM 2.3 MG/DL (1.8-2.4); PHOSPHORUS 5.3 MG/DL (2.3-4.7); POTASSIUM 4.5 MMOL/L (3.6-5.0)
[2018-05-02 04:52] LABS: ANISOCYTOSIS SLIGHT; BURR CELLS MODERATE; LYMPHOCYTES % (MANUAL) 4 %; MONOCYTES % (MANUAL) 6 %; NEUTROPHILS % (MANUAL) 90 %
[2018-05-02] MEDS: inSUlin ASPART (NovoLOG) 1 UNIT/0.01 ML (CHARGE PER UNIT) SC SCH ×4 (05:17→21:43)
[2018-05-02] MEDS: POTASSIUM CL 10MEQ/50ML IVPB 50 ML IV SCH (05:18)
[2018-05-02] MEDS: MAGNESIUM 1 GM/100 ML IVPB 100 ML IV SCH (05:18)
[2018-05-02] MEDS: KCL 20 MEQ TAB (K-DUR) PO SCH (05:18)
--- NOTE | 2018-05-02 06:38 | Pulmonary Progress Note ---
Subjective Time Seen by Provider: 06:39 Subjective/Events-last exam No hemoptysis noted. Sepsis Event Evaluation Height, Weight, BMI Height: 6'3.00" Weight: 185lbs. 1.0oz. 83.999779hv; 22.2 BMI Method:Stated Exam Exam Vital Signs Date Time Temp Pulse Resp B/P (MAP) Pulse Ox O2 Delivery O2 Flow Rate FiO2 05/02/18 06:22 77 14 98/55 (69) 100 High Flow N/C 4.00 05/02/18 05:00 76 16 99/68 (78) 100 High Flow N/C 4.00 05/02/18 04:00 79 16 104/54 (71) 100 High Flow N/C 5.00 05/02/18 04:00 100 High Flow N/C 4.00 05/02/18 04:00 97.9 100 High Flow N/C 4.00 05/02/18 03:00 70 12 99/53 (68) 100 High Flow N/C 5.00 05/02/18 02:30 97 High Flow N/C 5.00 05/02/18 02:00 72 15 98/64 (75) 100 High Flow N/C 5.00 05/02/18 01:00 73 05/02/18 01:00 76 14 95/53 (67) 100 High Flow N/C 5.00 05/02/18 00:00 85 17 99/45 (63) 98 High Flow N/C 5.00 05/02/18 00:00 98 High Flow N/C 5.00 05/02/18 00:00 98.0 05/01/18 23:00 83 16 102/50 (67) 100 High Flow N/C 5.00 05/01/18 22:00 95 21 85/54 (64) 100 High Flow N/C 5.00 05/01/18 21:00 90 32 89/58 (68) 81 High Flow N/C 5.00 05/01/18 21:00 94 High Flow N/C 5.00 05/01/18 20:00 99.9 05/01/18 20:00 95 26 125/50 (75) High Flow N/C 5.00 05/01/18 20:00 92 High Flow N/C 6.00 9/14/18 19:00 112 21 98/68 (78) 86 High Flow N/C 6.00 05/01/18 19:00 112 05/01/18 18:26 93 High Flow N/C 6.00 05/01/18 18:00 98 30 95/63 (74) 94 High Flow N/C 6.00 05/01/18 17:00 105 24 115/71 (86) 97 High Flow N/C 6.00 05/01/18 16:19 99.0 96 High Flow N/C 6.00 05/01/18 16:19 OxyMask 6.00 05/01/18 16:00 92 16 125/76 (92) 96 High Flow N/C 8.00 05/01/18 15:00 88 17 116/63 (80) 96 High Flow N/C 8.00 05/01/18 14:45 92 19 117/72 (87) 96 High Flow N/C 8.00 05/01/18 14:30 107 22 116/69 (85) 97 High Flow N/C 8.00 05/01/18 14:15 98 18 111/69 (83) 96 OxyMask 6.00 05/01/18 14:00 92 18 98/54 (69) 94 OxyMask 6.00 05/01/18 13:41 97 OxyMask 10.00 05/01/18 13:00 103 33 110/76 (87) 95 OxyMask 6.00 05/01/18 13:00 103 05/01/18 12:01 120/60 (80) 05/01/18 12:00 76 15 105/59 (74) 99 OxyMask 6.00 05/01/18 12:00 98/60 (73) 05/01/18 11:45 77 15 105/59 (74) 98 OxyMask 6.00 05/01/18 11:30 73 14 98 OxyMask 6.00 05/01/18 11:15 65 15 92/58 (69) 99 OxyMask 6.00 05/01/18 11:00 82 16 98/53 (68) 97 OxyMask 6.00 05/01/18 11:00 OxyMask 6.00 05/01/18 11:00 98.6 05/01/18 11:00 68 05/01/18 10:45 92 18 109/54 (72) 87 OxyMask 3.00 05/01/18 10:30 OxyMask 3.00 I & O 05/02/18 07:00 Intake Total 750 ml Output Total 1350 ml Balance -600 ml Height & Weight Height: 6'3.00" Weight: 185lbs. 1.0oz. 83.036834ir; 22.2 BMI Method:Stated General Appearance: Chronically ill, Mild Distress Respiratory: Chest Non Tender, Accessory Muscle Use, Other (Coarse rhonchi and bibasilar rales were noted with mild end expiratory wheeze.) Cardiovascular: Irregularly Irregular, Other (Her toes difficult to appreciate over respiratory congestion) Extremity: Normal Capillary Refill, Other (2+ edema of the left the mid tibia 1 + on the right) Neurologic/Psychiatric: Alert Skin: Normal Color, Warm/Dry, Pallor Results Lab Laboratory Tests 05/02/18 03:42 Assessment/Plan Assessment/Plan Right CVA with left sided hemiparesis dysphagia with aspiration pneumonia s/p bronchoscopy -Await results -Anticoagulation on hold secondary to bronchoscopy and possible PEG tube placement this week -Pt had foreign body noted on bronchoscopy Bilateral pneumonia with probable pulmonary edema Acute renal failure -Monitor -Currently IVF are hep locked. BNP is pending CAD hx DM II Afib - controlled CANDI DA SILVA DO May 02, 2018 06:38
[2018-05-02] MEDS: LACTOBACILLUS ACIDOPHILUS (PROBIOTIC) CAPSULE PO SCH ×3 (06:58→17:40)
[2018-05-02] MEDS ORDERED: TROUGH ORDER-PHARMACY XX ONE (07:00)
[2018-05-02] MEDS: SENNA W/DOCUSATE (SENOKOT S) TABLET PO SCH ×2 (08:27→19:55)
[2018-05-02] MEDS: FAMOTIDINE 20 MG (PEPCID) TABLET PO SCH ×2 (08:35→21:44)
[2018-05-02] MEDS: NS IV 1000 ML 1,000 ML IV SCH ×2 (09:50→14:22)
[2018-05-02] MEDS: PIPERACILLIN SODIUM/TAZOBACTAM 4.5 GM in NS (IVPB) 100 ML IV SCH ×2 (09:50→16:57)
[2018-05-02] MEDS: inSUlin DETERMIR 1 UNIT/0.01 ML (LEVEMIR) CHARGE PER UNIT SQ SCH ×2 (09:56→21:44)
--- NOTE | 2018-05-02 10:12 | Diagnostic Imaging Report ---
Indication: Dyspnea. Comparison: 05/01/2018. Findings: Bilateral perihilar and basilar heterogeneous consolidations have not substantially changed. Central vascular indistinctness persists. No pleural effusion or pneumothorax. Stable obscuration of the cardiac mediastinal silhouette status post CABG. Impression: No substantial change in diffuse pulmonary opacities which may be on the basis of pulmonary edema, ARDS, pulmonary hemorrhage or multifocal pneumonia. Dictated by: Dictated on workstation # [id number]
[2018-05-02] MEDS ORDERED: FUROSEMIDE 40 MG/4 ML INJ (LASIX) IVP ONE (10:15)
--- NOTE | 2018-05-02 10:20 | Progress Note-Hospitalist ---
Subjective HPI/CC On Admission Date Seen by Provider: May 02, 2018 Time Seen by Provider: 09:45 Due to continued intermittent low-grade fever and x-ray findings revealing increased patchy alveolar infiltrates especially worse in the right upper lobe area pulmonary was consulted and the patient underwent bronchoscopy with BAL. Because of the CVA and coronary disease with past stent placement the patient had been on triple therapy and this was continued. He had what appeared to be possible food material per Dr. Munoz in the left upper lobe area and attempting to grasp food material there was some resultant bleeding. For this reason the patient is being transferred to the intensive care unit for closer monitoring considering that his respiratory status was marginal to begin with. No other reported abnormalities are noted. Upon my arrival the patient was on facemask oxygen and did have diffuse wheezing with coarse rhonchi throughout. His cough however was still relatively dry without hemoptysis and no production was noted. He reported fatigue denied chest pain or shortness of breath at rest although he appeared to be in mild respiratory distress. Subjective/Events-last exam Patient is sitting up is awake and alert and appears much better than his chest x-ray would predict. He has a lot of questions about the possibility of a PEG tube placement. It appears that he has been aspirating and has diffuse infiltrates consistent with both pulmonary edema and/or aspiration.. He has yet to have swallowing studies but I suspect we could get that on Friday. He is currently on Zosyn. Grant has been held Review of Systems Pulmonary: Dyspnea, Cough Neurological: Weakness Focused Exam Lactate Level 05/02/18 06:48: Lactic Acid Level 2.36*H 05/02/18 09:05: Lactic Acid Level 3.08*H Lactic Acid Level Laboratory Tests Test 05/02/18 06:48 05/02/18 09:05 Lactic Acid Level 2.36 MMOL/L (0.50-2.00) *H 3.08 MMOL/L (0.50-2.00) *H Objective Exam Vital Signs Vital Signs Date Time Temp Pulse Resp B/P (MAP) Pulse Ox O2 Delivery O2 Flow Rate FiO2 05/02/18 09:35 Nasal Cannula 1.00 05/02/18 08:35 100 05/02/18 08:15 98.6 05/02/18 07:00 81 14 Capillary Refill : General Appearance: Chronically ill HEENT: Other (Left facial droop) Neck: Non Tender, JVD Respiratory: No Accessory Muscle Use, No Respiratory Distress, Crackles, Rales Cardiovascular: Systolic Murmur, Irregularly Irregular Gastrointestinal: Normal Bowel Sounds, No Organomegaly, No Pulsatile Mass, Non Tender, Soft Rectal: Deferred Back: Normal Inspection, No CVA Tenderness Extremity: Other (Beginning to move left arm better) Neurologic/Psychiatric: Alert, Depressed Affect Skin: Pallor Results/Procedures Lab Laboratory Tests 05/02/18 03:42 Patient resulted labs reviewed. Imaging: Reviewed Imaging Films, Reviewed Imaging Report Assessment/Plan Assessment and Plan Assess & Plan/Chief Complaint History of aspiration pneumonia further swallowing studies to be done probably on Friday with consideration for PEG tube placement as patient improves his strength and receives coaching on swallowing techniques on Zosyn History of CVA Atrial fibrillation anticoagulation being held secondary to recent lung biopsy Metabolic acidosis Elevated BNP with diffuse infiltrates and chest x-ray will give Lasix again 1 today Renal insufficiency stable Critical Care Critical Care: Critically Ill Patient Clinical Quality Measures DVT/VTE Risk/Contraindication: Risk Factor Score Per Nursin RFS Level Per Nursing on Admit: 4+=Very High OLIVER MARK MD May 02, 2018 10:20 am
[2018-05-02] MEDS ORDERED: NS 1000 ML IV BAG IV ONE (10:30)
--- NOTE | 2018-05-02 13:15 | Cardiology Progress Note ---
Cardiology SOAP Progress Note Subjective: No cardiac complaints. Objective: I&O/Vital Signs 05/02/18 05/02/18 05/02/18 05/02/18 03:00 04:00 04:00 04:00 Temp 97.9 Pulse 70 79 Resp 12 16 B/P (MAP) 99/53 (68) 104/54 (71) Pulse Ox 100 100 100 100 O2 Delivery High Flow N/C High Flow N/C High Flow N/C High Flow N/C O2 Flow Rate 5.00 4.00 4.00 5.00 05/02/18 05/02/18 05/02/18 05/02/18 05:00 06:22 07:00 07:00 Pulse 76 77 81 81 Resp 16 14 14 B/P (MAP) 99/68 (78) 98/55 (69) 112/53 (72) Pulse Ox 100 100 99 O2 Delivery High Flow N/C High Flow N/C High Flow N/C O2 Flow Rate 4.00 4.00 4.00 05/02/18 05/02/18 05/02/18 05/02/18 07:01 08:15 08:35 09:35 Temp 98.6 B/P (MAP) Pulse Ox 100 O2 Delivery High Flow N/C Nasal Cannula High Flow N/C Nasal Cannula O2 Flow Rate 3.00 2.00 2.00 1.00 05/02/18 05/02/18 05/02/18 05/02/18 10:47 12:00 12:50 12:50 Temp 98.0 Pulse 82 Resp 21 B/P (MAP) 101/50 (67) Pulse Ox 99 97 100 O2 Delivery High Flow N/C Nasal Cannula Nasal Cannula High Flow N/C O2 Flow Rate 1.00 1.00 1.00 1.00 05/02/18 05/02/18 05/02/18 05/02/18 13:00 13:00 14:00 14:26 Pulse 73 73 73 Resp 19 20 B/P (MAP) 108/51 (70) 104/60 (75) Pulse Ox 98 96 O2 Delivery Nasal Cannula Nasal Cannula Room Air O2 Flow Rate 1.00 1.00 05/02/18 00:00 Intake Total 650 ml Output Total 1200 ml Balance -550 ml Weight (Pounds): 185 Weight (Ounces): 1.0 Weight (Calculated Kilograms): 83.313774 Constitutional: No appears stated age; AAO x 3; No apparent distress; PERRL; No well-developed; well-nourished; No other Respiratory: No accessory muscle use, No respiratory distress, No chest tender , No chest expansion is symmetric; chest is bilaterally symmetric; No lungs clear to percussion; lungs clear to auscultation; No crackles, No rhonchi, No rales, No stridor, No wheezing, No pleural rub, No other Cardiovascular: No regular rate-rhythm; irregularly irregular; No extra beats, No parasternal heave is noted, No JVD, No edema, No bradycardia, No tachycardia , No point of maximal impulse, No cardiac thrills are palpable; S1 and S2; No gallop/S3, No gallop/S4, No diastolic murmur, No systolic murmur, No friction rub, No click, No other Gastrointestional: No tender, No soft, No round, No distended, No pulsatile mass, No organomegaly, No guarding, No rebound, No tenderness, No hernia, No mass, No audible bowel sounds, No abnormal bowel sounds, No abdominal bruits, No spleenomegaly, No other Extremities: No normal range of motion, No non-tender, No normal inspection, No pedal edema, No calf tenderness, No normal capillary refill, No pelvis stable , No calf tenderness, No inflammation, No pedal edema, No slow capillary refill , No swelling, No other, No abrasion, No clubbing, No cyanosis, No ecchymosis, No laceration, No no lower extremity edema bilateral, No significant edema, No tenderness, No wound Neurologic/Psychiatric: no motor/sensory deficits, alert, normal mood/affect, oriented x 3 Results/Procedures: Labs Laboratory Tests 05/01/18 17:05: Glucometer 133H 05/01/18 20:47: Glucometer 128H 05/02/18 03:42: White Blood Count 14.3H, Red Blood Count 3.77L, Hemoglobin 10.0L, Hematocrit 32L , Mean Corpuscular Volume 84, Mean Corpuscular Hemoglobin 27, Mean Corpuscular Hemoglobin Concent 32, Red Cell Distribution Width 18.4H, Platelet Count 446H, Mean Platelet Volume 9.6, Neutrophils (%) (Auto) 91H, Lymphocytes (%) (Auto) 5L , Monocytes (%) (Auto) 5, Eosinophils (%) (Auto) 0, Basophils (%) (Auto) 0, Neutrophils # (Auto) 13.0H, Lymphocytes # (Auto) 0.6L, Monocytes # (Auto) 0.7, Eosinophils # (Auto) 0.0, Basophils # (Auto) 0.0, Neutrophils % (Manual) 90, Lymphocytes % (Manual) 4, Monocytes % (Manual) 6, Anisocytosis SLIGHT, [place] Cells MODERATE, Sodium Level 135, Potassium Level 4.5, Chloride Level 101, Carbon Dioxide Level 17L, Anion Gap 17H, Blood Urea Nitrogen 39H, Creatinine 1.54H, Estimat Glomerular Filtration Rate 44, BUN/Creatinine Ratio 25, Glucose Level 169H, Calcium Level 8.0L, Phosphorus Level 5.3H, Magnesium Level 2.3 05/02/18 06:48: Lactic Acid Level 2.36*H, B-Type Natriuretic Peptide 1812.6H 05/02/18 09:05: Lactic Acid Level 3.08*H 05/02/18 11:52: Glucometer 231H A/P: Assessment/Dx: This is a 73-year-old gentleman who has history of splenic artery thrombosis with infarct. He then had left-sided weakness and was noted to have right- sided CVA without evidence of significant extracranial vascular disease. He underwent cardiac catheterization on March 24 which revealed mild hypokinesis with an EF of 40 percent. 3 patent grafts disease was noted in the PDA distal to the RCA graft and also some disease in the OM. No PCI was done. Medical management. He was transferred to our hospital for inpatient rehabilitation. He has some residual left sided weakness. The patient also has history of diabetes with an organ damage. He has history of persistent atrial fibrillation and is on Eliquis. Aspiration, Mild bleeding during bronchoscopy, Frequent thromboembolic event, Persistent Atrial fibrillation, CAD, CABG, Ischemic cardiomyopathy, Aortic stenosis, Chest pain Plan: Aspiration: Plan is for a PEG. Aspiration found on bronchoscopy. CAD/CABG: Recent coronary angiography at [facility] showed patent grafts with distal disease not am and able to PCI. Medical therapy was recommended. Recurrent CVA/thromboembolic events: On Eliquis. Persistent atrial fibrillation on amiodarone and Eliquis. Also on diltiazem and beta sammie. Ischemic cardiomyopathy: On metoprolol. Thank you for your consultation. Please call me if you have any questions. Malcolm House MD, FACP, FACC, FSCAI, FHRS, CCDS Interventional Cardiology Cardiac Electrophysiology Vascular Medicine and Endovascular Interventions Focused Exam Lactate Level 05/02/18 06:48: Lactic Acid Level 2.36*H 05/02/18 09:05: Lactic Acid Level 3.08*H Boby HOUSE MD May 02, 2018 13:15
[2018-05-02] MEDS ORDERED: TROUGH ORDER-PHARMACY XX NR (15:00)
[2018-05-02] MEDS ORDERED: NS IV 1000 ML 1,000 ML IV SCH (17:45)
[2018-05-02] MEDS: POLYETHYLENE GLYCOL 17 GM (MIRALAX) PACK PO SCH (19:55)
[2018-05-02] MEDS: ATORVASTATIN 40 MG (LIPITOR) TABLET PO SCH (21:44)
[2018-05-02] MEDS: traZODone 50 MG (DESYREL) TAB PO SCH (21:44)
[2018-05-02] MEDS ORDERED: LACTATED RINGERS 1,000 ML IV ONE (21:45)
[2018-05-02] MEDS ORDERED: SODIUM BICARBONATE 8.4% VIAL 150 MEQ in D5W 1000 ML IV SOLUTION 1,000 ML IV SCH (21:45)
[2018-05-02 22:07] LABS: CALCIUM 7.9 MG/DL (8.5-10.1); CREATININE SERUM 2.04 MG/DL (0.60-1.30)
[2018-05-02 22:30] LABS: POTASSIUM 4.1 MMOL/L (3.6-5.0)
[2018-05-02 22:43] LABS: ABG BASE EXCESS -3.1 MMOL/L (-2.5-2.5); ABG OXYGEN SATURATION 35 % (94-100); ABG PCO2 41 MMHG (35-45); ABG TCO2 22.9 MMOL/L (21.0-31.0)
[2018-05-02 22:49] LABS: ABG PH 7.34 (7.37-7.43); ABG PO2 28 MMHG (79-93)
[2018-05-02 22:50] LABS: ALLENS TEST POSITIVE; INSPIRED O2 N; VENTILATOR NO
[2018-05-02 22:51] LABS: PATIENT TEMP 98.8
[2018-05-02] MEDS ORDERED: SODIUM BICARB 8.4% 50 MEQ/50 ML (ABBOTT) SYR ONE (23:30)
[2018-05-02] MEDS ORDERED: D5 NS 1000 ML IV SOLUTION 1,000 ML IV ONE (23:31)
[2018-05-03] VITALS (25 sets, daily range): BP systolic 104–138; BP diastolic 36–76
[2018-05-03 00:10] LABS: ABG OXYGEN SATURATION 66 % (94-100); ABG PCO2 38 MMHG (35-45); ABG PH 7.36 (7.37-7.43); ABG PO2 41 MMHG (79-93); ABG TCO2 21.7 MMOL/L (21.0-31.0); ALLENS TEST POSITIVE; INSPIRED O2 100%; VENTILATOR NO
[2018-05-03 00:11] LABS: PATIENT TEMP 98.7
[2018-05-03] MEDS: PIPERACILLIN SODIUM/TAZOBACTAM 4.5 GM in NS (IVPB) 100 ML IV SCH ×3 (00:40→15:54)
[2018-05-03] MEDS: LACTATED RINGERS 1,000 ML IV SCH ×4 (00:40→20:29)
[2018-05-03] MEDS ORDERED: LIDOCAINE 1% INJ 20 ML 20 ML VIAL ONE (01:20)
[2018-05-03] MEDS: RT-ALBUTEROL/IPRATROPIUM 3 ML (DUONEB) VIAL INH SCH ×6 (01:28→21:52)
[2018-05-03 02:46] LABS: ABG BASE EXCESS -3.6 MMOL/L (-2.5-2.5); ABG OXYGEN SATURATION 100 % (94-100); ABG PCO2 35 MMHG (35-45); ABG PH 7.39 (7.37-7.43); ABG PO2 177 MMHG (79-93); ABG TCO2 21.6 MMOL/L (21.0-31.0)
--- NOTE | 2018-05-03 03:11 | Anesthesia-Procedure Note ---
Procedures/Interventions Procedure Start/Stop/Diagnosis Date of Procedure: May 03, 2018 Start Time: 02:45 Referring Physician: Tammy Preprocedural Diagnosis: Respiratory Failure Brief History Called to start A Line in ICU 8. Brief hx obtained. Pt was a diffiult stick. No radial pulses palpable or viewed on U/S Rt brachial A-line started under sterile technique x3 attempts. Good wave form present. Catheter secured with op site and tape. ASA 4 Stop Time: 03:00 Postprocedural Diagnosis: Resp Failure Arterial Line Arterial Line Catheter: 22G Type: Brachial Location: Right Procedure: prepped, draped in sterile fashion, good wave-form was obtained, patient tolerated procedure well, no immediate complications, post procedure area cleaned, post procedure dressing applied ZOEY PÉREZ CRNA May 03, 2018 03:11
[2018-05-03 03:13] LABS: ALLENS TEST POSITIVE; INSPIRED O2 100% NONBREATHER; PATIENT TEMP 98.7; VENTILATOR NO
--- NOTE | 2018-05-03 03:18 | Consultation ---
History of Present Illness History of Present Illness Patient Consulted On(nathaly/time) 05/03/18 03:11 Date Seen by Provider: May 03, 2018 Time Seen by Provider: 03:11 History of Present Illness Consult requested by DR. Bailey for central line placement. Patient is a 73 year old male who was in ARU. He had aspiration pneumonia, and had bronchoscopy by Dr. Munoz. Patient today has had low grade fever. Patient systolic blood pressure did drop for a short period of time into 70's systolic and responded to fluids. Urine output has been low. 10 mL in [address] Bailey would like central line placed. Patient on NRB. No family at bedside. Allergies and Home Medications Allergies Coded Allergies: Iodinated Contrast- Oral and IV Dye (Unverified Allergy, Mild, RASH, ) Home Medications Acetaminophen 325 Mg Tablet, 650 MG PO Q6HR PRN for PAIN-MILD Prescribed by: EMMY JULIEN on 04/24/18743 Amiodarone HCl 400 Mg Tablet, 200 MG PO BID, (Reported) TAKES 1/2 (400MG) TABLET Apixaban 5 Mg Tablet, 5 MG PO BID Prescribed by: EMMY JULIEN on 04/24/18743 Atorvastatin Calcium 40 Mg Tablet, 40 MG PO HS Prescribed by: EMMY JULIEN on 04/24/18743 Citalopram Hydrobromide 20 Mg Tablet, 20 MG PO HS Prescribed by: EMMY JULINE on 04/24/18743 Clopidogrel Bisulfate 75 Mg Tablet, 75 MG PO DAILY Prescribed by: EMMY JULIEN on 04/24/18743 Famotidine 20 Mg Tablet, 20 MG PO BID Prescribed by: EMMY JULIEN on 04/24/18743 Fluticasone Propionate 16 Gm [place].susp, 2 SPRAY NS BID, (Reported) Insulin Detemir 100 Unit/1 Ml Insuln.pen, 25 UNIT SQ Q12H, (Reported) Insulin Determir 1,000 Units/10 Ml Soln, 8 UNIT SQ HS Prescribed by: EMMY JULIEN on 04/24/18743 Insulin Determir 1,000 Units/10 Ml Soln, 15 UNIT SQ DAILY Prescribed by: EMMY JULIEN on 04/24/18743 Insulin Lispro 100 Unit/1 Ml Insuln.pen, 30 UNITS SC AC, (Reported) L. Acidophilus/Bulgaricus 1 Each Tablet, 1 TAB.CHEW PO AC Prescribed by: EMMY JULIEN on 04/24/18743 Loratadine 10 Mg Tablet, 10 MG PO DAILY Prescribed by: EMMY JULIEN on 04/24/18743 Losartan Potassium 25 Mg Tablet, 25 MG PO DAILY Prescribed by: EMMY JULIEN on 04/24/18743 Metoprolol Succinate 25 Mg Tab.er.24h, 25 MG PO DAILY Prescribed by: EMMY JULIEN on 04/24/18743 Patient Home Medication List Home Medication List Reviewed: Yes Past Tdmptbu-Nytigj-Kzubhw Hx Patient Social History Alcohol Use: Denies Use Recreational Drug Use: No Smoking Status: Never a Smoker 2nd Hand Smoke Exposure: No Recent Foreign Travel: No Contact w/Someone Who Travel: No Recent Infectious Disease Expo: No Recent Hopitalizations: Yes Physical Abuse Screen: No Sexual Abuse: No Immunizations Up To Date Tetanus Booster (TDap): Less than 5yrs Date of Pneumonia Vaccine: Aug 18, 2015 Seasonal Allergies Seasonal Allergies: No Surgeries History of Surgeries: Yes Surgeries: Bladder Surgery, CABG, Coronary Stent, Eye Surgery, Prostatectomy Respiratory History of Respiratory Disorde: No (New diagnosis of aspiration pneumonia) Cardiovascular History of Cardiac Disorders: Yes Cardiac Disorders: Atrial Fibrillation, Coronary Artery Disease, Hypertension, Valvular Heart Disease Neurological History of Neurological Disord: Yes Neurological Disorders: Neuropathy Reproductive System Hx Reproductive Disorders: No HIV/AIDS: No Genitourinary History of Genitourinary Disor: Yes Genitourinary Disorders: Prostate Problems Gastrointestinal History of Gastrointestinal Di: Yes Gastrointestinal Disorders: Gastroesophageal Reflux, Chronic Constipation, Chronic Diarrhea Musculoskeletal History of Musculoskeletal Dis: No Endocrine History of Endocrine Disorders: Yes Endocrine Disorders: Diabetes, Insulin dep HEENT History of HEENT Disorders: Yes HEENT Disorders: Cataract Loss of Vision: Denies Hearing Impairment: Hard of Hearing Cancer History of Cancer: No Psychosocial History of Psychiatric Problem: 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) Behavioral Health Disorders: Depression Integumentary History of Skin or Integumenta: No Skin/Integumentary Disorders: Recent Skin Changes Blood Transfusions History of Blood Disorders: No Adverse Reaction to a Blood Tr: No Family Medical History Significant Family History: Diabetes, Stroke Family Medial History: Diabetes mellitus 19 MOTHER, G8 SISTER FH: breast cancer 19 MOTHER, FH: emphysema 19 FATHER, FH: prostate cancer 19 FATHER, FH: stroke son Myocardial infarction son Review of Systems-General Constitutional: no symptoms reported EENTM: no symptoms reported Respiratory: other (shortness of breath) Cardiovascular: no symptoms reported Gastrointestinal: no symptoms reported Genitourinary: no symptoms reported Musculoskeletal: no symptoms reported Skin: no symptoms reported Psychiatric/Neurological: No Symptoms Reported Physical Exam-General Problems Physical Exam Vital Signs Vital Signs - First Documented 05/01/18 05/01/18 05/02/18 10:30 10:45 23:15 Pulse 92 Resp 18 B/P (MAP) 109/54 (72) Pulse Ox 87 O2 Delivery OxyMask O2 Flow Rate 3.00 FiO2 100 Capillary Refill : General Appearance: mild distress HEENT: PERRL/EOMI Neck: supple Respiratory: other (slightly labored breating on NRB) Cardiovascular: irregularly irregular Gastrointestinal: non tender, soft Back: no CVA tenderness Extremities: swelling Neurologic/Psychiatric: alert, oriented x 3 Skin: cool Lymphatic: no adenopathy Data Review Labs Laboratory Tests 05/02/18 03:42: White Blood Count 14.3H, Red Blood Count 3.77L, Hemoglobin 10.0L, Hematocrit 32L , Mean Corpuscular Volume 84, Mean Corpuscular Hemoglobin 27, Mean Corpuscular Hemoglobin Concent 32, Red Cell Distribution Width 18.4H, Platelet Count 446H, Mean Platelet Volume 9.6, Neutrophils (%) (Auto) 91H, Lymphocytes (%) (Auto) 5L , Monocytes (%) (Auto) 5, Eosinophils (%) (Auto) 0, Basophils (%) (Auto) 0, Neutrophils # (Auto) 13.0H, Lymphocytes # (Auto) 0.6L, Monocytes # (Auto) 0.7, Eosinophils # (Auto) 0.0, Basophils # (Auto) 0.0, Neutrophils % (Manual) 90, Lymphocytes % (Manual) 4, Monocytes % (Manual) 6, Anisocytosis SLIGHT, [place] Cells MODERATE, Sodium Level 135, Potassium Level 4.5, Chloride Level 101, Carbon Dioxide Level 17L, Anion Gap 17H, Blood Urea Nitrogen 39H, Creatinine 1.54H, Estimat Glomerular Filtration Rate 44, BUN/Creatinine Ratio 25, Glucose Level 169H, Calcium Level 8.0L, Phosphorus Level 5.3H, Magnesium Level 2.3 05/02/18 06:48: Lactic Acid Level 2.36*H, B-Type Natriuretic Peptide 1812.6H 05/02/18 09:05: Lactic Acid Level 3.08*H 05/02/18 11:52: Glucometer 231H 05/02/18 15:14: Vancomycin Level Trough 21.4H 05/02/18 16:56: Glucometer 250H 05/02/18 19:43: Glucometer 322H 05/02/18 20:00: Lactic Acid Level 3.43*H 05/02/18 21:45: Sodium Level 134L, Potassium Level 4.1, Chloride Level 102, Carbon Dioxide Level 18L, Anion Gap 14, Blood Urea Nitrogen 52H, Creatinine 2.04H, Estimat Glomerular Filtration Rate 32, BUN/Creatinine Ratio 25, Glucose Level 300H, Lactic Acid Level 2.90*H, Calcium Level 7.9L, B-Type Natriuretic Peptide 1658.3H 05/02/18 22:40: Blood Gas Puncture Site LEFT BRACHIAL, Blood Gas Patient Temperature 98.8, Arterial Blood pH 7.34*L, Arterial Blood Partial Pressure CO2 41, Arterial Blood Partial Pressure O2 28*L, Arterial Blood HCO3 22L, Arterial Blood Total CO2 22.9, Arterial Blood Oxygen Saturation 35L, Arterial Blood Base Excess -3.1L , Randy Test POSITIVE, Blood Gas Ventilator Setting NO, Blood Gas Inspired Oxygen N 05/02/18 23:55: Blood Gas Puncture Site LT RADIAL, Blood Gas Patient Temperature 98.7, Arterial Blood pH 7.36L, Arterial Blood Partial Pressure CO2 38, Arterial Blood Partial Pressure O2 41L, Arterial Blood HCO3 21L, Arterial Blood Total CO2 21.7, Arterial Blood Oxygen Saturation 66L, Arterial Blood Base Excess -4.0L, Randy Test POSITIVE, Blood Gas Ventilator Setting NO, Blood Gas Inspired Oxygen 100% 05/03/18 02:40: Assessment/Plan Assessment/Plan Assessment/Plan aspiration pneumonia History of CVA Atrial fibrillation anticoagulation being held at this time Renal insufficiency stable 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 On Plavix and Eliquis which last took [address] left femoral vein central line which i recommend taking out within 3 days and have picc line placed if still need access. If PEG tube needed please notify me and continue to hold anticoagulation/ antiplatelets Will sign off at this time, call if needed. Clinical Quality Measures DVT/VTE Risk/Contraindication: Risk Factor Score Per Nursin RFS Level Per Nursing on Admit: 4+=Very High MATEUS SHEEHAN DO May 03, 2018 03:18
[2018-05-03] MEDS ORDERED: diphenhydrAMINE 50 MG/ML INJ (BENADRYL) IV ONE (03:45)
[2018-05-03] MEDS ORDERED: diphenhydrAMINE 50 MG/ML INJ (BENADRYL) ONE ×2 (03:45→20:36)
[2018-05-03 04:22] LABS: BASOPHILS % (AUTO) 0 % (0-10); EOSINOPHILS % (AUTO) 0 % (0-10); HEMATOCRIT 29 % (40-54); HEMOGLOBIN 9.7 G/DL (13.3-17.7); LYMPHOCYTES # (AUTO) 0.8 X 10^3 (1.0-4.0); LYMPHOCYTES % (AUTO) 6 % (12-44); MEAN CORPUSCULAR HEMOGLOBIN 27 PG (25-34); MEAN CORPUSCULAR HGB CONC 33 G/DL (32-36); MEAN CORPUSCULAR VOLUME 82 FL (80-99); MEAN PLATELET VOLUME 9.7 FL (7.4-10.4); MONOCYTES # (AUTO) 0.8 X 10^3 (0.0-1.0); MONOCYTES % (AUTO) 6 % (0-12); NEUTROPHILS # (AUTO) 11.5 X 10^3 (1.8-7.8); NEUTROPHILS % (AUTO) 87 % (42-75); PLATELET COUNT 554 10^3/uL (130-400); RED BLOOD COUNT 3.56 10^6/uL (4.35-5.85); RED CELL DISTRIBUTION WIDTH 17.9 % (10.0-14.5); WHITE BLOOD COUNT 13.2 10^3/uL (4.3-11.0)
[2018-05-03 04:46] LABS: CALCIUM 7.4 MG/DL (8.5-10.1); CREATININE SERUM 2.01 MG/DL (0.60-1.30); MAGNESIUM 2.2 MG/DL (1.8-2.4); PHOSPHORUS 4.2 MG/DL (2.3-4.7); POTASSIUM 3.8 MMOL/L (3.6-5.0)
[2018-05-03] MEDS: POTASSIUM CL 10MEQ/50ML IVPB 50 ML IV SCH (05:07)
[2018-05-03] MEDS: MAGNESIUM 1 GM/100 ML IVPB 100 ML IV SCH (05:07)
[2018-05-03] MEDS: KCL 20 MEQ TAB (K-DUR) PO SCH (05:07)
[2018-05-03 05:08] LABS: ABG BASE EXCESS -3.1 MMOL/L (-2.5-2.5); ABG OXYGEN SATURATION 99 % (94-100); ABG PCO2 35 MMHG (35-45); ABG PH 7.39 (7.37-7.43); ABG PO2 118 MMHG (79-93); ABG TCO2 22.1 MMOL/L (21.0-31.0); ALLENS TEST POSITIVE; INSPIRED O2 50% VAPO; PATIENT TEMP 98.8; VENTILATOR NO
--- NOTE | 2018-05-03 05:37 | Pulmonary Progress Note ---
Subjective Time Seen by Provider: 05:52 Subjective/Events-last exam Pt has been hypoxic and hypotensive throughout the night. Sepsis Event Evaluation Height, Weight, BMI Height: 6'3.00" Weight: 185lbs. 1.0oz. 83.144947gl; 22.2 BMI Method:Stated Focused Exam Lactate Level 05/02/18 09:05: Lactic Acid Level 3.08*H 05/02/18 20:00: Lactic Acid Level 3.43*H 05/02/18 21:45: Lactic Acid Level 2.90*H Exam Exam Vital Signs Date Time Temp Pulse Resp B/P (MAP) Pulse Ox O2 Delivery O2 Flow Rate FiO2 05/03/18 04:00 100 Vapotherm 30.00 50 05/03/18 04:00 65 18 110/36 (60) 100 Vapotherm 50.00 30.00 05/03/18 04:00 Vapotherm 30.00 50 05/03/18 03:02 Non Rebreather 15.00 100 05/03/18 03:00 64 29 122/46 (71) 100 Non Rebreather 100.00 05/03/18 02:56 81 24 135/50 (78) 100 Non Rebreather 100.00 05/03/18 02:25 Non Rebreather 15.00 100 05/03/18 02:00 76 26 100 Non Rebreather 100.00 05/03/18 01:46 Non Rebreather 15.00 100 05/03/18 01:27 Non Rebreather 15.00 100 05/03/18 01:00 75 24 114/76 (89) 100 Room Air 05/03/18 01:00 75 05/03/18 00:00 98.7 05/03/18 00:00 97 Room Air 05/03/18 00:00 78 14 104/52 (69) 100 Room Air 05/02/18 23:30 86 24 126/70 (88) 100 Non Rebreather 100.00 05/02/18 23:15 Non Rebreather 15.00 100 05/02/18 23:00 75 23 100/67 (78) 99 Room Air 05/02/18 22:00 74 20 106/56 (73) 98 Room Air 05/02/18 21:57 98 Room Air 05/02/18 21:00 81 23 98/55 (69) 97 Room Air 05/02/18 20:00 77 23 100/53 (69) 98 Room Air 05/02/18 20:00 98 Room Air 05/02/18 19:38 98.8 84 22 97/57 (70) 99 Room Air 05/02/18 19:00 87 05/02/18 19:00 76 28 97/57 (70) 97 Room Air 05/02/18 18:30 82 32 93/46 (62) 98 Room Air 05/02/18 18:22 96 Room Air 05/02/18 17:00 82 41 98/44 (62) 100 Room Air 05/02/18 16:57 100 Room Air 05/02/18 16:00 85 17 97/53 (68) 97 Room Air 05/02/18 15:00 81 20 98/56 (70) 97 Room Air 05/02/18 14:43 95 Room Air 05/02/18 14:26 Room Air 05/02/18 14:00 73 20 104/60 (75) 96 Nasal Cannula 1.00 05/02/18 13:00 73 05/02/18 13:00 73 19 108/51 (70) 98 Nasal Cannula 1.00 05/02/18 12:50 100 High Flow N/C 1.00 05/02/18 12:50 98.0 Nasal Cannula 1.00 05/02/18 12:00 82 21 101/50 (67) 97 Nasal Cannula 1.00 05/02/18 10:47 99 High Flow N/C 1.00 05/02/18 09:35 Nasal Cannula 1.00 05/02/18 08:35 100 High Flow N/C 2.00 05/02/18 08:15 98.6 Nasal Cannula 2.00 05/02/18 07:01 High Flow N/C 3.00 05/02/18 07:00 81 14 112/53 (72) 99 High Flow N/C 4.00 05/02/18 07:00 81 05/02/18 06:22 77 14 98/55 (69) 100 High Flow N/C 4.00 I & O 05/03/18 07:00 Intake Total 850 ml Output Total 425 ml Balance 425 ml Height & Weight Height: 6'3.00" Weight: 185lbs. 1.0oz. 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 BP decreased after lasix and Lactic acid increased -Extensive bilateral Pulmonary infiltrates -Zosyn, and vanco -- change vanco to zyvox secondary to kidney function Acute renal failure with metabolic acidosis and decreased UO -Give 1 liter bolus over 2 hrs. -Check CVP monitoring -Pt received IV bicarb last night -Check bladder scan. -Monitor CAD hx DM II Afib - controlled CANDI DA SILVA DO May 03, 2018 05:37
[2018-05-03] MEDS ORDERED: TROUGH ORDER-PHARMACY XX NR (06:00)
[2018-05-03] MEDS ORDERED: LACTATED RINGERS 1,000 ML IV ONE (06:30)
[2018-05-03] MEDS ORDERED: inSUlin ASPART (NovoLOG) 1 UNIT/0.01 ML (CHARGE PER UNIT) ONE (06:44)
[2018-05-03] MEDS: inSUlin ASPART (NovoLOG) 1 UNIT/0.01 ML (CHARGE PER UNIT) SC SCH ×3 (06:49→18:26)
[2018-05-03] MEDS: LINEZOLID IVPB 300 ML IV SCH ×2 (08:37→21:32)
[2018-05-03] MEDS ORDERED: LACTATED RINGERS 1,000 ML IV SCH (08:45)
--- NOTE | 2018-05-03 09:27 | Diagnostic Imaging Report ---
EXAM: Portable erect AP chest at 4:04 a.m. INDICATION: Shortness of breath FINDINGS: The cardiomegaly and the sternotomy wires and surgical clips and the diffuse alveolar/interstitial pulmonary infiltrates seen on the prior exam 05/02/2018 are again evident. Both lung bases do appear somewhat better aerated. The mediastinum is not widened. The osseous structures are intact. IMPRESSION: The appearance of the chest has improved somewhat as the lung bases do seem slightly better aerated than on the prior exam. There are still diffuse alveolar/interstitial pulmonary infiltrates bilaterally however. A followup exam would be recommended for continued study. Dictated by: Dictated on workstation # [id number]
[2018-05-03] MEDS: LACTOBACILLUS ACIDOPHILUS (PROBIOTIC) CAPSULE PO SCH ×3 (09:41→15:32)
[2018-05-03] MEDS: SENNA W/DOCUSATE (SENOKOT S) TABLET PO SCH ×2 (09:41→19:58)
[2018-05-03] MEDS: inSUlin DETERMIR 1 UNIT/0.01 ML (LEVEMIR) CHARGE PER UNIT SQ SCH ×2 (10:12→20:43)
--- NOTE | 2018-05-03 10:21 | Cardiology Progress Note ---
Cardiology SOAP Progress Note Subjective: Looks weak. Objective: I&O/Vital Signs 05/02/18 05/02/18 05/02/18 05/03/18 23:00 23:15 23:30 00:00 Pulse 75 86 78 Resp 23 24 14 B/P (MAP) 100/67 (78) 126/70 (88) 104/52 (69) Pulse Ox 99 100 100 O2 Delivery Room Air Non Rebreather Non Rebreather Room Air O2 Flow Rate 15.00 100.00 FiO2 100 05/03/18 05/03/18 05/03/18 05/03/18 00:00 00:00 01:00 01:00 Temp 98.7 Pulse 75 75 Resp 24 B/P (MAP) 114/76 (89) Pulse Ox 97 100 O2 Delivery Room Air Room Air 05/03/18 05/03/18 05/03/18 05/03/18 01:27 01:46 02:00 02:25 Pulse 76 Resp 26 B/P (MAP) Pulse Ox 100 O2 Delivery Non Rebreather Non Rebreather Non Rebreather Non Rebreather O2 Flow Rate 15.00 15.00 100.00 15.00 FiO2 100 100 100 05/03/18 05/03/18 05/03/18 05/03/18 02:56 03:00 03:02 04:00 Pulse 81 64 Resp 24 29 B/P (MAP) 135/50 (78) 122/46 (71) Pulse Ox 100 100 O2 Delivery Non Rebreather Non Rebreather Non Rebreather Vapotherm O2 Flow Rate 100.00 100.00 15.00 30.00 FiO2 100 50 05/03/18 05/03/18 05/03/18 05/03/18 04:00 04:00 05:00 06:00 Pulse 65 70 75 Resp 18 18 18 B/P (MAP) 110/36 (60) 119/41 (67) 120/48 (72) Pulse Ox 100 100 100 100 O2 Delivery Vapotherm Vapotherm Vapotherm Vapotherm O2 Flow Rate 50.00 30.00 50.00 50.00 30.00 30.00 30.00 FiO2 50 05/03/18 05/03/18 05/03/18 05/03/18 07:00 07:00 07:07 08:00 Pulse 70 70 73 Resp 16 16 B/P (MAP) 112/41 (64) 116/44 (68) Pulse Ox 100 99 100 O2 Delivery Vapotherm Vapotherm Vapotherm O2 Flow Rate 50.00 30.00 50.00 30.00 25.00 FiO2 50 05/03/18 05/03/18 08:10 09:00 Pulse 71 Resp 17 B/P (MAP) 113/44 (67) Pulse Ox 98 94 O2 Delivery Vapotherm Vapotherm O2 Flow Rate 25.00 50.00 25.00 FiO2 50 05/03/18 00:00 Intake Total 1600 ml Output Total 215 ml Balance 1385 ml Weight (Pounds): 186 Weight (Ounces): 1.0 Weight (Calculated Kilograms): 84.273527 Constitutional: No appears stated age; AAO x 3; No apparent distress; PERRL; No well-developed; well-nourished; No other Respiratory: No accessory muscle use, No respiratory distress, No chest tender , No chest expansion is symmetric; chest is bilaterally symmetric; No lungs clear to percussion; lungs clear to auscultation; No crackles, No rhonchi, No rales, No stridor, No wheezing, No pleural rub, No other Cardiovascular: No regular rate-rhythm; irregularly irregular; No extra beats, No parasternal heave is noted, No JVD, No edema, No bradycardia, No tachycardia , No point of maximal impulse, No cardiac thrills are palpable; S1 and S2; No gallop/S3, No gallop/S4, No diastolic murmur, No systolic murmur, No friction rub, No click, No other Gastrointestional: No tender, No soft, No round, No distended, No pulsatile mass, No organomegaly, No guarding, No rebound, No tenderness, No hernia, No mass, No audible bowel sounds, No abnormal bowel sounds, No abdominal bruits, No spleenomegaly, No other Extremities: No normal range of motion, No non-tender, No normal inspection, No pedal edema, No calf tenderness, No normal capillary refill, No pelvis stable , No calf tenderness, No inflammation, No pedal edema, No slow capillary refill , No swelling, No other, No abrasion, No clubbing, No cyanosis, No ecchymosis, No laceration, No no lower extremity edema bilateral, No significant edema, No tenderness, No wound Neurologic/Psychiatric: no motor/sensory deficits, alert, normal mood/affect, oriented x 3 Results/Procedures: Labs Laboratory Tests 05/02/18 11:52: Glucometer 231H 05/02/18 15:14: Vancomycin Level Trough 21.4H 05/02/18 16:56: Glucometer 250H 05/02/18 19:43: Glucometer 322H 05/02/18 20:00: Lactic Acid Level 3.43*H 05/02/18 21:45: Lactic Acid Level 2.90*H, Sodium Level 134L, Potassium Level 4.1, Chloride Level 102, Carbon Dioxide Level 18L, Anion Gap 14, Blood Urea Nitrogen 52H, Creatinine 2.04H, Estimat Glomerular Filtration Rate 32, BUN/Creatinine Ratio 25 , Glucose Level 300H, Calcium Level 7.9L, B-Type Natriuretic Peptide 1658.3H 05/02/18 22:40: Blood Gas Puncture Site LEFT BRACHIAL, Blood Gas Patient Temperature 98.8, Arterial Blood pH 7.34*L, Arterial Blood Partial Pressure CO2 41, Arterial Blood Partial Pressure O2 28*L, Arterial Blood HCO3 22L, Arterial Blood Total CO2 22.9, Arterial Blood Oxygen Saturation 35L, Arterial Blood Base Excess -3.1L , Randy Test POSITIVE, Blood Gas Ventilator Setting NO, Blood Gas Inspired Oxygen N 05/02/18 23:55: Blood Gas Puncture Site LT RADIAL, Blood Gas Patient Temperature 98.7, Arterial Blood pH 7.36L, Arterial Blood Partial Pressure CO2 38, Arterial Blood Partial Pressure O2 41L, Arterial Blood HCO3 21L, Arterial Blood Total CO2 21.7, Arterial Blood Oxygen Saturation 66L, Arterial Blood Base Excess -4.0L, Randy Test POSITIVE, Blood Gas Ventilator Setting NO, Blood Gas Inspired Oxygen 100% 05/03/18 02:40: Blood Gas Puncture Site LEFT FEMORAL, Blood Gas Patient Temperature 98.7, Arterial Blood pH 7.39, Arterial Blood Partial Pressure CO2 35, Arterial Blood Partial Pressure O2 177H, Arterial Blood HCO3 21L, Arterial Blood Total CO2 21.6 , Arterial Blood Oxygen Saturation 100, Arterial Blood Base Excess -3.6L, Randy Test POSITIVE, Blood Gas Ventilator Setting NO, Blood Gas Inspired Oxygen 100% NONBREATHER 05/03/18 04:15: White Blood Count 13.2H, Red Blood Count 3.56L, Hemoglobin 9.7L, Hematocrit 29L , Mean Corpuscular Volume 82, Mean Corpuscular Hemoglobin 27, Mean Corpuscular Hemoglobin Concent 33, Red Cell Distribution Width 17.9H, Platelet Count 554H, Mean Platelet Volume 9.7, Neutrophils (%) (Auto) 87H, Lymphocytes (%) (Auto) 6L , Monocytes (%) (Auto) 6, Eosinophils (%) (Auto) 0, Basophils (%) (Auto) 0, Neutrophils # (Auto) 11.5H, Lymphocytes # (Auto) 0.8L, Monocytes # (Auto) 0.8, Eosinophils # (Auto) 0.0, Basophils # (Auto) 0.0, Sodium Level 135, Potassium Level 3.8, Chloride Level 103, Carbon Dioxide Level 19L, Anion Gap 13, Blood Urea Nitrogen 55H, Creatinine 2.01H, Estimat Glomerular Filtration Rate 33, BUN/ Creatinine Ratio 27, Glucose Level 258H, Calcium Level 7.4L, Phosphorus Level 4.2, Magnesium Level 2.2 05/03/18 05:00: Blood Gas Puncture Site RT ARTLINE, Blood Gas Patient Temperature 98.8, Arterial Blood pH 7.39, Arterial Blood Partial Pressure CO2 35, Arterial Blood Partial Pressure O2 118H, Arterial Blood HCO3 21L, Arterial Blood Total CO2 22.1 , Arterial Blood Oxygen Saturation 99, Arterial Blood Base Excess -3.1L, Randy Test POSITIVE, Blood Gas Ventilator Setting NO, Blood Gas Inspired Oxygen 50% VAPO 05/03/18 07:00: Lactic Acid Level 1.87 A/P: Assessment/Dx: This is a 73-year-old gentleman who has history of splenic artery thrombosis with infarct. He then had left-sided weakness and was noted to have right- sided CVA without evidence of significant extracranial vascular disease. He underwent cardiac catheterization on March 24 which revealed mild hypokinesis with an EF of 40 percent. 3 patent grafts disease was noted in the PDA distal to the RCA graft and also some disease in the OM. No PCI was done. Medical management. He was transferred to our hospital for inpatient rehabilitation. He has some residual left sided weakness. The patient also has history of diabetes with an organ damage. He has history of persistent atrial fibrillation and is on Eliquis. Aspiration, sepsis, Mild bleeding during bronchoscopy, Frequent thromboembolic event, Persistent Atrial fibrillation, CAD, CABG, Ischemic cardiomyopathy, Aortic stenosis, Chest pain Plan: Aspiration: Plan is for a PEG. Aspiration found on bronchoscopy. Patient not willing to get PEG. I tried to convince him. Sepsis, on broad spectrum IV antibiotics. CAD/CABG: Recent coronary angiography at [facility] showed patent grafts with distal disease not am and able to PCI. Medical therapy was recommended. Recurrent CVA/thromboembolic events: On Eliquis. Persistent atrial fibrillation on amiodarone and Eliquis. Also on diltiazem and beta sammie. Ischemic cardiomyopathy: On metoprolol. Thank you for your consultation. Please call me if you have any questions. Malcolm House MD, FACP, FACC, FSCAI, FHRS, CCDS Interventional Cardiology Cardiac Electrophysiology Vascular Medicine and Endovascular Interventions Focused Exam Lactate Level 05/02/18 20:00: Lactic Acid Level 3.43*H 05/02/18 21:45: Lactic Acid Level 2.90*H 05/03/18 07:00: Lactic Acid Level 1.87 Lactic Acid Level Laboratory Tests Test 05/03/18 07:00 Lactic Acid Level 1.87 MMOL/L (0.50-2.00) Boby HOUSE MD May 03, 2018 10:21
--- NOTE | 2018-05-03 10:22 | Progress Note-Hospitalist ---
Subjective HPI/CC On Admission Date Seen by Provider: May 03, 2018 Time Seen by Provider: 09:15 Due to continued intermittent low-grade fever and x-ray findings revealing increased patchy alveolar infiltrates especially worse in the right upper lobe area pulmonary was consulted and the patient underwent bronchoscopy with BAL. Because of the CVA and coronary disease with past stent placement the patient had been on triple therapy and this was continued. He had what appeared to be possible food material per Dr. Munoz in the left upper lobe area and attempting to grasp food material there was some resultant bleeding. For this reason the patient is being transferred to the intensive care unit for closer monitoring considering that his respiratory status was marginal to begin with. No other reported abnormalities are noted. Upon my arrival the patient was on facemask oxygen and did have diffuse wheezing with coarse rhonchi throughout. His cough however was still relatively dry without hemoptysis and no production was noted. He reported fatigue denied chest pain or shortness of breath at rest although he appeared to be in mild respiratory distress. Subjective/Events-last exam Patient appears to be exhausted and sleepiness morning. He complains of a rough night being kept up for a great deal of it. Evidently his blood pressure was dropping overnight and his oxygen saturations are becoming somewhat more difficult to maintain. He did try to drink something and choked on it with aspiration again per nurse's notes. He remains uncertain whether he will have a PEG placed or not. Review of Systems Pulmonary: Dyspnea, Cough Neurological: Weakness Focused Exam Lactate Level 05/02/18 20:00: Lactic Acid Level 3.43*H 05/02/18 21:45: Lactic Acid Level 2.90*H 05/03/18 07:00: Lactic Acid Level 1.87 Lactic Acid Level Laboratory Tests Test 05/03/18 07:00 Lactic Acid Level 1.87 MMOL/L (0.50-2.00) Objective Exam Vital Signs Vital Signs Date Time Temp Pulse Resp B/P (MAP) Pulse Ox O2 Delivery O2 Flow Rate FiO2 05/03/18 09:00 71 17 113/44 (67) 94 Vapotherm 50.00 25.00 05/03/18 08:10 50 05/03/18 00:00 98.7 Capillary Refill : General Appearance: Chronically ill HEENT: Other (Right facial droop) Neck: Non Tender, JVD, Limited Range of Motion Respiratory: Crackles, Decreased Breath Sounds, Rales, Wheezing Cardiovascular: Irregularly Irregular Gastrointestinal: Normal Bowel Sounds, No Organomegaly, No Pulsatile Mass, Non Tender, Soft, Distended Rectal: Deferred Extremity: No Calf Tenderness, Pedal Edema, Swelling Neurologic/Psychiatric: Alert, Depressed Affect, Facial Droop, Motor Weakness ( Left side) Skin: Pallor Results/Procedures Lab Laboratory Tests 05/02/18 21:45 05/03/18 04:15 Patient resulted labs reviewed. Imaging: Reviewed Imaging Films, Reviewed Imaging Report Assessment/Plan Assessment and Plan Assess & Plan/Chief Complaint History of aspiration pneumonia ;further swallowing studies to be done probably on Friday with consideration for PEG tube placement. as patient improves his strength and receives coaching on swallowing techniques it may be that the patient will be able to have the PEG removed. on Zosyn and Zyvox History of CVA Atrial fibrillation anticoagulation being held secondary to recent lung biopsy Metabolic acidosis Elevated BNP with diffuse infiltrates and chest x-ray was given Lasix yesterday with a drop in the blood pressure. Renal insufficiency stable Anasarca secondary to protein calorie malnutrition, and aggressive fluid hydration for sepsis Critical Care Critical Care: Critically Ill Patient Clinical Quality Measures DVT/VTE Risk/Contraindication: Risk Factor Score Per Nursin RFS Level Per Nursing on Admit: 4+=Very High OLIVER MARK MD May 03, 2018 10:22 am
[2018-05-03] MEDS: POLYETHYLENE GLYCOL 17 GM (MIRALAX) PACK PO SCH (19:57)
[2018-05-03] MEDS ORDERED: diphenhydrAMINE 50 MG/ML INJ (BENADRYL) IV PRN (20:45)
[2018-05-03] MEDS: ATORVASTATIN 40 MG (LIPITOR) TABLET PO SCH (20:53)
[2018-05-03] MEDS: traZODone 50 MG (DESYREL) TAB PO SCH (20:53)
[2018-05-03] MEDS ORDERED: FAMOTIDINE 20 MG (PEPCID) TABLET PO SCH (21:00)
[2018-05-04] VITALS (10 sets, daily range): BP systolic 116–156; BP diastolic 57–69
[2018-05-04] MEDS: PIPERACILLIN SODIUM/TAZOBACTAM 4.5 GM in NS (IVPB) 100 ML IV SCH ×2 (00:35→09:35)
[2018-05-04] MEDS: inSUlin ASPART (NovoLOG) 1 UNIT/0.01 ML (CHARGE PER UNIT) SC SCH ×2 (00:43→05:30)
[2018-05-04] MEDS: RT-ALBUTEROL/IPRATROPIUM 3 ML (DUONEB) VIAL INH SCH ×2 (01:56→06:52)
[2018-05-04] MEDS: LACTATED RINGERS 1,000 ML IV SCH (03:38)
[2018-05-04 03:56] LABS: BASOPHILS % (AUTO) 0 % (0-10); EOSINOPHILS % (AUTO) 0 % (0-10); HEMATOCRIT 31 % (40-54); HEMOGLOBIN 10.2 G/DL (13.3-17.7); LYMPHOCYTES # (AUTO) 0.8 X 10^3 (1.0-4.0); LYMPHOCYTES % (AUTO) 5 % (12-44); MEAN CORPUSCULAR HEMOGLOBIN 27 PG (25-34); MEAN CORPUSCULAR HGB CONC 33 G/DL (32-36); MEAN CORPUSCULAR VOLUME 82 FL (80-99); MEAN PLATELET VOLUME 9.3 FL (7.4-10.4); MONOCYTES # (AUTO) 0.9 X 10^3 (0.0-1.0); MONOCYTES % (AUTO) 5 % (0-12); NEUTROPHILS # (AUTO) 14.8 X 10^3 (1.8-7.8); NEUTROPHILS % (AUTO) 90 % (42-75); PLATELET COUNT 606 10^3/uL (130-400); RED BLOOD COUNT 3.82 10^6/uL (4.35-5.85); RED CELL DISTRIBUTION WIDTH 18.4 % (10.0-14.5); WHITE BLOOD COUNT 16.5 10^3/uL (4.3-11.0)
[2018-05-04 04:22] LABS: CALCIUM 7.8 MG/DL (8.5-10.1); CREATININE SERUM 1.86 MG/DL (0.60-1.30); PHOSPHORUS 3.8 MG/DL (2.3-4.7)
[2018-05-04 04:23] LABS: LYMPHOCYTES % (MANUAL) 6 %; MONOCYTES % (MANUAL) 6 %; NEUTROPHILS % (MANUAL) 88 %
[2018-05-04 04:24] LABS: ANISOCYTOSIS MODERATE; ELLIPT/OVALOCYTES SLIGHT; HYPOCHROMASIA SLIGHT; MICROCYTOSIS SLIGHT; POIKILOCYTOSIS MODERATE; POLYCHROMASIA SLIGHT; SCHISTOCYTES SLIGHT; SPHEROCYTES SLIGHT
[2018-05-04 04:25] LABS: CRENATED RBC MARKED
[2018-05-04] MEDS: POTASSIUM CL 10MEQ/50ML IVPB 50 ML IV SCH (05:30)
[2018-05-04] MEDS: KCL 20 MEQ TAB (K-DUR) PO SCH (05:30)
[2018-05-04] MEDS: MAGNESIUM 1 GM/100 ML IVPB 100 ML IV SCH (05:30)
--- NOTE | 2018-05-04 07:19 | Pulmonary Progress Note ---
Subjective Time Seen by Provider: 13:15 Subjective/Events-last exam Pt has no complaints. He wants to go back to rehab. Sepsis Event Evaluation Height, Weight, BMI Height: 6'3.00" Weight: 217lbs. 5.0oz. 98.838414hy; 22.2 BMI Method:Stated Focused Exam Lactate Level 05/02/18 20:00: Lactic Acid Level 3.43*H 05/02/18 21:45: Lactic Acid Level 2.90*H 05/03/18 07:00: Lactic Acid Level 1.87 Exam Exam Vital Signs Date Time Temp Pulse Resp B/P (MAP) Pulse Ox O2 Delivery O2 Flow Rate FiO2 05/04/18 06:55 100 Vapotherm 25.00 50 05/04/18 06:00 85 24 142/68 (92) 100 Vapotherm 50.00 25.00 05/04/18 05:00 84 21 156/67 (96) 100 Vapotherm 50.00 25.00 05/04/18 04:00 92 20 141/68 (92) 100 Vapotherm 50.00 25.00 05/04/18 04:00 98 Vapotherm 25.00 50 05/04/18 03:00 92 21 145/67 (93) 100 Vapotherm 50.00 25.00 05/04/18 02:00 78 17 147/66 (93) 100 Vapotherm 50.00 25.00 05/04/18 01:57 100 Vapotherm 25.00 50 05/04/18 01:00 85 05/04/18 01:00 85 25 144/69 (94) 100 Vapotherm 50.00 25.00 05/04/18 00:13 82 18 131/64 (86) 100 Vapotherm 50.00 25.00 05/04/18 00:00 99 Vapotherm 25.00 50 05/03/18 23:21 77 16 132/59 (83) 100 Vapotherm 50.00 25.00 05/03/18 22:00 85 20 134/65 (88) 100 Vapotherm 50.00 25.00 05/03/18 21:53 100 Vapotherm 25.00 50 05/03/18 21:00 81 20 136/60 (85) 100 Vapotherm 50.00 25.00 05/03/18 20:00 94 27 138/68 (91) 99 Vapotherm 50.00 25.00 05/03/18 20:00 99 Vapotherm 25.00 50 05/03/18 19:54 90 05/03/18 19:54 99.5 91 26 132/62 (85) 99 Vapotherm 50.00 25.00 05/03/18 19:00 90 24 126/59 (81) 100 Vapotherm 50.00 25.00 05/03/18 18:20 100 Vapotherm 25.00 50 05/03/18 18:00 87 26 131/64 (86) 100 Vapotherm 50.00 25.00 05/03/18 17:00 93 23 134/64 (87) 99 Vapotherm 50.00 25.00 05/03/18 16:00 98.2 90 23 126/61 (82) 99 Vapotherm 50.00 25.00 05/03/18 15:53 98 Vapotherm 25.00 50 05/03/18 15:00 86 27 128/55 (79) 100 Vapotherm 50.00 25.00 05/03/18 14:25 100 Vapotherm 25.00 50 05/03/18 14:00 74 20 123/52 (75) 97 Vapotherm 50.00 25.00 05/03/18 13:00 85 17 121/55 (77) 97 Vapotherm 50.00 25.00 05/03/18 13:00 85 05/03/18 12:16 98 Vapotherm 25.00 50 05/03/18 12:00 75 18 120/48 (72) 100 Vapotherm 50.00 25.00 05/03/18 11:00 77 21 106/39 (61) 100 Vapotherm 50.00 25.00 05/03/18 10:30 96 Vapotherm 25.00 50 05/03/18 10:00 73 17 116/45 (68) 98 Vapotherm 50.00 25.00 05/03/18 09:00 71 17 113/44 (67) 94 Vapotherm 50.00 25.00 05/03/18 08:10 98 Vapotherm 25.00 50 05/03/18 08:00 73 16 116/44 (68) 100 Vapotherm 50.00 25.00 05/03/18 08:00 I & O 05/04/18 07:00 Intake Total 2000 ml Output Total 860 ml Balance 1140 ml Height & Weight Height: 6'3.00" Weight: 217lbs. 5.0oz. 98.700096ra; 22.2 BMI Method:Stated General Appearance: No Apparent Distress, Chronically ill HEENT: Other (Right facial droop) Neck: Non Tender, JVD, Limited Range of Motion Respiratory: Crackles, Decreased Breath Sounds, Rales, Wheezing Cardiovascular: Irregularly Irregular Gastrointestinal: non tender, soft Extremity: No Calf Tenderness, Pedal Edema, Swelling Neurologic/Psychiatric: Alert, Depressed Affect, Facial Droop, Motor Weakness ( Left side) Skin: Pallor Lymphatic: No Adenopathy Results Lab Laboratory Tests 05/02/18 21:45 05/03/18 04:15 05/04/18 03:45 Assessment/Plan Assessment/Plan Right CVA with left sided hemiparesis dysphagia with aspiration pneumonia s/p bronchoscopy -- bronchoscopy is showing Staph Aureus - await to see if this is MRSA -Await results -Anticoagulation on hold secondary to bronchoscopy and possible PEG tube placement this week -Pt had foreign body noted on bronchoscopy Sepsis with Bilateral pneumonia with probable pulmonary edema -BNP is 1812 with extensive bilateral LE edema -Cautious IVF -Extensive bilateral Pulmonary infiltrates -Zosyn, zyvox secondary to kidney function Acute renal failure with metabolic acidosis and decreased UO -Check CVP monitoring -Monitor CAD hx DM II Afib - controlled CANDI DA SILVA DO May 04, 2018 07:19
--- NOTE | 2018-05-04 08:00 | Progress Note-Hospitalist ---
Subjective HPI/CC On Admission Date Seen by Provider: May 04, 2018 Time Seen by Provider: 07:53 Due to continued intermittent low-grade fever and x-ray findings revealing increased patchy alveolar infiltrates especially worse in the right upper lobe area pulmonary was consulted and the patient underwent bronchoscopy with BAL. Subjective/Events-last exam Pt reports doing well and breathing better. Plan for PEG tomorrow. He is very concerned about swelling in RLE since he has been off anticoagulation. Focused Exam Lactate Level Objective Exam Vital Signs Vital Signs Date Time Temp Pulse Resp B/P (MAP) Pulse Ox O2 Delivery O2 Flow Rate FiO2 05/04/18 09:00 116 28 116/57 (76) 94 Vapotherm 30.00 10.00 05/04/18 08:26 40 05/04/18 08:10 98.1 Capillary Refill : General Appearance: No Apparent Distress, Chronically ill, Other (temporal wasting) Respiratory: No Accessory Muscle Use, No Respiratory Distress, Crackles Cardiovascular: No Murmur, Irregularly Irregular Gastrointestinal: Normal Bowel Sounds, Soft Extremity: No Calf Tenderness, Swelling (bilateral to just below knee, sirena's negative) Neurologic/Psychiatric: Alert, Oriented x3 Results/Procedures Lab Patient resulted labs reviewed. Imaging: Reviewed Imaging Films, Reviewed Imaging Report Assessment/Plan Assessment and Plan Assess & Plan/Chief Complaint Aspiration Pneumonia- Plan for PEG tube tomorrow with Dr Shukla; anticoagulation held for procedure, continue ST, wean Vapotherm as able Leg swelling- Will get doppler of leg as he has been bedridden and off anticoagulation History of CVA Atrial fibrillation- anticoagulation being held for surgery Metabolic acidosis- nongap, lactic resolved Elevated BNP- hold lasix Renal insufficiency- improving Anasarca secondary to protein calorie malnutrition, and aggressive fluid hydration for sepsis- will consult dietary Will need NH placement at discharge Critical Care Critical Care: Critically Ill Patient Clinical Quality Measures DVT/VTE Risk/Contraindication: Risk Factor Score Per Nursin RFS Level Per Nursing on Admit: 4+=Very High YO QUEEN MD May 04, 2018 07:59
[2018-05-04] MEDS: LINEZOLID IVPB 300 ML IV SCH (08:09)
[2018-05-04] MEDS: LACTOBACILLUS ACIDOPHILUS (PROBIOTIC) CAPSULE PO SCH (08:30)
[2018-05-04] MEDS ORDERED: NS IV 1000 ML 1,000 ML IV SCH (09:00)
--- NOTE | 2018-05-04 09:02 | Diagnostic Imaging Report ---
Indication: Followup shortness of air, ICU care management. Examination: Chest 05/04/2018 Comparison: 05/03/2018 Findings: Findings of diffuse increased interstitial and airspace opacity seen throughout both lungs. This appears stable. Heart unchanged. Pulmonary vascular congestion stable. There are likely small bilateral pleural effusions. There is no evidence for pneumothorax. Sternotomy wires noted. Impression: 1. Fairly stable appearance of the chest with persistent infiltrates and pulmonary edema. Dictated by: Dictated on workstation # [id number]
[2018-05-04] MEDS: SENNA W/DOCUSATE (SENOKOT S) TABLET PO SCH (09:21)
--- NOTE | 2018-05-04 09:34 | Physical Therapy Evaluation ---
PT Evaluation-General Medical Diagnosis Admission Date May 04, 2018 at 09:23 Medical Diagnosis: s/p bronchoscopy/aspiration pneumonia Onset Date: May 01, 2018 Therapy Diagnosis Therapy Diagnosis: severe debility/weakness Height/Weight Height (Feet): 6 Height (Inches): 3.00 Weight (Pounds): 217 Weight (Ounces): 5.0 Precautions Precautions/Isolations: Fall Prevention, Standard Precautions, Pressure Ulcer Weight Bear Status Right Lower Extremity: Right Weight Bearing/Tolerated Left Lower Extremity: Left Weight Bearing/Tolerated Referral Physician: Bhaskar Reason for Referral: Evaluation/Treatment Medical History Pertinent Medical History: Atrial Fib, CAD, CVA, DM Current History s/p bronchoscopy secondary to aspiration pneumonia with post op bleeding Reviewed History: Yes Prior/Core FIM Prior Level of Function Functional [place] Measure 0=Not Assessed/NA 4=Minimal Assistance 1=Total Assistance 5=Supervision or Setup 2=Maximal Assistance 6=Modified [place] 3=Moderate Assistance 7=Complete [place] Bed Mobility: 3 Transfers (B,C,W/C) (FIM): 3 Gait: 1 Locomotion: 1 Wheelchair Mobility: 2 PT Evaluation-Current Subjective Patient agrees to up in chair. Pain Numeric Pain Scale: 0-No Pain Location: No Pain Reported Objective Patient Orientation: Normal For Age Problem Solving: Fair Attachments: Oxygen (vaoptherm), Jaquez Catheter, IV ROM/Strength ROM Lower Extremities bilateral LE WFL Strength Lower Extremities left LE 1/5 grossly all planes with noted edema/right LE 3-/5 grossly Integumentary/Posture Integumentary refer to nursing notes Bladder Incontinence: Jaquez Cath Posture kyphotic (slightly) Neuromuscular (Tone, Coordination, Reflexes) severely diminished coordination with all/left LE 1/5 grossly with strength requiring dependent assist for mobility Sensory Vision: Functional Hearing: Impaired Sensation Right Lower Extremit: Impaired Sensation Left Lower Extremity: Impaired Transfers Functional [place] Measure 0=Not Assessed/NA 4=Minimal Assistance 1=Total Assistance 5=Supervision or Setup 2=Maximal Assistance 6=Modified [place] 3=Moderate Assistance 7=Complete [place] Transfers (B, C, W/C) (FIM): 1 Scootin Rollin Supine to/from Sit: 1 Sit to/from Stand: 1 bed t/f WC(FIM only if WC use): 1 dependent assist x 2 with all mobility Gait Mode of Locomotion: Both Anticipated Mode of Locomotion: Both Balance Sitting Static: Poor Sitting Dynamic: Poor Standing Static: Poor Standing Dynamic: Poor Assessment/Needs 73 y.o. male, has been on ARU, however, secondary to aspiration pneumonia, has been transferred to ICU and has had a declined in medical status. PT to address functional strength and mobility as tolerated by patient. Rehab Potential: Guarded PT Short Term Goals Short Term Goals Time Frame: May 23, 2018 Transfers (B,C,W/C) (FIM): 2 PT Mammographer Goals Snf Goals PT Mammographer Goals Time Frame: Jun 06, 2018 Transfers (B,C,W/C) (FIM): 3 Gait (FIM): 1 Gait distance (FIM): 1=up to 49 ft Distance: 45' Gait Level of Assist: 3 Gait Assistive Device: Walker Rodolfo PT Plan Problem List Problem List: Activity Tolerance, Functional Strength, Safety, Balance, Gait, Transfer, Bed Mobility Treatment/Plan Treatment Plan: Continue Plan of Care Treatment Plan: Bed Mobility, Education, Functional Activity Sukhdeep, Functional Strength, Gait, Safety, Therapeutic Exercise, Transfers Treatment Duration: Jun 06, 2018 Frequency: 6 times per week Estimated Hrs Per Day: .5 hour per day Patient and/or Family Agrees t: Yes Discharge Recommendations Therapy D/C Recommendations: Long-Term Placement Time/GCodes Time In: 845 Time Out: 900 Total Billed Treatment Time: 15 Total Billed Treatment 1 visit EVMod 15 min G Codes Necessary: KO Coley PT May 04, 2018 09:34
--- NOTE | 2018-05-04 10:29 | Cardiology Progress Note ---
Cardiology SOAP Progress Note Subjective: Failed swallowing evaluation today. More respiratory distress. Objective: I&O/Vital Signs 05/04/18 05/04/18 05/04/18 05/04/18 03:00 04:00 04:00 05:00 Pulse 92 92 84 Resp 21 20 21 B/P (MAP) 145/67 (93) 141/68 (92) 156/67 (96) Pulse Ox 100 98 100 100 O2 Delivery Vapotherm Vapotherm Vapotherm Vapotherm O2 Flow Rate 50.00 25.00 50.00 50.00 25.00 25.00 25.00 FiO2 50 05/04/18 05/04/18 05/04/18 05/04/18 06:00 06:55 07:00 07:00 Pulse 85 82 92 Resp 24 24 B/P (MAP) 142/68 (92) 148/68 (94) Pulse Ox 100 100 100 O2 Delivery Vapotherm Vapotherm Vapotherm O2 Flow Rate 50.00 25.00 50.00 25.00 25.00 FiO2 50 05/04/18 05/04/18 05/04/18 05/04/18 08:00 08:10 08:10 08:26 Temp 98.1 Pulse 85 Resp 25 B/P (MAP) 140/66 (90) Pulse Ox 100 98 O2 Delivery Vapotherm Vapotherm Vapotherm O2 Flow Rate 50.00 15.00 40.00 15.00 25.00 15.00 FiO2 40 40 05/04/18 05/04/18 08:31 09:00 Pulse 116 Resp 28 B/P (MAP) 116/57 (76) Pulse Ox 94 O2 Delivery Vapotherm Vapotherm O2 Flow Rate 30.00 30.00 10.00 10.00 05/04/18 00:00 Intake Total 1000 ml Output Total 330 ml Balance 670 ml Weight (Pounds): 217 Weight (Ounces): 5.0 Weight (Calculated Kilograms): 98.483257 Constitutional: No appears stated age; AAO x 3; No apparent distress; PERRL; No well-developed; well-nourished; No other Respiratory: respiratory distress, chest is bilaterally symmetric, lungs clear to auscultation, other Cardiovascular: No regular rate-rhythm; irregularly irregular; No extra beats, No parasternal heave is noted, No JVD, No edema, No bradycardia, No tachycardia , No point of maximal impulse, No cardiac thrills are palpable; S1 and S2; No gallop/S3, No gallop/S4, No diastolic murmur, No systolic murmur, No friction rub, No click, No other Gastrointestional: No tender, No soft, No round, No distended, No pulsatile mass, No organomegaly, No guarding, No rebound, No tenderness, No hernia, No mass, No audible bowel sounds, No abnormal bowel sounds, No abdominal bruits, No spleenomegaly, No other Extremities: No normal range of motion, No non-tender, No normal inspection, No pedal edema, No calf tenderness, No normal capillary refill, No pelvis stable , No calf tenderness, No inflammation, No pedal edema, No slow capillary refill , No swelling, No other, No abrasion, No clubbing, No cyanosis, No ecchymosis, No laceration, No no lower extremity edema bilateral, No significant edema, No tenderness, No wound Neurologic/Psychiatric: no motor/sensory deficits, alert, normal mood/affect, oriented x 3 Results/Procedures: Labs Laboratory Tests 05/03/18 18:16: Glucometer 142H 05/03/18 20:36: Glucometer 143H 05/04/18 00:40: Glucometer 170H 05/04/18 03:45: White Blood Count 16.5H, Red Blood Count 3.82L, Hemoglobin 10.2L, Hematocrit 31L , Mean Corpuscular Volume 82, Mean Corpuscular Hemoglobin 27, Mean Corpuscular Hemoglobin Concent 33, Red Cell Distribution Width 18.4H, Platelet Count 606H, Mean Platelet Volume 9.3, Neutrophils (%) (Auto) 90H, Lymphocytes (%) (Auto) 5L , Monocytes (%) (Auto) 5, Eosinophils (%) (Auto) 0, Basophils (%) (Auto) 0, Neutrophils # (Auto) 14.8H, Lymphocytes # (Auto) 0.8L, Monocytes # (Auto) 0.9, Eosinophils # (Auto) 0.0, Basophils # (Auto) 0.0, Neutrophils % (Manual) 88, Lymphocytes % (Manual) 6, Monocytes % (Manual) 6, Band Neutrophils , Polychromasia SLIGHT, Hypochromasia SLIGHT, Poikilocytosis MODERATE, Anisocytosis MODERATE, Microcytosis SLIGHT, Spherocytes SLIGHT, Crenated Cell MARKED, Elliptocytes SLIGHT, Schistocytes SLIGHT, Sodium Level 135, Potassium Level 4.0, Chloride Level 104, Carbon Dioxide Level 18L, Anion Gap 13, Blood Urea Nitrogen 53H, Creatinine 1.86H, Estimat Glomerular Filtration Rate 36, BUN/ Creatinine Ratio 28, Glucose Level 157H, Calcium Level 7.8L, Phosphorus Level 3.8, Magnesium Level 2.0 A/P: Assessment/Dx: This is a 73-year-old gentleman who has history of splenic artery thrombosis with infarct. He then had left-sided weakness and was noted to have right- sided CVA without evidence of significant extracranial vascular disease. He underwent cardiac catheterization on March 24 which revealed mild hypokinesis with an EF of 40 percent. 3 patent grafts disease was noted in the PDA distal to the RCA graft and also some disease in the OM. No PCI was done. Medical management. He was transferred to our hospital for inpatient rehabilitation. He has some residual left sided weakness. The patient also has history of diabetes with an organ damage. He has history of persistent atrial fibrillation and is on Eliquis. Aspiration, sepsis, Failed swallowing evaluation, Mild bleeding during bronchoscopy, Frequent thromboembolic event, Persistent Atrial fibrillation, CAD, CABG, Ischemic cardiomyopathy, Aortic stenosis, Chest pain Plan: Aspiration: Plan is for a PEG. Aspiration found on bronchoscopy. Patient not willing to get PEG. I tried to convince him. A swallowing eval. Sepsis, on broad spectrum IV antibiotics. Mild respiratory distress with coarse breath sounds, right worse than left. Eliquis held due to bleeding during bronchoscopy. PEG planned tomorrow. CAD/CABG: Recent coronary angiography at [facility] showed patent grafts with distal disease not am and able to PCI. Medical therapy was recommended. Recurrent CVA/thromboembolic events: On Eliquis, on hold. Persistent atrial fibrillation on amiodarone and Eliquis, on hold. Also on diltiazem and beta sammie. Ischemic cardiomyopathy: On metoprolol. Thank you for your consultation. Please call me if you have any questions. Malcolm House MD, FACP, FACC, FSCAI, FHRS, CCDS Interventional Cardiology Cardiac Electrophysiology Vascular Medicine and Endovascular Interventions Focused Exam Lactate Level 05/02/18 20:00: Lactic Acid Level 3.43*H 05/02/18 21:45: Lactic Acid Level 2.90*H 05/03/18 07:00: Lactic Acid Level 1.87 Boby HOUSE MD May 04, 2018 10:29 am
--- NOTE | 2018-05-04 10:32 | Progress Note ---
Subjective Date Seen by Provider: May 04, 2018 Time Seen by Provider: 08:35 Subjective/Events-last exam Patient sitting in chair. About to have swallow eval. Has been swollen all over. Having difficulty swallowing. Family at bedside. Focused Exam Lactate Level 05/02/18 20:00: Lactic Acid Level 3.43*H 05/02/18 21:45: Lactic Acid Level 2.90*H 05/03/18 07:00: Lactic Acid Level 1.87 Objective Exam Vital Signs Date Time Temp Pulse Resp B/P (MAP) Pulse Ox O2 Delivery O2 Flow Rate FiO2 05/04/18 08:31 Vapotherm 30.00 10.00 05/04/18 08:26 98 15.00 40 05/04/18 08:10 98.1 Vapotherm 40.00 15.00 05/04/18 07:00 92 05/04/18 06:55 100 Vapotherm 25.00 50 05/04/18 06:00 85 24 142/68 (92) 100 Vapotherm 50.00 25.00 05/04/18 05:00 84 21 156/67 (96) 100 Vapotherm 50.00 25.00 05/04/18 04:00 92 20 141/68 (92) 100 Vapotherm 50.00 25.00 05/04/18 04:00 98 Vapotherm 25.00 50 05/04/18 03:00 92 21 145/67 (93) 100 Vapotherm 50.00 25.00 05/04/18 02:00 78 17 147/66 (93) 100 Vapotherm 50.00 25.00 05/04/18 01:57 100 Vapotherm 25.00 50 05/04/18 01:00 85 05/04/18 01:00 85 25 144/69 (94) 100 Vapotherm 50.00 25.00 05/04/18 00:13 82 18 131/64 (86) 100 Vapotherm 50.00 25.00 05/04/18 00:00 99 Vapotherm 25.00 50 05/03/18 23:21 77 16 132/59 (83) 100 Vapotherm 50.00 25.00 05/03/18 22:00 85 20 134/65 (88) 100 Vapotherm 50.00 25.00 05/03/18 21:53 100 Vapotherm 25.00 50 05/03/18 21:00 81 20 136/60 (85) 100 Vapotherm 50.00 25.00 05/03/18 20:00 94 27 138/68 (91) 99 Vapotherm 50.00 25.00 05/03/18 20:00 99 Vapotherm 25.00 50 05/03/18 19:54 90 05/03/18 19:54 99.5 91 26 132/62 (85) 99 Vapotherm 50.00 25.00 05/03/18 19:00 90 24 126/59 (81) 100 Vapotherm 50.00 25.00 05/03/18 18:20 100 Vapotherm 25.00 50 05/03/18 18:00 87 26 131/64 (86) 100 Vapotherm 50.00 25.00 05/03/18 17:00 93 23 134/64 (87) 99 Vapotherm 50.00 25.00 05/03/18 16:00 98.2 90 23 126/61 (82) 99 Vapotherm 50.00 25.00 05/03/18 15:53 98 Vapotherm 25.00 50 05/03/18 15:00 86 27 128/55 (79) 100 Vapotherm 50.00 25.00 05/03/18 14:25 100 Vapotherm 25.00 50 05/03/18 14:00 74 20 123/52 (75) 97 Vapotherm 50.00 25.00 05/03/18 13:00 85 17 121/55 (77) 97 Vapotherm 50.00 25.00 05/03/18 13:00 85 05/03/18 12:16 98 Vapotherm 25.00 50 05/03/18 12:00 75 18 120/48 (72) 100 Vapotherm 50.00 25.00 05/03/18 11:00 77 21 106/39 (61) 100 Vapotherm 50.00 25.00 05/03/18 10:30 96 Vapotherm 25.00 50 I & O 05/04/18 07:00 Intake Total 2000 ml Output Total 860 ml Balance 1140 ml Capillary Refill : General Appearance: No Apparent Distress, Chronically ill HEENT: Other (Right facial droop) Neck: Non Tender, JVD, Limited Range of Motion Respiratory: No Accessory Muscle Use, No Respiratory Distress, Crackles Cardiovascular: Regular Rate, Rhythm, No Murmur Gastrointestinal: non tender, soft Extremity: No Calf Tenderness, Swelling (bilateral lower extremities) Neurologic/Psychiatric: Alert, Oriented x3 Skin: Pallor Lymphatic: No Adenopathy Results Lab Laboratory Tests 05/03/18 10:44: Stool Occult Blood Immunoassay POSITIVEH 05/03/18 11:46: Glucometer 172H 05/03/18 18:16: Glucometer 142H 05/03/18 20:36: Glucometer 143H 05/04/18 00:40: Glucometer 170H 05/04/18 03:45: White Blood Count 16.5H, Red Blood Count 3.82L, Hemoglobin 10.2L, Hematocrit 31L , Mean Corpuscular Volume 82, Mean Corpuscular Hemoglobin 27, Mean Corpuscular Hemoglobin Concent 33, Red Cell Distribution Width 18.4H, Platelet Count 606H, Mean Platelet Volume 9.3, Neutrophils (%) (Auto) 90H, Lymphocytes (%) (Auto) 5L , Monocytes (%) (Auto) 5, Eosinophils (%) (Auto) 0, Basophils (%) (Auto) 0, Neutrophils # (Auto) 14.8H, Lymphocytes # (Auto) 0.8L, Monocytes # (Auto) 0.9, Eosinophils # (Auto) 0.0, Basophils # (Auto) 0.0, Neutrophils % (Manual) 88, Lymphocytes % (Manual) 6, Monocytes % (Manual) 6, Band Neutrophils , Polychromasia SLIGHT, Hypochromasia SLIGHT, Poikilocytosis MODERATE, Anisocytosis MODERATE, Microcytosis SLIGHT, Spherocytes SLIGHT, Crenated Cell MARKED, Elliptocytes SLIGHT, Schistocytes SLIGHT, Sodium Level 135, Potassium Level 4.0, Chloride Level 104, Carbon Dioxide Level 18L, Anion Gap 13, Blood Urea Nitrogen 53H, Creatinine 1.86H, Estimat Glomerular Filtration Rate 36, BUN/ Creatinine Ratio 28, Glucose Level 157H, Calcium Level 7.8L, Phosphorus Level 3.8, Magnesium Level 2.0 Assessment/Plan Assessment/Plan Assessment/Plan aspiration pneumonia History of CVA Atrial fibrillation anticoagulation being held at this time Renal insufficiency stable Discussed with Dr. Muro and Dr. Munoz who rec to have PEG tube placed. Will plan on PEG tomorrow, continue to hold anticoagulation/antiplatelets at this time. Discussed risks and benefits and family and patient understand. Clinical Quality Measures DVT/VTE Risk/Contraindication: Risk Factor Score Per Nursin RFS Level Per Nursing on Admit: 4+=Very High MATEUS SHEEHAN DO May 04, 2018 10:32
[2018-05-04] MEDS ORDERED: SODIUM BICARB 8.4% 50 MEQ/50 ML (ABBOTT) SYR INJ ONE (10:41)
[2018-05-04] MEDS ORDERED: EPINEPHrine INJECTION 1 MG/ML AMP IJ ONE (10:41)
--- NOTE | 2018-05-04 10:44 | Code Blue Response-Hospitalist ---
General Date Seen/Responded 05/04/18 History of Present Illness Time seen by provider: 10:03 Called to bedside by overhead Code Blue page. Upon my arrival high quality chest compressions in place and defibrillator being placed. Backboard placed during pulse check. Original rhythm showed PEA and chest compressions resumed. ACLS protocol continue and rhythm checks and pulse checks done every two minutes. Patient remained in PEA throughout duration of code. Due to vascular history doppler was obtained to verify lack of pulse. Anesthesia at bedside to manage airway and patient bagged throughout code. to bedside during code and requesting efforts be terminated. Time of 1019. Allergies and Home Medications Allergies Coded Allergies: Iodinated Contrast- Oral and IV Dye (Unverified Allergy, Mild, RASH, ) Home Medications Acetaminophen 325 Mg Tablet, 650 MG PO Q6HR PRN for PAIN-MILD Prescribed by: EMMY JULIEN on 04/24/18743 Amiodarone HCl 400 Mg Tablet, 200 MG PO BID, (Reported) TAKES 1/2 (400MG) TABLET Apixaban 5 Mg Tablet, 5 MG PO BID Prescribed by: EMMY JULIEN on 04/24/18743 Atorvastatin Calcium 40 Mg Tablet, 40 MG PO HS Prescribed by: EMMY JULIEN on 04/24/18743 Citalopram Hydrobromide 20 Mg Tablet, 20 MG PO HS Prescribed by: EMMY JULIEN on 04/24/18743 Clopidogrel Bisulfate 75 Mg Tablet, 75 MG PO DAILY Prescribed by: EMMY JULIEN on 04/24/18743 Famotidine 20 Mg Tablet, 20 MG PO BID Prescribed by: EMMY JULIEN on 04/24/18743 Fluticasone Propionate 16 Gm [place].susp, 2 SPRAY NS BID, (Reported) Insulin Detemir 100 Unit/1 Ml Insuln.pen, 25 UNIT SQ Q12H, (Reported) Insulin Determir 1,000 Units/10 Ml Soln, 8 UNIT SQ HS Prescribed by: EMMY JULIEN on 04/24/18743 Insulin Determir 1,000 Units/10 Ml Soln, 15 UNIT SQ DAILY Prescribed by: EMMY JULIEN on 04/24/18743 Insulin Lispro 100 Unit/1 Ml Insuln.pen, 30 UNITS SC AC, (Reported) L. Acidophilus/Bulgaricus 1 Each Tablet, 1 TAB.CHEW PO AC Prescribed by: EMMY JULIEN on 04/24/18743 Loratadine 10 Mg Tablet, 10 MG PO DAILY Prescribed by: EMMY JULIEN on 04/24/18743 Losartan Potassium 25 Mg Tablet, 25 MG PO DAILY Prescribed by: EMMY JULIEN on 04/24/18743 Metoprolol Succinate 25 Mg Tab.er.24h, 25 MG PO DAILY Prescribed by: EMMY JULIEN on 04/24/18743 Patient Home Medication List Home Medication List Reviewed: Yes Physical Exam Vital Signs Vital Signs - First Documented 05/02/18 05/02/18 00:00 23:15 Temp 98.0 Pulse 85 Resp 17 B/P (MAP) 99/45 (63) Pulse Ox 98 O2 Delivery High Flow N/C O2 Flow Rate 5.00 FiO2 100 Capillary Refill : Height, Weight, BMI Height: 6'3.00" Weight: 217lbs. 5.0oz. [id number]; 22.2 BMI Method:Stated General Appearance: severe distress Critical Care Note Critical Care Start Time: 10:03 Stop Time: 10:37 Progress/Results/Core Measures Results/Orders Lab Results Laboratory Tests Test 05/01/18 11:46 05/01/18 17:05 05/01/18 20:47 05/02/18 03:42 Range/Units Glucometer 144 H 133 H 128 H 70-110 MG/DL White Blood Count 14.3 H 4.3-11.0 10^3/uL Red Blood Count 3.77 L 4.35-5.85 10^6/uL Hemoglobin 10.0 L 13.3-17.7 G/DL Hematocrit 32 L 40-54 % Mean Corpuscular Volume 84 80-99 FL Mean Corpuscular Hemoglobin 27 25-34 PG Mean Corpuscular Hemoglobin Concent 32 32-36 G/DL Red Cell Distribution Width 18.4 H 10.0-14.5 % Platelet Count 446 H 130-400 10^3/uL Mean Platelet Volume 9.6 7.4-10.4 FL Neutrophils (%) (Auto) 91 H 42-75 % Lymphocytes (%) (Auto) 5 L 12-44 % Monocytes (%) (Auto) 5 0-12 % Eosinophils (%) (Auto) 0 0-10 % Basophils (%) (Auto) 0 0-10 % Neutrophils # (Auto) 13.0 H 1.8-7.8 X 10^3 Lymphocytes # (Auto) 0.6 L 1.0-4.0 X 10^3 Monocytes # (Auto) 0.7 0.0-1.0 X 10^3 Eosinophils # (Auto) 0.0 0.0-0.3 10^3/uL Basophils # (Auto) 0.0 0.0-0.1 10^3/uL Neutrophils % (Manual) 90 % Lymphocytes % (Manual) 4 % Monocytes % (Manual) 6 % Anisocytosis SLIGHT [place] Cells MODERATE Sodium Level 135 135-145 MMOL/L Potassium Level 4.5 3.6-5.0 MMOL/L Chloride Level 101 98-107 MMOL/L Carbon Dioxide Level 17 L 21-32 MMOL/L Anion Gap 17 H 5-14 MMOL/L Blood Urea Nitrogen 39 H 7-18 MG/DL Creatinine 1.54 H 0.60-1.30 MG/DL Estimat Glomerular Filtration Rate 44 BUN/Creatinine Ratio 25 Glucose Level 169 H 70-105 MG/DL Calcium Level 8.0 L 8.5-10.1 MG/DL Phosphorus Level 5.3 H 2.3-4.7 MG/DL Magnesium Level 2.3 1.8-2.4 MG/DL Test 05/02/18 06:48 05/02/18 09:05 05/02/18 11:52 05/02/18 15:14 Range/Units Lactic Acid Level 2.36 *H 3.08 *H 0.50-2.00 MMOL/L B-Type Natriuretic Peptide 1812.6 H <100.0 PG/ML Glucometer 231 H 70-110 MG/DL Vancomycin Level Trough 21.4 H 10.0-20.0 UG/ML Test 05/02/18 16:56 05/02/18 19:43 05/02/18 20:00 05/02/18 21:45 Range/Units Glucometer 250 H 322 H 70-110 MG/DL Lactic Acid Level 3.43 *H 2.90 *H 0.50-2.00 MMOL/L Sodium Level 134 L 135-145 MMOL/L Potassium Level 4.1 3.6-5.0 MMOL/L Chloride Level 102 98-107 MMOL/L Carbon Dioxide Level 18 L 21-32 MMOL/L Anion Gap 14 5-14 MMOL/L Blood Urea Nitrogen 52 H 7-18 MG/DL Creatinine 2.04 H 0.60-1.30 MG/DL Estimat Glomerular Filtration Rate 32 BUN/Creatinine Ratio 25 Glucose Level 300 H 70-105 MG/DL Calcium Level 7.9 L 8.5-10.1 MG/DL B-Type Natriuretic Peptide 1658.3 H <100.0 PG/ML Test 05/02/18 22:40 05/02/18 23:55 05/03/18 02:40 05/03/18 04:15 Range/Units Blood Gas Puncture Site LEFT BRACHIAL LT RADIAL LEFT FEMORAL Blood Gas Patient Temperature 98.8 98.7 98.7 Arterial Blood pH 7.34 *L 7.36 L 7.39 7.37-7.43 Arterial Blood Partial Pressure CO2 41 38 35 35-45 MMHG Arterial Blood Partial Pressure O2 28 *L 41 L 177 H 79-93 MMHG Arterial Blood HCO3 22 L 21 L 21 L 23-27 MMOL/L Arterial Blood Total CO2 22.9 21.7 21.6 21.0-31.0 MMOL/L Arterial Blood Oxygen Saturation 35 L 66 L 100 94-100 % Arterial Blood Base Excess -3.1 L -4.0 L -3.6 L -2.5-2.5 MMOL/L Randy Test POSITIVE POSITIVE POSITIVE Blood Gas Ventilator Setting NO NO NO Blood Gas Inspired Oxygen N 100% 100% NONBREATHER White Blood Count 13.2 H 4.3-11.0 10^3/uL Red Blood Count 3.56 L 4.35-5.85 10^6/uL Hemoglobin 9.7 L 13.3-17.7 G/DL Hematocrit 29 L 40-54 % Mean Corpuscular Volume 82 80-99 FL Mean Corpuscular Hemoglobin 27 25-34 PG Mean Corpuscular Hemoglobin Concent 33 32-36 G/DL Red Cell Distribution Width 17.9 H 10.0-14.5 % Platelet Count 554 H 130-400 10^3/uL Mean Platelet Volume 9.7 7.4-10.4 FL Neutrophils (%) (Auto) 87 H 42-75 % Lymphocytes (%) (Auto) 6 L 12-44 % Monocytes (%) (Auto) 6 0-12 % Eosinophils (%) (Auto) 0 0-10 % Basophils (%) (Auto) 0 0-10 % Neutrophils # (Auto) 11.5 H 1.8-7.8 X 10^3 Lymphocytes # (Auto) 0.8 L 1.0-4.0 X 10^3 Monocytes # (Auto) 0.8 0.0-1.0 X 10^3 Eosinophils # (Auto) 0.0 0.0-0.3 10^3/uL Basophils # (Auto) 0.0 0.0-0.1 10^3/uL Sodium Level 135 135-145 MMOL/L Potassium Level 3.8 3.6-5.0 MMOL/L Chloride Level 103 98-107 MMOL/L Carbon Dioxide Level 19 L 21-32 MMOL/L Anion Gap 13 5-14 MMOL/L Blood Urea Nitrogen 55 H 7-18 MG/DL Creatinine 2.01 H 0.60-1.30 MG/DL Estimat Glomerular Filtration Rate 33 BUN/Creatinine Ratio 27 Glucose Level 258 H 70-105 MG/DL Calcium Level 7.4 L 8.5-10.1 MG/DL Phosphorus Level 4.2 2.3-4.7 MG/DL Magnesium Level 2.2 1.8-2.4 MG/DL Test 05/03/18 05:00 05/03/18 07:00 05/03/18 10:44 05/03/18 11:46 Range/Units Blood Gas Puncture Site RT ARTLINE Blood Gas Patient Temperature 98.8 Arterial Blood pH 7.39 7.37-7.43 Arterial Blood Partial Pressure CO2 35 35-45 MMHG Arterial Blood Partial Pressure O2 118 H 79-93 MMHG Arterial Blood HCO3 21 L 23-27 MMOL/L Arterial Blood Total CO2 22.1 21.0-31.0 MMOL/L Arterial Blood Oxygen Saturation 99 94-100 % Arterial Blood Base Excess -3.1 L -2.5-2.5 MMOL/L Randy Test POSITIVE Blood Gas Ventilator Setting NO Blood Gas Inspired Oxygen 50% VAPO Lactic Acid Level 1.87 0.50-2.00 MMOL/L Stool Occult Blood Immunoassay POSITIVE H NEGATIVE Glucometer 172 H 70-110 MG/DL Test 05/03/18 18:16 05/03/18 20:36 05/04/18 00:40 05/04/18 03:45 Range/Units Glucometer 142 H 143 H 170 H 70-110 MG/DL White Blood Count 16.5 H 4.3-11.0 10^3/uL Red Blood Count 3.82 L 4.35-5.85 10^6/uL Hemoglobin 10.2 L 13.3-17.7 G/DL Hematocrit 31 L 40-54 % Mean Corpuscular Volume 82 80-99 FL Mean Corpuscular Hemoglobin 27 25-34 PG Mean Corpuscular Hemoglobin Concent 33 32-36 G/DL Red Cell Distribution Width 18.4 H 10.0-14.5 % Platelet Count 606 H 130-400 10^3/uL Mean Platelet Volume 9.3 7.4-10.4 FL Neutrophils (%) (Auto) 90 H 42-75 % Lymphocytes (%) (Auto) 5 L 12-44 % Monocytes (%) (Auto) 5 0-12 % Eosinophils (%) (Auto) 0 0-10 % Basophils (%) (Auto) 0 0-10 % Neutrophils # (Auto) 14.8 H 1.8-7.8 X 10^3 Lymphocytes # (Auto) 0.8 L 1.0-4.0 X 10^3 Monocytes # (Auto) 0.9 0.0-1.0 X 10^3 Eosinophils # (Auto) 0.0 0.0-0.3 10^3/uL Basophils # (Auto) 0.0 0.0-0.1 10^3/uL Neutrophils % (Manual) 88 % Lymphocytes % (Manual) 6 % Monocytes % (Manual) 6 % Band Neutrophils % Polychromasia SLIGHT Hypochromasia SLIGHT Poikilocytosis MODERATE Anisocytosis MODERATE Microcytosis SLIGHT Spherocytes SLIGHT Crenated Cell MARKED Elliptocytes SLIGHT Schistocytes SLIGHT Sodium Level 135 135-145 MMOL/L Potassium Level 4.0 3.6-5.0 MMOL/L Chloride Level 104 98-107 MMOL/L Carbon Dioxide Level 18 L 21-32 MMOL/L Anion Gap 13 5-14 MMOL/L Blood Urea Nitrogen 53 H 7-18 MG/DL Creatinine 1.86 H 0.60-1.30 MG/DL Estimat Glomerular Filtration Rate 36 BUN/Creatinine Ratio 28 Glucose Level 157 H 70-105 MG/DL Calcium Level 7.8 L 8.5-10.1 MG/DL Phosphorus Level 3.8 2.3-4.7 MG/DL Magnesium Level 2.0 1.8-2.4 MG/DL My Orders Orders - YO QUEEN MD Us Venous Lower Ext Rt (05/04/18 07:46) Pt Evaluate/Treat Request (05/04/18 07:46) Request Ot Evaluate & Treat (05/04/18 07:46) Weight Bearing Status (05/04/18 07:46) Central Line D/C (05/04/18 07:46) Status Change To Inpatient (05/04/18 09:23) Vital Signs/I&O 05/02/18 05/02/18 05/02/18 05/02/18 00:00 00:00 00:00 01:00 Temp 98.0 Pulse 85 76 Resp 17 14 B/P (MAP) 99/45 (63) 95/53 (67) Pulse Ox 98 98 100 O2 Delivery High Flow N/C High Flow N/C High Flow N/C O2 Flow Rate 5.00 5.00 5.00 05/02/18 05/02/18 05/02/18 05/02/18 01:00 02:00 02:30 03:00 Pulse 73 72 70 Resp 15 12 B/P (MAP) 98/64 (75) 99/53 (68) Pulse Ox 100 97 100 O2 Delivery High Flow N/C High Flow N/C High Flow N/C O2 Flow Rate 5.00 5.00 5.00 05/02/18 05/02/18 05/02/18 05/02/18 04:00 04:00 04:00 05:00 Temp 97.9 Pulse 79 76 Resp 16 16 B/P (MAP) 104/54 (71) 99/68 (78) Pulse Ox 100 100 100 100 O2 Delivery High Flow N/C High Flow N/C High Flow N/C High Flow N/C O2 Flow Rate 4.00 4.00 5.00 4.00 05/02/18 05/02/18 05/02/18 05/02/18 06:22 07:00 07:00 07:01 Pulse 77 81 81 Resp 14 14 B/P (MAP) 98/55 (69) 112/53 (72) Pulse Ox 100 99 O2 Delivery High Flow N/C High Flow N/C High Flow N/C O2 Flow Rate 4.00 4.00 3.00 05/02/18 05/02/18 05/02/18 05/02/18 08:15 08:35 09:35 10:47 Temp 98.6 B/P (MAP) Pulse Ox 100 99 O2 Delivery Nasal Cannula High Flow N/C Nasal Cannula High Flow N/C O2 Flow Rate 2.00 2.00 1.00 1.00 05/02/18 05/02/18 05/02/18 05/02/18 12:00 12:50 12:50 13:00 Temp 98.0 Pulse 82 73 Resp 21 19 B/P (MAP) 101/50 (67) 108/51 (70) Pulse Ox 97 100 98 O2 Delivery Nasal Cannula Nasal Cannula High Flow N/C Nasal Cannula O2 Flow Rate 1.00 1.00 1.00 1.00 05/02/18 05/02/18 05/02/18 05/02/18 13:00 14:00 14:26 14:43 Pulse 73 73 Resp 20 B/P (MAP) 104/60 (75) Pulse Ox 96 95 O2 Delivery Nasal Cannula Room Air Room Air O2 Flow Rate 1.00 05/02/18 05/02/18 05/02/18 05/02/18 15:00 16:00 16:57 17:00 Pulse 81 85 82 Resp 20 17 41 B/P (MAP) 98/56 (70) 97/53 (68) 98/44 (62) Pulse Ox 97 97 100 100 O2 Delivery Room Air Room Air Room Air Room Air 05/02/18 05/02/18 05/02/18 05/02/18 18:22 18:30 19:00 19:00 Pulse 82 76 87 Resp 32 28 B/P (MAP) 93/46 (62) 97/57 (70) Pulse Ox 96 98 97 O2 Delivery Room Air Room Air Room Air 05/02/18 05/02/18 05/02/18 05/02/18 19:38 20:00 20:00 21:00 Temp 98.8 Pulse 84 77 81 Resp 22 23 23 B/P (MAP) 97/57 (70) 100/53 (69) 98/55 (69) Pulse Ox 99 98 98 97 O2 Delivery Room Air Room Air Room Air Room Air 05/02/18 05/02/18 05/02/18 05/02/18 21:57 22:00 23:00 23:15 Pulse 74 75 Resp 20 23 B/P (MAP) 106/56 (73) 100/67 (78) Pulse Ox 98 98 99 O2 Delivery Room Air Room Air Room Air Non Rebreather O2 Flow Rate 15.00 FiO2 100 05/02/18 05/03/18 05/03/18 05/03/18 23:30 00:00 00:00 00:00 Temp 98.7 Pulse 86 78 Resp 24 14 B/P (MAP) 126/70 (88) 104/52 (69) Pulse Ox 100 100 97 O2 Delivery Non Rebreather Room Air Room Air O2 Flow Rate 100.00 05/03/18 05/03/18 05/03/18 05/03/18 01:00 01:00 01:27 01:46 Pulse 75 75 Resp 24 B/P (MAP) 114/76 (89) Pulse Ox 100 O2 Delivery Room Air Non Rebreather Non Rebreather O2 Flow Rate 15.00 15.00 FiO2 100 100 05/03/18 05/03/18 05/03/18 05/03/18 02:00 02:25 02:56 03:00 Pulse 76 81 64 Resp 26 24 29 B/P (MAP) 135/50 (78) 122/46 (71) Pulse Ox 100 100 100 O2 Delivery Non Rebreather Non Rebreather Non Rebreather Non Rebreather O2 Flow Rate 100.00 15.00 100.00 100.00 FiO2 100 05/03/18 05/03/18 05/03/18 05/03/18 03:02 04:00 04:00 04:00 Pulse 65 Resp 18 B/P (MAP) 110/36 (60) Pulse Ox 100 100 O2 Delivery Non Rebreather Vapotherm Vapotherm Vapotherm O2 Flow Rate 15.00 30.00 50.00 30.00 30.00 FiO2 100 50 50 05/03/18 05/03/18 05/03/18 05/03/18 05:00 06:00 07:00 07:00 Pulse 70 75 70 70 Resp 18 18 16 B/P (MAP) 119/41 (67) 120/48 (72) 112/41 (64) Pulse Ox 100 100 100 O2 Delivery Vapotherm Vapotherm Vapotherm O2 Flow Rate 50.00 50.00 50.00 30.00 30.00 30.00 05/03/18 05/03/18 05/03/18 05/03/18 07:07 08:00 08:00 08:10 Pulse 73 Resp 16 B/P (MAP) 116/44 (68) Pulse Ox 99 100 98 O2 Delivery Vapotherm Vapotherm Vapotherm O2 Flow Rate 30.00 50.00 25.00 25.00 FiO2 50 50 05/03/18 05/03/18 05/03/18 05/03/18 09:00 10:00 10:30 11:00 Pulse 71 73 77 Resp 17 17 21 B/P (MAP) 113/44 (67) 116/45 (68) 106/39 (61) Pulse Ox 94 98 96 100 O2 Delivery Vapotherm Vapotherm Vapotherm Vapotherm O2 Flow Rate 50.00 50.00 25.00 50.00 25.00 25.00 25.00 FiO2 50 05/03/18 05/03/18 05/03/18 05/03/18 12:00 12:16 13:00 13:00 Pulse 75 85 85 Resp 18 17 B/P (MAP) 120/48 (72) 121/55 (77) Pulse Ox 100 98 97 O2 Delivery Vapotherm Vapotherm Vapotherm O2 Flow Rate 50.00 25.00 50.00 25.00 25.00 FiO2 50 05/03/18 05/03/18 05/03/18 05/03/18 14:00 14:25 15:00 15:53 Pulse 74 86 Resp 20 27 B/P (MAP) 123/52 (75) 128/55 (79) Pulse Ox 97 100 100 98 O2 Delivery Vapotherm Vapotherm Vapotherm Vapotherm O2 Flow Rate 50.00 25.00 50.00 25.00 25.00 25.00 FiO2 50 50 05/03/18 05/03/18 05/03/18 05/03/18 16:00 17:00 18:00 18:20 Temp 98.2 Pulse 90 93 87 Resp 23 23 26 B/P (MAP) 126/61 (82) 134/64 (87) 131/64 (86) Pulse Ox 99 99 100 100 O2 Delivery Vapotherm Vapotherm Vapotherm Vapotherm O2 Flow Rate 50.00 50.00 50.00 25.00 25.00 25.00 25.00 FiO2 50 05/03/18 05/03/18 05/03/18 05/03/18 19:00 19:54 19:54 20:00 Temp 99.5 Pulse 90 91 90 Resp 24 26 B/P (MAP) 126/59 (81) 132/62 (85) Pulse Ox 100 99 99 O2 Delivery Vapotherm Vapotherm Vapotherm O2 Flow Rate 50.00 50.00 25.00 25.00 25.00 FiO2 50 18 05/03/18 05/03/18 05/03/18 20:00 21:00 21:53 22:00 Pulse 94 81 85 Resp 27 20 20 B/P (MAP) 138/68 (91) 136/60 (85) 134/65 (88) Pulse Ox 99 100 100 100 O2 Delivery Vapotherm Vapotherm Vapotherm Vapotherm O2 Flow Rate 50.00 50.00 25.00 50.00 25.00 25.00 25.00 FiO2 50 05/03/18 05/04/18 05/04/18 05/04/18 23:21 00:00 00:13 01:00 Pulse 77 82 85 Resp 16 18 25 B/P (MAP) 132/59 (83) 131/64 (86) 144/69 (94) Pulse Ox 100 99 100 100 O2 Delivery Vapotherm Vapotherm Vapotherm Vapotherm O2 Flow Rate 50.00 25.00 50.00 50.00 25.00 25.00 25.00 FiO2 50 18 05/04/18 05/04/18 05/04/18 01:00 01:57 02:00 03:00 Pulse 85 78 92 Resp 17 21 B/P (MAP) 147/66 (93) 145/67 (93) Pulse Ox 100 100 100 O2 Delivery Vapotherm Vapotherm Vapotherm O2 Flow Rate 25.00 50.00 50.00 25.00 25.00 FiO2 50 05/04/1805/04/18 05/04/18 05/04/18 04:00 04:00 05:00 06:00 Pulse 92 84 85 Resp 20 21 24 B/P (MAP) 141/68 (92) 156/67 (96) 142/68 (92) Pulse Ox 98 100 100 100 O2 Delivery Vapotherm Vapotherm Vapotherm Vapotherm O2 Flow Rate 25.00 50.00 50.00 50.00 25.00 25.00 25.00 FiO2 50 9/17/18 9/17/18 9/17/18 9/17/18 06:55 07:00 07:00 08:00 Pulse 82 92 85 Resp 24 25 B/P (MAP) 148/68 (94) 140/66 (90) Pulse Ox 100 100 100 O2 Delivery Vapotherm Vapotherm Vapotherm O2 Flow Rate 25.00 50.00 50.00 25.00 25.00 FiO2 50 05/04/18 05/04/18 05/04/18 05/04/18 08:10 08:10 08:26 08:31 Temp 98.1 Pulse Ox 98 O2 Delivery Vapotherm Vapotherm Vapotherm O2 Flow Rate 15.00 40.00 15.00 30.00 15.00 10.00 FiO2 40 40 05/04/18 09:00 Pulse 116 Resp 28 B/P (MAP) 116/57 (76) Pulse Ox 94 O2 Delivery Vapotherm O2 Flow Rate 30.00 10.00 Blood Pressure Mean: 92 FSBG Bedside Testing Finger Stick Blood Glucose: 157 Blood Glucose Action Taken: SSI GIVEN Comfort Measures/ Cardiopulmonary Arrest: Cardiac Arrest (PEA) Clinical Quality Measures DVT/VTE Risk/Contraindication: Risk Factor Score Per Nursin RFS Level Per Nursing on Admit: 4+=Very High YO QUEEN MD May 04, 2018 10:43
[2018-05-04] MEDS ORDERED: meTOprolol 5 MG/5 ML (LOPRESSOR) VIAL IV SCH (12:00)
--- NOTE | 2018-05-04 13:23 | Pulmonary Progress Note ---
Standard Progress Note Progress Notes Time Seen by Provider: 10:00 Called to bedside stat by Dr. Muro who is running Code Blue on patient. He was ambulating back to bed with RN at bedside from commode when he became increasingly SOB. He had episode of syncope and then went into PEA. He has been coding for about 10min prior to me being notified. Assessment & Plan Acute syncope CODE BLUE -approx 12-15min of ACLS prior to family instructing us to stop efforts. -I explained in depth to family patients current condition and answered all questions. Right CVA with left sided hemiparesis dysphagia with aspiration pneumonia s/p bronchoscopy - Sepsis with Bilateral pneumonia with probable pulmonary edema Acute renal failure with metabolic acidosis and decreased UO CAD hx DM II Afib - controlled Time spent with patient, family, and medical staff is 60min counting this AM and urgent call to bedside. Critical Care: Critically Ill Patient Time spent with patient (mins): 60 Focused Exam Lactate Level 05/02/18 20:00: Lactic Acid Level 3.43*H 05/02/18 21:45: Lactic Acid Level 2.90*H 05/03/18 07:00: Lactic Acid Level 1.87 CANDI DA SILVA DO May 04, 2018 13:23
--- NOTE | 2018-05-04 14:38 | OPERATIVE REPORT ---
DATE OF SERVICE: 05/03/2018 PREOPERATIVE DIAGNOSIS: Need for central line in critically-ill patient. POSTOPERATIVE DIAGNOSIS: Need for central line in critically-ill patient. PROCEDURE: Left femoral vein ultrasound-guided central line and left arterial stick blood draw for blood gas. SURGEON: Mateus Shukla DO ANESTHESIA: 5 mL of 1% lidocaine. ESTIMATED BLOOD LOSS: Minimal. COMPLICATIONS: None. INDICATIONS: The patient is a 73-year-old male who in the intensive care unit and critically ill. The college athletic director has asked that a central line be placed. The patient and family understand risks and benefits of procedure and wished to proceed with procedure. Consent was obtained. DESCRIPTION OF PROCEDURE: The left groin was prepped and draped in a sterile fashion. Ultrasound was used to locate the left femoral vein. Using ultrasound guidance, the left femoral vein was then accessed, dark nonpulsatile blood was withdrawn. The guidewire was inserted through the needle and the needle was removed. A #11 blade was used to make a stab incision at the insertion site. Triple lumen catheter was inserted over the wire and the wire was removed. All ports were able to be accessed without difficulty and flushed with heparinized saline. The catheter was secured using 3-0 silk suture to secure in place. The patient also had difficulty getting a blood gas, therefore, under ultrasound guidance, the left femoral artery was stuck obtaining specimen and passed off to nursing. Pressure was held at this site for approximately 5 minutes. The area was then washed and dried and sterile bandage was applied. The patient tolerated procedure well without any complications. Job ID: [id number] DocumentID: [id number] Dictated Date: 05/04/2018 11:41:34 [employer] Date: 05/04/2018 14:37:33 Dictated By: MATEUS SHUKLA DO
== END 2018-05-04 14:30 | disposition expired | DRG 871 ==
LOC: ICU 10:23 → OBSVTOIN 05-04 09:23
PROVIDERS: ADMIT Internal Medicine; ATTEND Internal Medicine
PROC: 06HM33Z Insertion of Infusion Device into Right Femoral Vein, Percutaneous Approach (ICD-10-PCS; principal; 2018-05-04)
DX: A41.9 Sepsis, unspecified organism (principal); I69.354 Hemiplegia and hemiparesis following cerebral infarction affecting left non-dominant side; J69.0 Pneumonitis due to inhalation of food and vomit; N17.9 Acute kidney failure, unspecified; E87.2 Acidosis; I48.1 Persistent atrial fibrillation; E46 Unspecified protein-calorie malnutrition; I50.20 Unspecified systolic (congestive) heart failure; I48.2 Chronic atrial fibrillation; I69.391 Dysphagia following cerebral infarction; I25.10 Atherosclerotic heart disease of native coronary artery without angina pectoris; E11.42 Type 2 diabetes mellitus with diabetic polyneuropathy; I25.5 Ischemic cardiomyopathy; I35.0 Nonrheumatic aortic (valve) stenosis; K21.9 Gastro-esophageal reflux disease without esophagitis; K59.09 Other constipation; K52.9 Noninfective gastroenteritis and colitis, unspecified; F32.9 Major depressive disorder, single episode, unspecified; H91.90 Unspecified hearing loss, unspecified ear; Z79.01 Long term (current) use of anticoagulants; Z95.1 Presence of aortocoronary bypass graft; Z95.5 Presence of coronary angioplasty implant and graft; Z79.4 Long term (current) use of insulin
CPT/HCPCS: 36415; 36600; 71045; 80048; 80202; 82274; 82805; 82962; 83605; 83735; 83880; 84100; 85007; 85025; 85027; 93005; 94640; G0378